=== PATIENT | male | born 1955 | race Caucasian/White ===

== ENCOUNTER 2017-04-25 17:58 | Day surgery (SDC) | payer BC ==
[~2017-04-25] VITALS: Ht 177.8 cm; Wt 115.2 kg
[~2017-04-25 17:58] MED LIST: ALLP300T PO; AMLO10TA4 PO; AMLO10TA82 PO; ASP81TEC PO; CLON1TAB18 PO; D50KC PO; DOXA4TAB2 PO; EPIN0.3P2 IM; FEXO180T84 PO; FLUT9.9S NS; GLIM1TAB PO; HYDR-229 PO; LORA10CA PO; METH4TAB PO; METO-333 PO; MONT10TA21 PO; NF-URO10 PO; OLME40TA14 PO; OMEP40CA36 PO; OXYC-201 PO; PNT40TEC PO; POTA10TA10 PO; RANI75TA30 PO; SPIR25TA3 PO; TORS10TA5 PO; TRM50T PO
--- OUTSIDE RECORDS SUMMARY | 2017-04-25 18:08 | XMS REPORT ---
Author Author THERESE OLIVIA [facility] eClinicalWorks Address Unknown Phone Unavailable Care Team Providers Care Battery Charger Tester Name Role Phone THERESE OLIVIA Unavailable Allergies No Known Allergies Problems Problem Type Condition Code Onset Dates Condition Status Assessment Encounter for immunization Z23 Active Medications No Known Medications Procedures Procedure Coding System Code Date SINGLE IMMUNIZATION ADMIN CPT-4 83996 Jun 03, 2016 FLUARIX QUAD P-FREE 3 AND UP .50 2015 CPT-4 02124 Jun 03, 2016 Results No Known Results Immunizations Vaccine Administration Date FLUARIX QUAD P-FREE 3 AND UP .50 2015Jun 03, 2016 Summary Purpose eClinicalWorks Submission
--- OUTSIDE RECORDS SUMMARY | 2017-04-25 18:08 | XMS REPORT | Clinical Summary ---
Author Author User, BRITT Macias [facility] Address Unknown Phone Allergies, Adverse Reactions, Alerts Allergy Name Reaction Description Start Date Severity Status Provider VALTURNA Critical Active Yulia Cruz XYLOCAINE Critical Active Yulia Cruz PENICILLIN Critical Active Yulia Cruz Conditions or Problems Problem Name Problem Code Onset Date Status Entry Date Provider Comment Standard Description Annotate RENAL CALCULUS 592.0 Resolved Yulia Cruz Calculus of kidney ACQUIRED CYST OF KIDNEY 593.2 Resolved Yulia Cruz Cyst of kidney, acquired HYPERTENSION 401.1 Resolved Yulia Cruz Benign essential hypertension ALLERGIC RHINITIS, SEASONAL 477.0 Resolved Yulia Cruz Allergic rhinitis due to pollen ANGIOEDEMA 995.1 Resolved Yulia Cruz Angioneurotic edema, not elsewhere classified EDEMA LEG 782.3 Resolved Yulia Cruz Edema ANEMIA NOS 285.9 Resolved Yulia Cruz Anemia, unspecified HYPERCALCEMIA 275.42 Resolved Yulia Cruz Hypercalcemia HYPERGLYCEMIA, MILD 790.6 Correction Yulia Cruz Other abnormal blood chemistry DIABETES MELLITUS, NONINSULIN DEPENDENT (NIDDM) 250.02 Active Yulia Cruz Diabetes mellitus without mention of complication, type II or unspecified type, uncontrolled HYPERTENSION, SEVERE 401.0 Active Yulia Cruz Malignant essential hypertension DIZZINESS 780.4 Resolved Yulia Cruz Dizziness and giddiness HYPOKALEMIA 276.8 Resolved Yulia Cruz Hypopotassemia FLANK PAIN, RIGHT 789.09 Resolved Yulia Cruz Abdominal pain, other specified site; multiple sites ABDOMINAL PAIN, RIGHT UPPER QUADRANT 789.01 Resolved Yulia Cruz Abdominal pain, right upper quadrant OTITIS MEDIA 382.9 Resolved Yulia Cruz Unspecified otitis media URINARY FREQUENCY 788.41 Resolved Yulia Cruz Urinary frequency HEALTH SCREENING V70.0 Resolved Yulia Cruz Routine general medical examination at a health care facility CHEST PAIN, ATYPICAL 786.59 Resolved Yulia Cruz Other chest pain DYSPNEA 786.09 Resolved Yulia Cruz Other dyspnea and respiratory abnormality CONJUNCTIVITIS 372.30 Resolved Yulia Cruz Conjunctivitis, unspecified ELECTROCARDIOGRAM, ABNORMAL 794.31 Resolved Yulia Cruz Nonspecific abnormal electrocardiogram [ECG] [EKG] WEIGHT GAIN, ABNORMAL 783.1 Active Yulia Cruz Abnormal weight gain HEALTH SCREENING V70.0 Resolved Yulia Cruz Routine general medical examination at a health care facility BRADYCARDIA 427.89 Active Yulia Cruz Other specified cardiac dysrhythmias HEADACHE 784.0 Active Yulia Cruz Headache CELLULITIS 682.9 Resolved Yulia Cruz Cellulitis and abscess of unspecified sites HEALTH SCREENING V70.0 Active Yulia Cruz Routine general medical examination at a health care facility Medication List Medication Instructions Start Date Stop Date Generic Name NDC Status Provider Patient Instruction TIZANIDINE HCL 2 MG TABS 1-2 TABS PO QHS TIZANIDINE HCL 79206892038 Active Nohemi Swartz ZYRTEC 10 MG TAB 1 PO QD CETIRIZINE HCL Active Yulia Cruz KEFLEX 500 MG CAP 1 PO TID for 7 days CEPHALEXIN 91317967525 No Longer Active Yuliamilagros Cruz BYDUREON 2 MG SUSR 1 injection weekly EXENATIDE 67759400379 Active Nohemi Swartz TOPAMAX 25 MG TABS 1 PO BID TOPIRAMATE 30949023529 No Longer Active Yulia Cruz FIORINAL 325-50-40 MG CAP 1 PO TID prn ASPIRIN- CAFFEINE-BUTALBITAL 78075089960 No Longer Active Yulia Cruz FLUTICASONE PROPIONATE 50 MCG/ACT SUSP 2 Puffs Each Nostril Daily FLUTICASONE PROPIONATE 98348693577 Active Yulia Cruz METOPROLOL TARTRATE 25 MG TABS 1 PO BID METOPROLOL TARTRATE 73603619402 No Longer Active Yulia Cruz DINA ALLERGY 180 MG TABS 1 po daily FEXOFENADINE HCL 15222114677 No Longer Active Yulia Cruz DOXAZOSIN MESYLATE 4 MG TABS 1 PO QPM DOXAZOSIN MESYLATE 59765383965 Active Nohemi Swartz DEMADEX 20 MG TABS 1/2 PO daily TORSEMIDE 67369076022 No Longer Active Yulia Cruz TORSEMIDE 10 MG TABS 1 pO DAILY TORSEMIDE 10331515219 Active Nohemi Swratz [employer] TEST DISK Test BS BID DX: Diabetes GLUCOSE BLOOD 14190734595 Active Nohemi Swartz CATAPRES 0.1 MG TABS 1 PO BID CLONIDINE HCL 26737386181 No Longer Active Yulia Ny Cruz EPLERENONE 50 MG TABS 1 PO daily EPLERENONE 59866281099 No Longer Active Yulia Ny Cruz ALDACTONE 25 MG TABS 1 PO daily SPIRONOLACTONE 98466435555 Active Nohemi Swartz HYDROCHLOROTHIAZIDE 25 MG TAB 1 PO daily HYDROCHLOROTHIAZIDE 10380666047 No Longer Active Yulia Ny Cruz OMEPRAZOLE 20 MG CPDR 1 PO BID OMEPRAZOLE 16621305095 No Longer Active Yulia Ny Cruz CARAFATE 1 GM TABS 1 PO 30 minutes before meals and at bedtime SUCRALFATE 41805434336 No Longer Active Yulia Ny Cruz ALLOPURINOL 300 MG TABS 1 PO daily ALLOPURINOL 96637589445 No Longer Active Yulia Ny Cruz BENICAR 20 MG TABS 1 PO daily OLMESARTAN MEDOXOMIL 32275665621 No Longer Active Yulia Ny Cruz BENTYL 10 MG CAP 1 PO QID prn abdominal pain DICYCLOMINE HCL 28256516364 No Longer Active Yulia Ny Cruz VITAMIN D (ERGOCALCIFEROL) 10994 UNIT CAPS 1 PO every week ERGOCALCIFEROL 13133990927 Active Nohemi Swartz OCUFLOX 0.3 % SOLN 2 drops left ear BID for 5 days OFLOXACIN 57058089251 No Longer Active Yulia Ny Cruz KEFLEX 500 MG CAP 1 PO TID for 7 days CEPHALEXIN 97920342721 No Longer Active Yulia Ny Cruz OMEPRAZOLE 20 MG CPDR 1 PO BID OMEPRAZOLE 17302361423 No Longer Active Yulia Ny Cruz PREDNISONE 20 MG TAB 2 pills at once for 2 days then 1 pill daily for 2 days PREDNISONE 54195908990 No Longer Active Yulia Ny Cruz NORCO 10-325 MG TABS 1 PO TID prn HYDROCODONE-ACETAMINOPHEN 12256675301 Active Yulia Cruz ULTRAM 50 MG TABS 1 PO TID prn pain TRAMADOL HCL 98970199259 No Longer Active Yulia Alejandra Anthony K-DUR 10 MEQ TAB CR 1 PO BID prn POTASSIUM CHLORIDE No Longer Active Yulia Roachner LASIX 20 MG TAB 1 PO daily prn FUROSEMIDE 37450299504 No Longer Active Yulia Roachner EPIPEN 2-AYAH 0.3 MG/0.3ML AYDIN as directed EPINEPHRINE 14653462434 Active Yulia Roachner NORVASC 10 MG TABS 1 PO daily AMLODIPINE BESYLATE 87023226819 Active Nohemi Mcelroytis CLARITIN 10 MG TAB 1 PO daily LORATADINE 04357517587 No Longer Active Yulia Alejandra Anthony Immunizations Vaccine Administration Date Value Standard Description Influenza vaccine given done influenza virus vaccine, unspecified formulation Influenza vaccine given 08/02/11 influenza virus vaccine, unspecified formulation Vital Signs Date Name Value Unit Range Description blood pressure, diastolic - 8462-4 82 mm[Hg] BP erazo blood pressure, systolic - 8480-6 135 mm[Hg] BP sys pulse rate E&M - 8867-4 82 /min Heart rate respiratory rate E&M - 9279-1 14 /min Resp rate temperature E&M 98.6 [degF] Body temperature weight E&M - 3141-9 250 [lb_av] Weight Measured blood pressure, diastolic - 8462-4 80 mm[Hg] BP erazo blood pressure, systolic - 8480-6 134 mm[Hg] BP sys pulse rate E&M - 8867-4 74 /min Heart rate respiratory rate E&M - 9279-1 14 /min Resp rate temperature E&M 98.6 [degF] Body temperature weight E&M - 3141-9 255 [lb_av] Weight Measured blood pressure, diastolic - 8462-4 94 mm[Hg] BP erazo blood pressure, systolic - 8480-6 156 mm[Hg] BP sys pulse rate E&M - 8867-4 82 /min Heart rate respiratory rate E&M - 9279-1 14 /min Resp rate temperature E&M 98.1 [degF] Body temperature weight E&M - 3141-9 260 [lb_av] Weight Measured blood pressure, diastolic - 8462-4 82 mm[Hg] BP erazo blood pressure, systolic - 8480-6 140 mm[Hg] BP sys pulse rate E&M - 8867-4 90 /min Heart rate respiratory rate E&M - 9279-1 14 /min Resp rate temperature E&M 98.6 [degF] Body temperature weight E&M - 3141-9 255 [lb_av] Weight Measured blood pressure, diastolic - 8462-4 84 mm[Hg] BP erazo blood pressure, systolic - 8480-6 152 mm[Hg] BP sys pulse rate E&M - 8867-4 68 /min Heart rate respiratory rate E&M - 9279-1 14 /min Resp rate weight E&M - 3141-9 260 [lb_av] Weight Measured blood pressure, diastolic - 8462-4 90 mm[Hg] BP erazo blood pressure, systolic - 8480-6 150 mm[Hg] BP sys pulse rate E&M - 8867-4 76 /min Heart rate respiratory rate E&M - 9279-1 14 /min Resp rate temperature E&M 98.6 [degF] Body temperature weight E&M - 3141-9 260 [lb_av] Weight Measured blood pressure, diastolic - 8462-4 80 mm[Hg] BP erazo blood pressure, systolic - 8480-6 145 mm[Hg] BP sys pulse rate E&M - 8867-4 80 /min Heart rate respiratory rate E&M - 9279-1 14 /min Resp rate temperature E&M 98.6 [degF] Body temperature weight E&M - 3141-9 265 [lb_av] Weight Measured blood pressure, diastolic - 8462-4 100 mm[Hg] BP erazo blood pressure, systolic - 8480-6 150 mm[Hg] BP sys pulse rate E&M - 8867-4 88 /min Heart rate respiratory rate E&M - 9279-1 14 /min Resp rate temperature E&M 98.6 [degF] Body temperature weight E&M - 3141-9 270 [lb_av] Weight Measured Diagnostic Results Date Name Value Unit Range Description Clinical Lists Update: CBC,CMP,Chol,Trig,HgA1c,Microalbumin - Chemistry triglyceride, serum, fasting 88 mg/dL creatinine, serum 0.9 mg/dL alanine aminotransferase (SGPT), serum 41 U/L hemoglobin A1C, blood, as % of total hemoglobin 7.1 % carbon dioxide, venous blood 21 mmol/L aspartate aminotransferase (SGOT), serum 19 U/L cholesterol, serum 151 mg/dL bilirubin, serum, total 0.7 mg/dL albumin, serum 4.3 g/dL Estimated Glomerular Filtration Rate (calc) >60 mL/min/1.73m2 alkaline phosphatase, serum 55 U/L potassium, serum 4.1 mmol/L urea nitrogen, blood 16 mg/dL sodium, serum 139 mmol/L calcium, serum 9.2 mg/dL protein, total, serum 6.9 g/dL chloride, serum 107 mmol/L glucose, plasma fasting 164 mg/dL Clinical Lists Update: CBC,CMP,Chol,Trig,HgA1c,Microalbumin - Hematology hematocrit, blood 44.0 % red blood cell distribution width 13.8 % mean corpuscular volume, RBC 89 fL leukocyte count, blood 6.3 10*3/mm3 erythrocyte (RBC) count 4.92 10*6/mm3 platelet count 216 10*3/mm3 hemoglobin, blood 14.6 g/dL Clinical Lists Update: CMP,FLP,HGA1C - Chemistry albumin, serum 4.3 g/dL alkaline phosphatase, serum 51 U/L urea nitrogen, blood 19 mg/dL calcium, serum 9.3 mg/dL chloride, serum 108 mmol/L cholesterol, serum 145 mg/dL carbon dioxide, venous blood 22 mmol/L creatinine, serum 0.8 mg/dL HDL cholesterol, serum 37 mg/dL hemoglobin A1C, blood, as % of total hemoglobin 7.3 % LDL cholesterol, serum 88 mg/dL potassium, serum 4.1 mmol/L protein, total, serum 6.7 g/dL aspartate aminotransferase (SGOT), serum 14 U/L alanine aminotransferase (SGPT), serum 28 U/L bilirubin, serum, total 0.6 mg/dL triglyceride, serum, fasting 101 mg/dL sodium, serum 141 mmol/L cholesterol/HDL ratio, serum, percent 3.9 glucose, plasma fasting 142 mg/dL Estimated Glomerular Filtration Rate (calc) >60 mL/min/1.73m2 Clinical Lists Update: CMP,FLP,TSH,HgA1c - Chemistry Estimated Glomerular Filtration Rate (calc) >50 mL/min/1.73m2 glucose, plasma fasting 155 mg/dL cholesterol/HDL ratio, serum, percent 3.8 sodium, serum 141 mmol/L triglyceride, serum, fasting 66 mg/dL bilirubin, serum, total 0.4 mg/dL alanine aminotransferase (SGPT), serum 38 U/L aspartate aminotransferase (SGOT), serum 16 U/L protein, total, serum 6.6 g/dL potassium, serum 3.6 mmol/L LDL cholesterol, serum 99 mg/dL thyroid stimulating hormone, serum 2.21 u[iU]/mL hemoglobin A1C, blood, as % of total hemoglobin 7.7 % HDL cholesterol, serum 40 mg/dL creatinine, serum 0.8 mg/dL carbon dioxide, venous blood 22 mmol/L cholesterol, serum 152 mg/dL chloride, serum 108 mmol/L calcium, serum 8.8 mg/dL urea nitrogen, blood 11 mg/dL alkaline phosphatase, serum 55 U/L albumin, serum 4.2 g/dL Clinical Lists Update: ER LABS - Chemistry bilirubin, serum, total 0.7 mg/dL albumin, serum 4.6 g/dL glucose, plasma fasting 169 mg/dL Estimated Glomerular Filtration Rate (calc) >60 mL/min/1.73m2 alanine aminotransferase (SGPT), serum 34 U/L aspartate aminotransferase (SGOT), serum 20 U/L protein, total, serum 7.5 g/dL potassium, serum 3.9 mmol/L creatinine, serum 0.87 mg/dL carbon dioxide, venous blood 23 mmol/L chloride, serum 105 mmol/L calcium, serum 9.2 mg/dL urea nitrogen, blood 16 mg/dL alkaline phosphatase, serum 53 U/L sodium, serum 140 mmol/L Clinical Lists Update: ER LABS - Hematology erythrocyte (RBC) count 5.16 10*6/mm3 leukocyte count, blood 7.0 10*3/mm3 mean corpuscular volume, RBC 86 fL red blood cell distribution width 13.7 % platelet count 256 10*3/mm3 hematocrit, blood 44 % hemoglobin, blood 15.4 g/dL Clinical Lists Update: ER LABS - Urinalysis blood in urine (hemoglobin) by dipstick neg protein, urine, semiquantitative (dipstick) neg mucus on urinalysis neg epithelial cells, urine rare /[LPF] hyaline casts, urine none /[LPF] bacteria, urine microscopy none RBC urine by microscopy none WBC urine on microscopy none {Cells}/[HPF] appearance, urine Clear Yellow urobilinogen, urine, semiquantitative (dipstick) normal specific gravity, urine 1.015 pH, urine, semiquantitative 5 nitrite, urine, semiquantitative neg ketones, urine, by test strip neg glucose, urine, semiquantitative neg bilirubin, urine neg Clinical Lists Update: Microalbumin - Urinalysis microalbumin, urine, semiquantitative 0.6 mg/dL Encounters Code Encounter Date Provider Facility CPT-61116 Ofc Vst, Est Level IV 19:28:17 SCREENER OPERATOR Yulia Cruz DO, FACP CPT-68116 Ofc Vst, Est Level III 13:16:58 CDT Yulia Bender S Anthony, DO, FACP CPT-04112 Ofc Vst, Est Level IV 17:21:21 CDT Yulia Ny Del Rio Anthony, DO, FACP CPT-73026 Ofc Vst, Est Level III 15:17:17 CDT Yulia Ny Del Rio Anthony, DO, FACP CPT-23178 Ofc Vst, Est Level III 15:56:42 CDT Yulia Ny Del Rio Anthony, DO, FACP CPT-43131 Ofc Vst, Est Level IV 20:17:52 CDT Yulia Ny Del Rio Anthony, DO, FACP CPT-52005 Ofc Vst, Est Level IV 16:24:31 CDT Yuliamilagros Cruz [facility] CPT-84894 Ofc Vst, Est Level IV 19:42:41 SCREENER OPERATOR Yuliamilagros Del Rio Anthony, DO, FACP CPT-43853 Ofc Vst, Est Level III 12:16:29 CDT Yuliamilagros Del Rio Anthony, DO, FACP CPT-31612 Ofc Vst, Est Level III 14:15:44 SCREENER OPERATOR Yulia Del Rio Anthony, DO, FACP CPT-60193 Ofc Vst, Est Level II 13:59:22 SCREENER OPERATOR Yuliamilagros Del Rio Anthony, DO, FACP CPT-31192 Ofc Vst, Est Level III 16:44:22 CDT Yuliamilagros Del Rio Anthony, DO, FACP CPT-92683 Ofc Vst, Est Level IV 15:56:20 CDT Yuliamilagros Cruz [facility] CPT-44150 Ofc Vst, Est Level IV 15:37:15 CDT Yulia Ny Cruz [facility] CPT-43751 Ofc Vst, Est Level III 16:02:15 SCREENER OPERATOR Yulia Ny Treadwellmilagros Cruz DO, FACP CPT-95779 Ofc Vst, Est Level IV 16:07:44 SCREENER OPERATOR [facility] Ny [facility] OFF[facility] CPT-08951 Ofc Vst, Est Level III 15:08:39 SCREENER OPERATOR [facility] OFFICE CPT-52933 Ofc Vst, Est Level V 15:13:27 CDT [facility] Ny Cruz Yulia Cruz DO, FACP CPT-03808 Ofc Vst, New Level IV 17:01:35 CDT [facility] Ny [facility] Procedures Code Procedure Name Date Entry Date Standard Description CPT-15964 Preventive, Est, (40-64) 19:33:45 CDT CPT-03870 EKG w/ Interpretation 16:24:31 CDT CPT-28753 Preventive, Est, (40-64) 12:55:40 SCREENER OPERATOR CPT-70258 EKG w/ Interpretation 19:42:41 SCREENER OPERATOR CPT-77068 Preventive, Est, (40-64) 20:10:48 CDT
--- OUTSIDE RECORDS SUMMARY | 2017-04-25 18:08 | XMS REPORT | Clinical Summary ---
Author Author User, BRITT Organization [facility] Address Unknown Phone Allergies, Adverse Reactions, [...] TABS 1-2 TABS PO QHS TIZANIDINE HCL 36722496067 Active Nohemi Swartz ZYRTEC 10 MG TAB 1 PO QD CETIRIZINE HCL Active Yuliamilagros Cruz KEFLEX 500 MG CAP 1 PO TID for 7 days CEPHALEXIN 89226484879 No Longer Active Yulia Ny Cruz BYDUREON 2 MG SUSR 1 injection weekly EXENATIDE 14675614922 Active Nohemi Swartz TOPAMAX 25 MG TABS 1 PO BID TOPIRAMATE 92633242703 No Longer Active Yuliamilagros Cruz FIORINAL 325-50-40 MG CAP 1 PO TID prn ASPIRIN- CAFFEINE-BUTALBITAL 54392619302 No Longer Active Yuliamilagros Cruz FLUTICASONE PROPIONATE 50 MCG/ACT SUSP 2 Puffs Each Nostril Daily FLUTICASONE PROPIONATE 65429833829 Active Yuliamilagros Cruz METOPROLOL TARTRATE 25 MG TABS 1 PO BID METOPROLOL TARTRATE 69133641984 No Longer Active Yulia Cruz DINA ALLERGY 180 MG TABS 1 po daily FEXOFENADINE HCL 85048701813 No Longer Active Yuliamilagros Cruz DOXAZOSIN MESYLATE 4 MG TABS 1 PO QPM DOXAZOSIN MESYLATE 33998169758 Active Nohemi Swartz DEMADEX 20 MG TABS 1/2 PO daily TORSEMIDE 18310315073 No Longer Active Yuliamilagros Cruz TORSEMIDE 10 MG TABS 1 pO DAILY TORSEMIDE 43608479438 Active Nohemi Swartz [employer] TEST DISK Test BS BID DX: Diabetes GLUCOSE BLOOD 42294647638 Active Nohemi Swartz CATAPRES 0.1 MG TABS 1 PO BID CLONIDINE HCL 31465092442 No Longer Active Yulia Ny Cruz EPLERENONE 50 MG TABS 1 PO daily EPLERENONE 86170074641 No Longer Active Yulia Ny Cruz ALDACTONE 25 MG TABS 1 PO daily SPIRONOLACTONE 42617279641 Active Nohemi Swartz HYDROCHLOROTHIAZIDE 25 MG TAB 1 PO daily HYDROCHLOROTHIAZIDE 56363271520 No Longer Active Yulia Ny Cruz OMEPRAZOLE 20 MG CPDR 1 PO BID OMEPRAZOLE 10405674055 No Longer Active Yulia Ny Cruz CARAFATE 1 GM TABS 1 PO 30 minutes before meals and at bedtime SUCRALFATE 73916373147 No Longer Active Yulia Ny Cruz ALLOPURINOL 300 MG TABS 1 PO daily ALLOPURINOL 62730798633 No Longer Active Yulia Ny Cruz BENICAR 20 MG TABS 1 PO daily OLMESARTAN MEDOXOMIL 11708295791 No Longer Active Yulia Ny Cruz BENTYL 10 MG CAP 1 PO QID prn abdominal pain DICYCLOMINE HCL 49803224532 No Longer Active Yulia Ny Cruz VITAMIN D (ERGOCALCIFEROL) 18512 UNIT CAPS 1 PO every week ERGOCALCIFEROL 52251929982 Active Nohemijanet Swartz OCUFLOX 0.3 % SOLN 2 drops left ear BID for 5 days OFLOXACIN 64616825554 No Longer Active Yulia Ny Cruz KEFLEX 500 MG CAP 1 PO TID for 7 days CEPHALEXIN 23680739235 No Longer Active Yulia Ny Cruz OMEPRAZOLE 20 MG CPDR 1 PO BID OMEPRAZOLE 80797348884 No Longer Active Yulia Ny Cruz PREDNISONE 20 MG TAB 2 pills at once for 2 days then 1 pill daily for 2 days PREDNISONE 10133819511 No Longer Active Yulia Ny Cruz NORCO 10-325 MG TABS 1 PO TID prn HYDROCODONE-ACETAMINOPHEN 89712989646 Active Yulia Alejandra Anthony ULTRAM 50 MG TABS 1 PO TID prn pain TRAMADOL HCL 05283565112 No Longer Active Yulia Cruz K-DUR 10 MEQ TAB CR 1 PO BID prn POTASSIUM CHLORIDE No Longer Active Yuliamilagros Cruz LASIX 20 MG TAB 1 PO daily prn FUROSEMIDE 43972429431 No Longer Active Yuliamilagros Cruz EPIPEN 2-AYAH 0.3 MG/0.3ML AYDIN as directed EPINEPHRINE 35083885161 Active Yulia Ny Anthony NORVASC 10 MG TABS 1 PO daily AMLODIPINE BESYLATE 05211612808 Active Nohemi Swartz CLARITIN 10 MG TAB 1 PO daily LORATADINE 24103109137 No Longer Active Yulia Cruz Immunizations Vaccine Administration Date Value Standard Description [...] mg/dL Encounters Code Encounter Date Provider Facility CPT-35702 Ofc Vst, Est Level IV 19:28:17 ROOM ATTENDANTS Yulia Cruz DO, FACP CPT-95135 Ofc Vst, Est Level III 13:16:58 CDT Yulia Ny Cruz Yulia S Cruz, DO, FACP CPT-46291 Ofc Vst, Est Level IV 17:21:21 CDT Yulia Ny Del Rio Anthony, DO, FACP CPT-25404 Ofc Vst, Est Level III 15:17:17 CDT Yulia Ny Del Rio Anthony, DO, FACP CPT-63687 Ofc Vst, Est Level III 15:56:42 CDT Yulia Ny Del Rio Anthony, DO, FACP CPT-44532 Ofc Vst, Est Level IV 20:17:52 CDT Yulia Ny Del Rio Anthony, DO, FACP CPT-05187 Ofc Vst, Est Level IV 16:24:31 CDT Yuliamilagros Cruz [facility] CPT-80256 Ofc Vst, Est Level IV 19:42:41 ROOM ATTENDANTS Yuliamilagros Del Rio Anthony, DO, FACP CPT-63503 Ofc Vst, Est Level III 12:16:29 CDT Yulia Ny Del Rio Anthony, DO, FACP CPT-51491 Ofc Vst, Est Level III 14:15:44 ROOM ATTENDANTS Yulia Del Rio Anthony, DO, FACP CPT-38841 Ofc Vst, Est Level II 13:59:22 ROOM ATTENDANTS Yuliamilagros Del Rio Anthony, DO, FACP CPT-47465 Ofc Vst, Est Level III 16:44:22 CDT Yuliamilagros Del Rio Anthony, DO, FACP CPT-75219 Ofc Vst, Est Level IV 15:56:20 CDT Yuliamilagros Cruz [facility] CPT-88614 Ofc Vst, Est Level IV 15:37:15 CDT Yuliamilagros Alejandra Cruz [facility] CPT-81294 Ofc Vst, Est Level III 16:02:15 ROOM ATTENDANTS Yulia Ny Cruz Yulia Cruz DO, FACP CPT-71265 Ofc Vst, Est Level IV 16:07:44 ROOM ATTENDANTS [facility] OFF[facility] CPT-24107 Ofc Vst, Est Level III 15:08:39 ROOM ATTENDANTS [facility] OFFICE CPT-73785 Ofc Vst, Est Level V 15:13:27 CDT [facility] Cruz Yulia Cruz DO, FACP CPT-33615 Ofc Vst, New Level IV 17:01:35 CDT [facility] Procedures Code Procedure Name Date Entry Date Standard Description CPT-18245 Preventive, Est, (40-64) 19:33:45 CDT CPT-96289 EKG w/ Interpretation 16:24:31 CDT CPT-31426 Preventive, Est, (40-64) 12:55:40 ROOM ATTENDANTS CPT-93939 EKG w/ Interpretation 19:42:41 ROOM ATTENDANTS CPT-63682 Preventive, Est, (40-64) 20:10:48 CDT
--- OUTSIDE RECORDS SUMMARY | 2017-04-25 18:09 | XMS REPORT | Clinical Summary ---
Author Author User, BRITT Macias [place] [facility] Address Unknown Phone Allergies, Adverse Reactions, [...] TABS 1-2 TABS PO QHS TIZANIDINE HCL 42561031018 Active Nohemi Swartz ZYRTEC 10 MG TAB 1 PO QD CETIRIZINE HCL Active Yulia Cruz KEFLEX 500 MG CAP 1 PO TID for 7 days CEPHALEXIN 23833070402 No Longer Active Yuliamilagros Cruz BYDUREON 2 MG SUSR 1 injection weekly EXENATIDE 40283400046 Active Nohemi Swartz TOPAMAX 25 MG TABS 1 PO BID TOPIRAMATE 96280317897 No Longer Active Yulia Cruz FIORINAL 325-50-40 MG CAP 1 PO TID prn ASPIRIN- CAFFEINE-BUTALBITAL 67131912962 No Longer Active Yulia Cruz FLUTICASONE PROPIONATE 50 MCG/ACT SUSP 2 Puffs Each Nostril Daily FLUTICASONE PROPIONATE 50802558574 Active Yulia Cruz METOPROLOL TARTRATE 25 MG TABS 1 PO BID METOPROLOL TARTRATE 44255731520 No Longer Active Yulia Cruz DINA ALLERGY 180 MG TABS 1 po daily FEXOFENADINE HCL 12161645407 No Longer Active Yulia Cruz DOXAZOSIN MESYLATE 4 MG TABS 1 PO QPM DOXAZOSIN MESYLATE 66627518496 Active Nohemi Swartz DEMADEX 20 MG TABS 1/2 PO daily TORSEMIDE 49363685199 No Longer Active Yulia Cruz TORSEMIDE 10 MG TABS 1 pO DAILY TORSEMIDE 79233667087 Active Nohemi Swartz [employer] TEST DISK Test BS BID DX: Diabetes GLUCOSE BLOOD 13045207300 Active Nohemi Swartz CATAPRES 0.1 MG TABS 1 PO BID CLONIDINE HCL 61266824699 No Longer Active Yulia Ny Cruz EPLERENONE 50 MG TABS 1 PO daily EPLERENONE 02479763404 No Longer Active Yulia Ny Cruz ALDACTONE 25 MG TABS 1 PO daily SPIRONOLACTONE 21645969497 Active Nohemi Swartz HYDROCHLOROTHIAZIDE 25 MG TAB 1 PO daily HYDROCHLOROTHIAZIDE 39489552703 No Longer Active Yulia Ny Cruz OMEPRAZOLE 20 MG CPDR 1 PO BID OMEPRAZOLE 69227176036 No Longer Active Yulia Ny Cruz CARAFATE 1 GM TABS 1 PO 30 minutes before meals and at bedtime SUCRALFATE 15952992273 No Longer Active Yulia Ny Cruz ALLOPURINOL 300 MG TABS 1 PO daily ALLOPURINOL 35943104456 No Longer Active Yulia Ny Cruz BENICAR 20 MG TABS 1 PO daily OLMESARTAN MEDOXOMIL 42112815640 No Longer Active Yulia Ny Cruz BENTYL 10 MG CAP 1 PO QID prn abdominal pain DICYCLOMINE HCL 15139164276 No Longer Active Yulia Ny Cruz VITAMIN D (ERGOCALCIFEROL) 19695 UNIT CAPS 1 PO every week ERGOCALCIFEROL 84162360407 Active Nohemi Swartz OCUFLOX 0.3 % SOLN 2 drops left ear BID for 5 days OFLOXACIN 13874104493 No Longer Active Yulia Ny Cruz KEFLEX 500 MG CAP 1 PO TID for 7 days CEPHALEXIN 95302885966 No Longer Active Yulia Ny Cruz OMEPRAZOLE 20 MG CPDR 1 PO BID OMEPRAZOLE 29278066626 No Longer Active Yulia Ny Cruz PREDNISONE 20 MG TAB 2 pills at once for 2 days then 1 pill daily for 2 days PREDNISONE 52277752160 No Longer Active Yulia Ny Cruz NORCO 10-325 MG TABS 1 PO TID prn HYDROCODONE-ACETAMINOPHEN 37314846331 Active Yulia Cruz ULTRAM 50 MG TABS 1 PO TID prn pain TRAMADOL HCL 74327668791 No Longer Active Yulia Alejandra Anthony K-DUR 10 MEQ TAB CR 1 PO BID prn POTASSIUM CHLORIDE No Longer Active Yulia Roachner LASIX 20 MG TAB 1 PO daily prn FUROSEMIDE 35505974809 No Longer Active Yulia Roachner EPIPEN 2-AYAH 0.3 MG/0.3ML AYDIN as directed EPINEPHRINE 39752465675 Active Yulia Roachner NORVASC 10 MG TABS 1 PO daily AMLODIPINE BESYLATE 67508830810 Active Nohemi Mcelroytis CLARITIN 10 MG TAB 1 PO daily LORATADINE 86119951492 No Longer Active Yulia Alejandra Anthony Immunizations [...] mg/dL Encounters Code Encounter Date Provider Facility CPT-40976 Ofc Vst, Est Level IV 19:28:17 DOCK OPERATIONS SUPERVISOR Yulia Cruz DO, FACP CPT-53215 Ofc Vst, Est Level III 13:16:58 CDT Yulia Bender S Anthony, DO, FACP CPT-69893 Ofc Vst, Est Level IV 17:21:21 CDT Yulia Ny Del Rio Anthony, DO, FACP CPT-17855 Ofc Vst, Est Level III 15:17:17 CDT Yulia Ny Del Rio Anthony, DO, FACP CPT-77373 Ofc Vst, Est Level III 15:56:42 CDT Yulia Ny Del Rio Anthony, DO, FACP CPT-82492 Ofc Vst, Est Level IV 20:17:52 CDT Yulia Ny Del Rio Anthony, DO, FACP CPT-85876 Ofc Vst, Est Level IV 16:24:31 CDT Yuliamilagros Cruz [facility] CPT-88949 Ofc Vst, Est Level IV 19:42:41 DOCK OPERATIONS SUPERVISOR Yuliamilagros Del Rio Anthony, DO, FACP CPT-01270 Ofc Vst, Est Level III 12:16:29 CDT Yuliamilagros Del Rio Anthony, DO, FACP CPT-35874 Ofc Vst, Est Level III 14:15:44 DOCK OPERATIONS SUPERVISOR Yulia Del Rio Anthony, DO, FACP CPT-16587 Ofc Vst, Est Level II 13:59:22 DOCK OPERATIONS SUPERVISOR Yuliamilagros Del Rio Anthony, DO, FACP CPT-79657 Ofc Vst, Est Level III 16:44:22 CDT Yuliamilagros Del Rio Anthony, DO, FACP CPT-82894 Ofc Vst, Est Level IV 15:56:20 CDT Yuliamilagros Cruz [facility] CPT-22096 Ofc Vst, Est Level IV 15:37:15 CDT Yulia Ny Cruz [facility] CPT-40763 Ofc Vst, Est Level III 16:02:15 DOCK OPERATIONS SUPERVISOR Yulia Ny Treadwellmilagros Cruz DO, FACP CPT-48904 Ofc Vst, Est Level IV 16:07:44 DOCK OPERATIONS SUPERVISOR [facility] Ny [facility] OFFICE CPT-35979 Ofc Vst, Est Level III 15:08:39 DOCK OPERATIONS SUPERVISOR [facility] OFFICE CPT-34105 Ofc Vst, Est Level V 15:13:27 CDT [facility] Ny Cruz Yulia Cruz DO, FACP CPT-31470 Ofc Vst, New Level IV 17:01:35 CDT [facility] Ny [facility] Procedures Code Procedure Name Date Entry Date Standard Description CPT-92825 Preventive, Est, (40-64) 19:33:45 CDT CPT-03500 EKG w/ Interpretation 16:24:31 CDT CPT-49202 Preventive, Est, (40-64) 12:55:40 DOCK OPERATIONS SUPERVISOR CPT-40288 EKG w/ Interpretation 19:42:41 DOCK OPERATIONS SUPERVISOR CPT-26745 Preventive, Est, (40-64) 20:10:48 CDT
--- OUTSIDE RECORDS SUMMARY | 2017-04-25 18:10 | XMS REPORT | Clinical Summary ---
Author Author User, BRITT Organization [place] [facility] Address Unknown Phone Allergies, Adverse Reactions, [...] essential hypertension ALLERGIC RHINITIS, SEASONAL 477.0 Resolved Yuila Cruz Allergic rhinitis due to pollen ANGIOEDEMA [...] TABS 1-2 TABS PO QHS TIZANIDINE HCL 71465325722 Active Nohemi Swartz ZYRTEC 10 MG TAB 1 PO QD CETIRIZINE HCL Active Yuliamilagros Cruz KEFLEX 500 MG CAP 1 PO TID for 7 days CEPHALEXIN 42428932472 No Longer Active Yulia Ny Cruz BYDUREON 2 MG SUSR 1 injection weekly EXENATIDE 19345583421 Active Nohemi Swartz TOPAMAX 25 MG TABS 1 PO BID TOPIRAMATE 87627543040 No Longer Active Yuliamilagros Cruz FIORINAL 325-50-40 MG CAP 1 PO TID prn ASPIRIN- CAFFEINE-BUTALBITAL 51857690267 No Longer Active Yuliamilagros Cruz FLUTICASONE PROPIONATE 50 MCG/ACT SUSP 2 Puffs Each Nostril Daily FLUTICASONE PROPIONATE 26029094796 Active Yuliamilagros Cruz METOPROLOL TARTRATE 25 MG TABS 1 PO BID METOPROLOL TARTRATE 92804471391 No Longer Active Yulia Cruz DINA ALLERGY 180 MG TABS 1 po daily FEXOFENADINE HCL 44285921080 No Longer Active Yuliamilagros Cruz DOXAZOSIN MESYLATE 4 MG TABS 1 PO QPM DOXAZOSIN MESYLATE 88179782644 Active Nohemi Swartz DEMADEX 20 MG TABS 1/2 PO daily TORSEMIDE 03555473749 No Longer Active Yuliamilagros Cruz TORSEMIDE 10 MG TABS 1 pO DAILY TORSEMIDE 62171870792 Active Nohemi Swartz [employer] TEST DISK Test BS BID DX: Diabetes GLUCOSE BLOOD 96755982987 Active Nohemi Swartz CATAPRES 0.1 MG TABS 1 PO BID CLONIDINE HCL 61246416294 No Longer Active Yulia Ny Cruz EPLERENONE 50 MG TABS 1 PO daily EPLERENONE 47048506255 No Longer Active Yulia Ny Cruz ALDACTONE 25 MG TABS 1 PO daily SPIRONOLACTONE 74334625112 Active Nohemi Swartz HYDROCHLOROTHIAZIDE 25 MG TAB 1 PO daily HYDROCHLOROTHIAZIDE 73270548563 No Longer Active Yulia Ny Cruz OMEPRAZOLE 20 MG CPDR 1 PO BID OMEPRAZOLE 84679448680 No Longer Active Yulia Ny Cruz CARAFATE 1 GM TABS 1 PO 30 minutes before meals and at bedtime SUCRALFATE 22879585419 No Longer Active Yulia Ny Cruz ALLOPURINOL 300 MG TABS 1 PO daily ALLOPURINOL 66666293994 No Longer Active Yulia Ny Cruz BENICAR 20 MG TABS 1 PO daily OLMESARTAN MEDOXOMIL 55906624092 No Longer Active Yulia Ny Cruz BENTYL 10 MG CAP 1 PO QID prn abdominal pain DICYCLOMINE HCL 44804519673 No Longer Active Yulia Ny Cruz VITAMIN D (ERGOCALCIFEROL) 20604 UNIT CAPS 1 PO every week ERGOCALCIFEROL 20701541662 Active Nohemijanet Swartz OCUFLOX 0.3 % SOLN 2 drops left ear BID for 5 days OFLOXACIN 74681803154 No Longer Active Yulia Ny Cruz KEFLEX 500 MG CAP 1 PO TID for 7 days CEPHALEXIN 88485019073 No Longer Active Yulia Ny Cruz OMEPRAZOLE 20 MG CPDR 1 PO BID OMEPRAZOLE 20812212481 No Longer Active Yulia Ny Cruz PREDNISONE 20 MG TAB 2 pills at once for 2 days then 1 pill daily for 2 days PREDNISONE 61944284352 No Longer Active Yulia Ny Cruz NORCO 10-325 MG TABS 1 PO TID prn HYDROCODONE-ACETAMINOPHEN 85426873966 Active Yulia Alejandra Anthony ULTRAM 50 MG TABS 1 PO TID prn pain TRAMADOL HCL 92606868915 No Longer Active Yulia Cruz K-DUR 10 MEQ TAB CR 1 PO BID prn POTASSIUM CHLORIDE No Longer Active Yuliamilagros Cruz LASIX 20 MG TAB 1 PO daily prn FUROSEMIDE 47689407853 No Longer Active Yuliamilagros Cruz EPIPEN 2-AYAH 0.3 MG/0.3ML AYDIN as directed EPINEPHRINE 08645939949 Active Yulia Ny Anthony NORVASC 10 MG TABS 1 PO daily AMLODIPINE BESYLATE 56806413361 Active Nohemi Swartz CLARITIN 10 MG TAB 1 PO daily LORATADINE 88238196447 No Longer Active Yulia Cruz Immunizations Vaccine [...] mg/dL Encounters Code Encounter Date Provider Facility CPT-95977 Ofc Vst, Est Level IV 19:28:17 HYDROGENATION STILL OPERATOR Yulia Cruz DO, FACP CPT-30155 Ofc Vst, Est Level III 13:16:58 CDT Yulia Ny Cruz Yulia S Cruz, DO, FACP CPT-79704 Ofc Vst, Est Level IV 17:21:21 CDT Yulia Ny Del Rio Anthony, DO, FACP CPT-89390 Ofc Vst, Est Level III 15:17:17 CDT Yulia Ny Del Rio Anthony, DO, FACP CPT-68585 Ofc Vst, Est Level III 15:56:42 CDT Yulia Ny Del Rio Anthony, DO, FACP CPT-56691 Ofc Vst, Est Level IV 20:17:52 CDT Yulia Ny Del Rio Anthony, DO, FACP CPT-73473 Ofc Vst, Est Level IV 16:24:31 CDT Yuliamilagros Cruz [facility] CPT-99681 Ofc Vst, Est Level IV 19:42:41 HYDROGENATION STILL OPERATOR Yuliamilagros Del Rio Anthony, DO, FACP CPT-70804 Ofc Vst, Est Level III 12:16:29 CDT Yulia Ny Del Rio Anthony, DO, FACP CPT-94042 Ofc Vst, Est Level III 14:15:44 HYDROGENATION STILL OPERATOR Yulia Del Rio Anthony, DO, FACP CPT-07981 Ofc Vst, Est Level II 13:59:22 HYDROGENATION STILL OPERATOR Yuliamilagros Del Rio Anthony, DO, FACP CPT-94308 Ofc Vst, Est Level III 16:44:22 CDT Yuliamilagros Del Rio Anthony, DO, FACP CPT-98604 Ofc Vst, Est Level IV 15:56:20 CDT Yuliamilagros Cruz [facility] CPT-66282 Ofc Vst, Est Level IV 15:37:15 CDT Yuliamilagros Alejandra Cruz [facility] CPT-81158 Ofc Vst, Est Level III 16:02:15 HYDROGENATION STILL OPERATOR Yulia Ny Cruz Yulia Cruz DO, FACP CPT-52415 Ofc Vst, Est Level IV 16:07:44 HYDROGENATION STILL OPERATOR [facility] CPT-72084 Ofc Vst, Est Level III 15:08:39 HYDROGENATION STILL OPERATOR [facility] OFF[facility] CPT-01573 Ofc Vst, Est Level V 15:13:27 CDT [facility] Ny Cruz Yulia Cruz DO, FACP CPT-08982 Ofc Vst, New Level IV 17:01:35 CDT [facility] Ny [facility] Procedures Code Procedure Name Date Entry Date Standard Description CPT-69207 Preventive, Est, (40-64) 19:33:45 CDT CPT-68289 EKG w/ Interpretation 16:24:31 CDT CPT-81218 Preventive, Est, (40-64) 12:55:40 HYDROGENATION STILL OPERATOR CPT-43368 EKG w/ Interpretation 19:42:41 HYDROGENATION STILL OPERATOR CPT-47527 Preventive, Est, (40-64) 20:10:48 CDT
--- OUTSIDE RECORDS SUMMARY | 2017-04-25 18:10 | XMS REPORT | Clinical Summary ---
Author Author User, BRITT Organization [place] [facility] Address Unknown Phone Allergies, Adverse Reactions, [...] abscess of unspecified sites HEALTH SCREENING V70.0 Resolved Yulia Cruz Routine general medical examination at a health care facility Medication List Medication Instructions Start Date Stop Date Generic Name NDC Status Provider Patient Instruction PRESTIGE SMART LANCETS TEST BS BID DX: 250.02 PRESTIGE SMART LANCETS Active Yuliamilagros Cruz TIZANIDINE HCL 2 MG TABS 1-2 TABS PO QHS TIZANIDINE HCL 32120646018 Active Nohemi Swartz ZYRTEC 10 MG TAB 1 PO QD CETIRIZINE HCL Active Yulia Ny Cruz KEFLEX 500 MG CAP 1 PO TID for 7 days CEPHALEXIN 39791576986 No Longer Active Yuliamilagros Cruz BYDUREON 2 MG SUSR 1 injection weekly EXENATIDE 75546062775 Active Nohemi Swartz TOPAMAX 25 MG TABS 1 PO BID TOPIRAMATE 41663445036 No Longer Active Yuliamilagros Cruz FIORINAL 325-50-40 MG CAP 1 PO TID prn ASPIRIN- CAFFEINE-BUTALBITAL 14113473011 No Longer Active Yuliamilagros Cruz FLUTICASONE PROPIONATE 50 MCG/ACT SUSP 2 Puffs Each Nostril Daily FLUTICASONE PROPIONATE 89304074912 Active Yulia Cruz METOPROLOL TARTRATE 25 MG TABS 1 PO BID METOPROLOL TARTRATE 01489569163 No Longer Active Yuliamilagros Cruz DINA ALLERGY 180 MG TABS 1 po daily FEXOFENADINE HCL 66741842383 No Longer Active Yuliamilagros Cruz DOXAZOSIN MESYLATE 4 MG TABS 1 PO QPM DOXAZOSIN MESYLATE 63699884330 Active Nohemi Swartz DEMADEX 20 MG TABS 1/2 PO daily TORSEMIDE 88931929376 No Longer Active Uyliamilagros Cruz TORSEMIDE 10 MG TABS 1 pO DAILY TORSEMIDE 45267922631 Active Nohemi Swartz [employer] TEST DISK Test BS BID DX: Diabetes GLUCOSE BLOOD 33876110099 Active Nohemi Maxime CATAPRES 0.1 MG TABS 1 PO BID CLONIDINE HCL 59388066018 No Longer Active Yulia Ny Cruz EPLERENONE 50 MG TABS 1 PO daily EPLERENONE 32366489163 No Longer Active Yulia Ny Cruz ALDACTONE 25 MG TABS 1 PO daily SPIRONOLACTONE 04116439159 Active Nohemijanet Swartz HYDROCHLOROTHIAZIDE 25 MG TAB 1 PO daily HYDROCHLOROTHIAZIDE 42374778782 No Longer Active Yulia Ny Cruz OMEPRAZOLE 20 MG CPDR 1 PO BID OMEPRAZOLE 78236015704 No Longer Active Yulia Ny Cruz CARAFATE 1 GM TABS 1 PO 30 minutes before meals and at bedtime SUCRALFATE 61705527457 No Longer Active Yulia Ny Cruz ALLOPURINOL 300 MG TABS 1 PO daily ALLOPURINOL 36128480940 No Longer Active Yulia Ny Cruz BENICAR 20 MG TABS 1 PO daily OLMESARTAN MEDOXOMIL 46417953274 No Longer Active Yulia Ny Cruz BENTYL 10 MG CAP 1 PO QID prn abdominal pain DICYCLOMINE HCL 59473612889 No Longer Active Yulia Ny Cruz VITAMIN D (ERGOCALCIFEROL) 00843 UNIT CAPS 1 PO every week ERGOCALCIFEROL 22703616791 Active Nohemijanet Swartz OCUFLOX 0.3 % SOLN 2 drops left ear BID for 5 days OFLOXACIN 95328770370 No Longer Active Yulia Ny Cruz KEFLEX 500 MG CAP 1 PO TID for 7 days CEPHALEXIN 11279818260 No Longer Active Yulia Ny Cruz OMEPRAZOLE 20 MG CPDR 1 PO BID OMEPRAZOLE 41537013183 No Longer Active Yulia Ny Cruz PREDNISONE 20 MG TAB 2 pills at once for 2 days then 1 pill daily for 2 days PREDNISONE 84428764012 No Longer Active Yulia Cruz NORCO 10-325 MG TABS 1 PO TID prn HYDROCODONE-ACETAMINOPHEN 69526031803 Active Yulia Cruz ULTRAM 50 MG TABS 1 PO TID prn pain TRAMADOL HCL 70707988419 No Longer Active Yulia Cruz K-DUR 10 MEQ TAB CR 1 PO BID prn POTASSIUM CHLORIDE No Longer Active Yulia Cruz LASIX 20 MG TAB 1 PO daily prn FUROSEMIDE 49692841052 No Longer Active Yulia Cruz EPIPEN 2-AAYH 0.3 MG/0.3ML AYDIN as directed EPINEPHRINE 51220391229 Active Yulia Cruz NORVASC 10 MG TABS 1 PO daily AMLODIPINE BESYLATE 20562551493 Active Nohemi Swartz CLARITIN 10 MG TAB 1 PO daily LORATADINE 87299031921 No Longer Active Yulia Cruz Immunizations Vaccine Administration Date Value Standard Description Influenza vaccine given done influenza virus vaccine, unspecified formulation Influenza vaccine given 08/02/11 influenza virus vaccine, unspecified formulation Vital Signs Date Name Value Unit Range Description blood pressure, diastolic - 8462-4 80 mm[Hg] BP erazo blood pressure, systolic - 8480-6 130 mm[Hg] BP sys pulse rate E&M - 8867-4 60 /min Heart rate respiratory rate E&M - 9279-1 14 /min Resp rate temperature E&M 98.2 [degF] Body temperature weight E&M - 3141-9 [...] E&M - 3141-9 255 [lb_av] Weight Measured Diagnostic Results Date Name Value Unit Range Description Clinical Lists Update: CBC,CMP,Chol,Trig,HgA1c,Microalbumin - Chemistry Estimated Glomerular Filtration Rate (calc) >60 mL/min/1.73m2 glucose, plasma fasting 164 mg/dL albumin, serum 4.3 g/dL alkaline phosphatase, serum 55 U/L urea nitrogen, blood 16 mg/dL calcium, serum 9.2 mg/dL chloride, serum 107 mmol/L cholesterol, serum 151 mg/dL sodium, serum 139 mmol/L triglyceride, serum, fasting 88 mg/dL bilirubin, serum, total 0.7 mg/dL alanine aminotransferase (SGPT), serum 41 U/L aspartate aminotransferase (SGOT), serum 19 U/L protein, total, serum 6.9 g/dL potassium, serum 4.1 mmol/L hemoglobin A1C, blood, as % of total hemoglobin 7.1 % creatinine, serum 0.9 mg/dL carbon dioxide, venous blood 21 mmol/L Clinical Lists Update: CBC,CMP,Chol,Trig,HgA1c,Microalbumin - Hematology mean corpuscular volume, RBC 89 fL red blood cell distribution width 13.8 % hemoglobin, blood 14.6 g/dL platelet count 216 10*3/mm3 erythrocyte (RBC) count 4.92 10*6/mm3 leukocyte count, blood 6.3 10*3/mm3 hematocrit, blood 44.0 % Clinical Lists Update: CMP,CHOL,TRIG,HgA1c - Chemistry Estimated Glomerular Filtration Rate (calc) >60 mL/min/1.73m2 glucose, plasma fasting 174 mg/dL sodium, serum 141 mmol/L triglyceride, serum, fasting 54 mg/dL bilirubin, serum, total 0.6 mg/dL alanine aminotransferase (SGPT), serum 37 U/L aspartate aminotransferase (SGOT), serum 19 U/L protein, total, serum 6.6 g/dL potassium, serum 4.0 mmol/L hemoglobin A1C, blood, as % of total hemoglobin 7.0 % creatinine, serum 0.8 mg/dL carbon dioxide, venous blood 23 mmol/L cholesterol, serum 155 mg/dL chloride, serum 107 mmol/L calcium, serum 9.1 mg/dL urea nitrogen, blood 12 mg/dL alkaline phosphatase, serum 49 U/L albumin, serum 4.3 g/dL Clinical Lists Update: CMP,FLP,HGA1C - Chemistry albumin, serum 4.3 g/dL Estimated Glomerular Filtration Rate (calc) >60 mL/min/1.73m2 urea nitrogen, blood 19 mg/dL calcium, serum [...] percent 3.9 glucose, plasma fasting 142 mg/dL alkaline phosphatase, serum 51 U/L Clinical Lists Update: CMP,FLP,TSH,HgA1c - Chemistry alkaline phosphatase, serum 55 U/L urea nitrogen, blood 11 mg/dL calcium, serum 8.8 mg/dL chloride, serum 108 mmol/L cholesterol, serum 152 mg/dL carbon dioxide, venous blood 22 mmol/L creatinine, serum 0.8 mg/dL HDL cholesterol, serum 40 mg/dL hemoglobin A1C, blood, as % of total hemoglobin 7.7 % thyroid stimulating hormone, serum 2.21 u[iU]/mL LDL cholesterol, serum 99 mg/dL potassium, serum 3.6 mmol/L protein, total, serum 6.6 g/dL aspartate aminotransferase (SGOT), serum 16 U/L alanine aminotransferase (SGPT), serum 38 U/L bilirubin, serum, total 0.4 mg/dL triglyceride, serum, fasting 66 mg/dL sodium, serum 141 mmol/L cholesterol/HDL ratio, serum, percent 3.8 glucose, plasma fasting 155 mg/dL albumin, serum 4.2 g/dL Estimated Glomerular Filtration Rate (calc) >50 mL/min/1.73m2 Clinical Lists Update: ER LABS - Chemistry sodium, serum 140 mmol/L albumin, serum 4.6 g/dL Estimated Glomerular Filtration Rate (calc) >60 mL/min/1.73m2 bilirubin, serum, total 0.7 mg/dL alanine aminotransferase (SGPT), serum 34 U/L aspartate aminotransferase (SGOT), serum 20 U/L protein, total, serum 7.5 g/dL potassium, serum 3.9 mmol/L creatinine, serum 0.87 mg/dL carbon dioxide, venous blood 23 mmol/L chloride, serum 105 mmol/L calcium, serum 9.2 mg/dL urea nitrogen, blood 16 mg/dL alkaline phosphatase, serum 53 U/L glucose, plasma fasting 169 mg/dL Clinical Lists Update: ER LABS - Hematology leukocyte count, blood 7.0 10*3/mm3 mean corpuscular volume, RBC 86 fL red blood cell distribution width 13.7 % erythrocyte (RBC) count 5.16 10*6/mm3 hematocrit, blood 44 % hemoglobin, blood 15.4 g/dL platelet count 256 10*3/mm3 Clinical Lists Update: ER LABS - Urinalysis blood in urine (hemoglobin) by dipstick neg protein, urine, semiquantitative (dipstick) neg epithelial cells, urine rare /[LPF] hyaline casts, urine none /[LPF] bacteria, urine microscopy none RBC urine by microscopy none WBC urine on microscopy none {Cells}/[HPF] appearance, urine Clear Yellow urobilinogen, urine, semiquantitative (dipstick) normal specific gravity, urine 1.015 pH, urine, semiquantitative 5 nitrite, urine, semiquantitative neg glucose, urine, semiquantitative neg bilirubin, urine neg ketones, urine, by test strip neg mucus on urinalysis neg Clinical Lists Update: Microalbumin - Urinalysis microalbumin, urine, semiquantitative 0.6 mg/dL Encounters Code Encounter Date Provider Facility CPT-16195 Ofc Vst, Est Level IV 15:58:20 CDT Yulia Cruz DO, FACP CPT-18163 Ofc Vst, Est Level IV 19:28:17 WATER CHEMIST Yulia Cruz DO, FACP CPT-28382 Ofc Vst, Est Level III 13:16:58 CDT Yulia Ny Cruz Yulia S Cruz, DO, FACP CPT-71523 Ofc Vst, Est Level IV 17:21:21 CDT Yulia Ny Del Rio Anthony, DO, FACP CPT-77467 Ofc Vst, Est Level III 15:17:17 CDT Yulia Ny Del Rio Anthony, DO, FACP CPT-20962 Ofc Vst, Est Level III 15:56:42 CDT Yulia Ny Del Rio Anthony, DO, FACP CPT-09013 Ofc Vst, Est Level IV 20:17:52 CDT Yulia Ny Del Rio Anthony, DO, FACP CPT-61933 Ofc Vst, Est Level IV 16:24:31 CDT Yuliamilagros Cruz [facility] CPT-52840 Ofc Vst, Est Level IV 19:42:41 WATER CHEMIST Yulia Ny Del Rio Anthony, DO, FACP CPT-64211 Ofc Vst, Est Level III 12:16:29 CDT Yulia Ny Del Rio Anthony, DO, FACP CPT-57921 Ofc Vst, Est Level III 14:15:44 WATER CHEMIST Yulia Del Rio Anthony, DO, FACP CPT-39984 Ofc Vst, Est Level II 13:59:22 WATER CHEMIST Yulia Ny Del Rio Anthony, DO, FACP CPT-50163 Ofc Vst, Est Level III 16:44:22 CDT Yuliamilagros Del Rio Anthony, DO, FACP CPT-27952 Ofc Vst, Est Level IV 15:56:20 CDT Yuliamilagros Alejandra Cruz [facility] CPT-66659 Ofc Vst, Est Level IV 15:37:15 CDT Yulia Ny Anthony [facility] CPT-09045 Ofc Vst, Est Level III 16:02:15 WATER CHEMIST Yuliamilagros Cruz Yulia S DO Anthony, FACP CPT-65172 Ofc Vst, Est Level IV 16:07:44 WATER CHEMIST [facility] OFFICE CPT-19646 Ofc Vst, Est Level III 15:08:39 WATER CHEMIST [facility] OFFICE CPT-12261 Ofc Vst, Est Level V 15:13:27 [facility]T [facility] DO, FACP CPT-01509 Ofc Vst, New Level IV 17:01:35 CDT [facility] Procedures Code Procedure Name Date Entry Date Standard Description CPT-13404 Preventive, Est, (40-64) 19:33:45 CDT CPT-78690 EKG w/ Interpretation 16:24:31 CDT CPT-16060 Preventive, Est, (40-64) 12:55:40 WATER CHEMIST CPT-61402 EKG w/ Interpretation 19:42:41 WATER CHEMIST CPT-65816 Preventive, Est, (40-64) 20:10:48 CDT
--- OUTSIDE RECORDS SUMMARY | 2017-04-25 18:11 | XMS REPORT | Clinical Summary ---
Author Author User, BRITT Macias [place] [facility] Address Unknown Phone Allergies, Adverse Reactions, [...] TABS 1-2 TABS PO QHS TIZANIDINE HCL 54224937260 Active Nohemi Swartz ZYRTEC 10 MG TAB 1 PO QD CETIRIZINE HCL Active Yulia Cruz KEFLEX 500 MG CAP 1 PO TID for 7 days CEPHALEXIN 11821418908 No Longer Active Yuliamilagros Cruz BYDUREON 2 MG SUSR 1 injection weekly EXENATIDE 20073840077 Active Nohemi Swartz TOPAMAX 25 MG TABS 1 PO BID TOPIRAMATE 89068837839 No Longer Active Yuila Cruz FIORINAL 325-50-40 MG CAP 1 PO TID prn ASPIRIN- CAFFEINE-BUTALBITAL 47045564005 No Longer Active Yulia Cruz FLUTICASONE PROPIONATE 50 MCG/ACT SUSP 2 Puffs Each Nostril Daily FLUTICASONE PROPIONATE 80622996222 Active Yulia Cruz METOPROLOL TARTRATE 25 MG TABS 1 PO BID METOPROLOL TARTRATE 77038544973 No Longer Active Yulia Cruz DINA ALLERGY 180 MG TABS 1 po daily FEXOFENADINE HCL 71489155669 No Longer Active Yulia Cruz DOXAZOSIN MESYLATE 4 MG TABS 1 PO QPM DOXAZOSIN MESYLATE 90115210213 Active Nohemi Swartz DEMADEX 20 MG TABS 1/2 PO daily TORSEMIDE 31573636901 No Longer Active Yulia Cruz TORSEMIDE 10 MG TABS 1 pO DAILY TORSEMIDE 12208104850 Active Nohemi Swartz [employer] TEST DISK Test BS BID DX: Diabetes GLUCOSE BLOOD 95746609157 Active Nohemi Swartz CATAPRES 0.1 MG TABS 1 PO BID CLONIDINE HCL 80968327182 No Longer Active Yulia Ny Cruz EPLERENONE 50 MG TABS 1 PO daily EPLERENONE 74659489868 No Longer Active Yulia Ny Cruz ALDACTONE 25 MG TABS 1 PO daily SPIRONOLACTONE 09071956437 Active Nohemi Swartz HYDROCHLOROTHIAZIDE 25 MG TAB 1 PO daily HYDROCHLOROTHIAZIDE 89086667970 No Longer Active Yulia Ny Cruz OMEPRAZOLE 20 MG CPDR 1 PO BID OMEPRAZOLE 56230473680 No Longer Active Yulia Ny Cruz CARAFATE 1 GM TABS 1 PO 30 minutes before meals and at bedtime SUCRALFATE 02430601573 No Longer Active Yulia Ny Cruz ALLOPURINOL 300 MG TABS 1 PO daily ALLOPURINOL 49114889035 No Longer Active Yulia Ny Cruz BENICAR 20 MG TABS 1 PO daily OLMESARTAN MEDOXOMIL 56067821281 No Longer Active Yulia Ny Cruz BENTYL 10 MG CAP 1 PO QID prn abdominal pain DICYCLOMINE HCL 92166540666 No Longer Active Yulia Ny Cruz VITAMIN D (ERGOCALCIFEROL) 16218 UNIT CAPS 1 PO every week ERGOCALCIFEROL 03799453504 Active Nohemi Swartz OCUFLOX 0.3 % SOLN 2 drops left ear BID for 5 days OFLOXACIN 82419638192 No Longer Active Yulia Ny Cruz KEFLEX 500 MG CAP 1 PO TID for 7 days CEPHALEXIN 30207602869 No Longer Active Yulia Ny Cruz OMEPRAZOLE 20 MG CPDR 1 PO BID OMEPRAZOLE 47205817164 No Longer Active Yulia Ny Cruz PREDNISONE 20 MG TAB 2 pills at once for 2 days then 1 pill daily for 2 days PREDNISONE 65648010664 No Longer Active Yulia Ny Cruz NORCO 10-325 MG TABS 1 PO TID prn HYDROCODONE-ACETAMINOPHEN 70471404651 Active Yulia Cruz ULTRAM 50 MG TABS 1 PO TID prn pain TRAMADOL HCL 50553025964 No Longer Active Yulia Alejandra Anthony K-DUR 10 MEQ TAB CR 1 PO BID prn POTASSIUM CHLORIDE No Longer Active Yulia Roachner LASIX 20 MG TAB 1 PO daily prn FUROSEMIDE 33465038370 No Longer Active Yulia Roachner EPIPEN 2-AYAH 0.3 MG/0.3ML AYIDN as directed EPINEPHRINE 48853607585 Active Yulia Roachner NORVASC 10 MG TABS 1 PO daily AMLODIPINE BESYLATE 10066192274 Active Nohemi Mcelroytis CLARITIN 10 MG TAB 1 PO daily LORATADINE 67754315973 No Longer Active Yulia Alejandra Anthony Immunizations [...] Description Clinical Lists Update: CBC,CMP,Chol,Trig,HgA1c,Microalbumin - Chemistry sodium, serum 139 mmol/L chloride, serum 107 mmol/L cholesterol, serum 151 mg/dL carbon dioxide, venous blood 21 mmol/L creatinine, serum 0.9 mg/dL Estimated Glomerular Filtration Rate (calc) >60 mL/min/1.73m2 glucose, plasma fasting 164 mg/dL hemoglobin A1C, blood, as % of total hemoglobin 7.1 % albumin, serum 4.3 g/dL alkaline phosphatase, serum 55 U/L bilirubin, serum, total 0.7 mg/dL urea nitrogen, blood 16 mg/dL calcium, serum 9.2 mg/dL triglyceride, serum, fasting 88 mg/dL potassium, serum 4.1 mmol/L protein, total, serum 6.9 g/dL aspartate aminotransferase (SGOT), serum 19 U/L alanine aminotransferase (SGPT), serum 41 U/L Clinical Lists Update: CBC,CMP,Chol,Trig,HgA1c,Microalbumin - Hematology leukocyte count, blood 6.3 10*3/mm3 hematocrit, blood 44.0 % erythrocyte (RBC) count 4.92 10*6/mm3 hemoglobin, blood 14.6 g/dL platelet count 216 10*3/mm3 mean corpuscular volume, RBC 89 fL red blood cell distribution width 13.8 % Clinical Lists Update: CMP,FLP,HGA1C - Chemistry Estimated Glomerular Filtration Rate (calc) >60 mL/min/1.73m2 creatinine, serum 0.8 mg/dL carbon dioxide, venous blood 22 mmol/L cholesterol, serum 145 mg/dL cholesterol/HDL ratio, serum, percent 3.9 chloride, serum 108 mmol/L sodium, serum 141 mmol/L alanine aminotransferase (SGPT), serum 28 U/L LDL cholesterol, serum 88 mg/dL aspartate aminotransferase (SGOT), serum 14 U/L protein, total, serum 6.7 g/dL potassium, serum 4.1 mmol/L triglyceride, serum, fasting 101 mg/dL calcium, serum 9.3 mg/dL urea nitrogen, blood 19 mg/dL bilirubin, serum, total 0.6 mg/dL alkaline phosphatase, serum 51 U/L albumin, serum 4.3 g/dL hemoglobin A1C, blood, as % of total hemoglobin 7.3 % HDL cholesterol, serum 37 mg/dL glucose, plasma fasting 142 mg/dL Clinical Lists Update: CMP,FLP,TSH,HgA1c - Chemistry potassium, serum 3.6 mmol/L glucose, plasma fasting 155 mg/dL sodium, serum 141 mmol/L urea nitrogen, blood 11 mg/dL protein, total, serum 6.6 g/dL calcium, serum 8.8 mg/dL aspartate aminotransferase (SGOT), serum 16 U/L carbon dioxide, venous blood 22 mmol/L cholesterol, serum 152 mg/dL alkaline phosphatase, serum 55 U/L cholesterol/HDL ratio, serum, percent 3.8 albumin, serum 4.2 g/dL alanine aminotransferase (SGPT), serum 38 U/L LDL cholesterol, serum 99 mg/dL thyroid stimulating hormone, serum 2.21 u[iU]/mL hemoglobin A1C, blood, as % of total hemoglobin 7.7 % creatinine, serum 0.8 mg/dL chloride, serum 108 mmol/L HDL cholesterol, serum 40 mg/dL Estimated Glomerular Filtration Rate (calc) >50 mL/min/1.73m2 triglyceride, serum, fasting 66 mg/dL bilirubin, serum, total 0.4 mg/dL Clinical Lists Update: ER LABS - Chemistry chloride, serum 105 mmol/L carbon dioxide, venous blood 23 mmol/L creatinine, serum 0.87 mg/dL Estimated Glomerular Filtration Rate (calc) >60 mL/min/1.73m2 glucose, plasma fasting 169 mg/dL albumin, serum 4.6 g/dL alkaline phosphatase, serum 53 U/L bilirubin, serum, total 0.7 mg/dL urea nitrogen, blood 16 mg/dL calcium, serum 9.2 mg/dL potassium, serum 3.9 mmol/L protein, total, serum 7.5 g/dL aspartate aminotransferase (SGOT), serum 20 U/L alanine aminotransferase (SGPT), serum 34 U/L sodium, serum 140 mmol/L Clinical Lists Update: ER LABS - Hematology hemoglobin, blood 15.4 g/dL erythrocyte (RBC) count 5.16 10*6/mm3 leukocyte count, blood 7.0 10*3/mm3 platelet count 256 10*3/mm3 hematocrit, blood 44 % red blood cell distribution width 13.7 % mean corpuscular volume, RBC 86 fL Clinical Lists Update: ER LABS - Urinalysis blood in urine (hemoglobin) by dipstick neg mucus on urinalysis neg WBC urine on microscopy none {Cells}/[HPF] urobilinogen, urine, semiquantitative (dipstick) normal nitrite, urine, semiquantitative neg pH, urine, semiquantitative 5 protein, urine, semiquantitative (dipstick) neg RBC urine by microscopy none bilirubin, urine neg bacteria, urine microscopy none appearance, urine Clear Yellow ketones, urine, by test strip neg hyaline casts, urine none /[LPF] specific gravity, urine 1.015 epithelial cells, urine rare /[LPF] glucose, urine, semiquantitative neg Clinical Lists Update: Microalbumin - Urinalysis microalbumin, urine, semiquantitative 0.6 mg/dL Encounters Code Encounter Date Provider Facility CPT-65181 Ofc Vst, Est Level IV 19:28:17 WOOD PATTERNMAKER APPRENTICE Yulia Cruz DO, FACP CPT-17077 Ofc Vst, Est Level III 13:16:58 CDT Yulia Bender S Anthony, DO, FACP CPT-85670 Ofc Vst, Est Level IV 17:21:21 CDT Yulia Ny Del Rio Anthony, DO, FACP CPT-59230 Ofc Vst, Est Level III 15:17:17 CDT Yulia Ny Del Rio Anthony, DO, FACP CPT-94436 Ofc Vst, Est Level III 15:56:42 CDT Yulia Ny Del Rio Anthony, DO, FACP CPT-47949 Ofc Vst, Est Level IV 20:17:52 CDT Yulia Ny Del Rio Anthony, DO, FACP CPT-18702 Ofc Vst, Est Level IV 16:24:31 CDT Yuliamilagros Cruz [facility] CPT-11761 Ofc Vst, Est Level IV 19:42:41 WOOD PATTERNMAKER APPRENTICE Yuliamilagros Del Rio Anthony, DO, FACP CPT-42730 Ofc Vst, Est Level III 12:16:29 CDT Yuliamilagros Del Rio Anthony, DO, FACP CPT-32312 Ofc Vst, Est Level III 14:15:44 WOOD PATTERNMAKER APPRENTICE Yulia Del Rio Anthony, DO, FACP CPT-51426 Ofc Vst, Est Level II 13:59:22 WOOD PATTERNMAKER APPRENTICE Yuliamilagros Del Rio Anthony, DO, FACP CPT-23290 Ofc Vst, Est Level III 16:44:22 CDT Yuliamilagros Del Rio Anthony, DO, FACP CPT-33945 Ofc Vst, Est Level IV 15:56:20 CDT Yuliamilagros Cruz [facility] CPT-00261 Ofc Vst, Est Level IV 15:37:15 CDT Yulia Ny Cruz [facility] CPT-31850 Ofc Vst, Est Level III 16:02:15 WOOD PATTERNMAKER APPRENTICE Yulia Ny Treadwellmilagros Cruz DO, FACP CPT-72514 Ofc Vst, Est Level IV 16:07:44 WOOD PATTERNMAKER APPRENTICE [facility] CPT-67533 Ofc Vst, Est Level III 15:08:39 WOOD PATTERNMAKER APPRENTICE [facility] CPT-33794 Ofc Vst, Est Level V 15:13:27 CDT [facility] Ny Cruz Yulia Cruz DO, FACP CPT-81549 Ofc Vst, New Level IV 17:01:35 CDT [facility] Procedures Code Procedure Name Date Entry Date Standard Description CPT-00813 Preventive, Est, (40-64) 19:33:45 CDT CPT-03156 EKG w/ Interpretation 16:24:31 CDT CPT-92484 Preventive, Est, (40-64) 12:55:40 WOOD PATTERNMAKER APPRENTICE CPT-08724 EKG w/ Interpretation 19:42:41 WOOD PATTERNMAKER APPRENTICE CPT-35960 Preventive, Est, (40-64) 20:10:48 CDT
--- OUTSIDE RECORDS SUMMARY | 2017-04-25 18:11 | XMS REPORT | Clinical Summary ---
Author Author User, BRITT Macias [place] [facility] Address Unknown Phone Allergies, Adverse Reactions, [...] dyspnea and respiratory abnormality CONJUNCTIVITIS 372.30 Resolved uYlia Cruz Conjunctivitis, unspecified ELECTROCARDIOGRAM, ABNORMAL 794.31 Resolved Yulia Cruz Nonspecific abnormal electrocardiogram [ECG] [EKG] WEIGHT GAIN, ABNORMAL 783.1 Active Yulia Cruz Abnormal weight gain HEALTH SCREENING V70.0 Resolved Yulia Cruz Routine general medical examination at a health care facility BRADYCARDIA 427.89 Active Yulia Cruz Other specified cardiac dysrhythmias HEADACHE 784.0 Active Yulai Cruz Headache CELLULITIS 682.9 Resolved Yulia Cruz Cellulitis and abscess of unspecified sites HEALTH SCREENING V70.0 Active Yulia Cruz Routine general medical examination at a health care facility Medication List Medication Instructions Start Date Stop Date Generic Name NDC Status Provider Patient Instruction TIZANIDINE HCL 2 MG TABS 1-2 TABS PO QHS TIZANIDINE HCL 34997562401 Active Nohemi Swartz ZYRTEC 10 MG TAB 1 PO QD CETIRIZINE HCL Active Yulia Cruz KEFLEX 500 MG CAP 1 PO TID for 7 days CEPHALEXIN 58043554619 No Longer Active Yuliamilagros Cruz BYDUREON 2 MG SUSR 1 injection weekly EXENATIDE 23810386480 Active Nohemi Swartz TOPAMAX 25 MG TABS 1 PO BID TOPIRAMATE 18819580313 No Longer Active Yulia Cruz FIORINAL 325-50-40 MG CAP 1 PO TID prn ASPIRIN- CAFFEINE-BUTALBITAL 44348363818 No Longer Active Yulia Cruz FLUTICASONE PROPIONATE 50 MCG/ACT SUSP 2 Puffs Each Nostril Daily FLUTICASONE PROPIONATE 73523180155 Active Yulia Cruz METOPROLOL TARTRATE 25 MG TABS 1 PO BID METOPROLOL TARTRATE 77580793817 No Longer Active Yulia Cruz DINA ALLERGY 180 MG TABS 1 po daily FEXOFENADINE HCL 67309600451 No Longer Active Yulia Cruz DOXAZOSIN MESYLATE 4 MG TABS 1 PO QPM DOXAZOSIN MESYLATE 53717116529 Active Nohemi Swartz DEMADEX 20 MG TABS 1/2 PO daily TORSEMIDE 92881944278 No Longer Active Yulia Cruz TORSEMIDE 10 MG TABS 1 pO DAILY TORSEMIDE 06385675102 Active Nohemi Swartz [employer] TEST DISK Test BS BID DX: Diabetes GLUCOSE BLOOD 82936263505 Active Nohemi Swartz CATAPRES 0.1 MG TABS 1 PO BID CLONIDINE HCL 89222551464 No Longer Active Yulia Ny Cruz EPLERENONE 50 MG TABS 1 PO daily EPLERENONE 21758447061 No Longer Active Yulia Ny Cruz ALDACTONE 25 MG TABS 1 PO daily SPIRONOLACTONE 09269851474 Active Nohemi Swartz HYDROCHLOROTHIAZIDE 25 MG TAB 1 PO daily HYDROCHLOROTHIAZIDE 99303256810 No Longer Active Yulia Ny Cruz OMEPRAZOLE 20 MG CPDR 1 PO BID OMEPRAZOLE 56627380238 No Longer Active Yulia Ny Cruz CARAFATE 1 GM TABS 1 PO 30 minutes before meals and at bedtime SUCRALFATE 91666882293 No Longer Active Yulia Ny Cruz ALLOPURINOL 300 MG TABS 1 PO daily ALLOPURINOL 80985782563 No Longer Active Yulia Ny Cruz BENICAR 20 MG TABS 1 PO daily OLMESARTAN MEDOXOMIL 30038215335 No Longer Active Yulia Ny Cruz BENTYL 10 MG CAP 1 PO QID prn abdominal pain DICYCLOMINE HCL 84256226166 No Longer Active Yulia Ny Cruz VITAMIN D (ERGOCALCIFEROL) 08896 UNIT CAPS 1 PO every week ERGOCALCIFEROL 83385641771 Active Nohemi Swartz OCUFLOX 0.3 % SOLN 2 drops left ear BID for 5 days OFLOXACIN 69368268280 No Longer Active Yuila Ny Cruz KEFLEX 500 MG CAP 1 PO TID for 7 days CEPHALEXIN 15593844697 No Longer Active Yulia Ny Cruz OMEPRAZOLE 20 MG CPDR 1 PO BID OMEPRAZOLE 99955254895 No Longer Active Yulia Ny Cruz PREDNISONE 20 MG TAB 2 pills at once for 2 days then 1 pill daily for 2 days PREDNISONE 39165978682 No Longer Active Yulia Ny Cruz NORCO 10-325 MG TABS 1 PO TID prn HYDROCODONE-ACETAMINOPHEN 76808677774 Active Yulia Cruz ULTRAM 50 MG TABS 1 PO TID prn pain TRAMADOL HCL 78375846298 No Longer Active Yulia Alejandra Anthony K-DUR 10 MEQ TAB CR 1 PO BID prn POTASSIUM CHLORIDE No Longer Active Yulia Roachner LASIX 20 MG TAB 1 PO daily prn FUROSEMIDE 79928416902 No Longer Active Yulia Roachner EPIPEN 2-AYAH 0.3 MG/0.3ML AYDIN as directed EPINEPHRINE 54994016276 Active Yulia Roachner NORVASC 10 MG TABS 1 PO daily AMLODIPINE BESYLATE 04059674254 Active Nohemi Mcelroytis CLARITIN 10 MG TAB 1 PO daily LORATADINE 33383233852 No Longer Active Yulia Alejandra Anthony Immunizations [...] mg/dL Encounters Code Encounter Date Provider Facility CPT-53455 Ofc Vst, Est Level IV 19:28:17 FINANCIAL SYSTEMS ANALYST Yulia Cruz DO, FACP CPT-07810 Ofc Vst, Est Level III 13:16:58 CDT Yulia Bender S Anthony, DO, FACP CPT-25467 Ofc Vst, Est Level IV 17:21:21 CDT Yulia Ny Del Rio Anthony, DO, FACP CPT-34902 Ofc Vst, Est Level III 15:17:17 CDT Yulia Ny Del Rio Anthony, DO, FACP CPT-12872 Ofc Vst, Est Level III 15:56:42 CDT Yulia Ny Del Rio Anthony, DO, FACP CPT-95716 Ofc Vst, Est Level IV 20:17:52 CDT Yulia Ny Del Rio Anthony, DO, FACP CPT-71772 Ofc Vst, Est Level IV 16:24:31 CDT Yuliamilagros Cruz [facility] CPT-28613 Ofc Vst, Est Level IV 19:42:41 FINANCIAL SYSTEMS ANALYST Yuliamilagros Del Rio Anthony, DO, FACP CPT-12482 Ofc Vst, Est Level III 12:16:29 CDT Yuliamilagros Del Rio Anthony, DO, FACP CPT-96272 Ofc Vst, Est Level III 14:15:44 FINANCIAL SYSTEMS ANALYST Yulia Del Rio Anthony, DO, FACP CPT-57822 Ofc Vst, Est Level II 13:59:22 FINANCIAL SYSTEMS ANALYST Yuliamilagros Del Rio Anthony, DO, FACP CPT-30879 Ofc Vst, Est Level III 16:44:22 CDT Yuliamilagros Del Rio Anthony, DO, FACP CPT-44017 Ofc Vst, Est Level IV 15:56:20 CDT Yuliamilagros Cruz [facility] CPT-73374 Ofc Vst, Est Level IV 15:37:15 CDT Yulia Ny Cruz [facility] CPT-17178 Ofc Vst, Est Level III 16:02:15 FINANCIAL SYSTEMS ANALYST Yulia Ny Treadwellmilagros Cruz DO, FACP CPT-39082 Ofc Vst, Est Level IV 16:07:44 FINANCIAL SYSTEMS ANALYST [facility]ICE CPT-53978 Ofc Vst, Est Level III 15:08:39 FINANCIAL SYSTEMS ANALYST [facility] OFFICE CPT-27887 Ofc Vst, Est Level V 15:13:27 CDT [facility] Ny Cruz Yulia Cruz DO, FACP CPT-15548 Ofc Vst, New Level IV 17:01:35 CDT [facility] Ny [facility] Procedures Code Procedure Name Date Entry Date Standard Description CPT-09068 Preventive, Est, (40-64) 19:33:45 CDT CPT-48775 EKG w/ Interpretation 16:24:31 CDT CPT-26005 Preventive, Est, (40-64) 12:55:40 FINANCIAL SYSTEMS ANALYST CPT-23852 EKG w/ Interpretation 19:42:41 FINANCIAL SYSTEMS ANALYST CPT-23171 Preventive, Est, (40-64) 20:10:48 CDT
--- OUTSIDE RECORDS SUMMARY | 2017-04-25 18:12 | XMS REPORT | CCD ---
Author Author NANDA SEQUEIRA NISHIBurak Organization Unknown Address [address] [place], [place] [address] Care Team Providers Care Skates Operator Name Role Phone LAGUNA, LUNA DO Attphys LAGUNA, LUNA DO Prisurg Vital Signs Unknown or Not Available. Allergies Allergy Code Allergy Type Reaction Status XYLOCAINE EP YOSSI 1% 0 Drug allergy Active PENICILLIN 27692 Drug allergy Active LIDOCAINE 6387 Drug allergy Active Procedures Procedure Code Procedure Type Date HOLTER MONITOR UP TO [address] 2015 CX CHEST [address] 11/02/2015 INFLUENZA A & B 401081544 SNOMED CT 11/02/2015 TROPONIN-I ADV 577533524 SNOMED CT 11/02/2015 COMPREHENSIVE METABOLIC PANEL 124225913 SNOMED CT 2015 CBC W/ AUTO DIFF (RFLX MAN DIFF IF IND) 2336818 SNOMED CT 11/02/2015 ^CBC W/AUTO DIFF 5340678 SNOMED CT 11/02/2015 History of Immunizations Unknown or Not Available. Problems Unknown or Not Available. Results COMPREHENSIVE METABOLIC PANEL - Collect Date/Time: 11/02/2015 09:05 Test Name Code Test Result Test Units Test Ref Range GLUCOSE 2345-7 213 MG/DL L=70 H=100 SODIUM 2951-2 138 MEQ/L L=135 H=148 POTASSIUM 2823-3 3.9 MEQ/L L=3.5 H=5.3 CHLORIDE 2075-0 105 MEQ/L L=96 H=110 CO2 2028-9 21 MEQ/L L=22 H=29 BUN 3094-0 16 MG/DL L=8 H=22 CREATININE 2160-0 1.0 MG/DL L=0.6 H=1.6 SGOT/AST 1920-8 25 IU/L L=10 H=40 SGPT/ALT 1742-6 54 IU/L L=8 H=54 ALK PHOS 6768-6 55 IU/L L=35 H=115 TOTAL PROTEIN 2885-2 6.7 G/DL L=5.5 H=8.5 ALBUMIN 1751-7 4.5 G/DL L=3.1 H=5.4 TOTAL BILI 1975-2 0.7 MG/DL L=0.0 H=1.5 CALCIUM 21661-2 9.1 MG/DL L=8.2 H=10.6 AGE 60 yrs GFR NonAA 76 GFR AA 92 eGFR >60 N/A eGFR AA* >60 N/A CBC W/ AUTO DIFF (RFLX MAN DIFF IF IND) - Collect Date/Time: 11/02/2015 09:05 Test Name Code Test Result Test Units Test Ref Range WBC 36124-5 6.1 TH/CMM L=4.5 H=10.8 RBC 789-8 4.86 ML/CMM L=4.70 H=6.10 HGB 718-7 14.7 G/DL L=14.0 H=18.0 HCT 4544-3 42.8 % L=42.0 H=52.0 MCV 88 FL L=81 H=99 MCH 30.2 PG L=27.0 H=33.0 MCHC 34.3 G/DL L=31.0 H=36.0 RDW SD 43 FL L=36 H=50 RDW CV 13.4 % L=0.0 H=14.8 MPV 9.3 FL L=9.3 H=12.5 PLT 777-3 216 TH/CMM L=130 H=440 NRBC# 0.00 TH/CMM L=0.00 H=0.00 NRBC% 0.0 /100WBC L=0.0 H=2.0 %NEUT 68.5 % %LYMP 23.1 % %MONO 5.7 % %EOS 2.4 % %BASO 0.3 % #NEUT 4.20 TH/CMM L=2.10 H=8.20 #LYMP 1.42 TH/CMM L=0.90 H=5.20 #MONO 0.35 TH/CMM L=0.16 H=1.00 #EOS 0.15 TH/CMM L=0.00 H=0.80 #BASO 0.02 TH/CMM L=0.00 H=0.20 MANUAL DIFF NOT IND N/A INFLUENZA A & B - Collect Date/Time: 11/02/2015 09:05 Test Name Code Test Result Test Units Test Ref Range INFLUENZA A & B 6437-8 NO INFLUENZA A OR B DETECTED N/A TROPONIN-I ADV - Collect Date/Time: 11/02/2015 09:05 Test Name Code Test Result Test Units [place] [address]-2 <0.04 ng/mL L=0.04 H= 0.40 Active Medications Unknown or Not Available. Medications Administered During Visit Unknown or Not Available. Encounters Encounter Diagnosis Diagnosis Code Start Date Palpitations 23256821 11/02/2015 Social History Smoking Status Code Start Date End Date Never smoker [id number] Patient Decision Aids Unknown or Not Available. Discharge Instructions You were admitted to [facility] on 11/02/2015 08:42 with a principal diagnosis of Palpitations You had the following tests done: CBC W/ AUTO DIFF (RFLX MAN DIFF IF IND) COMPREHENSIVE METABOLIC PANEL INFLUENZA A & B TROPONIN-I ADV You were discharged from [facility] on 11/02/2015 11:11 Should you have any questions prior to discharge, please contact a member of your healthcare team. If you have left the hospital and have any questions, please contact your primary care physician. Chief Complaint and Reason For Visit Chief Complaint Date of Onset PALPITATIONS WEAKNESS Function Status Unknown or Not Available. Plan of Care Unknown or Not Available. Referral/Transition of Care Unknown or Not Available.
--- OUTSIDE RECORDS SUMMARY | 2017-04-25 18:12 | XMS REPORT | Clinical Summary ---
Author Author User, BRITT Organization [place] [facility] Address Unknown Phone Allergies, Adverse Reactions, [...] TABS 1-2 TABS PO QHS TIZANIDINE HCL 75873941354 Active Nohemi Swartz ZYRTEC 10 MG TAB 1 PO QD CETIRIZINE HCL Active Yuliamilagros Cruz KEFLEX 500 MG CAP 1 PO TID for 7 days CEPHALEXIN 50747016008 No Longer Active Yulia Ny Cruz BYDUREON 2 MG SUSR 1 injection weekly EXENATIDE 64933074232 Active Nohemi Swartz TOPAMAX 25 MG TABS 1 PO BID TOPIRAMATE 06404193368 No Longer Active Yuliamilagros Cruz FIORINAL 325-50-40 MG CAP 1 PO TID prn ASPIRIN- CAFFEINE-BUTALBITAL 97793729864 No Longer Active Yuliamilagros Cruz FLUTICASONE PROPIONATE 50 MCG/ACT SUSP 2 Puffs Each Nostril Daily FLUTICASONE PROPIONATE 18968864582 Active Yuliamilagros Cruz METOPROLOL TARTRATE 25 MG TABS 1 PO BID METOPROLOL TARTRATE 47689964594 No Longer Active Yulia Cruz DINA ALLERGY 180 MG TABS 1 po daily FEXOFENADINE HCL 90628687215 No Longer Active Yuliamilagros Cruz DOXAZOSIN MESYLATE 4 MG TABS 1 PO QPM DOXAZOSIN MESYLATE 59303579045 Active Nohemi Swartz DEMADEX 20 MG TABS 1/2 PO daily TORSEMIDE 12978953350 No Longer Active Yuliamilagros Cruz TORSEMIDE 10 MG TABS 1 pO DAILY TORSEMIDE 32633826482 Active Nohemi Swartz [employer] TEST [employer]K Test BS BID DX: Diabetes GLUCOSE BLOOD 81622144130 Active Nohemi Swartz CATAPRES 0.1 MG TABS 1 PO BID CLONIDINE HCL 69783223768 No Longer Active Yulia Ny Cruz EPLERENONE 50 MG TABS 1 PO daily EPLERENONE 12759776972 No Longer Active Yulia Ny Cruz ALDACTONE 25 MG TABS 1 PO daily SPIRONOLACTONE 27547100807 Active Nohemi Swartz HYDROCHLOROTHIAZIDE 25 MG TAB 1 PO daily HYDROCHLOROTHIAZIDE 30864328914 No Longer Active Yulia Ny Cruz OMEPRAZOLE 20 MG CPDR 1 PO BID OMEPRAZOLE 14373246810 No Longer Active Yulia Ny Cruz CARAFATE 1 GM TABS 1 PO 30 minutes before meals and at bedtime SUCRALFATE 47282782747 No Longer Active Yulia Ny Cruz ALLOPURINOL 300 MG TABS 1 PO daily ALLOPURINOL 70456066228 No Longer Active Yulia Ny Cruz BENICAR 20 MG TABS 1 PO daily OLMESARTAN MEDOXOMIL 04935887513 No Longer Active Yulia Ny Cruz BENTYL 10 MG CAP 1 PO QID prn abdominal pain DICYCLOMINE HCL 35165196590 No Longer Active Yulia Ny Cruz VITAMIN D (ERGOCALCIFEROL) 42154 UNIT CAPS 1 PO every week ERGOCALCIFEROL 19036151827 Active Nohemijanet Swartz OCUFLOX 0.3 % SOLN 2 drops left ear BID for 5 days OFLOXACIN 35384740952 No Longer Active Yulia Ny Cruz KEFLEX 500 MG CAP 1 PO TID for 7 days CEPHALEXIN 46111480598 No Longer Active Yulia Ny Cruz OMEPRAZOLE 20 MG CPDR 1 PO BID OMEPRAZOLE 77199969865 No Longer Active Yulia Ny Cruz PREDNISONE 20 MG TAB 2 pills at once for 2 days then 1 pill daily for 2 days PREDNISONE 14524927663 No Longer Active Yulia Ny Cruz NORCO 10-325 MG TABS 1 PO TID prn HYDROCODONE-ACETAMINOPHEN 81928380364 Active Yulia Alejandra Anthony ULTRAM 50 MG TABS 1 PO TID prn pain TRAMADOL HCL 50909742726 No Longer Active Yulia Cruz K-DUR 10 MEQ TAB CR 1 PO BID prn POTASSIUM CHLORIDE No Longer Active Yuliamilagros Cruz LASIX 20 MG TAB 1 PO daily prn FUROSEMIDE 60319592648 No Longer Active Yuliamilagros Cruz EPIPEN 2-AYAH 0.3 MG/0.3ML AYDIN as directed EPINEPHRINE 70439132931 Active Yulia Ny Anthony NORVASC 10 MG TABS 1 PO daily AMLODIPINE BESYLATE 45951216078 Active Nohemi Swartz CLARITIN 10 MG TAB 1 PO daily LORATADINE 22135362674 No Longer Active Yulia Cruz Immunizations Vaccine [...] mg/dL Encounters Code Encounter Date Provider Facility CPT-96536 Ofc Vst, Est Level IV 19:28:17 [employer]SEMBLER INSUL[employer] Yulia Cruz DO, FACP CPT-28264 Ofc Vst, Est Level III 13:16:58 CDT Yulia Ny Cruz Yulia S Cruz, DO, FACP CPT-28933 Ofc Vst, Est Level IV 17:21:21 CDT Yulia Ny Del [place] Anthony, DO, FACP CPT-77521 Ofc Vst, Est Level III 15:17:17 CDT Yulia Ny [place] Anthony, DO, FACP CPT-39046 Ofc Vst, Est Level III 15:56:42 CDT Yulia Ny [place] Anthony, DO, FACP CPT-80609 Ofc Vst, Est Level IV 20:17:52 CDT Yulia Ny [place] Anthony, DO, FACP CPT-52685 Ofc Vst, Est Level IV 16:24:31 CDT Yuliamilagros Cruz [facility] CPT-42452 Ofc Vst, Est Level IV 19:42:41 [employer] INS[employer] Yuliamilagros Del Rio Anthony, DO, FACP CPT-54326 Ofc Vst, Est Level III 12:16:29 CDT Yulia Ny Del Rio Anthony, DO, FACP CPT-75893 Ofc Vst, Est Level III 14:15:44 [employer]SEM[employer] INS[employer] Yulia Del Rio Anthony, DO, FACP CPT-01169 Ofc Vst, Est Level II 13:59:22 [employer]SEM[employer]ER INSUL[employer] Yuliamilagros Del Rio Anthony, DO, FACP CPT-41511 Ofc Vst, Est Level III 16:44:22 CDT Yuliamilagros Del Rio Anthony, DO, FACP CPT-09383 Ofc Vst, Est Level IV 15:56:20 CDT Yuliamilagros Cruz [facility] CPT-41767 Ofc Vst, Est Level IV 15:37:15 CDT Yuliamilagros Alejandra Cruz [facility] CPT-59789 Ofc Vst, Est Level III 16:02:15 [employer]SEMBLER INSUL[employer] Yulia Ny Cruz Yulia Cruz DO, FACP CPT-83446 Ofc Vst, Est Level IV 16:07:44 ASSEMBLER INSULATOR [facility] CPT-19716 Ofc Vst, Est Level III 15:08:39 ASSEMBLER INSULATOR [facility] CPT-52522 Ofc Vst, Est Level V 15:13:27 CDT [facility] Cruz Yulia Cruz DO, FACP CPT-23633 Ofc Vst, New Level IV 17:01:35 CDT [facility] Procedures Code Procedure Name Date Entry Date Standard Description CPT-74381 Preventive, Est, (40-64) 19:33:45 CDT CPT-07169 EKG w/ Interpretation 16:24:31 CDT CPT-32054 Preventive, Est, (40-64) 12:55:40 ASSEMBLER INSUL[employer] CPT-30360 EKG w/ Interpretation 19:42:41 ASSEMBLER INSULATOR CPT-60253 Preventive, Est, (40-64) 20:10:48 CDT
--- OUTSIDE RECORDS SUMMARY | 2017-04-25 18:13 | XMS REPORT | Clinical Summary ---
Author Author User, BRITT Macias [place] [facility] Address Unknown Phone Allergies, Adverse Reactions, [...] TABS 1-2 TABS PO QHS TIZANIDINE HCL 62396358191 Active Nohemi Swartz ZYRTEC 10 MG TAB 1 PO QD CETIRIZINE HCL Active Yuliamilagros Cruz KEFLEX 500 MG CAP 1 PO TID for 7 days CEPHALEXIN 33603542641 No Longer Active Yulia Ny Cruz BYDUREON 2 MG SUSR 1 injection weekly EXENATIDE 17182198546 Active Nohemi Swartz TOPAMAX 25 MG TABS 1 PO BID TOPIRAMATE 01836248819 No Longer Active Yuliamilagros Cruz FIORINAL 325-50-40 MG CAP 1 PO TID prn ASPIRIN- CAFFEINE-BUTALBITAL 88556325639 No Longer Active Yuliamilagros Cruz FLUTICASONE PROPIONATE 50 MCG/ACT SUSP 2 Puffs Each Nostril Daily FLUTICASONE PROPIONATE 09262585980 Active Yulia Cruz METOPROLOL TARTRATE 25 MG TABS 1 PO BID METOPROLOL TARTRATE 36231355712 No Longer Active Yulia Cruz DINA ALLERGY 180 MG TABS 1 po daily FEXOFENADINE HCL 12920004504 No Longer Active Yulia Cruz DOXAZOSIN MESYLATE 4 MG TABS 1 PO QPM DOXAZOSIN MESYLATE 48804410465 Active Nohemi Swartz DEMADEX 20 MG TABS 1/2 PO daily TORSEMIDE 30831230233 No Longer Active Yuliamilagros Cruz TORSEMIDE 10 MG TABS 1 pO DAILY TORSEMIDE 74830444031 Active Nohemi Swartz [employer] TEST DISK Test BS BID DX: Diabetes GLUCOSE BLOOD 89175771295 Active Nohemi Swartz CATAPRES 0.1 MG TABS 1 PO BID CLONIDINE HCL 47601871939 No Longer Active Yulia Ny Cruz EPLERENONE 50 MG TABS 1 PO daily EPLERENONE 26911101318 No Longer Active Yulia Ny Cruz ALDACTONE 25 MG TABS 1 PO daily SPIRONOLACTONE 04673959595 Active Nohemi Swartz HYDROCHLOROTHIAZIDE 25 MG TAB 1 PO daily HYDROCHLOROTHIAZIDE 80451738293 No Longer Active Yulia Ny Cruz OMEPRAZOLE 20 MG CPDR 1 PO BID OMEPRAZOLE 37098938885 No Longer Active Yulia Ny Cruz CARAFATE 1 GM TABS 1 PO 30 minutes before meals and at bedtime SUCRALFATE 20135496277 No Longer Active Yulia Ny Cruz ALLOPURINOL 300 MG TABS 1 PO daily ALLOPURINOL 27544510541 No Longer Active Yulia Ny Cruz BENICAR 20 MG TABS 1 PO daily OLMESARTAN MEDOXOMIL 00519868388 No Longer Active Yulia Ny Cruz BENTYL 10 MG CAP 1 PO QID prn abdominal pain DICYCLOMINE HCL 51574321276 No Longer Active Yulia Ny Cruz VITAMIN D (ERGOCALCIFEROL) 32230 UNIT CAPS 1 PO every week ERGOCALCIFEROL 27701657684 Active Nohemi Swartz OCUFLOX 0.3 % SOLN 2 drops left ear BID for 5 days OFLOXACIN 70695017008 No Longer Active Yulia Ny Cruz KEFLEX 500 MG CAP 1 PO TID for 7 days CEPHALEXIN 71578943519 No Longer Active Yulia Ny Cruz OMEPRAZOLE 20 MG CPDR 1 PO BID OMEPRAZOLE 13257541625 No Longer Active Yulia Ny Cruz PREDNISONE 20 MG TAB 2 pills at once for 2 days then 1 pill daily for 2 days PREDNISONE 65304621308 No Longer Active Yulia Ny Roachner NORCO 10-325 MG TABS 1 PO TID prn HYDROCODONE-ACETAMINOPHEN 98441914884 Active Yulia Alejandra Cruz ULTRAM 50 MG TABS 1 PO TID prn pain TRAMADOL HCL 98636862555 No Longer Active Yulia Jaqueze Anthony K-DUR 10 MEQ TAB CR 1 PO BID prn POTASSIUM CHLORIDE No Longer Active Yuliamilagros Jaqueze Anthony LASIX 20 MG TAB 1 PO daily prn FUROSEMIDE 53735229897 No Longer Active Yuliamilagros Jaqueze Anthony EPIPEN 2-AYAH 0.3 MG/0.3ML AYDIN as directed EPINEPHRINE 54249504221 Active Yulia Alejandra Anthony NORVASC 10 MG TABS 1 PO daily AMLODIPINE BESYLATE 29056018421 Active Nohemi Swartz CLARITIN 10 MG TAB 1 PO daily LORATADINE 81837413082 No Longer Active Yulia Jaqueze Anthony Immunizations Vaccine Administration Date Value Standard [...] Description Clinical Lists Update: CBC,CMP,Chol,Trig,HgA1c,Microalbumin - Chemistry creatinine, serum 0.9 mg/dL sodium, serum 139 mmol/L carbon dioxide, venous blood 21 mmol/L urea nitrogen, blood 16 mg/dL protein, total, serum 6.9 g/dL alkaline phosphatase, serum 55 U/L aspartate aminotransferase (SGOT), serum 19 U/L albumin, serum 4.3 g/dL alanine aminotransferase (SGPT), serum 41 U/L cholesterol, serum 151 mg/dL hemoglobin A1C, blood, as % of total hemoglobin 7.1 % chloride, serum 107 mmol/L calcium, serum 9.2 mg/dL potassium, serum 4.1 mmol/L Estimated Glomerular Filtration Rate (calc) >60 mL/min/1.73m2 triglyceride, serum, fasting 88 mg/dL glucose, plasma fasting 164 mg/dL bilirubin, serum, total 0.7 mg/dL Clinical Lists Update: CBC,CMP,Chol,Trig,HgA1c,Microalbumin - Hematology erythrocyte (RBC) count 4.92 10*6/mm3 hemoglobin, blood 14.6 g/dL leukocyte count, blood 6.3 10*3/mm3 mean corpuscular volume, RBC 89 fL platelet count 216 10*3/mm3 red blood cell distribution width 13.8 % hematocrit, blood 44.0 % Clinical Lists Update: CMP,CHOL,TRIG,HgA1c - Chemistry potassium, serum 4.0 mmol/L protein, total, serum 6.6 g/dL aspartate aminotransferase (SGOT), serum 19 U/L alanine aminotransferase (SGPT), serum 37 U/L bilirubin, serum, total 0.6 mg/dL triglyceride, serum, fasting 54 mg/dL sodium, serum 141 mmol/L glucose, plasma fasting 174 mg/dL Estimated Glomerular Filtration Rate (calc) >60 mL/min/1.73m2 hemoglobin A1C, blood, as % of total hemoglobin 7.0 % albumin, serum 4.3 g/dL alkaline phosphatase, serum 49 U/L urea nitrogen, blood 12 mg/dL calcium, serum 9.1 mg/dL chloride, serum 107 mmol/L cholesterol, serum 155 mg/dL carbon dioxide, venous blood 23 mmol/L creatinine, serum 0.8 mg/dL Clinical Lists Update: CMP,FLP,HGA1C - Chemistry chloride, serum 108 mmol/L creatinine, serum 0.8 mg/dL potassium, serum 4.1 mmol/L calcium, serum 9.3 mg/dL sodium, serum 141 mmol/L protein, total, serum 6.7 g/dL urea nitrogen, blood 19 mg/dL cholesterol/HDL ratio, serum, percent 3.9 aspartate aminotransferase (SGOT), serum 14 U/L alkaline phosphatase, serum 51 U/L glucose, plasma fasting 142 mg/dL alanine aminotransferase (SGPT), serum 28 U/L LDL cholesterol, serum 88 mg/dL bilirubin, serum, total 0.6 mg/dL cholesterol, serum 145 mg/dL hemoglobin A1C, blood, as % of total hemoglobin 7.3 % Estimated Glomerular Filtration Rate (calc) >60 mL/min/1.73m2 carbon dioxide, venous blood 22 mmol/L HDL cholesterol, serum 37 mg/dL albumin, serum 4.3 g/dL triglyceride, serum, fasting 101 mg/dL Clinical Lists Update: CMP,FLP,TSH,HgA1c - Chemistry Estimated [...] mg/dL Encounters Code Encounter Date Provider Facility CPT-97856 Ofc Vst, Est Level IV 15:58:20 CDT Yulia Cruz DO, FACP CPT-75715 Ofc Vst, Est Level IV 19:28:17 [employer] [employer]OOK Yulia Cruz DO, FACP CPT-70491 Ofc Vst, Est Level III 13:16:58 CDT Yulia Cruz DO, FACP CPT-49671 Ofc Vst, Est Level IV 17:21:21 CDT Yuliamilagros Del Rio Cruz, DO, FACP CPT-25013 Ofc Vst, Est Level III 15:17:17 CDT Yulia Ny Del Rio Cruz, DO, FACP CPT-81574 Ofc Vst, Est Level III 15:56:42 CDT Yulia Ny Del [place] Cruz, DO, FACP CPT-18108 Ofc Vst, Est Level IV 20:17:52 CDT Yulia Ny [place] Cruz, DO, FACP CPT-65317 Ofc Vst, Est Level IV 16:24:31 CDT Yulia Ny Cruz [facility] CPT-83953 Ofc Vst, Est Level IV 19:42:41 [facility] Yuliamilagros Del Rio Cruz, DO, FACP CPT-88034 Ofc Vst, Est Level III 12:16:29 CDT Yuliamilagros Del Rio Cruz, DO, FACP CPT-21791 Ofc Vst, Est Level III 14:15:44 [facility] Yulia Del Rio Anthony, DO, FACP CPT-51604 Ofc Vst, Est Level II 13:59:22 [facility] Yulia Del Rio Cruz, DO, FACP CPT-50036 Ofc Vst, Est Level III 16:44:22 CDT Yulia Ny Del Rio Cruz, DO, FACP CPT-33555 Ofc Vst, Est Level IV 15:56:20 CDT Yuliamilagros Cruz [facility] CPT-43631 Ofc Vst, Est Level IV 15:37:15 CDT Yulia Ny Cruz [facility] CPT-87525 Ofc Vst, Est Level III 16:02:15 [facility] Yuliamilagros Del Rio Anthony, DO, FACP CPT-94295 Ofc Vst, Est Level IV 16:07:44 [facility] COOK [facility] OFF[facility] CPT-49350 Ofc Vst, Est Level III 15:08:39 [facility] COOK [facility] CPT-85100 Ofc Vst, Est Level V 15:13:27 CDT [facility] DO Anthony, FACP CPT-91306 Ofc Vst, New Level IV 17:01:35 CDT [facility] Procedures Code Procedure Name Date Entry Date Standard Description CPT-70688 Preventive, Est, (40-64) 19:33:45 CDT CPT-14340 EKG w/ Interpretation 16:24:31 CDT CPT-02400 Preventive, Est, (40-64) 12:55:40 [facility] COOK CPT-79030 EKG w/ Interpretation 19:42:41 [facility] COOK CPT-35017 Preventive, Est, (40-64) 20:10:48 CDT
--- OUTSIDE RECORDS SUMMARY | 2017-04-25 18:13 | XMS REPORT | Clinical Summary ---
Author Author User, BRITT Macias [place] [facility] Address Unknown Phone Allergies, Adverse Reactions, [...] TABS 1-2 TABS PO QHS TIZANIDINE HCL 29335257590 Active Nohemi Swartz ZYRTEC 10 MG TAB 1 PO QD CETIRIZINE HCL Active Yulia Cruz KEFLEX 500 MG CAP 1 PO TID for 7 days CEPHALEXIN 99403968133 No Longer Active Yuliamilagros Cruz BYDUREON 2 MG SUSR 1 injection weekly EXENATIDE 12764552583 Active Nohemi Swartz TOPAMAX 25 MG TABS 1 PO BID TOPIRAMATE 37399874784 No Longer Active Yulia Cruz FIORINAL 325-50-40 MG CAP 1 PO TID prn ASPIRIN- CAFFEINE-BUTALBITAL 16294696336 No Longer Active Yulia Cruz FLUTICASONE PROPIONATE 50 MCG/ACT SUSP 2 Puffs Each Nostril Daily FLUTICASONE PROPIONATE 51201777712 Active Yulia Cruz METOPROLOL TARTRATE 25 MG TABS 1 PO BID METOPROLOL TARTRATE 31506319757 No Longer Active Yulia Cruz DINA ALLERGY 180 MG TABS 1 po daily FEXOFENADINE HCL 98751802356 No Longer Active Yulia Cruz DOXAZOSIN MESYLATE 4 MG TABS 1 PO QPM DOXAZOSIN MESYLATE 74317230902 Active Nohemi Swartz DEMADEX 20 MG TABS 1/2 PO daily TORSEMIDE 34180821327 No Longer Active Yulia Cruz TORSEMIDE 10 MG TABS 1 pO DAILY TORSEMIDE 56307492634 Active Nohemi Swartz [employer] TEST DISK Test BS BID DX: Diabetes GLUCOSE BLOOD 64628627114 Active Nohemi Swartz CATAPRES 0.1 MG TABS 1 PO BID CLONIDINE HCL 27744817999 No Longer Active Yulia Ny Cruz EPLERENONE 50 MG TABS 1 PO daily EPLERENONE 91157634831 No Longer Active Yulia Ny Cruz ALDACTONE 25 MG TABS 1 PO daily SPIRONOLACTONE 16571485294 Active Nohemi Swartz HYDROCHLOROTHIAZIDE 25 MG TAB 1 PO daily HYDROCHLOROTHIAZIDE 62344936940 No Longer Active Yulia Ny Cruz OMEPRAZOLE 20 MG CPDR 1 PO BID OMEPRAZOLE 83377558512 No Longer Active Yulia Ny Cruz CARAFATE 1 GM TABS 1 PO 30 minutes before meals and at bedtime SUCRALFATE 23360774799 No Longer Active Yulia Ny Cruz ALLOPURINOL 300 MG TABS 1 PO daily ALLOPURINOL 28893103286 No Longer Active Yulia Ny Cruz BENICAR 20 MG TABS 1 PO daily OLMESARTAN MEDOXOMIL 95250617707 No Longer Active Yulia Ny Cruz BENTYL 10 MG CAP 1 PO QID prn abdominal pain DICYCLOMINE HCL 00535321130 No Longer Active Yulia Ny Cruz VITAMIN D (ERGOCALCIFEROL) 33032 UNIT CAPS 1 PO every week ERGOCALCIFEROL 36316579135 Active Nohemi Swartz OCUFLOX 0.3 % SOLN 2 drops left ear BID for 5 days OFLOXACIN 84693979819 No Longer Active Yulia Ny Cruz KEFLEX 500 MG CAP 1 PO TID for 7 days CEPHALEXIN 23304031594 No Longer Active Yulia Ny Cruz OMEPRAZOLE 20 MG CPDR 1 PO BID OMEPRAZOLE 58943426806 No Longer Active Yulia Ny Cruz PREDNISONE 20 MG TAB 2 pills at once for 2 days then 1 pill daily for 2 days PREDNISONE 92118303019 No Longer Active Yulia Ny Cruz NORCO 10-325 MG TABS 1 PO TID prn HYDROCODONE-ACETAMINOPHEN 53041469837 Active Yulia Cruz ULTRAM 50 MG TABS 1 PO TID prn pain TRAMADOL HCL 64810312257 No Longer Active Yulia Alejandra Anthony K-DUR 10 MEQ TAB CR 1 PO BID prn POTASSIUM CHLORIDE No Longer Active Yulia Roachner LASIX 20 MG TAB 1 PO daily prn FUROSEMIDE 07965894245 No Longer Active Yulia Roachner EPIPEN 2-AYAH 0.3 MG/0.3ML AYDIN as directed EPINEPHRINE 21253261730 Active Yulia Roachner NORVASC 10 MG TABS 1 PO daily AMLODIPINE BESYLATE 97084668629 Active Nohemi Mcelroytis CLARITIN 10 MG TAB 1 PO daily LORATADINE 86486811842 No Longer Active Yulia Alejandra Anthony Immunizations [...] mg/dL Encounters Code Encounter Date Provider Facility CPT-80989 Ofc Vst, Est Level IV 19:28:17 SENIOR SAFETY MANAGEMENT CONSULTANT Yulia Cruz DO, FACP CPT-18503 Ofc Vst, Est Level III 13:16:58 CDT Yulia Bender S Anthony, DO, FACP CPT-59756 Ofc Vst, Est Level IV 17:21:21 CDT Yulia Ny Del [place] Anthony, DO, FACP CPT-71820 Ofc Vst, Est Level III 15:17:17 CDT Yulia Ny [place] Anthony, DO, FACP CPT-28101 Ofc Vst, Est Level III 15:56:42 CDT Yulia Ny [place] Anthony, DO, FACP CPT-00169 Ofc Vst, Est Level IV 20:17:52 CDT Yulia Ny [place] Anthony, DO, FACP CPT-98251 Ofc Vst, Est Level IV 16:24:31 CDT Yuliamilagros Cruz [facility] CPT-15390 Ofc Vst, Est Level IV 19:42:41 SENIOR SAFETY MANAGEMENT CONSULTANT Yuliamilagros Del [place] Anthony, DO, FACP CPT-87855 Ofc Vst, Est Level III 12:16:29 CDT Yuliamilagros Del [place] Anthony, DO, FACP CPT-57068 Ofc Vst, Est Level III 14:15:44 SENIOR SAFETY MANAGEMENT CONSULTANT Yulia Del Rio Anthony, DO, FACP CPT-93134 Ofc Vst, Est Level II 13:59:22 SENIOR SAFETY MANAGEMENT CONSULTANT Yuliamilagros Del Rio Anthony, DO, FACP CPT-39722 Ofc Vst, Est Level III 16:44:22 CDT Yuliamilagros Del Rio Anthony, DO, FACP CPT-68668 Ofc Vst, Est Level IV 15:56:20 CDT Yuliamilagros Cruz [facility] CPT-46241 Ofc Vst, Est Level IV 15:37:15 CDT Yulia Ny Cruz [facility] CPT-45929 Ofc Vst, Est Level III 16:02:15 SENIOR SAFETY MANAGEMENT CONSULTANT Yulia Ny Treadwellmilagros Cruz DO, FACP CPT-16194 Ofc Vst, Est Level IV 16:07:44 SENIOR SAFETY MANAGEMENT CONSULTANT [facility] OFFICE CPT-89830 Ofc Vst, Est Level III 15:08:39 SENIOR SAFETY MANAGEMENT CONSULTANT [facility] OFFICE CPT-97255 Ofc Vst, Est Level V 15:13:27 CDT [facility] Cruz Yulia Cruz DO, FACP CPT-21187 Ofc Vst, New Level IV 17:01:35 CDT [facility] Procedures Code Procedure Name Date Entry Date Standard Description CPT-87639 Preventive, Est, (40-64) 19:33:45 CDT CPT-63330 EKG w/ Interpretation 16:24:31 CDT CPT-59992 Preventive, Est, (40-64) 12:55:40 SENIOR SAFETY MANAGEMENT CONSULTANT CPT-45946 EKG w/ Interpretation 19:42:41 SENIOR SAFETY MANAGEMENT CONSULTANT CPT-31816 Preventive, Est, (40-64) 20:10:48 CDT
--- OUTSIDE RECORDS SUMMARY | 2017-04-25 18:14 | XMS REPORT ---
Author SARITHA Lofton [facility] [place] eClinicalWorks Address Unknown Phone Unavailable Care Team Providers Care Hr Generalist Name Role Phone SARITHA BAKER CP Unavailable Allergies, Adverse Reactions, Alerts Substance Reaction Event Type Penicillin G Sodium hives Drug Allergy Problems Problem Type Condition Code Onset Dates Condition Status Assessment Seasonal allergic rhinitis due to pollen J30.1 Active Medications Medication Code System Code Instructions Start Date End Date Status Dosage Tizanidine HCl [facility] [address]-25 4 MG Orally every 8 hrs 1 tablet as needed Spironolactone [facility] [address]-72 25 MG Orally Once a day 1 tablet Doxazosin Mesylate [facility] [address]-26 4 MG Orally Once a day 1 tablet Sucralfate [facility] [address]-82 1 GM Orally Twice a day 1 tablet on an empty stomach Singulair [facility] [address]-27 10 mg Orally Once a day Apr 08, 2016 1 tablet in the evening Omeprazole [facility] [address]-76 40 MG Orally Once a day 1 capsule Potassium Chloride [facility] [address]-03 10 MEQ Orally Once a day 1 tablet with food Fluticasone Propionate [facility] [address]-60 50 MCG/ACT Nasally Once a day 1 spray in each nostril Vitamin D [facility] [address]-06 86075 UNIT Orally once weekly 1 capsule Benadryl [facility] [address]-67 12.5 Orally every 6 hrs 1 capsule as needed Glimepiride [facility] [address]-93 1 MG Orally Once a day 1 tablet with breakfast or the first main meal of the day Torsemide [facility] [address]-85 10 MG Orally Once a day 1 tablet Zoey NDC 0 180mg Once a day not defined Procedures Procedure Coding System Code Date Office Visit, New Pt., Level 2 CPT-4 14064 Apr 08, 2016 Vital Signs Date/Time: Apr 08, 2016 Cardiac Monitoring Heart Rate 82 bpm Weight 256.7 lbs Height 69.0 in BMI 37.90 Index Blood Pressure Diastolic 80 mmHg Blood Pressure Systolic 140 mmHg Results No Known Results Summary Purpose eClinicalWorks Submission
--- OUTSIDE RECORDS SUMMARY | 2017-04-25 18:14 | XMS REPORT | Clinical Summary ---
Author Author User, BRITT Macias [place] [facility] Address Unknown Phone Allergies, Adverse Reactions, [...] TABS 1-2 TABS PO QHS TIZANIDINE HCL 89713416987 Active Nohemi Swartz ZYRTEC 10 MG TAB 1 PO QD CETIRIZINE HCL Active Yuliamilagros Cruz KEFLEX 500 MG CAP 1 PO TID for 7 days CEPHALEXIN 11502674825 No Longer Active Yulia Ny Cruz BYDUREON 2 MG SUSR 1 injection weekly EXENATIDE 40411592286 Active Nohemi Swartz TOPAMAX 25 MG TABS 1 PO BID TOPIRAMATE 57920029311 No Longer Active Yuliamilagros Cruz FIORINAL 325-50-40 MG CAP 1 PO TID prn ASPIRIN- CAFFEINE-BUTALBITAL 34789786096 No Longer Active Yuliamilagros Cruz FLUTICASONE PROPIONATE 50 MCG/ACT SUSP 2 Puffs Each Nostril Daily FLUTICASONE PROPIONATE 45392282358 Active Yulia Cruz METOPROLOL TARTRATE 25 MG TABS 1 PO BID METOPROLOL TARTRATE 88014818023 No Longer Active Yulia Cruz DINA ALLERGY 180 MG TABS 1 po daily FEXOFENADINE HCL 07634934770 No Longer Active Yulia Cruz DOXAZOSIN MESYLATE 4 MG TABS 1 PO QPM DOXAZOSIN MESYLATE 25037443905 Active Nohemi wSartz DEMADEX 20 MG TABS 1/2 PO daily TORSEMIDE 64066530163 No Longer Active Yuliamilagros Cruz TORSEMIDE 10 MG TABS 1 pO DAILY TORSEMIDE 75646844640 Active Nohemi Swartz [employer] TEST DISK Test BS BID DX: Diabetes GLUCOSE BLOOD 72099284019 Active Nohemi Swartz CATAPRES 0.1 MG TABS 1 PO BID CLONIDINE HCL 31101001133 No Longer Active Yulia Ny Cruz EPLERENONE 50 MG TABS 1 PO daily EPLERENONE 24997495818 No Longer Active Yulia Ny Cruz ALDACTONE 25 MG TABS 1 PO daily SPIRONOLACTONE 63496284937 Active Nohemi Swartz HYDROCHLOROTHIAZIDE 25 MG TAB 1 PO daily HYDROCHLOROTHIAZIDE 85818483975 No Longer Active Yulia Ny Cruz OMEPRAZOLE 20 MG CPDR 1 PO BID OMEPRAZOLE 63360066387 No Longer Active Yulia Ny Cruz CARAFATE 1 GM TABS 1 PO 30 minutes before meals and at bedtime SUCRALFATE 52552800802 No Longer Active Yulia Ny Cruz ALLOPURINOL 300 MG TABS 1 PO daily ALLOPURINOL 72801186602 No Longer Active Yulia Ny Cruz BENICAR 20 MG TABS 1 PO daily OLMESARTAN MEDOXOMIL 63883519437 No Longer Active Yulia Ny Cruz BENTYL 10 MG CAP 1 PO QID prn abdominal pain DICYCLOMINE HCL 68719521881 No Longer Active Yulia Ny Cruz VITAMIN D (ERGOCALCIFEROL) 90434 UNIT CAPS 1 PO every week ERGOCALCIFEROL 19551832770 Active Nohemi Swartz OCUFLOX 0.3 % SOLN 2 drops left ear BID for 5 days OFLOXACIN 10063887014 No Longer Active Yulia Ny Cruz KEFLEX 500 MG CAP 1 PO TID for 7 days CEPHALEXIN 10241873530 No Longer Active Yulia Ny Cruz OMEPRAZOLE 20 MG CPDR 1 PO BID OMEPRAZOLE 69549451837 No Longer Active Yulia Ny Cruz PREDNISONE 20 MG TAB 2 pills at once for 2 days then 1 pill daily for 2 days PREDNISONE 67007028665 No Longer Active Yulia Ny Roachner NORCO 10-325 MG TABS 1 PO TID prn HYDROCODONE-ACETAMINOPHEN 45367323349 Active Yulia Alejandra Cruz ULTRAM 50 MG TABS 1 PO TID prn pain TRAMADOL HCL 96045435423 No Longer Active Yuliamilagros Jaqueze Anthony K-DUR 10 MEQ TAB CR 1 PO BID prn POTASSIUM CHLORIDE No Longer Active Yuliamilagros Jaqueze Anthony LASIX 20 MG TAB 1 PO daily prn FUROSEMIDE 87357788802 No Longer Active Yulia Ny Anthony EPIPEN 2-AYAH 0.3 MG/0.3ML AYDIN as directed EPINEPHRINE 29460192524 Active Yulia Alejandra Anthony NORVASC 10 MG TABS 1 PO daily AMLODIPINE BESYLATE 65617915199 Active Nohemi Swartz CLARITIN 10 MG TAB 1 PO daily LORATADINE 92792404236 No Longer Active Yulia Jaqueze Anthony Immunizations [...] mg/dL Encounters Code Encounter Date Provider Facility CPT-24184 Ofc Vst, Est Level IV 19:28:17 CRM ADMINISTRATOR Yulia Cruz DO, FACP CPT-11687 Ofc Vst, Est Level III 13:16:58 CDT Yulia Cruz, DO, FACP CPT-59136 Ofc Vst, Est Level IV 17:21:21 CDT Yulia Ny Del Rio Anthony, DO, FACP CPT-24503 Ofc Vst, Est Level III 15:17:17 CDT Yulia Ny Del Rio Anthony, DO, FACP CPT-59866 Ofc Vst, Est Level III 15:56:42 CDT Yulia Ny Del Rio Anthony, DO, FACP CPT-59847 Ofc Vst, Est Level IV 20:17:52 CDT Yulia Ny Del Rio Anthony, DO, FACP CPT-95808 Ofc Vst, Est Level IV 16:24:31 CDT Yuliamilagros Cruz [facility] CPT-19050 Ofc Vst, Est Level IV 19:42:41 CRM ADMINISTRATOR Yuliamilagros Del Rio Anthony, DO, FACP CPT-29982 Ofc Vst, Est Level III 12:16:29 CDT Yulia Ny Del Rio Anthony, DO, FACP CPT-74994 Ofc Vst, Est Level III 14:15:44 CRM ADMINISTRATOR Yulia Del Rio Anthony, DO, FACP CPT-61196 Ofc Vst, Est Level II 13:59:22 CRM ADMINISTRATOR Yuliamilagros Del Rio Anthony, DO, FACP CPT-68713 Ofc Vst, Est Level III 16:44:22 CDT Yuliamilagros Del Rio Anthony, DO, FACP CPT-60920 Ofc Vst, Est Level IV 15:56:20 CDT Yulia Ny Cruz [facility] CPT-82584 Ofc Vst, Est Level IV 15:37:15 CDT Yulia Ny Cruz [facility] CPT-59492 Ofc Vst, Est Level III 16:02:15 CRM ADMINISTRATOR Yulia Ny Cruz Yulia Cruz DO, FACP CPT-37143 Ofc Vst, Est Level IV 16:07:44 CRM ADMINISTRATOR [facility] OFFICE CPT-43680 Ofc Vst, Est Level III 15:08:39 CRM ADMINISTRATOR [facility] OFFICE CPT-51725 Ofc Vst, Est Level V 15:13:27 CDT [facility] Ny Cruz Yulia Cruz DO, FACP CPT-43841 Ofc Vst, New Level IV 17:01:35 CDT [facility] Ny [facility] Procedures Code Procedure Name Date Entry Date Standard Description CPT-31271 Preventive, Est, (40-64) 19:33:45 CDT CPT-20493 EKG w/ Interpretation 16:24:31 CDT CPT-06697 Preventive, Est, (40-64) 12:55:40 CRM ADMINISTRATOR CPT-54382 EKG w/ Interpretation 19:42:41 CRM ADMINISTRATOR CPT-19414 Preventive, Est, (40-64) 20:10:48 CDT
[2017-04-25] MEDS ORDERED: ASPIRIN 81 MG CHEW (CHILDREN'S ASA) PO ONE (18:15)
--- OUTSIDE RECORDS SUMMARY | 2017-04-25 18:15 | XMS REPORT ---
Author Tej Brandon Organization [facility] Address [address] [place], [place] [id number] Care Team Providers Care Adjuster Electrical Contacts Name Role Phone Tej Hughes PCP Unavailable Allergies and Adverse Reactions Name Reaction Notes PENICILLINS Xylocaine (Cardiac) Plan of Treatment Not available. Medications Active Name Start Date Estimated Completion Date SIG Comments clonidine HCl 0.1 mg oral tablet 03/29/2011 take 1 tablet (0.1 mg) by oral route 2 times per day cyclobenzaprine 10 mg oral tablet 07/30/2013 take 1 tablet by mouth daily at HS naproxen 500 mg oral tablet,delayed release (DR/EC) 07/30/2013 take 1 tablet by oral route 2 times a day Bactrim DS 800-160 mg oral tablet 04/20/2016 04/27/2016 take 1 tablet by oral route 2 times per day for 7 days Name Start Date Expiration Date SIG Comments Levaquin 500 mg oral tablet 08/30/2009 09/06/2009 take 1 tablet (500 mg) by oral route once daily for 7 days Zithromax Z-Wilner 250 mg oral tablet 05/23/2010 06/02/2010 take 2 tablets (500 mg) by oral route once daily for 1 day then 1 tablet (250 mg) by oral route once daily for 4 days amlodipine 10 mg oral tablet 08/27/2010 09/26/2010 TAKE 1 TABLET BY MOUTH EVERY DAY Medrol (Wilner) 4 mg oral tablets,dose pack 11/01/2010 11/11/2010 take as directed for 5 days Zithromax Z-Wilner 250 mg oral tablet 11/01/2010 11/11/2010 take 2 tablets (500 mg) by oral route once daily for 1 day then 1 tablet (250 mg) by oral route once daily for 4 days Bactrim DS 800-160 mg oral tablet 04/23/2011 05/03/2011 take 1 tablet by oral route 3 times a day for 10 days metoprolol tartrate 25 mg oral tablet 04/17/2012 04/12/2013 take 1 tablet by oral route 2 times a day Zoey 180 mg oral tablet 04/17/2012 05/17/2012 take 1 tablet (180 mg) by oral route once daily doxazosin 4 mg oral tablet 04/17/2012 05/17/2012 take 1 tablet (4 mg) by oral route once daily spironolactone 25 mg oral tablet 04/17/2012 05/17/2012 take 1 tablet (25 mg) by oral route once daily torsemide 10 mg oral tablet 04/17/2012 05/17/2012 take 1 tablet (10 mg) by oral route once daily metaxalone 800 mg oral tablet 04/23/2012 05/23/2012 take 1 tablet (800 mg) by oral route 3 times per day as needed Zithromax Z-Wilner 250 mg oral tablet 10/20/2013 10/25/2013 take 2 tablets (500 mg ) by oral route once daily for 1 day then 1 tablet (250 mg) by oral route once daily for 4 days Discontinued Name Start Date Discontinued Date SIG Comments Medrol (Wilner) 4 mg oral tablets,dose pack 08/30/2009 07/03/2010 take as directed hydrochlorothiazide 50 mg oral tablet 07/03/2010 take 1 tablet (50 mg) by oral route once daily potassium 99 mg oral tablet 07/03/2010 aspirin 81 mg oral tablet 04/17/2012 take 1 tablet (81 mg) by oral route once daily benazepril 40 mg oral tablet 09/17/2010 01/29/2011 TAKE 1 TABLET BY MOUTH TWICE DAILY Nasonex 50 mcg/actuation nasal spray,non-aerosol 04/17/2012 spray 2 sprays in each nostril by intranasal route once daily Tekturna 150 mg oral tablet 12/03/2010 03/29/2011 take 1 tablet (150 mg) by oral route once daily Benicar 40 mg oral tablet 04/17/2012 take 1/2 tablet by oral route QD for 1 week, then 1 tab daily hydrochlorothiazide 12.5 mg oral capsule 03/29/2011 take 1 capsule (12.5 mg ) by oral route once daily potassium chloride 20 mEq oral tablet,ER particles/crystals 05/14/2011 take 1 tablet (20 meq) by oral route once daily with food Nitrostat 0.4 mg sublingual tablet, sublingual 04/17/2012 place 1 tablet ( 0.4 mg) by buccal route at the first sign of an attack; no more than 3 tablets are recommended within a 15 minute period. Zithromax Z-Wilner 250 mg oral tablet 05/14/2011 take 2 tablets (500 mg) by oral route once daily for 1 day then 1 tablet (250 mg) by oral route once daily for 4 days Problem List Description Status Onset Hypertension Active Vital Signs Date Time BP-Sys(mm[Hg] BP-Sri(mm[Hg]) HR(bpm) RR(rpm) Temp WT HT HC BMI BSA BMI Percentile O2 Sat(%) 04/20/2016 10:35:00 AM 156 mmHg 98 mmHg 88 bpm 98.3 F 254 lbs 70 in 36.44 kg/m2 2.39 m2 96 % 12/06/2013 4:06:00 PM 136 mmHg 78 mmHg 69 bpm 18 rpm 98.8 F 266.5 lbs 70 in 38.2384 kg/m 2.4434 m 98 % 10/20/2013 3:02:00 PM 136 mmHg 66 mmHg 65 bpm 18 rpm 96.9 F 269.125 lbs 70 in 38.62 kg/m2 2.46 m2 97 % 09/23/2013 8:19:00 AM 136 mmHg 74 mmHg 63 bpm 18 rpm 97.5 F 263.5 lbs 70 in 37.8079 kg/m 2.4296 m 98 % 09/16/2013 8:56:00 AM 140 mmHg 76 mmHg 68 bpm 18 rpm 97.4 F 266.25 lbs 70 in 38.20 kg/m2 2.44 m2 98 % 09/02/2013 9:05:00 AM 132 mmHg 68 mmHg 70 bpm 18 rpm 97.3 F 261.187 lbs 70 in 37.4761 kg/m 2.4189 m 97 % 08/06/2013 8:25:00 AM 132 mmHg 64 mmHg 62 bpm 18 rpm 97.1 F 259.25 lbs 70 in 37.20 kg/m2 2.41 m2 97 % 07/30/2013 8:20:00 AM 130 mmHg 76 mmHg 73 bpm 18 rpm 97.6 F 255.375 lbs 70 in 36.6421 kg/m 2.3919 m 97 % 04/23/2012 2:46:00 PM 130 mmHg 80 mmHg 68 bpm 16 rpm 98.2 F 95 % 04/17/2012 11:10:00 AM 114 mmHg 80 mmHg 64 bpm 16 rpm 97 F 97 % 05/14/2011 3:15:00 PM 138 mmHg 64 mmHg 72 bpm 18 rpm 97.3 F 245.5 lbs 70 in 35.23 kg/m2 2.35 m2 04/23/2011 8:30:00 AM 162 mmHg 98 mmHg 74 bpm 97.6 F 238 lbs 03/29/2011 9:47:00 AM 146 mmHg 84 mmHg 03/29/2011 9:19:00 AM 164 mmHg 74 mmHg 68 bpm 20 rpm 97.6 F 237 lbs 70 in 34.0056 kg/m 2.30 m2 01/29/2011 2:50:00 PM 140 mmHg 92 mmHg 60 bpm 20 rpm 99 F 242 lbs 12/03/2010 2:53:00 PM 156 mmHg 98 mmHg 64 bpm 20 rpm 99.1 F 250 lbs 10/29/2010 3:34:00 PM 140 mmHg 94 mmHg 60 bpm 20 rpm 97.8 F 252 lbs 07/17/2010 3:43:00 PM 154 mmHg 96 mmHg 72 bpm 20 rpm 98.7 F 248 lbs 07/03/2010 1:40:00 PM 130 mmHg 80 mmHg 68 bpm 20 rpm 98.6 F 242 lbs 05/23/2010 1:20:00 PM 136 mmHg 84 mmHg 64 bpm 18 rpm 97.8 F 243 lbs 01/25/2010 8:50:00 AM 140 mmHg 80 mmHg 70 bpm 16 rpm 98.5 F 246.25 lbs 08/22/2009 8:18:00 AM 122 mmHg 72 mmHg 58 bpm 97.8 F 252 lbs Social History Name Description Comments Alcohol Use Lives with spouse [employer] Tobacco Never smoker History of Procedures Date Ordered Description Order Status 05/14/2011 12:00 AM METABOLIC PANEL TOTAL CA Reviewed 05/14/2011 12:00 AM Decadron 1 mg NDC#[id number] (Tito) Reviewed 05/14/2011 12:00 AM Depo-Medrol 80 mg NDC#[id number] Reviewed 04/20/2016 10:46 AM URINALYSIS AUTO W/O SCOPE Reviewed 09/16/2013 12:00 AM MRI JOINT UPR EXTR W/O&W/DYE Returned 10/20/2013 12:00 AM THER/PROPH/DIAG INJ SC/IM Reviewed 10/20/2013 12:00 AM Decadron, Per 1 Mg [facility]# [address]-96 Reviewed 10/20/2013 12:00 AM Depo-Medrol, Per 80 Mg [facility]#8996-7616-01 Reviewed 05/23/2010 12:00 AM COMPREHEN METABOLIC PANEL Reviewed 05/23/2010 12:00 AM LIPID PANEL Reviewed 05/23/2010 12:00 AM Prostate Cancer Screening PSA Reviewed 08/22/2009 12:00 AM CARDIOVASCULAR STRESS TEST Reviewed 07/03/2010 12:00 AM METABOLIC PANEL TOTAL CA Reviewed 05/28/2010 12:00 AM THER/PROPH/DIAG INJ SC/IM Reviewed 05/28/2010 12:00 AM Decadron Inj. per 1mg-[facility] [id number] Reviewed 05/28/2010 12:00 AM Depo-Medrol 80 Mg [facility] [id number]-Kzkyipsxr Reviewed Results Summary Data and Description Results 07/03/2010 2:27 PM GLUCOSE 138.0 mg/dLSODIUM 140.0 mmol/LPOTASSIUM 3.30 mmol/ LCHLORIDE 99.0 mmol/LCO2 30.0 mmol/LBUN 15.0 mg/dLCREATININE 1.0 mg/dLCALCIUM 9.50 mg/dLeGFR >60 mL/min/1.73 m2 05/14/2011 3:58 PM GLUCOSE 99.0 mg/dLSODIUM 142.0 mmol/LPOTASSIUM 3.70 mmol/ LCHLORIDE 105.0 mmol/LCO2 25.0 mmol/LBUN 14.0 mg/dLCREATININE 0.80 mg/dLCALCIUM 8.90 mg/dLeGFR >60 mL/min/1.73 m2 04/20/2016 10:46 AM Clarity Ur clear Color Ur yellow Glucose Ur-sCnc negative Bilirub Ur Ql Strip negative Ketones Ur Ql Strip negative Sp Gr Ur Qn 1.015 Hgb Ur Ql Strip trace pH Ur-LsCnc 5.0 Prot Ur Ql Strip negative Urobilinogen Ur- mCnc 0.2 Nitrite Ur Ql Strip negative WBC Est Ur Ql Strip negative History Of Immunizations Not available. History of Past Illness Name Date of Onset Comments Hypertension Aug 22 2009 8:22AM Chest Pain Aug 22 2009 8:22AM Hypertension Headache Impaired Fasting Glucose Upper Respiratory Infection Juan M 2010 8:59AM Sinusitis, Acute May 23 2010 1:22PM Hypertension May 23 2010 1:22PM Prostate screening May 23 2010 1:22PM Hypertension Jul 03 2010 1:47PM Essential Hypertension Jul 17 2010 3:45PM Sinusitis, Acute Aug 01 2010 1:51PM Sinusitis, Acute Oct 29 2010 3:38PM Hypertension Dec 03 2010 2:56PM Hyperglycemia Dec 03 2010 2:56PM Hypertension Jan 29 2011 2:52PM Hypertension Mar 29 2011 9:26AM Low Back Pain Mar 29 2011 9:26AM Kidney Cyst Mar 29 2011 9:26AM Cellulitis/Abscess, unspecified Apr 23 2011 8:34AM Hypertension May 14 2011 3:14PM Sinusitis, Acute May 14 2011 3:14PM Sprain And Strain Apr 17 2012 11:18AM Sprain And Strain Apr 23 2012 2:49PM Sprain And Strain May 14 2012 2:50PM Left Pain in joint; shoulder region Jul 30 2013 8:22AM Pain in joint; shoulder region, Left Aug 06 2013 8:28AM Pain in joint; shoulder region, Left Sep 02 2013 9:08AM Pain in joint; shoulder region, Left Sep 16 2013 8:59AM Pain in joint; shoulder region, Left Sep 23 2013 8:22AM Upper Respiratory Infections Oct 20 2013 3:04PM Upper Respiratory Infections Dec 06 2013 4:07PM Acute cystitis without hematuria Apr 20 2016 10:39AM Payers Insurance Name Company Name Plan Name Plan Number Policy Number Policy Group Number Start Date [facility] [id number] N/A [facility] Self Insurance Fund *INVALID State Self Insurance [id number] N/A [facility] [id number] June History of Encounters Visit Date Visit Type Provider 04/20/2016 Office visit Tej Hughes NP 11/02/2015 Hospital Nancy Carrero MD 03/14/2014 Hospital Nancy Carrero MD 12/06/2013 Office visit Chante Thompson COMPUTER NUMERICAL CONTROL OPERATOR 10/20/2013 Office visit Chante Thompson COMPUTER NUMERICAL CONTROL OPERATOR 09/23/2013 Office visit Chante Thompson COMPUTER NUMERICAL CONTROL OPERATOR 09/16/2013 Office visit Chante Thompson COMPUTER NUMERICAL CONTROL OPERATOR 09/02/2013 Office visit Chante Thompson COMPUTER NUMERICAL CONTROL OPERATOR 08/06/2013 Office visit Chante Thompson COMPUTER NUMERICAL CONTROL OPERATOR 07/30/2013 Office visit Chante Thompson COMPUTER NUMERICAL CONTROL OPERATOR 06/29/2013 Hospital Nancy Carrero MD 06/09/2012 Hospital Nancy Carrero MD 05/14/2012 Office visit Yamile Rowland MD 04/23/2012 Office visit Yamile Rowland MD 04/17/2012 Office visit Yamile Rowland MD 05/14/2011 Office visit Chante Thompson COMPUTER NUMERICAL CONTROL OPERATOR 04/23/2011 Office visit Holden Atwood MD 03/29/2011 Office visit Holden Atwood MD 03/11/2011 Hospital Nancy Carrero MD 03/11/2011 Hospital Nancy Carrero MD 03/11/2011 Hospital Nancy Carrero MD 03/10/2011 Hospital Nancy Carrero MD 03/10/2011 Hospital Nancy Carrero MD 02/27/2011 Hospital Nancy Carrero MD 01/29/2011 Office visit Holden Atwood MD 01/21/2011 Hospital Nancy Carrero MD 01/21/2011 [facility] Nancy Carrero MD 12/03/2010 Office visit Holden Atwood MD 10/29/2010 Office visit Holden Atwood MD 07/17/2010 Office visit Holden Atwood MD 07/03/2010 Office visit Holden Atwood MD 06/27/2010 Hospital Nancy Carrero MD 05/28/2010 Nurse visit Holden Atwood MD 05/23/2010 Office visit Chante Thompson COMPUTER NUMERICAL CONTROL OPERATOR 01/25/2010 Office visit Holden Atwood MD 08/22/2009 Office visit Holden Atwood MD 08/14/2009 Laboratory Ricci Marte MD 06/14/2009 Office visit Mynor Gabriel DO
--- OUTSIDE RECORDS SUMMARY | 2017-04-25 18:15 | XMS REPORT | Clinical Summary ---
Author Author User, BRITT Macias [place] [facility] Address Unknown Phone Allergies, Adverse Reactions, [...] TABS 1-2 TABS PO QHS TIZANIDINE HCL 63417201930 Active Nohemi Swartz ZYRTEC 10 MG TAB 1 PO QD CETIRIZINE HCL Active Yuliamilagros Cruz KEFLEX 500 MG CAP 1 PO TID for 7 days CEPHALEXIN 57010626498 No Longer Active Yulia Ny Cruz BYDUREON 2 MG SUSR 1 injection weekly EXENATIDE 01723327013 Active Nohemi Swartz TOPAMAX 25 MG TABS 1 PO BID TOPIRAMATE 56793653503 No Longer Active Yuliamilagros Cruz FIORINAL 325-50-40 MG CAP 1 PO TID prn ASPIRIN- CAFFEINE-BUTALBITAL 19992007877 No Longer Active Yuliamilagros Cruz FLUTICASONE PROPIONATE 50 MCG/ACT SUSP 2 Puffs Each Nostril Daily FLUTICASONE PROPIONATE 75803083691 Active Yulia Cruz METOPROLOL TARTRATE 25 MG TABS 1 PO BID METOPROLOL TARTRATE 90450825070 No Longer Active Yulia Cruz DINA ALLERGY 180 MG TABS 1 po daily FEXOFENADINE HCL 01408670271 No Longer Active Yulia Cruz DOXAZOSIN MESYLATE 4 MG TABS 1 PO QPM DOXAZOSIN MESYLATE 60080497343 Active Nohemi Swartz DEMADEX 20 MG TABS 1/2 PO daily TORSEMIDE 55173335975 No Longer Active Yuliamilagros Cruz TORSEMIDE 10 MG TABS 1 pO DAILY TORSEMIDE 93858652877 Active Nohemi Swartz [employer] TEST DISK Test BS BID DX: Diabetes GLUCOSE BLOOD 37760379025 Active Nohemi Swartz CATAPRES 0.1 MG TABS 1 PO BID CLONIDINE HCL 00626006905 No Longer Active Yulia Ny Cruz EPLERENONE 50 MG TABS 1 PO daily EPLERENONE 01231378088 No Longer Active Yulia Ny Cruz ALDACTONE 25 MG TABS 1 PO daily SPIRONOLACTONE 50521849964 Active Nohemi Swartz HYDROCHLOROTHIAZIDE 25 MG TAB 1 PO daily HYDROCHLOROTHIAZIDE 97049236271 No Longer Active Yulia Ny Cruz OMEPRAZOLE 20 MG CPDR 1 PO BID OMEPRAZOLE 93346563913 No Longer Active Yulia Ny Cruz CARAFATE 1 GM TABS 1 PO 30 minutes before meals and at bedtime SUCRALFATE 05209616451 No Longer Active Yulia Ny Cruz ALLOPURINOL 300 MG TABS 1 PO daily ALLOPURINOL 42830523147 No Longer Active Yulia Ny Cruz BENICAR 20 MG TABS 1 PO daily OLMESARTAN MEDOXOMIL 83777019728 No Longer Active Yulia Ny Cruz BENTYL 10 MG CAP 1 PO QID prn abdominal pain DICYCLOMINE HCL 92860072292 No Longer Active Yulia Ny Cruz VITAMIN D (ERGOCALCIFEROL) 17452 UNIT CAPS 1 PO every week ERGOCALCIFEROL 57420876357 Active Nohemi Swartz OCUFLOX 0.3 % SOLN 2 drops left ear BID for 5 days OFLOXACIN 38438010835 No Longer Active Yulia Ny Cruz KEFLEX 500 MG CAP 1 PO TID for 7 days CEPHALEXIN 14214311036 No Longer Active Yulia Ny Cruz OMEPRAZOLE 20 MG CPDR 1 PO BID OMEPRAZOLE 93183221082 No Longer Active Yulia Ny Cruz PREDNISONE 20 MG TAB 2 pills at once for 2 days then 1 pill daily for 2 days PREDNISONE 27853859039 No Longer Active Yulia Ny Roachner NORCO 10-325 MG TABS 1 PO TID prn HYDROCODONE-ACETAMINOPHEN 73035991044 Active Yulia Alejandra Cruz ULTRAM 50 MG TABS 1 PO TID prn pain TRAMADOL HCL 04990365548 No Longer Active Yuliamilagros Jaqueze Anthony K-DUR 10 MEQ TAB CR 1 PO BID prn POTASSIUM CHLORIDE No Longer Active Yuliamilagros Jaqueze Anthony LASIX 20 MG TAB 1 PO daily prn FUROSEMIDE 45662715599 No Longer Active Yulia Ny Anthony EPIPEN 2-AYAH 0.3 MG/0.3ML AYDIN as directed EPINEPHRINE 62089684597 Active Yulia Alejandra Anthony NORVASC 10 MG TABS 1 PO daily AMLODIPINE BESYLATE 58598054889 Active Nohemi Swartz CLARITIN 10 MG TAB 1 PO daily LORATADINE 87958929689 No Longer Active Yulia Jaqueze Anthony Immunizations [...] mg/dL Encounters Code Encounter Date Provider Facility CPT-42501 Ofc Vst, Est Level IV 19:28:17 MANAGER EMPLOYMENT Yulia Cruz, DO, FACP CPT-10576 Ofc Vst, Est Level III 13:16:58 CDT Yulia Cruz, DO, FACP CPT-00950 Ofc Vst, Est Level IV 17:21:21 CDT Yulia Cruz, DO, FACP CPT-66791 Ofc Vst, Est Level III 15:17:17 CDT Yulia Cruz, DO, FACP CPT-44236 Ofc Vst, Est Level III 15:56:42 CDT Yulia Cruz, DO, FACP CPT-63195 Ofc Vst, Est Level IV 20:17:52 CDT Yulia Cruz, DO, FACP CPT-96707 Ofc Vst, Est Level IV 16:24:31 CDT Yulia Ny Cruz [place] [facility] CPT-84108 Ofc Vst, Est Level IV 19:42:41 MANAGER EMPLOYMENT Yulia Ny Del Rio Anthony, DO, FACP CPT-14664 Ofc Vst, Est Level III 12:16:29 CDT Yulia Ny Del Rio Anthony, DO, FACP CPT-40429 Ofc Vst, Est Level III 14:15:44 MANAGER EMPLOYMENT Yulia Ny Del Rio Anthony, DO, FACP CPT-98525 Ofc Vst, Est Level II 13:59:22 MANAGER EMPLOYMENT Yulia Ny Del Rio Anthony, DO, FACP CPT-18861 Ofc Vst, Est Level III 16:44:22 CDT Yulia Ny Del Rio Anthony, DO, FACP CPT-44379 Ofc Vst, Est Level IV 15:56:20 CDT [facility] Ny Cruz [place] [facility] CPT-14191 Ofc Vst, Est Level IV 15:37:15 CDT [facility] OFFICE CPT-80859 Ofc Vst, Est Level III 16:02:15 MANAGER EMPLOYMENT Yulia Del Rio Anthony, DO, FACP CPT-24842 Ofc Vst, Est Level IV 16:07:44 MANAGER EMPLOYMENT [facility] Ny [facility] [place] [facility] CPT-54480 Ofc Vst, Est Level III 15:08:39 MANAGER EMPLOYMENT [facility] Ny [facility] [place] [facility] CPT-56792 Ofc Vst, Est Level V 15:13:27 CDT Yulia Ny Del Rio Anthony, DO, FACP CPT-46874 Ofc Vst, New Level IV 17:01:35 CDT [facility] Procedures Code Procedure Name Date Entry Date Standard Description CPT-70467 Preventive, Est, (40-64) 19:33:45 CDT CPT-58223 EKG w/ Interpretation 16:24:31 CDT CPT-22447 Preventive, Est, (40-64) 12:55:40 MANAGER EMPLOYMENT CPT-29146 EKG w/ Interpretation 19:42:41 MANAGER EMPLOYMENT CPT-74637 Preventive, Est, (40-64) 20:10:48 CDT
--- OUTSIDE RECORDS SUMMARY | 2017-04-25 18:16 | XMS REPORT | Clinical Summary ---
Author Author User, BRITT Macias [place] [facility] Address Unknown Phone Allergies, Adverse Reactions, [...] health care facility BRADYCARDIA 427.89 Active Yulia Crzu Other specified cardiac dysrhythmias HEADACHE 784.0 Active Yulia Cruz Headache CELLULITIS 682.9 Resolved Yulia Cruz Cellulitis and abscess of unspecified sites HEALTH SCREENING V70.0 Active Yulia Cruz Routine general medical examination at a health care facility Medication List Medication Instructions Start Date Stop Date Generic Name NDC Status Provider Patient Instruction TIZANIDINE HCL 2 MG TABS 1-2 TABS PO QHS TIZANIDINE HCL 30920686478 Active Nohemi Swartz ZYRTEC 10 MG TAB 1 PO QD CETIRIZINE HCL Active Yulia Cruz KEFLEX 500 MG CAP 1 PO TID for 7 days CEPHALEXIN 33011554913 No Longer Active Yuliamilagros Cruz BYDUREON 2 MG SUSR 1 injection weekly EXENATIDE 59652956123 Active Nohemi Swartz TOPAMAX 25 MG TABS 1 PO BID TOPIRAMATE 26222065139 No Longer Active Yulia Cruz FIORINAL 325-50-40 MG CAP 1 PO TID prn ASPIRIN- CAFFEINE-BUTALBITAL 65188120232 No Longer Active Yulia Cruz FLUTICASONE PROPIONATE 50 MCG/ACT SUSP 2 Puffs Each Nostril Daily FLUTICASONE PROPIONATE 02073303945 Active Yulia Cruz METOPROLOL TARTRATE 25 MG TABS 1 PO BID METOPROLOL TARTRATE 60441756697 No Longer Active Yulia Cruz DINA ALLERGY 180 MG TABS 1 po daily FEXOFENADINE HCL 16041683827 No Longer Active Yulia Cruz DOXAZOSIN MESYLATE 4 MG TABS 1 PO QPM DOXAZOSIN MESYLATE 50627827875 Active Nohemi Swartz DEMADEX 20 MG TABS 1/2 PO daily TORSEMIDE 05701579606 No Longer Active Yulia Cruz TORSEMIDE 10 MG TABS 1 pO DAILY TORSEMIDE 63959395545 Active Nohemi Swartz [employer] TEST DISK Test BS BID DX: Diabetes GLUCOSE BLOOD 54014821919 Active Nohemi Swartz CATAPRES 0.1 MG TABS 1 PO BID CLONIDINE HCL 32574768937 No Longer Active Yulia Ny Cruz EPLERENONE 50 MG TABS 1 PO daily EPLERENONE 42800698251 No Longer Active Yulia Ny Cruz ALDACTONE 25 MG TABS 1 PO daily SPIRONOLACTONE 06056642465 Active Nohemi Swartz HYDROCHLOROTHIAZIDE 25 MG TAB 1 PO daily HYDROCHLOROTHIAZIDE 70342651957 No Longer Active Yulia Ny Cruz OMEPRAZOLE 20 MG CPDR 1 PO BID OMEPRAZOLE 81902007622 No Longer Active Yulia Ny Cruz CARAFATE 1 GM TABS 1 PO 30 minutes before meals and at bedtime SUCRALFATE 81961298079 No Longer Active Yulia Ny Cruz ALLOPURINOL 300 MG TABS 1 PO daily ALLOPURINOL 02809794439 No Longer Active Yulia Ny Cruz BENICAR 20 MG TABS 1 PO daily OLMESARTAN MEDOXOMIL 92959794473 No Longer Active Yulia Ny Cruz BENTYL 10 MG CAP 1 PO QID prn abdominal pain DICYCLOMINE HCL 09882734340 No Longer Active Yulia Ny Cruz VITAMIN D (ERGOCALCIFEROL) 74954 UNIT CAPS 1 PO every week ERGOCALCIFEROL 48171860242 Active Nohemi Swartz OCUFLOX 0.3 % SOLN 2 drops left ear BID for 5 days OFLOXACIN 48445338772 No Longer Active Yulia Ny Cruz KEFLEX 500 MG CAP 1 PO TID for 7 days CEPHALEXIN 94476276013 No Longer Active Yulia Ny Cruz OMEPRAZOLE 20 MG CPDR 1 PO BID OMEPRAZOLE 31998235923 No Longer Active Yulia Ny Cruz PREDNISONE 20 MG TAB 2 pills at once for 2 days then 1 pill daily for 2 days PREDNISONE 74510348285 No Longer Active Yulia Ny Cruz NORCO 10-325 MG TABS 1 PO TID prn HYDROCODONE-ACETAMINOPHEN 59449739848 Active Yulia Cruz ULTRAM 50 MG TABS 1 PO TID prn pain TRAMADOL HCL 44346245129 No Longer Active Yulia Alejandra Anthony K-DUR 10 MEQ TAB CR 1 PO BID prn POTASSIUM CHLORIDE No Longer Active Yulia Roachner LASIX 20 MG TAB 1 PO daily prn FUROSEMIDE 63620410915 No Longer Active Yulia Roachner EPIPEN 2-AYAH 0.3 MG/0.3ML AYDIN as directed EPINEPHRINE 00157558112 Active Yulia Roachner NORVASC 10 MG TABS 1 PO daily AMLODIPINE BESYLATE 33739504367 Active Nohemi Mcelroytis CLARITIN 10 MG TAB 1 PO daily LORATADINE 54157868102 No Longer Active Yulia Alejandra Anthony Immunizations [...] mg/dL Encounters Code Encounter Date Provider Facility CPT-47468 Ofc Vst, Est Level IV 19:28:17 [employer] Yulia Cruz DO, FACP CPT-67730 Ofc Vst, Est Level III 13:16:58 CDT Yulia Bender S Anthony, DO, FACP CPT-05242 Ofc Vst, Est Level IV 17:21:21 CDT Yulia Ny Del Rio Anthony, DO, FACP CPT-09856 Ofc Vst, Est Level III 15:17:17 CDT Yulia Ny Del Rio Anthony, DO, FACP CPT-40158 Ofc Vst, Est Level III 15:56:42 CDT Yulia Ny Del Rio Anthony, DO, FACP CPT-90791 Ofc Vst, Est Level IV 20:17:52 CDT Yulia Ny Del Rio Anthony, DO, FACP CPT-08487 Ofc Vst, Est Level IV 16:24:31 CDT Yuliamilagros Cruz [facility] CPT-22309 Ofc Vst, Est Level IV 19:42:41 [employer] Yuliamilagros Del Rio Anthony, DO, FACP CPT-79060 Ofc Vst, Est Level III 12:16:29 CDT Yuliamilagros Del Rio Anthony, DO, FACP CPT-72656 Ofc Vst, Est Level III 14:15:44 [employer] Yulia Del Rio Anthony, DO, FACP CPT-04665 Ofc Vst, Est Level II 13:59:22 [employer] Yuliamilagros Del Rio Anthony, DO, FACP CPT-12167 Ofc Vst, Est Level III 16:44:22 CDT Yuliamilagros Del Rio Anthony, DO, FACP CPT-84021 Ofc Vst, Est Level IV 15:56:20 CDT Yuliamilagros Cruz [facility] CPT-41874 Ofc Vst, Est Level IV 15:37:15 CDT Yulia Ny Cruz [facility] CPT-32081 Ofc Vst, Est Level III 16:02:15 [employer] Yulia Ny Treadwellmilagros Cruz DO, FACP CPT-51665 Ofc Vst, Est Level IV 16:07:44 [employer] [facility] Ny [facility] OFFICE CPT-92761 Ofc Vst, Est Level III 15:08:39 [employer] [facility]ICE CPT-92237 Ofc Vst, Est Level V 15:13:27 CDT [facility] Ny Cruz Yulia Cruz DO, FACP CPT-93489 Ofc Vst, New Level IV 17:01:35 CDT [facility] Ny [facility] Procedures Code Procedure Name Date Entry Date Standard Description CPT-29025 Preventive, Est, (40-64) 19:33:45 CDT CPT-60797 EKG w/ Interpretation 16:24:31 CDT CPT-99341 Preventive, Est, (40-64) 12:55:40 [employer] CPT-98631 EKG w/ Interpretation 19:42:41 [employer] CPT-97388 Preventive, Est, (40-64) 20:10:48 CDT
--- OUTSIDE RECORDS SUMMARY | 2017-04-25 18:16 | XMS REPORT | Clinical Summary ---
Author Author User, BRITT Organization [place] [facility] Address Unknown Phone Allergies, Adverse Reactions, [...] TABS 1-2 TABS PO QHS TIZANIDINE HCL 91066107851 Active Nohemi Swartz ZYRTEC 10 MG TAB 1 PO QD CETIRIZINE HCL Active Yuliamilagros Cruz KEFLEX 500 MG CAP 1 PO TID for 7 days CEPHALEXIN 45187106335 No Longer Active Yulia Ny Cruz BYDUREON 2 MG SUSR 1 injection weekly EXENATIDE 66885044002 Active Nohemi Swartz TOPAMAX 25 MG TABS 1 PO BID TOPIRAMATE 82919439428 No Longer Active Yuliamilagros Cruz FIORINAL 325-50-40 MG CAP 1 PO TID prn ASPIRIN- CAFFEINE-BUTALBITAL 97806199533 No Longer Active Yuliamilagros Cruz FLUTICASONE PROPIONATE 50 MCG/ACT SUSP 2 Puffs Each Nostril Daily FLUTICASONE PROPIONATE 90348928245 Active Yuliamilagros Cruz METOPROLOL TARTRATE 25 MG TABS 1 PO BID METOPROLOL TARTRATE 81637765181 No Longer Active Yulia Cruz DINA ALLERGY 180 MG TABS 1 po daily FEXOFENADINE HCL 46070419695 No Longer Active Yuliamilagros Cruz DOXAZOSIN MESYLATE 4 MG TABS 1 PO QPM DOXAZOSIN MESYLATE 55997167500 Active Nohemi Swartz DEMADEX 20 MG TABS 1/2 PO daily TORSEMIDE 20571475551 No Longer Active Yuliamilagros Cruz TORSEMIDE 10 MG TABS 1 pO DAILY TORSEMIDE 20571998631 Active Nohemi Swartz [employer] TEST DISK Test BS BID DX: Diabetes GLUCOSE BLOOD 64469086099 Active Nohemi Swartz CATAPRES 0.1 MG TABS 1 PO BID CLONIDINE HCL 38903998501 No Longer Active Yulia Ny Cruz EPLERENONE 50 MG TABS 1 PO daily EPLERENONE 66292849027 No Longer Active Yulia Ny Cruz ALDACTONE 25 MG TABS 1 PO daily SPIRONOLACTONE 86293162626 Active Nohemi Swartz HYDROCHLOROTHIAZIDE 25 MG TAB 1 PO daily HYDROCHLOROTHIAZIDE 03489631998 No Longer Active Yulia Ny Cruz OMEPRAZOLE 20 MG CPDR 1 PO BID OMEPRAZOLE 46891003697 No Longer Active Yulia Ny Cruz CARAFATE 1 GM TABS 1 PO 30 minutes before meals and at bedtime SUCRALFATE 09419567678 No Longer Active Yulia Ny Cruz ALLOPURINOL 300 MG TABS 1 PO daily ALLOPURINOL 78780927725 No Longer Active Yulia Ny Cruz BENICAR 20 MG TABS 1 PO daily OLMESARTAN MEDOXOMIL 73350272168 No Longer Active Yulia Ny Cruz BENTYL 10 MG CAP 1 PO QID prn abdominal pain DICYCLOMINE HCL 61648256979 No Longer Active Yulia Ny Cruz VITAMIN D (ERGOCALCIFEROL) 45739 UNIT CAPS 1 PO every week ERGOCALCIFEROL 09227562654 Active Nohemijanet Swartz OCUFLOX 0.3 % SOLN 2 drops left ear BID for 5 days OFLOXACIN 82641097216 No Longer Active Yulia Ny Cruz KEFLEX 500 MG CAP 1 PO TID for 7 days CEPHALEXIN 58254703797 No Longer Active Yulia Ny Cruz OMEPRAZOLE 20 MG CPDR 1 PO BID OMEPRAZOLE 05283488681 No Longer Active Yulia Ny Cruz PREDNISONE 20 MG TAB 2 pills at once for 2 days then 1 pill daily for 2 days PREDNISONE 34865458132 No Longer Active Yulia Ny Cruz NORCO 10-325 MG TABS 1 PO TID prn HYDROCODONE-ACETAMINOPHEN 71651169634 Active Yulia Alejandra Anthony ULTRAM 50 MG TABS 1 PO TID prn pain TRAMADOL HCL 83197907217 No Longer Active Yulia Cruz K-DUR 10 MEQ TAB CR 1 PO BID prn POTASSIUM CHLORIDE No Longer Active Yuliamilagros Cruz LASIX 20 MG TAB 1 PO daily prn FUROSEMIDE 28284610153 No Longer Active Yuliamilagros Cruz EPIPEN 2-AYAH 0.3 MG/0.3ML AYDIN as directed EPINEPHRINE 53132019296 Active Yulia Ny Anthony NORVASC 10 MG TABS 1 PO daily AMLODIPINE BESYLATE 53528352552 Active Nohemi Swartz CLARITIN 10 MG TAB 1 PO daily LORATADINE 59834040607 No Longer Active Yulia Cruz Immunizations Vaccine [...] mg/dL Encounters Code Encounter Date Provider Facility CPT-80463 Ofc Vst, Est Level IV 19:28:17 FLOAT PHLEBOTOMIST Yulia Cruz DO, FACP CPT-82572 Ofc Vst, Est Level III 13:16:58 CDT Yulia Ny Cruz Yulia S Cruz, DO, FACP CPT-53666 Ofc Vst, Est Level IV 17:21:21 CDT Yulia Ny Del Rio Anthony, DO, FACP CPT-87744 Ofc Vst, Est Level III 15:17:17 CDT Yulia Ny Del Rio Anthony, DO, FACP CPT-49714 Ofc Vst, Est Level III 15:56:42 CDT Yulia Ny Del Rio Anthony, DO, FACP CPT-39572 Ofc Vst, Est Level IV 20:17:52 CDT Yulia Ny Del Rio Anthony, DO, FACP CPT-74568 Ofc Vst, Est Level IV 16:24:31 CDT Yuliamilagros Cruz [facility] CPT-97345 Ofc Vst, Est Level IV 19:42:41 FLOAT PHLEBOTOMIST Yuliamilagros Del Rio Anthony, DO, FACP CPT-79132 Ofc Vst, Est Level III 12:16:29 CDT Yulia Ny Del Rio Anthony, DO, FACP CPT-15302 Ofc Vst, Est Level III 14:15:44 FLOAT PHLEBOTOMIST Yulia Del Rio Anthony, DO, FACP CPT-78679 Ofc Vst, Est Level II 13:59:22 FLOAT PHLEBOTOMIST Yuliamilagros Del Rio Anthony, DO, FACP CPT-82516 Ofc Vst, Est Level III 16:44:22 CDT Yuliamilagros Del Rio Anthony, DO, FACP CPT-63759 Ofc Vst, Est Level IV 15:56:20 CDT Yuliamilagros Cruz [facility] CPT-28002 Ofc Vst, Est Level IV 15:37:15 CDT Yuliamilagros Alejandra Cruz [facility] CPT-68937 Ofc Vst, Est Level III 16:02:15 FLOAT PHLEBOTOMIST Yulia Ny Cruz Yulia Cruz DO, FACP CPT-43220 Ofc Vst, Est Level IV 16:07:44 [facility] PH[facility]OTOM[facility] CPT-16999 Ofc Vst, Est Level III 15:08:39 FLOAT PHLEBOTOMIST [facility] CPT-07133 Ofc Vst, Est Level V 15:13:27 CDT [facility] Ny Cruz Yulia Cruz DO, FACP CPT-52794 Ofc Vst, New Level IV 17:01:35 CDT [facility] Ny [facility] Procedures Code Procedure Name Date Entry Date Standard Description CPT-29907 Preventive, Est, (40-64) 19:33:45 CDT CPT-87047 EKG w/ Interpretation 16:24:31 CDT CPT-03510 Preventive, Est, (40-64) 12:55:40 FLOAT PHLEBOTOMIST CPT-22198 EKG w/ Interpretation 19:42:41 FLOAT PHLEBOTOMIST CPT-49797 Preventive, Est, (40-64) 20:10:48 CDT
--- OUTSIDE RECORDS SUMMARY | 2017-04-25 18:17 | XMS REPORT | Clinical Summary ---
Author Author User, BRITT Macias [place] [facility] Address Unknown Phone Allergies, Adverse Reactions, [...] TABS 1-2 TABS PO QHS TIZANIDINE HCL 84944399506 Active Nohemi Swartz ZYRTEC 10 MG TAB 1 PO QD CETIRIZINE HCL Active Yuliamilagros Cruz KEFLEX 500 MG CAP 1 PO TID for 7 days CEPHALEXIN 32071127214 No Longer Active Yulia Ny Cruz BYDUREON 2 MG SUSR 1 injection weekly EXENATIDE 54798391078 Active Nohemi Swartz TOPAMAX 25 MG TABS 1 PO BID TOPIRAMATE 61946080557 No Longer Active Yuliamilagros Cruz FIORINAL 325-50-40 MG CAP 1 PO TID prn ASPIRIN- CAFFEINE-BUTALBITAL 32329269310 No Longer Active Yuliamilagros Cruz FLUTICASONE PROPIONATE 50 MCG/ACT SUSP 2 Puffs Each Nostril Daily FLUTICASONE PROPIONATE 02675767496 Active Yulia Cruz METOPROLOL TARTRATE 25 MG TABS 1 PO BID METOPROLOL TARTRATE 85020810079 No Longer Active Yulia Cruz DINA ALLERGY 180 MG TABS 1 po daily FEXOFENADINE HCL 71970231613 No Longer Active Yulia Cruz DOXAZOSIN MESYLATE 4 MG TABS 1 PO QPM DOXAZOSIN MESYLATE 78586188153 Active Nohemi Swartz DEMADEX 20 MG TABS 1/2 PO daily TORSEMIDE 28305670218 No Longer Active Yuliamilagros Cruz TORSEMIDE 10 MG TABS 1 pO DAILY TORSEMIDE 35243021314 Active Nohemi Swartz [employer] TEST DISK Test BS BID DX: Diabetes GLUCOSE BLOOD 46399481312 Active Nohemi Swartz CATAPRES 0.1 MG TABS 1 PO BID CLONIDINE HCL 86750362051 No Longer Active Yulia Ny Cruz EPLERENONE 50 MG TABS 1 PO daily EPLERENONE 35014770318 No Longer Active Yulia Ny Cruz ALDACTONE 25 MG TABS 1 PO daily SPIRONOLACTONE 76702568839 Active Nohemi Swartz HYDROCHLOROTHIAZIDE 25 MG TAB 1 PO daily HYDROCHLOROTHIAZIDE 44225257704 No Longer Active Yulia Ny Cruz OMEPRAZOLE 20 MG CPDR 1 PO BID OMEPRAZOLE 52296812323 No Longer Active Yulia Ny Cruz CARAFATE 1 GM TABS 1 PO 30 minutes before meals and at bedtime SUCRALFATE 41259912835 No Longer Active Yulia Ny Cruz ALLOPURINOL 300 MG TABS 1 PO daily ALLOPURINOL 66381662697 No Longer Active Yulia Ny Cruz BENICAR 20 MG TABS 1 PO daily OLMESARTAN MEDOXOMIL 43735421598 No Longer Active Yulia Ny Cruz BENTYL 10 MG CAP 1 PO QID prn abdominal pain DICYCLOMINE HCL 64658544341 No Longer Active Yulia Ny Cruz VITAMIN D (ERGOCALCIFEROL) 39162 UNIT CAPS 1 PO every week ERGOCALCIFEROL 92921769249 Active Nohemi Swartz OCUFLOX 0.3 % SOLN 2 drops left ear BID for 5 days OFLOXACIN 44557247393 No Longer Active Yulia Ny Cruz KEFLEX 500 MG CAP 1 PO TID for 7 days CEPHALEXIN 34690348626 No Longer Active Yulia Ny Cruz OMEPRAZOLE 20 MG CPDR 1 PO BID OMEPRAZOLE 56820817361 No Longer Active Yulia Ny Cruz PREDNISONE 20 MG TAB 2 pills at once for 2 days then 1 pill daily for 2 days PREDNISONE 15155556580 No Longer Active Yulia Ny Roachner NORCO 10-325 MG TABS 1 PO TID prn HYDROCODONE-ACETAMINOPHEN 62185200965 Active Yulia Alejandra Cruz ULTRAM 50 MG TABS 1 PO TID prn pain TRAMADOL HCL 09049912317 No Longer Active Yuliamilagros Jauqeze Anthony K-DUR 10 MEQ TAB CR 1 PO BID prn POTASSIUM CHLORIDE No Longer Active Yuliamilagros Jaqueze Anthony LASIX 20 MG TAB 1 PO daily prn FUROSEMIDE 10877029055 No Longer Active Yulia Ny Anthony EPIPEN 2-AYAH 0.3 MG/0.3ML AYDIN as directed EPINEPHRINE 93231897908 Active Yulia Alejandra Anthony NORVASC 10 MG TABS 1 PO daily AMLODIPINE BESYLATE 35303640910 Active Nohemi Swartz CLARITIN 10 MG TAB 1 PO daily LORATADINE 59180197204 No Longer Active Yulia Jaqueze Anthony Immunizations [...] Estimated Glomerular Filtration Rate (calc) >60 mL/min/1.73m2 albumin, serum 4.3 g/dL sodium, serum 139 mmol/L triglyceride, serum, fasting 88 mg/dL bilirubin, serum, total 0.7 mg/dL alanine aminotransferase (SGPT), serum 41 U/L aspartate aminotransferase (SGOT), serum 19 U/L protein, total, serum 6.9 g/dL potassium, serum 4.1 mmol/L hemoglobin A1C, blood, as % of total hemoglobin 7.1 % creatinine, serum 0.9 mg/dL carbon dioxide, venous blood 21 mmol/L cholesterol, serum 151 mg/dL chloride, serum 107 mmol/L calcium, serum 9.2 mg/dL urea nitrogen, blood 16 mg/dL alkaline phosphatase, serum 55 U/L glucose, plasma fasting 164 mg/dL Clinical Lists Update: CBC,CMP,Chol,Trig,HgA1c,Microalbumin - Hematology erythrocyte (RBC) count 4.92 10*6/mm3 platelet count 216 10*3/mm3 hemoglobin, blood 14.6 g/dL hematocrit, blood 44.0 % red blood cell distribution width 13.8 % mean corpuscular volume, RBC 89 fL leukocyte count, blood 6.3 10*3/mm3 Clinical Lists Update: CMP,FLP,HGA1C - Chemistry albumin, [...] Clinical Lists Update: ER LABS - Chemistry Estimated Glomerular Filtration Rate (calc) >60 mL/min/1.73m2 glucose, plasma fasting 169 mg/dL sodium, serum 140 mmol/L bilirubin, serum, total 0.7 mg/dL alanine aminotransferase (SGPT), serum 34 U/L aspartate aminotransferase (SGOT), serum 20 U/L protein, total, serum 7.5 g/dL potassium, serum 3.9 mmol/L creatinine, serum 0.87 mg/dL carbon dioxide, venous blood 23 mmol/L chloride, serum 105 mmol/L calcium, serum 9.2 mg/dL urea nitrogen, blood 16 mg/dL alkaline phosphatase, serum 53 U/L albumin, serum 4.6 g/dL Clinical Lists Update: ER LABS - Hematology erythrocyte (RBC) count 5.16 10*6/mm3 leukocyte count, blood 7.0 10*3/mm3 mean corpuscular volume, RBC 86 fL red blood cell distribution width 13.7 % platelet count 256 10*3/mm3 hemoglobin, blood 15.4 g/dL hematocrit, blood 44 % Clinical Lists Update: ER LABS - Urinalysis hyaline casts, urine none /[LPF] epithelial cells, urine rare /[LPF] mucus on urinalysis neg blood in urine (hemoglobin) by dipstick neg bacteria, urine microscopy none RBC urine by microscopy none WBC urine on microscopy none {Cells}/[HPF] appearance, urine Clear Yellow urobilinogen, urine, semiquantitative (dipstick) normal specific gravity, urine 1.015 pH, urine, semiquantitative 5 nitrite, urine, semiquantitative neg ketones, urine, by test strip neg bilirubin, urine neg glucose, urine, semiquantitative neg protein, urine, semiquantitative (dipstick) neg Clinical Lists Update: Microalbumin - Urinalysis microalbumin, urine, semiquantitative 0.6 mg/dL Encounters Code Encounter Date Provider Facility CPT-26160 Ofc Vst, Est Level IV 19:28:17 CERTIFIED EMERGENCY VEHICLE TECHNICIAN Yulia Cruz DO, FACP CPT-89972 Ofc Vst, Est Level III 13:16:58 CDT Yulia Ny Del Rio Cruz, DO, FACP CPT-67873 Ofc Vst, Est Level IV 17:21:21 CDT Yulia Ny Del Rio Cruz, DO, FACP CPT-78169 Ofc Vst, Est Level III 15:17:17 CDT Yulia Ny Del Rio Cruz, DO, FACP CPT-89104 Ofc Vst, Est Level III 15:56:42 CDT Yulia Ny Del Rio Cruz, DO, FACP CPT-64319 Ofc Vst, Est Level IV 20:17:52 CDT Yulia Ny Del Rio Anthony, DO, FACP CPT-81174 Ofc Vst, Est Level IV 16:24:31 CDT Yulia Ny Cruz [facility] CPT-66028 Ofc Vst, Est Level IV 19:42:41 CERTIFIED EMERGENCY VEHICLE TECHNICIAN Yulia Ny Del Rio Cruz, DO, FACP CPT-56680 Ofc Vst, Est Level III 12:16:29 CDT Yulia Ny Del Rio Cruz, DO, FACP CPT-39179 Ofc Vst, Est Level III 14:15:44 CERTIFIED EMERGENCY VEHICLE TECHNICIAN Yuliamilagros Del Rio Anthony, DO, FACP CPT-90193 Ofc Vst, Est Level II 13:59:22 CERTIFIED EMERGENCY VEHICLE TECHNICIAN Yulia Ny Del Rio Cruz, DO, FACP CPT-49972 Ofc Vst, Est Level III 16:44:22 CDT Yulia Ny Bender S Cruz, DO, FACP CPT-22460 Ofc Vst, Est Level IV 15:56:20 CDT Yulia Ny Anthony [facility] CPT-13231 Ofc Vst, Est Level IV 15:37:15 CDT Yulia Ny Cruz [facility] CPT-70703 Ofc Vst, Est Level III 16:02:15 CERTIFIED EMERGENCY VEHICLE TECHNICIAN [facility] Ny Cruz Yulia Cruz DO, FACP CPT-51876 Ofc Vst, Est Level IV 16:07:44 CERTIFIED EMERGENCY VEHICLE TECHNICIAN [facility] CPT-54810 Ofc Vst, Est Level III 15:08:39 CERTIFIED EMERGENCY VEHICLE TECHNICIAN [facility] CPT-20862 Ofc Vst, Est Level V 15:13:27 CDT [facility], F[facility] CPT-92867 Ofc Vst, New Level IV 17:01:35 CDT [facility] Procedures Code Procedure Name Date Entry Date Standard Description CPT-99938 Preventive, Est, (40-64) 19:33:45 CDT CPT-47271 EKG w/ Interpretation 16:24:31 CDT CPT-32506 Preventive, Est, (40-64) 12:55:40 CERTIFIED EMERGENCY VEHICLE TECHNICIAN CPT-73831 EKG w/ Interpretation 19:42:41 CERTIFIED EMERGENCY VEHICLE TECHNICIAN CPT-06889 Preventive, Est, (40-64) 20:10:48 CDT
--- NOTE | 2017-04-25 18:20 | ED Chest Pain ---
General Stated Complaint: CP/"HEART POUNDING" Source: patient Exam Limitations: no limitations History of Present Illness Time seen by provider: 18:17 Initial Comments To ER with reports of chest pain, lightheadedness and lethargy. The chest pain has been constant in nature since its onset at 2 p.m. today while at rest. It does not radiate. No associated nausea or shortness of breath. He has been evaluated at [facility] for this several weeks ago and has since followed up with Dr. Coker. Dr. Coker prescribed nitroglycerin and scheduled him for a stress test which has not yet been done. Patient took one nitroglycerin at about 530 this evening for pain in his chest rated at 9 out of 10. This reduced his pain to 6 out of 10. He reports that his heart rate just prior to this read 41 on his wrist blood pressure cuff. He is a lifetime nonsmoker but he is a type II diabetic controlled with oral medications, stage II chronic kidney disease, and hypertension. He does report to me that he had a clean catheter at [facility] in [place] in 2010. Timing/Duration: constant Severity/Quality: moderate Radiation: no radiation Prior CP/Workup: cardiac cath ASA po SUBMARINE WORKER: No NTG SL SUBMARINE WORKER: No Allergies and Home Medications Allergies Coded Allergies: Penicillins (Verified Allergy, Severe, Rash, 06/01/11) diclofenac sodium (Unverified Allergy, Unknown, 12/13/14) lidocaine HCl (Unverified Allergy, Unknown, LOW PULSE, 12/13/14) Home Medications Amlodipine Besylate 10 Mg Tablet, 5 MG PO DAILY, (Reported) Doxazosin Mesylate 4 Mg Tablet, 4 MG PO HS, (Reported) Epinephrine 0.3 Mg/0.3/Syringe Pen.injctr, 0.3 MG IM PRN, (Reported) Ergocalciferol 50,000 Unit Capsule, 50,000 UNIT PO WEEKLY, (Reported) Fexofenadine HCl 180 Mg Tablet, 180 MG PO DAILY, (Reported) Fluticasone Propionate 9.9 Ml [place].susp, 9.9 ML NS DAILY, (Reported) Glimepiride 1 Mg Tablet, 1 MG PO DAILY, (Reported) Hydrocodone Bit/Acetaminophen 1 Each Tablet, 1 EACH PO Q 4 - 6 HRS PRN, ( Reported) Methylprednisolone 4 Mg Tab.ds.pk, 4 MG PO UD, #1 Prescribed by: JORDAN GRANADOS on 05/17/16 1130 Montelukast Sodium 10 Mg Tablet, 10 MG PO DAILY, (Reported) Omeprazole 40 Mg Capsule.dr, 40 MG PO DAILY, (Reported) Oxycodone HCl/Acetaminophen 1 Each Tablet, 1 EACH PO Q6H PRN for PAIN, #14 Prescribed by: JORDAN GRANADOS on 05/17/16 1130 Potassium Chloride 10 Meq Tablet.er, 10 MEQ PO DAILY, (Reported) Spironolactone 25 Mg Tablet, 25 MG PO DAILY, (Reported) Torsemide 10 Mg Tablet, 10 MG PO DAILY, (Reported) Review of Systems Constitutional: see HPI, No diaphoresis EENTM: No Symptoms Reported Respiratory: No Symptoms Reported, Denies Shortness of Air, Denies SOA With Exertion, Denies SOA at Rest Cardiovascular: See HPI, Chest Pain, Lightheadedness, Palpitations Gastrointestinal: No Symptoms Reported Genitourinary: No Symptoms Reported Musculoskeletal: no symptoms reported Skin: no symptoms reported Psychiatric/Neurological: No Symptoms Reported Endocrine: No Symptoms Reported Hematologic/Lymphatic: No Symptoms Reported Past [id number]-[id number] Hx Patient Social History Recent Hopitalizations: Yes (FOR NECK SURGERY IN NOVEMBER) Immunizations Up To Date Date of Pneumonia Vaccine: Jan 16, 2011 Date of Influenza Vaccine: Jan 16, 2011 Seasonal Allergies Seasonal Allergies: Yes Surgeries Surgeries: Gallbladder, Orthopedic Cardiovascular Cardiac Disorders: Hypertension Musculoskeletal Musculoskeletal Disorders: Arthritis Endocrine Endocrine Disorders: Diabetes, Non-Insulin dep Blood Transfusions Adverse Reaction to a Blood Tr: No Family Medical History Significant Family History: No Pertinent Family Hx Physical Exam Vital Signs Vital Sign - Last 12Hours 04/25/17 17:59 Temp 98.1 Pulse 60 Resp 16 B/P (MAP) 136/83 Pulse Ox 98 O2 Delivery Room Air Capillary Refill : General Appearance: No Apparent Distress, Obese HEENT: PERRL/EOMI, TMs Normal Neck: Full Range of Motion, Normal Inspection Respiratory: Lungs Clear, Normal Breath Sounds, No Accessory Muscle Use, No Respiratory Distress Cardiovascular: Regular Rate, Rhythm, Normal Peripheral Pulses, Bradycardia ( 50 sinus with PAC) Gastrointestinal: Normal Bowel Sounds, Non Tender, Soft Extremity: Normal Capillary Refill, Normal Inspection Neurologic/Psychiatric: Alert, Oriented x3, No Motor/Sensory Deficits Skin: Normal Color, Warm/Dry Progress/Results/Core Measures Results/Orders Lab Results Laboratory Tests Test 04/25/17 18:15 Range/Units White Blood Count 7.1 4.3-11.0 10^3/uL Red Blood Count 4.73 4.35-5.85 10^6/uL Hemoglobin 14.1 13.3-17.7 G/DL Hematocrit 41 40-54 % Mean Corpuscular Volume 88 80-99 FL Mean Corpuscular Hemoglobin 30 25-34 PG Mean Corpuscular Hemoglobin Concent 34 32-36 G/DL Red Cell Distribution Width 13.4 10.0-14.5 % Platelet Count 242 130-400 10^3/uL Mean Platelet Volume 9.5 7.4-10.4 FL Neutrophils (%) (Auto) 68 42-75 % Lymphocytes (%) (Auto) 25 12-44 % Monocytes (%) (Auto) 6 0-12 % Eosinophils (%) (Auto) 2 0-10 % Basophils (%) (Auto) 0 0-10 % Neutrophils # (Auto) 4.8 1.8-7.8 X 10^3 Lymphocytes # (Auto) 1.8 1.0-4.0 X 10^3 Monocytes # (Auto) 0.5 0.0-1.0 X 10^3 Eosinophils # (Auto) 0.1 0.0-0.3 10^3/uL Basophils # (Auto) 0.0 0.0-0.1 10^3/uL Prothrombin Time 13.1 12.2-14.7 SEC INR Comment 1.0 0.8-1.4 Activated Partial Thromboplast Time 27 24-35 SEC Sodium Level 141 135-145 MMOL/L Potassium Level 3.6 3.6-5.0 MMOL/L Chloride Level 106 98-107 MMOL/L Carbon Dioxide Level 24 21-32 MMOL/L Anion Gap 11 5-14 MMOL/L Blood Urea Nitrogen 13 7-18 MG/DL Creatinine 0.90 0.60-1.30 MG/DL Estimat Glomerular Filtration Rate > 60 BUN/Creatinine Ratio 14 Glucose Level 113 H 70-105 MG/DL Calcium Level 9.0 8.5-10.1 MG/DL Magnesium Level 1.9 1.8-2.4 MG/DL Total Bilirubin 0.6 0.1-1.0 MG/DL Aspartate Amino Transf (AST/SGOT) 17 5-34 U/L Alanine Aminotransferase (ALT/SGPT) 36 0-55 U/L Alkaline Phosphatase 56 40-136 U/L Myoglobin 67.3 10.0-92.0 NG/ML Troponin I < 0.30 <0.30 NG/ML Total Protein 6.6 6.4-8.2 GM/DL Albumin 4.3 3.2-4.5 GM/DL My Orders Orders - JORDAN GRANADOS [employer] Cbc With Automated Diff (04/25/17 18:01) Magnesium (04/25/17 18:01) Chest 1 View, Ap/Pa Only (04/25/17 18:01) Ekg Tracing (04/25/17 18:01) Cardiac Profile 1 (04/25/17 18:) Comprehensive Metabolic Panel (04/25/17 18:) Myoglobin Serum (04/25/17 18:01) Protime With Inr (04/25/17 18:) Partial Thromboplastin Time (04/25/17 18:01) O2 (04/25/17 18:01) Monitor-Rhythm Ecg Trace Only (04/25/17 18:01) Lipid Panel (04/26/17 06:00) Aspirin Chewable Tablet (Baby Aspirin Ch (04/25/17 18:15) Rx-Nitroglycerin Sl Tabs (Rx-Nitrostat S (04/25/17 18:15) Saline Lock/Iv-Start (04/25/17 18:01) Morphine Injection (Morphine Injection (04/25/17 18:45) Medications Given in ED Current Medications Medications Dose Ordered Sig/Amie Route Start Time Stop Time Status Last Admin Dose Admin Aspirin 324 mg ONCE ONCE PO 04/25/17 18:15 04/25/17 18:16 DC 04/25/17 18:23 324 MG Morphine Sulfate 4 mg ONCE ONCE IVP 04/25/17 18:45 04/25/17 18:46 DC 04/25/17 18:50 4 MG Nitroglycerin 0.4 mg PRN PRN SL 04/25/17 18:15 04/25/17 18:23 0.4 MG Vital Signs/I&O Vital Sign - Last 12Hours 04/25/17 04/25/17 17:59 18:50 Temp 98.1 98.1 Pulse 60 Resp 16 B/P (MAP) 136/83 Pulse Ox 98 O2 Delivery Room Air Diagnostic Imaging Diagonstic Imaging: Xray Plain Films/CT/US/NM/MRI: chest Comments NAME: [facility] REC#: [id number] PT STATUS: REG ER : 1955 PHYSICIAN: JORDAN GRANADOS APRN ADMIT DATE: 04/25/17/ER Draft Date of Exam:04/25/17 CHEST 1 VIEW, AP/PA ONLY Clinical indication: Patient complains of chest pain since this afternoon. Exam: Portable chest x-ray upright view. Comparisons: Chest x-ray dated 06/01/2011. Findings: Lungs/pleura: Lungs are clear. There is no pneumothorax. There is no pleural effusion. Mediastinum: Calcified right mediastinal and right hilar lymph nodes are again seen. Pulmonary vasculature: Unremarkable. Heart: Unremarkable. Bones/extrathoracic soft tissue: Interval placement of a lower cervical spine anterior disc fusion. Impression: Interval lower cervical spine postop changes. Otherwise, stable chest x-ray exam with no radiographic evidence of acute cardiopulmonary process. Dictated on workstation # [id number] Dict: 04/25/17 1834 Trans: 04/25/17 1844 [facility] [id number] Interpreted by: RAQUEL ARCHIBALD MD Electronically signed by: Departure Communication (Admissions) Time/Spoke to Consulting Phy: 19:01 Communication/Consulting Discussed the case with Dr. Yoon, agrees to consult. We will admit observation status. Progress Notes 1902- Patient does report improvement in pain from 7 out of 10 down to 5 out of 10 after 1 sublingual nitroglycerin glycerin here. However this dropped his blood pressure from 140 systolic to 110 systolic so we elected not to get a second nitroglycerin. We did give 4 mg IV morphine. Impression Impression: Primary Impression: Chest pain Disposition: ADMITTED INPATIENT Condition: Stable Admissions Decision to Admit Reason: Admit from ER (General) Decision to Admit/Date: Apr 25, 2017 Time/Decision to Admit Time: 19:01 Departure-Patient Inst. Referrals: JANEEN CHAMPION DO (PCP/Family) Primary Care Physician JORDAN GRANADOS APRN Apr 25, 2017 18:20
[2017-04-25] MEDS: RX-NITROGLYCERIN 0.4 MG TAB BTL 25'S SL PRN (18:23)
[2017-04-25 18:27] LABS: BASOPHILS % (AUTO) 0 % (0-10); EOSINOPHILS # (AUTO) 0.1 10^3/uL (0.0-0.3); EOSINOPHILS % (AUTO) 2 % (0-10); LYMPHOCYTES # (AUTO) 1.8 X 10^3 (1.0-4.0); LYMPHOCYTES % (AUTO) 25 % (12-44); MEAN CORPUSCULAR HEMOGLOBIN 30 PG (25-34); MEAN CORPUSCULAR HGB CONC 34 G/DL (32-36); MEAN CORPUSCULAR VOLUME 88 FL (80-99); MEAN PLATELET VOLUME 9.5 FL (7.4-10.4); MONOCYTES # (AUTO) 0.5 X 10^3 (0.0-1.0); MONOCYTES % (AUTO) 6 % (0-12); NEUTROPHILS # (AUTO) 4.8 X 10^3 (1.8-7.8); NEUTROPHILS % (AUTO) 68 % (42-75); PLATELET COUNT 242 10^3/uL (130-400); RED BLOOD COUNT 4.73 10^6/uL (4.35-5.85); RED CELL DISTRIBUTION WIDTH 13.4 % (10.0-14.5); WHITE BLOOD COUNT 7.1 10^3/uL (4.3-11.0)
[2017-04-25 18:39] LABS: PROTHROMBIN TIME PATIENT 13.1 SEC (12.2-14.7)
[2017-04-25 18:44] LABS: ALANINE AMINOTRANSFERASE 36 U/L (0-55); ALBUMIN 4.3 GM/DL (3.2-4.5); ANION GAP 11 MMOL/L (5-14); ASPARTATE AMINO TRANSFERASE 17 U/L (5-34); BILIRUBIN,TOTAL 0.6 MG/DL (0.1-1.0); BLOOD UREA NITROGEN 13 MG/DL (7-18); BUN/CREATININE RATIO 14; CARBON DIOXIDE 24 MMOL/L (21-32); CHLORIDE 106 MMOL/L (98-107); GFR ESTIMATED > 60; GLUCOSE 113 MG/DL (70-105); MAGNESIUM 1.9 MG/DL (1.8-2.4); POTASSIUM 3.6 MMOL/L (3.6-5.0); SODIUM 141 MMOL/L (135-145); TOTAL PROTEIN 6.6 GM/DL (6.4-8.2)
[2017-04-25] MEDS ORDERED: morphine INJ 10 MG/ML 1ML (SYR OR VIAL) IVP ONE (18:45)
--- NOTE | 2017-04-25 18:45 | Diagnostic Imaging Report ---
Clinical indication: Patient complains of chest pain since this afternoon. Exam: Portable chest x-ray upright view. Comparisons: Chest x-ray dated 06/01/2011. Findings: Lungs/pleura: Lungs are clear. There is no pneumothorax. There is no pleural effusion. Mediastinum: Calcified right mediastinal and right hilar lymph nodes are again seen. Pulmonary vasculature: Unremarkable. Heart: Unremarkable. Bones/extrathoracic soft tissue: Interval placement of a lower cervical spine anterior disc fusion. Impression: Interval lower cervical spine postop changes. Otherwise, stable chest x-ray exam with no radiographic evidence of acute cardiopulmonary process. Dictated by: Dictated on workstation # [id number]
[2017-04-25 18:51] LABS: MYOGLOBIN SERUM 67.3 NG/ML (10.0-92.0)
[2017-04-25 20:55] VITALS: BP 129/81
[2017-04-25 21:39] VITALS: BP 114/69
[2017-04-26] VITALS (14 sets, daily range): BP systolic 114–178; BP diastolic 60–98
[2017-04-26] MEDS ORDERED: TIZA2CAP9 PO (00:45)
[2017-04-26] MEDS ORDERED: LORA5SOL51 PO (00:45)
[2017-04-26] MEDS ORDERED: TIZA4TAB3 PO ×2 (00:45)
[2017-04-26] MEDS ORDERED: HYDR-753 PO (00:45)
[2017-04-26 06:34] LABS: CHOLESTEROL 131 MG/DL (< 200); DIRECT LDL 90 MG/DL (1-129); TRIGLYCERIDES 116 MG/DL (<150); VLDL CHOLESTEROL 23 MG/DL (5-40)
[2017-04-26] MEDS ORDERED: NS IV 1000 ML 1,000 ML IV SCH (09:00)
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
--- NOTE | 2017-04-26 09:00 | Cardiac Procedure Note-CS/ASA ---
Pre-Procedure Note Pre-Op Procedure Note H&P Reviewed The H&P was reviewed, patient examined and no changes noted. Date H&P Reviewed: Apr 26, 2017 Time H&P Reviewed: 09:00 Conscious Sedation Pre-Proced Time Reviewed: 09:00 ASA Class: 3 Airway Mallampati Classification: (mentasta appropriate class) I. II. III, IV Lungs Heart ASA score ASA 1: a normal healthy patient ASA 2: a patient with a mild systemic disease (mid diabetes, controlled hypertension, obesity x ASA 3: a patient with a severe systemic disease that limits activity (angina , COPD, prior Myocardial infarction) ASA 4: a patient with an incapacitating disease that is a constant threat to life (CHF, renal failure) ASA 5: a moribund patient not expected to survive 24 hrs. (ruptured aneurysm) ASA 6: a declared brain patient whose organs are being harvested. For emergent operations, add the letter E after the classification Grade 3 Sedation Plan: Analgesia, Amnesia, Plan communicated to team members, Discussed options with patient/fam, Discussed risks with patient/fam Note The patient is an appropriate candidate to undergo the planned procedure, sedation, and anesthesia. The patient immediately re-assessed prior to indication. ELLY AVILA MD Apr 26, 2017 09:00
[2017-04-26] MEDS: RX-NITROGLYCERIN 0.4 MG TAB BTL 25'S SL PRN (09:19)
[2017-04-26] MEDS ORDERED: HYDROcodone/APAP 10 MG/325 MG (LORTAB) TAB PO PRN (11:15)
[2017-04-26] MEDS ORDERED: PATIENT MAY USE OWN MEDS, ALL MC SCH (11:15)
[2017-04-26] MEDS ORDERED: VITAMIN D2 50,000 UNITS (1.25 MG) CAP PO SCH (11:15)
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
[2017-04-26] MEDS ORDERED: fentaNYL INJECTION 100 MCG/2 ML AMP ONE (11:27)
[2017-04-26] MEDS ORDERED: HEParin (CATH LAB) 2,000 ML IV ONE (11:27)
[2017-04-26] MEDS ORDERED: MIDAZOLAM 5 MG/5 ML (VERSED) VIAL ONE (11:27)
[2017-04-26] MEDS ORDERED: NS IV 1000 ML 1,000 ML ONE (11:27)
[2017-04-26] MEDS: KCL 10 MEQ TAB (MICRO K) PO SCH (11:28)
[2017-04-26] MEDS: amLODIPine 5 MG (NORVASC) TAB PO SCH (11:28)
[2017-04-26] MEDS ORDERED: HEParin 1000 UNIT/ML (10ML VIAL) FOR BOLUS ONE (12:05)
[2017-04-26] MEDS ORDERED: NITROGLYCERIN DRIP 25 MG/D5W 250 ML IV ONE (12:05)
[2017-04-26] MEDS ORDERED: CLOPIDOGREL 300 MG (PLAVIX) TABLET PO ONE (12:21)
[2017-04-26] MEDS ORDERED: ASPIRIN 81 MG CHEW (CHILDREN'S ASA) ONE (12:22)
[2017-04-26] MEDS ORDERED: PATIENT MAY USE OWN MEDS, ALL PO SCH (12:30)
--- NOTE | 2017-04-26 12:35 | Cardiac Cath Report ---
Cardiac Cath Report Physician (s)/Environmental Engineering Professor (s) Physician ELLY AVILA MD Pre-Procedure Diagnosis Pre-Procedure Diagnosis: chest pain Post-Procedure Note Procedure Start Date: Apr 26, 2017 Procedure Start Time: 12:00 Name of Procedure: left heart catheterization, left ventriculogram PTCA and stent to the right coronary artery Findings/Procedure Note PROCEDURE NOTE: After explaining the procedure to the patient, all pros and cons were explained, all questions were answered. The patient signed the consent and then she was placed on the cardiac catheterization laboratory. The patient was placed on the cardiac catheterization laboratory. Groin was prepped SL fashion local anesthesia was used. Sheath placed in the artery. Mitzy right and left catheter were used to access the coronary system. Pigtail was used to access the left ventricular cavity. Left ventriculogram was done Patient was noted to have 70 percent stenosis in the midright coronary artery, percutaneous intervention was done, patient was given 7000 units of heparin, FR guide was advanced the right coronary system, BMW wire was advanced to the distal portion, predilatation with 3.015 mm balloon and then I proceeded with deployment of Xience Alpine 4.015 mm expanded to 4.25 mm with excellent results , no residual stenosis. At the end of the procedure the sheath was removed. Closure device was used FINDINGS: Hemodynamics LV 131/16 end-diastolic pressure of 60 Aorta 140/73 mean of 87 ANATOMY: Left Main is free of obstructive disease Left Anterior Descending has mild disease nonobstructive disease Left Circumflex has mild disease nonobstructive disease Right Coronory Artery has 70 percent stenosis at the midportion, balloon angioplasty then stent deployment using Xience Alpine 4.015 mm expanded to 4.25 mm with excellent results LV Gram was done in the right anterior blood position, normal left ventricle size and systolic function estimated ejection fraction 60 percent CONCLUSION: 1. 70 percent stenosis in the midright coronary artery successful balloon angioplasty then stent deployment using Xience Alpine 4.015 mm expanded to 4.25 mm with exertional no residual stenosis with improvement of the flow. 2. Mild disease in the LAD and Left circumflex artery 3. Normal left ventricle size and systolic function as ejection fraction 60 percent DISCUSSION AND RECOMMENDATION: patient was started on aspirin and Plavix. Continue to monitor. Anesthesia Type: Conscious Sedation Estimated blood loss (mL): 10 ml Contrast Amount: 90 ml Total Radiation Dose: 967 mGy Post-Procedure Diagnosis Post-operative diagnosis: Unstable angina Coronary artery disease Hypertension Hyperlipidemia ELLY AVILA MD Apr 26, 2017 12:35
[2017-04-26] MEDS: LORATADINE (CLARITIN) 10 MG TAB PO SCH (15:35)
[2017-04-26] MEDS: NS IV 1000 ML 1,000 ML IV SCH ×2 (15:40→23:44)
[2017-04-26] MEDS: TORSEMIDE 20 MG (DEMADEX) TAB PO SCH (18:11)
[2017-04-26] MEDS: FLUTICASONE NASAL SPRAY (FLONASE) 16 GM BTL NS SCH (18:13)
[2017-04-26] MEDS ORDERED: MONTELUKAST 10 MG (SINGULAIR) TAB PO SCH (21:00)
[2017-04-26] MEDS ORDERED: doxAzosin 4 MG (CARDURA) TAB PO SCH (21:00)
[2017-04-26] MEDS: GLIMEPIRIDE 1 MG (AMARYL) TAB PO SCH (22:24)
[2017-04-27] VITALS: BP 103/64
[2017-04-27 05:11] VITALS: BP 122/68
[2017-04-27 07:18] LABS: MEAN PLATELET VOLUME 9.5 FL (7.4-10.4); RED BLOOD COUNT 4.6 10^6/uL (4.35-5.85); RED CELL DISTRIBUTION WIDTH 13.6 % (10.0-14.5); WHITE BLOOD COUNT 6.5 10^3/uL (4.3-11.0)
[2017-04-27 07:36] LABS: ANION GAP 10 MMOL/L (5-14); BLOOD UREA NITROGEN 10 MG/DL (7-18); BUN/CREATININE RATIO 13; CALCIUM 8.8 MG/DL (8.5-10.1); CARBON DIOXIDE 19 MMOL/L (21-32); CHLORIDE 110 MMOL/L (98-107); CREATININE SERUM 0.77 MG/DL (0.60-1.30); GFR ESTIMATED > 60; GLUCOSE 145 MG/DL (70-105); POTASSIUM 3.9 MMOL/L (3.6-5.0); SODIUM 139 MMOL/L (135-145)
[2017-04-27 08:59] VITALS: BP 151/80
[2017-04-27] MEDS ORDERED: PANTOPRAZOLE 40 MG (PROTONIX) TAB PO SCH (09:00)
[2017-04-27] MEDS ORDERED: ASPIRIN E.C. 81 MG (ECOTRIN) TAB PO SCH (09:00)
[2017-04-27] MEDS ORDERED: CLOPIDOGREL 75 MG (PLAVIX) TABLET PO SCH (09:00)
[2017-04-27] MEDS: NS IV 1000 ML 1,000 ML IV SCH (09:07)
[2017-04-27] MEDS: FLUTICASONE NASAL SPRAY (FLONASE) 16 GM BTL NS SCH (09:09)
[2017-04-27] MEDS: GLIMEPIRIDE 1 MG (AMARYL) TAB PO SCH (09:12)
[2017-04-27] MEDS: LORATADINE (CLARITIN) 10 MG TAB PO SCH (09:12)
[2017-04-27] MEDS: TORSEMIDE 20 MG (DEMADEX) TAB PO SCH (09:12)
[2017-04-27] MEDS: KCL 10 MEQ TAB (MICRO K) PO SCH (09:13)
[2017-04-27] MEDS: amLODIPine 5 MG (NORVASC) TAB PO SCH (09:13)
--- NOTE | 2017-04-27 09:20 | Cardiology Progress Note ---
Subjective Date Seen by Provider: Apr 27, 2017 Time Seen by Provider: 09:17 Subjective/Events-last exam Patient is feeling better, no further episodes of chest pain or shortness of breath. No palpitation. EKG did not show any abnormality. Mildly bradycardic Review of Systems General: No Chills, No Night Sweats, No Fatigue, No Malaise, No Appetite, No Other HEENT: No Head Aches, No Visual Changes, No Eye Pain, No Ear Pain, No Dysphasia , No Sinus Congestion, No Post Nasal Drip, No Sore Throat, No Other Pulmonary: No Dyspnea, No Cough, No Pleuritic Chest Pain, No Other Cardiovascular: No: Chest Pain, Palpitations, Orthopnea, Paroxysmal Noc. Dyspnea, Edema, Lt Headedness, Other Objective-Cardiology Exam Last Set of Vital Signs Vital Signs 04/27/17 08:59 Temp 97.7 Pulse 46 Resp 18 B/P (MAP) 151/80 Pulse Ox 98 O2 Delivery Room Air Capillary Refill : Less Than 3 Seconds I&O Intake and Output 04/28/17 00:00 Intake Total 1240 ml Output Total 1300 ml Balance -60 ml Intake Oral 240 ml IV Total 1000 ml Output Urine Total 1300 ml General: Alert, Oriented X3, Cooperative HEENT: Atraumatic, PERRLA Neck: Supple, No JVD, No Thyromegaly Lungs: Clear to Auscultation, Normal Air Movement Heart: Regular Rate, Normal S1, Normal S2, No Murmurs Abdomen: Normal Bowel Sounds, Soft, No Tenderness, No Hepatosplenomegaly, No Masses Extremities: No Clubbing, No Cyanosis, No Edema, Normal Pulses, No Tenderness/ Swelling Skin: No Rashes, No Breakdown, No Significant Lesion Neuro: Normal Gait, Normal Speech, Strength at 5/5 X4 Ext, Normal Tone, Sensation Intact Psych/Mental Status: Mental Status NL, Mood NL Results Lab Laboratory Tests 04/27/17 07:07 A/P-Cardiology Admission Diagnosis Chest pain Bradycardia Hypertension Hyperlipidemia Assessment/Plan Chest pain, nonspecific etiology, cardiac catheterization was done with a stent to the right coronary artery with excellent results. Coronary artery disease status post cardiac catheterization showed: 1. 70 percent stenosis in the midright coronary artery successful balloon angioplasty then stent deployment using Xience Alpine 4.015 mm expanded to 4.25 mm with no residual stenosis with improvement of the flow. 2. Mild disease in the LAD and Left circumflex artery 3. Normal left ventricle size and systolic function as ejection fraction 60 percent Bradycardia, most probably ineffective PVCs, currently in sinus bradycardia. Continue to monitor Hypertension, restart home medication monitor blood pressure Hyperlipidemia, continue to monitor lipids as an outpatient Family history of heart disease. COPD/obstructive sleep apnea using C Pap machine BMI 36, we discussed weight loss and exercise History of cholecystectomy. Clinical Quality Measures AMI/AHF: ASA po Prior to arrival: Yes (81 mg) DVT/VTE Risk/Contraindication: Risk Factor Score Per Nursin RFS Level Per Nursing on Admit: 3=High ELLY AVILA MD Apr 27, 2017 09:20
[2017-04-27] MEDS ORDERED: ASPI-983 PO ×2 (09:22)
[2017-04-27] MEDS ORDERED: CLOP75TA28 PO ×2 (09:22)
--- NOTE | 2017-04-27 09:23 | Discharge Inst-Post CATH ---
Discharge Inst-CATH Post Cardiac Cath D/C Inst Follow Up/Plan Appointment with Dr. Coker's office in one to 2 weeks CARDIAC CATH DISCHARGE INSTRUCTIONS *Hold Metformin for 48 hours post heart cath. ACTIVITY * Go Home directly and rest. * Limit activity of the leg (or wrist if it was used) for 7 days including aerobics, swimming, jogging, bicycling, etc. * Restrict stair-climbing for 7 days if possible, if not, climb up with your non -cath leg, then bring together on the same step. * Avoid lifting, pushing, pulling or excessive movement of the affected extremity for 7 days. * Customary sexual activity may be resumed after 2 days-use caution not to use a position that strains or causes pain to the affected extremity. * No driving for 24 hours. * NO SMOKING. * Avoid straining for bowel movements for 7 days. * Gentle walking on level ground is allowed. * Returning to work will depend on the type of procedure and the results. Your doctor will discuss this with you. CALL YOUR DOCTOR FOR ANY OF THE FOLLOWING: *If bleeding from the puncture site occurs- Apply gentle pressure to site with clean cloth and call your doctor or EMS. * If a knot or lump forms under the skin, increases in size, or causes pain. * If bruising appears to be worsening or moving further down your leg instead of disappearing. * Temperature above 101 F. CARE OF YOUR GROIN INCISION; * Bruising or purple discoloration of the skin near the puncture site is common. * You may shower only, no bathtub bathing for 5 days. Be careful to avoid slipping as your leg may feel stiff. * If a closure device was used on your femoral artery, please see the attached guide regarding care of the device and your leg. * REMOVE the dressing from your groin the next day after your procedure in the shower. CARE OF YOUR WRIST INCISION; * Bruising or purple discoloration of the skin near the puncture site is common. * You may shower. * DO NOT submerge wrist. * Remove dressing in 24 hours. ELLY AVILA MD Apr 27, 2017 09:23
--- NOTE | 2017-04-27 10:58 | Discharge Summary-Hospitalist ---
Diagnosis/Chief Complaint Date of Admission Apr 25, 2017 at 19:16 Date of Discharge Discharge Date: Apr 27, 2017 Admission Diagnosis Assessment: Chest pain with multiple risk factors for heart disease in need of cardiac catheterization per Dr. Yoon Bradycardia requiring referral to cardiology that was performed this past Friday scheduled stress test and echo and started on baby aspirin and statin therapy Obstructive sleep apnea maintained on CPAP therapy Hypertension labile and malignant in the past Diabetes mellitus recently increased oral hypoglycemic agent and will bridge to insulin in the very near future Chronic renal sufficiency Chronic ear dysfunction requiring TM tubes per Dr. Jacques Discharge Diagnosis Assessment: Chest pain with multiple risk factors for heart diseases/p cardiac catheterization per Dr. Yoon with stent placement in RCA now on Plavix and ASA Bradycardia requiring referral to cardiology that was performed this past Friday scheduled stress test and echo and started on baby aspirin and statin therapy now it appears to be ineffective PVC's per Dr Yoon Obstructive sleep apnea maintained on CPAP therapy Hypertension labile and malignant in the past Diabetes mellitus recently increased oral hypoglycemic agent and will bridge to insulin in the very near future Chronic renal sufficiency Chronic ear dysfunction requiring TM tubes per Dr. Jacques Discharge Summary Discharge Physical Examination Allergies: Coded Allergies: Penicillins (Verified Allergy, Severe, Rash, 06/01/11) diclofenac sodium (Unverified Allergy, Unknown, 12/13/14) lidocaine HCl (Unverified Allergy, Unknown, LOW PULSE, 12/13/14) Vitals & I&Os Vital Signs Date Time Temp Pulse Resp B/P (MAP) Pulse Ox O2 Delivery O2 Flow Rate FiO2 04/27/17 08:59 97.7 46 18 151/80 98 Room Air Hospital Course Hospital course: Patient had an uneventful hospital course he was placed on telemetry noting bradycardia and monitoring chest pain until brought to cardiac catheterization that revealed stenosis of 70 percent in the right coronary artery and Dr. Yoon performed uncomplicated stent placement intervention and now patient is placed on Plavix and aspirin and is to continue low-dose statin therapy along with aspirin therapy as previously prescribed this past week by Dr. Coker. Labs (last 24 hrs) Laboratory Tests 04/27/17 07:07: White Blood Count 6.5, Red Blood Count 4.60, Hemoglobin 13.7, Hematocrit 40, Mean Corpuscular Volume 87, Mean Corpuscular Hemoglobin 30, Mean Corpuscular Hemoglobin Concent 34, Red Cell Distribution Width 13.6, Platelet Count 209, Mean Platelet Volume 9.5, Sodium Level 139, Potassium Level 3.9, Chloride Level 110H, Carbon Dioxide Level 19L, Anion Gap 10, Blood Urea Nitrogen 10, Creatinine 0.77, Estimat Glomerular Filtration Rate > 60, BUN/Creatinine Ratio 13, Glucose Level 145H, Calcium Level 8.8 Pending Labs Laboratory Tests 04/27/17 07:07: White Blood Count 6.5, Red Blood Count 4.60, Hemoglobin 13.7, Hematocrit 40, Mean Corpuscular Volume 87, Mean Corpuscular Hemoglobin 30, Mean Corpuscular Hemoglobin Concent 34, Red Cell Distribution Width 13.6, Platelet Count 209, Mean Platelet Volume 9.5, Sodium Level 139, Potassium Level 3.9, Chloride Level 110, Carbon Dioxide Level 19, Anion Gap 10, Blood Urea Nitrogen 10, Creatinine 0.77, Estimat Glomerular Filtration Rate > 60, BUN/Creatinine Ratio 13, Glucose Level 145, Calcium Level 8.8 Discharge Home Medications: Active Scripts Active Reported Tizanidine HCl 4 Mg Tablet 16 Mg PO HS Tizanidine HCl 2 Mg Capsule 2 Mg PO Q6H while awake [place] 10-325 Tablet (Hydrocodone/Acetaminophen) 1 Each Tablet 10-325 Mg PO Q8H PRN Loratadine Allergy (Loratadine) 5 Mg/5 Ml Solution 5 Mg PO DAILY Torsemide 10 Mg Tablet 10 Mg PO DAILY Singulair (Montelukast Sodium) 10 Mg Tablet 10 Mg PO HS Omeprazole 40 Mg Capsule.dr 40 Mg PO DAILY Glimepiride 1 Mg Tablet 3 Mg PO BID Flonase Allergy Relief (Fluticasone Propionate) 9.9 Ml [place].susp 2 Sprays(Dnu) NS DAILY Potassium Chloride 10 Meq Tablet.er 10 Meq PO DAILY Epipen (Epinephrine) 0.3 Mg/0.3/Syringe Pen.injctr 0.3 Mg IM PRN Vitamin D (Ergocalciferol) 50,000 Unit Capsule 100,000 Unit PO FRIDAY AND FRIDAY Doxazosin Mesylate 4 Mg Tablet 4 Mg PO HS Norvasc (Amlodipine Besylate) 10 Mg Tablet 5 Mg PO DAILY Instructions to patient/family Please see electronic discharge instructions given to patient. Clinical Quality Measures AMI/AHF: ASA po Prior to arrival: Yes (81 mg) DVT/VTE Risk/Contraindication: Risk Factor Score Per Nursin RFS Level Per Nursing on Admit: 3=High JANEEN CHAMPION DO Apr 27, 2017 10:58
== END 2017-04-27 13:26 | disposition home or self-care (01) ==
LOC: EDUNIT# 17:58 → ER 18:00 → 4TH 19:16 → UNDOADMOB 19:16 → 4TH 20:20 → CATH 20:20 → UNDODISOB 04-27 13:26
PROVIDERS: ATTEND Internal Medicine
DX: I25.110 Atherosclerotic heart disease of native coronary artery with unstable angina pectoris (principal); J44.9 Chronic obstructive pulmonary disease, unspecified; G47.33 Obstructive sleep apnea (adult) (pediatric); N18.9 Chronic kidney disease, unspecified; I12.9 Hypertensive chronic kidney disease with stage 1 through stage 4 chronic kidney disease, or unspecified chronic kidney disease; E11.22 Type 2 diabetes mellitus with diabetic chronic kidney disease; E78.5 Hyperlipidemia, unspecified; Z79.899 Other long term (current) drug therapy; Z82.49 Family history of ischemic heart disease and other diseases of the circulatory system
CPT/HCPCS: 36415; 71010; 80048; 80053; 80061; 83735; 83874; 84484; 85025; 85027; 85347; 85610; 85730; 93005; 93041; 93458; 96374; G0378

== ENCOUNTER 2017-05-01 14:55 | Observation (INO) | payer BC ==
[~2017-05-01] VITALS: Ht 177.8 cm; Wt 117.1 kg
[~2017-05-01 14:55] MED LIST changes: +ASPI-983 PO; +CLOP75TA28 PO; +HYDR-753 PO; +LORA5SOL51 PO; +TIZA2CAP9 PO; +TIZA4TAB3 PO
[2017-05-01] MEDS ORDERED: ASPIRIN 81 MG CHEW (CHILDREN'S ASA) PO ONE (15:00)
[2017-05-01] MEDS ORDERED: NITROGLYCERIN 0.4 MG SL TABS BTL 25'S SL ONE (15:03)
[2017-05-01 15:12] LABS: BASOPHILS % (AUTO) 0 % (0-10); EOSINOPHILS # (AUTO) 0.1 10^3/uL (0.0-0.3); EOSINOPHILS % (AUTO) 1 % (0-10); LYMPHOCYTES # (AUTO) 1.5 X 10^3 (1.0-4.0); LYMPHOCYTES % (AUTO) 17 % (12-44); MEAN CORPUSCULAR HEMOGLOBIN 30 PG (25-34); MEAN CORPUSCULAR HGB CONC 35 G/DL (32-36); MEAN CORPUSCULAR VOLUME 87 FL (80-99); MEAN PLATELET VOLUME 9.5 FL (7.4-10.4); MONOCYTES # (AUTO) 0.6 X 10^3 (0.0-1.0); MONOCYTES % (AUTO) 6 % (0-12); NEUTROPHILS # (AUTO) 6.6 X 10^3 (1.8-7.8); NEUTROPHILS % (AUTO) 75 % (42-75); PLATELET COUNT 245 10^3/uL (130-400); RED BLOOD COUNT 4.81 10^6/uL (4.35-5.85); RED CELL DISTRIBUTION WIDTH 13.4 % (10.0-14.5); WHITE BLOOD COUNT 8.7 10^3/uL (4.3-11.0)
[2017-05-01 15:24] LABS: INR 0.9 (0.8-1.4); PROTHROMBIN TIME PATIENT 12.6 SEC (12.2-14.7)
--- NOTE | 2017-05-01 15:29 | ED Chest Pain ---
General Chief Complaint: Chest Pain Stated Complaint: CP Nursing Triage Note: PT CO OF CHEST PAIN, AMBULATED TO ROOM5 PT STATES CHEST PAIN STARTED APPROX 1HR AGO STATES HAD JUST FINISHED EATING. PT HAD HEART CATH AND STENT ON FRIDAY OF THIS WEEK Nursing Sepsis Screen: No Definite Risk Source: patient, family Exam Limitations: no limitations History of Present Illness Time seen by provider: 15:25 Initial Comments To ER with recurrent right-sided chest pain. This pain radiates through posteriorly to his back. He had some associated nausea initially but none currently. No shortness of breath. Patient was here for the same symptoms on Friday, admitted, had cardiac catheterization with stenting to the RCA secondary to 70 percent stenosis. He'd been feeling well and was discharged Friday of this week. Today he ate lunch at [employer] in [place]. Shortly thereafter these symptoms began. He is on Plavix now and has not missed any doses. 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 NTG SL COATER CARBON PAPER: No Associated Symptoms: back pain Allergies and Home Medications Allergies Coded Allergies: Penicillins (Verified Allergy, Severe, Rash, 06/01/11) diclofenac sodium (Unverified Allergy, Unknown, 12/13/14) lidocaine HCl (Unverified Allergy, Unknown, LOW PULSE, 12/13/14) Home Medications Amlodipine Besylate 10 Mg Tablet, 5 MG PO DAILY, (Reported) Aspirin 81 Mg Tablet.dr, 81 MG PO DAILY, #100 Ref 4 Prescribed by: ELLY YOON on 04/27/171711 Clopidogrel Bisulfate 75 Mg Tablet, 75 MG PO DAILY, #30 Ref 6 Prescribed by: ELLY YOON on 04/27/171711 Doxazosin Mesylate 4 Mg Tablet, 4 MG PO HS, (Reported) Epinephrine 0.3 Mg/0.3/Syringe Pen.injctr, 0.3 MG IM PRN, (Reported) Ergocalciferol 50,000 Unit Capsule, 100,000 UNIT PO Friday and , ( Reported) Fluticasone Propionate 9.9 Ml [place].susp, 2 SPRAYS(DNU) NS DAILY, (Reported) Glimepiride 1 Mg Tablet, 3 MG PO BID, (Reported) Hydrocodone/Acetaminophen 1 Each Tablet, 10-325 MG PO Q8H PRN for pain, ( Reported) Loratadine 5 Mg/5 Ml Solution, 5 MG PO DAILY, (Reported) Montelukast Sodium 10 Mg Tablet, 10 MG PO HS, (Reported) Omeprazole 40 Mg Capsule.dr, 40 MG PO DAILY, (Reported) Potassium Chloride 10 Meq Tablet.er, 10 MEQ PO DAILY, (Reported) Tizanidine HCl 2 Mg Capsule, 2 MG PO Q6H, (Reported) while awake Tizanidine HCl 4 Mg Tablet, 16 MG PO HS, (Reported) Torsemide 10 Mg Tablet, 10 MG PO DAILY, (Reported) Review of Systems Constitutional: see HPI EENTM: No Symptoms Reported Respiratory: No Symptoms Reported Cardiovascular: See HPI, Chest Pain Gastrointestinal: See HPI Genitourinary: No Symptoms Reported Musculoskeletal: no symptoms reported Skin: no symptoms reported Psychiatric/Neurological: No Symptoms Reported Endocrine: No Symptoms Reported Hematologic/Lymphatic: No Symptoms Reported Past Kzbscqf-Kokrfn-Cpwlgb Hx Patient Social History Alcohol Use: Denies Use Number of Drinks Today: AA Alcohol Beverage of Choice: Beer Recreational Drug Use: No Smoking Status: Never a Smoker Recent Foreign Travel: No Contact w/Someone Who Travel: No Recent Infectious Disease Expo: No Recent Hopitalizations: Yes (HEART CATH AND STENT ON FRIDAY) Physical Abuse: No Sexual Abuse: No Immunizations Up To Date Tetanus Booster (TDap): Unknown Date of Pneumonia Vaccine: May 18, 2015 Date of Influenza Vaccine: Jan 16, 2011 Seasonal Allergies Seasonal Allergies: Yes Surgeries History of Surgeries: Yes (GB; Ortho; cysts removed hydrocele; T & A; vastectomy) Surgeries: Gallbladder, Orthopedic Respiratory History of Respiratory Disorde: Yes (PNEUMONIA A CHILD) Currently Using CPAP: Yes (at home) Cardiovascular History of Cardiac Disorders: Yes (HEART CATH AND STENT) Cardiac Disorders: Hypertension Neurological History of Neurological Disord: Yes Neurological Disorders: Neuropathy Genitourinary History of Genitourinary Disor: Yes (stg II renal failure) Genitourinary Disorders: Renal Failure Gastrointestinal History of Gastrointestinal Di: Yes (ULCER) Gastrointestinal Disorders: Gastroesophageal Reflux, Ulcer Musculoskeletal History of Musculoskeletal Dis: Yes (LEFT SHOULDER SURGERIES X 2; neck surg fusion) Musculoskeletal Disorders: Arthritis Endocrine History of Endocrine Disorders: Yes Endocrine Disorders: Diabetes, Non-Insulin dep HEENT History of HEENT Disorders: Yes (cataract surg ) HEENT Disorders: Cataract Cancer History of Cancer: No Psychosocial History of Psychiatric Problem: No Suicide Risk Score: 0 Integumentary History of Skin or Integumenta: No Blood Transfusions History of Blood Disorders: No Adverse Reaction to a Blood Tr: No Family Medical History Significant Family History: No Pertinent Family Hx Family Medial History: Asthma 19 FATHER, Onset:Unknown Colon cancer maternal grandmother, Onset:Unknown Dementia 19 FATHER, Onset:60 years & older FH: congestive heart failure maternal grandfather, Onset:Unknown FHx: colon cancer Myocardial infarction 19 MOTHER, Onset:60 years & older Physical Exam Vital Signs Vital Sign - Last 12Hours Capillary Refill : Less Than 3 Seconds General Appearance: No Apparent Distress, WD/WN HEENT: PERRL/EOMI Neck: Full Range of Motion, Normal Inspection Respiratory: Normal Breath Sounds, No Accessory Muscle Use, No Respiratory Distress Cardiovascular: Regular Rate, Rhythm, Normal Peripheral Pulses Extremity: Normal Capillary Refill Neurologic/Psychiatric: Alert, Oriented x3, No Motor/Sensory Deficits Skin: Normal Color, Warm/Dry Progress/Results/Core Measures Results/Orders Lab Results Laboratory Tests Test 05/01/17 15:05 Range/Units White Blood Count 8.7 4.3-11.0 10^3/uL Red Blood Count 4.81 4.35-5.85 10^6/uL Hemoglobin 14.4 13.3-17.7 G/DL Hematocrit 42 40-54 % Mean Corpuscular Volume 87 80-99 FL Mean Corpuscular Hemoglobin 30 25-34 PG Mean Corpuscular Hemoglobin Concent 35 32-36 G/DL Red Cell Distribution Width 13.4 10.0-14.5 % Platelet Count 245 130-400 10^3/uL Mean Platelet Volume 9.5 7.4-10.4 FL Neutrophils (%) (Auto) 75 42-75 % Lymphocytes (%) (Auto) 17 12-44 % Monocytes (%) (Auto) 6 0-12 % Eosinophils (%) (Auto) 1 0-10 % Basophils (%) (Auto) 0 0-10 % Neutrophils # (Auto) 6.6 1.8-7.8 X 10^3 Lymphocytes # (Auto) 1.5 1.0-4.0 X 10^3 Monocytes # (Auto) 0.6 0.0-1.0 X 10^3 Eosinophils # (Auto) 0.1 0.0-0.3 10^3/uL Basophils # (Auto) 0.0 0.0-0.1 10^3/uL Prothrombin Time 12.6 12.2-14.7 SEC INR Comment 0.9 0.8-1.4 Activated Partial Thromboplast Time 28 24-35 SEC Sodium Level 140 135-145 MMOL/L Potassium Level 3.6 3.6-5.0 MMOL/L Chloride Level 105 98-107 MMOL/L Carbon Dioxide Level 25 21-32 MMOL/L Anion Gap 10 5-14 MMOL/L Blood Urea Nitrogen 16 7-18 MG/DL Creatinine 1.01 0.60-1.30 MG/DL Estimat Glomerular Filtration Rate > 60 BUN/Creatinine Ratio 16 Glucose Level 244 H 70-105 MG/DL Calcium Level 9.7 8.5-10.1 MG/DL Magnesium Level 1.9 1.8-2.4 MG/DL Total Bilirubin 0.6 0.1-1.0 MG/DL Aspartate Amino Transf (AST/SGOT) 16 5-34 U/L Alanine Aminotransferase (ALT/SGPT) 39 0-55 U/L Alkaline Phosphatase 59 40-136 U/L Myoglobin 34.3 10.0-92.0 NG/ML Troponin I < 0.30 <0.30 NG/ML Total Protein 7.2 6.4-8.2 GM/DL Albumin 4.6 H 3.2-4.5 GM/DL My Orders Orders - JORDAN GRANADOS APRN Morphine Injection (Morphine Injection (05/01/17 16:00) Medications Given in ED Current Medications Medications Dose Ordered Sig/Amie Route Start Time Stop Time Status Last Admin Dose Admin Aspirin 324 mg ONCE ONCE PO 05/01/17 15:00 05/01/17 15:01 DC 05/01/17 15:10 324 MG Nitroglycerin 0.4 mg STK-MED ONCE SL 05/01/17 15:03 05/01/17 15:11 DC 05/01/17 15:12 0.4 MG Vital Signs/I&O Vital Sign - Last 12Hours 05/01/17 05/01/17 05/01/17 15:00 15:00 15:00 Temp 97.1 Pulse 76 Resp 18 B/P (MAP) 170/91 Pulse Ox 99 99 O2 Delivery Nasal Cannula Nasal Cannula O2 Flow Rate 2.00 2.0 Blood Pressure Mean: 117 Progress Note : Progress Note 1528-on arrival to ER he rated his pain at 8 out of 10. Blood pressure was 170/ 90. Heart rate 76. There were no EKG changes to suggest ischemia. He was given one sublingual nitroglycerin which reduced his blood pressure 120/80 and reduced pain to "6.5 out of 10". Departure Communication (Admissions) Time/Spoke to Admitting Phy: 15:[address] Garrison who is on-call for Dr. Yoon. Recommend 6 hour troponin for rule out and since the patient's pain was started at 1 p.m. this B7 p.m. we will need to admit the patient for this. He recommends admitting to the hospitalist and he will consult. Patient does report that he is having some sensation of palpitations though none of this is visualized on the roll tester. He does state that he feels a bit anxious and that may be a large part of the patient's problem. Time/Spoke to Consulting Phy: 16:00 Communication/Consulting Discussed the case with Dr. Champion. agrees to admit consult cardiology. Impression Impression: Primary Impression: Chest pain Disposition: ADMITTED INPATIENT Condition: Stable Admissions Decision to Admit Reason: Admit from ER (General) Decision to Admit/Date: May 01, 2017 Time/Decision to Admit Time: 16:00 Departure-Patient Inst. Referrals: JANEEN CHAMPION DO (PCP/Family) Primary Care Physician JORDAN GRANADOS APRN May 01, 2017 15:29
[2017-05-01 15:31] LABS: CARBON DIOXIDE 25 MMOL/L (21-32); CHLORIDE 105 MMOL/L (98-107); POTASSIUM 3.6 MMOL/L (3.6-5.0); SODIUM 140 MMOL/L (135-145)
[2017-05-01 15:32] LABS: ALANINE AMINOTRANSFERASE 39 U/L (0-55); ALBUMIN 4.6 GM/DL (3.2-4.5); ANION GAP 10 MMOL/L (5-14); ASPARTATE AMINO TRANSFERASE 16 U/L (5-34); BILIRUBIN,TOTAL 0.6 MG/DL (0.1-1.0); BLOOD UREA NITROGEN 16 MG/DL (7-18); BUN/CREATININE RATIO 16; CALCIUM 9.7 MG/DL (8.5-10.1); CREATININE SERUM 1.01 MG/DL (0.60-1.30); GFR ESTIMATED > 60; GLUCOSE 244 MG/DL (70-105); MAGNESIUM 1.9 MG/DL (1.8-2.4); TOTAL PROTEIN 7.2 GM/DL (6.4-8.2)
--- NOTE | 2017-05-01 15:37 | Diagnostic Imaging Report ---
Portable upright radiograph of the chest. INDICATION: Chest pain. FINDINGS: The lungs are clear. The heart size is normal. There is no effusion or pneumothorax. The mediastinum and mylene appear unremarkable. Cervical spine fusion hardware is seen. IMPRESSION: Unremarkable exam. Dictated by: Dictated on workstation # [id number]
[2017-05-01 15:38] LABS: MYOGLOBIN SERUM 34.3 NG/ML (10.0-92.0)
[2017-05-01] MEDS ORDERED: morphine INJ 10 MG/ML 1ML (SYR OR VIAL) IVP ONE (16:00)
[2017-05-01] MEDS ORDERED: CATHETER FLUSH 10 ML SYR IV PRN (17:00)
[2017-05-01] MEDS ORDERED: LORazepam 0.5 MG (ATIVAN) TABLET PO PRN (17:00)
--- NOTE | 2017-05-01 17:45 | Consultation-Cardiology ---
HPI-Cardiology Cardiology Consultation: Date of Consultation 05/01/17 Time Seen by Provider: 17:30 Date of Admission Attending Physician Yulia Cruz DO Admitting Physician Yulia Cruz DO Consulting Physician ROXANNE AL MD, MA, FACP, FACC, FSCAI, CCDS HPI: Chief Complaint: Chest discomfort HPI: 61 yo man with a h/o CAD and recent RCA stenting by Dr Yoon presents with chest discomfort: R parasternal, radiating to R paraspinal area, continuous but waxing and waning for several hours, partial improvement with NTG but not complete relief, not associated with other symptoms, somewhat similar to previous cp episodes. Has chronic palp consisting of pounding, hard heart beats that come intermittently. No leg swelling or fever or chills Review of Systems-Cardiology Review of Systems Constitutional: No malaise, No tiredness, No weight loss, No weight gain Eyes: No vision change Ears/Nose/Throat: No ear discharge, No nasal drainage, No recent hearing loss Respiratory: As described under HPI Cardiovascular: As described under HPI Gastrointestinal: No constipation, No diarrhea, nausea (mild, intermittent) Genitourinary: No dysuria, No hematuria Musculoskeletal: back pain (chronic), joint pain (chronic) Skin: No rash, No ulcerations Psychiatric/Neurological: No seizure, No focal weakness, No syncope Hematologic: No bleeding abnormalities IHV-Jxzasi-Iufhwc Hx Patient Social History Alcohol Use: Denies Use Recreational Drug Use: No Smoking Status: Never a Smoker Recent Foreign Travel: No Recent Infectious Disease Expo: No Hospitalization with Isolation: Denies Immunizations Up To Date Tetanus Booster (TDap): Unknown Date of Pneumonia Vaccine: May 18, 2015 Date of Influenza Vaccine: Jan 16, 2011 Past Medical History PMH As described under Assessment. Family Medical History Family History: Asthma 19 FATHER, Onset:Unknown Colon cancer maternal grandmother, Onset:Unknown Dementia 19 FATHER, Onset:60 years & older FH: congestive heart failure maternal grandfather, Onset:Unknown FHx: colon cancer Myocardial infarction 19 MOTHER, Onset:60 years & older Allergies and Home Medications Allergies Coded Allergies: Penicillins (Verified Allergy, Severe, Rash, 06/01/11) diclofenac sodium (Unverified Allergy, Unknown, 12/13/14) lidocaine HCl (Unverified Allergy, Unknown, LOW PULSE, 12/13/14) Home Medications Amlodipine Besylate 10 Mg Tablet, 5 MG PO DAILY, (Reported) Aspirin 81 Mg Tablet.dr, 81 MG PO DAILY, #100 Ref 4 Prescribed by: LELY YOON on 04/27/171711 Clopidogrel Bisulfate 75 Mg Tablet, 75 MG PO DAILY, #30 Ref 6 Prescribed by: ELLY YOON on 04/27/171711 Doxazosin Mesylate 4 Mg Tablet, 4 MG PO HS, (Reported) Epinephrine 0.3 Mg/0.3/Syringe Pen.injctr, 0.3 MG IM PRN, (Reported) Ergocalciferol 50,000 Unit Capsule, 100,000 UNIT PO Friday and , ( Reported) Fluticasone Propionate 9.9 Ml [place].susp, 2 SPRAYS(DNU) NS DAILY, (Reported) Glimepiride 1 Mg Tablet, 3 MG PO BID, (Reported) Hydrocodone/Acetaminophen 1 Each Tablet, 10-325 MG PO Q8H PRN for pain, ( Reported) Loratadine 5 Mg/5 Ml Solution, 5 MG PO DAILY, (Reported) Montelukast Sodium 10 Mg Tablet, 10 MG PO HS, (Reported) Omeprazole 40 Mg Capsule.dr, 40 MG PO DAILY, (Reported) Potassium Chloride 10 Meq Tablet.er, 10 MEQ PO DAILY, (Reported) Tizanidine HCl 2 Mg Capsule, 2 MG PO Q6H, (Reported) while awake Tizanidine HCl 4 Mg Tablet, 16 MG PO HS, (Reported) Torsemide 10 Mg Tablet, 10 MG PO DAILY, (Reported) Physical Exam-Cardiology Physical Exam Vital Signs/I&O Vital Sign - Last 12Hours 05/01/17 05/01/17 05/01/17 05/01/17 15:00 15:00 15:00 16:06 Temp 97.1 Pulse 76 69 Resp 18 16 B/P (MAP) 170/91 Pulse Ox 99 99 97 O2 Delivery Nasal Cannula Nasal Cannula O2 Flow Rate 2.00 2.0 Capillary Refill : Less Than 3 Seconds Constitutional: AAO x 3, well-developed, well-nourished HEENT: PERRL, EOMI, hearing is well preserved, No xanthelasmas are seen Neck: carotid pulses are 2 + bilaterally, with good upstrokes Respiratory: No accessory muscle use, lungs clear to percussion, lungs clear to auscultation Cardiovascular: regular rate-rhythm, S1 and S2, systolic murmur (faint ZONIA at cardiac base) Gastrointestinal: No tender, soft, No guarding, No rebound, audible bowel sounds Extremities: No clubbing, No cyanosis, No significant edema Neurologic/Psychiatric: oriented x 3, grossly intact, power is 5/5 both on sides Skin: No rash on exposed areas, No ulcerations on exposed areas Data Review Labs Laboratory Tests 05/01/17 15:05: White Blood Count 8.7, Red Blood Count 4.81, Hemoglobin 14.4, Hematocrit 42, Mean Corpuscular Volume 87, Mean Corpuscular Hemoglobin 30, Mean Corpuscular Hemoglobin Concent 35, Red Cell Distribution Width 13.4, Platelet Count 245, Mean Platelet Volume 9.5, Neutrophils (%) (Auto) 75, Lymphocytes (%) (Auto) 17, Monocytes (%) (Auto) 6, Eosinophils (%) (Auto) 1, Basophils (%) (Auto) 0, Neutrophils # (Auto) 6.6, Lymphocytes # (Auto) 1.5, Monocytes # (Auto) 0.6, Eosinophils # (Auto) 0.1, Basophils # (Auto) 0.0, Prothrombin Time 12.6, INR Comment 0.9, Activated Partial Thromboplast Time 28, Sodium Level 140, Potassium Level 3.6, Chloride Level 105, Carbon Dioxide Level 25, Anion Gap 10, Blood Urea Nitrogen 16, Creatinine 1.01, Estimat Glomerular Filtration Rate > 60 , BUN/Creatinine Ratio 16, Glucose Level 244H, Calcium Level 9.7, Magnesium Level 1.9, Total Bilirubin 0.6, Aspartate Amino Transf (AST/SGOT) 16, Alanine Aminotransferase (ALT/SGPT) 39, Alkaline Phosphatase 59, Myoglobin 34.3, Troponin I < 0.30, Total Protein 7.2, Albumin 4.6H A/P-Cardiology Assessment/Admission Diagnosis Chest pain, nonspecific, w/o any evidence of ACS so far Coronary artery disease. Cardiac cath of 04/26/[address] Yoon showed 70 percent stenosis in the mid RCA that was stented with Xience Alpine 4.015 mm expanded to 4.25 mm; mild disease in the LAD and Left circumflex artery; normal left ventricle size and systolic function and ejection fraction 60 percent H/o sinus alicia and PVCs Hypertension Hyperlipidemia COPD/obstructive sleep apnea using C Pap machine Obesity with BMI 36 History of cholecystectomy Discussion and Recomendations * There is no evidence of ACS, but he reports some features of his chest discomfort are similar to the discomfort he had prior to cor stenting. We will carry our serial card enzymes. If enz positive, then repeat cath. If enz negative, then MPI. Due to chronic joint and back pain, he won't be able to walk a treadmill. We will carry out pharm MPI * Risk factor modification reviewed Clinical Quality Measures AMI/AHF: ASA po Prior to arrival: Yes ROXANNE AL MD FACP FAC CCDS May 01, 2017 17:44
[2017-05-01] MEDS ORDERED: ACETAMINOPHEN 325 MG TABLET/CAPLET (TYLENOL) PO PRN (18:15)
[2017-05-01] MEDS ORDERED: FAMOTIDINE 20 MG (PEPCID) TABLET PO PRN (18:15)
[2017-05-01 19:00] VITALS: BP 137/81
[2017-05-01 20:00] VITALS: BP 120/62
[2017-05-01 21:00] VITALS: BP 105/68
[2017-05-01] MEDS ORDERED: ATORVASTATIN 40 MG (LIPITOR) TABLET PO SCH (21:00)
[2017-05-01] MEDS: CATHETER FLUSH 10 ML SYR IV SCH (21:10)
[2017-05-01 22:00] VITALS: BP 130/82
[2017-05-01 23:00] VITALS: BP 125/70
[2017-05-02] VITALS (14 sets, daily range): BP systolic 98–165; BP diastolic 63–95
[2017-05-02 04:09] LABS: BASOPHILS % (AUTO) 0 % (0-10); EOSINOPHILS # (AUTO) 0.1 10^3/uL (0.0-0.3); EOSINOPHILS % (AUTO) 2 % (0-10); LYMPHOCYTES # (AUTO) 1.8 X 10^3 (1.0-4.0); LYMPHOCYTES % (AUTO) 27 % (12-44); MEAN CORPUSCULAR HEMOGLOBIN 30 PG (25-34); MEAN CORPUSCULAR HGB CONC 34 G/DL (32-36); MEAN CORPUSCULAR VOLUME 88 FL (80-99); MEAN PLATELET VOLUME 9.8 FL (7.4-10.4); MONOCYTES # (AUTO) 0.6 X 10^3 (0.0-1.0); MONOCYTES % (AUTO) 9 % (0-12); NEUTROPHILS # (AUTO) 4.3 X 10^3 (1.8-7.8); NEUTROPHILS % (AUTO) 62 % (42-75); PLATELET COUNT 225 10^3/uL (130-400); RED BLOOD COUNT 4.31 10^6/uL (4.35-5.85); RED CELL DISTRIBUTION WIDTH 13.6 % (10.0-14.5); WHITE BLOOD COUNT 6.9 10^3/uL (4.3-11.0)
[2017-05-02 04:19] LABS: ANION GAP 11 MMOL/L (5-14); BLOOD UREA NITROGEN 13 MG/DL (7-18); BUN/CREATININE RATIO 16; CALCIUM 8.6 MG/DL (8.5-10.1); CARBON DIOXIDE 20 MMOL/L (21-32); CHLORIDE 109 MMOL/L (98-107); CREATININE SERUM 0.82 MG/DL (0.60-1.30); GFR ESTIMATED > 60; GLUCOSE 177 MG/DL (70-105); MAGNESIUM 1.9 MG/DL (1.8-2.4); POTASSIUM 4.2 MMOL/L (3.6-5.0); SODIUM 140 MMOL/L (135-145)
[2017-05-02 04:22] LABS: CHOLESTEROL 89 MG/DL (< 200); DIRECT LDL 39 MG/DL (1-129); TRIGLYCERIDES 68 MG/DL (<150); VLDL CHOLESTEROL 14 MG/DL (5-40)
[2017-05-02] MEDS: CATHETER FLUSH 10 ML SYR IV SCH ×2 (05:46→14:22)
[2017-05-02] MEDS ORDERED: REGADENOSON 0.4 MG/5 ML SYR (LEXISCAN) IV ONE ×2 (08:14→08:30)
--- NOTE | 2017-05-02 08:56 | Progress Note-Cardiology ---
Cardiology SOAP Progress Note Subjective: MPI today. No further c/o CP. C/O mid-back pain. No c/o dyspnea, palpitations , syncope or near syncope. Objective: I&O/Vital Signs Vital Sign - Last 12Hours 05/02/17 05/02/17 05/02/17 05/02/17 06:00 07:00 07:00 08:00 Pulse 52 63 55 Resp 7 14 B/P (MAP) 118/72 121/72 Pulse Ox 98 98 O2 Delivery Room Air Room Air Room Air 05/02/17 05/02/17 05/02/17 05/02/17 08:00 08:00 08:23 08:26 Temp 96.9 Pulse 65 72 B/P (MAP) 147/82 143/63 Pulse Ox 97 98 99 O2 Delivery Room Air 05/02/17 05/02/17 05/02/17 05/02/17 08:28 11:43 12:00 13:00 Temp 98.9 Pulse 74 60 70 Resp 16 B/P (MAP) 135/80 151/92 Pulse Ox 98 100 O2 Delivery Room Air Room Air 05/02/17 05/02/17 16:00 16:00 Temp 98.6 Pulse 66 Resp 18 B/P (MAP) 165/95 Pulse Ox 99 O2 Delivery Room Air Room Air Intake and Output 05/03/17 00:00 Intake Total 600 ml Balance 600 ml Weight (Pounds): 258 Weight (Ounces): 3.0 Weight (Calculated Kilograms): [id number] Constitutional: AAO x 3, well-developed, well-nourished Respiratory: No accessory muscle use, lungs clear to percussion, lungs clear to auscultation Cardiovascular: regular rate-rhythm, S1 and S2, systolic murmur (faint ZONIA at cardiac base) Gastrointestional: No tender, soft, No guarding, No rebound, audible bowel sounds Extremities: No clubbing, No cyanosis, No significant edema Neurologic/Psychiatric: oriented x 3, grossly intact, power is 5/5 both on sides Skin: No rash on exposed areas, No ulcerations on exposed areas Results/Procedures: Labs Laboratory Tests 05/01/17 21:15: Troponin I < 0.30 05/02/17 03:26: Troponin I < 0.30, White Blood Count 6.9, Red Blood Count 4.31L, Hemoglobin 12.8L, Hematocrit 38L, Mean Corpuscular Volume 88, Mean Corpuscular Hemoglobin 30, Mean Corpuscular Hemoglobin Concent 34, Red Cell Distribution Width 13.6, Platelet Count 225, Mean Platelet Volume 9.8, Neutrophils (%) (Auto) 62, Lymphocytes (%) (Auto) 27, Monocytes (%) (Auto) 9, Eosinophils (%) (Auto) 2, Basophils (%) (Auto) 0, Neutrophils # (Auto) 4.3, Lymphocytes # (Auto) 1.8, Monocytes # (Auto) 0.6, Eosinophils # (Auto) 0.1, Basophils # (Auto) 0.0, Sodium Level 140, Potassium Level 4.2, Chloride Level 109H, Carbon Dioxide Level 20L, Anion Gap 11, Blood Urea Nitrogen 13, Creatinine 0.82, Estimat Glomerular Filtration Rate > 60, BUN/Creatinine Ratio 16, Glucose Level 177H, Calcium Level 8.6, Magnesium Level 1.9, Triglycerides Level 68, Cholesterol Level 89, LDL Cholesterol Direct 39, VLDL Cholesterol 14, HDL Cholesterol 41 A/P: Assessment: Chest pain, nonspecific, w/o any evidence of ACS so far Coronary artery disease. Cardiac cath of 04/26/[address] Yoon showed 70 percent stenosis in the mid RCA that was stented with Xience Alpine 4.015 mm expanded to 4.25 mm; mild disease in the LAD and Left circumflex artery; normal left ventricle size and systolic function and ejection fraction 60 percent H/o sinus alicia and PVCs Hypertension Hyperlipidemia COPD/obstructive sleep apnea using C Pap machine Obesity with BMI 36 History of cholecystectomy Plan: * There is no evidence of ACS, but he reports some features of his chest discomfort are similar to the discomfort he had prior to cor stenting. We will carry our serial card enzymes. If enz positive, then repeat cath. If enz negative, then MPI. Due to chronic joint and back pain, he won't be able to walk a treadmill. * MPI pending * Continue current medication regimen * Risk factor modification reviewed Physician Assessment Physician Assessment Please see my separate note of the same date Clinical Quality Measures AMI/AHF: ASA po Prior to arrival: Yes AROLDO GODFREY DIRECTOR OF PLAYER PERSONNEL May 02, 2017 08:55 ROXANNE AL MD FACP FAC CCDS May 02, 2017 17:48
[2017-05-02] MEDS ORDERED: CLOPIDOGREL 75 MG (PLAVIX) TABLET PO SCH ×2 (09:00→11:38)
[2017-05-02] MEDS ORDERED: ASPIRIN 81 MG CHEW (CHILDREN'S ASA) PO SCH ×2 (09:00→21:00)
[2017-05-02] MEDS ORDERED: PATIENT MAY USE OWN MEDS, ALL MC SCH (10:30)
--- NOTE | 2017-05-02 12:02 | Short Stay Summary-Hospitalist ---
HPI History of Present Illness: HPI/Chief Complaint CC: Chest pain HPI: This is a 61 [facility] clinic pt [facility] who recently had an RCA stent placed by Dr. Yoon who presented to ER with right flank pain. Normal work up ensued due to recent stent. Patient Interview: Pt confirms just having a stress test this am results are pending. If the issues are not heart, it may be progression of spine issue. This possibility was discussed. Pt confirms experiencing back pain, but denies experiencing the abdominal pain he had yesterday Physical exam stable. Scribed by Shira Noel under the direct supervision of Dr. Champion. Source: patient Exam Limitations: no limitations Date Seen 05/02/17 Time Seen by Provider: 10:30 Attending Physician Yulia Champion DO PCP Yulia Champion DO Referring Physician Date of Admission May 01, 2017 at 15:59 Home Medications & Allergies Home Medications Reviewed patient Home Medication Reconciliation Form Allergies Allergies Coded Allergies Penicillins (Verified Allergy, Severe, Rash, 06/01/11) diclofenac sodium (Unverified Allergy, Unknown, 12/13/14) lidocaine HCl (Unverified Allergy, Unknown, LOW PULSE, 12/13/14) Past Xobrtgi-Dxeyvg-Rgpqna Hx Patient Social History Marrital Status: Employed/Student: retired Alcohol Use: Occasionally Uses Number of Drinks Today: AA Alcohol Beverage of Choice: Wine Recreational Drug Use: No Smoking Status: Never a Smoker Physical Abuse Screen: No Sexual Abuse: No Recent Foreign Travel: No Contact w/other who traveled: No Recent Hopitalizations: Yes Recent Infectious Disease Expo: No Immunizations Up To Date Tetanus Booster (TDap): Unknown Date of Pneumonia Vaccine: May 18, 2015 Date of Influenza Vaccine: Jan 16, 2011 Seasonal Allergies Seasonal Allergies: No Surgeries Yes Gallbladder, Orthopedic Respiratory No Sleep Apnea Currently Using CPAP: Yes (at home) Cardiovascular Yes Coronary Artery Disease (s/p stent), Hypertension Neurological No Neuropathy Genitourinary No Renal Failure Gastrointestinal No Gastroesophageal Reflux, Ulcer Musculoskeletal Yes Degenerate Disk Disease, Arthritis Endocrine History of Endocrine Disorders: Yes Endocrine Disorders: Diabetes, Non-Insulin dep Are Your Blood Sugars Over 250: No HEENT History of HEENT Disorders: No HEENT Disorders: Cataract Cancer No Psychosocial History of Psychiatric Problem: No Integumentary History of Skin or Integumenta: No Blood Transfusions History of Blood Disorders: No Adverse Reaction to a Blood Tr: No Family Medical History Significant Family History: No Pertinent Family Hx Family Hx: Asthma 19 FATHER, Onset:Unknown Colon cancer maternal grandmother, Onset:Unknown Dementia 19 FATHER, Onset:60 years & older FH: congestive heart failure maternal grandfather, Onset:Unknown FHx: colon cancer Myocardial infarction 19 MOTHER, Onset:60 years & older Review of Systems Constitutional: see HPI EENTM: no symptoms reported Respiratory: no symptoms reported Cardiovascular: chest pain Gastrointestinal: no symptoms reported Genitourinary: no symptoms reported Musculoskeletal: no symptoms reported Skin: no symptoms reported Psychiatric/Neurological: No Symptoms Reported Physical Exam Physical Exam Vital Signs Vital Sign - Last 12Hours Capillary Refill : Less Than 3 Seconds General Appearance: No Apparent Distress, WD/WN, Chronically ill, Obese Eyes: Bilateral Eye Normal Inspection, Bilateral Eye PERRL HEENT: PERRL/EOMI, Normal ENT Inspection, Pharynx Normal Neck: Full Range of Motion, Normal Inspection, Non Tender, Supple, Carotid Bruit Respiratory: Chest Non Tender, Lungs Clear, Normal Breath Sounds, No Accessory Muscle Use, No Respiratory Distress Cardiovascular: Regular Rate, Rhythm, No Edema, No Gallop, No JVD, No Murmur, Normal Peripheral Pulses Gastrointestinal: Normal Bowel Sounds, No Organomegaly, No Pulsatile Mass, Non Tender, Soft Back: Normal Inspection, No CVA Tenderness, No Vertebral Tenderness Extremity: Normal Capillary Refill, Normal Inspection, Normal Range of Motion, Non Tender, No Calf Tenderness, No Pedal Edema Neurologic/Psychiatric: Alert, Oriented x3, No Motor/Sensory Deficits, Normal Mood/Affect Skin: Normal Color, Warm/Dry Lymphatic: No Adenopathy Results Results/Procedures Lab Laboratory Tests 05/01/17 15:05 05/02/17 03:26 Short Stay Diagnosis Discharge Diagnosis-Short Stay Admission Diagnosis Assessment: Chest pain s/p cardiac catheterization byr Dr. Yoon with stent placement in RCA maintained on Plavix and ASA s/p EST and results are pending Long-standing spinal disease Bradycardia consulted Dr Coker 2 weeks ago Obstructive sleep apnea maintained on CPAP therapy Hypertension labile and malignant in the past Diabetes mellitus recently increased oral hypoglycemic agent and will bridge to insulin in the very near future Chronic renal sufficiency Chronic ear dysfunction requiring TM tubes per Dr. Jacques Final Discharge Diagnosis Assessment: Chest pain s/p cardiac catheterization by Dr. Yoon last week with stent placement in RCA maintained on Plavix and ASA s/p EST and results are pending Long-standing spinal disease Bradycardia consulted Dr Coker 2 weeks ago Obstructive sleep apnea maintained on CPAP therapy Hypertension labile and malignant in the past Diabetes mellitus recently increased oral hypoglycemic agent and will bridge to insulin in the very near future Chronic renal sufficiency Chronic ear dysfunction requiring TM tubes per Dr. Jacques Conclusion Plan Plan: Review stress test results Monitor pt DC per Cardiology Clinical Quality Measures AMI/AHF: ASA po Prior to arrival: Yes DVT/VTE Risk/Contraindication: Risk Factor Score Per Nursin RFS Level Per Nursing on Admit: 3=High YULIA CHAMPION DO May 02, 2017 12:01
[2017-05-02] MEDS ORDERED: CLOP75TA69 PO ×2 (14:02)
[2017-05-02] MEDS ORDERED: ASPI-983 PO ×2 (14:02)
[2017-05-02] MEDS ORDERED: NITR0.4T39 SL ×2 (14:02)
[2017-05-02] MEDS ORDERED: AMLO10TA2 PO ×2 (14:15)
[2017-05-02] MEDS ORDERED: SPIR50TA2 PO ×2 (14:15)
[2017-05-02] MEDS ORDERED: MONT10TA24 PO ×2 (14:15)
[2017-05-02] MEDS ORDERED: ALLO100T PO ×2 (14:15)
[2017-05-02] MEDS ORDERED: HYDR-3820 PO ×2 (14:15)
[2017-05-02] MEDS ORDERED: ERGO50006 PO ×2 (14:15)
[2017-05-02] MEDS ORDERED: LORA10TA7 PO ×2 (14:15)
[2017-05-02] MEDS ORDERED: DOXA4TAB2 PO ×2 (14:15)
[2017-05-02] MEDS ORDERED: GLIM2TAB PO ×2 (14:15)
[2017-05-02] MEDS ORDERED: FAMO20TA5 PO ×2 (14:15)
[2017-05-02] MEDS ORDERED: FLUT16SP22 NS ×2 (14:15)
[2017-05-02] MEDS ORDERED: ATOR40TA70 PO ×2 (14:15)
[2017-05-02] MEDS ORDERED: TIZA4TAB3 PO ×2 (14:15)
[2017-05-02] MEDS ORDERED: EPIN0.3P2 IJ ×2 (14:16)
--- NOTE | 2017-05-02 15:59 | Progress Note-Cardiology ---
Cardiology SOAP Progress Note Subjective: Has generally felt well today. No cp. No shortness of breath. Wishes to go home Objective: I&O/Vital Signs Vital Sign - Last 12Hours 05/02/17 05/02/17 05/02/17 05/02/17 04:00 04:00 05:00 06:00 Pulse 58 57 52 Resp 15 14 7 B/P (MAP) 112/74 110/72 118/72 Pulse Ox 98 98 98 O2 Delivery Room Air Room Air Room Air Room Air 05/02/17 05/02/17 05/02/17 05/02/17 07:00 07:00 08:00 08:00 Pulse 63 55 Resp 14 B/P (MAP) 121/72 Pulse Ox 98 97 O2 Delivery Room Air Room Air Room Air 05/02/17 05/02/17 05/02/17 05/02/17 08:00 08:23 08:26 08:28 Temp 96.9 Pulse 65 72 74 B/P (MAP) 147/82 143/63 135/80 Pulse Ox 98 99 98 05/02/17 05/02/17 11:43 12:00 Temp 98.9 Pulse 60 Resp 16 B/P (MAP) 151/92 Pulse Ox 100 O2 Delivery Room Air Room Air Intake and Output 05/03/17 00:00 Intake Total 600 ml Balance 600 ml Weight (Pounds): 258 Weight (Ounces): 3.0 Weight (Calculated Kilograms): 117.882686 Constitutional: AAO x 3, well-developed, well-nourished Respiratory: No accessory muscle use, lungs clear to percussion, lungs clear to auscultation Cardiovascular: regular rate-rhythm, S1 and S2, systolic murmur (faint ZONIA at cardiac base) Gastrointestional: No tender, soft, No guarding, No rebound, audible bowel sounds Extremities: No clubbing, No cyanosis, No significant edema Neurologic/Psychiatric: oriented x 3, grossly intact, power is 5/5 both on sides Skin: No rash on exposed areas, No ulcerations on exposed areas Results/Procedures: Labs Laboratory Tests 05/01/17 21:15: Troponin I < 0.30 05/02/17 03:26: Troponin I < 0.30, White Blood Count 6.9, Red Blood Count 4.31L, Hemoglobin 12.8L, Hematocrit 38L, Mean Corpuscular Volume 88, Mean Corpuscular Hemoglobin 30, Mean Corpuscular Hemoglobin Concent 34, Red Cell Distribution Width 13.6, Platelet Count 225, Mean Platelet Volume 9.8, Neutrophils (%) (Auto) 62, Lymphocytes (%) (Auto) 27, Monocytes (%) (Auto) 9, Eosinophils (%) (Auto) 2, Basophils (%) (Auto) 0, Neutrophils # (Auto) 4.3, Lymphocytes # (Auto) 1.8, Monocytes # (Auto) 0.6, Eosinophils # (Auto) 0.1, Basophils # (Auto) 0.0, Sodium Level 140, Potassium Level 4.2, Chloride Level 109H, Carbon Dioxide Level 20L, Anion Gap 11, Blood Urea Nitrogen 13, Creatinine 0.82, Estimat Glomerular Filtration Rate > 60, BUN/Creatinine Ratio 16, Glucose Level 177H, Calcium Level 8.6, Magnesium Level 1.9, Triglycerides Level 68, Cholesterol Level 89, LDL Cholesterol Direct 39, VLDL Cholesterol 14, HDL Cholesterol 41 Laboratory Tests 05/01/17 15:05 05/02/17 03:26 A/P: Assessment: Chest pain, likely non-cardiac Coronary artery disease. Cardiac cath of 04/26/[address] Yoon showed 70 percent stenosis in the mid RCA that was stented with Xience Alpine 4.015 mm expanded to 4.25 mm; mild disease in the LAD and Left circumflex artery; normal left ventricle size and systolic function and ejection fraction 60 percent MPI of 05/02/17 does not show any LA or cor ischemia and LVEF is normal; isolated PVCs and PACs are seen during the study H/o sinus alicia and PVCs Hypertension Hyperlipidemia Obstructive sleep apnea, treated with CPAP Obesity with BMI 37 History of cholecystectomy Plan: * No evidence of ACS * MPI does not show ischemia or infarction * He feels better and wishes to go home * I had a detailed discussion with him regarding his cardiac w/u during this hosp, importance of compliance with med and with outpatient f/u, and cor risk factor modification. I have advised him to f/u with Dr Yoon and to return to the hosp in case of recurrent or new symptoms * He understands all of the above and states compliance Clinical Quality Measures AMI/AHF: ASA po Prior to arrival: Yes ROXANNE AL MD FACP FACC CCDS May 02, 2017 15:59
--- NOTE | 2017-05-02 16:01 | Discharge Inst-Cardiology ---
Discharge Inst-Cardiac Discharge Medications Continued Medications: Allopurinol (Allopurinol) 100 Mg Tablet 100 MG PO HS, TAB Amlodipine Besylate (Amlodipine Besylate) 10 Mg Tablet 10 MG PO HS, TAB Aspirin (Aspirin EC) 81 Mg Tablet.dr 81 MG PO HS, TAB Atorvastatin Calcium (Atorvastatin Calcium) 40 Mg Tablet 40 MG PO HS, TAB Clopidogrel Bisulfate (Plavix) 75 Mg Tablet 75 MG PO DAILY, TAB Doxazosin Mesylate (Doxazosin Mesylate) 4 Mg Tablet 4 MG PO HS, TAB Epinephrine (Epipen) 0.3 Mg/0.3 Ml Auto.injct 0.3 MG IJ UD PRN for ALLERGIC REACTION, ML Ergocalciferol (Vitamin D2) (Vitamin D2) 50,000 Unit Capsule 20253 UNIT PO MoTh, CAP Famotidine (Famotidine) 20 Mg Tablet 20 MG PO BID, TAB Fluticasone Propionate (Fluticasone Propionate) 16 Gm [place].susp 2 SPRAYS NS DAILY, EA Glimepiride (Glimepiride) 2 Mg Tablet 3 MG PO BID, TAB TAKES 1 & 1/2 (2MG) TABLET Hydrocodone/Acetaminophen (Hydrocodon-Acetaminophn 10-325) 1 Each Tablet 1 TAB PO TID PRN for PAIN-MODERATE, TAB Loratadine (Loratadine) 10 Mg Tablet 10 MG PO DAILY, TAB Montelukast Sodium (Montelukast Sodium) 10 Mg Tablet 10 MG PO HS, TAB Nitroglycerin (Nitroglycerin) 0.4 Mg Tab.subl 0.4 MG SL UD PRN for CHEST PAIN, TAB Potassium Chloride (Potassium Chloride) 10 Meq Tablet.er 10 MEQ PO DAILY, TAB Spironolactone (Spironolactone) 50 Mg Tablet 50 MG PO DAILY, TAB Tizanidine HCl (Tizanidine HCl) 4 Mg Tablet 8 MG PO HS, TAB TAKES 2 (4MG) TABLETS Tizanidine HCl (Tizanidine HCl) 4 Mg Tablet 2 MG PO QID PRN for HEADACHE, TAB TAKES 1/2 (4MG) TABLET Torsemide (Torsemide) 10 Mg Tablet 10 MG PO DAILY, TAB Patient Instructions Patient Instructions: F/u with Dr Yoon next week Orders-Post D/C & Referrals Pneu Vac Indicated: Yes ROXANNE AL MD FACP FAC CCDS May 02, 2017 16:01
--- NOTE | 2017-05-02 22:15 | STRESS TEST ---
DATE OF SERVICE: 05/02/2017 RESTING AND POST REGADENOSON TECHNETIUM 99M TETROFOSMIN WITH SPECT CT IMAGING PRIMARY PHYSICIAN: Dr. Cruz. ORDERING PHYSICIAN: Dr. Al. OTHER PHYSICIAN: Dr. Yoon. CLINICAL DIAGNOSIS: Chest discomfort, coronary artery disease. Baseline images were carried out after injection of 10.98 mCi Technetium 99m Tetrofosmin. This was followed by 0.4 mg of Regadenoson and 30.7 mCi Technetium 99m Tetrofosmin for stress imaging. The electrocardiogram showed sinus rhythm with isolated premature atrial and ventricular contractions throughout the study. He had slight chest pressure following Regadenoson infusion, which resolved in a few minutes. Overall, he tolerated the procedure well. Review of images at rest and following stress does not indicate any significant perfusion defects consistent with myocardial ischemia or infarction. Gated images show normal global left ventricular systolic function with normal regional wall motion. Left ventricular ejection fraction is calculated to be 71%. Left ventricular end diastolic volume is 99 mL. There is no transient ischemic dilatation (1.08). CONCLUSIONS: 1. No evidence of any significant myocardial ischemia or infarction on this study. 2. Normal regional wall motion. 3. Normal global left ventricular systolic function with a calculated ejection fraction of 71%. Job ID: [id number] DocumentID: [id number] Dictated Date: 05/02/2017 14:52:26 Ear Nose And Throat Specialist Date: 05/02/2017 19:49:21 Dictated By: ROXANNE AL MD, MA, FACP, FACC,
== END 2017-05-02 16:00 | disposition home or self-care (01) ==
LOC: EDUNIT# 14:55 → ER 14:57 → ICU 15:59 → UNDOADMOB 15:59 → ICU 16:45
PROVIDERS: ADMIT Internal Medicine; ATTEND Internal Medicine
DX: R07.9 Chest pain, unspecified (principal); I25.10 Atherosclerotic heart disease of native coronary artery without angina pectoris; I12.9 Hypertensive chronic kidney disease with stage 1 through stage 4 chronic kidney disease, or unspecified chronic kidney disease; N18.2 Chronic kidney disease, stage 2 (mild); E11.40 Type 2 diabetes mellitus with diabetic neuropathy, unspecified; G47.33 Obstructive sleep apnea (adult) (pediatric); Z79.02 Long term (current) use of antithrombotics/antiplatelets; Z79.84 Long term (current) use of oral hypoglycemic drugs; Z79.899 Other long term (current) drug therapy; Z95.5 Presence of coronary angioplasty implant and graft
CPT/HCPCS: 36415; 71010; 78452; 80048; 80053; 80061; 83735; 83874; 84484; 85025; 85610; 85730; 93005; 93017; 93041

== ENCOUNTER → 2017-05-12 | Outpatient (CLI) | payer BC ==
[~2017-05-12] MED LIST changes: +ALLO100T PO; +AMLO10TA2 PO; +ATOR40TA70 PO; +CLOP75TA69 PO; +EPIN0.3P2 IJ; +ERGO50006 PO; +FAMO20TA5 PO; +FLUT16SP22 NS; +GLIM2TAB PO; +HYDR-3820 PO; +LORA10TA7 PO; +MONT10TA24 PO; +NITR0.4T39 SL; +SPIR50TA2 PO
== END ==
LOC: CARD 10:40
PROVIDERS: ATTEND Internal Medicine Interventional Cardiology
DX: R07.89 Other chest pain (principal); I10 Essential (primary) hypertension; E11.9 Type 2 diabetes mellitus without complications; R00.1 Bradycardia, unspecified
CPT/HCPCS: 93225; 93226

== ENCOUNTER → 2017-05-12 | Outpatient (CLI) | payer BC | LOC: CARD 10:38 | PROVIDERS: ATTEND Internal Medicine Interventional Cardiology | DX: R07.89 Other chest pain (principal); I10 Essential (primary) hypertension; E11.9 Type 2 diabetes mellitus without complications; R00.1 Bradycardia, unspecified | CPT/HCPCS: 93306 ==

== ENCOUNTER 2017-05-13 17:49 | Emergency (ER) | payer BC | END 2017-05-13 18:09 | disposition left against medical advice (07) | LOC: EDUNIT# 17:49 → ER 17:51 | DX: M54.6 Pain in thoracic spine (principal) ==

== ENCOUNTER 2017-05-15 14:53 | Outpatient (RCR) | payer BC | END 2017-05-17 | disposition home or self-care (01) | LOC: CARD 14:53 | PROVIDERS: ATTEND Internal Medicine Interventional Cardiology | DX: R00.1 Bradycardia, unspecified (principal); R07.89 Other chest pain | CPT/HCPCS: 93270 ==

== ENCOUNTER 2017-06-12 08:01 | Outpatient (RCR) | payer BC | END 2017-08-20 | LOC: CARD 08:01 | PROVIDERS: ATTEND Internal Medicine Interventional Cardiology | DX: R00.1 Bradycardia, unspecified (principal); R07.89 Other chest pain ==

== ENCOUNTER → 2017-09-15 | Outpatient (CLI) | payer BC | LOC: CARD 12:33 | PROVIDERS: ATTEND Internal Medicine Interventional Cardiology | DX: I77.810 Thoracic aortic ectasia (principal); I25.10 Atherosclerotic heart disease of native coronary artery without angina pectoris | CPT/HCPCS: 93306 ==

== ENCOUNTER → 2017-11-18 | Outpatient (CLI) | payer BC | LOC: CARD 08:39 | PROVIDERS: ATTEND Internal Medicine Interventional Cardiology | DX: I77.810 Thoracic aortic ectasia (principal); I25.10 Atherosclerotic heart disease of native coronary artery without angina pectoris | CPT/HCPCS: 93306 ==

== ENCOUNTER 2017-12-10 14:34 | Day surgery (SDC) | payer BC ==
[~2017-12-10] VITALS: Ht 177.8 cm; Wt 116.1 kg
[2017-12-10] MEDS ORDERED: ASPIRIN 81 MG CHEW (CHILDREN'S ASA) PO ONE (14:45)
--- OUTSIDE RECORDS SUMMARY | 2017-12-10 14:50 | XMS REPORT | Continuity of Care Document ---
Author Author [facility] Organization [facility] Address Unknown Phone Unavailable Allergies Active Description Code Type Severity Reaction Onset Reported/Identified Relationship to Patient Clinical Status Yes Penicillins [id number] Drug Allergy Severe Rash 06/01/2011 Yes diclofenac sodium [id number] Drug Allergy Unknown N/A 12/13/2014 Yes lidocaine HCl [id number] Drug Allergy Unknown LOW PULSE 12/13/2014 Medications There is no data. Problems Date Dx Coded Attending Type Code Diagnosis Diagnosed By 06/01/2011 Ot 276.8 HYPOPOTASSEMIA 06/01/2011 Ot 401.9 HYPERTENSION NOS 06/01/2011 Ot 780.4 DIZZINESS AND GIDDINESS 06/01/2011 Ot 784.0 HEADACHE 08/10/2011 Ot 327.23 OBSTRUCTIVE SLEEP APNEA (ADULT) (PEDIATR 09/25/2011 Ot 593.2 CYST OF KIDNEY, ACQUIRED 09/25/2011 Ot 789.01 ABDOMINAL PAIN, RIGHT UPPER QUADRANT 10/17/2011 Ot 787.99 OTHER GI SYSTEM SYMPTOMS 10/17/2011 Ot 789.01 ABDOMINAL PAIN, RIGHT UPPER QUADRANT 10/17/2011 Ot V16.0 FAMILY HX-GI MALIGNANCY 10/21/2011 Ot 401.9 HYPERTENSION NOS 10/21/2011 Ot 535.40 OTH SPECIFIED GASTRITIS,W/O MENTION OF H 10/21/2011 Ot 535.50 UNSP GASTRITIS GASTRODUODENITIS W/O ME 11/13/2011 Ot 789.01 ABDOMINAL PAIN, RIGHT UPPER QUADRANT 04/20/2014 JANEEN CHAMPION DO Ot 427.89 CARDIAC DYSRHYTHMIAS NEC 07/19/2014 Ot V72.84 07/19/2014 Ot 789.01 07/19/2014 ANTONIO PEDRAZA, JUNE Valdivia Ot 478.19 07/19/2014 ANTONIO PEDRAZA, JUNE Valdivia Ot 780.4 07/19/2014 Ot 427.89 12/13/2014 Ot 427.89 12/13/2014 DONITA PEDRAZA, BRI [place] Ot 789.03 ABDOMINAL PAIN, RIGHT LOWER QUADRANT 04/27/2015 SATHISH SALOMON MD Ot 722.51 04/27/2015 SATHISH SALOMON MD Ot 723.0 08/17/2015 Ot V72.84 08/17/2015 Ot 789.01 08/17/2015 JUNE ALVAREZ MD Ot 478.19 08/17/2015 JUNE ALVAREZ MD Ot 780.4 08/17/2015 Ot 427.89 08/17/2015 SATHISH SALOMON MD Ot 722.51 08/17/2015 SATHISH SALOMON MD Ot 723.0 05/17/2016 Ot V72.84 EXAM PRE- OPERATIVE NOS 05/17/2016 Ot 789.01 ABDOMINAL PAIN, RIGHT UPPER QUADRANT 05/17/2016 JUNE ALVAREZ MD Ot 478.19 OTHER DISEASE OF NASAL CAVITY AND SINUSE 05/17/2016 JUNE ALVAREZ MD Ot 780.4 DIZZINESS AND GIDDINESS 05/17/2016 Ot 427.89 CARDIAC DYSRHYTHMIAS NEC 05/17/2016 SATHISH SALOMON MD Ot 722.51 THORACIC DISC DEGEN 05/17/2016 SATHISH SALOMON MD Ot 723.0 CERVICAL SPINAL STENOSIS 05/17/2016 Ot V72.84 EXAM PRE- OPERATIVE NOS 05/17/2016 Ot 789.01 ABDOMINAL PAIN, RIGHT UPPER QUADRANT 05/17/2016 JUNE ALVAREZ MD Ot 478.19 OTHER DISEASE OF NASAL CAVITY AND SINUSE 05/17/2016 JUNE ALVAREZ MD Ot 780.4 DIZZINESS AND GIDDINESS 05/17/2016 Ot 427.89 CARDIAC DYSRHYTHMIAS NEC 05/17/2016 SATHISH SALOMON MD Ot 722.51 THORACIC DISC DEGEN 05/17/2016 SATHISH SALOMON MD Ot 723.0 CERVICAL SPINAL STENOSIS 05/17/2016 JORDAN GRANADOS APRN Ot M47.892 OTHER SPONDYLOSIS, CERVICAL REGION 05/17/2016 JORDAN GRANADOS APRN Ot M48.02 SPINAL STENOSIS, CERVICAL REGION 05/17/2016 JORDAN GRANADOS APRN Ot M54.2 CERVICALGIA 05/17/2016 JORDAN GRANADOS APRN Ot Z98.1 ARTHRODESIS STATUS 05/17/2016 Ot V72.84 EXAM PRE- OPERATIVE NOS 05/17/2016 Ot 789.01 ABDOMINAL PAIN, RIGHT UPPER QUADRANT 05/17/2016 JUNE ALVAREZ MD Ot 478.19 OTHER DISEASE OF NASAL CAVITY AND SINUSE 05/17/2016 JUNE ALVAREZ MD Ot 780.4 DIZZINESS AND GIDDINESS 05/17/2016 Ot 427.89 CARDIAC DYSRHYTHMIAS NEC 05/17/2016 SATHISH SALOMON MD Ot 722.51 THORACIC DISC DEGEN 05/17/2016 SATHISH SALOMON MD Ot 723.0 CERVICAL SPINAL STENOSIS 05/24/2016 Ot V72.84 EXAM PRE- OPERATIVE NOS 05/24/2016 Ot 789.01 ABDOMINAL PAIN, RIGHT UPPER QUADRANT 05/24/2016 JUNE ALVAREZ MD Ot 478.19 OTHER DISEASE OF NASAL CAVITY AND SINUSE 05/24/2016 JUNE ALVAREZ MD Ot 780.4 DIZZINESS AND GIDDINESS 05/24/2016 Ot 427.89 CARDIAC DYSRHYTHMIAS NEC 05/24/2016 SATHISH SALOMON MD Ot 722.51 THORACIC DISC DEGEN 05/24/2016 SATHISH SALOMON MD Ot 723.0 CERVICAL SPINAL STENOSIS 04/27/2017 JAYCEE MILNER JANEEN Ot 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 04/27/2017 JAYCEE MILNER JANEEN Ot E78.5 HYPERLIPIDEMIA, UNSPECIFIED 04/27/2017 JAYCEE MILNER JANEEN Ot G47.33 OBSTRUCTIVE SLEEP APNEA (ADULT) (PEDIATR 04/27/2017 CHAMPION DO JANEEN Ot I12.9 HYPERTENSIVE CHRONIC KIDNEY DISEASE W ST 04/27/2017 JAYCEE MILNER JANEEN Ot I25.110 ATHSCL HEART DISEASE OF [place] COR ART W 04/27/2017 JAYCEE MILNER JANEEN Ot J44.9 CHRONIC OBSTRUCTIVE PULMONARY DISEASE, U 04/27/2017 JAYCEE MILNER JANEEN Ot N18.9 CHRONIC KIDNEY DISEASE, UNSPECIFIED 04/27/2017 JAYCEE MILNER JANEEN Ot Z79.899 OTHER DIRECTOR OF DONOR RELATIONS (CURRENT) DRUG THERAPY 04/27/2017 JAYCEE MILNER JANEEN Ot Z82.49 FAMILY HX OF ISCHEM HEART DIS AND OTH DI 05/02/2017 JAYCEE MILNER JANEEN Ot E11.40 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 WITH DIABETIC N 05/02/2017 JAYCEE DO JANEEN Ot G47.33 OBSTRUCTIVE SLEEP APNEA (ADULT) (PEDIATR 05/02/2017 JAYCEE DO JANEEN Ot I12.9 HYPERTENSIVE CHRONIC KIDNEY DISEASE W ST 05/02/2017 CHAMPION DO, JANEEN Ot I25.10 ATHSCL HEART DISEASE OF [place] CORONARY 05/02/2017 CHAMPION DO, JANEEN Ot N18.2 CHRONIC KIDNEY DISEASE, STAGE 2 (MILD) 05/02/2017 CHAMPION DO, JANEEN Ot R07.9 CHEST PAIN, UNSPECIFIED 05/02/2017 CHAMPION DO JANEEN Ot Z79.02 DIRECTOR OF DONOR RELATIONS (CURRENT) USE OF ANTITHROMBOTI 05/02/2017 JAYCEE DO, JANEEN Ot Z79.84 DIRECTOR OF DONOR RELATIONS (CURRENT) USE OF ORAL HYPOGLYC 05/02/2017 CHAMPION DO, JANEEN Ot Z79.899 OTHER DIRECTOR OF DONOR RELATIONS (CURRENT) DRUG THERAPY 05/02/2017 CHAMPION DO, JANEEN Ot Z95.5 PRESENCE OF CORONARY ANGIOPLASTY IMPLANT 05/02/2017 JAYCEE DO JANEEN Ot E11.40 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 WITH DIABETIC N 05/02/2017 JAYCEE DO, JANEEN Ot G47.33 OBSTRUCTIVE SLEEP APNEA (ADULT) (PEDIATR 05/02/2017 JAYCEE DO, JANEEN Ot I12.9 HYPERTENSIVE CHRONIC KIDNEY DISEASE W ST 05/02/2017 JAYCEE DO, JANEEN Ot I25.10 ATHSCL HEART DISEASE OF [place] CORONARY 05/02/2017 JAYCEE DO, JANEEN Ot N18.2 CHRONIC KIDNEY DISEASE, STAGE 2 (MILD) 05/02/2017 JAYCEE DO JANEEN Ot R07.9 CHEST PAIN, UNSPECIFIED 05/02/2017 JAYCEE DO JANEEN Ot Z79.02 ASSISTED (CURRENT) USE OF ANTITHROMBOTI 05/02/2017 JAYCEE DO JANEEN Ot Z79.84 DIRECTOR OF DONOR RELATIONS (CURRENT) USE OF ORAL HYPOGLYC 05/02/2017 JAYCEE DO JANEEN Ot Z79.899 OTHER DIRECTOR OF DONOR RELATIONS (CURRENT) DRUG THERAPY 05/02/2017 JAYCEE DO JANEEN Ot Z95.5 PRESENCE OF CORONARY ANGIOPLASTY IMPLANT 05/05/2017 JAYCEE DO JANEEN Ot 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 05/05/2017 JAYCEE DO JANEEN Ot E78.5 HYPERLIPIDEMIA, UNSPECIFIED 05/05/2017 JAYCEE DO, JANEEN Ot G47.33 OBSTRUCTIVE SLEEP APNEA (ADULT) (PEDIATR 05/05/2017 JAYCEE DO, JANEEN Ot I12.9 HYPERTENSIVE CHRONIC KIDNEY DISEASE W ST 05/05/2017 CHAMPION DO, JANEEN Ot I25.110 ATHSCL HEART DISEASE OF [place] ART W 05/05/2017 CHAMPION DO, JANEEN Ot J44.9 CHRONIC OBSTRUCTIVE PULMONARY DISEASE, U 05/05/2017 CHAMPION DO, JANEEN Ot N18.9 CHRONIC KIDNEY DISEASE, UNSPECIFIED 05/05/2017 CHAMPION DO, JANEEN Ot Z79.899 OTHER DIRECTOR OF DONOR RELATIONS (CURRENT) DRUG THERAPY 05/05/2017 CHAMPION DO, JANEEN Ot Z82.49 FAMILY HX OF ISCHEM HEART DIS AND OTH DI 05/06/2017 CHAMPION DO, JANEEN Ot 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 05/06/2017 CHAMPION DO, JANEEN Ot E78.5 HYPERLIPIDEMIA, UNSPECIFIED 05/06/2017 HCAMPION DO, JANEEN Ot G47.33 OBSTRUCTIVE SLEEP APNEA (ADULT) (PEDIATR 05/06/2017 CHAMPION DO, JANEEN Ot I12.9 HYPERTENSIVE CHRONIC KIDNEY DISEASE W ST 05/06/2017 CHAMPION DO, JANEEN Ot I25.110 ATHSCL HEART DISEASE OF [place] COR ART W 05/06/2017 CHAMPION DO, JANEEN Ot J44.9 CHRONIC OBSTRUCTIVE PULMONARY DISEASE, U 05/06/2017 CHAMPION DO, JANEEN Ot N18.9 CHRONIC KIDNEY DISEASE, UNSPECIFIED 05/06/2017 CHAMPION DO, JANEEN Ot Z79.899 OTHER DIRECTOR OF DONOR RELATIONS (CURRENT) DRUG THERAPY 05/06/2017 CHAMPION DO, JANEEN Ot Z82.49 FAMILY HX OF ISCHEM HEART DIS AND OTH DI 05/13/2017 DONITA PEDRAZA, BRI [place] Ot M54.6 PAIN IN THORACIC SPINE 05/14/2017 EDU PEDRAZA, Almaz ACOSTA Ot E11.9 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 WITHOUT COMPLIC 05/14/2017 EDU PEDRAZA, Almaz ACOSTA Ot I10 ESSENTIAL (PRIMARY) HYPERTENSION 05/14/2017 EDU PEDRAZA, Almaz ACOSTA Ot R00.1 BRADYCARDIA, UNSPECIFIED 05/14/2017 EDU PEDRAZA, Almaz ACOSTA Ot R07.89 OTHER CHEST PAIN 05/14/2017 EDU PEDRAZA, Almaz ACOSTA Ot E11.9 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 WITHOUT COMPLIC 05/14/2017 EDU PEDRAZA, Almaz ACOSTA Ot I10 ESSENTIAL (PRIMARY) HYPERTENSION 05/14/2017 EDU PEDRAZA, M DAVE Ot R00.1 BRADYCARDIA, UNSPECIFIED 05/14/2017 EDU PEDRAZA, M DAVE Ot R07.89 OTHER CHEST PAIN 05/16/2017 EDU PEDRAZA, M DAVE Ot R00.1 BRADYCARDIA, UNSPECIFIED 05/16/2017 EDU PEDRAZA, M DAVE Ot R07.89 OTHER CHEST PAIN 05/17/2017 EDU PEDRAZA, M DAVE Ot R00.1 BRADYCARDIA, UNSPECIFIED 05/17/2017 EDU PEDRAZA, M DAVE Ot R07.89 OTHER CHEST PAIN 05/21/2017 EDU PEDRAZA, M DAVE Ot E11.9 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 WITHOUT COMPLIC 05/21/2017 EDU PEDRAZA, M DAVE Ot I10 ESSENTIAL (PRIMARY) HYPERTENSION 05/21/2017 EDU PEDRAZA, M DAVE Ot R00.1 BRADYCARDIA, UNSPECIFIED 05/21/2017 EDU PEDRAZA, M DAVE Ot R07.89 OTHER CHEST PAIN 05/21/2017 EDU PEDRAZA, M DAVE Ot E11.9 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 WITHOUT COMPLIC 05/21/2017 EDU PEDRAZA, M DAVE Ot I10 ESSENTIAL (PRIMARY) HYPERTENSION 05/21/2017 EDU PEDRAZA, M DAVE Ot R00.1 BRADYCARDIA, UNSPECIFIED 05/21/2017 EDU PEDRAZA M DAVE Ot R07.89 OTHER CHEST PAIN 05/23/2017 EDU PEDRAZA M DAEV Ot R00.1 BRADYCARDIA, UNSPECIFIED 05/23/2017 EDU PEDRAZA M DAVE Ot R07.89 OTHER CHEST PAIN 05/23/2017 EDU PEDRAZA, M DAVE Ot R00.1 BRADYCARDIA, UNSPECIFIED 05/23/2017 EDU PEDRAZA, M DAVE Ot R07.89 OTHER CHEST PAIN 05/23/2017 EDU PEDRAZA, M DAVE Ot R00.1 BRADYCARDIA, UNSPECIFIED 05/23/2017 EDU PEDRAZA, M DAVE Ot R07.89 OTHER CHEST PAIN 05/23/2017 EDU PEDRAZA, M DAVE Ot R00.1 BRADYCARDIA, UNSPECIFIED 05/23/2017 Almaz SORENSEN MD Ot R07.89 OTHER CHEST PAIN 08/20/2017 Almaz SORENSEN MD Ot R00.1 BRADYCARDIA, UNSPECIFIED 08/20/2017 Almaz SORENSEN MD Ot R07.89 OTHER CHEST PAIN 08/21/2017 Almaz SORENSEN MD Ot R00.1 BRADYCARDIA, UNSPECIFIED 08/21/2017 Almaz SORENSEN MD Ot R07.89 OTHER CHEST PAIN 09/08/2017 ANTONIO PEDRAZA, JUNE Vladivia Ot 478.19 OTHER DISEASE OF NASAL CAVITY AND SINUSE 09/08/2017 JUNE ALVAREZ MD Ot 780.4 DIZZINESS AND GIDDINESS 09/08/2017 Ot 427.89 CARDIAC DYSRHYTHMIAS NEC 09/08/2017 AIME PEDRAZA, SATHISH Schaffer Ot 722.51 THORACIC DISC DEGEN 09/08/2017 AIME PEDRAZA, SATHISH cShaffer Ot 723.0 CERVICAL SPINAL STENOSIS 09/08/2017 Almaz SORENSEN MD Ot E11.9 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 WITHOUT COMPLIC 09/08/2017 Almaz SORENSEN MD Ot I10 ESSENTIAL (PRIMARY) HYPERTENSION 09/08/2017 Almaz SORENSEN MD Ot R00.1 BRADYCARDIA, UNSPECIFIED 09/08/2017 Almaz SORENSEN MD Ot R07.89 OTHER CHEST PAIN 09/08/2017 Almaz SORENSEN MD Ot E11.9 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 WITHOUT COMPLIC 09/08/2017 Almaz SORENSEN MD Ot I10 ESSENTIAL (PRIMARY) HYPERTENSION 09/08/2017 Almaz SORENSEN MD Ot R00.1 BRADYCARDIA, UNSPECIFIED 09/08/2017 Almaz SORENSEN MD Ot R07.89 OTHER CHEST PAIN 09/08/2017 Almaz SORENSEN MD Ot R00.1 BRADYCARDIA, UNSPECIFIED 09/08/2017 Almaz SORENSEN MD Ot R07.89 OTHER CHEST PAIN 09/16/2017 Almaz SORENSEN MD Ot I25.10 ATHSCL HEART DISEASE OF [place] CORONARY 09/16/2017 Almaz SORENSEN MD Ot 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 10/27/2017 Almaz SORENSEN MD Ot I25.10 ATHSCL HEART DISEASE OF [place] CORONARY 10/27/2017 EDU PEDRAZA, Almaz ACOSTA Ot 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 11/19/2017 Almaz SORENSEN MD Ot I25.10 ATHSCL HEART DISEASE OF [place] CORONARY 11/19/2017 EDU PEDRAZA, Almaz ACOSTA Ot 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 12/10/2017 Almaz SORENSEN MD Ot I25.10 ATHSCL HEART DISEASE OF [place] CORONARY 12/10/2017 EDU PEDRAZA, Almaz ACOSTA Ot 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 12/10/2017 ANTONIO PEDRAZA, JUNE Valdivia Ot 478.19 OTHER DISEASE OF NASAL CAVITY AND SINUSE 12/10/2017 ANTONIO PEDRAZA, JUNE Valdivia Ot 780.4 DIZZINESS AND GIDDINESS 12/10/2017 Ot 427.89 CARDIAC DYSRHYTHMIAS NEC 12/10/2017 AIME PEDRAZA, SATHISH Schaffer Ot 722.51 THORACIC DISC DEGEN 12/10/2017 AIME PEDRAZA, SATHISH Schaffer Ot 723.0 CERVICAL SPINAL STENOSIS 12/10/2017 Almaz SORENSEN MD Ot E11.9 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 WITHOUT COMPLIC 12/10/2017 Almaz SORENSEN MD Ot I10 ESSENTIAL (PRIMARY) HYPERTENSION 12/10/2017 Almaz SORENSEN MD Ot R00.1 BRADYCARDIA, UNSPECIFIED 12/10/2017 Almaz SORENSEN MD Ot R07.89 OTHER CHEST PAIN 12/10/2017 Almaz SORENSEN MD Ot E11.9 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 WITHOUT COMPLIC 12/10/2017 Almaz SORENSEN MD Ot I10 ESSENTIAL (PRIMARY) HYPERTENSION 12/10/2017 Almaz SORENSEN MD Ot R00.1 BRADYCARDIA, UNSPECIFIED 12/10/2017 Almaz SORENSEN MD Ot R07.89 OTHER CHEST PAIN 12/10/2017 Almaz SORENSEN MD Ot R00.1 BRADYCARDIA, UNSPECIFIED 12/10/2017 Almaz SORENSEN MD Ot R07.89 OTHER CHEST PAIN 12/10/2017 Almaz SORENSEN MD Ot I25.10 ATHSCL HEART DISEASE OF [place] CORONARY 12/10/2017 Almaz SORENSEN MD Ot 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 12/10/2017 Almaz SORENSEN MD, Ot I25.10 ATHSCL HEART DISEASE OF [place] CORONARY 12/10/2017 Almaz SORENSEN MD, Ot 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 Procedures There is no data. Results Test Result Range Complete blood count (CBC) with automated white blood cell (WBC) differential - 04/25/17 18:15 Blood leukocytes automated count (number/volume) 7.1 10*3/uL 4.3-11.0 Blood erythrocytes automated count (number/volume) 4.73 10*6/uL 4.35-5.85 Venous blood hemoglobin measurement (mass/volume) 14.1 g/dL 13.3-17.7 Blood hematocrit (volume fraction) 41 % 40-54 Automated erythrocyte mean corpuscular volume 88 [foz_us] 80-99 Automated erythrocyte mean corpuscular hemoglobin (mass per erythrocyte) 30 pg 25-34 Automated erythrocyte mean corpuscular hemoglobin concentration measurement ( mass/volume) 34 g/dL 32-36 Automated erythrocyte distribution width ratio 13.4 % 10.0-14.5 Automated blood platelet count (count/volume) 242 10*3/uL 130-400 Automated blood platelet mean volume measurement 9.5 [foz_us] 7.4-10.4 Automated blood neutrophils/100 leukocytes 68 % 42-75 Automated blood lymphocytes/100 leukocytes 25 % 12-44 Blood monocytes/100 leukocytes 6 % 0-12 Automated blood eosinophils/100 leukocytes 2 % 0-10 Automated blood basophils/100 leukocytes 0 % 0-10 Blood neutrophils automated count (number/volume) 4.8 10*3 1.8-7.8 Blood lymphocytes automated count (number/volume) 1.8 10*3 1.0-4.0 Blood monocytes automated count (number/volume) 0.5 10*3 0.0-1.0 Automated eosinophil count 0.1 10*3/uL 0.0-0.3 Automated blood basophil count (count/volume) 0.0 10*3/uL 0.0-0.1 PT panel in platelet poor plasma by coagulation assay - 04/25/17 18:15 Prothrombin time (PT) in platelet poor plasma by coagulation assay 13.1 s 12.2-14.7 INR in platelet poor plasma or blood by coagulation assay 1.0 0.8-1.4 Activated partial thromboplastin time (aPTT) in platelet poor plasma bycoagulation assay - 04/25/17 18:15 Activated partial thromboplastin time (aPTT) in platelet poor plasma bycoagulation assay 27 s 24-35 Comprehensive metabolic panel - 04/25/17 18:15 Serum or plasma sodium measurement (moles/volume) 141 mmol/L 135-145 Serum or plasma potassium measurement (moles/volume) 3.6 mmol/L 3.6-5.0 Serum or plasma chloride measurement (moles/volume) 106 mmol/L 98-107 Carbon dioxide 24 mmol/L 21-32 Serum or plasma anion gap determination (moles/volume) 11 mmol/L 5-14 Serum or plasma urea nitrogen measurement (mass/volume) 13 mg/dL 7-18 Serum or plasma creatinine measurement (mass/volume) 0.90 mg/dL 0.60-1.30 Serum or plasma urea nitrogen/creatinine mass ratio 14 NRG Serum or plasma creatinine measurement with calculation of estimated glomerular filtration rate > NRG Serum or plasma glucose measurement (mass/volume) 113 mg/dL 70-105 Serum or plasma calcium measurement (mass/volume) 9.0 mg/dL 8.5-10.1 Serum or plasma total bilirubin measurement (mass/volume) 0.6 mg/dL 0.1-1.0 Serum or plasma alkaline phosphatase measurement (enzymatic activity/volume) 56 U/L 40-136 Serum or plasma aspartate aminotransferase measurement (enzymatic activity/ volume) 17 U/L 5-34 Serum or plasma alanine aminotransferase measurement (enzymatic activity/volume ) 36 U/L 0-55 Serum or plasma protein measurement (mass/volume) 6.6 g/dL 6.4-8.2 Serum or plasma albumin measurement (mass/volume) 4.3 g/dL 3.2-4.5 Magnesium - 04/25/17 18:15 Magnesium 1.9 mg/dL 1.8-2.4 Serum or plasma troponin i.cardiac measurement (mass/volume) - 04/25/17 18:15 Serum or plasma troponin i.cardiac measurement (mass/volume) < ng/ mL <0.30 Myoglobin, serum - 04/25/17 18:15 Myoglobin, serum 67.3 ng/mL 10.0-92.0 Serum or plasma troponin i.cardiac measurement (mass/volume) - 04/26/17 00:32 Serum or plasma troponin i.cardiac measurement (mass/volume) < ng/ mL <0.30 Lipid 1996 panel - 04/26/17 06:06 Serum or plasma triglyceride measurement (mass/volume) 116 mg/dL <150 Serum or plasma cholesterol measurement (mass/volume) 131 mg/dL < 200 Serum or plasma cholesterol in HDL measurement (mass/volume) 39 mg/ dL 40-60 Cholesterol in LDL [mass/volume] in serum or plasma by direct assay 90 mg/dL 1-129 Serum or plasma cholesterol in VLDL measurement (mass/volume) 23 mg/ dL 5-40 Automated blood complete blood count (hemogram) panel - 04/27/17 07:07 Blood leukocytes automated count (number/volume) 6.5 10*3/uL 4.3-11.0 Blood erythrocytes automated count (number/volume) 4.60 10*6/uL 4.35-5.85 Venous blood hemoglobin measurement (mass/volume) 13.7 g/dL 13.3-17.7 Blood hematocrit (volume fraction) 40 % 40-54 Automated erythrocyte mean corpuscular volume 87 [foz_us] 80-99 Automated erythrocyte mean corpuscular hemoglobin (mass per erythrocyte) 30 pg 25-34 Automated erythrocyte mean corpuscular hemoglobin concentration measurement ( mass/volume) 34 g/dL 32-36 Automated erythrocyte distribution width ratio 13.6 % 10.0-14.5 Automated blood platelet count (count/volume) 209 10*3/uL 130-400 Automated blood platelet mean volume measurement 9.5 [foz_us] 7.4-10.4 Whole blood basic metabolic panel - 04/27/17 07:07 Serum or plasma sodium measurement (moles/volume) 139 mmol/L 135-145 Serum or plasma potassium measurement (moles/volume) 3.9 mmol/L 3.6-5.0 Serum or plasma chloride measurement (moles/volume) 110 mmol/L 98-107 Carbon dioxide 19 mmol/L 21-32 Serum or plasma anion gap determination (moles/volume) 10 mmol/L 5-14 Serum or plasma urea nitrogen measurement (mass/volume) 10 mg/dL 7-18 Serum or plasma creatinine measurement (mass/volume) 0.77 mg/dL 0.60-1.30 Serum or plasma urea nitrogen/creatinine mass ratio 13 NRG Serum or plasma creatinine measurement with calculation of estimated glomerular filtration rate > NRG Serum or plasma glucose measurement (mass/volume) 145 mg/dL 70-105 Serum or plasma calcium measurement (mass/volume) 8.8 mg/dL 8.5-10.1 Complete blood count (CBC) with automated white blood cell (WBC) differential - 05/01/17 15:05 Blood leukocytes automated count (number/volume) 8.7 10*3/uL 4.3-11.0 Blood erythrocytes automated count (number/volume) 4.81 10*6/uL 4.35-5.85 Venous blood hemoglobin measurement (mass/volume) 14.4 g/dL 13.3-17.7 Blood hematocrit (volume fraction) 42 % 40-54 Automated erythrocyte mean corpuscular volume 87 [foz_us] 80-99 Automated erythrocyte mean corpuscular hemoglobin (mass per erythrocyte) 30 pg 25-34 Automated erythrocyte mean corpuscular hemoglobin concentration measurement ( mass/volume) 35 g/dL 32-36 Automated erythrocyte distribution width ratio 13.4 % 10.0-14.5 Automated blood platelet count (count/volume) 245 10*3/uL 130-400 Automated blood platelet mean volume measurement 9.5 [foz_us] 7.4-10.4 Automated blood neutrophils/100 leukocytes 75 % 42-75 Automated blood lymphocytes/100 leukocytes 17 % 12-44 Blood monocytes/100 leukocytes 6 % 0-12 Automated blood eosinophils/100 leukocytes 1 % 0-10 Automated blood basophils/100 leukocytes 0 % 0-10 Blood neutrophils automated count (number/volume) 6.6 10*3 1.8-7.8 Blood lymphocytes automated count (number/volume) 1.5 10*3 1.0-4.0 Blood monocytes automated count (number/volume) 0.6 10*3 0.0-1.0 Automated eosinophil count 0.1 10*3/uL 0.0-0.3 Automated blood basophil count (count/volume) 0.0 10*3/uL 0.0-0.1 PT panel in platelet poor plasma by coagulation assay - 05/01/17 15:05 Prothrombin time (PT) in platelet poor plasma by coagulation assay 12.6 s 12.2-14.7 INR in platelet poor plasma or blood by coagulation assay 0.9 0.8-1.4 Activated partial thromboplastin time (aPTT) in platelet poor plasma bycoagulation assay - 05/01/17 15:05 Activated partial thromboplastin time (aPTT) in platelet poor plasma bycoagulation assay 28 s 24-35 Comprehensive metabolic panel - 05/01/17 15:05 Serum or plasma sodium measurement (moles/volume) 140 mmol/L 135-145 Serum or plasma potassium measurement (moles/volume) 3.6 mmol/L 3.6-5.0 Serum or plasma chloride measurement (moles/volume) 105 mmol/L 98-107 Carbon dioxide 25 mmol/L 21-32 Serum or plasma anion gap determination (moles/volume) 10 mmol/L 5-14 Serum or plasma urea nitrogen measurement (mass/volume) 16 mg/dL 7-18 Serum or plasma creatinine measurement (mass/volume) 1.01 mg/dL 0.60-1.30 Serum or plasma urea nitrogen/creatinine mass ratio 16 NRG Serum or plasma creatinine measurement with calculation of estimated glomerular filtration rate > NRG Serum or plasma glucose measurement (mass/volume) 244 mg/dL 70-105 Serum or plasma calcium measurement (mass/volume) 9.7 mg/dL 8.5-10.1 Serum or plasma total bilirubin measurement (mass/volume) 0.6 mg/dL 0.1-1.0 Serum or plasma alkaline phosphatase measurement (enzymatic activity/volume) 59 U/L 40-136 Serum or plasma aspartate aminotransferase measurement (enzymatic activity/ volume) 16 U/L 5-34 Serum or plasma alanine aminotransferase measurement (enzymatic activity/volume ) 39 U/L 0-55 Serum or plasma protein measurement (mass/volume) 7.2 g/dL 6.4-8.2 Serum or plasma albumin measurement (mass/volume) 4.6 g/dL 3.2-4.5 Magnesium - 05/01/17 15:05 Magnesium 1.9 mg/dL 1.8-2.4 Serum or plasma troponin i.cardiac measurement (mass/volume) - 05/01/17 15:05 Serum or plasma troponin i.cardiac measurement (mass/volume) < ng/ mL <0.30 Myoglobin, serum - 05/01/17 15:05 Myoglobin, serum 34.3 ng/mL 10.0-92.0 Serum or plasma troponin i.cardiac measurement (mass/volume) - 05/01/17 21:15 Serum or plasma troponin i.cardiac measurement (mass/volume) < ng/ mL <0.30 Whole blood basic metabolic panel - 05/02/17 03:26 Serum or plasma sodium measurement (moles/volume) 140 mmol/L 135-145 Serum or plasma potassium measurement (moles/volume) 4.2 mmol/L 3.6-5.0 Serum or plasma chloride measurement (moles/volume) 109 mmol/L 98-107 Carbon dioxide 20 mmol/L 21-32 Serum or plasma anion gap determination (moles/volume) 11 mmol/L 5-14 Serum or plasma urea nitrogen measurement (mass/volume) 13 mg/dL 7-18 Serum or plasma creatinine measurement (mass/volume) 0.82 mg/dL 0.60-1.30 Serum or plasma urea nitrogen/creatinine mass ratio 16 NRG Serum or plasma creatinine measurement with calculation of estimated glomerular filtration rate > NRG Serum or plasma glucose measurement (mass/volume) 177 mg/dL 70-105 Serum or plasma calcium measurement (mass/volume) 8.6 mg/dL 8.5-10.1 Magnesium - 05/02/17 03:26 Magnesium 1.9 mg/dL 1.8-2.4 Complete blood count (CBC) with automated white blood cell (WBC) differential - 05/02/17 03:26 Blood leukocytes automated count (number/volume) 6.9 10*3/uL 4.3-11.0 Blood erythrocytes automated count (number/volume) 4.31 10*6/uL 4.35-5.85 Venous blood hemoglobin measurement (mass/volume) 12.8 g/dL 13.3-17.7 Blood hematocrit (volume fraction) 38 % 40-54 Automated erythrocyte mean corpuscular volume 88 [foz_us] 80-99 Automated erythrocyte mean corpuscular hemoglobin (mass per erythrocyte) 30 pg 25-34 Automated erythrocyte mean corpuscular hemoglobin concentration measurement ( mass/volume) 34 g/dL 32-36 Automated erythrocyte distribution width ratio 13.6 % 10.0-14.5 Automated blood platelet count (count/volume) 225 10*3/uL 130-400 Automated blood platelet mean volume measurement 9.8 [foz_us] 7.4-10.4 Automated blood neutrophils/100 leukocytes 62 % 42-75 Automated blood lymphocytes/100 leukocytes 27 % 12-44 Blood monocytes/100 leukocytes 9 % 0-12 Automated blood eosinophils/100 leukocytes 2 % 0-10 Automated blood basophils/100 leukocytes 0 % 0-10 Blood neutrophils automated count (number/volume) 4.3 10*3 1.8-7.8 Blood lymphocytes automated count (number/volume) 1.8 10*3 1.0-4.0 Blood monocytes automated count (number/volume) 0.6 10*3 0.0-1.0 Automated eosinophil count 0.1 10*3/uL 0.0-0.3 Automated blood basophil count (count/volume) 0.0 10*3/uL 0.0-0.1 Lipid 1996 panel - 05/02/17 03:26 Serum or plasma triglyceride measurement (mass/volume) 68 mg/dL <150 Serum or plasma cholesterol measurement (mass/volume) 89 mg/dL < 200 Serum or plasma cholesterol in HDL measurement (mass/volume) 41 mg/ dL 40-60 Cholesterol in LDL [mass/volume] in serum or plasma by direct assay 39 mg/dL 1-129 Serum or plasma cholesterol in VLDL measurement (mass/volume) 14 mg/ dL 5-40 Serum or plasma troponin i.cardiac measurement (mass/volume) - 05/02/17 03:26 Serum or plasma troponin i.cardiac measurement (mass/volume) < ng/ mL <0.30 Encounters ACCT No. Visit Date/Time Discharge Status Pt. Type Provider Facility Loc./Unit Complaint [id number] 11/18/2017 08:39:00 11/18/2017 23:59:59 CLS Outpatient Almaz SORENSEN MD [facility] CARD I25.10 CAD [id number] 09/15/2017 12:33:00 09/15/2017 23:59:59 CLS Outpatient Almaz SORENSEN MD [facility] CARD 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 [id number] 08/21/2017 12:30:00 08/21/2017 23:59:59 CLS Preadmit Almaz SORENSEN MD [facility] CARD CHEST TIGHTNESS R07.89 [id number] 06/12/2017 08:01:00 08/20/2017 00:01:00 DIS Outpatient Almaz SORENSEN MD [facility] CARD CHEST TIGHTNESS R07.89 [id number] 06/18/2017 15:30:00 06/18/2017 23:59:59 CLS Preadmit Almaz SORENSEN MD [facility] CARD BRADYCARDIA [id number] 05/15/2017 14:53:00 05/17/2017 00:01:00 DIS Outpatient Almaz SORENSEN MD [facility] CARD CHEST TIGHTNESS R07.89 [id number] 05/13/2017 17:51:00 05/13/2017 18:09:00 DIS Emergency BRI DUCKWORTH MD [facility] ER MID BACK PAIN [id number] 05/12/2017 10:40:00 05/12/2017 23:59:59 CLS Outpatient Almaz SORENSEN MD [facility] CARD BRADYCARDIA [id number] 05/12/2017 10:38:00 05/12/2017 23:59:59 CLS Outpatient Almaz SORENSEN MD [facility] CARD CHEST TIGHTNESS R07.89 [id number] 05/01/2017 16:45:00 05/02/2017 16:45:00 DIS Inpatient JANEEN CHAMPION DO [facility] ICU CHEST PAIN POST RCA STENT [id number] 04/25/2017 20:20:00 04/27/2017 13:26:00 DIS Outpatient JANEEN CHAMPION DO [facility] CATH CHEST PAIN [id number] 04/23/2017 15:32:00 04/23/2017 23:59:59 CLS Preadmit Almaz SORENSEN MD [facility] CARD CHEST TIGHTNESS [id number] 05/17/2016 09:01:00 05/17/2016 11:35:00 DIS Emergency JORDAN GRANADOS APRN [facility] ER POST NECK SURGERY [id number] 04/13/2015 09:03:00 04/13/2015 23:59:59 CLS Outpatient SATHISH SALOMON MD [facility] RAD RADICULOPATHY [id number] 12/13/2014 06:44:00 12/13/2014 08:44:00 DIS Emergency BRI DUCKWORTH MD [facility] ER RT SIDE ABD PAIN [id number] 01/20/2014 15:48:00 04/20/2014 00:01:00 DIS Outpatient JANEEN CHAMPION DO [facility] CARD PALP [id number] 03/17/2014 15:36:00 03/17/2014 23:59:59 CLS Outpatient ANTONIO PEDRAZA, JUNE Valdivia [facility] RAD HEADACHE SINUS PRESSURE [id number] 12/10/2017 14:36:00 ACT Emergency PEYTON MENDEZ MD [facility] ER CP [id number] 04/21/2014 15:30:00 Document Registration [id number] 12/12/2011 07:45:00 Document Registration [id number] 11/13/2011 15:27:00 Document Registration [id number] 10/21/2011 11:58:00 Document Registration [id number] 10/17/2011 10:40:00 Document Registration [id number] 10/16/2011 10:24:00 Document Registration [id number] 09/25/2011 12:21:00 Document Registration [id number] 08/09/2011 20:48:00 Document Registration [id number] 06/01/2011 18:16:00 Document Registration [id number] 08/06/2017 16:44:48 08/06/2017 23:59:59 CLS Outpatient Nancy Carrero [id number] 06/24/2017 16:03:20 06/24/2017 23:59:59 CLS Outpatient Nancy Carrero [id number] 04/20/2016 11:10:47 04/20/2016 23:59:59 CLS Outpatient Tej Hughes [id number] 03/21/2014 20:33:18 03/21/2014 23:59:59 CLS Outpatient Nancy Carrero [id number] 12/06/2013 16:40:35 12/06/2013 23:59:59 CLS Outpatient Walker, Chante [id number] 10/20/2013 15:46:00 10/20/2013 23:59:59 CLS Outpatient Walker, Chante [id number] 09/23/2013 09:06:24 09/23/2013 23:59:59 CLS Outpatient Walker, Chante [id number] 09/16/2013 09:45:27 09/16/2013 23:59:59 CLS Outpatient Walker, Chante [id number] 09/02/2013 09:50:02 09/02/2013 23:59:59 CLS Outpatient Walker, Chante [id number] 08/06/2013 09:20:07 08/06/2013 23:59:59 CLS Outpatient Walker, Chante
[2017-12-10 14:59] LABS: BASOPHILS % (AUTO) 0 % (0-10); EOSINOPHILS # (AUTO) 0.1 10^3/uL (0.0-0.3); EOSINOPHILS % (AUTO) 1 % (0-10); HEMATOCRIT 42 % (40-54); HEMOGLOBIN 14.6 G/DL (13.3-17.7); LYMPHOCYTES # (AUTO) 1.6 X 10^3 (1.0-4.0); LYMPHOCYTES % (AUTO) 18 % (12-44); MEAN CORPUSCULAR HEMOGLOBIN 31 PG (25-34); MEAN CORPUSCULAR HGB CONC 35 G/DL (32-36); MEAN CORPUSCULAR VOLUME 87 FL (80-99); MEAN PLATELET VOLUME 9.3 FL (7.4-10.4); MONOCYTES # (AUTO) 0.7 X 10^3 (0.0-1.0); MONOCYTES % (AUTO) 8 % (0-12); NEUTROPHILS # (AUTO) 6.2 X 10^3 (1.8-7.8); NEUTROPHILS % (AUTO) 73 % (42-75); PLATELET COUNT 259 10^3/uL (130-400); RED BLOOD COUNT 4.78 10^6/uL (4.35-5.85); RED CELL DISTRIBUTION WIDTH 13.3 % (10.0-14.5); WHITE BLOOD COUNT 8.5 10^3/uL (4.3-11.0)
[2017-12-10] MEDS ORDERED: INSU100V5 SQ (15:15)
[2017-12-10] MEDS ORDERED: INSU100I14 SQ (15:15)
[2017-12-10 15:16] LABS: ALANINE AMINOTRANSFERASE 28 U/L (0-55); ALBUMIN 4.9 GM/DL (3.2-4.5); ALKALINE PHOSPHATASE 70 U/L (40-136); BILIRUBIN,TOTAL 0.6 MG/DL (0.1-1.0); BUN/CREATININE RATIO 17; CALCIUM 9.9 MG/DL (8.5-10.1); CARBON DIOXIDE 23 MMOL/L (21-32); CHLORIDE 102 MMOL/L (98-107); GFR ESTIMATED > 60; GLUCOSE 296 MG/DL (70-105); POTASSIUM 4.1 MMOL/L (3.6-5.0); SODIUM 137 MMOL/L (135-145); TOTAL PROTEIN 7.7 GM/DL (6.4-8.2)
--- NOTE | 2017-12-10 15:18 | Diagnostic Imaging Report ---
PATIENT HISTORY: Chest pain. TECHNIQUE: Single frontal view of the chest. COMPARISON: 05/01/2017 FINDINGS: The lung volumes are mildly low. The left hemidiaphragm is poorly defined, may be due to retrocardiac airspace consolidation. No large pleural effusion or pneumothorax is seen. The cardiomediastinal silhouette is normal in size and contour. No acute osseous abnormality is seen. IMPRESSION: Low lung volumes with retrocardiac airspace opacity, may represent atelectasis or infiltrate. Dictated by: Dictated on workstation # [id number]
[2017-12-10 15:25] LABS: MYOGLOBIN SERUM 52.6 NG/ML (10.0-92.0)
--- NOTE | 2017-12-10 15:39 | ED Chest Pain ---
General Chief Complaint: Chest Pain Stated Complaint: CP Nursing Triage Note: pt presents to ed with intermittent cp since Friday. Pt reports he had palpitations on Friday, started having CP on Friday. Pt called Dr. Garcia office fridayband was told to go to [place] ED. Pt reports they did not find anything there and he was discharged home. Pt reports Pain started again today. Pt states he has an appointment Friday with Dr Coker. Pt had stent placed April of 2017. Nursing Sepsis Screen: No Definite Risk Source: patient Exam Limitations: no limitations History of Present Illness Date Seen by Provider: Dec 10, 2017 Time Seen by Provider: 14:40 Initial Comments To ER per private vehicle with reports of chest pain. He currently has no chest pain states that he's been having some sharp chest pains on the right side of the sternum very brief lasting only 2 or 3 seconds at a time but they do radiate through to his back. This was first noticed yesterday afternoon after taking his dogs for a walk. He did not have any pain during this exercise but after returning home he was very fatigued, unusually so, and had a brief episode of sharp right-sided chest pain. Today he and his went to [employer] and while walking around [place] he again became excessively fatigued which is unusual for him. He had a brief 2-3 second episode of sharp right-sided chest pain. He denies any shortness of breath with exertion. He does have a stent to the right coronary artery placed last year. Follows up with Dr. Coker. He does have an appointment scheduled for follow-up this Friday the . Timing/Duration: changing over time, intermittent Severity/Quality: sharp Location: central Radiation: no radiation ASA po POST ANESTHESIA CARE UNIT NURSE: No NTG SL POST ANESTHESIA CARE UNIT NURSE: No Allergies and Home Medications Allergies Coded Allergies: Penicillins (Verified Allergy, Severe, Rash, 12/10/17) diclofenac sodium (Verified Allergy, Unknown, 12/10/17) lidocaine HCl (Verified Allergy, Unknown, LOW PULSE, 12/10/17) Home Medications Amlodipine Besylate 10 Mg Tablet, 10 MG PO DAILY, (Reported) Aspirin 81 Mg Tablet., 81 MG PO DAILY, (Reported) Atorvastatin Calcium 40 Mg Tablet, 40 MG PO HS, (Reported) Cetirizine HCl 10 Mg Tablet, 10 MG PO DAILY, (Reported) Clopidogrel Bisulfate 75 Mg Tablet, 75 MG PO HS, (Reported) Doxazosin Mesylate 4 Mg Tablet, 4 MG PO HS, (Reported) Epinephrine 0.3 Mg/0.3 Ml Auto.injct, 0.3 MG IJ UD PRN for ALLERGIC REACTION, ( Reported) Ergocalciferol (Vitamin D2) 50,000 Unit Capsule, 50,000 UNIT PO MoTh, (Reported) Famotidine 20 Mg Tablet, 20 MG PO DAILY, (Reported) Fluticasone Propionate 16 Gm [place].susp, 2 SPRAYS NS DAILY, (Reported) Hydrocodone/Acetaminophen 1 Each Tablet, 1 TAB PO TID PRN for PAIN-MODERATE, ( Reported) Insulin Aspart 300 Units/3 Ml Solution, 10 UNITS SQ TIDWM, (Reported) Insulin Detemir 100 Unit/1 Ml Insuln.pen, 45 UNITS SC HS, (Reported) Lisinopril 10 Mg Tablet, 10 MG PO HS, (Reported) Montelukast Sodium 10 Mg Tablet, 10 MG PO HS, (Reported) Nitroglycerin 0.4 Mg Tab.subl, 0.4 MG SL UD PRN for CHEST PAIN, (Reported) Tizanidine HCl 4 Mg Tablet, 8 MG PO HS, (Reported) TAKES 2 (4MG) TABLETS Tizanidine HCl 4 Mg Tablet, 2 MG PO QID PRN for HEADACHE, (Reported) TAKES 1/2 (4MG) TABLET Patient Home Medication List Home Medication List Reviewed: Yes Review of Systems Constitutional: see HPI EENTM: No Symptoms Reported Respiratory: No Symptoms Reported Cardiovascular: See HPI, Chest Pain Gastrointestinal: No Symptoms Reported Genitourinary: No Symptoms Reported Musculoskeletal: no symptoms reported Skin: no symptoms reported Psychiatric/Neurological: No Symptoms Reported Endocrine: No Symptoms Reported Past Mhtzgse-Gxdhzw-Fiyvdf Hx Patient Social History Alcohol Use: Occasionally Uses Number of Drinks Today: Alcohol Beverage of Choice: Beer, Wine Recreational Drug Use: No Smoking Status: Never a Smoker Recent Foreign Travel: No Contact w/Someone Who Travel: No Recent Infectious Disease Expo: No Recent Hopitalizations: Yes Physical Abuse: No Sexual Abuse: No Mistreated: No Fear: No Immunizations Up To Date Tetanus Booster (TDap): Unknown Date of Pneumonia Vaccine: May 18, 2015 Date of Influenza Vaccine: Jan 16, 2011 Seasonal Allergies Seasonal Allergies: No Past Medical History Surgeries: Yes (l shoulder, l testicle) Coronary Stent, Gallbladder, Orthopedic, Tonsillectomy, Vasectomy Respiratory: No Sleep Apnea Currently Using CPAP: Yes (at home) Cardiac: Yes Coronary Artery Disease, High Cholesterol, Hypertension Neurological: No Neuropathy Genitourinary: No Renal Failure Gastrointestinal: No Gastroesophageal Reflux, Ulcer Musculoskeletal: Yes Degenerate Disk Disease, Arthritis Endocrine: Yes Diabetes, Insulin dep HEENT: No Cataract Cancer: No Psychosocial: No Nursing Suicide Risk Score: 0 Integumentary: No Blood Disorders: No Adverse Reaction/Blood Tranf: No Family Medical History Asthma 19 FATHER, Onset:Unknown Colon cancer maternal grandmother, Onset:Unknown Dementia 19 FATHER, Onset:60 years & older FH: congestive heart failure maternal grandfather, Onset:Unknown FHx: colon cancer Myocardial infarction 19 MOTHER, Onset:60 years & older No Pertinent Family Hx Physical Exam Vital Signs Vital Signs - First Documented 12/10/17 15:01 Temp 97.9 Pulse 80 Resp 12 B/P (MAP) 151/86 (107) Pulse Ox 98 O2 Delivery Room Air Capillary Refill : Less Than 3 Seconds General Appearance: No Apparent Distress, WD/WN, Obese HEENT: PERRL/EOMI, TMs Normal Neck: Full Range of Motion, Normal Inspection Respiratory: No Accessory Muscle Use, No Respiratory Distress Cardiovascular: Regular Rate, Rhythm, Normal Peripheral Pulses Gastrointestinal: Normal Bowel Sounds, Non Tender, Soft Extremity: Normal Capillary Refill, No Calf Tenderness Neurologic/Psychiatric: Alert, Oriented x3 Skin: Normal Color, Warm/Dry Progress/Results/Core Measures Lab Results Laboratory Tests Test 12/10/17 14:44 Range/Units White Blood Count 8.5 4.3-11.0 10^3/uL Red Blood Count 4.78 4.35-5.85 10^6/uL Hemoglobin 14.6 13.3-17.7 G/DL Hematocrit 42 40-54 % Mean Corpuscular Volume 87 80-99 FL Mean Corpuscular Hemoglobin 31 25-34 PG Mean Corpuscular Hemoglobin Concent 35 32-36 G/DL Red Cell Distribution Width 13.3 10.0-14.5 % Platelet Count 259 130-400 10^3/uL Mean Platelet Volume 9.3 7.4-10.4 FL Neutrophils (%) (Auto) 73 42-75 % Lymphocytes (%) (Auto) 18 12-44 % Monocytes (%) (Auto) 8 0-12 % Eosinophils (%) (Auto) 1 0-10 % Basophils (%) (Auto) 0 0-10 % Neutrophils # (Auto) 6.2 1.8-7.8 X 10^3 Lymphocytes # (Auto) 1.6 1.0-4.0 X 10^3 Monocytes # (Auto) 0.7 0.0-1.0 X 10^3 Eosinophils # (Auto) 0.1 0.0-0.3 10^3/uL Basophils # (Auto) 0.0 0.0-0.1 10^3/uL Prothrombin Time 13.0 12.2-14.7 SEC INR Comment 1.0 0.8-1.4 Activated Partial Thromboplast Time 29 24-35 SEC D-Dimer 0.39 0.00-0.49 UG/ML Sodium Level 137 135-145 MMOL/L Potassium Level 4.1 3.6-5.0 MMOL/L Chloride Level 102 98-107 MMOL/L Carbon Dioxide Level 23 21-32 MMOL/L Anion Gap 12 5-14 MMOL/L Blood Urea Nitrogen 17 7-18 MG/DL Creatinine 1.00 0.60-1.30 MG/DL Estimat Glomerular Filtration Rate > 60 BUN/Creatinine Ratio 17 Glucose Level 296 H 70-105 MG/DL Calcium Level 9.9 8.5-10.1 MG/DL Magnesium Level 2.0 1.8-2.4 MG/DL Total Bilirubin 0.6 0.1-1.0 MG/DL Aspartate Amino Transf (AST/SGOT) 14 5-34 U/L Alanine Aminotransferase (ALT/SGPT) 28 0-55 U/L Alkaline Phosphatase 70 40-136 U/L Myoglobin 52.6 10.0-92.0 NG/ML Troponin I < 0.30 <0.30 NG/ML Total Protein 7.7 6.4-8.2 GM/DL Albumin 4.9 H 3.2-4.5 GM/DL My Orders Orders - JORDAN GRANADOS APRN Cbc With Automated Diff (12/10/17 14:43) Magnesium (12/10/17 14:43) Chest 1 View, Ap/Pa Only (12/10/17 14:43) Ekg Tracing (12/10/17 14:43) Cardiac Profile 1 (12/10/17 14:43) Comprehensive Metabolic Panel (12/10/17 14:43) Myoglobin Serum (12/10/17 14:43) Protime With Inr (12/10/17 14:43) Partial Thromboplastin Time (12/10/17 14:43) O2 (12/10/17 14:43) Monitor-Rhythm Ecg Trace Only (12/10/17 14:43) Aspirin Chewable Tablet (Baby Aspirin Ch (12/10/17 14:45) Saline Lock/Iv-Start (12/10/17 14:43) Fibrin Degradation Products (12/10/17 15:13) Chest Pa/Lat (2 View) (12/10/17 16:41) Medications Given in ED Vital Signs/I&O 12/10/17 12/10/17 15:01 15:01 Temp 97.9 Pulse 80 Resp 12 B/P (MAP) 151/86 (107) Pulse Ox 98 O2 Delivery Room Air Blood Pressure Mean: 107 Departure Communication (Admissions) 1630-chest pain is nonspecific, the brief shooting chest pain lasting only a few seconds does not sound cardiac. His troponin is negative and he's been pain- free since he's been here. EKG shows no changes from prior. Questionable retrocardiac airspace opacity on chest x-ray of this was only on a single view chest x-ray. I'll obtain a lateral chest x-ray to confirm this. Discussed with Dr. Coker who will see the patient in the clinic this Friday Impression Primary Impression: Chest pain Disposition: HOME, SELF-CARE Condition: Stable Departure-Patient Inst. Decision time for Depature: 16:40 Referrals: JANEEN CHAMPION DO (PCP/Family) Primary Care Physician Patient Instructions: Chest Pain (DC) Add. Discharge Instructions: 1. Keep your appointment with Dr. Coker 2. Return to ER for any concerns All discharge instructions reviewed with patient and/or family. Voiced understanding. JORDAN GRANADOS APRN Dec 10, 2017 15:39
--- NOTE | 2017-12-10 17:10 | Diagnostic Imaging Report ---
EXAMINATION: CHEST (PA AND LATERAL). CLINICAL INDICATION: 62-year-old male, chest pain. COMPARISON: December 10, 2017, at 1503 hours. FINDINGS: There is cervical spinal fusion hardware partially visualized. Stable overall appearance of the cardiomediastinal silhouette. There are right paratracheal calcifications which may relate to calcified lymph nodes. These would be most likely of prior granulomatous etiology. There is no identified pneumothorax. There is no large pleural effusion. There is no identified focal airspace consolidation. IMPRESSION: 1. No identified acute cardiopulmonary abnormality. Dictated by: Dictated on workstation # [id number]
--- OUTSIDE RECORDS SUMMARY | 2017-12-10 17:37 | XMS REPORT | Continuity of Care Document ---
Author Author [facility] Organization [facility] Address Unknown Phone Unavailable Allergies Active Description Code Type Severity Reaction Onset Reported/Identified Relationship to Patient Clinical Status Yes Penicillins [id number] Drug Allergy Severe Rash 06/01/2011 Yes diclofenac sodium [id number] Drug Allergy Unknown N/A 12/13/2014 Yes lidocaine HCl [id number] Drug Allergy Unknown LOW PULSE 12/13/2014 Medications [...] E11.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 W DIABETIC SALESPERSON PARTS 04/27/2017 JAYCEE MILNER JANEEN Ot E78.5 HYPERLIPIDEMIA, UNSPECIFIED 04/27/2017 JAYCEE MILNER JANEEN Ot G47.33 OBSTRUCTIVE SLEEP APNEA (ADULT) (PEDIATR 04/27/2017 CHAMPION DO JANEEN Ot I12.9 HYPERTENSIVE CHRONIC KIDNEY DISEASE W ST 04/27/2017 JAYCEE MILNER JANEEN Ot I25.110 ATHSCL HEART DISEASE OF [place] COR ART W 04/27/2017 JAYCEE MILNER JANEEN Ot J44.9 CHRONIC OBSTRUCTIVE PULMONARY DISEASE, U 04/27/2017 JAYCEE MILNER JANEEN Ot N18.9 CHRONIC KIDNEY DISEASE, UNSPECIFIED 04/27/2017 JAYCEE MILNER JANEEN Ot Z79.899 OTHER SNF (CURRENT) DRUG THERAPY 04/27/2017 JAYCEE MILNER JANEEN [...] JANEEN Ot I25.10 ATHSCL HEART DISEASE OF [place] CORONARY 05/02/2017 CHAMPION DO, AJNEEN Ot N18.2 CHRONIC KIDNEY DISEASE, STAGE 2 (MILD) 05/02/2017 CHAMPION DO, JANEEN Ot R07.9 CHEST PAIN, UNSPECIFIED 05/02/2017 CHAMPION DO JANEEN Ot Z79.02 SNF (CURRENT) USE OF ANTITHROMBOTI 05/02/2017 JAYCEE DO, JANEEN Ot Z79.84 ANALYTICS LEADER (CURRENT) USE OF ORAL HYPOGLYC 05/02/2017 CHAMPION DO, JANEEN Ot Z79.899 OTHER ANALYTICS LEADER (CURRENT) DRUG THERAPY 05/02/2017 CHAMPION DO, JANEEN Ot Z95.5 PRESENCE OF CORONARY ANGIOPLASTY IMPLANT 05/02/2017 JAYCEE DO JANEEN Ot E11.40 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 WITH DIABETIC N 05/02/2017 JAYCEE DO, JANEEN Ot G47.33 OBSTRUCTIVE SLEEP APNEA (ADULT) (PEDIATR 05/02/2017 JAYCEE DO, JANEEN Ot I12.9 HYPERTENSIVE CHRONIC KIDNEY DISEASE W ST 05/02/2017 JAYCEE DO, JANEEN Ot I25.10 ATHSCL HEART DISEASE OF [place] CORONARY 05/02/2017 JAYCEE DO, JANEEN Ot N18.2 CHRONIC KIDNEY DISEASE, STAGE 2 (MILD) 05/02/2017 JAYCEE DO JANEEN Ot R07.9 CHEST PAIN, UNSPECIFIED 05/02/2017 JAYCEE DO JANEEN Ot Z79.02 ANALYTICS LEADER (CURRENT) USE OF ANTITHROMBOTI 05/02/2017 JAYCEE DO JANEEN Ot Z79.84 SNF (CURRENT) USE OF ORAL HYPOGLYC 05/02/2017 JAYCEE DO JANEEN Ot Z79.899 OTHER ANALYTICS LEADER (CURRENT) DRUG THERAPY 05/02/2017 JAYCEE DO JANEEN Ot Z95.5 PRESENCE OF CORONARY ANGIOPLASTY IMPLANT 05/05/2017 JAYCEE DO JANEEN Ot E11.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 W DIABETIC SALESPERSON PARTS 05/05/2017 JAYCEE DO JANEEN Ot E78.5 HYPERLIPIDEMIA, UNSPECIFIED 05/05/2017 JAYCEE DO, JANEEN Ot G47.33 OBSTRUCTIVE SLEEP APNEA (ADULT) (PEDIATR 05/05/2017 JAYCEE DO, JANEEN Ot I12.9 HYPERTENSIVE CHRONIC KIDNEY DISEASE W ST 05/05/2017 CHAMPION DO, JANEEN Ot I25.110 ATHSCL HEART DISEASE OF [place] COR ART W 05/05/2017 CHAMPION DO, JANEEN Ot J44.9 CHRONIC OBSTRUCTIVE PULMONARY DISEASE, U 05/05/2017 CHAMPION DO, JANEEN Ot N18.9 CHRONIC KIDNEY DISEASE, UNSPECIFIED 05/05/2017 CHAMPION DO, JANEEN Ot Z79.899 OTHER SNF (CURRENT) DRUG THERAPY 05/05/2017 CHAMPION DO, JANEEN Ot Z82.49 FAMILY HX OF [place] HEART DIS AND OTH DI 05/06/2017 CHAMPION DO, JANEEN Ot E11.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 W DIABETIC SALESPERSON PARTS 05/06/2017 CHAMPION DO, JANEEN Ot E78.5 HYPERLIPIDEMIA, UNSPECIFIED 05/06/2017 CHAMPION DO, JANEEN Ot G47.33 OBSTRUCTIVE SLEEP APNEA (ADULT) (PEDIATR 05/06/2017 CHAMPION DO, JANEEN Ot I12.9 HYPERTENSIVE CHRONIC KIDNEY DISEASE W ST 05/06/2017 CHAMPION DO, JANEEN Ot I25.110 ATHSCL HEART DISEASE OF [place] COR ART W 05/06/2017 CHAMPION DO, JANEEN Ot J44.9 CHRONIC OBSTRUCTIVE PULMONARY DISEASE, U 05/06/2017 CHAMPION DO, JANEEN Ot N18.9 CHRONIC KIDNEY DISEASE, UNSPECIFIED 05/06/2017 CHAMPION DO, JANEEN Ot Z79.899 OTHER ANALYTICS LEADER (CURRENT) DRUG THERAPY 05/06/2017 CHAMPION DO, JANEEN [...] OTHER CHEST PAIN 05/23/2017 EDU PEDRAZA M DAVE Ot R00.1 BRADYCARDIA, UNSPECIFIED 05/23/2017 EDU PEDRAZA [...] OTHER CHEST PAIN 09/08/2017 ANTONIO PEDRAZA, JUNE Valdivia Ot 478.19 OTHER DISEASE OF NASAL CAVITY AND SINUSE 09/08/2017 JUNE ALVAREZ MD Ot 780.4 DIZZINESS AND GIDDINESS 09/08/2017 Ot 427.89 CARDIAC DYSRHYTHMIAS NEC 09/08/2017 AIME PEDRAZA, SATHISH Schaffer Ot 722.51 THORACIC DISC DEGEN 09/08/2017 AIME PEDRAZA, SATHISH Schaffer Ot 723.0 CERVICAL SPINAL STENOSIS 09/08/2017 Almaz [...] MD Ot I25.10 ATHSCL HEART DISEASE OF [place] CORONARY 09/16/2017 Almaz SORENSEN MD Ot 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 10/27/2017 Almaz SORENSEN MD Ot I25.10 ATHSCL HEART DISEASE OF [place] CORONARY 10/27/2017 EDU PEDRAZA, Almaz ACOSTA Ot 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 11/19/2017 Almaz SORENSEN MD Ot I25.10 ATHSCL HEART DISEASE OF [place] CORONARY 11/19/2017 EDU PEDRAZA, Almaz ACOSTA Ot 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 12/10/2017 Almaz SORENSEN MD Ot I25.10 ATHSCL HEART DISEASE OF [place] CORONARY 12/10/2017 EDU PEDRAZA, Almaz ACOSTA Ot [...] MD Ot I25.10 ATHSCL HEART DISEASE OF [place] CORONARY 12/10/2017 Almaz SORENSEN MD Ot 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 12/10/2017 Almaz SORENSEN MD, Ot I25.10 ATHSCL HEART DISEASE OF [place] CORONARY 12/10/2017 Almaz SORENSEN MD, Ot I77.810 [...] i.cardiac measurement (mass/volume) < ng/ mL <0.30 Complete blood count (CBC) with automated white blood cell (WBC) differential - 12/10/17 14:44 Blood leukocytes automated count (number/volume) 8.5 10*3/uL 4.3-11.0 Blood erythrocytes automated count (number/volume) 4.78 10*6/uL 4.35-5.85 Venous blood hemoglobin measurement (mass/volume) 14.6 g/dL 13.3-17.7 Blood hematocrit (volume fraction) 42 % 40-54 Automated erythrocyte mean corpuscular volume 87 [foz_us] 80-99 Automated erythrocyte mean corpuscular hemoglobin (mass per erythrocyte) 31 pg 25-34 Automated erythrocyte mean corpuscular hemoglobin concentration measurement ( mass/volume) 35 g/dL 32-36 Automated erythrocyte distribution width ratio 13.3 % 10.0-14.5 Automated blood platelet count (count/volume) 259 10*3/uL 130-400 Automated blood platelet mean volume measurement 9.3 [foz_us] 7.4-10.4 Automated blood neutrophils/100 leukocytes 73 % 42-75 Automated blood lymphocytes/100 leukocytes 18 % 12-44 Blood monocytes/100 leukocytes 8 % 0-12 Automated blood eosinophils/100 leukocytes 1 % 0-10 Automated blood basophils/100 leukocytes 0 % 0-10 Blood neutrophils automated count (number/volume) 6.2 10*3 1.8-7.8 Blood lymphocytes automated count (number/volume) 1.6 10*3 1.0-4.0 Blood monocytes automated count (number/volume) 0.7 10*3 0.0-1.0 Automated eosinophil count 0.1 10*3/uL 0.0-0.3 Automated blood basophil count (count/volume) 0.0 10*3/uL 0.0-0.1 PT panel in platelet poor plasma by coagulation assay - 12/10/17 14:44 Prothrombin time (PT) in platelet poor plasma by coagulation assay 13.0 s 12.2-14.7 INR in platelet poor plasma or blood by coagulation assay 1.0 0.8-1.4 Activated partial thromboplastin time (aPTT) in platelet poor plasma bycoagulation assay - 12/10/17 14:44 Activated partial thromboplastin time (aPTT) in platelet poor plasma bycoagulation assay 29 s 24-35 Comprehensive metabolic panel - 12/10/17 14:44 Serum or plasma sodium measurement (moles/volume) 137 mmol/L 135-145 Serum or plasma potassium measurement (moles/volume) 4.1 mmol/L 3.6-5.0 Serum or plasma chloride measurement (moles/volume) 102 mmol/L 98-107 Carbon dioxide 23 mmol/L 21-32 Serum or plasma anion gap determination (moles/volume) 12 mmol/L 5-14 Serum or plasma urea nitrogen measurement (mass/volume) 17 mg/dL 7-18 Serum or plasma creatinine measurement (mass/volume) 1.00 mg/dL 0.60-1.30 Serum or plasma urea nitrogen/creatinine mass ratio 17 NRG Serum or plasma creatinine measurement with calculation of estimated glomerular filtration rate > NRG Serum or plasma glucose measurement (mass/volume) 296 mg/dL 70-105 Serum or plasma calcium measurement (mass/volume) 9.9 mg/dL 8.5-10.1 Serum or plasma total bilirubin measurement (mass/volume) 0.6 mg/dL 0.1-1.0 Serum or plasma alkaline phosphatase measurement (enzymatic activity/volume) 70 U/L 40-136 Serum or plasma aspartate aminotransferase measurement (enzymatic activity/ volume) 14 U/L 5-34 Serum or plasma alanine aminotransferase measurement (enzymatic activity/volume ) 28 U/L 0-55 Serum or plasma protein measurement (mass/volume) 7.7 g/dL 6.4-8.2 Serum or plasma albumin measurement (mass/volume) 4.9 g/dL 3.2-4.5 Magnesium - 12/10/17 14:44 Magnesium 2.0 mg/dL 1.8-2.4 Serum or plasma troponin i.cardiac measurement (mass/volume) - 12/10/17 14:44 Serum or plasma troponin i.cardiac measurement (mass/volume) < ng/ mL <0.30 Fibrin D-dimer FEU measurement in platelet poor plasma (mass/volume) - 14:44 Fibrin D-dimer FEU measurement in platelet poor plasma (mass/volume) 0.39 ug/mL 0.00-0.49 Myoglobin, serum - 12/10/17 14:44 Myoglobin, serum 52.6 ng/mL 10.0-92.0 Encounters ACCT No. Visit Date/Time Discharge Status Pt. 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 [id number] 08/21/2017 12:30:00 08/21/2017 23:59:59 CLS Preadmit Almaz SORENSEN MD [facility] CARD CHEST TIGHTNESS R07.89 [id number] 06/12/2017 08:01:00 08/20/2017 00:01:00 DIS Outpatient Almaz SORENSEN MD [facility] CARD CHEST TIGHTNESS R07.89 [id number] 06/18/2017 15:30:00 06/18/2017 23:59:59 CLS Preadmit Almaz SORENSEN MD [facility] CARD BRADYCARDIA [id number] 05/15/2017 14:53:00 05/17/2017 00:01:00 DIS Outpatient Almaz SORENSEN MD [facility] CARD CHEST TIGHTNESS R07.89 [id number] 05/13/2017 17:51:00 05/13/2017 18:09:00 DIS Emergency BRI DUCKWORTH MD [facility] ER MID BACK PAIN [id number] 05/12/2017 10:40:00 05/12/2017 23:59:59 CLS Outpatient Almaz SORENSEN MD [facility] CARD BRADYCARDIA [id number] 05/12/2017 10:38:00 05/12/2017 23:59:59 CLS Outpatient Almaz SORENSEN MD [facility] CARD CHEST TIGHTNESS R07.89 [id number] 05/01/2017 16:45:00 05/02/2017 16:45:00 DIS Inpatient JANEEN CHAMPION DO [facility] ICU CHEST PAIN POST RCA STENT [id number] 04/25/2017 20:20:00 04/27/2017 13:26:00 DIS Outpatient JANEEN CHAMPION DO [facility] CATH CHEST PAIN [id number] 04/23/2017 15:32:00 04/23/2017 23:59:59 CLS Preadmit Almaz SORENSEN MD [facility] CARD CHEST TIGHTNESS [id number] 05/17/2016 09:01:00 05/17/2016 11:35:00 DIS Emergency JORDAN GRANADOS APRN [facility] ER POST NECK SURGERY [id number] 04/13/2015 09:03:00 04/13/2015 23:59:59 CLS Outpatient AIME PEDRAZA, SATHISH Schaffer [facility] RAD RADICULOPATHY [id number] 12/13/2014 06:44:00 12/13/2014 08:44:00 DIS Emergency DONITA PEDRAZA, BRI [place] [facility] ER RT SIDE ABD PAIN [id number] 01/20/2014 15:48:00 04/20/2014 00:01:00 DIS Outpatient JANEEN CHAMPION DO [facility] CARD PALP [id number] 03/17/2014 15:36:00 03/17/2014 23:59:59 CLS Outpatient ANTONIO PEDRAZA, JUNE Valdivia [facility] RAD HEADACHE SINUS PRESSURE [id number] 12/10/2017 16:56:00 ACT Inpatient JANEEN CHAMPION DO [facility] 4TH CHEST PAIN, CAD [id number] 04/21/2014 15:30:00 Document Registration [id number] 12/12/2011 07:45:00 Document Registration [id number] 11/13/2011 15:27:00 Document Registration [id number] 10/21/2011 11:58:00 Document Registration [id number] 10/17/2011 10:40:00 Document Registration [id number] 10/16/2011 10:24:00 Document Registration [id number] 09/25/2011 12:21:00 Document Registration [id number] 08/09/2011 20:48:00 Document Registration [id number] 06/01/2011 18:16:00 Document Registration [id number] 08/06/2017 16:44:48 08/06/2017 23:59:59 CLS Outpatient Nancy Carrero [id number] 06/24/2017 16:03:20 06/24/2017 23:59:59 CLS Outpatient Nancy Carrero [id number] 04/20/2016 11:10:47 04/20/2016 23:59:59 CLS Outpatient HarismikkiTej [id number] 03/21/2014 20:33:18 03/21/2014 23:59:59 CLS Outpatient Nancy Carrero [id number] 12/06/2013 16:40:35 12/06/2013 23:59:59 CLS Outpatient Walker, Chante [id number] 10/20/2013 15:46:00 10/20/2013 23:59:59 CLS Outpatient Walker, Chante [id number] 09/23/2013 09:06:24 09/23/2013 23:59:59 CLS Outpatient Walker, Chante [id number] 09/16/2013 09:45:27 09/16/2013 23:59:59 CLS Outpatient Walker, Chante [id number] 09/02/2013 09:50:02 09/02/2013 23:59:59 CLS Outpatient Walker, Chante [id number] 08/06/2013 09:20:07 08/06/2013 23:59:59 CLS Outpatient Walker, Chante
[2017-12-10 17:40] VITALS: BP 130/79
[2017-12-10 19:25] VITALS: BP 134/80
[2017-12-10] MEDS: inSUlin ASPART (NovoLOG) 1 UNIT/0.01 ML (CHARGE PER UNIT) SC SCH (21:45)
[2017-12-11] VITALS (12 sets, daily range): BP systolic 101–166; BP diastolic 61–84
[2017-12-11 05:42] LABS: CHOLESTEROL 94 MG/DL (< 200); HDL CHOLESTEROL 40 MG/DL (40-60); TRIGLYCERIDES 70 MG/DL (<150); VLDL CHOLESTEROL 14 MG/DL (5-40)
[2017-12-11] MEDS: inSUlin ASPART (NovoLOG) 1 UNIT/0.01 ML (CHARGE PER UNIT) SC SCH ×3 (05:55→16:43)
[2017-12-11] MEDS: CATHETER FLUSH 10 ML SYR IV PRN ×2 (07:54→09:30)
[2017-12-11] MEDS ORDERED: REGADENOSON 0.4 MG/5 ML SYR (LEXISCAN) IV ONE ×2 (08:42→09:45)
[2017-12-11] MEDS ORDERED: LISI10TA2 PO (10:12)
[2017-12-11] MEDS ORDERED: CLOP75TA28 PO (10:12)
[2017-12-11] MEDS ORDERED: INSU100I29 SC (10:12)
--- NOTE | 2017-12-11 10:49 | Consultation-Cardiology ---
HPI-Cardiology Cardiology Consultation: Date of Consultation 12/11/17 Date of Admission Attending Physician Yulia Cruz DO Admitting Physician Yulia Cruz DO Consulting Physician Almaz COKER MD HPI: Time Seen by Provider: 09:00 Chief Complaint: Chest pain This is a 62-year-old gentleman who has previous history of CAD and PCI to the RCA in April 2017. He had a normal nuclear stress test in May 2017. He presented with substernal chest pain brief episodes. They radiated to the back. He has been having it for a couple of days especially with excursion. He also complains of being significantly fatigued with the chest pain. He denies any significant shortness of breath, syncope, near-syncope, palpitations. Review of Systems-Cardiology Review of Systems Constitutional: As described under HPI; No As described under HPI, No no symptoms reported, No chills, No fever, No lightheadedness Eyes: No As described under HPI, No no symptoms reported, No blindness, No blurred vision, No contact lenses, No drainage, No decreased acuity, No foreign body sensation, No pain, No vision change Ears/Nose/Throat: No As described under HPI, No no symptoms reported, No chronic hearing loss, No ear discharge, No ear pain, No nasal drainage, No ulcerations Respiratory: No no symptoms reported; As described under HPI; No As described under HPI, No cough, No orthopnea, No shortness of breath, No SOB with excertion Cardiovascular: No no symptoms reported; As described under HPI; No As described under HPI; chest pain; No edema, No irregular heart rate, No lightheadedness, No palpitations Gastrointestinal: No no symptoms reported, No As described under HPI, No abdomen distended, No abdominal pain, No blood streaked bowels, No constipation , No diarrhea, No nausea, No vomiting, No stool coloration changes Genitourinary: No As described under HPI, No burning, No dysuria, No discharge , No frequency, No flank pain, No hematuria, No urgency Musculoskeletal: No no symptoms reported, No As describe under HPI, No back pain, No gout, No joint pain, No joint swelling, No muscle pain, No muscle stiffness, No neck pain, No other Skin: No no symptoms reported, No As described under HPI, No change in color, No change in hair/nails, No dryness, No lesions, No lumps, No rash, No other, No skin related problems, No ulcerations, No rash on exposed areas, No ulcerations on exposed areas Psychiatric/Neurological: No anxiety, No depression, No seizure, No focal weakness, No syncope Hematologic: No bleeding abnormalities KHI-Liajsv-Djkmqi Hx Patient Social History Alcohol Use: Occasionally Uses Recreational Drug Use: No Smoking Status: Never a Smoker Type Used: Cigarettes Recent Foreign Travel: No Recent Infectious Disease Expo: No Hospitalization with Isolation: Denies Physical Abuse Screen: No Sexual Abuse: No Immunizations Up To Date Tetanus Booster (TDap): Unknown Date of Pneumonia Vaccine: May 18, 2015 Date of Influenza Vaccine: Jan 16, 2011 Past Medical History PMH As described under Assessment. Family Medical History Family History: Asthma 19 FATHER, Onset:Unknown Colon cancer maternal grandmother, Onset:Unknown Dementia 19 FATHER, Onset:60 years & older FH: congestive heart failure maternal grandfather, Onset:Unknown FHx: colon cancer Myocardial infarction 19 MOTHER, Onset:60 years & older Allergies and Home Medications Allergies Coded Allergies: Penicillins (Verified Allergy, Severe, Rash, 12/10/17) diclofenac sodium (Verified Allergy, Unknown, 12/10/17) lidocaine HCl (Verified Allergy, Unknown, LOW PULSE, 12/10/17) Home Medications Allopurinol 100 Mg Tablet, 100 MG PO HS, (Reported) Amlodipine Besylate 10 Mg Tablet, 10 MG PO HS, (Reported) Aspirin 81 Mg Tablet.dr, 81 MG PO HS, (Reported) Atorvastatin Calcium 40 Mg Tablet, 40 MG PO HS, (Reported) Clopidogrel Bisulfate 75 Mg Tablet, 75 MG PO DAILY, (Reported) Doxazosin Mesylate 4 Mg Tablet, 4 MG PO HS, (Reported) Epinephrine 0.3 Mg/0.3 Ml Auto.injct, 0.3 MG IJ UD PRN for ALLERGIC REACTION, ( Reported) Ergocalciferol (Vitamin D2) 50,000 Unit Capsule, 50,000 UNIT PO MoTh, (Reported) Famotidine 20 Mg Tablet, 20 MG PO BID, (Reported) Fluticasone Propionate 16 Gm [place].susp, 2 SPRAYS NS DAILY, (Reported) Glimepiride 2 Mg Tablet, 3 MG PO BID, (Reported) TAKES 1 & 1/2 (2MG) TABLET Hydrocodone/Acetaminophen 1 Each Tablet, 1 TAB PO TID PRN for PAIN-MODERATE, ( Reported) Insulin Aspart 300 Units/3 Ml Solution, 10 UNITS SQ TIDWM, (Reported) Insulin Detemir 100 Unit/1 Ml Insuln.pen, 45 UNITS SC HS, (Reported) Lisinopril 10 Mg Tablet, 10 MG PO DAILY, (Reported) Loratadine 10 Mg Tablet, 10 MG PO DAILY, (Reported) Montelukast Sodium 10 Mg Tablet, 10 MG PO HS, (Reported) Nitroglycerin 0.4 Mg Tab.subl, 0.4 MG SL UD PRN for CHEST PAIN, (Reported) Potassium Chloride 10 Meq Tablet.er, 10 MEQ PO DAILY, (Reported) Spironolactone 50 Mg Tablet, 50 MG PO DAILY, (Reported) Tizanidine HCl 4 Mg Tablet, 8 MG PO HS, (Reported) TAKES 2 (4MG) TABLETS Tizanidine HCl 4 Mg Tablet, 2 MG PO QID PRN for HEADACHE, (Reported) TAKES 1/2 (4MG) TABLET Torsemide 10 Mg Tablet, 10 MG PO DAILY, (Reported) Patient Home Medication List Home Medication List Reviewed: Yes Physical Exam-Cardiology Physical Exam Vital Signs/I&O 12/11/17 12/11/17 12/11/17 12/11/17 00:00 01:00 04:00 04:00 Temp 97.2 98.0 97.8 Pulse 51 59 62 62 Resp 18 18 18 B/P (MAP) 101/61 (74) 117/73 (88) 117/73 (88) Pulse Ox 98 98 98 O2 Delivery NIV CPAP Room Air NIV CPAP 12/11/17 12/11/17 12/11/17 07:00 09:25 10:30 Temp 97.7 Pulse 65 81 71 Resp 16 22 B/P (MAP) 129/76 (93) 149/84 (105) Pulse Ox 98 95 O2 Delivery Room Air Room Air 12/11/17 00:00 Intake Total 720 ml Output Total 550 ml Balance 170 ml Capillary Refill : Less Than 3 Seconds Constitutional: appears stated age, AAO x 3; No apparent distress; well- developed, well-nourished HEENT: PERRL; No normal ENT inspection, No TMs normal, No pharynx normal, No scleral icterus (R), No scleral icterus (L), No pale conjunctivae (R), No pale conjunctivae (L), No photophobia, No TM abnormal (R), No TM abnormal (L), No pharyngeal erythema, No tonsillar exudate, No other, No discharge, No EOMI; hearing is well preserved; No hard of hearing; oral hygience is good; No ulceration, No xanthelasmas are seen Neck: No non-tender, No full range of motion, No supple, No normal inspection, No carotid bruit, No limited range of motion, No lymphadenopathy (R), No lymphadenopathy (L), No tender lateral, No tender midline, No thyromegaly, No other; carotid pulses are 2 + bilaterally; No with good upstrokes Respiratory: No accessory muscle use, No respiratory distress, No chest tender , No chest expansion is symmetric; chest is bilaterally symmetric; No lungs clear to percussion; lungs clear to auscultation; No crackles, No rhonchi, No rales, No stridor, No wheezing, No pleural rub, No other Cardiovascular: regular rate-rhythm; No irregularly irregular, No extra beats, No parasternal heave is noted, No JVD, No edema, No bradycardia, No tachycardia , No point of maximal impulse, No cardiac thrills are palpable; S1 and S2; No gallop/S3, No gallop/S4, No diastolic murmur, No systolic murmur, No friction rub, No click, No other Gastrointestinal: No tender, No soft, No round, No distended, No pulsatile mass , No organomegaly, No guarding, No rebound, No tenderness, No hernia, No mass, No audible bowel sounds, No abnormal bowel sounds, No abdominal bruits, No spleenomegaly, No other Rectal: deferred Extremities: No normal range of motion, No non-tender, No normal inspection, No pedal edema, No calf tenderness, No normal capillary refill, No pelvis stable , No calf tenderness, No inflammation, No pedal edema, No slow capillary refill , No swelling, No other, No abrasion, No clubbing, No cyanosis, No ecchymosis, No laceration, No no lower extremity edema bilateral, No significant edema, No tenderness, No wound Neurologic/Psychiatric: no motor/sensory deficits, alert, normal mood/affect, oriented x 3, power is 5/5 both on sides Skin: No normal color, No warm/dry, No cyanosis, No cool, No diaphoresis, No damp, No ecchymosis, No jaundice, No mottled, No pallor, No rash, No tattoos/ piercings, No ulcerations, No rash on exposed areas, No ulcerations on exposed areas, No other Data Review Labs Laboratory Tests 12/10/17 14:44: White Blood Count 8.5, Red Blood Count 4.78, Hemoglobin 14.6, Hematocrit 42, Mean Corpuscular Volume 87, Mean Corpuscular Hemoglobin 31, Mean Corpuscular Hemoglobin Concent 35, Red Cell Distribution Width 13.3, Platelet Count 259, Mean Platelet Volume 9.3, Neutrophils (%) (Auto) 73, Lymphocytes (%) (Auto) 18, Monocytes (%) (Auto) 8, Eosinophils (%) (Auto) 1, Basophils (%) (Auto) 0, Neutrophils # (Auto) 6.2, Lymphocytes # (Auto) 1.6, Monocytes # (Auto) 0.7, Eosinophils # (Auto) 0.1, Basophils # (Auto) 0.0, Prothrombin Time 13.0, INR Comment 1.0, Activated Partial Thromboplast Time 29, D-Dimer 0.39, Sodium Level 137, Potassium Level 4.1, Chloride Level 102, Carbon Dioxide Level 23, Anion Gap 12, Blood Urea Nitrogen 17, Creatinine 1.00, Estimat Glomerular Filtration Rate > 60, BUN/Creatinine Ratio 17, Glucose Level 296H, Calcium Level 9.9, Magnesium Level 2.0, Total Bilirubin 0.6, Aspartate Amino Transf (AST/SGOT) 14, Alanine Aminotransferase (ALT/SGPT) 28, Alkaline Phosphatase 70, Myoglobin 52.6 , Troponin I < 0.30, Total Protein 7.7, Albumin 4.9H 12/10/17 21:32: Glucometer 160H 12/10/17 22:50: Troponin I < 0.30 12/11/17 05:10: Troponin I < 0.30, Triglycerides Level 70, Cholesterol Level 94, LDL Cholesterol Direct 41, VLDL Cholesterol 14, HDL Cholesterol 40 12/11/17 05:25: Glucometer 230H 12/11/17 11:20: Glucometer 258H ECG Impression ECG Initial ECG Rhythm: Normal Sinus Initial ECG Impression: Normal A/P-Cardiology Assessment/Admission Diagnosis Recurrent chest pain, CAD, status post PCI, Hyperlipidemia, Hypertension Plan Acute coronary syndrome ruled out with negative serial troponins. EKG negative. We will perform pharmacological nuclear stress test. If abnormal will proceed to coronary angiography. CAD/previous PCI: Continue dual antiplatelet therapy. Hyperlipidemia: Continue statin therapy. Hypertension: Continue outpatient medications. Thank you for your consultation. Please call me if you have any questions. Miriam Coker MD, FACP, FACC, FSCAI, FHRS, CCDS Interventional Cardiology Cardiac Electrophysiology Vascular Medicine and Endovascular Interventions Clinical Quality Measures AMI/AHF: ASA po Prior to arrival: No DVT/VTE Risk/Contraindication: Risk Factor Score Per Nursin RFS Level Per Nursing on Admit: 4+=Very High Almaz COKER MD Dec 11, 2017 10:49 am
[2017-12-11] MEDS ORDERED: CETI10TA20 PO (11:43)
--- NOTE | 2017-12-11 12:03 | History & Physical-Hospitalist ---
History of Present Illness HPI/Chief Complaint CC: Chest pain with new onset fatigue HPI: This is a 62-year-old white male clinic patient of mine who presented to the ER with complaints of vague chest pain with new onset fatigue when walking around shopping. He reported to [facility] ER since he lives in [place] they evaluated all the lab work and EKG showing no evidence of any abnormality status discharge and that he presented to via [facility] ER yesterday and was subsequently admitted for observation on my service with consulting cardiology and he underwent a Lexiscan this morning that was abnormal so he will be proceeding on with cardiac catheterization. Source: patient Exam Limitations: no limitations Date Seen 12/11/17 Time Seen by Provider: 11:30 Attending Physician Yulia Cruz DO PCP Yulia Cruz DO Referring Physician Date of Admission Dec 10, 2017 at 16:56 Home Medications & Allergies Home Medications Reviewed patient Home Medication Reconciliation performed by pharmacy medication reconciliations aviation technician and/or nursing. Patients Allergies have been reviewed. Allergies Allergies Coded Allergies Penicillins (Verified Allergy, Severe, Rash, 12/10/17) diclofenac sodium (Verified Allergy, Unknown, 12/10/17) lidocaine HCl (Verified Allergy, Unknown, LOW PULSE, 12/10/17) Past [id number]-Lruucr Hx Past Med/Social Hx: Reviewed Nursing Past Med/Soc Hx, Reviewed and Corrections made Patient Social History Marrital Status: Employed/Student: retired Alcohol Use: Occasionally Uses Number of Drinks Today: AA Alcohol Beverage of Choice: Beer, Wine Recreational Drug Use: No Smoking Status: Never a Smoker Type Used: Cigarettes Physical Abuse Screen: No Sexual Abuse: No Recent Foreign Travel: No Contact w/other who traveled: No Recent Hopitalizations: Yes Recent Infectious Disease Expo: No Immunizations Up To Date Tetanus Booster (TDap): Unknown Pediatric: No Date of Pneumonia Vaccine: May 18, 2015 Date of Influenza Vaccine: Jan 16, 2011 Seasonal Allergies Seasonal Allergies: No Past Medical History Surgeries: Coronary Stent, Gallbladder, Orthopedic, Tonsillectomy, Vasectomy Respiratory: Sleep Apnea Currently Using CPAP: Yes (at home) Currently Using BIPAP: No Cardiac: Coronary Artery Disease, High Cholesterol, Hypertension Neurological: Neuropathy Genitourinary: Renal Failure Gastrointestinal: Gastroesophageal Reflux, Ulcer Musculoskeletal: Degenerate Disk Disease, Arthritis Endocrine: Diabetes, Insulin dep HEENT: Cataract History of Blood Disorders: No Adverse Reaction to Blood [place]: No Family History Asthma 19 FATHER, Onset:Unknown Colon cancer maternal grandmother, Onset:Unknown Dementia 19 FATHER, Onset:60 years & older FH: congestive heart failure maternal grandfather, Onset:Unknown FHx: colon cancer Myocardial infarction 19 MOTHER, Onset:60 years & older Diabetes Review of Systems Constitutional: see HPI, dizziness, weakness EENTM: no symptoms reported Respiratory: dyspnea on exertion, short of breath Cardiovascular: chest pain Gastrointestinal: no symptoms reported Genitourinary: no symptoms reported Musculoskeletal: no symptoms reported Skin: no symptoms reported Psychiatric/Neurological: No Symptoms Reported All Other Systems Reviewed Negative Unless Noted: Yes Physical Exam Physical Exam Vital Signs Vital Signs - First Documented 12/10/17 15:01 Temp 97.9 Pulse 80 Resp 12 B/P (MAP) 151/86 (107) Pulse Ox 98 O2 Delivery Room Air Capillary Refill : Less Than 3 Seconds General Appearance: No Apparent Distress, WD/WN, Obese Eyes: Bilateral Eye Normal Inspection, Bilateral Eye PERRL HEENT: PERRL/EOMI, Normal ENT Inspection, Pharynx Normal Neck: Full Range of Motion, Normal Inspection, Non Tender, Supple, Carotid Bruit Respiratory: Chest Non Tender, Lungs Clear, Normal Breath Sounds, No Accessory Muscle Use, No Respiratory Distress Cardiovascular: Regular Rate, Rhythm, No Edema, No Gallop, No JVD, No Murmur, Normal Peripheral Pulses Gastrointestinal: Normal Bowel Sounds, No Organomegaly, No Pulsatile Mass, Non Tender, Soft Back: Normal Inspection, No CVA Tenderness, No Vertebral Tenderness Extremity: Normal Capillary Refill, Normal Inspection, Normal Range of Motion, Non Tender, No Calf Tenderness, No Pedal Edema Neurologic/Psychiatric: Alert, Oriented x3, No Motor/Sensory Deficits, Normal Mood/Affect Skin: Normal Color, Warm/Dry Lymphatic: No Adenopathy Results Results/Procedures Labs Laboratory Tests 12/10/17 14:44 Patient resulted labs reviewed. Assessment/Plan Admission Diagnosis Assessment: Chest pain with abnormal Lexiscan proceeding on with cardiac catheterization Known history of CAD previous stents placed in the past Diabetes mellitus insulin-dependent Hypertension Hyperlipidemia Chronic renal insufficiency Obstructive sleep apnea Plan: Proceed on with cardiac catheterization to evaluate the source of the abnormal Lexiscan Monitor closely Restart all home meds once reconciled and stable from cardiac catheterization Admission Status: Observation Diagnosis/Problems Diagnosis/Problems (1) Chest pain Status: Acute Qualifiers: Chest pain type: chest pain due to myocardial ischemia Ischemic chest pain type: unstable angina pectoris Qualified Codes: I20.0 - Unstable angina (2) CAD (coronary artery disease) Status: Chronic Qualifiers: Coronary Disease-Associated Artery/Lesion type: [place] artery [place] vs. transplanted heart: [place] heart Associated angina: without angina Qualified Codes: I25.10 - Atherosclerotic heart disease of [place] coronary artery without angina pectoris (3) Hypertension Status: Chronic Qualifiers: Hypertension type: essential hypertension Qualified Codes: I10 - Essential (primary) hypertension (4) [place] (obstructive sleep apnea) Status: Chronic (5) Obesity Status: Chronic Qualifiers: Obesity type: due to excess calories Obesity classification: adult class 2 (BMI 35 - 39.9) Body mass index: BMI 36.0-36.9 (6) Hyperlipidemia Status: Chronic Qualifiers: Hyperlipidemia type: mixed hyperlipidemia Qualified Codes: E78.2 - Mixed hyperlipidemia (7) Diabetes mellitus Status: Chronic Qualifiers: Diabetes mellitus type: type 2 Diabetes mellitus senior living insulin use: with senior living use Diabetes mellitus complication status: with circulatory complication Diabetes mellitus complication detail: with other circulatory complications Qualified Codes: E11.59 - Type 2 diabetes mellitus with other circulatory complications; 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
--- NOTE | 2017-12-11 12:31 | Cardiology Stress Test Report ---
Stress Test Report Type of NM Stress Test: Test Type: LEXISCAN 0.4MG/5ML Date of Procedure/Referring: Date of Procedure: Dec 11, 2017 PCP Yulia Cruz DO Admitting Physician Yulia Cruz DO Indications: Recurrent chest pain, history of PCI Baseline Heart Rate: 81 Baseline Blood Pressure: Blood Pressure Systolic: 129 Blood Pressure Diastolic: 76 Baseline EKG: Baseline EKG: sinus rhythm Summary: The patient was brought to the stress lab of informed consent was taken. Lexiscan stress test was performed according to the protocol. 0.4 mg of IV Lexiscan was given. Low-grade exercise was performed. Baseline EKG showed sinus rhythm 81 bpm and blood pressure 129/76 mmHg. Maximum heart rate of 104 bpm and blood pressure 158/79 mmHg. Patient did not have any chest pain, EKG changes or arrhythmias during the stress test. However he complained of significant fatigue at the end of the stress test. 10.76 mCi of Myoview were given for rest imaging and 29.8 mCi of Myoview was given for stress imaging. Transient ischemic dilatation score of 0.93. Ejection fraction of 80 percent with no wall motion abnormalities. There is an intermediate intensity, moderate sized reversible inferior defect. SSS 9, SRS 5 , SDS 4. Conclusion: Pharmacological stress test negative for ischemia. Normal LV function with no wall motion abnormalities. Evidence of inferior ischemia. Coronary angiography is recommended. Almaz SORENSEN MD Dec 11, 2017 12:31 pm
--- NOTE | 2017-12-11 13:12 | Cardiac Procedure Note-CS/ASA ---
Pre-Procedure Note Pre-Op Procedure Note H&P Reviewed The H&P was reviewed, patient examined and no changes noted. Date H&P Reviewed: Dec 11, 2017 Time H&P Reviewed: 13:11 Conscious Sedation Pre-Proced Time Reviewed: 13:11 ASA Class: 3 Airway Mallampati Classification: ([place] appropriate class) I. II. III, IV Lungs Heart ASA score ASA 1: a normal healthy patient ASA 2: a patient with a mild systemic disease (mid diabetes, controlled hypertension, obesity ASA 3: a patient with a severe systemic disease that limits activity (angina , COPD, prior Myocardial infarction) ASA 4: a patient with an incapacitating disease that is a constant threat to life (CHF, renal failure) ASA 5: a moribund patient not expected to survive 24 hrs. (ruptured aneurysm) ASA 6: a declared brain patient whose organs are being harvested. For emergent operations, add the letter E after the classification Grade 1 Sedation Plan: Analgesia, Amnesia, Plan communicated to team members, Discussed options with patient/fam, Discussed risks with patient/fam Note The patient is an appropriate candidate to undergo the planned procedure, sedation, and anesthesia. The patient immediately re-assessed prior to indication. Almaz SORENSEN MD Dec 11, 2017 1:12 pm
[2017-12-11] MEDS ORDERED: HEParin 1000 UNIT/ML (10ML VIAL) FOR BOLUS ONE ×2 (13:21→14:11)
[2017-12-11] MEDS ORDERED: NS IV 1000 ML 2,000 ML ONE (13:24)
[2017-12-11] MEDS ORDERED: LIDOCAINE 1% INJ 20 ML 20 ML VIAL ONE (14:10)
[2017-12-11] MEDS ORDERED: MIDAZOLAM 5 MG/5 ML (VERSED) VIAL ONE (14:10)
[2017-12-11] MEDS ORDERED: fentaNYL INJECTION 100 MCG/2 ML AMP ONE (14:11)
[2017-12-11] MEDS ORDERED: NITRO DRIP 25000 MCG/D5W 250 ML IV ONE (14:11)
[2017-12-11] MEDS ORDERED: VERAPAMIL 5 MG/2 ML (CALAN) VIAL IV ONE (14:12)
[2017-12-11] MEDS ORDERED: NS IV 1000 ML 1,000 ML ONE (14:28)
[2017-12-11] MEDS ORDERED: diphenhydrAMINE 50 MG/ML INJ (BENADRYL) ONE (14:39)
[2017-12-11] MEDS ORDERED: NS IV 1000 ML 1,000 ML IV SCH (15:20)
--- NOTE | 2017-12-11 15:20 | Coronary Angiography Report ---
Coronary Angiography Report DATE OF PROCEDURE: 12/11/17 INDICATION: Chest pain, abnormal nuclear stress test, previous history of PCI in April 2017. PREOPERATIVE DIAGNOSIS: Chest pain, abnormal nuclear stress test, previous history of PCI in April 2017. POSTOPERATIVE DIAGNOSIS: Patent RCA stent. No significant CAD. HISTORY: This is a 62-year-old gentleman who has previous history of CAD with PCI to the RCA with drug-eluting stent in April 2017. He presented with atypical chest pain and fatigue. Pharmacological nuclear stress test was done this morning which showed evidence of inferior ischemia. Therefore, the patient was scheduled for coronary angiography. PROCEDURES PERFORMED: 1.Coronary angiography. 2.Left heart catheterization. 3. Aortic arch angiography COMPLICATIONS: None. SPECIMENS: None. ESTIMATED BLOOD LOSS: 10 mL ANESTHESIA: Conscious sedation ANTICOAGULATION: IV heparin CONTRAST: 68 mL FLUOROSCOPY: FLOUROSCOPY DOSE: 482 mgy PROCEDURE DETAILS: The patient is a 62 male and was brought to the rn cardiac cath after informed consent was taken. All the risks and complications were explained in detail; this included the risk of bleeding, vascular damage, stroke , NH and even . The patient was draped and prepped in the usual sterile fashion. Access was gained in the right radial artery with a 6 [place] sheath. Coronary angiography and left heart catheterization was performed with the [place] catheter. FINDINGS: 1.Left main: Patent. 2.LAD: Patent. Transapical vessel. 3.Left circumflex artery: Patent. 4.RCA: Patent RCA stent. No other disease noted. 5.Left heart catheterization: Aortic pressure 108/78 mmHg. LV pressure 116/6 mmHg. LVEDP 16 mmHg. Normal LV function with no wall motion abnormalities. No gradient across the aortic valve. 6. Aortic arch angiography: No evidence of dissection or aneurysm. Normal proximal segments of the great arteries including the brachiocephalic artery, left common carotid artery and left subclavian artery. CONCLUSIONS: Patent RCA stent. No significant CAD. Atypical chest discomfort is non- cardiac in origin. Continue secondary prevention measures for CAD. Miriam Coker MD, FACP, FACC, [facility] Interventional Cardiology Almaz COKER MD Dec 11, 2017 3:20 pm
--- NOTE | 2017-12-11 15:27 | Discharge Inst-Post CATH ---
Discharge Inst-CATH Post Cardiac Cath D/C Inst Follow Up/Plan Follow-up with Dr. Coker in a month CARDIAC CATH DISCHARGE INSTRUCTIONS *Hold Metformin for 48 hours post heart cath. ACTIVITY * Go Home directly and rest. * Limit activity of the leg (or wrist if it was used) for 7 days including aerobics, swimming, jogging, bicycling, etc. * Restrict stair-climbing for 7 days if possible, if not, climb up with your non -cath leg, then bring together on the same step. * Avoid lifting, pushing, pulling or excessive movement of the affected extremity for 7 days. * Customary sexual activity may be resumed after 2 days-use caution not to use a position that strains or causes pain to the affected extremity. * No driving for 24 hours. * NO SMOKING. * Avoid straining for bowel movements for 7 days. * Gentle walking on level ground is allowed. * Returning to work will depend on the type of procedure and the results. Your doctor will discuss this with you. CALL YOUR DOCTOR FOR ANY OF THE FOLLOWING: *If bleeding from the puncture site occurs- Apply gentle pressure to site with clean cloth and call your doctor or EMS. * If a knot or lump forms under the skin, increases in size, or causes pain. * If bruising appears to be worsening or moving further down your leg instead of disappearing. * Temperature above 101 F. CARE OF YOUR GROIN INCISION; * Bruising or purple discoloration of the skin near the puncture site is common. * You may shower only, no bathtub bathing for 5 days. Be careful to avoid slipping as your leg may feel stiff. * If a closure device was used on your femoral artery, please see the attached guide regarding care of the device and your leg. * REMOVE the dressing from your groin the next day after your procedure in the shower. CARE OF YOUR WRIST INCISION; * Bruising or purple discoloration of the skin near the puncture site is common. * You may shower. * DO NOT submerge wrist. * Remove dressing in 24 hours. Almaz COKER MD Dec 11, 2017 3:27 pm
[2017-12-11] MEDS ORDERED: PATIENT MAY USE OWN MEDS, ALL PO SCH (15:30)
[2017-12-11] MEDS ORDERED: EPINEPHRINE 0.3 MG IJ PRN (17:30)
[2017-12-11] MEDS ORDERED: HYDROcodone/APAP 10 MG/325 MG (LORTAB) TAB PO PRN (17:30)
[2017-12-11] MEDS ORDERED: NITROGLYCERIN 0.4 MG SL PRN (17:30)
[2017-12-11] MEDS ORDERED: VITAMIN D2 50,000 UNITS (1.25 MG) CAP PO SCH (17:30)
[2017-12-11] MEDS ORDERED: NITROGLYCERIN 0.4 MG SL TABS BTL 25'S SL PRN (18:00)
[2017-12-11] MEDS ORDERED: EPINEPHrine INJECTION 1 MG/ML AMP IM PRN (18:00)
[2017-12-11] MEDS ORDERED: lisINopril 10 MG (PRINIVIL) TABLET PO SCH (21:00)
[2017-12-11] MEDS ORDERED: NON-FORMULARY MEDICATION 1 EA EA (Montelukast Sodium 10 MG) PO SCH (21:00)
[2017-12-11] MEDS ORDERED: MONTELUKAST 10 MG (SINGULAIR) TAB PO SCH (21:00)
[2017-12-11] MEDS ORDERED: NON-FORMULARY MEDICATION 1 EA EA (Lisinopril 10 MG) PO SCH (21:00)
[2017-12-11] MEDS ORDERED: ATORVASTATIN 40 MG (LIPITOR) TABLET PO SCH (21:00)
[2017-12-11] MEDS ORDERED: NON-FORMULARY MEDICATION 1 EA EA (Insulin Detemir (Levemir Flextouch) 45 UNITS) SC SCH (21:00)
[2017-12-11] MEDS ORDERED: CLOPIDOGREL 75 MG (PLAVIX) TABLET PO SCH (21:00)
[2017-12-11] MEDS ORDERED: inSUlin DETERMIR 1 UNIT/0.01 ML (LEVEMIR) CHARGE PER UNIT SQ SCH (21:00)
[2017-12-11] MEDS ORDERED: doxAzosin 4 MG (CARDURA) TAB PO SCH (21:00)
[2017-12-12] MEDS ORDERED: NON-FORMULARY MEDICATION 1 EA EA (Insulin Aspart (Novolog Flexpen) 10 UNITS) SQ SCH (07:00)
[2017-12-12] MEDS ORDERED: inSUlin ASPART (NovoLOG) 1 UNIT/0.01 ML (CHARGE PER UNIT) SC SCH (07:00)
[2017-12-12] MEDS ORDERED: KCL 10 MEQ TAB (MICRO K) PO SCH (07:00)
[2017-12-12] MEDS ORDERED: NON-FORMULARY MEDICATION 1 EA EA (Famotidine 20 MG) PO SCH (09:00)
[2017-12-12] MEDS ORDERED: NON-FORMULARY MEDICATION 1 EA EA (Torsemide 10 MG) PO SCH (09:00)
[2017-12-12] MEDS ORDERED: amLODIPine 10 MG (NORVASC) TAB PO SCH (09:00)
[2017-12-12] MEDS ORDERED: ASPIRIN E.C. 81 MG (ECOTRIN) TAB PO SCH (09:00)
[2017-12-12] MEDS ORDERED: LORATADINE (CLARITIN) 10 MG TAB PO SCH (09:00)
[2017-12-12] MEDS ORDERED: SPIRONOLACTONE 25 MG (ALDACTONE) TAB PO SCH (09:00)
[2017-12-12] MEDS ORDERED: FLUTICASONE NASAL SPRAY (FLONASE) 16 GM BTL NS SCH (09:00)
[2017-12-12] MEDS ORDERED: NON-FORMULARY MEDICATION 1 EA EA (Spironolactone 50 MG) PO SCH (09:00)
[2017-12-12] MEDS ORDERED: TORSEMIDE 20 MG (DEMADEX) TAB PO SCH (09:00)
[2017-12-12] MEDS ORDERED: NON-FORMULARY MEDICATION 1 EA EA (Amlodipine Besylate 10 MG) PO SCH (09:00)
[2017-12-12] MEDS ORDERED: NON-FORMULARY MEDICATION 1 EA EA (Cetirizine HCl (Zyrtec) 10 MG) PO SCH (09:00)
[2017-12-12] MEDS ORDERED: FAMOTIDINE 20 MG (PEPCID) TABLET PO SCH (09:00)
[2017-12-15] MEDS ORDERED: VITAMIN D2 50,000 UNITS (1.25 MG) CAP PO SCH (09:00)
--- OUTSIDE RECORDS SUMMARY | 2017-12-16 13:20 | XMS REPORT | Continuity of Care Document ---
Author Author [facility] Organization [facility] Address Unknown Phone Unavailable Allergies Active Description Code Type Severity Reaction Onset Reported/Identified Relationship to Patient Clinical Status Yes Penicillins [id number] Drug Allergy Severe Rash 12/10/2017 Yes diclofenac sodium [id number] Drug Allergy Unknown N/A 12/10/2017 Yes lidocaine HCl [id number] Drug Allergy Unknown LOW PULSE 12/10/2017 Medications There is no data. 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 04/27/2017 JAYCEE MILNER JANEEN Ot J44.9 CHRONIC OBSTRUCTIVE PULMONARY DISEASE, U 04/27/2017 JAYCEE MILNER JANEEN Ot N18.9 CHRONIC KIDNEY DISEASE, UNSPECIFIED 04/27/2017 JAYCEE MILNER JANEEN Ot Z79.899 OTHER PRISON (CURRENT) DRUG THERAPY 04/27/2017 JAYCEE MILNER JANEEN [...] JANEEN Ot I25.10 ATHSCL HEART DISEASE OF [place] CORONARY 05/02/2017 CHAMPION DO, JANEEN Ot N18.2 CHRONIC KIDNEY DISEASE, STAGE 2 (MILD) 05/02/2017 CHAMPION DO, JANEEN Ot R07.9 CHEST PAIN, UNSPECIFIED 05/02/2017 CHAMPION DO JANEEN Ot Z79.02 PRISON (CURRENT) USE OF ANTITHROMBOTI 05/02/2017 JAYCEE DO, JANEEN Ot Z79.84 MACHINE INKER (CURRENT) USE OF ORAL HYPOGLYC 05/02/2017 CHAMPION DO, JANEEN Ot Z79.899 OTHER MACHINE INKER (CURRENT) DRUG THERAPY 05/02/2017 CHAMPION DO, JANEEN Ot Z95.5 PRESENCE OF CORONARY ANGIOPLASTY IMPLANT 05/02/2017 JAYCEE DO JANEEN Ot E11.40 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 WITH DIABETIC N 05/02/2017 JAYCEE DO, JANEEN Ot G47.33 OBSTRUCTIVE SLEEP APNEA (ADULT) (PEDIATR 05/02/2017 JAYCEE DO, JANEEN Ot I12.9 HYPERTENSIVE CHRONIC KIDNEY DISEASE W ST 05/02/2017 JAYCEE DO, JANEEN Ot I25.10 ATHSCL HEART DISEASE OF [place] CORONARY 05/02/2017 JAYCEE DO, JANEEN Ot N18.2 CHRONIC KIDNEY DISEASE, STAGE 2 (MILD) 05/02/2017 JAYCEE DO JANEEN Ot R07.9 CHEST PAIN, UNSPECIFIED 05/02/2017 JAYCEE DO JANEEN Ot Z79.02 MACHINE INKER (CURRENT) USE OF ANTITHROMBOTI 05/02/2017 JAYCEE DO JANEEN Ot Z79.84 PRISON (CURRENT) USE OF ORAL HYPOGLYC 05/02/2017 JAYCEE DO JANEEN Ot Z79.899 OTHER MACHINE INKER (CURRENT) DRUG THERAPY 05/02/2017 JAYCEE DO JANEEN Ot Z95.5 PRESENCE OF CORONARY ANGIOPLASTY IMPLANT 05/05/2017 JAYCEE DO JANEEN Ot E11.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 W DIABETIC MILIEU MANAGER 05/05/2017 JAYCEE DO JANEEN Ot E78.5 HYPERLIPIDEMIA, UNSPECIFIED 05/05/2017 JAYCEE DO, JANEEN Ot G47.33 OBSTRUCTIVE SLEEP APNEA (ADULT) (PEDIATR 05/05/2017 JAYCEE DO, JANEEN Ot I12.9 HYPERTENSIVE CHRONIC KIDNEY DISEASE W ST 05/05/2017 CHAMPION DO, JANEEN Ot I25.110 ATHSCL HEART DISEASE OF [place] COR ART W 05/05/2017 CHAMPION DO, JANEEN Ot J44.9 CHRONIC OBSTRUCTIVE PULMONARY DISEASE, U 05/05/2017 CHAMPION DO, JANEEN Ot N18.9 CHRONIC KIDNEY DISEASE, UNSPECIFIED 05/05/2017 CHAMPION DO, JANEEN Ot Z79.899 OTHER PRISON (CURRENT) DRUG THERAPY 05/05/2017 CHAMPION DO, JANEEN Ot Z82.49 FAMILY HX OF ISCHEM HEART DIS AND OTH DI 05/06/2017 CHAMPION DO, JANEEN Ot E11.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 W DIABETIC MILIEU MANAGER 05/06/2017 CHAMPION DO, JANEEN Ot E78.5 HYPERLIPIDEMIA, UNSPECIFIED 05/06/2017 CHAMPION DO, JANEEN Ot G47.33 OBSTRUCTIVE SLEEP APNEA (ADULT) (PEDIATR 05/06/2017 CHAMPION DO, JANEEN Ot I12.9 HYPERTENSIVE CHRONIC KIDNEY DISEASE W ST 05/06/2017 CHAMPION DO, JANEEN Ot I25.110 ATHSCL HEART DISEASE OF [place] COR ART W 05/06/2017 CHAPMION DO, JANEEN Ot J44.9 CHRONIC OBSTRUCTIVE PULMONARY DISEASE, U 05/06/2017 CHAMPION DO, JANEEN Ot N18.9 CHRONIC KIDNEY DISEASE, UNSPECIFIED 05/06/2017 CHAMPION DO, JANEEN Ot Z79.899 OTHER MACHINE INKER (CURRENT) DRUG THERAPY 05/06/2017 CHAMPION DO, JANEEN [...] MD Ot I25.10 ATHSCL HEART DISEASE OF [place] CORONARY 09/16/2017 Almaz SORENSEN MD Ot 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 10/27/2017 Almaz SORENSEN MD Ot I25.10 ATHSCL HEART DISEASE OF [place] CORONARY 10/27/2017 EDU PEDRAZA, Almaz ACOSTA Ot 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 11/19/2017 Almaz SORENSEN MD Ot I25.10 ATHSCL HEART DISEASE OF [place] CORONARY 11/19/2017 EDU PEDRAZA, Almaz ACOSTA Ot 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 12/10/2017 Almaz SORENSEN MD Ot I25.10 ATHSCL HEART DISEASE OF [place] CORONARY 12/10/2017 EDU PEDRAZA, Almaz ACOSTA Ot [...] MD Ot R07.89 OTHER CHEST PAIN 12/10/2017 EDU PEDRAZA, Almaz ACOSTA Ot I25.10 ATHSCL HEART DISEASE OF [place] CORONARY 12/10/2017 EDU PEDRAZA, Almaz ACOSTA Ot 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 12/10/2017 EDU PEDRAZA, Almaz ACOSTA Ot I25.10 ATHSCL HEART DISEASE OF [place] CORONARY 12/10/2017 EDU PEDRAZA, Almaz ACOSTA Ot 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1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[place] COR ART W 12/11/2017 JAYCEE MILNER JANEEN Ot N18.9 CHRONIC KIDNEY DISEASE, UNSPECIFIED 12/11/2017 JAYCEE MILNER JANEEN Ot R07.89 OTHER CHEST PAIN 12/11/2017 JAYCEE MILNER JANEEN Ot Z68.36 BODY MASS INDEX (BMI) 36.0-36.9, ADULT 12/11/2017 JAYCEE MILNER JANEEN Ot Z79.4 PRISON (CURRENT) USE OF INSULIN 12/11/2017 NIKO CHAMPION DOI Ot Z88.0 ALLERGY STATUS TO PENICILLIN 12/11/2017 NIKO CHAMPION DOI Ot Z95.5 PRESENCE OF CORONARY ANGIOPLASTY IMPLANT Procedures There is no data. Results Test [...] 12/10/17 14:44 Myoglobin, serum 52.6 ng/mL 10.0-92.0 Capillary blood glucose measurement by glucometer (mass/volume) - 12/10/17 21: 32 Capillary blood glucose measurement by glucometer (mass/volume) 160 mg/dL 70-110 Serum or plasma troponin i.cardiac measurement (mass/volume) - 12/10/17 22:50 Serum or plasma troponin i.cardiac measurement (mass/volume) < ng/ mL <0.30 Serum or plasma troponin i.cardiac measurement (mass/volume) - 12/11/17 05:10 Serum or plasma troponin i.cardiac measurement (mass/volume) < ng/ mL <0.30 Lipid 1996 panel - 12/11/17 05:10 Serum or plasma triglyceride measurement (mass/volume) 70 mg/dL <150 Serum or plasma cholesterol measurement (mass/volume) 94 mg/dL < 200 Serum or plasma cholesterol in HDL measurement (mass/volume) 40 mg/ dL 40-60 Cholesterol in LDL [mass/volume] in serum or plasma by direct assay 41 mg/dL 1-129 Serum or plasma cholesterol in VLDL measurement (mass/volume) 14 mg/ dL 5-40 Capillary blood glucose measurement by glucometer (mass/volume) - 12/11/17 05: 25 Capillary blood glucose measurement by glucometer (mass/volume) 230 mg/dL 70-110 Capillary blood glucose measurement by glucometer (mass/volume) - 12/11/17 11: 20 Capillary blood glucose measurement by glucometer (mass/volume) 258 mg/dL 70-110 Capillary blood glucose measurement by glucometer (mass/volume) - 12/11/17 16: 43 Capillary blood glucose measurement by glucometer (mass/volume) 170 mg/dL 70-110 Encounters ACCT No. Visit Date/Time Discharge Status Pt. 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 [id number] 08/21/2017 12:30:00 08/21/2017 23:59:59 CLS Preadmit Almaz SORENSEN MD [facility] CARD CHEST TIGHTNESS R07.89 [id number] 06/12/2017 08:01:00 08/20/2017 00:01:00 DIS Outpatient Almaz SORENSEN MD [facility] CARD CHEST TIGHTNESS R07.89 [id number] 06/18/2017 15:30:00 06/18/2017 23:59:59 CLS Preadmit Almaz SORENSEN MD [facility] CARD BRADYCARDIA [id number] 05/15/2017 14:53:00 05/17/2017 00:01:00 DIS Outpatient Almaz SORENSEN MD [facility] CARD CHEST TIGHTNESS R07.89 [id number] 05/13/2017 17:51:00 05/13/2017 18:09:00 DIS BRI Russell MD [facility] ER MID BACK PAIN [id number] 05/12/2017 10:40:00 05/12/2017 23:59:59 CLS Outpatient Almaz SORENSEN MD [facility] CARD BRADYCARDIA [id number] 05/12/2017 10:38:00 05/12/2017 23:59:59 CLS Outpatient Almaz SORENSEN MD [facility] CARD CHEST TIGHTNESS R07.89 [id number] 05/01/2017 16:45:00 05/02/2017 16:45:00 DIS Inpatient JANEEN CHAMPION DO [facility] ICU CHEST PAIN POST RCA STENT [id number] 04/25/2017 20:20:00 04/27/2017 13:26:00 DIS Outpatient JANEEN CHAMPION DO [facility] CATH CHEST PAIN [id number] 04/23/2017 15:32:00 04/23/2017 23:59:59 CLS Preadmit Almaz SORENSEN MD [facility] CARD CHEST TIGHTNESS [id number] 05/17/2016 09:01:00 05/17/2016 11:35:00 DIS Emergency JORDAN GRANADOS APRN [facility] ER POST NECK SURGERY [id number] 04/13/2015 09:03:00 04/13/2015 23:59:59 CLS Outpatient SATHISH SALOMON MD [facility] RAD RADICULOPATHY [id number] 12/13/2014 06:44:00 12/13/2014 08:44:00 DIS Emergency BRI DUCKWORTH MD [facility] ER RT SIDE ABD PAIN [id number] 01/20/2014 15:48:00 04/20/2014 00:01:00 DIS Outpatient JANEEN CHAMPION DO [facility] CARD PALP [id number] 03/17/2014 15:36:00 03/17/2014 23:59:59 CLS Outpatient ANTONIO PEDRAZA, JUNE Valdivia [facility] RAD HEADACHE SINUS PRESSURE [id number] 04/21/2014 15:30:00 Document Registration [id number] 12/12/2011 07:45:00 Document Registration [id number] 11/13/2011 15:27:00 Document Registration [id number] 10/21/2011 11:58:00 Document Registration [id number] 10/17/2011 10:40:00 Document Registration [id number] 10/16/2011 10:24:00 Document Registration [id number] 09/25/2011 12:21:00 Document Registration [id number] 08/09/2011 20:48:00 Document Registration [id number] 06/01/2011 18:16:00 Document Registration [id number] 08/06/2017 16:44:48 08/06/2017 23:59:59 CLS Outpatient Nancy Carrero [id number] 06/24/2017 16:03:20 06/24/2017 23:59:59 CLS Outpatient Nancy Carrero [id number] 04/20/2016 11:10:47 04/20/2016 23:59:59 CLS Outpatient Tej Hughes [id number] 03/21/2014 20:33:18 03/21/2014 23:59:59 CLS Outpatient Magan, W Holden [id number] 12/06/2013 16:40:35 12/06/2013 23:59:59 CLS Outpatient Chante Thompson [id number] 10/20/2013 15:46:00 10/20/2013 23:59:59 CLS Outpatient WalkerChante [id number] 09/23/2013 09:06:24 09/23/2013 23:59:59 CLS Outpatient WalkerChante [id number] 09/16/2013 09:45:27 09/16/2013 23:59:59 CLS Outpatient WalkerChante [id number] 09/02/2013 09:50:02 09/02/2013 23:59:59 CLS Outpatient WalkerChante [id number] 08/06/2013 09:20:07 08/06/2013 23:59:59 CLS Outpatient WalkerChante
== END 2017-12-11 18:00 | disposition home or self-care (01) ==
LOC: EDUNIT# 14:34 → ER 14:36 → UNDOADMOB 16:56 → 4TH 16:56 → CATH 18:20 → 4TH 18:20 → CATH 12-11 18:00 → UNDODISOB 12-11 18:00
PROVIDERS: ATTEND Internal Medicine
DX: R07.89 Other chest pain (principal); I25.119 Atherosclerotic heart disease of native coronary artery with unspecified angina pectoris; I12.9 Hypertensive chronic kidney disease with stage 1 through stage 4 chronic kidney disease, or unspecified chronic kidney disease; G47.33 Obstructive sleep apnea (adult) (pediatric); E66.9 Obesity, unspecified; E78.5 Hyperlipidemia, unspecified; E11.42 Type 2 diabetes mellitus with diabetic polyneuropathy; N18.9 Chronic kidney disease, unspecified; Z79.4 Long term (current) use of insulin; Z95.5 Presence of coronary angioplasty implant and graft; Z88.0 Allergy status to penicillin; Z68.36 Body mass index [BMI] 36.0-36.9, adult
CPT/HCPCS: 36221; 36415; 71045; 71046; 78452; 80053; 80061; 82962; 83735; 83874; 84484; 85025; 85379; 85610; 85730; 93005; 93017; 93041; 93458; G0378

== ENCOUNTER → 2018-01-08 | Outpatient (CLI) | payer BC ==
[~2018-01-08] MED LIST changes: +CETI10TA20 PO; +INSU100I14 SQ; +INSU100I29 SC; +INSU100V5 SQ; +LISI10TA2 PO
--- NOTE | 2018-01-08 16:01 | Diagnostic Imaging Report ---
PROCEDURE: US Renal Bilateral. TECHNIQUE: Multiple real-time grayscale images were obtained over the kidneys in various projections bilaterally. INDICATION: Hypertension and chronic kidney disease. FINDINGS: The right kidney measures 12.1 x 6.6 x 7.8 cm and the left kidney measures 18.8 x 7.8 x 7.0 cm. Left kidney contains numerous large cysts. Inferiorly a cyst measures approximately 8.8 cm in diameter. A second cyst is approximately 8.2 x 6.5 cm. No solid lesions are seen. No calculi or hydronephrosis is identified. Bilateral ureteral jets are visualized. IMPRESSION: Numerous large left renal cysts. No other significant abnormality is seen. Dictated by: Dictated on workstation # [id number]
== END ==
LOC: RAD 13:15
PROVIDERS: ATTEND Internal Medicine Nephrology
DX: I12.9 Hypertensive chronic kidney disease with stage 1 through stage 4 chronic kidney disease, or unspecified chronic kidney disease (principal); N18.2 Chronic kidney disease, stage 2 (mild); E11.65 Type 2 diabetes mellitus with hyperglycemia; N28.1 Cyst of kidney, acquired
CPT/HCPCS: 76770

== ENCOUNTER → 2018-04-03 | Outpatient (CLI) | payer BC ==
[~2018-04-03] MED LIST changes: -SPIR25TA3 PO; +SPIR25TA5 PO; -SPIR50TA2 PO; +SPIR50TA4 PO
[2018-04-03 06:30] LABS: BASOPHILS % (AUTO) 0 % (0-10); EOSINOPHILS # (AUTO) 0.1 10^3/uL (0.0-0.3); EOSINOPHILS % (AUTO) 1 % (0-10); HEMATOCRIT 40 % (40-54); HEMOGLOBIN 13.7 G/DL (13.3-17.7); LYMPHOCYTES # (AUTO) 1.4 X 10^3 (1.0-4.0); LYMPHOCYTES % (AUTO) 21 % (12-44); MEAN CORPUSCULAR HEMOGLOBIN 30 PG (25-34); MEAN CORPUSCULAR HGB CONC 35 G/DL (32-36); MEAN CORPUSCULAR VOLUME 88 FL (80-99); MEAN PLATELET VOLUME 9.2 FL (7.4-10.4); MONOCYTES # (AUTO) 0.5 X 10^3 (0.0-1.0); MONOCYTES % (AUTO) 7 % (0-12); NEUTROPHILS # (AUTO) 4.6 X 10^3 (1.8-7.8); NEUTROPHILS % (AUTO) 70 % (42-75); PLATELET COUNT 243 10^3/uL (130-400); RED BLOOD COUNT 4.51 10^6/uL (4.35-5.85); RED CELL DISTRIBUTION WIDTH 14.5 % (10.0-14.5); WHITE BLOOD COUNT 6.5 10^3/uL (4.3-11.0)
[2018-04-03 06:57] LABS: ALANINE AMINOTRANSFERASE 31 U/L (0-55); ALBUMIN 4.5 GM/DL (3.2-4.5); ALKALINE PHOSPHATASE 54 U/L (40-136); BILIRUBIN,TOTAL 0.5 MG/DL (0.1-1.0); BUN/CREATININE RATIO 22; CALCIUM 8.8 MG/DL (8.5-10.1); CARBON DIOXIDE 20 MMOL/L (21-32); CHLORIDE 107 MMOL/L (98-107); CHOLESTEROL 111 MG/DL (< 200); GFR ESTIMATED > 60; GLUCOSE 268 MG/DL (70-105); POTASSIUM 4.4 MMOL/L (3.6-5.0); SODIUM 136 MMOL/L (135-145); TOTAL PROTEIN 6.7 GM/DL (6.4-8.2); TRIGLYCERIDES 85 MG/DL (<150)
== END ==
LOC: LAB 06:01
PROVIDERS: ATTEND Internal Medicine
DX: Z00.00 Encounter for general adult medical examination without abnormal findings (principal); E11.65 Type 2 diabetes mellitus with hyperglycemia; E78.1 Pure hyperglyceridemia; E78.00 Pure hypercholesterolemia, unspecified
CPT/HCPCS: 36415; 80053; 82043; 82465; 83036; 84443; 84478; 85025

== ENCOUNTER → 2018-05-18 | Outpatient (CLI) | payer BC ==
[~2018-05-18] MED LIST changes: -AMLO10TA2 PO; +AMLO10TA6 PO; +HYDR-4196 PO; -HYDR-753 PO; -OXYC-201 PO; +OXYC1TAB16 PO
== END ==
LOC: CARD 08:31
PROVIDERS: ATTEND Internal Medicine Interventional Cardiology
DX: R00.1 Bradycardia, unspecified (principal); I25.10 Atherosclerotic heart disease of native coronary artery without angina pectoris; I10 Essential (primary) hypertension; E66.9 Obesity, unspecified; I47.1 Supraventricular tachycardia; I77.810 Thoracic aortic ectasia
CPT/HCPCS: 93306

== ENCOUNTER → 2018-06-17 | Outpatient (CLI) | payer BC ==
[2018-06-17 09:52] LABS: BASOPHILS % (AUTO) 0 % (0-10); EOSINOPHILS # (AUTO) 0.1 10^3/uL (0.0-0.3); EOSINOPHILS % (AUTO) 1 % (0-10); HEMATOCRIT 42 % (40-54); LYMPHOCYTES # (AUTO) 1.2 X 10^3 (1.0-4.0); LYMPHOCYTES % (AUTO) 20 % (12-44); MEAN CORPUSCULAR HEMOGLOBIN 30 PG (25-34); MEAN CORPUSCULAR HGB CONC 34 G/DL (32-36); MEAN CORPUSCULAR VOLUME 89 FL (80-99); MEAN PLATELET VOLUME 9.3 FL (7.4-10.4); MONOCYTES # (AUTO) 0.5 X 10^3 (0.0-1.0); MONOCYTES % (AUTO) 8 % (0-12); NEUTROPHILS # (AUTO) 4.5 X 10^3 (1.8-7.8); NEUTROPHILS % (AUTO) 71 % (42-75); PLATELET COUNT 222 10^3/uL (130-400); RED BLOOD COUNT 4.66 10^6/uL (4.35-5.85); RED CELL DISTRIBUTION WIDTH 13.4 % (10.0-14.5); WHITE BLOOD COUNT 6.3 10^3/uL (4.3-11.0)
[2018-06-17 09:58] LABS: BILIRUBIN,URINE NEGATIVE (NEGATIVE); CLARITY,URINE CLEAR; COLOR,URINE YELLOW; GLUCOSE, URINE (UA) NEGATIVE (NEGATIVE); KETONES,URINE NEGATIVE (NEGATIVE); LEUKOCYTE ESTERASE ,URINE NEGATIVE (NEGATIVE); NITRITE,URINE NEGATIVE (NEGATIVE); PH,URINE 5 (5-9); PROTEIN,URINE NEGATIVE (NEGATIVE); UROBILINOGEN,URINE NORMAL (NORMAL)
[2018-06-17 10:12] LABS: ALBUMIN 4.6 GM/DL (3.2-4.5); BUN/CREATININE RATIO 14; CALCIUM 9.6 MG/DL (8.5-10.1); CARBON DIOXIDE 23 MMOL/L (21-32); CHLORIDE 104 MMOL/L (98-107); CREATININE SERUM 0.84 MG/DL (0.60-1.30); GFR ESTIMATED > 60; GLUCOSE 175 MG/DL (70-105); MAGNESIUM 1.9 MG/DL (1.8-2.4); PHOSPHORUS 3.4 MG/DL (2.3-4.7); SODIUM 139 MMOL/L (135-145); URIC ACID 5.6 MG/DL (2.6-7.2)
[2018-06-17 10:15] LABS: URINE CREATININE FOR RATIO 55 MG/DL (30-125); URINE PROTEIN FOR RATIO ONLY < 6 MG/DL (6-12)
[2018-06-17 10:38] LABS: BACTERIA,URINE NEGATIVE /HPF; HYALINE CASTS, URINE RARE /LPF; SQUAMOUS EPITHELIAL CELL,UR RARE /HPF
== END ==
LOC: LAB 09:31
PROVIDERS: ATTEND Internal Medicine Nephrology
DX: I12.9 Hypertensive chronic kidney disease with stage 1 through stage 4 chronic kidney disease, or unspecified chronic kidney disease (principal); N18.2 Chronic kidney disease, stage 2 (mild); E11.65 Type 2 diabetes mellitus with hyperglycemia
CPT/HCPCS: 36415; 80069; 81000; 82306; 82570; 83735; 83970; 84156; 84550; 85025

== ENCOUNTER → 2018-08-06 | Outpatient (CLI) | payer BC ==
[2018-08-06 09:08] LABS: ALANINE AMINOTRANSFERASE 38 U/L (0-55); ALBUMIN 4.6 GM/DL (3.2-4.5); ALKALINE PHOSPHATASE 80 U/L (40-136); BILIRUBIN,TOTAL 0.6 MG/DL (0.1-1.0); BUN/CREATININE RATIO 18; CARBON DIOXIDE 23 MMOL/L (21-32); CHLORIDE 106 MMOL/L (98-107); CHOLESTEROL 97 MG/DL (< 200); CREATININE SERUM 0.92 MG/DL (0.60-1.30); GFR ESTIMATED > 60; GLUCOSE 202 MG/DL (70-105); HDL CHOLESTEROL 42 MG/DL (40-60); POTASSIUM 4.4 MMOL/L (3.6-5.0); SODIUM 139 MMOL/L (135-145); TRIGLYCERIDES 39 MG/DL (<150); VLDL CHOLESTEROL 8 MG/DL (5-40)
== END ==
LOC: LAB 08:35
PROVIDERS: ATTEND Internal Medicine
DX: Z00.00 Encounter for general adult medical examination without abnormal findings (principal); E11.65 Type 2 diabetes mellitus with hyperglycemia; E78.00 Pure hypercholesterolemia, unspecified; E78.1 Pure hyperglyceridemia
CPT/HCPCS: 36415; 80053; 80061; 83036

== ENCOUNTER 2018-09-03 14:43 | Observation (INO) | payer BC ==
[~2018-09-03] VITALS: Ht 177.8 cm; Wt 115.6 kg
[2018-09-03] MEDS ORDERED: ASPIRIN 81 MG CHEW (CHILDREN'S ASA) PO ONE (14:45)
--- OUTSIDE RECORDS SUMMARY | 2018-09-03 14:48 | XMS REPORT | CCD ---
Author Author HERMINIO OLGUIN Organization Unknown Address [address] [place] [address] Care Team Providers Care Lithographic Retoucher Apprentice Name Role Phone MONICA PHYS, ROSY ER Attphys MONICA PHYS, ROSY ER Prisurg Allergies Allergy Code Allergy Type Reaction Status XYLOCAINE EP YOSSI 1% {Deactivated Allergy} 0 Drug allergy Active PENICILLINS (CLASS) 46415 Drug allergy Active LIDOCAINE 6875 Drug allergy Active Active Medications Unknown or Not Available. Problems Unknown or Not Available. Procedures Procedure Code Procedure Type Date ^CBC W/AUTO DIFF 0746403 SNOMED CT 06/26/2017 C REACTIVE PROTEIN 49773463 SNOMED CT 06/26/2017 COMPREHENSIVE METABOLIC PANEL 667226650 SNOMED CT 2016 CBC W/ AUTO DIFF (RFLX MAN DIFF IF IND) 7553084 SNOMED CT 06/26/2017 Results COMPREHENSIVE METABOLIC PANEL - Collect Date/Time: 06/26/2017 13:30 Test Name Code Test Result Test Units Test Ref Range GLUCOSE 2345-7 176 MG/DL L=70 H=100 SODIUM 2951-2 139 MEQ/L L=135 H=148 POTASSIUM 2823-3 3.9 MEQ/L L=3.5 H=5.3 CHLORIDE 2075-0 105 MEQ/L L=96 H=110 CO2 2028-9 23 MEQ/L L=22 H=29 BUN 3094-0 13 MG/DL L=8 H=22 CREATININE 2160-0 0.9 MG/DL L=0.6 H=1.6 SGOT/AST 1920-8 19 IU/L L=10 H=40 SGPT/ALT 1742-6 48 IU/L L=8 H=54 ALK PHOS 6768-6 71 IU/L L=35 H=115 TOTAL PROTEIN 2885-2 7.1 G/DL L=5.5 H=8.5 ALBUMIN 1751-7 4.4 G/DL L=3.1 H=5.4 TOTAL BILI 1975-2 0.6 MG/DL L=0.0 H=1.5 CALCIUM 97726-7 9.4 MG/DL L=8.2 H=10.6 AGE 61 yrs GFR NonAA 86 GFR AA 104 eGFR >60 N/A eGFR AA* >60 N/A CBC W/ AUTO DIFF (RFLX MAN DIFF IF IND) - Collect Date/Time: 06/26/2017 13:30 Test Name Code Test Result Test Units Test Ref Range WBC 44101-6 8.1 TH/CMM L=4.5 H=10.8 RBC 789-8 4.74 ML/CMM L=4.70 H=6.10 HGB 718-7 14.2 G/DL L=14.0 H=18.0 HCT 4544-3 40.9 % L=42.0 H=52.0 MCV 86 FL L=81 H=99 MCH 30.0 PG L=27.0 H=33.0 MCHC 34.7 G/DL L=31.0 H=36.0 RDW SD 40 FL L=36 H=50 RDW CV 12.7 % L=0.0 H=14.8 MPV 9.0 FL L=9.3 H=12.5 PLT 777-3 229 TH/CMM L=130 H=440 NRBC# 0.00 TH/CMM L=0.00 H=0.00 NRBC% 0.0 /100WBC L=0.0 H=2.0 %NEUT 76.5 % %LYMP 15.8 % %MONO 6.3 % %EOS 0.6 % %BASO 0.4 % #NEUT 6.22 TH/CMM L=2.10 H=8.20 #LYMP 1.28 TH/CMM L=0.90 H=5.20 #MONO 0.51 TH/CMM L=0.16 H=1.00 #EOS 0.05 TH/CMM L=0.00 H=0.80 #BASO 0.03 TH/CMM L=0.00 H=0.20 MANUAL DIFF NOT IND N/A C REACTIVE PROTEIN - Collect Date/Time: 06/26/2017 13:30 Test Name Code Test Result Test Units Test Ref Range C REACTIVE PROTEIN 1988 <0.5 MG/DL L=0.0 H= 1.0 Function Status Unknown or Not Available. History of Immunizations Unknown or Not Available. Plan of Treatment Unknown or Not Available. Social History Smoking Status Code Start Date End Date Never smoker [id number] Vital Signs Unknown or Not Available. Function Status Unknown or Not Available. Goals Unknown or Not Available. ASSESSMENTS Unknown or Not Available. Health Concerns Section Unknown or Not Available.
--- OUTSIDE RECORDS SUMMARY | 2018-09-03 14:48 | XMS REPORT | CCD ---
Author Author HERMINIO OLGUIN Unknown Address [address] [place] [address] Care Team Providers Care Hardscape Foreman Name Role Phone MEKA UMANZOR DO Attphys Allergies Allergy Code Allergy Type Reaction Status XYLOCAINE EP YOSSI 1% {Deactivated Allergy} 0 Drug allergy Active PENICILLINS (CLASS) 71481 Drug allergy Active LIDOCAINE 6321 Drug allergy Active Active Medications Unknown or Not Available. Problems Unknown or Not Available. Procedures Procedure Code Procedure Type Date CX CHEST [address] 04/05/2017 TROPONIN-I ADV 864850518 SNOMED CT 04/05/2017 UA ROUTINE C&S IF IND 521997941 SNOMED CT 04/05/[address] 04/05/2017 COMPREHENSIVE METABOLIC PANEL 900877307 SNOMED CT 2016 TROPONIN-I ADV 455649019 SNOMED CT 04/05/[address] 04/05/2017 CBC W/ AUTO DIFF (RFLX MAN DIFF IF IND) 7810684 SNOMED CT 04/05/2017 ^UA AUTO DIPSTICK ONLY 768240828 SNOMED CT 04/05/2017 ^CBC W/AUTO DIFF 3967739 SNOMED CT 04/05/2017 Results COMPREHENSIVE METABOLIC PANEL - Collect Date/Time: 04/05/2017 11:50 Test Name Code Test Result Test Units Test Ref Range GLUCOSE 2345-7 185 MG/DL L=70 H=100 SODIUM 2951-2 137 MEQ/L L=135 H=148 POTASSIUM 2823-3 3.9 MEQ/L L=3.5 H=5.3 CHLORIDE 2075-0 103 MEQ/L L=96 H=110 CO2 2028-9 23 MEQ/L L=22 H=29 BUN 3094-0 17 MG/DL L=8 H=22 CREATININE 2160-0 1.0 MG/DL L=0.6 H=1.6 SGOT/AST 1920-8 18 IU/L L=10 H=40 SGPT/ALT 1742-6 38 IU/L L=8 H=54 ALK PHOS 6768-6 57 IU/L L=35 H=115 TOTAL PROTEIN 2885-2 6.9 G/DL L=5.5 H=8.5 ALBUMIN 1751-7 4.2 G/DL L=3.1 H=5.4 TOTAL BILI 1975-2 0.6 MG/DL L=0.0 H=1.5 CALCIUM 48923-6 9.8 MG/DL L=8.2 H=10.6 AGE 61 yrs GFR NonAA 76 GFR AA 92 eGFR >60 N/A eGFR AA* >60 N/A LIPASE - Collect Date/Time: 04/05/2017 11:50 Test Name Code Test Result Test Units Test Ref Range LIPASE 3040-3 25 U/L L=8 H=78 CBC W/ AUTO DIFF (RFLX MAN DIFF IF IND) - Collect Date/Time: 04/05/2017 11:50 Test Name Code Test Result Test Units Test Ref Range WBC 62902-9 6.6 TH/CMM L=4.5 H=10.8 RBC 789-8 4.68 ML/CMM L=4.70 H=6.10 HGB 718-7 14.0 G/DL L=14.0 H=18.0 HCT 4544-3 41.1 % L=42.0 H=52.0 MCV 88 FL L=81 H=99 MCH 29.9 PG L=27.0 H=33.0 MCHC 34.1 G/DL L=31.0 H=36.0 RDW SD 41 FL L=36 H=50 RDW CV 12.8 % L=0.0 H=14.8 MPV 9.0 FL L=9.3 H=12.5 PLT 777-3 232 TH/CMM L=130 H=440 NRBC# 0.00 TH/CMM L=0.00 H=0.00 NRBC% 0.0 /100WBC L=0.0 H=2.0 %NEUT 68.3 % %LYMP 21.9 % %MONO 7.6 % %EOS 1.1 % %BASO 0.5 % #NEUT 4.49 TH/CMM L=2.10 H=8.20 #LYMP 1.44 TH/CMM L=0.90 H=5.20 #MONO 0.50 TH/CMM L=0.16 H=1.00 #EOS 0.07 TH/CMM L=0.00 H=0.80 #BASO 0.03 TH/CMM L=0.00 H=0.20 MANUAL DIFF NOT IND N/A UA ROUTINE C&S IF IND - Collect Date/Time: 04/05/2017 14:23 Test Name Code Test Result Test Units Test Ref Range COLOR YELLOW N/A NL: YELLOW APPEARANCE CLEAR N/A NL: CLEAR SPEC GRAV 1.015 N/A NL: 1.002 - 1.022 pH 6.0 N/A NL: 5 - 9 PROTEIN NEGATIVE N/A NL: NEGATIVE mg/dl GLUCOSE NEGATIVE N/A NL: NEGATIVE mg/dl KETONE NEGATIVE N/A NL: NEGATIVE mg/dl BILIRUBIN NEGATIVE N/A NL: NEGATIVE BLOOD NEGATIVE N/A NL: NEGATIVE NITRITE NEGATIVE N/A NL: NEGATIVE LEUK SCREEN NEGATIVE N/A NL: NEGATIVE MICRO INDICATED? NOT INDICATED N/A BNP - Collect Date/Time: 04/05/2017 11:50 Test Name Code Test Result Test Units Test Ref Range BNP 48304-8 37 PG/ML L=0 H=100 TROPONIN-I ADV - Collect Date/Time: 04/05/2017 14:23 Test Name Code Test Result Test Units [place] [address]-2 <0.04 ng/mL L=0.04 H= 0.40 TROPONIN-I ADV - Collect Date/Time: 04/05/2017 11:50 Test Name Code Test Result Test Units [place] [address]-2 <0.04 ng/mL L=0.04 H= 0.40 Function Status Unknown or Not Available. History of Immunizations Unknown or Not Available. Plan of Treatment Unknown or Not Available. Social History Smoking Status Code Start Date End Date Never smoker [id number] Vital Signs Unknown or Not Available. Function Status Unknown or Not Available. Goals Unknown or Not Available. ASSESSMENTS Unknown or Not Available. Health Concerns Section Unknown or Not Available.
[2018-09-03 15:00] LABS: BASOPHILS % (AUTO) 0 % (0-10); EOSINOPHILS # (AUTO) 0.1 10^3/uL (0.0-0.3); EOSINOPHILS % (AUTO) 1 % (0-10); HEMATOCRIT 42 % (40-54); LYMPHOCYTES # (AUTO) 1.5 X 10^3 (1.0-4.0); LYMPHOCYTES % (AUTO) 16 % (12-44); MEAN CORPUSCULAR HEMOGLOBIN 30 PG (25-34); MEAN CORPUSCULAR HGB CONC 34 G/DL (32-36); MEAN CORPUSCULAR VOLUME 88 FL (80-99); MEAN PLATELET VOLUME 9.3 FL (7.4-10.4); MONOCYTES # (AUTO) 0.6 X 10^3 (0.0-1.0); MONOCYTES % (AUTO) 7 % (0-12); NEUTROPHILS # (AUTO) 6.9 X 10^3 (1.8-7.8); NEUTROPHILS % (AUTO) 76 % (42-75); PLATELET COUNT 237 10^3/uL (130-400); RED BLOOD COUNT 4.72 10^6/uL (4.35-5.85); RED CELL DISTRIBUTION WIDTH 14.3 % (10.0-14.5)
--- OUTSIDE RECORDS SUMMARY | 2018-09-03 15:04 | XMS REPORT | Continuity of Care Document ---
Author Author [facility] Organization [facility] Address Unknown Phone Unavailable Allergies Active Description Code Type Severity Reaction Onset Reported/Identified Relationship to Patient Clinical Status Yes LIDOCAINE [id number] DRUG N/A N/A Yes PENICILLIN [id number] CLASS N/A N/A Yes PENICILLINS (CLASS) [id number] CLASS N/A N/A Yes XYLOCAINE EP YOSSI 1##37; [id number] BRANDNAME N/A N/A Yes Penicillins [id number] Drug Allergy Severe Rash 12/10/2017 Yes diclofenac sodium [id number] Drug Allergy Unknown N/A 12/10/2017 Yes lidocaine HCl [id number] Drug Allergy Unknown LOW PULSE 12/10/2017 Medications [...] ANTONIO PEDRAZA, JUNE Valdivia Ot 478.19 07/19/2014 JUNE ALVAREZ MD Ot 780.4 07/19/2014 Ot 427.89 12/13/2014 Ot [...] MD Ot 723.0 CERVICAL SPINAL STENOSIS 05/17/2016 JODRAN GRANADOS APRN Ot M47.892 OTHER SPONDYLOSIS, CERVICAL [...] MD Ot 723.0 CERVICAL SPINAL STENOSIS 04/27/2017 JANEEN CHAMPION DO Ot 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 04/27/2017 NIKO CHAMPION DOI Ot E78.5 HYPERLIPIDEMIA, UNSPECIFIED 04/27/2017 NIKO CHAMPION DOI Ot G47.33 OBSTRUCTIVE SLEEP APNEA (ADULT) (PEDIATR 04/27/2017 NIKO CHAMPION DOI Ot I12.9 HYPERTENSIVE CHRONIC KIDNEY DISEASE W ST 04/27/2017 JAYCEE MILNER JANEEN Ot I25.110 ATHSCL 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 04/27/2017 NIKO CHAMPION DOI Ot J44.9 CHRONIC OBSTRUCTIVE PULMONARY DISEASE, U 04/27/2017 NIKO CHAMPION DOI Ot N18.9 CHRONIC KIDNEY DISEASE, UNSPECIFIED 04/27/2017 NIKO CHAMPION DOI Ot Z79.899 OTHER WOOD POLISHER (CURRENT) DRUG THERAPY 04/27/2017 JANEEN CHAMPION DO Ot Z82.49 FAMILY HX OF [place] HEART DIS AND OTH DI 05/02/2017 CHAMPION DO, JANEEN Ot E11.40 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 WITH DIABETIC N 05/02/2017 CHAMPION DO, JANEEN Ot G47.33 OBSTRUCTIVE SLEEP APNEA (ADULT) (PEDIATR 05/02/2017 CHAMPION DO, JANEEN Ot I12.9 HYPERTENSIVE CHRONIC KIDNEY DISEASE W ST 05/02/2017 CHAMPION DO, JANEEN Ot I25.10 ATHSCL HEART DISEASE OF [place] CORONARY 05/02/2017 CHAMPION DO, JANEEN Ot N18.2 CHRONIC KIDNEY DISEASE, STAGE 2 (MILD) 05/02/2017 CHAMPION DO, JANEEN Ot R07.9 CHEST PAIN, UNSPECIFIED 05/02/2017 CHAMPION DO, JANEEN Ot Z79.02 [facility]CI (CURRENT) USE OF ANTITHROMBOTI 05/02/2017 CHAMPION DO, JANEEN Ot Z79.84 [facility]CI (CURRENT) USE OF ORAL HYPOGLYC 05/02/2017 CHAMPION DO, JANEEN Ot Z79.899 OTHER WOOD POLISHER (CURRENT) DRUG THERAPY 05/02/2017 CHAMPION DO, JANEEN Ot Z95.5 PRESENCE OF CORONARY ANGIOPLASTY IMPLANT 05/02/2017 JAYCEE DO JANEEN Ot E11.40 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 WITH DIABETIC N 05/02/2017 CHAMPION DO, JANEEN Ot G47.33 OBSTRUCTIVE SLEEP APNEA (ADULT) (PEDIATR 05/02/2017 CHAMPION DO, JANEEN Ot I12.9 HYPERTENSIVE CHRONIC KIDNEY DISEASE W ST 05/02/2017 CHAMPION DO, JANEEN Ot I25.10 ATHSCL HEART DISEASE OF [place] CORONARY 05/02/2017 CHAMPION DO, JANEEN Ot N18.2 CHRONIC KIDNEY DISEASE, STAGE 2 (MILD) 05/02/2017 JAYCEE DO JANEEN Ot R07.9 CHEST PAIN, UNSPECIFIED 05/02/2017 CHAMPION DO JANEEN Ot Z79.02 [facility]CI (CURRENT) USE OF ANTITHROMBOTI 05/02/2017 CHAMPION DO, JANEEN Ot Z79.84 WOOD POLISHER (CURRENT) USE OF ORAL HYPOGLYC 05/02/2017 CHAMPION DO, JANEEN Ot Z79.899 OTHER [facility] (CURRENT) DRUG THERAPY 05/02/2017 CHAMPION DO, JANEEN Ot Z95.5 PRESENCE OF CORONARY ANGIOPLASTY IMPLANT 05/05/2017 CHAMPION DO JANEEN Ot 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 05/05/2017 JAYCEE DO, JANEEN Ot E78.5 HYPERLIPIDEMIA, UNSPECIFIED 05/05/2017 CHAMPION DO, JANEEN Ot G47.33 OBSTRUCTIVE SLEEP APNEA (ADULT) (PEDIATR 05/05/2017 CHAMPION DO, JANEEN Ot I12.9 HYPERTENSIVE CHRONIC KIDNEY DISEASE W ST 05/05/2017 CHAMPION DO, JANEEN Ot I25.110 ATHSCL 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 05/05/2017 CHAMPION DO, JANEEN Ot J44.9 CHRONIC OBSTRUCTIVE PULMONARY DISEASE, U 05/05/2017 CHAMPION DO, JANEEN Ot N18.9 CHRONIC KIDNEY DISEASE, UNSPECIFIED 05/05/2017 CHAMPION DO, JANEEN Ot Z79.899 OTHER [facility]CI (CURRENT) DRUG THERAPY 05/05/2017 CHAMPION DO, JANEEN Ot Z82.49 FAMILY HX OF [place] HEART DIS AND OTH DI 05/06/2017 CHAMPION DO, JANEEN Ot 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 05/06/2017 CHAMPION DO, JANEEN Ot E78.5 HYPERLIPIDEMIA, UNSPECIFIED 05/06/2017 CHAMPION DO, JANEEN Ot G47.33 OBSTRUCTIVE SLEEP APNEA (ADULT) (PEDIATR 05/06/2017 CHAMPION DO, JANEEN Ot I12.9 HYPERTENSIVE CHRONIC KIDNEY DISEASE W ST 05/06/2017 CHAMPION DO, JANEEN Ot I25.110 ATHSCL 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 05/06/2017 CHAMPION DO, JANEEN Ot J44.9 CHRONIC OBSTRUCTIVE PULMONARY DISEASE, U 05/06/2017 CHAMPION DO, JANEEN Ot N18.9 CHRONIC KIDNEY DISEASE, UNSPECIFIED 05/06/2017 CHAMPION DO, JANEEN Ot Z79.899 OTHER [facility] (CURRENT) DRUG THERAPY 05/06/2017 CHAMPION DO, JANEEN Ot Z82.49 FAMILY HX OF [place]HE[place] HEART DIS AND OTH DI 05/13/2017 DONITA PEDRAZA, BRI [place] Ot M54.6 PAIN IN THORACIC SPINE 05/14/2017 EDU PEDRAZA, Almaz ACOSTA Ot E11.9 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 WITHOUT COMPLIC 05/14/2017 EDU PEDRAZA, Almaz ACOSTA Ot I10 ESSENTIAL (PRIMARY) HYPERTENSION 05/14/2017 EDU PEDRAZA, Almaz ACOSTA Ot R00.1 BRADYCARDIA, UNSPECIFIED 05/14/2017 KHALID MD, M DAVE Ot R07.89 OTHER CHEST PAIN 05/14/2017 EDU PEDRAZA, M DAVE Ot E11.9 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 WITHOUT COMPLIC 05/14/2017 EDU PEDRAZA, M DAVE Ot I10 ESSENTIAL (PRIMARY) HYPERTENSION 05/14/2017 EDU [...] 2 DIABETES MELLITUS WITHOUT COMPLIC 05/21/2017 EDU PEDRAZA M DAVE Ot I10 ESSENTIAL (PRIMARY) HYPERTENSION 05/21/2017 EDU PEDRAZA M DAVE Ot R00.1 BRADYCARDIA, UNSPECIFIED 05/21/2017 EDU PEDRAZA M DAVE Ot R07.89 OTHER CHEST PAIN 05/21/2017 EDU PEDRAZA, M DAVE Ot E11.9 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 WITHOUT COMPLIC 05/21/2017 DEU PEDRAZA, M DAVE Ot I10 ESSENTIAL (PRIMARY) HYPERTENSION 05/21/2017 EDU PEDRAZA M DAVE Ot R00.1 BRADYCARDIA, UNSPECIFIED 05/21/2017 [...] Ot R00.1 BRADYCARDIA, UNSPECIFIED 05/23/2017 EDU PEDRAZA, Almaz ACOSTA Ot R07.89 OTHER CHEST PAIN 05/23/2017 EDU PEDRAZA, Almaz ACOSTA Ot R00.1 BRADYCARDIA, UNSPECIFIED 05/23/2017 Almaz SORENSEN MD Ot R07.89 OTHER CHEST PAIN 08/20/2017 Almaz SORENSEN MD Ot R00.1 BRADYCARDIA, UNSPECIFIED 08/20/2017 Almaz SORENSEN MD Ot R07.89 OTHER CHEST PAIN 08/21/2017 EDU PEDRAZA, Almaz ACOSTA Ot R00.1 BRADYCARDIA, UNSPECIFIED 08/21/2017 Almaz SORENSEN MD Ot R07.89 OTHER CHEST PAIN 09/08/2017 ANTONIO PEDRAZA, JUNE Valdivia Ot 478.19 OTHER DISEASE OF NASAL CAVITY AND SINUSE 09/08/2017 ANTONIO PEDRAZA, JUNE Valdivia Ot 780.4 DIZZINESS AND GIDDINESS 09/08/2017 Ot [...] MD Ot R07.89 OTHER CHEST PAIN 09/16/2017 EDU PEDRAZA, Almaz ACOSTA Ot I25.10 ATHSCL HEART DISEASE OF [place] CORONARY 09/16/2017 EDU PEDRAZA, Almaz ACOSTA Ot 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 10/27/2017 Almaz SORENSEN MD Ot I25.10 ATHSCL HEART DISEASE OF [place] CORONARY 10/27/2017 EDU PEDRAZA, Almaz ACOSTA Ot 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 11/19/2017 EDU PEDRAZA, Almaz ACOSTA Ot I25.10 ATHSCL HEART DISEASE OF [place] CORONARY 11/19/2017 EDU PEDRAZA, Almaz ACOSTA Ot 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 12/10/2017 Almaz SORENSEN MD Ot I25.10 ATHSCL HEART DISEASE OF [place] CORONARY 12/10/2017 EDU PEDRAZA, Almaz ACOSTA Ot [...] R07.89 OTHER CHEST PAIN 12/10/2017 EDU PEDRAZA, M DAVE Ot R00.1 BRADYCARDIA, UNSPECIFIED 12/10/2017 EDU PEDRAZA, M DAVE Ot R07.89 OTHER CHEST PAIN 12/10/2017 EDU PEDRAZA, M DAVE Ot I25.10 ATHSCL HEART DISEASE OF [place] CORONARY 12/10/2017 EDU PEDRAZA, M DAVE Ot 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 12/10/2017 EDU PEDRAZA, M DAVE Ot I25.10 ATHSCL HEART DISEASE OF [place] CORONARY 12/10/2017 EDU PEDRAZA, M DAVE Ot 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 12/10/2017 Ot 427.89 CARDIAC DYSRHYTHMIAS NEC 12/10/2017 EDU PEDRAZA, Almaz ACOSTA Ot R00.1 BRADYCARDIA, UNSPECIFIED 12/10/2017 EDU PEDRAZA, M DAVE Ot R07.89 OTHER CHEST PAIN 12/11/2017 JAYCEE [...] JANEEN Ot I25.1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 12/11/2017 JAYCEE MILNER JANEEN Ot N18.9 CHRONIC KIDNEY DISEASE, UNSPECIFIED 12/11/2017 JAYCEE MILNER JANEEN Ot R07.89 OTHER CHEST PAIN 12/11/2017 JAYCEE MILNER JANEEN Ot Z68.36 BODY MASS INDEX (BMI) 36.0-36.9, ADULT 12/11/2017 JAYCEE MILNER JANEEN Ot Z79.4 WOOD POLISHER (CURRENT) USE OF INSULIN 12/11/2017 JAYCEE MILNER JANEEN Ot Z88.0 ALLERGY STATUS TO PENICILLIN 12/11/2017 JAYCEE MILNER JANEEN Ot Z95.5 PRESENCE OF CORONARY ANGIOPLASTY IMPLANT 12/16/2017 CHAMPION DO, JANEEN Ot E11.42 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 WITH DIABETIC P 12/16/2017 CHAMPION DO, JANEEN Ot E66.9 OBESITY, UNSPECIFIED 12/16/2017 CHAMPION DO, JANEEN Ot E78.5 HYPERLIPIDEMIA, UNSPECIFIED 12/16/2017 CHAMPION DO, JANEEN Ot G47.33 OBSTRUCTIVE SLEEP APNEA (ADULT) (PEDIATR 12/16/2017 CHAMPION DO, JANEEN Ot I12.9 HYPERTENSIVE CHRONIC KIDNEY DISEASE W ST 12/16/2017 CHAMPION DO JANEEN Ot I25.1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 12/16/2017 CHAMPION DO, JANEEN Ot N18.9 CHRONIC KIDNEY DISEASE, UNSPECIFIED 12/16/2017 CHAMPION DO, JANEEN Ot R07.89 OTHER CHEST PAIN 12/16/2017 CHAMPION DO JANEEN Ot Z68.36 BODY MASS INDEX (BMI) 36.0-36.9, ADULT 12/16/2017 JAYCEE MILNER JANEEN Ot Z79.4 [facility]CI (CURRENT) USE OF INSULIN 12/16/2017 JAYCEE MILNER JANEEN Ot Z88.0 ALLERGY STATUS TO PENICILLIN 12/16/2017 JAYCEE MILNER JANEEN Ot Z95.5 PRESENCE OF CORONARY ANGIOPLASTY IMPLANT 01/09/2018 FADY SORENSEN MD Ot E11.65 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 WITH HYPERGLYCE 01/09/2018 FADY SORENSEN MD Ot I12.9 HYPERTENSIVE CHRONIC KIDNEY DISEASE W ST 01/09/2018 FADY SORENSEN MD Ot N18.2 CHRONIC KIDNEY DISEASE, STAGE 2 (MILD) 01/09/2018 FADY SORENSEN MD, Ot N28.1 CYST OF KIDNEY, ACQUIRED 01/19/2018 FADY SORENSEN MD, Ot E11.65 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 WITH HYPERGLYCE 01/19/2018 FADY SORENSEN MD Ot I12.9 HYPERTENSIVE CHRONIC KIDNEY DISEASE W ST 01/19/2018 FADY SORENSEN MD, Ot N18.2 CHRONIC KIDNEY DISEASE, STAGE 2 (MILD) 01/19/2018 FADY SORENSEN MD, Ot N28.1 CYST OF KIDNEY, ACQUIRED 04/07/2018 Ot E11.65 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 WITH HYPERGLYCE 04/07/2018 Ot E78.00 PURE HYPERCHOLESTEROLEMIA, UNSPECIFIED 04/07/2018 Ot E78.1 PURE HYPERGLYCERIDEMIA 04/07/2018 Ot Z00.00 ENCNTR FOR GENERAL ADULT MEDICAL EXAM W04/17/2018 Ot E11.65 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 WITH HYPERGLYCE 04/17/2018 Ot E78.00 PURE HYPERCHOLESTEROLEMIA, UNSPECIFIED 04/17/2018 Ot E78.1 PURE HYPERGLYCERIDEMIA 04/17/2018 Ot Z00.00 ENCNTR FOR GENERAL ADULT MEDICAL EXAM W06/04/2018 EDU PEDRAZA, Almaz ACOSTA Ot E66.9 OBESITY, UNSPECIFIED 06/04/2018 EDU PEDRAZA, lAmaz ACOSTA Ot I10 ESSENTIAL (PRIMARY) HYPERTENSION 06/04/2018 EDU PEDRAZA, Almaz ACOSTA Ot I25.10 ATHSCL HEART DISEASE OF [place] CORONARY 06/04/2018 EDU PEDRAZA, Almaz ACOSTA Ot I47.1 SUPRAVENTRICULAR TACHYCARDIA 06/04/2018 EDU PEDRAZA, Almaz ACOSTA Ot 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 06/04/2018 EDU PEDRAZA, Almaz ACOSTA Ot R00.1 BRADYCARDIA, UNSPECIFIED 06/18/2018 FADY SORENSEN MD Ot E11.65 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 WITH HYPERGLYCE 06/18/2018 FADY SORENSEN MD Ot I12.9 HYPERTENSIVE CHRONIC KIDNEY DISEASE W ST 06/18/2018 FADY SORENSEN MD Ot N18.2 CHRONIC KIDNEY DISEASE, STAGE 2 (MILD) 08/12/2018 CHAMPION DO, JANEEN Ot E11.65 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 WITH HYPERGLYCE 08/12/2018 CHAMPION DO, JANEEN Ot E78.00 PURE HYPERCHOLESTEROLEMIA, UNSPECIFIED 08/12/2018 CHAMPION DO, JANEEN Ot E78.1 PURE HYPERGLYCERIDEMIA 08/12/2018 CHAMPION DO, JANEEN Ot Z00.00 ENCNTR FOR GENERAL ADULT MEDICAL EXAM W08/14/2018 CHAMPION DO, JANEEN Ot E11.65 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 WITH HYPERGLYCE 08/14/2018 CHAMPION DO, JANEEN Ot E78.00 PURE HYPERCHOLESTEROLEMIA, UNSPECIFIED 08/14/2018 CHAMPION DO, JANEEN Ot E78.1 PURE HYPERGLYCERIDEMIA 08/14/2018 CHAMPION DO, JANEEN Ot Z00.00 ENCNTR FOR GENERAL ADULT MEDICAL EXAM 08/21/2018 CHAMPION DO, JANEEN Ot E11.65 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 WITH HYPERGLYCE 08/21/2018 JANEEN CHAMPION DO Ot E78.00 PURE HYPERCHOLESTEROLEMIA, UNSPECIFIED 08/21/2018 JANEEN CHAMPION DO Ot E78.1 PURE HYPERGLYCERIDEMIA 08/21/2018 JANEEN CHAMPION DO Ot Z00.00 ENCNTR FOR GENERAL ADULT MEDICAL EXAM W/ Procedures There is no data. Results Test Result Range PTH, Intact - 02/17/17 07:10 PTH, Intact 45 pg/mL 15-65 Complete blood count (CBC) with automated white [...] measurement by glucometer (mass/volume) 170 mg/dL 70-110 Urinalysis - 02/10/18 16:13 Icotest N/A Negative Urine Volume Urine Volume Sufficient (10mL) Urine Yeast No Yeast present Urine-Appearance Clear Clear Urine-Bacteria Negative Urine-Bilirubin Negative Negative Urine-Blood Trace-intact Negative Urine-Color Yellow Colorless-Lt. Yellow Urine-Epithelial Cells 0-5/HPF Urine-Glucose 3+ Negative Urine-Ketones Negative Negative Urine-Leukocytes Negative Negative Urine-Mucus 1+ Urine-Nitrite Negative Negative Urine-Other Culture to follow Urine-pH 5.0 5-8.5 Urine-Protein Negative Negative Urine-RBC Rare/HPF Urine-Specific [place] >=1.030 1.000-1.030 Urine-WBC Nothing Seen on Microscopic Urobilinogen 0.2 E.U./dL 0.2-1.0 Urine Culture - 02/10/18 16:13 PRELIM CULTURE RESULTS No Growth 24 hours FINAL CULTURE RESULTS No Growth 48 hours MEDIA PLATED Setup at 16:40 on 02/10/2018 CULTURE SOURCE urine Comprehensive metabolic panel - 08/06/18 08:45 Serum or plasma sodium measurement (moles/volume) 139 mmol/L 135-145 Serum or plasma potassium measurement (moles/volume) 4.4 mmol/L 3.6-5.0 Serum or plasma chloride measurement (moles/volume) 106 mmol/L 98-107 Carbon dioxide 23 mmol/L 21-32 Serum or plasma anion gap determination (moles/volume) 10 mmol/L 5-14 Serum or plasma urea nitrogen measurement (mass/volume) 17 mg/dL 7-18 Serum or plasma creatinine measurement (mass/volume) 0.92 mg/dL 0.60-1.30 Serum or plasma urea nitrogen/creatinine mass ratio 18 NRG Serum or plasma creatinine measurement with calculation of estimated glomerular filtration rate > NRG Serum or plasma glucose measurement (mass/volume) 202 mg/dL 70-105 Serum or plasma calcium measurement (mass/volume) 9.0 mg/dL 8.5-10.1 Serum or plasma total bilirubin measurement (mass/volume) 0.6 mg/dL 0.1-1.0 Serum or plasma alkaline phosphatase measurement (enzymatic activity/volume) 80 U/L 40-136 Serum or plasma aspartate aminotransferase measurement (enzymatic activity/ volume) 14 U/L 5-34 Serum or plasma alanine aminotransferase measurement (enzymatic activity/volume ) 38 U/L 0-55 Serum or plasma protein measurement (mass/volume) 7.0 g/dL 6.4-8.2 Serum or plasma albumin measurement (mass/volume) 4.6 g/dL 3.2-4.5 Lipid 1996 panel - 08/06/18 08:45 Serum or plasma triglyceride measurement (mass/volume) 39 mg/dL <150 Serum or plasma cholesterol measurement (mass/volume) 97 mg/dL < 200 Serum or plasma cholesterol in HDL measurement (mass/volume) 42 mg/ dL 40-60 Cholesterol in LDL [mass/volume] in serum or plasma by direct assay 44 mg/dL 1-129 Serum or plasma cholesterol in VLDL measurement (mass/volume) 8 mg/ dL 5-40 Hemoglobin A1c - 08/06/18 08:45 Blood hemoglobin A1C measurement (mass/volume) 7.7 % 4.0- 5.6 MEAN BLOOD GLUCOSE 174 % <=126 Encounters ACCT No. Visit Date/Time Discharge Status Pt. Type Provider Facility Loc./Unit Complaint [id number] 12/26/2017 17:12:32 12/26/2017 23:59:59 CLS Outpatient Nancy Carrero [id number] 08/06/2017 16:44:48 08/06/2017 23:59:59 CLS Outpatient Nancy Carrero [id number] 06/24/2017 16:03:20 06/24/2017 23:59:59 CLS Outpatient Nancy Carrero [id number] 04/20/2016 11:10:47 04/20/2016 23:59:59 CLS Outpatient Tej Hughes [id number] 03/21/2014 20:33:18 03/21/2014 23:59:59 CLS Outpatient Nancy Carrero [id number] 12/06/2013 16:40:35 12/06/2013 23:59:59 CLS Outpatient Walker, Chante [id number] 10/20/2013 15:46:00 10/20/2013 23:59:59 CLS Outpatient Walker, Chante [id number] 09/23/2013 09:06:24 09/23/2013 23:59:59 CLS Outpatient Walker, Chante [id number] 09/16/2013 09:45:27 09/16/2013 23:59:59 CLS Outpatient Walker, Chante [id number] 09/02/2013 09:50:02 09/02/2013 23:59:59 CLS Outpatient Walker, Chante [id number] 08/06/2013 09:20:07 08/06/2013 23:59:59 CLS Outpatient Walker, Chante [id number] 02/18/2017 11:05:00 Document Registration [id number] 02/10/2018 16:10:00 02/10/2018 23:59:00 DIS Outpatient Janeen Champion [id number] 08/06/2018 08:35:00 08/06/2018 23:59:59 CLS Outpatient JANEEN CHAMPION DO [facility] LAB E11.65 [id number] 06/17/2018 09:31:00 06/17/2018 23:59:59 CLS Outpatient FADY SORENSEN MD [facility] LAB HYPERTENSION,CKD [id number] 05/18/2018 08:31:00 05/18/2018 23:59:59 CLS Outpatient Almaz SORENSEN MD [facility] CARD BRADYCARDIA,CAD,HTN, OBESITY [id number] 01/08/2018 13:15:00 01/08/2018 23:59:59 CLS Outpatient FADY SORENSEN MD [facility] RAD HYPERTENSION-BENIGN, CHRONIC KIDNEY DISEASE, DM2 [id number] 12/10/2017 18:20:00 12/11/2017 18:00:00 DIS Outpatient JANEEN CHAMPION DO [facility] CATH CHEST PAIN, CAD [id number] 11/18/2017 08:39:00 11/18/2017 23:59:59 CLS Outpatient Almaz SORENSEN MD [facility] CARD I25.10 CAD [id number] 09/15/2017 12:33:00 09/15/2017 23:59:59 CLS Outpatient Almaz SORENSEN MD [facility] CARD 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 [id number] 08/21/2017 12:30:00 08/21/2017 23:59:59 CLS Preadmit Almaz SORENSEN MD [facility] CARD CHEST TIGHTNESS R07.89 [id number] 06/12/2017 08:01:00 08/20/2017 00:01:00 DIS Outpatient Almaz SORENSEN MD [facility] CARD CHEST TIGHTNESS R07.89 [id number] 06/18/2017 15:30:00 06/18/2017 23:59:59 CLS Preadmit Almaz SORENSEN MD [facility] CARD BRADYCARDIA [id number] 05/15/2017 14:53:00 05/17/2017 00:01:00 DIS Outpatient Almaz SORENSEN MD [facility] CARD CHEST TIGHTNESS R07.89 [id number] 05/13/2017 17:51:00 05/13/2017 18:09:00 DIS Emergency BRI DUCKWORTH MD [facility] ER MID BACK PAIN [id number] 05/12/2017 10:40:00 05/12/2017 23:59:59 CLS Outpatient Almaz SORENSEN MD [facility] CARD BRADYCARDIA [id number] 05/12/2017 10:38:00 05/12/2017 23:59:59 CLS Outpatient Almaz SORENSEN MD [facility] CARD CHEST TIGHTNESS R07.89 [id number] 05/01/2017 16:45:00 05/02/2017 16:45:00 DIS Inpatient JANEEN CHAMPION DO [facility] ICU CHEST PAIN POST RCA STENT [id number] 04/25/2017 20:20:00 04/27/2017 13:26:00 DIS Outpatient JANEEN CHAMPION DO [facility] CATH CHEST PAIN [id number] 04/23/2017 15:32:00 04/23/2017 23:59:59 CLS Preadmit EDU PEDRAZA, Almaz ACOSTA [facility] CARD CHEST TIGHTNESS [id number] 05/17/2016 09:01:00 05/17/2016 11:35:00 DIS Emergency JORDAN GRANADOS APRN [facility] ER POST NECK SURGERY [id number] 04/13/2015 09:03:00 04/13/2015 23:59:59 CLS Outpatient SATHISH SALOMON MD [facility] RAD RADICULOPATHY [id number] 12/13/2014 06:44:00 12/13/2014 08:44:00 DIS Emergency BRI DUCKWORTH MD [facility] ER RT SIDE ABD PAIN [id number] 01/20/2014 15:48:00 04/20/2014 00:01:00 DIS Outpatient JANEEN CHAMPION DO [facility] CARD PALP [id number] 03/17/2014 15:36:00 03/17/2014 23:59:59 CLS Outpatient JUNE ALVAREZ MD [facility] RAD HEADACHE SINUS PRESSURE [id number] 2018 14:44:00 ACT Emergency BRI DUCKWORTH MD [facility] ER CHEST PAIN [id number] 04/03/2018 06:01:00 Document Registration [id number] 04/21/2014 15:30:00 Document Registration [id number] 12/12/2011 07:45:00 Document Registration [id number] 11/13/2011 15:27:00 Document Registration [id number] 10/21/2011 11:58:00 Document Registration [id number] 10/17/2011 10:40:00 Document Registration [id number] 10/16/2011 10:24:00 Document Registration [id number] 09/25/2011 12:21:00 Document Registration [id number] 08/09/2011 20:48:00 Document Registration [id number] 06/01/2011 18:16:00 Document Registration [id number] 12/09/2017 09:28:04 Document Registration [id number] 12/09/2017 09:24:47 Document Registration [id number] 12/04/2017 07:11:29 Document Registration [id number] 08/27/2017 07:54:03 Document Registration [id number] 06/26/2017 15:10:40 Document Registration [id number] 06/26/2017 12:29:00 Document Registration [id number] 06/26/2017 12:25:15 Document Registration [id number] 05/21/2017 07:15:33 Document Registration [id number] 04/05/2017 11:36:38 Document Registration [id number] 04/05/2017 11:24:29 Document Registration
--- NOTE | 2018-09-03 15:09 | Diagnostic Imaging Report ---
INDICATION: Chest pain. Frontal chest obtained at 03:01 hours p.m. Heart and mediastinal silhouette are normal in appearance. The lungs are clear. There is no pneumothorax or pleural fluid. There are calcified granuloma in the right hilum and paratracheal region. IMPRESSION: Old granulomatous changes. No acute process in the chest. Dictated by: Dictated on workstation # [id number]
[2018-09-03 15:16] LABS: PROTHROMBIN TIME PATIENT 13.4 SEC (12.2-14.7)
[2018-09-03 15:26] LABS: ALANINE AMINOTRANSFERASE 32 U/L (0-55); ALBUMIN 4.6 GM/DL (3.2-4.5); ALKALINE PHOSPHATASE 62 U/L (40-136); BILIRUBIN,TOTAL 0.7 MG/DL (0.1-1.0); BUN/CREATININE RATIO 14; CALCIUM 9.2 MG/DL (8.5-10.1); CARBON DIOXIDE 20 MMOL/L (21-32); CHLORIDE 104 MMOL/L (98-107); CREATININE SERUM 0.98 MG/DL (0.60-1.30); GFR ESTIMATED > 60; GLUCOSE 144 MG/DL (70-105); MAGNESIUM 2.7 MG/DL (1.8-2.4); POTASSIUM 5.8 MMOL/L (3.6-5.0); SODIUM 137 MMOL/L (135-145); TOTAL PROTEIN 7.8 GM/DL (6.4-8.2)
[2018-09-03 15:27] LABS: MYOGLOBIN SERUM 140.8 NG/ML (10.0-92.0)
--- NOTE | 2018-09-03 15:36 | Consultation-Cardiology ---
HPI-Cardiology Cardiology Consultation: Date of Consultation 09/03/18 Date of Admission Attending Physician Admitting Physician Yulia Cruz DO Consulting Physician Almaz COKER MD HPI: Time Seen by a Provider: 15:15 Chief Complaint: Chest pain This is a 61-year-old gentleman who sees Dr. Cruz. The patient has history of diabetes, hypertension, he denies hypercholesterolemia and smoking. He has family history of premature coronary artery disease. His mother had an [place] at an early age. He was out duck hunting and complained of chest pain in the substernal area. No radiation. Similar to his previous discomfort. No exacerbating or relieving factors. Previous history includes bradycardia and chest tightness usually at the same time. we had requested echocardiogram and nuclear stress testing. However before he could get a nuclear stress test he came with a prolonged episode of chest pain to the hospital. Coronary angiography was performed by Dr. Yoon. A 70 percent stenosis was seen in the mid RCA which was treated with a drug- eluting stent. This was done on 04/26/2017. He presented again with mild discomfort and had a nuclear stress test on 05/02/2017 which did not show any perfusion abnormalities. He had coronary angiography again in 11/2017 which showed patent RCA stent with no significant other CAD. A Holter monitor was done on 05/12/2017 which shows sinus rhythm with variable ventricular rate. Minimum heart rate of 41 bpm and maximum heart rate of 109 BPM. Lowest heart rate of 41 bpm was early in the morning when the patient was sleeping. There were 11,377 PACs and 606 PVCs. No other arrhythmias were noted. Symptoms of chest discomfort was correlated with sinus rhythm and PACs. Review of Systems-Cardiology Review of Systems Constitutional: As described under HPI; No As described under HPI, No no symptoms reported, No chills, No fever, No lightheadedness Eyes: No As described under HPI, No no symptoms reported, No blindness, No blurred vision, No contact lenses, No drainage, No decreased acuity, No foreign body sensation, No pain, No vision change Ears/Nose/Throat: No As described under HPI, No no symptoms reported, No chronic hearing loss, No ear discharge, No ear pain, No nasal drainage, No ulcerations Respiratory: No no symptoms reported; As described under HPI; No As described under HPI, No cough, No orthopnea, No shortness of breath, No SOB with excertion Cardiovascular: No no symptoms reported; As described under HPI; No As described under HPI; chest pain; No edema, No irregular heart rate, No lightheadedness, No palpitations Gastrointestinal: No no symptoms reported, No As described under HPI, No abdomen distended, No abdominal pain, No blood streaked bowels, No constipation , No diarrhea, No nausea, No vomiting, No stool coloration changes Genitourinary: No As described under HPI, No burning, No dysuria, No discharge , No frequency, No flank pain, No hematuria, No urgency Skin: No rash, No skin related problems, No ulcerations Psychiatric/Neurological: No anxiety, No depression, No seizure, No focal weakness, No syncope Hematologic: No bleeding abnormalities ZAB-Zlbukv-Vhhemq Hx Patient Social History Alcohol Use: Occasionally Uses Recreational Drug Use: No Smoking Status: Former Smoker Type Used: Cigarettes 2nd Hand Smoke Exposure: No Recent Foreign Travel: No Recent Infectious Disease Expo: No Hospitalization with Isolation: Denies Immunizations Up To Date Tetanus Booster (TDap): Unknown Date of Pneumonia Vaccine: May 18, 2015 Date of Influenza Vaccine: Jan 16, 2011 Past Medical History PMH As described under Assessment. Family Medical History Family History: Asthma 19 FATHER, Onset:Unknown Colon cancer maternal grandmother, Onset:Unknown Dementia 19 FATHER, Onset:60 years & older FH: congestive heart failure maternal grandfather, Onset:Unknown FHx: colon cancer Myocardial infarction 19 MOTHER, Onset:60 years & older Allergies and Home Medications Allergies Coded Allergies: Penicillins (Verified Allergy, Severe, Rash, 12/10/17) diclofenac sodium (Verified Allergy, Unknown, 12/10/17) lidocaine HCl (Verified Allergy, Unknown, LOW PULSE, 12/10/17) Home Medications Amlodipine Besylate 10 Mg Tablet, 10 MG PO DAILY, (Reported) Aspirin 81 Mg Tablet.dr, 81 MG PO DAILY, (Reported) Atorvastatin Calcium 40 Mg Tablet, 40 MG PO HS, (Reported) Cetirizine HCl 10 Mg Tablet, 10 MG PO DAILY, (Reported) Clopidogrel Bisulfate 75 Mg Tablet, 75 MG PO HS, (Reported) Doxazosin Mesylate 4 Mg Tablet, 4 MG PO HS, (Reported) Epinephrine 0.3 Mg/0.3 Ml Auto.injct, 0.3 MG IJ UD PRN for ALLERGIC REACTION, ( Reported) Ergocalciferol (Vitamin D2) 50,000 Unit Capsule, 50,000 UNIT PO MoTh, (Reported) Famotidine 20 Mg Tablet, 20 MG PO DAILY, (Reported) Fluticasone Propionate 16 Gm [place].susp, 2 SPRAYS NS DAILY, (Reported) Hydrocodone/Acetaminophen 1 Each Tablet, 1 TAB PO TID PRN for PAIN-MODERATE, ( Reported) Insulin Aspart 300 Units/3 Ml Solution, 10 UNITS SQ TIDWM, (Reported) Insulin Detemir 100 Unit/1 Ml Insuln.pen, 45 UNITS SC HS, (Reported) Lisinopril 10 Mg Tablet, 10 MG PO HS, (Reported) Montelukast Sodium 10 Mg Tablet, 10 MG PO HS, (Reported) Nitroglycerin 0.4 Mg Tab.subl, 0.4 MG SL UD PRN for CHEST PAIN, (Reported) Tizanidine HCl 4 Mg Tablet, 8 MG PO HS, (Reported) TAKES 2 (4MG) TABLETS Tizanidine HCl 4 Mg Tablet, 2 MG PO QID PRN for HEADACHE, (Reported) TAKES 1/2 (4MG) TABLET Patient Home Medication List Home Medication List Reviewed: Yes Physical Exam-Cardiology Physical Exam Vital Signs/I&O 09/03/18 09/03/18 14:45 14:45 Temp 98.5 Pulse 80 Resp 18 B/P (MAP) 132/85 (101) Pulse Ox 97 O2 Delivery Room Air Room Air Capillary Refill : Less Than 3 Seconds Constitutional: appears stated age, AAO x 3; No apparent distress; well- developed, well-nourished HEENT: PERRL; No normal ENT inspection, No TMs normal, No pharynx normal, No scleral icterus (R), No scleral icterus (L), No pale conjunctivae (R), No pale conjunctivae (L), No photophobia, No TM abnormal (R), No TM abnormal (L), No pharyngeal erythema, No tonsillar exudate, No other, No discharge, No EOMI; hearing is well preserved; No hard of hearing; oral hygience is good; No ulceration, No xanthelasmas are seen Neck: No non-tender, No full range of motion, No supple, No normal inspection, No carotid bruit, No limited range of motion, No lymphadenopathy (R), No lymphadenopathy (L), No tender lateral, No tender midline, No thyromegaly, No other; carotid pulses are 2 + bilaterally; No with good upstrokes Respiratory: No accessory muscle use, No respiratory distress, No chest tender , No chest expansion is symmetric; chest is bilaterally symmetric; No lungs clear to percussion; lungs clear to auscultation; No crackles, No rhonchi, No rales, No stridor, No wheezing, No pleural rub, No other Cardiovascular: regular rate-rhythm; No irregularly irregular, No extra beats, No parasternal heave is noted, No JVD, No edema, No bradycardia, No tachycardia , No point of maximal impulse, No cardiac thrills are palpable; S1 and S2; No gallop/S3, No gallop/S4, No diastolic murmur, No systolic murmur, No friction rub, No click, No other Gastrointestinal: No tender, No soft, No round, No distended, No pulsatile mass , No organomegaly, No guarding, No rebound, No tenderness, No hernia, No mass, No audible bowel sounds, No abnormal bowel sounds, No abdominal bruits, No spleenomegaly, No other Rectal: deferred Extremities: No normal range of motion, No non-tender, No normal inspection, No pedal edema, No calf tenderness, No normal capillary refill, No pelvis stable , No calf tenderness, No inflammation, No pedal edema, No slow capillary refill , No swelling, No other, No abrasion, No clubbing, No cyanosis, No ecchymosis, No laceration, No no lower extremity edema bilateral, No significant edema, No tenderness, No wound Neurologic/Psychiatric: no motor/sensory deficits, alert, normal mood/affect, oriented x 3, power is 5/5 both on sides Skin: No normal color, No warm/dry, No cyanosis, No cool, No diaphoresis, No damp, No ecchymosis, No jaundice, No mottled, No pallor, No rash, No tattoos/ piercings, No ulcerations, No rash on exposed areas, No ulcerations on exposed areas, No other Data Review Labs Laboratory Tests 09/03/18 14:50: White Blood Count 9.0, Red Blood Count 4.72, Hemoglobin 14.0, Hematocrit 42, Mean Corpuscular Volume 88, Mean Corpuscular Hemoglobin 30, Mean Corpuscular Hemoglobin Concent 34, Red Cell Distribution Width 14.3, Platelet Count 237, Mean Platelet Volume 9.3, Neutrophils (%) (Auto) 76H, Lymphocytes (%) (Auto) 16 , Monocytes (%) (Auto) 7, Eosinophils (%) (Auto) 1, Basophils (%) (Auto) 0, Neutrophils # (Auto) 6.9, Lymphocytes # (Auto) 1.5, Monocytes # (Auto) 0.6, Eosinophils # (Auto) 0.1, Basophils # (Auto) 0.0, Sodium Level 137, Potassium Level 5.8H, Chloride Level 104, Carbon Dioxide Level 20L, Anion Gap 13, Blood Urea Nitrogen 14, Creatinine 0.98, Estimat Glomerular Filtration Rate > 60, BUN/ Creatinine Ratio 14, Glucose Level 144H, Calcium Level 9.2, Corrected Calcium , Magnesium Level 2.7H, Total Bilirubin 0.7, Aspartate Amino Transf (AST/SGOT) 38H , Alanine Aminotransferase (ALT/SGPT) 32, Alkaline Phosphatase 62, Myoglobin 140.8H, Troponin I < 0.028, Total Protein 7.8, Albumin 4.6H ECG Impression ECG Initial ECG Rhythm: Normal Sinus Initial ECG Impression: Nonspecific Changes A/P-Cardiology Assessment/Admission Diagnosis Prolonged episode of chest pain, Hypertension, CAD, Hyperlipidemia, Plan Chest pain: Elevated myoglobin however the first troponin is negative. We will admit to rule out with serial troponin. We'll request an echocardiogram. If the patient has positive serial troponin, coronary angiography will be recommended. Otherwise he may consider nuclear stress testing. He complained previously of bradycardia and chest tightness usually at the same time. we had requested echocardiogram and nuclear stress testing. However before he could get a nuclear stress test he came with a prolonged episode of chest pain to the hospital. Coronary angiography was performed by Dr. Yoon. A 70 percent stenosis was seen in the mid RCA which was treated with a drug-eluting stent Xience Alpine 4.0x15mm. This was done on 04/26/2017. echocardiogram done on 05/12/2017 showed normal LV function. No significant valvular heart disease. Aorta is mildly dilated. Follow-up imaging will be recommended in 6 months. He presented again with mild discomfort and had a nuclear stress test on 05/02/2017 which did not show any perfusion abnormalities. A Holter monitor was done on 05/12/2017 which shows sinus rhythm with variable ventricular rate. Minimum heart rate of 41 bpm and maximum heart rate of 109 BPM. Lowest heart rate of 41 bpm was early in the morning when the patient was sleeping. There were 11,377 PACs and 606 PVCs. No other arrhythmias were noted. Symptoms of chest discomfort was correlated with sinus rhythm and PACs. CAD: Stable. Continue aspirin and Plavix. Importance of Plavix was emphasized. Patient will also continue statin. Coronary angiography on 2017 shows normal stent in the RCA. Patent left main, LAD and left circumflex artery. LVEDP 16 mmHg. Bradycardia: Improved heart rate. Previously Lowest heart rate of 41 BPM was noted during sleep during Holter monitor. Due to bradycardia he is not on a beta joaquim. Frequent PACs and PVCs. However heart rate has improved significantly and we will start low-dose of beta joaquim. We'll start Toprol- XL 12.5 mg daily. Hypertension: Salt restriction was recommended. Continue lisinopril. Continue torsemide, Aldactone and potassium supplementation, we had discontinued all 3 medications after his last coronary angiography on 12/11/2017. Hyperlipidemia: On 02/25/2017 the patient's total cholesterol was 149, triglyceride was 85, HDL 35, LDL 97. Based on the current ACC/AHA guidelines his risk of stroke and CAD is 25 percent at 10 years. Therefore it is recommended that he starts aspirin, and high intensity statin. Previously I started him on Lipitor 40 mg daily. He will require lipid profile in the near future. History of Dilated aorta: Previously Aortic root diameter 4.1 cm. repeat echocardiogram in November 2017 shows an aortic root of 3.8 cm which is within normal limits. Repeat in May 2018. Patient has diabetes. History of Paroxysmal atrial tachycardia. Event monitor done in April 2017 showed a brief episode of PAT at 155 BPM. Patient will continue current medical therapy. However if he continues to have recurrent palpitations I will recommend implantable loop recorder for atrial fibrillation surveillance. Left leg discomfort: This could be claudication equivalent or secondary to his vertebral disc problem. However the patient does have diabetes and CAD therefore is at risk for PAD. AGGIE were negative. Unlikely severe PAD. Thank you for your consultation. Please call me if you have any questions. Miriam Coker MD, FACP, FACC, FSCAI, FHRS, CCDS Interventional Cardiology Cardiac Electrophysiology Vascular Medicine and Endovascular Interventions Clinical Quality Measures AMI/AHF: ASA po Prior to arrival: Yes Almaz COKER MD Sep 03, 2018 15:36
[2018-09-03] MEDS ORDERED: METO-387 PO (15:49)
[2018-09-03] MEDS ORDERED: LISI-552 PO (15:49)
[2018-09-03] MEDS ORDERED: TORS10TA5 PO (15:49)
[2018-09-03] MEDS ORDERED: SPIR50TA4 PO (15:49)
[2018-09-03] MEDS ORDERED: GABA-486 PO (15:49)
[2018-09-03] MEDS ORDERED: POTA10TA10 PO (15:49)
[2018-09-03] MEDS ORDERED: RANI-514 PO (15:49)
[2018-09-03] MEDS ORDERED: FEXO-14 PO (15:49)
--- NOTE | 2018-09-03 15:50 | NUR ---
PATIENT HAD A LIST OF HIS MEDICATIONS WITH HIM. WE WENT OVER THAT WELL THE EXT MED HX. THE EXT MED HX SHOWS HIS POTASSIUM FILLED #120 FOR 30 DAYS HOWEVER HE STATES HE ONLY TAKES 1 DAILY. IN ADDITION TO WHAT IS SHOWN ON THE EXT MED HX ROSEANNE VICENTE HAS FILLED: 08-13-18 LEVEMIR 08-05-18 NORVASC 10MG DAILY #30 07-24-18 NOVOLOG HIS TIZANIDINE WAS LAST FILLED #120 01-14-18 1 AM, 1 NOON, 2 HS HOWEVER HE STATES HE TAKES 1 AT HS AND 1/2 BID PRN HEADACHES. HE TAKES IT LESS NOW THAT HE WAS PRESCRIBED GABAPENTIN. HE TAKES THE FOLLOWING OTC: ZANTAC 75MG DAILY DINA DAILY ASPIRIN 81MG DAILY HE STATES HE HAS NITRO AND AN EPIPEN ON HAND IF NEEDED.
--- NOTE | 2018-09-03 16:06 | NUR ---
[employer] P[employer]ER CONTACTED FOR A BED.
--- NOTE | 2018-09-03 16:25 | ED Chest Pain ---
General Chief Complaint: Chest Pain Stated Complaint: CHEST PAIN Nursing Triage Note: PT AMB TO [facility] W/O DIFFICULTY. A&OX4. C/O MEDIAL CHEST DISCOMFORT RADIATING TO RT SIDE OF BACK. PT REPORTS APPROX 1330 HE WAS DUCK HUNTING WHEN PAIN SUDDENLY CAME ON. PT REPORTS PAIN DECREASES WHEN HE LAYS DOWN. PAIN ACCOMPANIED BY NAUSEA. UPON ARRIVAL PT REPORTS HE IS NOT CURRENTLY HAVING CHEST DISCOMFORT. PT REPORTS HE HAS FELT SIIMILAR CHEST PAIN LAST YEAR AND HAD CARDIAC STENT PLACEMENT. DENIES RECENT SWELLING. Nursing Sepsis Screen: No Definite Risk Source: patient Exam Limitations: no limitations History of Present Illness Date Seen by Provider: Sep 03, 2018 Time Seen by Provider: 14:50 Initial Comments Here with report of central chest pain that radiates to the back. Onset while duck hunting after he shot a duck and was in the active retrieving it. He notes the pain was persistent since onset and continued until arrival here which has been more than 30 minutes. Does have history of cardiac disease and diabetes as well as hypertension. Does have previous stent. Does follow with Dr. Vásquez and Dr. 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 NTG SL SPLITTING MACHINE TENDER: No Associated Symptoms: No abdominal pain; back pain; No dizziness; nausea/ vomiting (nausea); No shortness of breath, No weakness Allergies and Home Medications Allergies Coded Allergies: Penicillins (Verified Allergy, Severe, Rash, 12/10/17) diclofenac sodium (Verified Allergy, Unknown, 12/10/17) lidocaine HCl (Verified Allergy, Unknown, LOW PULSE, 12/10/17) Home Medications Amlodipine Besylate 10 Mg Tablet, 10 MG PO DAILY, (Reported) Aspirin 81 Mg Tablet.dr, 81 MG PO DAILY, (Reported) Atorvastatin Calcium 40 Mg Tablet, 40 MG PO HS, (Reported) Doxazosin Mesylate 4 Mg Tablet, 4 MG PO HS, (Reported) Epinephrine 0.3 Mg/0.3 Ml Auto.injct, 0.3 MG IJ UD PRN for ALLERGIC REACTION, ( Reported) Ergocalciferol (Vitamin D2) 50,000 Unit Capsule, 50,000 UNIT PO MoTh@2100, ( Reported) Fexofenadine HCl 60 Mg Tablet, 60 MG PO DAILY, (Reported) Fluticasone Propionate 16 Gm [place].susp, 2 SPRAYS NS DAILY, (Reported) Gabapentin 100 Mg Capsule, 100 MG PO BID, (Reported) Hydrocodone/Acetaminophen 1 Each Tablet, 1 TAB PO TID PRN for PAIN-MODERATE, ( Reported) Insulin Aspart 300 Units/3 Ml Solution, 10 UNITS SQ TIDAC, (Reported) Insulin Detemir 100 Unit/1 Ml Insuln.pen, 45 UNITS SC HS, (Reported) Lisinopril 20 Mg Tablet, 20 MG PO HS, (Reported) Metoprolol Succinate 25 Mg Tab.er.24h, 12.5 MG PO HS, (Reported) TAKES 1/2 (25MG) TABLET Nitroglycerin 0.4 Mg Tab.subl, 0.4 MG SL UD PRN for CHEST PAIN, (Reported) Potassium Chloride 10 Meq Tablet.er, 10 MEQ PO DAILY, (Reported) Ranitidine HCl 75 Mg Tablet, 75 MG PO DAILY, (Reported) Spironolactone 50 Mg Tablet, 50 MG PO DAILY, (Reported) Tizanidine HCl 4 Mg Tablet, 4 MG PO HS, (Reported) Tizanidine HCl 4 Mg Tablet, 2 MG PO BID PRN for HEADACHE, (Reported) TAKES 1/2 (4MG) TABLET Torsemide 10 Mg Tablet, 10 MG PO DAILY, (Reported) Patient Home Medication List Home Medication List Reviewed: Yes Review of Systems Review of Systems Constitutional: see HPI; No chills, No fever EENTM: No Symptoms Reported Respiratory: No Symptoms Reported Cardiovascular: See HPI, Chest Pain; Denies Edema Gastrointestinal: Denies Diarrhea; Nausea; Denies Vomiting Genitourinary: No Symptoms Reported Musculoskeletal: no symptoms reported All Other Systems Reviewed Negative Unless Noted: Yes Past Mzqgqvo-Vncexx-Zioygd Hx Past Med/Social Hx: Reviewed Nursing Past Med/Soc Hx Patient Social History Alcohol Use: Occasionally Uses Number of Drinks Today: HH Alcohol Beverage of Choice: Beer, Wine Recreational Drug Use: No Smoking Status: Former Smoker Type Used: Cigarettes 2nd Hand Smoke Exposure: No Recent Foreign Travel: No Contact w/Someone Who Travel: No Recent Infectious Disease Expo: No Recent Hopitalizations: Yes Physical Abuse: No Sexual Abuse: No Immunizations Up To Date Tetanus Booster (TDap): Unknown PED Vaccines UTD: No Date of Pneumonia Vaccine: May 18, 2015 Date of Influenza Vaccine: Jan 16, 2011 Seasonal Allergies Seasonal Allergies: No Past Medical History Surgeries: Yes (l shoulder, l testicle) Coronary Stent, Gallbladder, Orthopedic, Tonsillectomy, Vasectomy Respiratory: No Sleep Apnea Currently Using CPAP: Yes (at home) Currently Using BIPAP: No Cardiac: Yes Coronary Artery Disease, High Cholesterol, Hypertension Neurological: No Neuropathy Genitourinary: No Renal Failure Gastrointestinal: No Gastroesophageal Reflux, Ulcer Musculoskeletal: Yes Degenerate Disk Disease, Arthritis Endocrine: Yes Diabetes, Insulin dep HEENT: No Cataract Cancer: No Psychosocial: No Integumentary: No Blood Disorders: No Adverse Reaction/Blood Tranf: No Family Medical History Reviewed Nursing Family Hx Asthma 19 FATHER, Onset:Unknown Colon cancer maternal grandmother, Onset:Unknown Dementia 19 FATHER, Onset:60 years & older FH: congestive heart failure maternal grandfather, Onset:Unknown FHx: colon cancer Myocardial infarction 19 MOTHER, Onset:60 years & older Diabetes Physical Exam Vital Signs Vital Signs - First Documented 09/03/18 14:45 Temp 98.5 Pulse 80 Resp 18 B/P (MAP) 132/85 (101) Pulse Ox 97 O2 Delivery Room Air Capillary Refill : Less Than 3 Seconds Height, Weight, BMI Height: 5'10.00" Weight: 260lbs. 1.0oz. 117.635230nn; 36.7 BMI Method:Stated General Appearance: No Apparent Distress, WD/WN HEENT: PERRL/EOMI, Pharynx Normal Neck: Full Range of Motion, Non Tender Respiratory: Lungs Clear, Normal Breath Sounds Cardiovascular: Regular Rate, Rhythm, No Murmur Gastrointestinal: Non Tender, Soft Extremity: Normal Range of Motion, Non Tender Neurologic/Psychiatric: Alert, Oriented x3 Skin: Normal Color, Warm/Dry Progress/Results/Core Measures Results/Orders Lab Results Laboratory Tests Test 09/03/18 14:50 Range/Units White Blood Count 9.0 4.3-11.0 10^3/uL Red Blood Count 4.72 4.35-5.85 10^6/uL Hemoglobin 14.0 13.3-17.7 G/DL Hematocrit 42 40-54 % Mean Corpuscular Volume 88 80-99 FL Mean Corpuscular Hemoglobin 30 25-34 PG Mean Corpuscular Hemoglobin Concent 34 32-36 G/DL Red Cell Distribution Width 14.3 10.0-14.5 % Platelet Count 237 130-400 10^3/uL Mean Platelet Volume 9.3 7.4-10.4 FL Neutrophils (%) (Auto) 76 H 42-75 % Lymphocytes (%) (Auto) 16 12-44 % Monocytes (%) (Auto) 7 0-12 % Eosinophils (%) (Auto) 1 0-10 % Basophils (%) (Auto) 0 0-10 % Neutrophils # (Auto) 6.9 1.8-7.8 X 10^3 Lymphocytes # (Auto) 1.5 1.0-4.0 X 10^3 Monocytes # (Auto) 0.6 0.0-1.0 X 10^3 Eosinophils # (Auto) 0.1 0.0-0.3 10^3/uL Basophils # (Auto) 0.0 0.0-0.1 10^3/uL Prothrombin Time 13.4 12.2-14.7 SEC INR Comment 1.0 0.8-1.4 Activated Partial Thromboplast Time 29 24-35 SEC Sodium Level 137 135-145 MMOL/L Potassium Level 5.8 H 3.6-5.0 MMOL/L Chloride Level 104 98-107 MMOL/L Carbon Dioxide Level 20 L 21-32 MMOL/L Anion Gap 13 5-14 MMOL/L Blood Urea Nitrogen 14 7-18 MG/DL Creatinine 0.98 0.60-1.30 MG/DL Estimat Glomerular Filtration Rate > 60 BUN/Creatinine Ratio 14 Glucose Level 144 H 70-105 MG/DL Calcium Level 9.2 8.5-10.1 MG/DL Corrected Calcium 8.5-10.1 MG/DL Magnesium Level 2.7 H 1.8-2.4 MG/DL Total Bilirubin 0.7 0.1-1.0 MG/DL Aspartate Amino Transf (AST/SGOT) 38 H 5-34 U/L Alanine Aminotransferase (ALT/SGPT) 32 0-55 U/L Alkaline Phosphatase 62 40-136 U/L Myoglobin 140.8 H 10.0-92.0 NG/ML Troponin I < 0.028 <0.028 NG/ML Total Protein 7.8 6.4-8.2 GM/DL Albumin 4.6 H 3.2-4.5 GM/DL My Orders Orders - BRI DUCKWORTH MD Cbc With Automated Diff (09/03/18 14:45) Magnesium (09/03/18 14:45) Chest 1 View, Ap/Pa Only (09/03/18 14:45) Ekg Tracing (09/03/18 14:45) Cardiac Profile 1 (09/03/18 14:45) Comprehensive Metabolic Panel (09/03/18 14:45) Myoglobin Serum (09/03/18 14:45) Protime With Inr (09/03/18 14:45) Partial Thromboplastin Time (09/03/18 14:45) O2 (09/03/18 14:45) Monitor-Rhythm Ecg Trace Only (09/03/18 14:45) Lipid Panel (09/04/18 06:00) Aspirin Chewable Tablet (Baby Aspirin Ch (09/03/18 14:45) Saline Lock/Iv-Start (09/03/18 14:45) Clopidogrel Tablet (Plavix Tablet) (09/03/18 16:30) Medications Given in ED Current Medications Medications Dose Ordered Sig/Amie Route Start Time Stop Time Status Last Admin Dose Admin Aspirin 324 mg ONCE ONCE PO 09/03/18 14:45 09/03/18 14:48 DC 09/03/18 14:54 324 MG Vital Signs/I&O 09/03/18 09/03/18 14:45 14:45 Temp 98.5 Pulse 80 Resp 18 B/P (MAP) 132/85 (101) Pulse Ox 97 O2 Delivery Room Air Room Air Blood Pressure Mean: 101 Progress Progress Note : Progress Note Seen and evaluated. IV, labs, EKG and chest x-ray ordered. ASA 324 mg by mouth ordered. No nitro as pain was resolved. Monitor patient. 1515: Dr Coker has seen the patient in the emergency department and is recommending admission. He will see patient in consult. 1610: I did discuss the case with Dr. Champion and she accepts patient for admission, observation status. I rediscussed the case with Dr. Coker. We will give Plavix 300 milligrams by mouth now and he will write for further medication dosing for anticoagulant as needed. Findings concerns discussed with patient who agrees with admission. Admit observation status. Initial ECG Impression Date: Sep 03, 2018 Initial ECG Impression Time: 14:50 Initial ECG Rate: 77 Initial ECG Rhythm: Normal Sinus Initial ECG Impression: Normal Comment Sinus rhythm with left axis deviation. No evidence of ST elevation [place]. Similar to previous of 12/10/17. Interpreted by me. Departure Communication (Admissions) Time/Spoke to Admitting Phy: 16:10 Time/Spoke to Consulting Phy: 15:15 Impression Primary Impression: Chest pain Qualified Codes: R07.9 - Chest pain, unspecified Disposition: ADMITTED INPATIENT Condition: Stable Admissions Decision to Admit Reason: Admit from ER (General) Decision to Admit/Date: Sep 03, 2018 Time/Decision to Admit Time: 15:15 Departure-Patient Inst. Referrals: JANEEN CHAMPION DO (PCP/Family) Primary Care Physician BRI DUCKWORTH MD Sep 03, 2018 16:25
[2018-09-03] MEDS ORDERED: CLOPIDOGREL 300 MG (PLAVIX) TABLET PO ONE (16:30)
--- OUTSIDE RECORDS SUMMARY | 2018-09-03 17:54 | XMS REPORT | Continuity of Care Document ---
Author Author [facility] Organization [facility] Address Unknown Phone Unavailable Allergies Active Description Code Type Severity Reaction Onset Reported/Identified Relationship to Patient Clinical Status Yes LIDOCAINE 99124982 DRUG N/A N/A Yes PENICILLIN 06320227 CLASS N/A N/A Yes PENICILLINS (CLASS) 37984810 CLASS N/A N/A Yes XYLOCAINE EP YOSSI 1##37; [id number] BRANDNAME N/A N/A Yes Penicillins [id number] Drug Allergy Severe Rash 12/10/2017 Yes diclofenac sodium [id number] Drug Allergy Unknown N/A 12/10/2017 Yes lidocaine HCl [id number] Drug Allergy Unknown LOW PULSE 12/10/2017 Medications [...] 789.03 ABDOMINAL PAIN, RIGHT LOWER QUADRANT 04/27/2015 SAHTISH SALOMON MD Ot 722.51 04/27/2015 SATHISH SALOMNO MD Ot 723.0 08/17/2015 Ot V72.84 08/17/2015 [...] 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 04/27/2017 NIKO CHAMPION DOI Ot E78.5 HYPERLIPIDEMIA, UNSPECIFIED 04/27/2017 NIKO CHAMPION DOI Ot G47.33 OBSTRUCTIVE SLEEP APNEA (ADULT) (PEDIATR 04/27/2017 NIKO CHAMPION DOI Ot I12.9 HYPERTENSIVE CHRONIC KIDNEY DISEASE W ST 04/27/2017 JAYCEE MILNER JANEEN Ot I25.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 04/27/2017 NIKO CHAMPION DOI Ot J44.9 CHRONIC OBSTRUCTIVE PULMONARY DISEASE, U 04/27/2017 NIKO CHAMPION DOI Ot N18.9 CHRONIC KIDNEY DISEASE, UNSPECIFIED 04/27/2017 NIKO CHAMPION DOI Ot Z79.899 OTHER TELEVISION NEWS VIDEO EDITOR (CURRENT) DRUG THERAPY 04/27/2017 JANEEN CHAMPION DO [...] JANEEN Ot I25.10 ATHSCL HEART DISEASE OF [place] CORONARY 05/02/2017 CHAMPION DO, JANEEN Ot N18.2 CHRONIC KIDNEY DISEASE, STAGE 2 (MILD) 05/02/2017 CHAMPION DO, JANEEN Ot R07.9 CHEST PAIN, UNSPECIFIED 05/02/2017 CHAMPION DO, JANEEN Ot Z79.02 [facility] (CURRENT) USE OF ANTITHROMBOTI 05/02/2017 CHAMPION DO, JANEEN Ot Z79.84 [facility] (CURRENT) USE OF ORAL HYPOGLYC 05/02/2017 CHAMPION DO, JANEEN Ot Z79.899 OTHER TELEVISION NEWS VIDEO EDITOR (CURRENT) DRUG THERAPY 05/02/2017 CHAMPION DO, JANEEN Ot Z95.5 PRESENCE OF CORONARY ANGIOPLASTY IMPLANT 05/02/2017 JAYCEE DO JANEEN Ot E11.40 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 WITH DIABETIC N 05/02/2017 CHAMPION DO, JANEEN Ot G47.33 OBSTRUCTIVE SLEEP APNEA (ADULT) (PEDIATR 05/02/2017 CHAMPION DO, JANEEN Ot I12.9 HYPERTENSIVE CHRONIC KIDNEY DISEASE W ST 05/02/2017 CHAMPION DO, JANEEN Ot I25.10 ATHSCL HEART DISEASE OF [place] CORONARY 05/02/2017 CHAMPION DO, JANEEN Ot N18.2 CHRONIC KIDNEY DISEASE, STAGE 2 (MILD) 05/02/2017 JAYCEE DO JANEEN Ot R07.9 CHEST PAIN, UNSPECIFIED 05/02/2017 CHAMPION DO JANEEN Ot Z79.02 [facility] (CURRENT) USE OF ANTITHROMBOTI 05/02/2017 CHAMPION DO, JANEEN Ot Z79.84 TELEVISION NEWS VIDEO EDITOR (CURRENT) USE OF ORAL HYPOGLYC 05/02/2017 CHAMPION DO, JANEEN Ot Z79.899 OTHER [facility] (CURRENT) DRUG THERAPY 05/02/2017 CHAMPION DO, JANEEN Ot Z95.5 PRESENCE OF CORONARY ANGIOPLASTY IMPLANT 05/05/2017 CHAMPION DO JANEEN Ot 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 05/05/2017 JAYCEE DO, JANEEN Ot E78.5 HYPERLIPIDEMIA, UNSPECIFIED 05/05/2017 CHAMPION DO, JANEEN Ot G47.33 OBSTRUCTIVE SLEEP APNEA (ADULT) (PEDIATR 05/05/2017 CHAMPION DO, JANEEN Ot I12.9 HYPERTENSIVE CHRONIC KIDNEY DISEASE W ST 05/05/2017 CHAMPION DO, JANEEN Ot I25.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 05/05/2017 CHAMPION DO, JANEEN Ot J44.9 CHRONIC OBSTRUCTIVE PULMONARY DISEASE, U 05/05/2017 CHAMPION DO, JANEEN Ot N18.9 CHRONIC KIDNEY DISEASE, UNSPECIFIED 05/05/2017 CHAMPION DO, JANEEN Ot Z79.899 OTHER [facility] (CURRENT) DRUG THERAPY 05/05/2017 CHAMPION DO, JANEEN Ot Z82.49 FAMILY HX OF I[place]HE[place] HEART DIS AND OTH DI 05/06/2017 CHAMPION DO, JANEEN Ot 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 05/06/2017 CHAMPION DO, JANEEN Ot E78.5 HYPERLIPIDEMIA, UNSPECIFIED 05/06/2017 CHAMPION DO, JANEEN Ot G47.33 OBSTRUCTIVE SLEEP APNEA (ADULT) (PEDIATR 05/06/2017 CHAMPION DO, JANEEN Ot I12.9 HYPERTENSIVE CHRONIC KIDNEY DISEASE W ST 05/06/2017 CHAMPION DO, JANEEN Ot I25.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 05/06/2017 CHAMPION DO, JANEEN Ot J44.9 CHRONIC OBSTRUCTIVE PULMONARY DISEASE, U 05/06/2017 CHAMPION DO, JANEEN Ot N18.9 CHRONIC KIDNEY DISEASE, UNSPECIFIED 05/06/2017 CHAMPION DO, JANEEN Ot Z79.899 OTHER [facility] (CURRENT) DRUG THERAPY 05/06/2017 CHAMPION DO, JANEEN [...] Ot R07.89 OTHER CHEST PAIN 05/21/2017 EDU PERDAZA, M DAVE Ot E11.9 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 [...] ACOSTA Ot I25.10 ATHSCL HEART DISEASE OF [place] CORONARY 09/16/2017 EDU PEDRAZA, Almaz ACOSTA Ot 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 10/27/2017 Almaz SORENSEN MD Ot I25.10 ATHSCL HEART DISEASE OF [place] CORONARY 10/27/2017 EDU PEDRAZA, Almaz ACOSTA Ot 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 11/19/2017 EDU PEDRAZA, Almaz ACOSTA Ot I25.10 ATHSCL HEART DISEASE OF [place] CORONARY 11/19/2017 EDU PEDRAZA, Almaz ACOSTA Ot 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 12/10/2017 Almaz SORENSEN MD Ot I25.10 ATHSCL HEART DISEASE OF [place] CORONARY 12/10/2017 EDU PEDRAZA, Almaz ACOSTA Ot [...] DAVE Ot I25.10 ATHSCL HEART DISEASE OF [place] CORONARY 12/10/2017 EDU PEDRAZA, M DAVE Ot 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 12/10/2017 EDU PEDRAZA, M DAVE Ot I25.10 ATHSCL HEART DISEASE OF [place] CORONARY 12/10/2017 EDU PEDRAZA, M DAVE Ot [...] JANEEN Ot I25.1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[place] COR ART W 12/11/2017 JAYCEE MILNER JANEEN Ot N18.9 CHRONIC KIDNEY DISEASE, UNSPECIFIED 12/11/2017 JAYCEE MILNER JANEEN Ot R07.89 OTHER CHEST PAIN 12/11/2017 JAYCEE MILNER JANEEN Ot Z68.36 BODY MASS INDEX (BMI) 36.0-36.9, ADULT 12/11/2017 JAYCEE MILNER JANEEN Ot Z79.4 TELEVISION NEWS VIDEO EDITOR (CURRENT) USE OF INSULIN 12/11/2017 JAYCEE MILNER [...] JANEEN Ot I25.1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[place] ART W 12/16/2017 CHAMPION DO, JANEEN Ot N18.9 CHRONIC KIDNEY DISEASE, UNSPECIFIED 12/16/2017 CHAMPION DO, JANEEN Ot R07.89 OTHER CHEST PAIN 12/16/2017 CHAMPION DO JANEEN Ot Z68.36 BODY MASS INDEX (BMI) 36.0-36.9, ADULT 12/16/2017 JAYCEE MILNER JANEEN Ot Z79.4 [facility] (CURRENT) USE OF INSULIN 12/16/2017 JAYCEE MILNER [...] Ot E66.9 OBESITY, UNSPECIFIED 06/04/2018 EDU PEDRAZA, Almaz ACOSTA Ot I10 ESSENTIAL (PRIMARY) HYPERTENSION 06/04/2018 EDU PEDRAZA, Almaz ACOSTA Ot I25.10 ATHSCL HEART DISEASE OF [place] CORONARY 06/04/2018 EDU PEDRAZA, Almaz ACOSTA Ot [...] 5-8.5 Urine-Protein Negative Negative Urine-RBC Rare/HPF Urine-Specific [place] >=1.030 1.000-1.030 Urine-WBC Nothing Seen on Microscopic [...] Status Pt. Type Provider Facility Loc./Unit Complaint [id number] 12/26/2017 17:12:32 12/26/2017 23:59:59 CLS Outpatient Nancy Carrero [id number] 08/06/2017 16:44:48 08/06/2017 23:59:59 CLS Outpatient Nancy Carrero [id number] 06/24/2017 16:03:20 06/24/2017 23:59:59 CLS Outpatient Nancy Carrero [id number] 04/20/2016 11:10:47 04/20/2016 23:59:59 CLS Outpatient Tej Hughes [id number] 03/21/2014 20:33:18 03/21/2014 23:59:59 CLS Outpatient Nancy Carrero [id number] 12/06/2013 16:40:35 12/06/2013 23:59:59 CLS Outpatient Walker, Chante [id number] 10/20/2013 15:46:00 10/20/2013 23:59:59 CLS Outpatient Walker, Chante [id number] 09/23/2013 09:06:24 09/23/2013 23:59:59 CLS Outpatient Walker, Chante [id number] 09/16/2013 09:45:27 09/16/2013 23:59:59 CLS Outpatient Walker, Chante [id number] 09/02/2013 09:50:02 09/02/2013 23:59:59 CLS Outpatient Walker, Chante [id number] 08/06/2013 09:20:07 08/06/2013 23:59:59 CLS Outpatient Walker, Chante [id number] 02/18/2017 11:05:00 Document Registration [id number] 02/10/2018 16:10:00 02/10/2018 23:59:00 DIS Outpatient Janeen Champion [id number] 08/06/2018 08:35:00 08/06/2018 23:59:59 CLS Outpatient JANEEN CHAMPION DO [facility] LAB E11.65 [id number] 06/17/2018 09:31:00 06/17/2018 23:59:59 CLS Outpatient FADY SORENSEN MD [facility] LAB HYPERTENSION,CKD [id number] 05/18/2018 08:31:00 05/18/2018 23:59:59 CLS Outpatient Almaz SORENSEN MD [facility] CARD BRADYCARDIA,CAD,HTN, OBESITY [id number] 01/08/2018 13:15:00 01/08/2018 23:59:59 CLS Outpatient FADY SORENSEN MD [facility] RAD HYPERTENSION-BENIGN, CHRONIC KIDNEY DISEASE, DM2 [id number] 12/10/2017 18:20:00 12/11/2017 18:00:00 DIS Outpatient JANEEN CHAMPION DO [facility] CATH CHEST PAIN, CAD [id number] 11/18/2017 08:39:00 11/18/2017 23:59:59 CLS Outpatient Almaz SORENSEN MD [facility] CARD I25.10 CAD [id number] 09/15/2017 12:33:00 09/15/2017 23:59:59 CLS Outpatient Almaz SORENSEN MD [facility] CARD 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 [id number] 08/21/2017 12:30:00 08/21/2017 23:59:59 CLS Preadmit Almaz SORENSEN MD [facility] CARD CHEST TIGHTNESS R07.89 [id number] 06/12/2017 08:01:00 08/20/2017 00:01:00 DIS Outpatient Almaz SORENSEN MD [facility] CARD CHEST TIGHTNESS R07.89 [id number] 06/18/2017 15:30:00 06/18/2017 23:59:59 CLS Preadmit Almaz SORENSEN MD [facility] CARD BRADYCARDIA [id number] 05/15/2017 14:53:00 05/17/2017 00:01:00 DIS Outpatient Almaz SORENSEN MD [facility] CARD CHEST TIGHTNESS R07.89 [id number] 05/13/2017 17:51:00 05/13/2017 18:09:00 DIS Emergency BRI DUCKWORTH MD [facility] ER MID BACK PAIN [id number] 05/12/2017 10:40:00 05/12/2017 23:59:59 CLS Outpatient Almaz SORENSEN MD [facility] CARD BRADYCARDIA [id number] 05/12/2017 10:38:00 05/12/2017 23:59:59 CLS Outpatient Almaz SORENSEN MD [facility] CARD CHEST TIGHTNESS R07.89 [id number] 05/01/2017 16:45:00 05/02/2017 16:45:00 DIS Inpatient JANEEN CHAMPION DO [facility] ICU CHEST PAIN POST RCA STENT [id number] 04/25/2017 20:20:00 04/27/2017 13:26:00 DIS Outpatient CHAMPIONDIANA MILNER JANEEN [facility] CATH CHEST PAIN [id number] 04/23/2017 15:32:00 04/23/2017 23:59:59 CLS Preadmit EDU PEDRAZA, Almaz ACOSTA [facility] CARD CHEST TIGHTNESS [id number] 05/17/2016 09:01:00 05/17/2016 11:35:00 DIS Emergency JORDAN GRANADOS APRN [facility] ER POST NECK SURGERY [id number] 04/13/2015 09:03:00 04/13/2015 23:59:59 CLS Outpatient AIME PEDRAZA, SATHISH Schaffer [facility] RAD RADICULOPATHY [id number] 12/13/2014 06:44:00 12/13/2014 08:44:00 DIS Emergency BRI DUCKWORTH MD [facility] ER RT SIDE ABD PAIN [id number] 01/20/2014 15:48:00 04/20/2014 00:01:00 DIS Outpatient JAYCEE MILNER JANEEN [facility] CARD PALP [id number] 03/17/2014 15:36:00 03/17/2014 23:59:59 CLS Outpatient ANTONIO PEDRAZA, JUNE Valdivia [facility] RAD HEADACHE SINUS PRESSURE [id number] 2018 15:15:00 ACT Inpatient JAYCEE MILNER JANEEN [facility] 4TH CHEST PAIN [id number] 04/03/2018 06:01:00 Document Registration [id number] 04/21/2014 15:30:00 Document Registration [id number] 12/12/2011 07:45:00 Document Registration [id number] 11/13/2011 15:27:00 Document Registration [id number] 10/21/2011 11:58:00 Document Registration [id number] 10/17/2011 10:40:00 Document Registration [id number] 10/16/2011 10:24:00 Document Registration [id number] 09/25/2011 12:21:00 Document Registration [id number] 08/09/2011 20:48:00 Document Registration [id number] 06/01/2011 18:16:00 Document Registration [id number] 12/09/2017 09:28:04 Document Registration [id number] 12/09/2017 09:24:47 Document Registration [id number] 12/04/2017 07:11:29 Document Registration [id number] 08/27/2017 07:54:03 Document Registration [id number] 06/26/2017 15:10:40 Document Registration [id number] 06/26/2017 12:29:00 Document Registration [id number] 06/26/2017 12:25:15 Document Registration [id number] 05/21/2017 07:15:33 Document Registration [id number] 04/05/2017 11:36:38 Document Registration [id number] 04/05/2017 11:24:29 Document Registration
--- NOTE | 2018-09-03 17:55 | NUR ---
Arjun Lamultz admitted to room 425-1, with an admitting diagnosis of CHEST PAIN, on 09/03/18 from ER via W/C, accompanied by .ARJUN DIAZ introduced to surroundings, call light, bed controls, phone, TV, temperature control, lights, meal times, smoking policy, visitor policy, side rail policy, bathrooms and showers. Patient Rights given to patient in the handbook.ARJUN DIAZ verbalizes understanding that [facility] is not responsible for the loss or damage to any personal effects or valuables that are kept in the patients posession during their hospitalization. The following Patient Care Plans were discussed with the PT: Discharge Planning, PAIN CONTROL,IV THERAPY, and TESTS AND PROCEDURES. ARJUN DIAZ verbalizes understanding of Interdisciplinary Patient Education. Patient and/or family were informed about the Rapid Response Team and its purpose.
[2018-09-03] MEDS ORDERED: ONDANSETRON 4 MG/2 ML (SDV) Z0FRAN IV PRN (18:00)
[2018-09-03] MEDS ORDERED: morphine INJ 4 MG/ML 1 ML (VIAL/SYRINGE) IV PRN (18:00)
[2018-09-03] MEDS ORDERED: CATHETER FLUSH 10 ML SYR IV PRN (18:15)
[2018-09-03] MEDS ORDERED: NITROGLYCERIN 0.4 MG SL TABS BTL 25'S SL PRN (18:30)
[2018-09-03] MEDS: NS IV 1000 ML 1,000 ML IV SCH (18:33)
[2018-09-03] MEDS ORDERED: PATIENT MAY USE OWN MEDS, ALL MC SCH (19:00)
[2018-09-03] MEDS ORDERED: HYDROcodone/APAP 10 MG/325 MG (LORTAB) TAB PO PRN (19:00)
[2018-09-03] MEDS ORDERED: EPINEPHRINE 0.3 MG IJ PRN (19:00)
--- NOTE | 2018-09-03 19:20 | History & Physical-Hospitalist ---
History of Present Illness HPI/Chief Complaint CC: Chest pain HPI: This is a 63yoWM clinic patient of mine with h/o CAD previous stent and DM insulin dependent with malignant HTN who presented to the ER after experiencing severe chest pain when duck hunting. Pt was pain free on admit to ER but due to risk factors he was in need of observation and Cardiology evaluation. All home meds were restarted. Source: patient Exam Limitations: no limitations Date Seen 09/03/18 Time Seen by a Provider: 17:30 Attending Physician Yulia Cruz DO PCP Yulia Cruz DO Referring Physician Date of Admission Sep 03, 2018 at 15:15 Home Medications & Allergies Home Medications Reviewed patient Home Medication Reconciliation performed by pharmacy medication reconciliations hvac residential service technician and/or nursing. Patients Allergies have been reviewed. Allergies Allergies Coded Allergies Penicillins (Verified Allergy, Severe, Rash, 12/10/17) diclofenac sodium (Verified Allergy, Unknown, 12/10/17) lidocaine HCl (Verified Allergy, Unknown, LOW PULSE, 12/10/17) Past Obypgyl-Vapzxd-Vrrqbj Hx Past Med/Social Hx: Reviewed Nursing Past Med/Soc Hx, Reviewed and Corrections made Patient Social History Marrital Status: Employed/Student: retired Alcohol Use: Occasionally Uses Number of Drinks Today: AA Alcohol Beverage of Choice: Beer Recreational Drug Use: No Smoking Status: Former Smoker Type Used: Cigarettes 2nd Hand Smoke Exposure: No Physical Abuse Screen: No Sexual Abuse: No Recent Foreign Travel: No Contact w/other who traveled: No Recent Hopitalizations: Yes Recent Infectious Disease Expo: No Immunizations Up To Date Tetanus Booster (TDap): Unknown Pediatric: No Date of Pneumonia Vaccine: May 18, 2015 Date of Influenza Vaccine: Jun 18, 2018 Seasonal Allergies Seasonal Allergies: No Past Medical History Surgeries: Coronary Stent, Gallbladder, Orthopedic, Tonsillectomy, Vasectomy Respiratory: Sleep Apnea Currently Using CPAP: Yes (at home) Currently Using BIPAP: No Cardiac: Coronary Artery Disease, High Cholesterol, Hypertension Neurological: Neuropathy Genitourinary: Renal Failure Gastrointestinal: Gastroesophageal Reflux, Ulcer Musculoskeletal: Degenerate Disk Disease, Arthritis Endocrine: Diabetes, Insulin dep HEENT: Cataract History of Blood Disorders: No Adverse Reaction to Blood [place]: No Family History Reviewed Nursing Family Hx Asthma 19 FATHER, Onset:Unknown Colon cancer maternal grandmother, Onset:Unknown Dementia 19 FATHER, Onset:60 years & older FH: congestive heart failure maternal grandfather, Onset:Unknown FHx: colon cancer Myocardial infarction 19 MOTHER, Onset:60 years & older Diabetes Review of Systems Constitutional: see HPI EENTM: no symptoms reported Respiratory: no symptoms reported Cardiovascular: chest pain Gastrointestinal: no symptoms reported Genitourinary: no symptoms reported Musculoskeletal: no symptoms reported Skin: no symptoms reported All Other Systems Reviewed Negative Unless Noted: Yes Physical Exam Physical Exam Vital Signs Vital Signs - First Documented 09/03/18 09/03/18 14:45 21:38 Temp 98.5 Pulse 80 Resp 18 B/P (MAP) 132/85 (101) Pulse Ox 97 O2 Delivery Room Air FiO2 21 Capillary Refill : Less Than 3 Seconds Height, Weight, BMI Height: 5'10.00" Weight: 254lbs. 12.2oz. 115.772331fa; 36.4 BMI Method:Stated General Appearance: No Apparent Distress, WD/WN, Chronically ill, Obese Eyes: Bilateral Eye Normal Inspection, Bilateral Eye PERRL HEENT: PERRL/EOMI, TMs Normal, Normal ENT Inspection, Pharynx Normal Neck: Full Range of Motion, Normal Inspection, Non Tender, Supple, Carotid Bruit Respiratory: Chest Non Tender, Lungs Clear, Normal Breath Sounds, No Accessory Muscle Use, No Respiratory Distress Cardiovascular: Regular Rate, Rhythm, No Edema, No Gallop, No JVD, No Murmur, Normal Peripheral Pulses Gastrointestinal: Normal Bowel Sounds, No Organomegaly, No Pulsatile Mass, Non Tender, Soft Back: Normal Inspection, No CVA Tenderness, No Vertebral Tenderness Extremity: Normal Capillary Refill, Normal Inspection, Normal Range of Motion, Non Tender, No Calf Tenderness, No Pedal Edema Neurologic/Psychiatric: Alert, Oriented x3, No Motor/Sensory Deficits, Normal Mood/Affect Skin: Normal Color, Warm/Dry Lymphatic: No Adenopathy Results Results/Procedures Labs Laboratory Tests 09/03/18 14:50 Patient resulted labs reviewed. Assessment/Plan Admission Diagnosis Assessment: Chest pain Known CAD w/stent DM HTN CRI CHELSEA Plan: Rule out ACS Admission Status: Observation Diagnosis/Problems Diagnosis/Problems (1) Chest pain Status: Acute Qualifiers: Chest pain type: unspecified Qualified Codes: R07.9 - Chest pain, unspecified (2) CHEL[place] (obstructive sleep apnea) Status: Chronic (3) Obesity Status: Chronic (4) Hypertension Status: Chronic Qualifiers: Hypertension type: essential hypertension Qualified Codes: I10 - Essential (primary) hypertension (5) Hyperlipidemia Status: Chronic (6) CAD (coronary artery disease) Status: Chronic Qualifiers: Coronary Disease-Associated Artery/Lesion type: [place] artery [place] vs. transplanted heart: [place] heart Associated angina: with stable angina Qualified Codes: I25.118 - Atherosclerotic heart disease of [place] coronary artery with other forms of angina pectoris (7) Diabetes mellitus Status: Chronic Clinical Quality Measures AMI/AHF: ASA po Prior to arrival: Yes DVT/VTE Risk/Contraindication: Risk Factor Score Per Nursin RFS Level Per Nursing on Admit: 3=High YULIA CRUZ DO Sep 03, 2018 19:20
[2018-09-03 20:00] VITALS: BP 140/79
[2018-09-03] MEDS ORDERED: EPINEPHrine INJECTION 1 MG/ML AMP IM PRN (20:30)
[2018-09-03] MEDS: inSUlin ASPART (NovoLOG) 1 UNIT/0.01 ML (CHARGE PER UNIT) SC SCH (20:43)
[2018-09-03] MEDS: GABAPENTIN 100 MG (NEURONTIN) CAP PO SCH (20:43)
[2018-09-03] MEDS ORDERED: ATORVASTATIN 40 MG (LIPITOR) TABLET PO SCH (21:00)
[2018-09-03] MEDS ORDERED: VITAMIN D2 50,000 UNITS (1.25 MG) CAP PO SCH (21:00)
[2018-09-03] MEDS ORDERED: lisINopril 20 MG (PRINIVIL) TABLET PO SCH (21:00)
[2018-09-03] MEDS ORDERED: doxAzosin 4 MG (CARDURA) TAB PO SCH (21:00)
[2018-09-03 21:18] LABS: MYOGLOBIN SERUM 91.8 NG/ML (10.0-92.0)
[2018-09-03 21:38] VITALS: BP 140/79
[2018-09-03] MEDS ORDERED: RT-ALBUTEROL SULF 2.5 MG/3 ML PRE-MIX VIAL INH PRN (22:00)
[2018-09-04] VITALS: BP 113/66
[2018-09-04 04:10] VITALS: BP 108/68
[2018-09-04] MEDS: inSUlin ASPART (NovoLOG) 1 UNIT/0.01 ML (CHARGE PER UNIT) SC SCH ×2 (05:41→12:04)
[2018-09-04] MEDS: NS IV 1000 ML 1,000 ML IV SCH (05:42)
[2018-09-04 06:18] LABS: BASOPHILS % (AUTO) 0 % (0-10); EOSINOPHILS # (AUTO) 0.1 10^3/uL (0.0-0.3); EOSINOPHILS % (AUTO) 2 % (0-10); HEMATOCRIT 39 % (40-54); HEMOGLOBIN 13.1 G/DL (13.3-17.7); LYMPHOCYTES # (AUTO) 1.4 X 10^3 (1.0-4.0); LYMPHOCYTES % (AUTO) 21 % (12-44); MEAN CORPUSCULAR HEMOGLOBIN 30 PG (25-34); MEAN CORPUSCULAR HGB CONC 34 G/DL (32-36); MEAN CORPUSCULAR VOLUME 88 FL (80-99); MEAN PLATELET VOLUME 9.5 FL (7.4-10.4); MONOCYTES # (AUTO) 0.6 X 10^3 (0.0-1.0); MONOCYTES % (AUTO) 8 % (0-12); NEUTROPHILS # (AUTO) 4.7 X 10^3 (1.8-7.8); NEUTROPHILS % (AUTO) 69 % (42-75); PLATELET COUNT 222 10^3/uL (130-400); RED BLOOD COUNT 4.39 10^6/uL (4.35-5.85); RED CELL DISTRIBUTION WIDTH 14.4 % (10.0-14.5); WHITE BLOOD COUNT 6.8 10^3/uL (4.3-11.0)
[2018-09-04 06:36] LABS: ALANINE AMINOTRANSFERASE 26 U/L (0-55); ALKALINE PHOSPHATASE 58 U/L (40-136); BILIRUBIN,TOTAL 1.1 MG/DL (0.1-1.0); BUN/CREATININE RATIO 18; CALCIUM 8.7 MG/DL (8.5-10.1); CARBON DIOXIDE 21 MMOL/L (21-32); CHLORIDE 107 MMOL/L (98-107); CHOLESTEROL 90 MG/DL (< 200); CREATININE SERUM 0.83 MG/DL (0.60-1.30); GFR ESTIMATED > 60; GLUCOSE 187 MG/DL (70-105); HDL CHOLESTEROL 37 MG/DL (40-60); SODIUM 139 MMOL/L (135-145); TOTAL PROTEIN 6.1 GM/DL (6.4-8.2); TRIGLYCERIDES 68 MG/DL (<150); VLDL CHOLESTEROL 14 MG/DL (5-40)
[2018-09-04 08:00] VITALS: BP 125/70
[2018-09-04] MEDS ORDERED: KCL 10 MEQ TAB (MICRO K) PO SCH (08:00)
[2018-09-04] MEDS ORDERED: ASPIRIN E.C. 81 MG (ECOTRIN) TAB PO SCH ×2 (09:00)
[2018-09-04] MEDS ORDERED: FAMOTIDINE 20 MG (PEPCID) TABLET PO SCH (09:00)
[2018-09-04] MEDS ORDERED: RANITIDINE HCL 75 MG PO SCH (09:00)
[2018-09-04] MEDS ORDERED: LORATADINE (CLARITIN) 10 MG TAB PO SCH (09:00)
[2018-09-04] MEDS ORDERED: FLUTICASONE NASAL SPRAY (FLONASE) 16 GM BTL NS SCH (09:00)
[2018-09-04] MEDS ORDERED: NON-FORMULARY MEDICATION 1 EA EA (Spironolactone 50 MG) PO SCH (09:00)
[2018-09-04] MEDS ORDERED: NON-FORMULARY MEDICATION 1 EA EA (Amlodipine Besylate 10 MG) PO SCH (09:00)
[2018-09-04] MEDS ORDERED: amLODIPine 10 MG (NORVASC) TAB PO SCH (09:00)
[2018-09-04] MEDS ORDERED: [UNRECOGNIZED DRUG - REMARK] PO SCH (09:00)
[2018-09-04] MEDS ORDERED: FEXOFENADINE 180 MG (ALLEGRA) TAB (NON-FORMULARY) PO SCH (09:00)
[2018-09-04] MEDS ORDERED: TORSEMIDE 10 MG TAB PO SCH (09:00)
[2018-09-04] MEDS ORDERED: SPIRONOLACTONE 50 MG TABLET PO SCH (09:00)
[2018-09-04] MEDS ORDERED: NON-FORMULARY MEDICATION 1 EA EA (Torsemide 10 MG) PO SCH (09:00)
--- NOTE | 2018-09-04 10:05 | Discharge Summary-Hospitalist ---
Diagnosis/Chief Complaint Date of Admission Sep 03, 2018 at 15:15 Date of Discharge Admission Diagnosis Assessment: Chest pain Known CAD w/stent DM HTN CRI CHELSEA Plan: Rule out ACS Discharge Diagnosis (1) Normal stress echocardiogram Status: Acute (2) Chest pain Status: Resolved (3) CHELSEA (obstructive sleep apnea) Status: Chronic (4) Obesity Status: Chronic (5) Hypertension Status: Chronic (6) Hyperlipidemia Status: Chronic (7) CAD (coronary artery disease) Status: Chronic (8) Diabetes mellitus Status: Chronic Discharge Summary Discharge Physical Exam Allergies: Coded Allergies: Penicillins (Verified Allergy, Severe, Rash, 12/10/17) diclofenac sodium (Verified Allergy, Unknown, 12/10/17) lidocaine HCl (Verified Allergy, Unknown, LOW PULSE, 12/10/17) Vitals & I&Os Vital Signs Date Time Temp Pulse Resp B/P (MAP) Pulse Ox O2 Delivery O2 Flow Rate FiO2 09/04/18 16:30 78 20 147/79 95 Room Air 09/04/18 12:00 99.5 09/03/18 21:38 21 General Appearance: No Apparent Distress, WD/WN Cardiovascular: Regular Rate, Rhythm, No Edema, No Gallop, No JVD, No Murmur, Normal Peripheral Pulses Neurologic/Psychiatric: Alert, Oriented x3, No Motor/Sensory Deficits, Normal Mood/Affect Hospital Course Was the Problem List Reviewed?: Yes Hospital course: Patient had an uneventful hospital course he was admitted for observation and monitored with serial troponins. All troponins were negative. Cardiology evaluated him perform stress echocardiogram which revealed no reversible ischemia. Due to bradycardia metoprolol was discontinued at discharge. Labs (last 24 hrs) Laboratory Tests 09/04/18 05:09: Glucometer 204H 09/04/18 05:45: White Blood Count 6.8, Red Blood Count 4.39, Hemoglobin 13.1L, Hematocrit 39L, Mean Corpuscular Volume 88, Mean Corpuscular Hemoglobin 30, Mean Corpuscular Hemoglobin Concent 34, Red Cell Distribution Width 14.4, Platelet Count 222, Mean Platelet Volume 9.5, Neutrophils (%) (Auto) 69, Lymphocytes (%) (Auto) 21, Monocytes (%) (Auto) 8, Eosinophils (%) (Auto) 2, Basophils (%) (Auto) 0, Neutrophils # (Auto) 4.7, Lymphocytes # (Auto) 1.4, Monocytes # (Auto) 0.6, Eosinophils # (Auto) 0.1, Basophils # (Auto) 0.0, Sodium Level 139, Potassium Level 4.0, Chloride Level 107, Carbon Dioxide Level 21, Anion Gap 11, Blood Urea Nitrogen 15, Creatinine 0.83, Estimat Glomerular Filtration Rate > 60, BUN/ Creatinine Ratio 18, Glucose Level 187H, Calcium Level 8.7, Corrected Calcium 8.7, Total Bilirubin 1.1H, Aspartate Amino Transf (AST/SGOT) 17, Alanine Aminotransferase (ALT/SGPT) 26, Alkaline Phosphatase 58, Total Protein 6.1L, Albumin 4.0, Triglycerides Level 68, Cholesterol Level 90, LDL Cholesterol Direct 42, VLDL Cholesterol 14, HDL Cholesterol 37L 09/04/18 10:40: Glucometer 195H Patient resulted labs reviewed. Pending Labs Discussion & Recommendations Discharge Planning: <30 minutes discharge planning Discharge Home Medications: Active Scripts Active Reported Acid Hot Pipe Gauger (RANITIDINE) (Ranitidine HCl) 75 Mg Tablet 75 Mg PO DAILY Gabapentin 100 Mg Capsule 100 Mg PO BID Torsemide 10 Mg Tablet 10 Mg PO DAILY Lisinopril 20 Mg Tablet 20 Mg PO HS Spironolactone 50 Mg Tablet 50 Mg PO DAILY Potassium Chloride 10 Meq Tablet.er 10 Meq PO DAILY Zoey Allergy (Fexofenadine HCl) 60 Mg Tablet 60 Mg PO DAILY Levemir Flextouch (Insulin Detemir) 100 Unit/1 Ml Insuln.pen 45 Units SC HS Novolog Flexpen (Insulin Aspart) 300 Units/3 Ml Solution 10 Units SQ TIDAC Epipen (Epinephrine) 0.3 Mg/0.3 Ml Auto.injct 0.3 Mg IJ UD PRN Hydrocodon-Acetaminophn 10-325 (Hydrocodone/Acetaminophen) 1 Each Tablet 1 Tab PO TID PRN Fluticasone Propionate 16 Gm [place].susp 2 Sprays NS DAILY Amlodipine Besylate 10 Mg Tablet 10 Mg PO DAILY Vitamin D2 (Ergocalciferol (Vitamin D2)) 50,000 Unit Capsule 50,000 Unit PO MOTH @2100 Doxazosin Mesylate 4 Mg Tablet 4 Mg PO HS Atorvastatin Calcium 40 Mg Tablet 40 Mg PO HS Tizanidine HCl 4 Mg Tablet 2 Mg PO BID PRN TAKES 1/2 (4MG) TABLET Aspirin EC (Aspirin) 81 Mg Tablet.dr 81 Mg PO DAILY Nitroglycerin 0.4 Mg Tab.subl 0.4 Mg SL UD PRN Tizanidine HCl 4 Mg Tablet 4 Mg PO HS Instructions to patient/family Please see electronic discharge instructions given to patient. Clinical Quality Measures AMI/AHF: ASA po Prior to arrival: Yes DVT/VTE Risk/Contraindication: Risk Factor Score Per Nursin RFS Level Per Nursing on Admit: 3=High Problem Qualifiers (1) Chest pain: Chest pain type: unspecified Qualified Codes: R07.9 - Chest pain, unspecified (2) Hypertension: Hypertension type: essential hypertension Qualified Codes: I10 - Essential ( primary) hypertension (3) CAD (coronary artery disease): Coronary Disease-Associated Artery/Lesion type: [place] artery [place] vs. transplanted heart: [place] heart Associated angina: with stable angina Qualified Codes: I25.118 - Atherosclerotic heart disease of [place] coronary artery with other forms of angina pectoris JANEEN CHAMPION DO Sep 04, 2018 10:05
[2018-09-04] MEDS: GABAPENTIN 100 MG (NEURONTIN) CAP PO SCH (10:23)
--- NOTE | 2018-09-04 10:30 | NUR ---
TO STRESS TEST PER W/C.
[2018-09-04] MEDS ORDERED: NS (IVPB) 0 ML ONE (10:43)
[2018-09-04] MEDS ORDERED: DOBUTamine DRIP 250 ML IV SCH (11:00)
--- NOTE | 2018-09-04 11:38 | NUR ---
Dr Coker in room. time out performed, consent signed. Dobutamine started at 1120 @10mic/kg; 1125 increased to 20mic/kg; 1128 increased to 30mic/kg; 1132 increased to 40mc/kg. 1135 dobutamine ALEKSANDR'd.
[2018-09-04 12:00] VITALS: BP 147/79
--- NOTE | 2018-09-04 13:10 | NUR ---
RETURNED FROM STRESS TEST PER W/C
--- NOTE | 2018-09-04 13:18 | Cardiology Progress Note ---
Cardiology SOAP Progress Note Subjective: No further chest pain. Objective: I&O/Vital Signs Weight (Pounds): 254 Weight (Ounces): 12.2 Weight (Calculated Kilograms): 115.329009 Constitutional: appears stated age, AAO x 3; No apparent distress; well- developed, well-nourished Respiratory: No accessory muscle use, No respiratory distress, No chest tender , No chest expansion is symmetric; chest is bilaterally symmetric; No lungs clear to percussion; lungs clear to auscultation; No crackles, No rhonchi, No rales, No stridor, No wheezing, No pleural rub, No other Cardiovascular: regular rate-rhythm; No irregularly irregular, No extra beats, No parasternal heave is noted, No JVD, No edema, No bradycardia, No tachycardia , No point of maximal impulse, No cardiac thrills are palpable; S1 and S2; No gallop/S3, No gallop/S4, No diastolic murmur, No systolic murmur, No friction rub, No click, No other Gastrointestional: No tender, No soft, No round, No distended, No pulsatile mass, No organomegaly, No guarding, No rebound, No tenderness, No hernia, No mass, No audible bowel sounds, No abnormal bowel sounds, No abdominal bruits, No spleenomegaly, No other Extremities: No normal range of motion, No non-tender, No normal inspection, No pedal edema, No calf tenderness, No normal capillary refill, No pelvis stable , No calf tenderness, No inflammation, No pedal edema, No slow capillary refill , No swelling, No other, No abrasion, No clubbing, No cyanosis, No ecchymosis, No laceration, No no lower extremity edema bilateral, No significant edema, No tenderness, No wound Neurologic/Psychiatric: no motor/sensory deficits, alert, normal mood/affect, oriented x 3, power is 5/5 both on sides Skin: No normal color, No warm/dry, No cyanosis, No cool, No diaphoresis, No damp, No ecchymosis, No jaundice, No mottled, No pallor, No rash, No tattoos/ piercings, No ulcerations, No rash on exposed areas, No ulcerations on exposed areas, No other Results/Procedures: Labs A/P: Assessment/Dx: Prolonged episode of chest pain, Hypertension, CAD, Hyperlipidemia, Plan: Chest pain: Acute coronary syndrome ruled out with negative serial troponin. Dobutamine stress echocardiogram was negative for ischemia. Echocardiogram showed normal LV function. Patient can be discharged to follow-up as an outpatient. For now no Plavix, however I educated the patient that if he has recurrent chest pain we may consider dual anti- platelet therapy He complained previously of bradycardia and chest tightness usually at the same time. we had requested echocardiogram and nuclear stress testing. However before he could get a nuclear stress test he came with a prolonged episode of chest pain to the hospital. Coronary angiography was performed by Dr. Yoon. A 70 percent stenosis was seen in the mid RCA which was treated with a drug-eluting stent Xience Alpine 4.0x15mm. This was done on 04/26/2017. echocardiogram done on 05/12/2017 showed normal LV function. No significant valvular heart disease. Aorta is mildly dilated. Follow-up imaging will be recommended in 6 months. He presented again with mild discomfort and had a nuclear stress test on 05/02/2017 which did not show any perfusion abnormalities. A Holter monitor was done on 05/12/2017 which shows sinus rhythm with variable ventricular rate. Minimum heart rate of 41 bpm and maximum heart rate of 109 BPM. Lowest heart rate of 41 bpm was early in the morning when the patient was sleeping. There were 11,377 PACs and 606 PVCs. No other arrhythmias were noted. Symptoms of chest discomfort was correlated with sinus rhythm and PACs. CAD: Stable. Continue aspirin and Plavix. Importance of Plavix was emphasized. Patient will also continue statin. Coronary angiography on 2017 shows normal stent in the RCA. Patent left main, LAD and left circumflex artery. LVEDP 16 mmHg. Bradycardia: Improved heart rate. Previously Lowest heart rate of 41 BPM was noted during sleep during Holter monitor. Due to bradycardia he is not on a beta joaquim. Frequent PACs and PVCs. However heart rate has improved significantly and we will start low-dose of beta joaquim. We'll start Toprol- XL 12.5 mg daily. Hypertension: Salt restriction was recommended. Continue lisinopril. Continue torsemide, Aldactone and potassium supplementation, we had discontinued all 3 medications after his last coronary angiography on 12/11/2017. Hyperlipidemia: On 02/25/2017 the patient's total cholesterol was 149, triglyceride was 85, HDL 35, LDL 97. Based on the current ACC/AHA guidelines his risk of stroke and CAD is 25 percent at 10 years. Therefore it is recommended that he starts aspirin, and high intensity statin. Previously I started him on Lipitor 40 mg daily. He will require lipid profile in the near future. History of Dilated aorta: Previously Aortic root diameter 4.1 cm. repeat echocardiogram in November 2017 shows an aortic root of 3.8 cm which is within normal limits. Repeat in May 2018. Patient has diabetes. History of Paroxysmal atrial tachycardia. Event monitor done in April 2017 showed a brief episode of PAT at 155 BPM. Patient will continue current medical therapy. However if he continues to have recurrent palpitations I will recommend implantable loop recorder for atrial fibrillation surveillance. Left leg discomfort: This could be claudication equivalent or secondary to his vertebral disc problem. However the patient does have diabetes and CAD therefore is at risk for PAD. AGGIE were negative. Unlikely severe PAD. Thank you for your consultation. Please call me if you have any questions. Miriam Coker MD, FACP, FACC, FSCAI, FHRS, CCDS Interventional Cardiology Cardiac Electrophysiology Vascular Medicine and Endovascular Interventions Clinical Quality Measures AMI/AHF: ASA po Prior to arrival: Yes Almza COKER MD Sep 04, 2018 13:18
--- NOTE | 2018-09-04 14:00 | NUR ---
DENIES CHEST PAIN. C/O OF BACK PAIN FREQ. SKIN W/D. RESP. REGULAR.
[2018-09-04 15:35] VITALS: BP 147/79
[2018-09-04 16:30] VITALS: BP 147/79
--- NOTE | 2018-09-04 16:30 | NUR ---
DENTON DIAZ demonstrates understanding of discharge instructions and accurately returns instructions upon questioning. Copy of Post-Discharge Instructions given to PT. DENTON DIAZ is able to manage continuing needs after discharge. Patients belongings returned to PT. Patient discharged from [facility]- on 09/04/18 at 1630. DENTON DIAZ left floor via W/C, accompanied by STAFF AND SELF PER AUTO.
== END 2018-09-04 14:18 | disposition home or self-care (01) ==
LOC: EDUNIT# 14:43 → ER 14:44 → 4TH 15:15 → UNDOADMOB 15:15 → 4TH 17:45
PROVIDERS: ADMIT Internal Medicine; ATTEND Internal Medicine
DX: R07.9 Chest pain, unspecified (principal); G47.33 Obstructive sleep apnea (adult) (pediatric); E66.9 Obesity, unspecified; I12.9 Hypertensive chronic kidney disease with stage 1 through stage 4 chronic kidney disease, or unspecified chronic kidney disease; N18.9 Chronic kidney disease, unspecified; E78.5 Hyperlipidemia, unspecified; I25.118 Atherosclerotic heart disease of native coronary artery with other forms of angina pectoris; E11.9 Type 2 diabetes mellitus without complications; E78.00 Pure hypercholesterolemia, unspecified; R00.1 Bradycardia, unspecified; M79.662 Pain in left lower leg; Z88.0 Allergy status to penicillin; Z95.5 Presence of coronary angioplasty implant and graft; Z79.4 Long term (current) use of insulin; Z79.899 Other long term (current) drug therapy; Z79.82 Long term (current) use of aspirin; Z87.891 Personal history of nicotine dependence
CPT/HCPCS: 36415; 71045; 80053; 80061; 82962; 83735; 83874; 84484; 85025; 85610; 85730; 93005; 93041; 93306; 93351; 94760

== ENCOUNTER 2018-09-16 05:35 | Outpatient (CLI) | payer BC ==
[~2018-09-16] VITALS: Ht 177.8 cm; Wt 115.6 kg
[~2018-09-16 05:35] MED LIST changes: -AMLO10TA6 PO; +AMLO10TA7 PO; +FEXO-14 PO; +GABA-486 PO; +LISI-552 PO; +METO-387 PO; +RANI-514 PO
[2018-09-16] MEDS ORDERED: CHOL500049 PO (11:32)
== END 2018-09-16 11:48 | disposition home or self-care (01) ==
LOC: PREOP 05:35
PROVIDERS: ATTEND Orthopaedic Surgery Orthopaedic Surgery of the Spine
DX: Z01.818 Encounter for other preprocedural examination (principal)

== ENCOUNTER 2018-10-12 08:58 | Outpatient (CLI) | payer BC ==
[~2018-10-12] VITALS: Ht 177.8 cm; Wt 115.2 kg
[~2018-10-12 08:58] MED LIST changes: +CHOL500049 PO
== END 2018-10-12 10:44 ==
LOC: PREOP 08:58
PROVIDERS: ATTEND Orthopaedic Surgery Orthopaedic Surgery of the Spine
DX: Z01.818 Encounter for other preprocedural examination (principal)

== ENCOUNTER 2018-10-19 05:52 | Day surgery (SDC) | payer BC ==
--- NOTE | 2018-09-16 14:24 | NUR ---
MEDICATIONS WERE REVIEWED IN PREOP. I COMPARED WHAT WAS REVIEWED WITH THE EXT MED HX AND THE NOTES FROM HIS PREVIOUS ADMISSION WHEN I COMPLETED HIS MED REC EARLIER THIS MONTH. THE METOPROLOL WAS STOPPED ON DISCHARGE FROM THE LAST VISIT.
[2018-10-19] VITALS (7 sets, daily range): BP systolic 122–141; BP diastolic 72–89
[~2018-10-19] VITALS: Ht 177.8 cm; Wt 118.0 kg
[2018-10-19] MEDS ORDERED: FAMOTIDINE 20MG/2ML IV (PEPCID) IV ONE (06:15)
[2018-10-19] MEDS ORDERED: ONDANSETRON 4 MG/2 ML (SDV) Z0FRAN IV PRN (06:30)
[2018-10-19] MEDS ORDERED: METOCLOPRAMIDE INJ 10 MG/2 ML (REGLAN) IV PRN (06:30)
[2018-10-19] MEDS ORDERED: ACETAMINOPHEN 325 MG TABLET PO PRN (06:30)
[2018-10-19] MEDS ORDERED: BUP/EPI 0.5% 1:200,000 (SENSORCAINE) 30 ML VIAL ONE (06:36)
[2018-10-19] MEDS ORDERED: CLINDAMYCIN 600 MG/50 ML IVPB 50 ML IV ONE ×2 (06:36→06:45)
[2018-10-19] MEDS ORDERED: BACITRACIN OINTMENT 28 GM TUBE ONE (06:37)
[2018-10-19] MEDS ORDERED: VANCOMYCIN 1000 MG/VIAL ONE (06:37)
[2018-10-19] MEDS ORDERED: FAMOTIDINE 20MG/2ML IV (PEPCID) ONE (06:37)
[2018-10-19] MEDS ORDERED: GENTAMICIN 40 MG/ML 2 ML INJ SDV ONE (06:37)
[2018-10-19] MEDS ORDERED: MIDAZOLAM 2 MG/2 ML (VERSED) VIAL ONE (06:41)
[2018-10-19] MEDS ORDERED: fentaNYL INJECTION 100 MCG/2 ML AMP ONE (06:41)
[2018-10-19] MEDS: LACTATED RINGERS 1,000 ML IV PRN ×2 (07:04→10:00)
[2018-10-19] MEDS ORDERED: ONDANSETRON 4 MG/2 ML (SDV) Z0FRAN IVP PRN ×2 (07:30→09:00)
[2018-10-19] MEDS ORDERED: MEPERIDINE (DEMEROL) INJ 50 MG/ML IVP ONE (07:30)
[2018-10-19] MEDS ORDERED: morphine INJ 10 MG/ML 1ML (SYR OR VIAL) IVP ONE ×2 (07:30→09:00)
[2018-10-19] MEDS ORDERED: SEVOFLURANE (ULTANE) 15 ML INHAL SOLN ONE ×5 (07:47→08:49)
[2018-10-19] MEDS ORDERED: proPOfol 200 MG/20 ML (DIPRIVAN) VIAL IV ONE (07:47)
[2018-10-19] MEDS ORDERED: SUCCINYLCHOLINE INJ 100 MG/5 ML SYR ONE (07:47)
[2018-10-19] MEDS ORDERED: ONDANSETRON 4 MG/2 ML (SDV) Z0FRAN ONE (07:47)
[2018-10-19] MEDS ORDERED: ROCURONIUM 10 MG/ML 5 ML SYRINGE IV ONE (07:47)
[2018-10-19] MEDS ORDERED: LACTATED RINGERS 0 ML IV ONE (07:47)
--- NOTE | 2018-10-19 08:47 | Progress Note-Post Operative ---
Post-Operative Progess Note Surgeon (s)/Training Engineer (s) Surgeon SATHISH SALOMON MD Training Engineer: PADDY Kumar Pre-Operative Diagnosis RADICULOPATHY Post-Operative Diagnosis Same Procedure & Operative Findings Date of Procedure 10/19/18 Procedure Performed/Findings Placement of SCS paddle lead, via laminectomy with IPG placement Anesthesia Type GETA Estimated Blood Loss Estimated blood loss (mL): Minimal Specimens/Packing Specimens Removed None SATHISH SALOMON MD Oct 19, 2018 08:47
--- NOTE | 2018-10-19 09:33 | Anesthesia-General Post-Op ---
General Patient Condition Mental Status/LOC: Same as Preop Cardiovascular: Satisfactory Nausea/Vomiting: Absent Respiratory: Satisfactory Pain: Controlled Complications: Absent Post Op Complications Complications None Follow Up Care/Instructions Patient Instructions None needed. Anesthesia/Patient Condition Patient Condition Patient is doing well, no complaints, stable vital signs, no apparent adverse anesthesia problems. No complications reported per nursing. EMILEE RODAS CRNA Oct 19, 2018 09:33
--- NOTE | 2018-10-19 09:40 | NUR ---
DENTON SANDERSULTZ admitted to room 404-1, with an admitting diagnosis of PLACEMENT OF SPINAL CORD STIMULATOR, on 10/19/18 from [facility] via W/C, accompanied by STAFF.DENTON DIAZ introduced to surroundings, call light, bed controls, phone, TV, temperature control, lights, meal times, smoking policy, visitor policy, side rail policy, bathrooms and showers. Patient Rights given to patient in the handbook.DENTON DIAZ verbalizes understanding that [facility] is not responsible for the loss or damage to any personal effects or valuables that are kept in the patients posession during their hospitalization. The following Patient Care Plans were discussed with the PT: Discharge Planning, PAIN CONTROL,IV THERAPY, and TESTS AND PROCEDURES. DENTON DIAZ verbalizes understanding of Interdisciplinary Patient Education. Patient and/or family were informed about the Rapid Response Team and its purpose.
--- NOTE | 2018-10-19 09:40 | NUR ---
FROM [facility] PER BED TO ROOM 404. ALERT AND COOPERATIVE. SKIN W/D. RESP. REGULAR. DEEP BREATHING ENCOURAGED. DRESSING TO MIDDLE BACK AND LEFT SIDE BACK WITH GAUZE AND OP-SITE'S CLEAR. NO DRAINAGE NOTED ON DRESSINGS. C/O OF PAIN IN MIDDLE INC. AREA. ICE APPLIED TO AREA. MEDICATED FOR C/O OF PAIN. IV TO LEFT AC CLEAR WITH IV FLUIDS INFUSING WELL. NO C/O OF NUMBNESS OR WEAKNESS IN EXT.
[2018-10-19] MEDS: morphine INJ 10 MG/ML 1ML (SYR OR VIAL) IVP PRN ×2 (10:00→15:52)
--- NOTE | 2018-10-19 10:17 | Consultation ---
History of Present Illness History of Present Illness Patient Consulted On(samy/time) 10/19/18 10:17 Date Seen by Provider: Oct 19, 2018 Time Seen by Provider: 10:15 History of Present Illness CC: s/p uncomplicated pain stimulator with laminectomy POD # [address] Boucher HPI: This is a 63-year-old white male clinic patient of [facility] with a history of diabetes, obstructive sleep apnea, hypertension and spinal disease who presents after a pain stimulator placement by Dr. Boucher uncomplicated. Currently he is sore from surgery but not having any chest pain or shortness of breath. He recently had a stress test in August 2018 due to a chest pain episode during [employer] adventure. is at the bedside. Checked meds and labs. Allergies and Home Medications Allergies Coded Allergies: Penicillins (Verified Allergy, Severe, Rash, 09/16/18) diclofenac sodium (Verified Allergy, Mild, DIZZINESS, 09/16/18) methocarbamol (Verified Allergy, Mild, RASH, 09/16/18) Home Medications Amlodipine Besylate 10 Mg Tablet, 10 MG PO DAILY, (Reported) Aspirin 81 Mg Tablet.dr, 81 MG PO DAILY, (Reported) Atorvastatin Calcium 40 Mg Tablet, 40 MG PO HS, (Reported) Cholecalciferol (Vitamin D3) 50,000 Unit Capsule, 50,000 UNIT PO 2X WEEK, ( Reported) Doxazosin Mesylate 4 Mg Tablet, 4 MG PO HS, (Reported) Epinephrine 0.3 Mg/0.3 Ml Auto.injct, 0.3 MG IJ UD PRN for ALLERGIC REACTION, ( Reported) Fexofenadine HCl 60 Mg Tablet, 60 MG PO DAILY, (Reported) Fluticasone Propionate 16 Gm [place].susp, 2 SPRAYS NS DAILY, (Reported) Gabapentin 100 Mg Capsule, 100 MG PO BID, (Reported) Hydrocodone/Acetaminophen 1 Each Tablet, 1 TAB PO TID PRN for PAIN-MODERATE, ( Reported) Insulin Aspart 300 Units/3 Ml Solution, 10 UNITS SQ TIDAC, (Reported) Insulin Detemir 100 Unit/1 Ml Insuln.pen, 75 UNITS SC HS, (Reported) Lisinopril 20 Mg Tablet, 20 MG PO HS, (Reported) Nitroglycerin 0.4 Mg Tab.subl, 0.4 MG SL UD PRN for CHEST PAIN, (Reported) Potassium Chloride 10 Meq Tablet.er, 10 MEQ PO DAILY, (Reported) Ranitidine HCl 75 Mg Tablet, 75 MG PO DAILY, (Reported) Spironolactone 50 Mg Tablet, 50 MG PO DAILY, (Reported) Tizanidine HCl 4 Mg Tablet, 4 MG PO HS, (Reported) Tizanidine HCl 4 Mg Tablet, 2 MG PO BID PRN for HEADACHE, (Reported) TAKES 1/2 (4MG) TABLET Torsemide 10 Mg Tablet, 10 MG PO DAILY, (Reported) Patient Home Medication List Home Medication List Reviewed: Yes Past Idhycfz-Jxpzak-Vakzdr Hx Past Med/Social Hx: Reviewed Nursing Past Med/Soc Hx, Reviewed and Corrections made Patient Social History Alcohol Use: Occasionally Uses Number of Drinks Today: AA Alcohol Beverage of Choice: Beer Recreational Drug Use: No Smoking Status: Former Smoker Type Used: Cigarettes 2nd Hand Smoke Exposure: No Recent Foreign Travel: No Contact w/Someone Who Travel: No Recent Infectious Disease Expo: No Recent Hopitalizations: No Immunizations Up To Date Tetanus Booster (TDap): Unknown PED Vaccines UTD: No Date of Pneumonia Vaccine: May 26, 2017 Date of Influenza Vaccine: May 25, 2018 Seasonal Allergies Seasonal Allergies: Yes Past Medical History Surgeries: Yes (cervical disc fusion, left shoulder surgery X2, CATARACTS) Coronary Stent, Gallbladder, Orthopedic, Tonsillectomy, Vasectomy Respiratory: Yes Sleep Apnea Currently Using CPAP: Yes (at home) Currently Using BIPAP: No Cardiac: Yes (-2016) Coronary Artery Disease, High Cholesterol, Hypertension Neurological: No Neuropathy Sexually Transmitted Disease: No HIV/AIDS: No 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) Renal Failure, Polycystic Kidney Disease Gastrointestinal: Yes Gastroesophageal Reflux, Ulcer Musculoskeletal: Yes Degenerate Disk Disease, Arthritis, Chronic Back Pain Endocrine: Yes Diabetes, Insulin dep HEENT: Yes (GLASSES) Cataract Loss of Vision: Bilateral Hearing Impairment: Denies Cancer: No Psychosocial: No Integumentary: No Blood Disorders: No Adverse Reaction/Blood Tranf: No (N/A) Family Medical History Asthma 19 FATHER, Onset:Unknown Colon cancer maternal grandmother, Onset:Unknown Dementia 19 FATHER, Onset:60 years & older FH: congestive heart failure maternal grandfather, Onset:Unknown FHx: colon cancer Myocardial infarction 19 MOTHER, Onset:60 years & older Diabetes Review of Systems-General Constitutional: see HPI EENTM: no symptoms reported Respiratory: no symptoms reported Cardiovascular: no symptoms reported Gastrointestinal: no symptoms reported Genitourinary: no symptoms reported Musculoskeletal: back pain Skin: no symptoms reported Psychiatric/Neurological: No Symptoms Reported All Other Systems Reviewed Negative Unless Noted: Yes Physical Exam-General Problems Physical Exam Vital Signs Vital Signs - First Documented 10/19/18 06:30 Temp 97.9 Pulse 69 Resp 18 B/P (MAP) 141/89 (106) Pulse Ox 97 O2 Delivery Room Air Capillary Refill : General Appearance: WD/WN, no apparent distress HEENT: PERRL/EOMI, normal ENT inspection, TMs normal, pharynx normal Neck: non-tender, full range of motion, supple, normal inspection Respiratory: chest non-tender, lungs clear, normal breath sounds, no respiratory distress, no accessory muscle use Cardiovascular: normal peripheral pulses, regular rate, rhythm, no edema, no gallop, no JVD, no murmur Gastrointestinal: normal bowel sounds, non tender, soft, no organomegaly, no pulsatile mass Back: decreased range of motion Extremities: normal range of motion, non-tender, normal inspection, no pedal edema, no calf tenderness, normal capillary refill, pelvis stable Neurologic/Psychiatric: captain's assistant II-XII nml as tested, no motor/sensory deficits, alert, normal mood/affect, oriented x 3 Skin: normal color, warm/dry, cyanosis, cool, diaphoresis Lymphatic: no adenopathy Assessment/Plan Assessment/Plan Admission Diagnosis/Plan Assessment: s/p pain stimulator placement and laminectomy POD # 0 Normal stress echocardiogram 09/05 obtained due to chest pain during hunting activity CHELSEA (obstructive sleep apnea) Obesity Hypertension Hyperlipidemia CAD (coronary artery disease) Diabetes mellitus Plan: Monitor observation due to cardiac risk factors Monitor sugar Admission Status: Observation Problems/Diagonsis (1) Cervical stenosis of spinal canal Status: Resolved (2) Radiculopathy Status: Resolved Qualifiers: Qualified Codes: M54.12 - Radiculopathy, cervical region (3) Normal stress echocardiogram Status: Chronic (4) CHELSEA (obstructive sleep apnea) Status: Chronic (5) Hypertension Status: Chronic Qualifiers: Qualified Codes: I10 - Essential (primary) hypertension (6) Obesity Status: Chronic Qualifiers: (7) Hyperlipidemia Status: Chronic Qualifiers: Qualified Codes: E78.2 - Mixed hyperlipidemia (8) CAD (coronary artery disease) Status: Chronic Qualifiers: Qualified Codes: I25.118 - Atherosclerotic heart disease of [place] coronary artery with other forms of angina pectoris (9) Diabetes mellitus Status: Chronic Qualifiers: Qualified Codes: E11.59 - Type 2 diabetes mellitus with other circulatory complications; 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
[2018-10-19] MEDS ORDERED: HYDROcodone/APAP 5 MG/325 MG (LORTAB) TAB ONE (10:43)
[2018-10-19] MEDS: HYDROcodone/APAP 5 MG/325 MG (LORTAB) TAB PO PRN (10:46)
[2018-10-19] MEDS: MULTIVIT W/MINERALS TAB (THERAGRAN M) PO SCH (11:21)
[2018-10-19] MEDS: inSUlin ASPART (NovoLOG) 1 UNIT/0.01 ML (CHARGE PER UNIT) SC SCH ×3 (11:35→20:28)
--- NOTE | 2018-10-19 12:30 | NUR ---
UP IN ROOM. VOIDED 300 CC CLEAR YELLOW URINE WITHOUT DIFFICULTY.
--- NOTE | 2018-10-19 13:00 | NUR ---
LINH CHECKS CONT. ORDERED.
--- NOTE | 2018-10-19 13:06 | Diagnostic Imaging Report ---
INDICATION: Back pain. FINDINGS: A spinal stimulator overlies the lower thoracic spine. IMPRESSION: Intraoperative fluoroscopy as described. Dictated by: Dictated on workstation # [id number]
[2018-10-19] MEDS: NS IV 1000 ML 1,000 ML IV SCH ×2 (14:09→20:19)
[2018-10-19] MEDS: CLINDAMYCIN 900 MG/50 ML IVPB 50 ML IV SCH ×2 (14:09→22:28)
--- NOTE | 2018-10-19 15:05 | NUR ---
Pastoral care visit, provided support and prayer.
[2018-10-19] MEDS ORDERED: NITROGLYCERIN 0.4 MG SL TABS BTL 25'S SL PRN (15:30)
[2018-10-19] MEDS ORDERED: PATIENT MAY USE OWN MEDS, ALL MC SCH (15:45)
[2018-10-19] MEDS ORDERED: GABAPENTIN 100 MG (NEURONTIN) CAP PO SCH (21:00)
[2018-10-19] MEDS ORDERED: lisINopril 20 MG (PRINIVIL) TABLET PO SCH (21:00)
[2018-10-19] MEDS ORDERED: doxAzosin 4 MG (CARDURA) TAB PO SCH (21:00)
[2018-10-19] MEDS ORDERED: inSUlin DETERMIR 1 UNIT/0.01 ML (LEVEMIR) CHARGE PER UNIT SQ SCH (21:00)
[2018-10-19] MEDS ORDERED: ATORVASTATIN 40 MG (LIPITOR) TABLET PO SCH (21:00)
[2018-10-20] VITALS: BP 94/58
[2018-10-20 04:43] VITALS: BP 130/67
[2018-10-20] MEDS: MULTIVIT W/MINERALS TAB (THERAGRAN M) PO SCH (06:02)
[2018-10-20] MEDS: inSUlin ASPART (NovoLOG) 1 UNIT/0.01 ML (CHARGE PER UNIT) SC SCH (06:02)
[2018-10-20] MEDS: CLINDAMYCIN 900 MG/50 ML IVPB 50 ML IV SCH (06:02)
[2018-10-20] MEDS: HYDROcodone/APAP 5 MG/325 MG (LORTAB) TAB PO PRN (06:42)
--- NOTE | 2018-10-20 06:44 | Progress Note (SOAP) ---
Subjective Date Seen by a Provider: Oct 20, 2018 Time Seen by a Provider: 06:43 Subjective/Events-last exam Pain ok, feels good, no complaints. Objective Exam Vital Signs Date Time Temp Pulse Resp B/P (MAP) Pulse Ox O2 Delivery O2 Flow Rate FiO2 10/20/18 04:43 98.2 75 18 130/67 (88) 96 Room Air 10/20/18 00:00 97.5 59 18 94/58 (70) 97 NIV CPAP 10/19/18 21:00 Room Air 10/19/18 19:35 97.6 77 16 122/77 (92) 95 Room Air 10/19/18 16:17 98.1 89 18 138/82 (100) 95 Room Air 10/19/18 10:25 88 18 128/86 (100) 94 Room Air 10/19/18 10:10 98.8 78 18 136/89 (105) 94 Room Air 10/19/18 09:55 98.0 72 18 128/88 (101) 94 Room Air 10/19/18 09:40 97.8 71 16 123/72 (89) 92 Room Air I & O 10/20/18 07:00 Intake Total 4590 ml Output Total 700 ml Balance 3890 ml Capillary Refill : General Appearance: No Apparent Distress Respiratory: No Accessory Muscle Use, No Respiratory Distress Cardiovascular: Normal Peripheral Pulses Gastrointestinal: soft Extremity: Non Tender, No Calf Tenderness Neurologic/Psychiatric: Alert, Oriented x3, No Motor/Sensory Deficits Results Lab Laboratory Tests 10/19/18 11:28: Glucometer 228H 10/19/18 16:16: Glucometer 215H 10/19/18 20:22: Glucometer 192H 10/20/18 05:42: Glucometer 182H Assessment/Plan Assessment/Plan Assess & Plan/Chief Complaint Lumbar Stenosis, lumbar Radiculopathy Plan: S/P SCS, d/c home Clinical Quality Measures DVT/VTE Risk/Contraindication: Risk Factor Score Per Nursin RFS Level Per Nursing on Admit: 3=High SATHISH SALOMON MD Oct 20, 2018 06:44
[2018-10-20] MEDS ORDERED: ACHD5005 PO (06:45)
[2018-10-20] MEDS ORDERED: KCL 10 MEQ TAB (MICRO K) PO SCH (07:00)
[2018-10-20 07:43] VITALS: BP 136/76
[2018-10-20] MEDS ORDERED: TORSEMIDE 20 MG (DEMADEX) TAB PO SCH (09:00)
[2018-10-20] MEDS ORDERED: TORSEMIDE 10 MG TABLET PO SCH (09:00)
[2018-10-20] MEDS ORDERED: FLUTICASONE NASAL SPRAY (FLONASE) 16 GM BTL NS SCH (09:00)
[2018-10-20] MEDS ORDERED: amLODIPine 10 MG (NORVASC) TAB PO SCH (09:00)
[2018-10-20] MEDS ORDERED: SPIRONOLACTONE 25 MG (ALDACTONE) TAB PO SCH (09:00)
[2018-10-20] MEDS ORDERED: FAMOTIDINE 20 MG (PEPCID) TABLET PO SCH (09:00)
[2018-10-20] MEDS ORDERED: SPIRONOLACTONE 50 MG TABLET PO SCH (09:00)
[2018-10-20] MEDS ORDERED: LORATADINE (CLARITIN) 10 MG TAB PO SCH (09:00)
--- NOTE | 2018-10-20 09:23 | Discharge Summary ---
Diagnosis/Chief Complaint Date of Admission Oct 19, 2018 at 05:52 Date of Discharge Discharge Date: Oct 20, 2018 Discharge Diagnosis Assessment: s/p pain stimulator placement and lumbar laminectomy POD # 1 uncomplicated Normal stress echocardiogram 09/05 obtained due to chest pain during hunting activity CHELSEA (obstructive sleep apnea) Obesity Hypertension Hyperlipidemia CAD (coronary artery disease) Diabetes mellitus Reason Hospital Visit CC: s/p uncomplicated pain stimulator with laminectomy POD # [address] Boucher HPI: This is a 63-year-old white male clinic patient of [facility] with a history of diabetes, obstructive sleep apnea, hypertension and spinal disease who presents after a pain stimulator placement by Dr. Boucher uncomplicated. Currently he is sore from surgery but not having any chest pain or shortness of breath. He recently had a stress test in August 2018 due to a chest pain episode during hunting adventure. is at the bedside. Checked meds and labs. Discharge Summary Discharge Physical Examination Allergies: Coded Allergies: Penicillins (Verified Allergy, Severe, Rash, 09/16/18) diclofenac sodium (Verified Allergy, Mild, DIZZINESS, 09/16/18) methocarbamol (Verified Allergy, Mild, RASH, 09/16/18) Vitals & I&Os Vital Signs Date Time Temp Pulse Resp B/P (MAP) Pulse Ox O2 Delivery O2 Flow Rate FiO2 10/20/18 09:30 10/20/18 08:00 Room Air 10/20/18 07:43 98.3 78 18 95 Hospital Course Was the Problem List Reviewed?: Yes Hospital course: Pt had an uneventful hospital course, he was admitted following a lumbar laminectomy and pain stimulator placement in an uncomplicated manner by Dr. Boucher. Blood pressures remained stable, and did not have any anginal symptoms, and blood sugars remained stable. Home medications were all restarted and although he was bloated and had not had a bowel movement and slightly constipated he will begin taking Miralax at home. He was discharged in improved status. Labs (last 24 hrs) Laboratory Tests 10/19/18 06:20: Glucometer 173H 10/19/18 11:28: Glucometer 228H 10/19/18 16:16: Glucometer 215H 10/19/18 20:22: Glucometer 192H 10/20/18 05:42: Glucometer 182H Microbiology 10/19/18 MRSA Screen - Final, Complete MRSA not isolated Pending Labs Microbiology Date/Time Source Procedure Growth Status 10/19/18 06:30 Nasal MRSA Screen - Final MRSA not isolated Complete Laboratory Tests 10/19/18 06:20: Glucometer 173 10/19/18 11:28: Glucometer 228 10/19/18 16:16: Glucometer 215 10/19/18 20:22: Glucometer 192 10/20/18 05:42: Glucometer 182 Discharge Home Medications: Active Scripts Active Hydrocodone/Acetaminophen 5/325mg Tablet (Acetaminophen/Hydrocodone Bitart) 1 Tab Tab 1-2 Tab PO Q4H PRN 7 Days Reported Vitamin D (Cholecalciferol (Vitamin D3)) 50,000 Unit Capsule 50,000 Unit PO 2X WEEK Acid Go Cart Mechanic (RANITIDINE) (Ranitidine HCl) 75 Mg Tablet 75 Mg PO DAILY Gabapentin 100 Mg Capsule 100 Mg PO BID Torsemide 10 Mg Tablet 10 Mg PO DAILY Lisinopril 20 Mg Tablet 20 Mg PO HS Spironolactone 50 Mg Tablet 50 Mg PO DAILY Potassium Chloride 10 Meq Tablet.er 10 Meq PO DAILY Zoey Allergy (Fexofenadine HCl) 60 Mg Tablet 60 Mg PO DAILY Levemir Flextouch (Insulin Detemir) 100 Unit/1 Ml Insuln.pen 75 Units SC HS Novolog Flexpen (Insulin Aspart) 300 Units/3 Ml Solution 10 Units SQ TIDAC Epipen (Epinephrine) 0.3 Mg/0.3 Ml Auto.injct 0.3 Mg IJ UD PRN Fluticasone Propionate 16 Gm [place].susp 2 Sprays NS DAILY Amlodipine Besylate 10 Mg Tablet 10 Mg PO DAILY Doxazosin Mesylate 4 Mg Tablet 4 Mg PO HS Atorvastatin Calcium 40 Mg Tablet 40 Mg PO HS Tizanidine HCl 4 Mg Tablet 2 Mg PO BID PRN TAKES 1/2 (4MG) TABLET Aspirin EC (Aspirin) 81 Mg Tablet.dr 81 Mg PO DAILY Nitroglycerin 0.4 Mg Tab.subl 0.4 Mg SL UD PRN Tizanidine HCl 4 Mg Tablet 4 Mg PO HS Instructions to patient/family Please see electronic discharge instructions given to patient. Diagnosis/Problems Diagnosis/Problems (1) Cervical stenosis of spinal canal Status: Resolved Resolution Date/Time: 10/19/18 @ 10:29 (2) Radiculopathy Status: Resolved Qualifiers: Qualified Codes: M54.12 - Radiculopathy, cervical region Resolution Date/Time: 10/19/18 @ 10:29 (3) Normal stress echocardiogram Status: Chronic (4) CHELSEA (obstructive sleep apnea) Status: Chronic (5) Hypertension Status: Chronic Qualifiers: Qualified Codes: I10 - Essential (primary) hypertension (6) Obesity Status: Chronic Qualifiers: (7) Hyperlipidemia Status: Chronic Qualifiers: Qualified Codes: E78.2 - Mixed hyperlipidemia (8) CAD (coronary artery disease) Status: Chronic Qualifiers: Qualified Codes: I25.118 - Atherosclerotic heart disease of [place] coronary artery with other forms of angina pectoris (9) Diabetes mellitus Status: Chronic Qualifiers: Qualified Codes: E11.59 - Type 2 diabetes mellitus with other circulatory complications; Z79.4 - long-term (current) use of insulin Clinical Quality Measures DVT/VTE Risk/Contraindication: Risk Factor Score Per Nursin RFS Level Per Nursing on Admit: 3=High JANEEN CHAMPION DO Oct 20, 2018 09:23
--- NOTE | 2018-10-20 09:43 | Physical Therapy Evaluation ---
PT Evaluation-General Medical Diagnosis Admission Date Oct 19, 2018 at 05:52 Medical Diagnosis: Thoracic Laminectomy, Pain Stimulator Onset Date: Oct 19, 2018 Therapy Diagnosis Therapy Diagnosis: decreased mobility Height/Weight Height (Feet): 5 Height (Inches): 10.00 Weight (Pounds): 260 Weight (Ounces): 2.0 Precautions Precautions/Isolations: Standard Precautions Weight Bear Status Right Lower Extremity: Right Weight Bearing/Tolerated Left Lower Extremity: Left Weight Bearing/Tolerated Referral Physician: Jabari Sainz Reason for Referral: Evaluation/Treatment Medical History Pertinent Medical History: Arthritis, CAD, DM, GERD, HTN, Neuropathy Additional Medical History L shld surgery x2, Cervical disc fusion, DDD Current History Thoracic Laminectomy and pain stimulator Reviewed History: Yes Social History Home: Single Level Current Living Status: Spouse Entry Into Home: Level Entry PT Steps Inside Home: 2 Prior/Core FIM Prior Level of Function Therapy Code Descriptions/Definitions Functional Kane Measure: 0=Not Assessed/NA 4=Minimal Assistance 1=Total Assistance 5=Supervision or Setup 2=Maximal Assistance 6=Modified Kane 3=Moderate Assistance 7=Complete Kane Therapy Quality Codes: 6 Independent with activity with or without an assistive device 5 Patient requires set up or clean up by helper. Patient completes activity by themselves 4 Supervision or touching assist (CGA). [place] provide cues , steadying assist 3 The helper provides less than half the effort to complete the activity 2 The helper provides more than half the effort to complete the activity 1 Dependent. The helper does all the effort to complete an activity 7 Patient refused to complete or attempt activity 9 The patient did not perform the activity before the current illness or injury 88 Not attempted due to Medical conditions or safety concerns Functional Abilities and Goals: Independent: Patient completed the activities by him/herself, with or without an assistive device, with no assistance from a helper. Needed Some Help: Patient needed partial assistance from another person to complete activities. Dependent: A helper completed the activities for the patient. Unknown: Not Applicable: Bed Mobility: 7 Transfers (B,C,W/C) (FIM): 7 Gait: 7 Stairs: 7 Indoor Mobility (Ambulation): Independent Stairs: Independent Prior Devices Use: None PT Evaluation-Current Subjective Pt in recliner and agrees to PT. Pt reports that he did have a hydrocodone so that is helping with his pain, but the stimulator seems to already be working. Pt also reports that he will be dismissed this morning for home. Pain Numeric Pain Scale: 3 Location Body Site: Abdomen Comment: Pt reports some pain around his abdomen he reports cysts that could cause Pt/Family Goals Pt to return home. Objective Patient Orientation: Person, Place, Situation, Normal For Age ROM/Strength ROM Lower Extremities NT Strength Lower Extremities NT Neuromuscular (Tone, Coordination, Reflexes) NT Sensory Vision: Wears Glasses Hearing: Functional Transfers Therapy Code Descriptions/Definitions Functional [place] Measure: 0=Not Assessed/NA 4=Minimal Assistance 1=Total Assistance 5=Supervision or Setup 2=Maximal Assistance 6=Modified Kane 3=Moderate Assistance 7=Complete [place] Transfers (B, C, W/C) (FIM): 7 Scootin Sit to/from Stand: 7 Gait Mode of Locomotion: Walk Anticipated Mode of Locomotion: Walk Gait (FIM): 7 Distance (FIM): 3=150 ft Distance: 600' Gait Level of Assist: 7 Gait Persons Needed: 1 Gait Assistive Device: None Stairs Stairs (FIM): 2 #of Steps: 4 Level of Assist: 5 Reciprocal pattern, no rail use Balance Sitting Static: Good Sitting Dynamic: Good Standing Static: Good Standing Dynamic: Good Assessment/Needs Pt was able to perform transfers indep. Pt amb 600' with no AD, SPT there for observation. Pt performed steps ascending and descending 4 steps x1 with SBA. Pt felt comfortable with stairs after practicing. Pt returned to room and is in recliner with all needs met. Pt has no concerns or c/o with returning home today. Rehab Potential: Good Post Rehab Potential-Barriers: co-morbidities PT Plan Problem List Problem List: Activity Tolerance Treatment/Plan Treatment Plan: Discontinue PT Treatment Plan: Other Treatment Duration: Oct 20, 2018 Frequency: Estimated Hrs Per Day: Other Patient and/or Family Agrees t: Yes Safety Risks/Education Patient Education: Gait Training, Transfer Techniques, Steps, Correct Positioning, Safety Issues Teaching Recipient: Patient Teaching Methods: Demonstration, Discussion Discharge Recommendations Therapy D/C Recommendations: Home w/ Family Support Time/GCodes Time In: 834 Time Out: 842 Total Billed Treatment Time: 8 Total Billed Treatment 1 visit EVL 8 min ARNOLD MCGARRY PT Oct 20, 2018 09:43
--- NOTE | 2018-10-20 13:28 | OPERATIVE REPORT ---
DATE OF SERVICE: 10/19/2018 PREOPERATIVE DIAGNOSIS: Chronic lumbago, lumbar radiculopathy. POSTOPERATIVE DIAGNOSIS: Chronic lumbago, lumbar radiculopathy. PROCEDURES PERFORMED: T10-11 laminectomy for placement of paddle electrode and left-sided IPG battery placement for spinal cord stimulating with complex programming. DATE AND TIME OF SURGERY: Please see anesthesia record. IMPLANTS USED: Medtronic intellis battery, Medtronic 2 x 8 paddle electrode. SURGEON: Sathish Boucher MD SQL CONSULTANT: ANTHONY Kumar. ROLE OF INSPECTOR BOILER: Aid in retraction of the procedure, aid in implantation, instrumentation and closure. ANESTHESIA: General endotracheal. ESTIMATED BLOOD LOSS: Minimal. INTRAVENOUS FLUIDS: Please see anesthesia record. ANTIBIOTICS: Ancef. COMPLICATIONS: None. INDICATIONS FOR PROCEDURE: The patient is a 63-year-old male with progressive and intolerable back and lower extremity pain, positive stimulator trial, desires permanent placement. DESCRIPTION OF PROCEDURE: The patient was taken to the preoperative holding area and brought back to the operative suite. After adequate induction of general anesthesia and preoperative antibiotics, placement of spinal monitor for neuromonitoring, carried out. A standard neuromonitoring carried out by means of real time continuous high quality bidirectional mode, audio and visual communication to both the cath lab radiology technician and myself by Dr. Taylor. SSEP, EMG and TOF's were stable throughout the procedure. The patient was carefully rolled prone on to the OR table with chest rolls. Sterile prep and drape to posterior thoracic and lumbar spine. Localization of the T10-11 level was performed. Small laminotomy was created. Paddle lead was placed into a midline position, assured to be in the appropriate level according to the Medtronic solar manufacturer's representative anchored into place. Strain loops were created and was tunneled to the left-sided posterior hip region where he desired his battery to be placed. He was connected to the battery. System was functioning well and was interrogated and complex programing was carried out. Wounds were irrigated, closed in layers. The patient transferred to recovery room in stable condition, tolerated procedure well with stable spinal monitoring. Job ID: [id number] DocumentID: [id number] Dictated Date: 10/19/2018 08:49:49 Professor Of Vegetable Science Date: 10/19/2018 15:06:12 Dictated By: SATHISH BOUCHER MD [facility]
[2018-10-22] MEDS ORDERED: VITAMIN D2 50,000 UNITS (1.25 MG) CAP PO SCH (09:00)
== END 2018-10-20 09:30 | disposition home or self-care (01) ==
LOC: 4TH 05:52 → SDC 05:52 → UNDOADMIN 05:52 → 4TH 05:52 → SURG 05:53 → 4TH 09:30 → EDSTATUS 12:00 → 4TH 18:28 → SDC 10-20 09:30 → UNDODISIN 10-20 09:30
PROVIDERS: ATTEND Orthopaedic Surgery Orthopaedic Surgery of the Spine
DX: M48.061 Spinal stenosis, lumbar region without neurogenic claudication (principal); M54.16 Radiculopathy, lumbar region; M46.1 Sacroiliitis, not elsewhere classified; I12.9 Hypertensive chronic kidney disease with stage 1 through stage 4 chronic kidney disease, or unspecified chronic kidney disease; E11.22 Type 2 diabetes mellitus with diabetic chronic kidney disease; N18.2 Chronic kidney disease, stage 2 (mild); E11.40 Type 2 diabetes mellitus with diabetic neuropathy, unspecified; I25.119 Atherosclerotic heart disease of native coronary artery with unspecified angina pectoris; K21.9 Gastro-esophageal reflux disease without esophagitis; G47.33 Obstructive sleep apnea (adult) (pediatric); Q61.3 Polycystic kidney, unspecified; Z79.899 Other long term (current) drug therapy; Z88.0 Allergy status to penicillin; Z95.5 Presence of coronary angioplasty implant and graft; Z79.4 Long term (current) use of insulin; Z79.82 Long term (current) use of aspirin
CPT/HCPCS: 82962; 87081; 94664

== ENCOUNTER → 2018-11-30 | Outpatient (CLI) | payer BC ==
[~2018-11-30] MED LIST changes: +ACHD5005 PO
[2018-11-30 08:43] LABS: BASOPHILS % (AUTO) 0 % (0-10); EOSINOPHILS # (AUTO) 0.1 10^3/uL (0.0-0.3); EOSINOPHILS % (AUTO) 2 % (0-10); HEMATOCRIT 40 % (40-54); HEMOGLOBIN 13.7 G/DL (13.3-17.7); LYMPHOCYTES # (AUTO) 1.5 X 10^3 (1.0-4.0); LYMPHOCYTES % (AUTO) 23 % (12-44); MEAN CORPUSCULAR HEMOGLOBIN 30 PG (25-34); MEAN CORPUSCULAR HGB CONC 34 G/DL (32-36); MEAN CORPUSCULAR VOLUME 88 FL (80-99); MEAN PLATELET VOLUME 8.9 FL (7.4-10.4); MONOCYTES # (AUTO) 0.6 X 10^3 (0.0-1.0); MONOCYTES % (AUTO) 9 % (0-12); NEUTROPHILS # (AUTO) 4.4 X 10^3 (1.8-7.8); NEUTROPHILS % (AUTO) 67 % (42-75); PLATELET COUNT 237 10^3/uL (130-400); WHITE BLOOD COUNT 6.5 10^3/uL (4.3-11.0)
[2018-11-30 09:08] LABS: ALANINE AMINOTRANSFERASE 27 U/L (0-55); ALBUMIN 4.3 GM/DL (3.2-4.5); ALKALINE PHOSPHATASE 69 U/L (40-136); BILIRUBIN,TOTAL 0.5 MG/DL (0.1-1.0); BUN/CREATININE RATIO 17; CALCIUM 8.9 MG/DL (8.5-10.1); CARBON DIOXIDE 22 MMOL/L (21-32); CHLORIDE 110 MMOL/L (98-107); CHOLESTEROL 97 MG/DL (< 200); CREATININE SERUM 0.82 MG/DL (0.60-1.30); GFR ESTIMATED > 60; GLUCOSE 210 MG/DL (70-105); HDL CHOLESTEROL 41 MG/DL (40-60); SODIUM 141 MMOL/L (135-145); TOTAL PROTEIN 6.5 GM/DL (6.4-8.2); TRIGLYCERIDES 50 MG/DL (<150); VLDL CHOLESTEROL 10 MG/DL (5-40)
== END ==
LOC: LAB 08:29
PROVIDERS: ATTEND Internal Medicine
DX: Z00.00 Encounter for general adult medical examination without abnormal findings (principal); E11.65 Type 2 diabetes mellitus with hyperglycemia; E78.00 Pure hypercholesterolemia, unspecified; E78.1 Pure hyperglyceridemia
CPT/HCPCS: 36415; 80053; 80061; 83036; 84443; 85025

== ENCOUNTER → 2018-11-30 | Outpatient (CLI) | payer BC ==
--- NOTE | 2018-11-30 12:05 | Diagnostic Imaging Report ---
PROCEDURE: US Renal Bilateral. TECHNIQUE: Multiple real-time grayscale images were obtained over the kidneys in various projections bilaterally. INDICATION: Renal cysts. COMPARISON: Correlation is made with prior ultrasound from 01/08/2018. FINDINGS: Right kidney measures 12.8 x 6.3 x 7.4 cm and the left knee measures 16.0 x 8.4 x 7.8 cm. Right kidney demonstrates normal cortical thickness and echogenicity. No calculi or hydronephrosis is seen. Left kidney does contain numerous cysts. A cyst in the mid left kidney measures approximately 8.7 x 5.7 cm compared with 8.2 x 5.2 cm. Cyst in the lower pole measures approximately 10.1 x 8.2 cm compared with 8.6 x 7.5 cm. A third simple appearing cyst measures 8.0 x 4.4 x 5.2 cm. No solid renal mass is detected. Bilateral ureteral jets are visualized. IMPRESSION: Mild increase in size of simple-appearing left renal cysts when compared with prior study from 01/08/2018. No solid renal mass, calculi or hydronephrosis is detected. Dictated by: Dictated on workstation # [id number]
== END ==
LOC: RAD 08:27
PROVIDERS: ATTEND Internal Medicine Nephrology
DX: N28.1 Cyst of kidney, acquired (principal)
CPT/HCPCS: 76770

== ENCOUNTER 2018-12-09 13:15 | Day surgery (SDC) | payer BC ==
[2018-12-09] VITALS (15 sets, daily range): BP systolic 103–145; BP diastolic 61–89
[~2018-12-09] VITALS: Ht 177.8 cm; Wt 1.4 kg
--- NOTE | 2018-12-09 12:35 | NUR ---
Report taken from TWILA Mendieta from the ICU that took report from [facility] nurse who was shipping the patient to [facility]. This RN will assume care of this patient when he arrives to this floor via EMS.
--- NOTE | 2018-12-09 13:15 | NUR ---
DENTON DIAZ admitted to room , with an admitting diagnosis of UNSTABLE ANGINA, on 12/09/2018 from [facility] via [facility], accompanied by [facility] STAFF. DENTON DIAZ introduced to surroundings, call light, bed controls, phone, TV, temperature control, lights, meal times, smoking policy, visitor policy, side rail policy, bathrooms and showers. Patient Rights given to patient in the handbook. DENTON DIAZ verbalizes understanding that [facility] is not responsible for the loss or damage to any personal effects or valuables that are kept in the patients posession during their hospitalization. DENTON DIAZ verbalizes understanding of Interdisciplinary Patient Education. Patient and/or family were informed about the Rapid Response Team and its purpose.
--- NOTE | 2018-12-09 14:55 | History & Physicial-Cardiolgy ---
HPI-Cardiology Cardiology Consultation: Date of Consultation 12/09/18 Date of Admission Attending Physician Almaz Coker MD Admitting Physician Yulia Cruz DO Consulting Physician Almaz COKER MD HPI: Time Seen by a Provider: 17:00 Chief Complaint: Prolonged episode of chest pain This is a 61-year-old gentleman who has been transferred for prolonged episode of chest pain. The patient has history of diabetes, hypertension, he denies hypercholesterolemia and smoking. He has family history of premature coronary artery disease. His mother had an RI at an early age. He complains of bradycardia and chest tightness usually at the same time. we had requested echocardiogram and nuclear stress testing. However before he could get a nuclear stress test he came with a prolonged episode of chest pain to the hospital. Coronary angiography was performed by Dr. Yoon. A 70 percent stenosis was seen in the mid RCA which was treated with a drug-eluting stent. This was done on 04/26/2017. He presented again with mild discomfort and had a nuclear stress test on 05/02/2017 which did not show any perfusion abnormalities. A Holter monitor was done on 05/12/2017 which shows sinus rhythm with variable ventricular rate. Minimum heart rate of 41 bpm and maximum heart rate of 109 BPM. Lowest heart rate of 41 bpm was early in the morning when the patient was sleeping. There were 11,377 PACs and 606 PVCs. No other arrhythmias were noted. Symptoms of chest discomfort was correlated with sinus rhythm and PACs. Review of Systems-Cardiology Review of Systems Constitutional: As described under HPI; No As described under HPI, No no symptoms reported, No chills, No fever, No lightheadedness Eyes: No As described under HPI, No no symptoms reported, No blindness, No blurred vision, No contact lenses, No drainage, No decreased acuity, No foreign body sensation, No pain, No vision change Ears/Nose/Throat: No As described under HPI, No no symptoms reported, No chronic hearing loss, No ear discharge, No ear pain, No nasal drainage, No ulcerations Respiratory: No no symptoms reported; As described under HPI; No As described under HPI, No cough, No orthopnea, No shortness of breath, No SOB with excertion Cardiovascular: No no symptoms reported; As described under HPI; No As described under HPI; chest pain; No edema, No irregular heart rate, No lightheadedness, No palpitations Gastrointestinal: No no symptoms reported, No As described under HPI, No abdomen distended, No abdominal pain, No blood streaked bowels, No constipation , No diarrhea, No nausea, No vomiting, No stool coloration changes Genitourinary: No As described under HPI, No burning, No dysuria, No discharge , No frequency, No flank pain, No hematuria, No urgency Skin: No rash, No skin related problems, No ulcerations Psychiatric/Neurological: No anxiety, No depression, No seizure, No focal weakness, No syncope Hematologic: No bleeding abnormalities AXE-Vjyrgz-Kcxemi Hx Patient Social History Alcohol Use: Occasionally Uses Recreational Drug Use: No Type Used: Cigarettes 2nd Hand Smoke Exposure: No Recent Foreign Travel: No Recent Infectious Disease Expo: No Hospitalization with Isolation: Denies Physical Abuse Screen: No Sexual Abuse: No Immunizations Up To Date Tetanus Booster (TDap): Unknown Date of Pneumonia Vaccine: May 26, 2017 Date of Influenza Vaccine: May 25, 2018 Past Medical History PMH As described under Assessment. Family Medical History Family History: Asthma 19 FATHER, Onset:Unknown Colon cancer maternal grandmother, Onset:Unknown Dementia 19 FATHER, Onset:60 years & older FH: congestive heart failure maternal grandfather, Onset:Unknown FHx: colon cancer Myocardial infarction 19 MOTHER, Onset:60 years & older Allergies and Home Medications Allergies Coded Allergies: Penicillins (Verified Allergy, Severe, Rash, 12/09/18) diclofenac sodium (Verified Allergy, Mild, DIZZINESS, 12/09/18) methocarbamol (Verified Allergy, Mild, RASH, 12/09/18) Home Medications Amlodipine Besylate 10 Mg Tablet, 10 MG PO DAILY, (Reported) Aspirin 81 Mg Tablet.dr, 81 MG PO DAILY, (Reported) Atorvastatin Calcium 40 Mg Tablet, 40 MG PO HS, (Reported) Cholecalciferol (Vitamin D3) 50,000 Unit Capsule, 50,000 UNIT PO MoTh, (Reported ) Doxazosin Mesylate 4 Mg Tablet, 4 MG PO HS, (Reported) Epinephrine 0.3 Mg/0.3 Ml Auto.injct, 0.3 MG IJ UD PRN for ALLERGIC REACTION, ( Reported) Fexofenadine HCl 60 Mg Tablet, 60 MG PO DAILY, (Reported) Fluticasone Propionate 16 Gm [place].susp, 2 SPRAYS NS DAILY, (Reported) Insulin Aspart 300 Units/3 Ml Solution, 10 UNITS SQ TIDAC, (Reported) Insulin Detemir 100 Unit/1 Ml Insuln.pen, 75 UNITS SC HS, (Reported) Lisinopril 20 Mg Tablet, 20 MG PO HS, (Reported) Nitroglycerin 0.4 Mg Tab.subl, 0.4 MG SL UD PRN for CHEST PAIN, (Reported) Ondansetron 8 Mg Tab.rapdis, 8 MG PO Q12H PRN for NAUSEA/VOMITING-1ST LINE, ( Reported) Potassium Chloride 10 Meq Tablet.er, 10 MEQ PO DAILY, (Reported) Ranitidine HCl 75 Mg Tablet, 75 MG PO DAILY, (Reported) Spironolactone 50 Mg Tablet, 50 MG PO DAILY, (Reported) Tizanidine HCl 4 Mg Tablet, 4 MG PO HS, (Reported) Tizanidine HCl 4 Mg Tablet, 2 MG PO BID PRN for HEADACHE, (Reported) TAKES 1/2 (4MG) TABLET Torsemide 10 Mg Tablet, 10 MG PO DAILY, (Reported) Patient Home Medication List Home Medication List Reviewed: Yes Physical Exam-Cardiology Physical Exam Vital Signs/I&O 12/09/18 12/09/18 12/10/18 12/10/18 20:55 21:55 00:00 03:48 Temp 97.9 97.5 97.9 Pulse 72 76 72 68 Resp 20 20 20 B/P (MAP) 134/81 (98) 141/80 (100) 139/82 (101) 118/71 (87) Pulse Ox 96 97 97 97 O2 Delivery Room Air Room Air Room Air NIV CPAP 12/10/18 07:00 Pulse 64 12/10/18 00:00 Intake Total 740 ml Balance 740 ml Capillary Refill : Constitutional: appears stated age, AAO x 3; No apparent distress; well- developed, well-nourished HEENT: PERRL; No normal ENT inspection, No TMs normal, No pharynx normal, No scleral icterus (R), No scleral icterus (L), No pale conjunctivae (R), No pale conjunctivae (L), No photophobia, No TM abnormal (R), No TM abnormal (L), No pharyngeal erythema, No tonsillar exudate, No other, No discharge, No EOMI; hearing is well preserved; No hard of hearing; oral hygience is good; No ulceration, No xanthelasmas are seen Neck: No non-tender, No full range of motion, No supple, No normal inspection, No carotid bruit, No limited range of motion, No lymphadenopathy (R), No lymphadenopathy (L), No tender lateral, No tender midline, No thyromegaly, No other; carotid pulses are 2 + bilaterally; No with good upstrokes Respiratory: No accessory muscle use, No respiratory distress, No chest tender , No chest expansion is symmetric; chest is bilaterally symmetric; No lungs clear to percussion; lungs clear to auscultation; No crackles, No rhonchi, No rales, No stridor, No wheezing, No pleural rub, No other Cardiovascular: regular rate-rhythm; No irregularly irregular, No extra beats, No parasternal heave is noted, No JVD, No edema, No bradycardia, No tachycardia , No point of maximal impulse, No cardiac thrills are palpable; S1 and S2; No gallop/S3, No gallop/S4, No diastolic murmur, No systolic murmur, No friction rub, No click, No other Gastrointestinal: No tender, No soft, No round, No distended, No pulsatile mass , No organomegaly, No guarding, No rebound, No tenderness, No hernia, No mass, No audible bowel sounds, No abnormal bowel sounds, No abdominal bruits, No spleenomegaly, No other Rectal: deferred Extremities: No normal range of motion, No non-tender, No normal inspection, No pedal edema, No calf tenderness, No normal capillary refill, No pelvis stable , No calf tenderness, No inflammation, No pedal edema, No slow capillary refill , No swelling, No other, No abrasion, No clubbing, No cyanosis, No ecchymosis, No laceration, No no lower extremity edema bilateral, No significant edema, No tenderness, No wound Neurologic/Psychiatric: no motor/sensory deficits, alert, normal mood/affect, oriented x 3, power is 5/5 both on sides Skin: No normal color, No warm/dry, No cyanosis, No cool, No diaphoresis, No damp, No ecchymosis, No jaundice, No mottled, No pallor, No rash, No tattoos/ piercings, No ulcerations, No rash on exposed areas, No ulcerations on exposed areas, No other Data Review Labs Laboratory Tests 12/09/18 15:00: Troponin I < 0.028 12/09/18 16:00: Glucometer 167H 12/09/18 20:07: Glucometer 209H 12/09/18 20:55: Troponin I < 0.028 12/10/18 05:45: White Blood Count 7.5, Red Blood Count 4.54, Hemoglobin 13.3, Hematocrit 40, Mean Corpuscular Volume 87, Mean Corpuscular Hemoglobin 29, Mean Corpuscular Hemoglobin Concent 34, Red Cell Distribution Width 13.9, Platelet Count 254, Mean Platelet Volume 9.3, Neutrophils (%) (Auto) 72, Lymphocytes (%) (Auto) 19, Monocytes (%) (Auto) 8, Eosinophils (%) (Auto) 2, Basophils (%) (Auto) 0, Neutrophils # (Auto) 5.4, Lymphocytes # (Auto) 1.4, Monocytes # (Auto) 0.6, Eosinophils # (Auto) 0.1, Basophils # (Auto) 0.0, Prothrombin Time 13.9, INR Comment 1.0, Sodium Level 138, Potassium Level 4.2, Chloride Level 107, Carbon Dioxide Level 20L, Anion Gap 11, Blood Urea Nitrogen 17, Creatinine 0.84, Estimat Glomerular Filtration Rate > 60, BUN/Creatinine Ratio 20, Glucose Level 227H, Calcium Level 9.2, Corrected Calcium 9.0, Total Bilirubin 0.8, Aspartate Amino Transf (AST/SGOT) 14, Alanine Aminotransferase (ALT/SGPT) 30, Alkaline Phosphatase 63, Total Protein 6.4, Albumin 4.2 12/10/18 06:03: Glucometer 219H ECG Impression ECG Initial ECG Rhythm: Normal Sinus Initial ECG Impression: Normal A/P-Cardiology Assessment/Admission Diagnosis Unstable angina, Hyperlipidemia, Hypertension, Sinus bradycardia, History of paroxysmal atrial tachycardia. Admission Status: Observation Plan This is a 63-year-old gentleman who has been transferred for prolonged episode of chest pain. The patient has history of diabetes, hypertension, he denies hypercholesterolemia and smoking. He has family history of premature coronary artery disease. His mother had an RI at an early age. He complained previously of bradycardia and chest tightness usually at the same time. we had requested echocardiogram and nuclear stress testing. However before he could get a nuclear stress test he came with a prolonged episode of chest pain to the hospital. Coronary angiography was performed by Dr. Yoon. A 70 percent stenosis was seen in the mid RCA which was treated with a drug- eluting stent Xience Alpine 4.0x15mm. This was done on 04/26/2017. echocardiogram done on 05/12/2017 showed normal LV function. No significant valvular heart disease. Aorta is mildly dilated. Follow-up imaging will be recommended in 6 months. He presented again with mild discomfort and had a nuclear stress test on 05/02/2017 which did not show any perfusion abnormalities. A Holter monitor was done on 05/12/2017 which shows sinus rhythm with variable ventricular rate. Minimum heart rate of 41 bpm and maximum heart rate of 109 BPM. Lowest heart rate of 41 bpm was early in the morning when the patient was sleeping. There were 11,377 PACs and 606 PVCs. No other arrhythmias were noted. Symptoms of chest discomfort was correlated with sinus rhythm and PACs. CAD: Prolonged episode of chest pain. serial troponin and EKG. Coronary angiography tomorrow. Continue aspirin. I will restart Plavix. Patient will also continue statin. Coronary angiography on 12/11/2017 shows normal stent in the RCA. Patent left main, LAD and left circumflex artery. LVEDP 16 mmHg. Bradycardia: Improved heart rate. Previously Lowest heart rate of 41 BPM was noted during sleep during Holter monitor. Due to bradycardia he is not on a beta joaquim. Frequent PACs and PVCs. However heart rate has improved significantly and we will start low-dose of beta joaquim. We'll start Toprol- XL 12.5 mg daily. Hypertension: Mild elevated. If consistently blood pressure is over 145 mmHg we will consider increasing amlodipine. Salt restriction was recommended. Continue lisinopril. Continue torsemide, Aldactone and potassium supplementation, we had discontinued all 3 medications after his last coronary angiography on 12/11/2017. Hyperlipidemia: On 02/25/2017 the patient's total cholesterol was 149, triglyceride was 85, HDL 35, LDL 97. Based on the current ACC/AHA guidelines his risk of stroke and CAD is 25 percent at 10 years. Therefore it is recommended that he starts aspirin, and high intensity statin. Previously I started him on Lipitor 40 mg daily. He will require lipid profile in the near future. History of Dilated aorta: Previously Aortic root diameter 4.1 cm. repeat echocardiogram in November 2017 shows an aortic root of 3.8 cm which is within normal limits. Repeat in May 2018. Patient has diabetes. Diabetes education was done especially diet and exercise. Paroxysmal atrial tachycardia. Event monitor done in April 2017 showed a brief episode of PAT at 155 BPM. Patient will continue current medical therapy. However if he continues to have recurrent palpitations I will recommend implantable loop recorder for atrial fibrillation surveillance. Left leg discomfort: This could be claudication equivalent or secondary to his vertebral disc problem. However the patient does have diabetes and CAD therefore is at risk for PAD. AGGIE were negative. Unlikely severe PAD. Expanded volume plasma hypertension: Diagnosed at [facility]. He was started on torsemide, Aldactone and potassium supplementation. I had discontinued all 3 after his last coronary angiography on 12/11/2017. However all 3 were restarted previously. Clinical Quality Measures DVT/VTE Risk/Contraindication: Risk Factor Score Per Nursin RFS Level Per Nursing on Admit: 4+=Very High Almaz COKER MD Dec 09, 2018 2:55 pm
--- OUTSIDE RECORDS SUMMARY | 2018-12-09 14:59 | XMS REPORT ---
Author Author Mallory Olivia [facility] Address [address] [place], [place] [id number] Care Team Providers Care Refrigeration Tech Name Role Phone Mallory Olivia PCP Allergies and Adverse Reactions Name Reaction Notes PENICILLINS Xylocaine (Cardiac) Plan of Treatment Planned Activity Comments Planned Date Planned Time Plan/Goal GI PANEL 11/24/2018 12:00 AM Medications Active Name Start Date Estimated Completion Date SIG Comments lisinopril oral short and long insulin atorvastatin oral gabapentin 100 mg oral capsule take 1 capsule (100 mg) by oral route twice daily ondansetron 8 mg oral tablet,disintegrating 11/24/2018 Take one tablet every 12 hours as needed for nausea Name Start Date Expiration Date SIG Comments [...] 3 times a day for 10 days Zoey 180 mg oral tablet 04/17/2012 05/17/2012 [...] days Bactrim DS 800-160 mg oral tablet 04/20/2016 04/27/2016 take 1 tablet by oral route 2 times per day for 7 days Discontinued Name Start Date Discontinued Date [...] are recommended within a 15 minute period. clonidine HCl 0.1 mg oral tablet 03/29/2011 11/24/2018 take 1 tablet (0.1 mg) by oral route 2 times per day Zithromax Z-Wilner 250 mg oral tablet 05/14/2011 take 2 tablets (500 mg) by oral route once daily for 1 day then 1 tablet (250 mg) by oral route once daily for 4 days metoprolol tartrate 25 mg oral tablet 04/17/2012 11/24/2018 take 1 tablet by oral route 2 times a day cyclobenzaprine 10 mg oral tablet 07/30/2013 11/24/2018 take 1 tablet by mouth daily at HS naproxen 500 mg oral tablet,delayed release (/EC) 07/30/2013 11/24/2018 take 1 tablet by oral route 2 times a day Problem List Description Status Onset Hypertension Active Vital Signs Date Time BP-Sys(mm[Hg] BP-Sri(mm[Hg]) HR(bpm) RR(rpm) Temp WT HT HC BMI BSA BMI Percentile O2 Sat(%) 11/24/2018 5:06:00 PM 148 mmHg 82 mmHg 81 bpm 20 rpm 98.2 F 264 lbs 70 in 37.8797 kg/m 2.4319 m 95 % 04/20/2016 10:35:00 AM 156 mmHg 98 mmHg [...] rpm 97.3 F 245.5 lbs 70 in 35.2252 kg/m 2.3452 m 04/23/2011 8:30:00 AM 162 mmHg 98 mmHg [...] Description Comments Alcohol Use 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 Tobacco Never smoker History of Procedures Date Ordered Description Order Status 05/14/2011 12:00 AM METABOLIC PANEL TOTAL CA Reviewed 05/14/2011 12:00 AM Decadron 1 mg [facility]#[id number] (Tito) Reviewed 05/14/2011 12:00 AM Depo-Medrol 80 mg [facility]#[id number] Reviewed 04/20/2016 10:46 AM URINALYSIS AUTO W/O SCOPE Reviewed 11/24/2018 12:00 AM THER/PROPH/DIAG INJ SC/IM Reviewed 11/24/2018 12:00 AM Zofran 4mg Injection Reviewed 09/16/2013 12:00 AM MRI JOINT UPR EXTR W/O&W/DYE Reviewed 10/20/2013 12:00 AM THER/PROPH/DIAG INJ SC/IM Reviewed 10/20/2013 12:00 AM Decadron, Per 1 Mg [facility]# [address]-68 Reviewed 10/20/2013 12:00 AM Depo-Medrol, Per 80 Mg [facility]#5721-1111-67 Reviewed 05/23/2010 12:00 AM COMPREHEN METABOLIC PANEL Reviewed 05/23/2010 12:00 AM LIPID PANEL Reviewed 05/23/2010 12:00 AM Prostate Cancer Screening PSA Reviewed 08/22/2009 12:00 AM CARDIOVASCULAR STRESS TEST Reviewed 07/03/2010 12:00 AM METABOLIC PANEL TOTAL CA Reviewed 05/28/2010 12:00 AM THER/PROPH/DIAG INJ SC/IM Reviewed 05/28/2010 12:00 AM Decadron Inj. per 1mg-[facility] [id number] Reviewed 05/28/2010 12:00 AM Depo-Medrol 80 Mg [facility] [id number] Reviewed Results Summary Date and Description Results 07/03/2010 2:27 PM GLUCOSE 138.0 mg/dLSODIUM 140.0 mmol/LPOTASSIUM 3.30 mmol/ LCHLORIDE 99.0 mmol/LCO2 30.0 mmol/LBUN 15.0 mg/dLCREATININE 1.0 mg/dLCALCIUM 9.50 mg/dLAGE 54 GFR NonAA 78 GFR AA 95 eGFR >60 mL/min/1.73 m2eGFR AA* >60 05/14/2011 3:58 PM GLUCOSE 99.0 mg/dLSODIUM 142.0 mmol/LPOTASSIUM 3.70 mmol/ LCHLORIDE 105.0 mmol/LCO2 25.0 mmol/LBUN 14.0 mg/dLCREATININE 0.80 mg/dLCALCIUM 8.90 mg/dLAGE 55 GFR NonAA 101 GFR AA 122 eGFR >60 mL/min/1.73 m2eGFR AA* >60 04/20/2016 10:46 AM Clarity Ur clear Color [...] Headache Impaired Fasting Glucose Upper Respiratory Infection Jan 25 2010 8:59AM Sinusitis, Acute May 23 2010 [...] 3:14PM Sinusitis, Acute May 14 2011 3:14PM Diabetes Sprain And Strain Apr 17 2012 11:18AM [...] cystitis without hematuria Apr 20 2016 10:39AM Diarrhea Nov 24 2018 5:13PM Nausea Nov 24 2018 5:13PM Payers Insurance Name Company Name Plan Name Plan Number Policy Number Policy Group Number Start Date [employer] [place] [id number] N/A State Self Insurance Fund *INVALID State Self Insurance [id number] N /A [employer] [place] [id number] June [employer] [place] [id number] N/A History of Encounters Visit Date Visit Type Provider 11/24/2018 Office visit Mallory Olivia DIRECTOR OF KIDS 12/09/2017 [facility] Nancy Carrero MD 06/26/2017 [facility] Nancy Carrero MD 04/05/2017 [facility] Nancy Carrero MD 04/20/2016 Office visit Tej Hughes NP 11/02/2015 [facility] Nancy Carrero MD 03/14/2014 [facility] Nancy Carrero MD 12/06/2013 Office visit Chante Thompson DIRECTOR OF KIDS 10/20/2013 Office visit Chante Thompson DIRECTOR OF KIDS 09/23/2013 Office visit Chante Thompson DIRECTOR OF KIDS 09/16/2013 Office visit Chante Thompson DIRECTOR OF KIDS 09/02/2013 Office visit Chante Thompson DIRECTOR OF KIDS 08/06/2013 Office visit Chante Thompson DIRECTOR OF KIDS 07/30/2013 Office visit Chante Thompson DIRECTOR OF KIDS 06/29/2013 Hospital Nancy Carrero MD 06/09/2012 Hospital Nancy Carrero MD 05/14/2012 Office visit Yamile Rowland MD 04/23/2012 Office visit Yamile Rowland MD 04/17/2012 Office visit Yamile Rowland MD 05/14/2011 Office visit Chante Thompson DIRECTOR OF KIDS 04/23/2011 Office visit Holden Atwood MD 03/29/2011 Office visit Holden Atwood MD 03/11/2011 Hospital Nancy Carrero MD 03/11/2011 Hospital Nancy Carrero MD 03/11/2011 Hospital Nancy Carrero MD 03/10/2011 Hospital Nancy Carrero MD 03/10/2011 Hospital Nancy Carrero MD 02/27/2011 Hospital Nancy Carrero MD 01/29/2011 Office visit Holden Atwood MD 01/21/2011 Hospital Nancy Carrero MD 01/21/2011 [facility] Nancy Carrero MD 12/03/2010 Office visit Holden Atwood MD 10/29/2010 Office visit Holden Atwood MD 07/17/2010 Office visit Holden Atwood MD 07/03/2010 Office visit Holden Atwood MD 06/27/2010 [facility] Nancy Carrero MD 05/28/2010 Nurse visit Holden Atwood MD 05/23/2010 Office visit Chante Thompson APRN 01/25/2010 Office visit Holden Atwood MD 08/22/2009 Office visit Holden Awtood MD 08/14/2009 Laboratory Ricci Marte MD 06/14/2009 Office visit Mynor Gabriel DO
[2018-12-09] MEDS ORDERED: PATIENT MAY USE OWN MEDS, ALL PO SCH (15:00)
--- OUTSIDE RECORDS SUMMARY | 2018-12-09 15:14 | XMS REPORT | Continuity of Care Document ---
Author Organization Unknown Address Unknown Allergies Active Description Code Type Severity Reaction Onset Reported/Identified Relationship to Patient Clinical Status Yes diclofenac sodium [id number] Drug Allergy Unknown N/A 12/10/2017 Yes lidocaine HCl [id number] Drug Allergy Unknown LOW PULSE 12/10/2017 Yes Penicillins [id number] Drug Allergy Severe Rash 09/16/2018 Yes diclofenac sodium [id number] Drug Allergy Mild DIZZINESS 09/16/2018 Yes methocarbamol [id number] Drug Allergy Mild RASH 09/16/2018 Medications There is no data. Problems Date [...] JUNE ALVAREZ MD Ot 478.19 08/17/2015 JUNE ALAVREZ MD Ot 780.4 08/17/2015 Ot 427.89 08/17/2015 [...] MD Ot 723.0 CERVICAL SPINAL STENOSIS 04/27/2017 NIKO CHAMPION DOI Ot E11.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 W DIABETIC TANK TESTER 04/27/2017 NIKO CHAMPION DOI Ot E78.5 HYPERLIPIDEMIA, UNSPECIFIED 04/27/2017 JAYCEE MILNER JANEEN Ot G47.33 OBSTRUCTIVE SLEEP APNEA (ADULT) (PEDIATR 04/27/2017 JAYCEE MILNER JANEEN Ot I12.9 HYPERTENSIVE CHRONIC KIDNEY DISEASE W ST 04/27/2017 NIKO CHAMPION DOI Ot I25.110 ATHSCL 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 ART W 04/27/2017 JAYCEE MILNER JANEEN Ot J44.9 CHRONIC OBSTRUCTIVE PULMONARY DISEASE, U 04/27/2017 JAYCEE MILNER JANEEN Ot N18.9 CHRONIC KIDNEY DISEASE, UNSPECIFIED 04/27/2017 NIKO CHAMPION DOI Ot Z79.899 OTHER INTERMEDIATE (CURRENT) DRUG THERAPY 04/27/2017 NIKO CHAMPION DOI Ot Z82.49 FAMILY HX OF I[place]HE[place] HEART DIS AND OTH DI 05/02/2017 NIKO CHAMPION DOI Ot E11.40 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 WITH DIABETIC N 05/02/2017 JAYCEE MILNER JANEEN Ot G47.33 OBSTRUCTIVE SLEEP APNEA (ADULT) (PEDIATR 05/02/2017 CHAMPION DO, JANEEN Ot I12.9 HYPERTENSIVE CHRONIC KIDNEY DISEASE W ST 05/02/2017 CHAMPION DO, JANEEN Ot I25.10 ATHSCL 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ONARY 05/02/2017 CHAMPION DO, JANEEN Ot N18.2 CHRONIC KIDNEY DISEASE, STAGE 2 (MILD) 05/02/2017 CHAMPION DO, JANEEN Ot R07.9 CHEST PAIN, UNSPECIFIED 05/02/2017 CHAMPION DO, JANEEN Ot Z79.02 SUSTAINABILITY PROJECT COORDINATOR (CURRENT) USE OF ANTITHROMBOTI 05/02/2017 CHAMPION DO, JANEEN Ot Z79.84 INTERMEDIATE (CURRENT) USE OF ORAL HYPOGLYC 05/02/2017 CHAMPION DO, JANEEN Ot Z79.899 OTHER INTERMEDIATE (CURRENT) DRUG THERAPY 05/02/2017 CHAMPION DO, JANEEN Ot Z95.5 PRESENCE OF CORONARY ANGIOPLASTY IMPLANT 05/02/2017 CHAMPION DO, JANEEN Ot E11.40 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 WITH DIABETIC N 05/02/2017 JAYCEE DO, JANEEN Ot G47.33 OBSTRUCTIVE SLEEP APNEA (ADULT) (PEDIATR 05/02/2017 CHAMPION DO, JANEEN Ot I12.9 HYPERTENSIVE CHRONIC KIDNEY DISEASE W ST 05/02/2017 CHAMPION DO, JANEEN Ot I25.10 ATHSCL 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ONARY 05/02/2017 CHAMPION DO, JANEEN Ot N18.2 CHRONIC KIDNEY DISEASE, STAGE 2 (MILD) 05/02/2017 CHAMPION DO JANEEN Ot R07.9 CHEST PAIN, UNSPECIFIED 05/02/2017 JAYCEE DO JANEEN Ot Z79.02 SUSTAINABILITY PROJECT COORDINATOR (CURRENT) USE OF ANTITHROMBOTI 05/02/2017 CHAMPION DO, JANEEN Ot Z79.84 INTERMEDIATE (CURRENT) USE OF ORAL HYPOGLYC 05/02/2017 CHAMPION DO, JANEEN Ot Z79.899 OTHER SUSTAINABILITY PROJECT COORDINATOR (CURRENT) DRUG THERAPY 05/02/2017 JAYCEE DO, JANEEN Ot Z95.5 PRESENCE OF CORONARY ANGIOPLASTY IMPLANT 05/05/2017 JAYCEE DO, JANEEN Ot E11.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 W DIABETIC TANK TESTER 05/05/2017 JAYCEE DO, JANEEN Ot E78.5 HYPERLIPIDEMIA, UNSPECIFIED 05/05/2017 JAYCEE DO, JANEEN Ot G47.33 OBSTRUCTIVE SLEEP APNEA (ADULT) (PEDIATR 05/05/2017 CHAMPION DO, JANEEN Ot I12.9 HYPERTENSIVE CHRONIC KIDNEY DISEASE W ST 05/05/2017 CHAMPION DO, JANEEN Ot I25.110 ATHSCL 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 ART W 05/05/2017 CHAMPION DO, JANEEN Ot J44.9 CHRONIC OBSTRUCTIVE PULMONARY DISEASE, U 05/05/2017 CHAMPION DO, JANEEN Ot N18.9 CHRONIC KIDNEY DISEASE, UNSPECIFIED 05/05/2017 CHAMPION DO, JANEEN Ot Z79.899 OTHER SUSTAINABILITY PROJECT COORDINATOR (CURRENT) DRUG THERAPY 05/05/2017 CHAMPION DO, JANEEN Ot Z82.49 FAMILY HX OF [place] HEART DIS AND OTH DI 05/06/2017 CHAMPION DO, JANEEN Ot E11.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 W DIABETIC TANK TESTER 05/06/2017 CHAMPION DO, JANEEN Ot E78.5 HYPERLIPIDEMIA, UNSPECIFIED 05/06/2017 CHAMPION DO, JANEEN Ot G47.33 OBSTRUCTIVE SLEEP APNEA (ADULT) (PEDIATR 05/06/2017 CHAMPION DO, JANEEN Ot I12.9 HYPERTENSIVE CHRONIC KIDNEY DISEASE W ST 05/06/2017 CHAMPION DO, JANEEN Ot I25.110 ATHSCL 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 ART W 05/06/2017 CHAMPION DO, JANEEN Ot J44.9 CHRONIC OBSTRUCTIVE PULMONARY DISEASE, U 05/06/2017 CHAMPION DO, JANEEN Ot N18.9 CHRONIC KIDNEY DISEASE, UNSPECIFIED 05/06/2017 CHAMPION DO, JANEEN Ot Z79.899 OTHER SUSTAINABILITY PROJECT COORDINATOR (CURRENT) DRUG THERAPY 05/06/2017 CHAMPION DO, JANEEN [...] ACOSTA Ot R07.89 OTHER CHEST PAIN 05/14/2017 DEU PEDRAZA, Almaz ACOSTA Ot E11.9 TYPE 2 [...] DAVE Ot R00.1 BRADYCARDIA, UNSPECIFIED 05/21/2017 EDU PEDRAAZ M DAVE Ot R07.89 OTHER CHEST PAIN [...] DAVE Ot R07.89 OTHER CHEST PAIN 05/23/2017 Almaz SORENSEN MD Ot R00.1 BRADYCARDIA, UNSPECIFIED 05/23/2017 Almaz SORENSEN MD Ot R07.89 OTHER CHEST PAIN 08/20/2017 Almaz SORENSEN MD Ot R00.1 BRADYCARDIA, UNSPECIFIED 08/20/2017 Almaz SORENSEN MD Ot R07.89 OTHER CHEST PAIN 08/21/2017 Almaz SORENSEN MD Ot R00.1 BRADYCARDIA, UNSPECIFIED 08/21/2017 Almaz SORENSEN MD Ot R07.89 OTHER CHEST PAIN 09/08/2017 JUNE ALVAREZ MD Ot 478.19 OTHER DISEASE [...] MD Ot I25.10 ATHSCL 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ONARY 09/16/2017 EDU PEDRAZA, Almaz ACOSTA Ot 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 10/27/2017 Almaz SORENSEN MD Ot I25.10 ATHSCL 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ONARY 10/27/2017 EDU PEDRAZA, Almaz ACOSTA Ot 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 11/19/2017 Almaz SORENSEN MD Ot I25.10 ATHSCL 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ONARY 11/19/2017 EDU PEDRAZA, Almaz ACOSTA Ot 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 12/10/2017 EDU PEDRAZA, lAmaz ACOSTA Ot I25.10 ATHSCL 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ONARY 12/10/2017 EDU PEDRAZA, Almaz ACOSTA Ot [...] SORENSEN MD Ot R00.1 BRADYCARDIA, UNSPECIFIED 12/10/2017 EDU PEDRAZA, Almaz ACOSTA Ot R07.89 OTHER CHEST PAIN 12/10/2017 EDU PEDRAZA, Almaz ACOSTA Ot I25.10 ATHSCL 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ONARY 12/10/2017 EDU PEDRAZA, Almaz ACOSTA Ot 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 12/10/2017 EDU PEDRAZA, Almaz ACOSTA Ot I25.10 ATHSCL 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ONARY 12/10/2017 EDU PEDRAZA, Almaz ACOSTA Ot [...] JANEEN Ot I25.1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 ART W 12/11/2017 JAYCEE MILNER AJNEEN Ot N18.9 CHRONIC KIDNEY DISEASE, UNSPECIFIED 12/11/2017 JAYCEE MILNER JANEEN Ot R07.89 OTHER CHEST PAIN 12/11/2017 JAYCEE MILNER JANEEN Ot Z68.36 BODY MASS INDEX (BMI) 36.0-36.9, ADULT 12/11/2017 JAYCEE MILNER JANEEN Ot Z79.4 SUSTAINABILITY PROJECT COORDINATOR (CURRENT) USE OF INSULIN 12/11/2017 NIKO CHAMPION DOI Ot Z88.0 ALLERGY STATUS TO PENICILLIN 12/11/2017 JAYCEE MILNER JANEEN Ot Z95.5 PRESENCE OF CORONARY ANGIOPLASTY IMPLANT 12/16/2017 NIKO CHAMPION DOI Ot E11.42 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 WITH DIABETIC P 12/16/2017 JAYCEE MILNER JANEEN Ot E66.9 OBESITY, UNSPECIFIED 12/16/2017 CHAMPION DO, JANEEN Ot E78.5 HYPERLIPIDEMIA, UNSPECIFIED 12/16/2017 CHAMPION DO, JANEEN Ot G47.33 OBSTRUCTIVE SLEEP APNEA (ADULT) (PEDIATR 12/16/2017 CHAMPION DO, JANEEN Ot I12.9 HYPERTENSIVE CHRONIC KIDNEY DISEASE W ST 12/16/2017 CHAMPION DO, JANEEN Ot I25.1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 ART W 12/16/2017 CHAMPION DO JANEEN Ot N18.9 CHRONIC KIDNEY DISEASE, UNSPECIFIED 12/16/2017 CHAMPION DO, JANEEN Ot R07.89 OTHER CHEST PAIN 12/16/2017 CHAMPION DO JANEEN Ot Z68.36 BODY MASS INDEX (BMI) 36.0-36.9, ADULT 12/16/2017 CHAMPION DO JANEEN Ot Z79.4 SUSTAINABILITY PROJECT COORDINATOR (CURRENT) USE OF INSULIN 12/16/2017 CHAMPIONDIANA MILNER JANEEN Ot Z88.0 ALLERGY STATUS TO PENICILLIN 12/16/2017 JAYCEE MILNER JANEEN Ot Z95.5 PRESENCE OF CORONARY ANGIOPLASTY IMPLANT 01/09/2018 FADY SORENSEN MD Ot E11.65 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 WITH HYPERGLYCE 01/09/2018 FADY SORENSEN MD Ot I12.9 HYPERTENSIVE CHRONIC KIDNEY DISEASE W ST 01/09/2018 FADY SORENSEN MD Ot N18.2 CHRONIC KIDNEY DISEASE, STAGE 2 (MILD) 01/09/2018 FADY SORENSEN MD Ot N28.1 CYST OF KIDNEY, ACQUIRED 01/19/2018 FADY SORENSEN MD Ot E11.65 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 WITH HYPERGLYCE 01/19/2018 FADY SORENSEN MD Ot I12.9 HYPERTENSIVE CHRONIC KIDNEY DISEASE W ST 01/19/2018 FADY SORENSEN MD Ot N18.2 CHRONIC KIDNEY DISEASE, STAGE 2 (MILD) 01/19/2018 FADY SORENSEN MD, Ot N28.1 CYST OF KIDNEY, ACQUIRED 04/07/2018 Ot E11.65 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 WITH HYPERGLYCE 04/07/2018 Ot E78.00 PURE HYPERCHOLESTEROLEMIA, UNSPECIFIED 04/07/2018 Ot E78.1 PURE HYPERGLYCERIDEMIA 04/07/2018 Ot Z00.00 ENCNTR FOR GENERAL ADULT MEDICAL EXAM W/ 04/17/2018 Ot E11.65 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 WITH HYPERGLYCE 04/17/2018 Ot E78.00 PURE HYPERCHOLESTEROLEMIA, UNSPECIFIED 04/17/2018 Ot E78.1 PURE HYPERGLYCERIDEMIA 04/17/2018 Ot Z00.00 ENCNTR FOR GENERAL ADULT MEDICAL EXAM W06/04/2018 EDU PEDRAZA, Almaz ACOSTA Ot E66.9 OBESITY, UNSPECIFIED 06/04/2018 EDU PEDRAZA, Almaz ACOSTA Ot I10 ESSENTIAL (PRIMARY) HYPERTENSION 06/04/2018 EDU PEDRAZA, Almaz ACOSTA Ot I25.10 ATHSCL 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ONARY 06/04/2018 EDU PEDRAZA, Almaz ACOSTA Ot I47.1 SUPRAVENTRICULAR TACHYCARDIA 06/04/2018 EDU PEDRAZA, Almaz ACOSTA Ot 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 06/04/2018 EDU PEDRAZA, Almaz ACOSTA Ot R00.1 BRADYCARDIA, UNSPECIFIED 06/18/2018 EDU PEDRAZA, FADY Murguia Ot E11.65 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 WITH HYPERGLYCE 06/18/2018 EDU PEDRAZA, FADY R Ot I12.9 HYPERTENSIVE CHRONIC KIDNEY DISEASE W ST 06/18/2018 EDU PEDRAZA, FADY R Ot N18.2 CHRONIC KIDNEY DISEASE, STAGE 2 [...] 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 WITH HYPERGLYCE 08/21/2018 CHAMPION DO, JANEEN Ot E78.00 PURE HYPERCHOLESTEROLEMIA, UNSPECIFIED 08/21/2018 JAYCEE MILNER JANEEN Ot E78.1 PURE HYPERGLYCERIDEMIA 08/21/2018 NIKO CHAMPION DOI Ot Z00.00 ENCNTR FOR GENERAL ADULT MEDICAL EXAM W/ 09/04/2018 JANEEN CHAMPION DO Ot E11.9 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 WITHOUT COMPLIC 09/04/2018 JAYCEE MILNER JANEEN Ot E66.9 OBESITY, UNSPECIFIED 09/04/2018 JAYCEE MILNER JANEEN Ot E78.00 PURE HYPERCHOLESTEROLEMIA, UNSPECIFIED 09/04/2018 JAYCEE MILNER JANEEN Ot E78.5 HYPERLIPIDEMIA, UNSPECIFIED 09/04/2018 JAYCEE MILNER JANEEN Ot G47.33 OBSTRUCTIVE SLEEP APNEA (ADULT) (PEDIATR 09/04/2018 NIKO CHAMPION DOI Ot I12.9 HYPERTENSIVE CHRONIC KIDNEY DISEASE W ST 09/04/2018 NIKO CHAMPION DOI Ot I25.118 ATHSCL 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 ART W 09/04/2018 NIKO CHAMPION DOI Ot M79.662 PAIN IN LEFT LOWER LEG 09/04/2018 NIKO CHAMPION DOI Ot N18.9 CHRONIC KIDNEY DISEASE, UNSPECIFIED 09/04/2018 NIKO CHAMPION DOI Ot R00.1 BRADYCARDIA, UNSPECIFIED 09/04/2018 NIKO CHAMPION DOI Ot R07.9 CHEST PAIN, UNSPECIFIED 09/04/2018 NIKO CHAMPION DOI Ot Z79.4 INTERMEDIATE (CURRENT) USE OF INSULIN 09/04/2018 NIKO CHAMPION DOI Ot Z79.82 SUSTAINABILITY PROJECT COORDINATOR (CURRENT) USE OF ASPIRIN 09/04/2018 NIKO CHAMPION DOI Ot Z79.899 OTHER INTERMEDIATE (CURRENT) DRUG THERAPY 09/04/2018 NIKO CHAMPION DOI Ot Z87.891 PERSONAL HISTORY OF NICOTINE DEPENDENCE 09/04/2018 NIKO CHAMPION DOI Ot Z88.0 ALLERGY STATUS TO PENICILLIN 09/04/2018 NIKO CHAMPION DOI Ot Z95.5 PRESENCE OF CORONARY ANGIOPLASTY IMPLANT 09/04/2018 JANEEN CHAMPION DO Ot E11.9 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 WITHOUT COMPLIC 09/04/2018 JAYCEE MILNER JANEEN Ot E66.9 OBESITY, UNSPECIFIED 09/04/2018 JAYCEE MILNER JANEEN Ot E78.00 PURE HYPERCHOLESTEROLEMIA, UNSPECIFIED 09/04/2018 JAYCEE MILNER JANEEN Ot E78.5 HYPERLIPIDEMIA, UNSPECIFIED 09/04/2018 JANEEN CHAMPION DO Ot G47.33 OBSTRUCTIVE SLEEP APNEA (ADULT) (PEDIATR 09/04/2018 JANEEN CHAMPION DO Ot I12.9 HYPERTENSIVE CHRONIC KIDNEY DISEASE W ST 09/04/2018 JANEEN CHAMPION DO Ot I25.118 ATHSCL 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 ART W 09/04/2018 JANEEN CHAMPION DO Ot M79.662 PAIN IN LEFT LOWER LEG 09/04/2018 JANEEN CHAMPION DO Ot N18.9 CHRONIC KIDNEY DISEASE, UNSPECIFIED 09/04/2018 JANEEN CHAMPION DO Ot R00.1 BRADYCARDIA, UNSPECIFIED 09/04/2018 JANEEN CHAMPION DO Ot R07.9 CHEST PAIN, UNSPECIFIED 09/04/2018 JANEEN CHAMPION DO Ot Z79.4 INTERMEDIATE (CURRENT) USE OF INSULIN 09/04/2018 JANEEN CHAMPION DO Ot Z79.82 INTERMEDIATE (CURRENT) USE OF ASPIRIN 09/04/2018 JANEEN CHAMPION DO Ot Z79.899 OTHER INTERMEDIATE (CURRENT) DRUG THERAPY 09/04/2018 JANEEN CHAMPION DO Ot Z87.891 PERSONAL HISTORY OF NICOTINE DEPENDENCE 09/04/2018 JANEEN CHAMPION DO Ot Z88.0 ALLERGY STATUS TO PENICILLIN 09/04/2018 JANEEN CHAMPION DO Ot Z95.5 PRESENCE OF CORONARY ANGIOPLASTY IMPLANT 09/16/2018 Ot 427.89 CARDIAC DYSRHYTHMIAS NEC 09/16/2018 EDU PEDRAZA, Almaz ACOSTA Ot R00.1 BRADYCARDIA, UNSPECIFIED 09/16/2018 EDU PEDRAZA, Almaz ACOSTA Ot R07.89 OTHER CHEST PAIN 09/16/2018 SATHISH SALOMON MD Ot Z01.818 ENCOUNTER FOR OTHER PREPROCEDURAL EXAMIN 10/12/2018 SATHISH SALOMON MD Ot Z01.818 ENCOUNTER FOR OTHER PREPROCEDURAL EXAMIN 10/13/2018 SATHISH SALOMON MD Ot Z01.818 ENCOUNTER FOR OTHER PREPROCEDURAL EXAMIN 10/20/2018 SATHISH SALOMON MD Ot M46.1 SACROILIITIS, NOT ELSEWHERE CLASSIFIED 10/20/2018 SATHISH SALOMON MD Ot M48.061 SPINAL STENOSIS, LUMBAR REGION WITHOUT N 10/20/2018 IPSEN MD, SATHISH J Ot M54.16 RADICULOPATHY, LUMBAR REGION 10/27/2018 SATHISH SALOMON MD Ot M46.1 SACROILIITIS, NOT ELSEWHERE CLASSIFIED 10/27/2018 SATHISH SALOMON MD Ot M48.061 SPINAL STENOSIS, LUMBAR REGION WITHOUT N 10/27/2018 SATHISH SALOMON MD Ot M54.16 RADICULOPATHY, LUMBAR REGION 10/29/2018 SATHISH SALOMON MD Ot E11.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 W DIABETIC TANK TESTER 10/29/2018 SATHISH SALOMON MD Ot E11.40 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 WITH DIABETIC N 10/29/2018 SATHISH SALOMON MD Ot G47.33 OBSTRUCTIVE SLEEP APNEA (ADULT) (PEDIATR 10/29/2018 SATHISH SALOMON MD, Ot I12.9 HYPERTENSIVE CHRONIC KIDNEY DISEASE W ST 10/29/2018 SATHISH SALOMON MD Ot I25.1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 ART W 10/29/2018 SATHISH SALOMON MD Ot K21.9 GASTRO-ESOPHAGEAL REFLUX DISEASE WITHOUT 10/29/2018 SATHISH SALOMON MD Ot M46.1 SACROILIITIS, NOT ELSEWHERE CLASSIFIED 10/29/2018 SATHISH SALOMON MD Ot M48.061 SPINAL STENOSIS, LUMBAR REGION WITHOUT N 10/29/2018 SATHISH SALOMON MD Ot M54.16 RADICULOPATHY, LUMBAR REGION 10/29/2018 SATHISH SALOMON MD Ot N18.2 CHRONIC KIDNEY DISEASE, STAGE 2 (MILD) 10/29/2018 SATHISH SALOMON MD Ot Q61.3 POLYCYSTIC KIDNEY, UNSPECIFIED 10/29/2018 SATHISH SALOMON MD Ot Z79.4 SUSTAINABILITY PROJECT COORDINATOR (CURRENT) USE OF INSULIN 10/29/2018 SATHISH SALOMON MD Ot Z79.82 INTERMEDIATE (CURRENT) USE OF ASPIRIN 10/29/2018 SATHISH SALOMON MD Ot Z79.899 OTHER INTERMEDIATE (CURRENT) DRUG THERAPY 10/29/2018 SATHISH SALOMON MD Ot Z88.0 ALLERGY STATUS TO PENICILLIN 10/29/2018 SATHISH SALOMON MD Ot Z95.5 PRESENCE OF CORONARY ANGIOPLASTY IMPLANT 11/01/2018 SATHISH SALOMON MD Ot E11.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 W DIABETIC TANK TESTER 11/01/2018 SATHISH SALOMON MD Ot E11.40 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 WITH DIABETIC N 11/01/2018 SATHISH SALOMON MD Ot G47.33 OBSTRUCTIVE SLEEP APNEA (ADULT) (PEDIATR 11/01/2018 SATHISH SALOMON MD Ot I12.9 HYPERTENSIVE CHRONIC KIDNEY DISEASE W ST 11/01/2018 SATHISH SALOMON MD Ot I25.1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 ART W 11/01/2018 SATHISH SALOMON MD Ot K21.9 GASTRO-ESOPHAGEAL REFLUX DISEASE WITHOUT 11/01/2018 SATHISH SALOMON MD, Ot M46.1 SACROILIITIS, NOT ELSEWHERE CLASSIFIED 11/01/2018 SATHISH SALOMON MD Ot M48.061 SPINAL STENOSIS, LUMBAR REGION WITHOUT N 11/01/2018 SATHISH SALOMON MD Ot M54.16 RADICULOPATHY, LUMBAR REGION 11/01/2018 SATHISH SALOMON MD Ot N18.2 CHRONIC KIDNEY DISEASE, STAGE 2 (MILD) 11/01/2018 SATHISH SALOMON MD Ot Q61.3 POLYCYSTIC KIDNEY, UNSPECIFIED 11/01/2018 SATHISH SALOMON MD Ot Z79.4 INTERMEDIATE (CURRENT) USE OF INSULIN 11/01/2018 SATHISH SALOMON MD Ot Z79.82 INTERMEDIATE (CURRENT) USE OF ASPIRIN 11/01/2018 SATHISH SALOMON MD Ot Z79.899 OTHER SUSTAINABILITY PROJECT COORDINATOR (CURRENT) DRUG THERAPY 11/01/2018 SATHISH SALOMNO MD Ot Z88.0 ALLERGY STATUS TO PENICILLIN 11/01/2018 SATHISH SALOMON MD Ot Z95.5 PRESENCE OF CORONARY ANGIOPLASTY IMPLANT 11/12/2018 SATHISH SALOMON MD Ot E11.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 W DIABETIC TANK TESTER 11/12/2018 SATHISH SALOMON MD Ot E11.40 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 WITH DIABETIC N 11/12/2018 SATHISH SALOMON MD Ot E66.9 OBESITY, UNSPECIFIED 11/12/2018 SATHISH SALOMON MD Ot E78.2 MIXED HYPERLIPIDEMIA 11/12/2018 SATHISH SALOMON MD Ot G47.33 OBSTRUCTIVE SLEEP APNEA (ADULT) (PEDIATR 11/12/2018 SATHISH SALOMON MD Ot I12.9 HYPERTENSIVE CHRONIC KIDNEY DISEASE W ST 11/12/2018 SATHISH SALOMON MD, Ot I25.1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 ART W 11/12/2018 SATHISH SALOMON MD, Ot K21.9 GASTRO-ESOPHAGEAL REFLUX DISEASE WITHOUT 11/12/2018 SATHISH SALOMON MD, Ot M46.1 SACROILIITIS, NOT ELSEWHERE CLASSIFIED 11/12/2018 SATHISH SALOMON MD, Ot M48.061 SPINAL STENOSIS, LUMBAR REGION WITHOUT N 11/12/2018 SATHISH SALOMON MD, Ot M54.16 RADICULOPATHY, LUMBAR REGION 11/12/2018 SATHISH SALOMON MD, Ot N18.2 CHRONIC KIDNEY DISEASE, STAGE 2 (MILD) 11/12/2018 SATHISH SALOMON MD, Ot Q61.3 POLYCYSTIC KIDNEY, UNSPECIFIED 11/12/2018 SATHISH SALOMON MD, Ot Z68.36 BODY MASS INDEX (BMI) 36.0-36.9, ADULT 11/12/2018 SATHISH SALOMON MD, Ot Z79.4 INTERMEDIATE (CURRENT) USE OF INSULIN 11/12/2018 SATHISH SALOMON MD, Ot Z79.82 SUSTAINABILITY PROJECT COORDINATOR (CURRENT) USE OF ASPIRIN 11/12/2018 SATHISH SALOMON MD, Ot Z79.899 OTHER SUSTAINABILITY PROJECT COORDINATOR (CURRENT) DRUG THERAPY 11/12/2018 SATHISH SALOMON MD, Ot Z88.0 ALLERGY STATUS TO PENICILLIN 11/12/2018 SATHISH SALOMON MD, Ot Z95.5 PRESENCE OF CORONARY ANGIOPLASTY IMPLANT 12/01/2018 JANEEN CHAMPION DO Ot E11.65 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 WITH HYPERGLYCE 12/01/2018 JANEEN CHAMPION DO Ot E78.00 PURE HYPERCHOLESTEROLEMIA, UNSPECIFIED 12/01/2018 JANEEN CHAMPION DO Ot E78.1 PURE HYPERGLYCERIDEMIA 12/01/2018 JANEEN CHAMPION DO Ot Z00.00 ENCNTR FOR [...] measurement by glucometer (mass/volume) 170 mg/dL 70-110 Comprehensive metabolic panel - 08/06/18 08:45 Serum [...] 5.6 MEAN BLOOD GLUCOSE 174 % <=126 Complete blood count (CBC) with automated white blood cell (WBC) differential - 09/03/18 14:50 Blood leukocytes automated count (number/volume) 9.0 10*3/uL 4.3-11.0 Blood erythrocytes automated count (number/volume) 4.72 10*6/uL 4.35-5.85 Venous blood hemoglobin measurement (mass/volume) 14.0 g/dL 13.3-17.7 Blood hematocrit (volume fraction) 42 % 40-54 Automated erythrocyte mean corpuscular volume 88 [foz_us] 80-99 Automated erythrocyte mean corpuscular hemoglobin (mass per erythrocyte) 30 pg 25-34 Automated erythrocyte mean corpuscular hemoglobin concentration measurement ( mass/volume) 34 g/dL 32-36 Automated erythrocyte distribution width ratio 14.3 % 10.0-14.5 Automated blood platelet count (count/volume) 237 10*3/uL 130-400 Automated blood platelet mean volume measurement 9.3 [foz_us] 7.4-10.4 Automated blood neutrophils/100 leukocytes 76 % 42-75 Automated blood lymphocytes/100 leukocytes 16 % 12-44 Blood monocytes/100 leukocytes 7 % 0-12 Automated blood eosinophils/100 leukocytes 1 % 0-10 Automated blood basophils/100 leukocytes 0 % 0-10 Blood neutrophils automated count (number/volume) 6.9 10*3 1.8-7.8 Blood lymphocytes automated count (number/volume) 1.5 10*3 1.0-4.0 Blood monocytes automated count (number/volume) 0.6 10*3 0.0-1.0 Automated eosinophil count 0.1 10*3/uL 0.0-0.3 Automated blood basophil count (count/volume) 0.0 10*3/uL 0.0-0.1 Comprehensive metabolic panel - 09/03/18 14:50 Serum or plasma sodium measurement (moles/volume) 137 mmol/L 135-145 Serum or plasma potassium measurement (moles/volume) 5.8 mmol/L 3.6-5.0 Serum or plasma chloride measurement (moles/volume) 104 mmol/L 98-107 Carbon dioxide 20 mmol/L 21-32 Serum or plasma anion gap determination (moles/volume) 13 mmol/L 5-14 Serum or plasma urea nitrogen measurement (mass/volume) 14 mg/dL 7-18 Serum or plasma creatinine measurement (mass/volume) 0.98 mg/dL 0.60-1.30 Serum or plasma urea nitrogen/creatinine mass ratio 14 NRG Serum or plasma creatinine measurement with calculation of estimated glomerular filtration rate > NRG Serum or plasma glucose measurement (mass/volume) 144 mg/dL 70-105 Serum or plasma calcium measurement (mass/volume) 9.2 mg/dL 8.5-10.1 Serum or plasma total bilirubin measurement (mass/volume) 0.7 mg/dL 0.1-1.0 Serum or plasma alkaline phosphatase measurement (enzymatic activity/volume) 62 U/L 40-136 Serum or plasma aspartate aminotransferase measurement (enzymatic activity/ volume) 38 U/L 5-34 Serum or plasma alanine aminotransferase measurement (enzymatic activity/volume ) 32 U/L 0-55 Serum or plasma protein measurement (mass/volume) 7.8 g/dL 6.4-8.2 Serum or plasma albumin measurement (mass/volume) 4.6 g/dL 3.2-4.5 Magnesium - 09/03/18 14:50 Magnesium 2.7 mg/dL 1.8-2.4 Serum or plasma troponin i.cardiac measurement (mass/volume) - 09/03/18 14:50 Serum or plasma troponin i.cardiac measurement (mass/volume) < ng/ mL <0.028 Myoglobin, serum - 09/03/18 14:50 Myoglobin, serum 140.8 ng/mL 10.0-92.0 PT panel in platelet poor plasma by coagulation assay - 09/03/18 14:50 Prothrombin time (PT) in platelet poor plasma by coagulation assay 13.4 s 12.2-14.7 INR in platelet poor plasma or blood by coagulation assay 1.0 0.8-1.4 Activated partial thromboplastin time (aPTT) in platelet poor plasma bycoagulation assay - 09/03/18 14:50 Activated partial thromboplastin time (aPTT) in platelet poor plasma bycoagulation assay 29 s 24-35 Capillary blood glucose measurement by glucometer (mass/volume) - 09/03/18 20: 31 Capillary blood glucose measurement by glucometer (mass/volume) 184 mg/dL 70-110 Serum or plasma troponin i.cardiac measurement (mass/volume) - 09/03/18 20:50 Serum or plasma troponin i.cardiac measurement (mass/volume) < ng/ mL <0.028 Myoglobin, serum - 09/03/18 20:50 Myoglobin, serum 91.8 ng/mL 10.0-92.0 Capillary blood glucose measurement by glucometer (mass/volume) - 09/04/18 05: 09 Capillary blood glucose measurement by glucometer (mass/volume) 204 mg/dL 70-110 Complete blood count (CBC) with automated white blood cell (WBC) differential - 09/04/18 05:45 Blood leukocytes automated count (number/volume) 6.8 10*3/uL 4.3-11.0 Blood erythrocytes automated count (number/volume) 4.39 10*6/uL 4.35-5.85 Venous blood hemoglobin measurement (mass/volume) 13.1 g/dL 13.3-17.7 Blood hematocrit (volume fraction) 39 % 40-54 Automated erythrocyte mean corpuscular volume 88 [foz_us] 80-99 Automated erythrocyte mean corpuscular hemoglobin (mass per erythrocyte) 30 pg 25-34 Automated erythrocyte mean corpuscular hemoglobin concentration measurement ( mass/volume) 34 g/dL 32-36 Automated erythrocyte distribution width ratio 14.4 % 10.0-14.5 Automated blood platelet count (count/volume) 222 10*3/uL 130-400 Automated blood platelet mean volume measurement 9.5 [foz_us] 7.4-10.4 Automated blood neutrophils/100 leukocytes 69 % 42-75 Automated blood lymphocytes/100 leukocytes 21 % 12-44 Blood monocytes/100 leukocytes 8 % 0-12 Automated blood eosinophils/100 leukocytes 2 % 0-10 Automated blood basophils/100 leukocytes 0 % 0-10 Blood neutrophils automated count (number/volume) 4.7 10*3 1.8-7.8 Blood lymphocytes automated count (number/volume) 1.4 10*3 1.0-4.0 Blood monocytes automated count (number/volume) 0.6 10*3 0.0-1.0 Automated eosinophil count 0.1 10*3/uL 0.0-0.3 Automated blood basophil count (count/volume) 0.0 10*3/uL 0.0-0.1 Comprehensive metabolic panel - 09/04/18 05:45 Serum or plasma sodium measurement (moles/volume) 139 mmol/L 135-145 Serum or plasma potassium measurement (moles/volume) 4.0 mmol/L 3.6-5.0 Serum or plasma chloride measurement (moles/volume) 107 mmol/L 98-107 Carbon dioxide 21 mmol/L 21-32 Serum or plasma anion gap determination (moles/volume) 11 mmol/L 5-14 Serum or plasma urea nitrogen measurement (mass/volume) 15 mg/dL 7-18 Serum or plasma creatinine measurement (mass/volume) 0.83 mg/dL 0.60-1.30 Serum or plasma urea nitrogen/creatinine mass ratio 18 NRG Serum or plasma creatinine measurement with calculation of estimated glomerular filtration rate > NRG Serum or plasma glucose measurement (mass/volume) 187 mg/dL 70-105 Serum or plasma calcium measurement (mass/volume) 8.7 mg/dL 8.5-10.1 Serum or plasma total bilirubin measurement (mass/volume) 1.1 mg/dL 0.1-1.0 Serum or plasma alkaline phosphatase measurement (enzymatic activity/volume) 58 U/L 40-136 Serum or plasma aspartate aminotransferase measurement (enzymatic activity/ volume) 17 U/L 5-34 Serum or plasma alanine aminotransferase measurement (enzymatic activity/volume ) 26 U/L 0-55 Serum or plasma protein measurement (mass/volume) 6.1 g/dL 6.4-8.2 Serum or plasma albumin measurement (mass/volume) 4.0 g/dL 3.2-4.5 CALCIUM CORRECTED 8.7 mg/dL 8.5-10.1 Lipid 1996 panel - 09/04/18 05:45 Serum or plasma triglyceride measurement (mass/volume) 68 mg/dL <150 Serum or plasma cholesterol measurement (mass/volume) 90 mg/dL < 200 Serum or plasma cholesterol in HDL measurement (mass/volume) 37 mg/ dL 40-60 Cholesterol in LDL [mass/volume] in serum or plasma by direct assay 42 mg/dL 1-129 Serum or plasma cholesterol in VLDL measurement (mass/volume) 14 mg/ dL 5-40 Capillary blood glucose measurement by glucometer (mass/volume) - 09/04/18 10: 40 Capillary blood glucose measurement by glucometer (mass/volume) 195 mg/dL 70-110 Capillary blood glucose measurement by glucometer (mass/volume) - 10/19/18 06: 20 Capillary blood glucose measurement by glucometer (mass/volume) 173 mg/dL 70-110 Methicillin resistant Staphylococcus aureus (MRSA) screening culture - 06:30 Methicillin resistant Staphylococcus aureus (MRSA) screening culture NEG NRG Capillary blood glucose measurement by glucometer (mass/volume) - 10/19/18 11: 28 Capillary blood glucose measurement by glucometer (mass/volume) 228 mg/dL 70-110 Capillary blood glucose measurement by glucometer (mass/volume) - 10/19/18 16: 16 Capillary blood glucose measurement by glucometer (mass/volume) 215 mg/dL 70-110 Capillary blood glucose measurement by glucometer (mass/volume) - 10/19/18 20: 22 Capillary blood glucose measurement by glucometer (mass/volume) 192 mg/dL 70-110 Capillary blood glucose measurement by glucometer (mass/volume) - 10/20/18 05: 42 Capillary blood glucose measurement by glucometer (mass/volume) 182 mg/dL 70-110 Complete blood count (CBC) with automated white blood cell (WBC) differential - 11/30/18 08:35 Blood leukocytes automated count (number/volume) 6.5 10*3/uL 4.3-11.0 Blood erythrocytes automated count (number/volume) 4.56 10*6/uL 4.35-5.85 Venous blood hemoglobin measurement (mass/volume) 13.7 g/dL 13.3-17.7 Blood hematocrit (volume fraction) 40 % 40-54 Automated erythrocyte mean corpuscular volume 88 [foz_us] 80-99 Automated erythrocyte mean corpuscular hemoglobin (mass per erythrocyte) 30 pg 25-34 Automated erythrocyte mean corpuscular hemoglobin concentration measurement ( mass/volume) 34 g/dL 32-36 Automated erythrocyte distribution width ratio 14.0 % 10.0-14.5 Automated blood platelet count (count/volume) 237 10*3/uL 130-400 Automated blood platelet mean volume measurement 8.9 [foz_us] 7.4-10.4 Automated blood neutrophils/100 leukocytes 67 % 42-75 Automated blood lymphocytes/100 leukocytes 23 % 12-44 Blood monocytes/100 leukocytes 9 % 0-12 Automated blood eosinophils/100 leukocytes 2 % 0-10 Automated blood basophils/100 leukocytes 0 % 0-10 Blood neutrophils automated count (number/volume) 4.4 10*3 1.8-7.8 Blood lymphocytes automated count (number/volume) 1.5 10*3 1.0-4.0 Blood monocytes automated count (number/volume) 0.6 10*3 0.0-1.0 Automated eosinophil count 0.1 10*3/uL 0.0-0.3 Automated blood basophil count (count/volume) 0.0 10*3/uL 0.0-0.1 Comprehensive metabolic panel - 11/30/18 08:35 Serum or plasma sodium measurement (moles/volume) 141 mmol/L 135-145 Serum or plasma potassium measurement (moles/volume) 4.0 mmol/L 3.6-5.0 Serum or plasma chloride measurement (moles/volume) 110 mmol/L 98-107 Carbon dioxide 22 mmol/L 21-32 Serum or plasma anion gap determination (moles/volume) 9 mmol/L 5-14 Serum or plasma urea nitrogen measurement (mass/volume) 14 mg/dL 7-18 Serum or plasma creatinine measurement (mass/volume) 0.82 mg/dL 0.60-1.30 Serum or plasma urea nitrogen/creatinine mass ratio 17 NRG Serum or plasma creatinine measurement with calculation of estimated glomerular filtration rate > NRG Serum or plasma glucose measurement (mass/volume) 210 mg/dL 70-105 Serum or plasma calcium measurement (mass/volume) 8.9 mg/dL 8.5-10.1 Serum or plasma total bilirubin measurement (mass/volume) 0.5 mg/dL 0.1-1.0 Serum or plasma alkaline phosphatase measurement (enzymatic activity/volume) 69 U/L 40-136 Serum or plasma aspartate aminotransferase measurement (enzymatic activity/ volume) 12 U/L 5-34 Serum or plasma alanine aminotransferase measurement (enzymatic activity/volume ) 27 U/L 0-55 Serum or plasma protein measurement (mass/volume) 6.5 g/dL 6.4-8.2 Serum or plasma albumin measurement (mass/volume) 4.3 g/dL 3.2-4.5 CALCIUM CORRECTED 8.7 mg/dL 8.5-10.1 Lipid 1996 panel - 11/30/18 08:35 Serum or plasma triglyceride measurement (mass/volume) 50 mg/dL <150 Serum or plasma cholesterol measurement (mass/volume) 97 mg/dL < 200 Serum or plasma cholesterol in HDL measurement (mass/volume) 41 mg/ dL 40-60 Cholesterol in LDL [mass/volume] in serum or plasma by direct assay 44 mg/dL 1-129 Serum or plasma cholesterol in VLDL measurement (mass/volume) 10 mg/ dL 5-40 THYROID STIMULATING HORMONE - 11/30/18 08:35 THYROID STIMULATING HORMONE 0.62 u[iU]/mL 0.35-4.94 Hemoglobin A1c - 11/30/18 08:35 Blood hemoglobin A1C measurement (mass/volume) 8.6 % 4.0- 5.6 MEAN BLOOD GLUCOSE 200 % <=126 Encounters ACCT No. Visit Date/Time Discharge Status Pt. Type Provider Facility Loc./Unit Complaint [id number] 11/24/2018 18:04:16 11/24/2018 23:59:59 CLS Outpatient Licha Kingen [id number] 12/26/2017 17:12:32 12/26/2017 23:59:59 CLS Outpatient Nancy Carrero [id number] 08/06/2017 16:44:48 08/06/2017 23:59:59 CLS Outpatient Nancy Carrero [id number] 06/24/2017 16:03:20 06/24/2017 23:59:59 CLS Outpatient Nancy Carrero [id number] 04/20/2016 11:10:47 04/20/2016 23:59:59 CLS Outpatient SaulTej [id number] 03/21/2014 20:33:18 03/21/2014 23:59:59 CLS Outpatient Nancy Carrero [id number] 12/06/2013 16:40:35 12/06/2013 23:59:59 CLS Outpatient Chante Thompson [id number] 10/20/2013 15:46:00 10/20/2013 23:59:59 CLS Outpatient Walker, Chante [id number] 09/23/2013 09:06:24 09/23/2013 23:59:59 CLS Outpatient Walker, Chante [id number] 09/16/2013 09:45:27 09/16/2013 23:59:59 CLS Outpatient Walker, Chante [id number] 09/02/2013 09:50:02 09/02/2013 23:59:59 CLS Outpatient Walker, Chante [id number] 08/06/2013 09:20:07 08/06/2013 23:59:59 CLS Outpatient Walker, Chante [id number] 11/30/2018 08:29:00 11/30/2018 23:59:59 CLS Outpatient JANEEN CHAMPION DO [facility] LAB E11.65,Z00.00 [id number] 11/30/2018 08:27:00 11/30/2018 23:59:59 CLS Outpatient FADY SORENSEN MD [facility] RAD RENAL CYSTS,BILAT [id number] 10/19/2018 05:52:00 10/20/2018 09:30:00 DIS [facility] [id number] 10/12/2018 08:58:00 10/12/2018 10:44:00 DIS Outpatient SATHISH SALOMON MD [facility] PREOP PLACEMENT PERMANENT SPINAL CORD STIMULATOR [id number] 09/16/2018 05:35:00 09/16/2018 11:48:00 DIS Outpatient SATHISH SALOMON MD [facility] PREOP PLACEMENT PERMANENT SPINAL CORD STIMULATOR [id number] 2018 17:45:00 09/04/2018 16:30:00 DIS Inpatient CHAMPION DO, JANEEN [facility] 4TH CHEST PAIN [id number] 08/06/2018 08:35:00 08/06/2018 23:59:59 CLS Outpatient CHAMPION DO, JANEEN [facility] LAB E11.65 [id number] 06/17/2018 09:31:00 06/17/2018 23:59:59 CLS Outpatient FADY SORENSEN MD [facility] LAB HYPERTENSION,CKD [id number] 05/18/2018 08:31:00 05/18/2018 23:59:59 CLS Outpatient Almaz SORENSEN MD [facility] CARD BRADYCARDIA,CAD,HTN, OBESITY [id number] 01/08/2018 13:15:00 01/08/2018 23:59:59 CLS Outpatient FADY SORENSEN MD [facility] RAD HYPERTENSION-BENIGN, CHRONIC KIDNEY DISEASE, DM2 [id number] 12/10/2017 18:20:00 12/11/2017 18:00:00 DIS Outpatient CHAMPION DO, JANEEN [facility] CATH CHEST PAIN, CAD [id number] 11/18/2017 08:39:00 11/18/2017 23:59:59 CLS Outpatient Almaz SORENSEN MD [facility] CARD I25.10 CAD [id number] 09/15/2017 12:33:00 09/15/2017 23:59:59 CLS Outpatient Almaz SORENSEN MD [facility] CARD 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 [id number] 08/21/2017 12:30:00 08/21/2017 23:59:59 CLS Preadmit Almaz SORENSEN MD [facility] CARD CHEST TIGHTNESS R07.89 [id number] 06/12/2017 08:01:00 08/20/2017 00:01:00 DIS Outpatient Almaz SORENSEN MD [facility] CARD CHEST TIGHTNESS R07.89 [id number] 06/18/2017 15:30:00 06/18/2017 23:59:59 CLS Preadmit Almaz SORENSEN MD [facility] CARD BRADYCARDIA [id number] 05/15/2017 14:53:00 05/17/2017 00:01:00 DIS Outpatient Almaz SORENSEN MD [facility] CARD CHEST TIGHTNESS R07.89 [id number] 05/13/2017 17:51:00 05/13/2017 18:09:00 DIS BRI Russell MD [facility] ER MID BACK PAIN [id number] 05/12/2017 10:40:00 05/12/2017 23:59:59 CLS Outpatient Almaz SORENSEN MD [facility] CARD BRADYCARDIA [id number] 05/12/2017 10:38:00 05/12/2017 23:59:59 CLS Outpatient Almaz SORENSEN MD [facility] CARD CHEST TIGHTNESS R07.89 [id number] 05/01/2017 16:45:00 05/02/2017 16:45:00 DIS Inpatient JANEEN CHAMPION DO [facility] ICU CHEST PAIN POST RCA STENT [id number] 04/25/2017 20:20:00 04/27/2017 13:26:00 DIS Outpatient JANEEN CHAMPION DO [facility] CATH CHEST PAIN [id number] 04/23/2017 15:32:00 04/23/2017 23:59:59 CLS Preadmit EDU PEDRAZA, Almaz ACOSTA [facility] CARD CHEST TIGHTNESS [id number] 05/17/2016 09:01:00 05/17/2016 11:35:00 DIS Emergency JORDAN GRANADOS APRN [facility] ER POST NECK SURGERY [id number] 04/13/2015 09:03:00 04/13/2015 23:59:59 CLS Outpatient AIME PEDRAZA, SATHISH Schaffer [facility] RAD RADICULOPATHY [id number] 12/13/2014 06:44:00 12/13/2014 08:44:00 DIS Emergency DONITA PEDRAZA, BRI [place] [facility] ER RT SIDE ABD PAIN [id number] 01/20/2014 15:48:00 04/20/2014 00:01:00 DIS Outpatient JANEEN CHAMPION DO [facility] CARD PALP [id number] 03/17/2014 15:36:00 03/17/2014 23:59:59 CLS Outpatient ANTONIO PEDRAZA, JUNE Valdivia [facility] RAD HEADACHE SINUS PRESSURE [id number] 04/03/2018 06:01:00 Document Registration [id number] 04/21/2014 15:30:00 Document Registration [id number] 12/12/2011 07:45:00 Document Registration [id number] 11/13/2011 15:27:00 Document Registration [id number] 10/21/2011 11:58:00 Document Registration [id number] 10/17/2011 10:40:00 Document Registration [id number] 10/16/2011 10:24:00 Document Registration [id number] 09/25/2011 12:21:00 Document Registration [id number] 08/09/2011 20:48:00 Document Registration [id number] 06/01/2011 18:16:00 Document Registration
[2018-12-09] MEDS ORDERED: ONDA8TAB13 PO (15:26)
--- NOTE | 2018-12-09 15:30 | NUR ---
PATIENT HAD A LIST IN HIS PHONE AND VERIFIED HOW HE TAKES EACH MEDICATION. I COMPARED IT WITH THE EXT MED HX.
[2018-12-10] VITALS: BP 139/82
[2018-12-10 03:48] VITALS: BP 118/71
[2018-12-10] MEDS ORDERED: NS IV 1000 ML 0 ML ONE (06:07)
[2018-12-10] MEDS ORDERED: HEParin (CATH LAB) 2,000 ML IV ONE (06:07)
[2018-12-10] MEDS ORDERED: LIDOCAINE 1% INJ 20 ML 20 ML VIAL ONE (06:07)
[2018-12-10] MEDS ORDERED: MIDAZOLAM 5 MG/5 ML (VERSED) VIAL ONE (06:14)
[2018-12-10] MEDS ORDERED: fentaNYL INJECTION 100 MCG/2 ML AMP ONE ×2 (06:14→07:08)
[2018-12-10 06:18] LABS: BASOPHILS % (AUTO) 0 % (0-10); EOSINOPHILS # (AUTO) 0.1 10^3/uL (0.0-0.3); EOSINOPHILS % (AUTO) 2 % (0-10); HEMATOCRIT 40 % (40-54); HEMOGLOBIN 13.3 G/DL (13.3-17.7); LYMPHOCYTES # (AUTO) 1.4 X 10^3 (1.0-4.0); LYMPHOCYTES % (AUTO) 19 % (12-44); MEAN CORPUSCULAR HEMOGLOBIN 29 PG (25-34); MEAN CORPUSCULAR HGB CONC 34 G/DL (32-36); MEAN CORPUSCULAR VOLUME 87 FL (80-99); MEAN PLATELET VOLUME 9.3 FL (7.4-10.4); MONOCYTES # (AUTO) 0.6 X 10^3 (0.0-1.0); MONOCYTES % (AUTO) 8 % (0-12); NEUTROPHILS # (AUTO) 5.4 X 10^3 (1.8-7.8); NEUTROPHILS % (AUTO) 72 % (42-75); PLATELET COUNT 254 10^3/uL (130-400); RED CELL DISTRIBUTION WIDTH 13.9 % (10.0-14.5); WHITE BLOOD COUNT 7.5 10^3/uL (4.3-11.0)
[2018-12-10] MEDS ORDERED: NS IV 1000 ML 1,000 ML ONE (06:26)
[2018-12-10 06:37] LABS: PROTHROMBIN TIME PATIENT 13.9 SEC (12.2-14.7)
[2018-12-10] MEDS ORDERED: VERAPAMIL 5 MG/2 ML (CALAN) VIAL IV ONE (06:37)
[2018-12-10] MEDS ORDERED: NITRO DRIP 25000 MCG/D5W 250 ML IV ONE (06:37)
[2018-12-10] MEDS ORDERED: HEParin 1000 UNIT/ML (10ML VIAL) FOR BOLUS ONE (06:37)
[2018-12-10 06:39] LABS: ALANINE AMINOTRANSFERASE 30 U/L (0-55); ALBUMIN 4.2 GM/DL (3.2-4.5); ALKALINE PHOSPHATASE 63 U/L (40-136); BILIRUBIN,TOTAL 0.8 MG/DL (0.1-1.0); BUN/CREATININE RATIO 20; CALCIUM 9.2 MG/DL (8.5-10.1); CARBON DIOXIDE 20 MMOL/L (21-32); CHLORIDE 107 MMOL/L (98-107); CREATININE SERUM 0.84 MG/DL (0.60-1.30); GFR ESTIMATED > 60; GLUCOSE 227 MG/DL (70-105); POTASSIUM 4.2 MMOL/L (3.6-5.0); SODIUM 138 MMOL/L (135-145); TOTAL PROTEIN 6.4 GM/DL (6.4-8.2)
[2018-12-10 08:00] VITALS: BP 121/75
--- NOTE | 2018-12-10 08:34 | Cardiac Procedure Note-CS/ASA ---
Pre-Procedure Note Pre-Op Procedure Note H&P Reviewed The H&P was reviewed, patient examined and no changes noted. Date H&P Reviewed: Dec 10, 2018 Time H&P Reviewed: 07:00 Conscious Sedation Pre-Proced Time 07:00 ASA Score 3 For ASA 3 and 4: Consider anesthesia and medical clearance. Also, for patients with a history of failed moderate sedation consider anesthesia. Airway Lungs Heart ASA score ASA 1: a normal healthy patient ASA 2: a patient with a mild systemic disease (mid diabetes, controlled hypertension, obesity ASA 3: a patient with a severe systemic disease that limits activity (angina , COPD, prior Myocardial infarction) ASA 4: a patient with an incapacitating disease that is a constant threat to life (CHF, renal failure) ASA 5: a moribund patient not expected to survive 24 hrs. (ruptured aneurysm) ASA 6: a declared brain- patient whose organs are being harvested. For emergent operations, add the letter E after the classification Mallampati Classification Grade 1 Sedation Plan Analgesia, Amnesia, Plan communicated to team members, Discussed options with patient/fam, Discussed risks with patient/fam The patient is an appropriate candidate to undergo the planned procedure, sedation, and anesthesia. The patient immediately re-assessed prior to indication. Almaz SORENSEN MD Dec 10, 2018 8:34 am
--- NOTE | 2018-12-10 08:35 | Cardiology Progress Note ---
Cardiology SOAP Progress Note Subjective: No further chest pain. Objective: I&O/Vital Signs 12/09/18 12/09/18 12/10/18 12/10/18 20:55 21:55 00:00 03:48 Temp 97.9 97.5 97.9 Pulse 72 76 72 68 Resp 20 20 20 B/P (MAP) 134/81 (98) 141/80 (100) 139/82 (101) 118/71 (87) Pulse Ox 96 97 97 97 O2 Delivery Room Air Room Air Room Air NIV CPAP 12/10/18 07:00 Pulse 64 12/10/18 00:00 Intake Total 740 ml Balance 740 ml Weight (Pounds): 3 Weight (Ounces): 3.0 Weight (Calculated Kilograms): 1.500992 Constitutional: appears stated age, AAO x 3; No apparent distress; well- developed, well-nourished Respiratory: No accessory muscle use, No respiratory distress, No chest tender , No chest expansion is symmetric; chest is bilaterally symmetric; No lungs clear to percussion; lungs clear to auscultation; No crackles, No rhonchi, No rales, No stridor, No wheezing, No pleural rub, No other Cardiovascular: regular rate-rhythm; No irregularly irregular, No extra beats, No parasternal heave is noted, No JVD, No edema, No bradycardia, No tachycardia , No point of maximal impulse, No cardiac thrills are palpable; S1 and S2; No gallop/S3, No gallop/S4, No diastolic murmur, No systolic murmur, No friction rub, No click, No other Gastrointestional: No tender, No soft, No round, No distended, No pulsatile mass, No organomegaly, No guarding, No rebound, No tenderness, No hernia, No mass, No audible bowel sounds, No abnormal bowel sounds, No abdominal bruits, No spleenomegaly, No other Extremities: No normal range of motion, No non-tender, No normal inspection, No pedal edema, No calf tenderness, No normal capillary refill, No pelvis stable , No calf tenderness, No inflammation, No pedal edema, No slow capillary refill , No swelling, No other, No abrasion, No clubbing, No cyanosis, No ecchymosis, No laceration, No no lower extremity edema bilateral, No significant edema, No tenderness, No wound Neurologic/Psychiatric: no motor/sensory deficits, alert, normal mood/affect, oriented x 3, power is 5/5 both on sides Skin: No normal color, No warm/dry, No cyanosis, No cool, No diaphoresis, No damp, No ecchymosis, No jaundice, No mottled, No pallor, No rash, No tattoos/ piercings, No ulcerations, No rash on exposed areas, No ulcerations on exposed areas, No other Results/Procedures: Labs Laboratory Tests 12/09/18 15:00: Troponin I < 0.028 12/09/18 16:00: Glucometer 167H 12/09/18 20:07: Glucometer 209H 12/09/18 20:55: Troponin I < 0.028 12/10/18 05:45: White Blood Count 7.5, Red Blood Count 4.54, Hemoglobin 13.3, Hematocrit 40, Mean Corpuscular Volume 87, Mean Corpuscular Hemoglobin 29, Mean Corpuscular Hemoglobin Concent 34, Red Cell Distribution Width 13.9, Platelet Count 254, Mean Platelet Volume 9.3, Neutrophils (%) (Auto) 72, Lymphocytes (%) (Auto) 19, Monocytes (%) (Auto) 8, Eosinophils (%) (Auto) 2, Basophils (%) (Auto) 0, Neutrophils # (Auto) 5.4, Lymphocytes # (Auto) 1.4, Monocytes # (Auto) 0.6, Eosinophils # (Auto) 0.1, Basophils # (Auto) 0.0, Prothrombin Time 13.9, INR Comment 1.0, Sodium Level 138, Potassium Level 4.2, Chloride Level 107, Carbon Dioxide Level 20L, Anion Gap 11, Blood Urea Nitrogen 17, Creatinine 0.84, Estimat Glomerular Filtration Rate > 60, BUN/Creatinine Ratio 20, Glucose Level 227H, Calcium Level 9.2, Corrected Calcium 9.0, Total Bilirubin 0.8, Aspartate Amino Transf (AST/SGOT) 14, Alanine Aminotransferase (ALT/SGPT) 30, Alkaline Phosphatase 63, Total Protein 6.4, Albumin 4.2 12/10/18 06:03: Glucometer 219H A/P: Assessment/Dx: Unstable angina, Hyperlipidemia, Hypertension, Sinus bradycardia, History of paroxysmal atrial tachycardia. Plan: This is a 63-year-old gentleman who has been transferred for prolonged episode of chest pain. The patient has history of diabetes, hypertension, he denies hypercholesterolemia and smoking. He has family history of premature coronary artery disease. His mother had an MD at an early age. He complained previously of bradycardia and chest tightness usually at the same time. we had requested echocardiogram and nuclear stress testing. However before he could get a nuclear stress test he came with a prolonged episode of chest pain to the hospital. Coronary angiography was performed by Dr. Yoon. A 70 percent stenosis was seen in the mid RCA which was treated with a drug- eluting stent Xience Alpine 4.0x15mm. This was done on 04/26/2017. echocardiogram done on 05/12/2017 showed normal LV function. No significant valvular heart disease. Aorta is mildly dilated. Follow-up imaging will be recommended in 6 months. He presented again with mild discomfort and had a nuclear stress test on 05/02/2017 which did not show any perfusion abnormalities. A Holter monitor was done on 05/12/2017 which shows sinus rhythm with variable ventricular rate. Minimum heart rate of 41 bpm and maximum heart rate of 109 BPM. Lowest heart rate of 41 bpm was early in the morning when the patient was sleeping. There were 11,377 PACs and 606 PVCs. No other arrhythmias were noted. Symptoms of chest discomfort was correlated with sinus rhythm and PACs. CAD: Prolonged episode of chest pain. Negative serial troponin and EKG. Coronary angiography today. Request echocardiogram. Continue aspirin. I will restart Plavix. Patient will also continue statin. Coronary angiography on 12/11/2017 shows normal stent in the RCA. Patent left main, LAD and left circumflex artery. LVEDP 16 mmHg. Bradycardia: Improved heart rate. Previously Lowest heart rate of 41 BPM was noted during sleep during Holter monitor. Due to bradycardia he is not on a beta joaquim. Frequent PACs and PVCs. However heart rate has improved significantly and we will start low-dose of beta joaquim. We'll start Toprol- XL 12.5 mg daily. Hypertension: Mild elevated. If consistently blood pressure is over 145 mmHg we will consider increasing amlodipine. Salt restriction was recommended. Continue lisinopril. Continue torsemide, Aldactone and potassium supplementation, we had discontinued all 3 medications after his last coronary angiography on 12/11/2017. Hyperlipidemia: On 02/25/2017 the patient's total cholesterol was 149, triglyceride was 85, HDL 35, LDL 97. Based on the current ACC/AHA guidelines his risk of stroke and CAD is 25 percent at 10 years. Therefore it is recommended that he starts aspirin, and high intensity statin. Previously I started him on Lipitor 40 mg daily. He will require lipid profile in the near future. History of Dilated aorta: Previously Aortic root diameter 4.1 cm. repeat echocardiogram in November 2017 shows an aortic root of 3.8 cm which is within normal limits. Repeat in May 2018. Patient has diabetes. Diabetes education was done especially diet and exercise. Paroxysmal atrial tachycardia. Event monitor done in April 2017 showed a brief episode of PAT at 155 BPM. Patient will continue current medical therapy. However if he continues to have recurrent palpitations I will recommend implantable loop recorder for atrial fibrillation surveillance. Left leg discomfort: This could be claudication equivalent or secondary to his vertebral disc problem. However the patient does have diabetes and CAD therefore is at risk for PAD. AGGIE were negative. Unlikely severe PAD. Expanded volume plasma hypertension: Diagnosed at [facility]. He was started on torsemide, Aldactone and potassium supplementation. I had discontinued all 3 after his last coronary angiography on 12/11/2017. However all 3 were restarted previously. Thank you for your consultation. Please call me if you have any questions. Miriam Coker MD, FACP, FACC, FSCAI, FHRS, CCDS Interventional Cardiology Cardiac Electrophysiology Vascular Medicine and Endovascular Interventions Almaz COKER MD Dec 10, 2018 8:35 am
[2018-12-10] MEDS ORDERED: NS IV 1000 ML 1,000 ML IV SCH (08:36)
[2018-12-10] MEDS ORDERED: CLOP75TA69 PO (08:37)
--- NOTE | 2018-12-10 08:38 | Discharge Inst-Post CATH ---
Discharge Inst-CATH/EP Post Cardiac Cath/EP D/C Inst Follow Up/Plan Dr. Coker in 2 months. <b>CARDIAC CATH/EP PROCEDURE DISCHARGE INSTRUCTIONS</b> Cardiac Rehab Please be expecting a follow up call from Cardiac Rehab within in one week. ACTIVITY * Go Home directly and rest. * Limit activity of the leg (or wrist if it was used) for 7 days including aerobics, swimming, jogging, bicycling, etc. * Restrict stair-climbing for 7 days if possible, if not, climb up with your non -cath leg, then bring together on the same step. * Avoid lifting, pushing, pulling or excessive movement of the affected extremity for 7 days. * Customary sexual activity may be resumed after 2 days-use caution not to use a position that strains or causes pain to the affected extremity. * No driving for 24 hours. * NO SMOKING. * Avoid straining for bowel movements for 7 days. * Gentle walking on level ground is allowed. * Returning to work will depend on the type of procedure and the results. Your doctor will discuss this with you. CALL YOUR DOCTOR FOR ANY OF THE FOLLOWING: *If bleeding from the puncture site occurs- Apply gentle pressure to site with clean cloth and call your doctor or EMS. * If a knot or lump forms under the skin, increases in size, or causes pain. * If bruising appears to be worsening or moving further down your leg instead of disappearing. * Temperature above 101 F. CARE OF YOUR GROIN INCISION; * Bruising or purple discoloration of the skin near the puncture site is common. * You may shower only, no bathtub bathing for 5 days. Be careful to avoid slipping as your leg may feel stiff. * If a closure device was used on your femoral artery, please see the attached guide regarding care of the device and your leg. * Leave dressing on FOR 24 hours. CARE OF YOUR WRIST INCISION; * Bruising or purple discoloration of the skin near the puncture site is common. * You may shower. * DO NOT submerge wrist. * Leave dressing on FOR 24 hours. Almaz COKER MD Dec 10, 2018 8:38 am
--- NOTE | 2018-12-10 08:39 | Cardiology Discharge Summary ---
Diagnosis/Chief Complaint Date of Admission Dec 09, 2018 at 13:15 Date of Discharge 12/10/2018 Admission Diagnosis Unstable angina Final/Discharge Diagnosis patent stent. Chief Complaint/HPI Chief Complaint/HPI This is a 61-year-old gentleman who has been transferred for prolonged episode of chest pain. The patient has history of diabetes, hypertension, he denies hypercholesterolemia and smoking. He has family history of premature coronary artery disease. His mother had an OK at an early age. He complains of bradycardia and chest tightness usually at the same time. we had requested echocardiogram and nuclear stress testing. However before he could get a nuclear stress test he came with a prolonged episode of chest pain to the hospital. Coronary angiography was performed by Dr. Yoon. A 70 percent stenosis was seen in the mid RCA which was treated with a drug-eluting stent. This was done on 04/26/2017. He presented again with mild discomfort and had a nuclear stress test on 05/02/2017 which did not show any perfusion abnormalities. A Holter monitor was done on 05/12/2017 which shows sinus rhythm with variable ventricular rate. Minimum heart rate of 41 bpm and maximum heart rate of 109 BPM. Lowest heart rate of 41 bpm was early in the morning when the patient was sleeping. There were 11,377 PACs and 606 PVCs. No other arrhythmias were noted. Symptoms of chest discomfort was correlated with sinus rhythm and PACs. Discharge Summary Procedures Coronary angiography which revealed patent stent and no significant CAD. Discharge Physical Examination Unremarkable. Hospital Course Was the Problem List Reviewed?: Yes Unremarkable. Pending Labs Laboratory Tests 12/10/18 05:45: White Blood Count 7.5, Red Blood Count 4.54, Hemoglobin 13.3, Hematocrit 40, Mean Corpuscular Volume 87, Mean Corpuscular Hemoglobin 29, Mean Corpuscular Hemoglobin Concent 34, Red Cell Distribution Width 13.9, Platelet Count 254, Mean Platelet Volume 9.3, Neutrophils (%) (Auto) 72, Lymphocytes (%) (Auto) 19, Monocytes (%) (Auto) 8, Eosinophils (%) (Auto) 2, Basophils (%) (Auto) 0, Neutrophils # (Auto) 5.4, Lymphocytes # (Auto) 1.4, Monocytes # (Auto) 0.6, Eosinophils # (Auto) 0.1, Basophils # (Auto) 0.0, Prothrombin Time 13.9, INR Comment 1.0, Sodium Level 138, Potassium Level 4.2, Chloride Level 107, Carbon Dioxide Level 20, Anion Gap 11, Blood Urea Nitrogen 17, Creatinine 0.84, Estimat Glomerular Filtration Rate > 60, BUN/Creatinine Ratio 20, Glucose Level 227, Calcium Level 9.2, Corrected Calcium 9.0, Total Bilirubin 0.8, Aspartate Amino Transf (AST/SGOT) 14, Alanine Aminotransferase (ALT/SGPT) 30, Alkaline Phosphatase 63, Total Protein 6.4, Albumin 4.2 12/10/18 06:03: Glucometer 219 Discussion & Recommendations Discussion Discussed at length with the patient. Discharge took over 30 minutes to complete. We will discharge the patient on aspirin and Plavix. Noncardiac cause of chest pain. I will see the patient in the office in a couple of months. Healthy living was emphasized. Compliance with medication was emphasized. Discharge instructions were discussed. Follow up appt.: Dr. Coker in 2 months. Dicharge Diet: Cardiac Diet Activity as Tolerated: Yes Home Medications Reviewed patient Home Medication Reconciliation performed by pharmacy medication reconciliations autobody technician and/or nursing. Patients Allergies have been reviewed. Discharge Home Medications: Reviewed and agree with Discharge Medication list on patient's Discharge Instruction sheet Condition at discharge Stable Instructions to patient/family Dr. Coker in 2 months. Clinical Quality Measures DVT/VTE Risk/Contraindication: Risk Factor Score Per Nursin RFS Level Per Nursing on Admit: 4+=Very High Almaz COKER MD Dec 10, 2018 8:39 am
[2018-12-10] MEDS ORDERED: PATIENT MAY USE OWN MEDS, ALL PO SCH (08:45)
[2018-12-10] MEDS ORDERED: ASPIRIN E.C. 81 MG (ECOTRIN) TAB PO SCH (09:00)
[2018-12-10] MEDS ORDERED: CLOPIDOGREL 75 MG (PLAVIX) TABLET PO SCH (09:00)
--- NOTE | 2018-12-10 09:30 | Coronary Angiography Report ---
Coronary Angiography Report DATE OF PROCEDURE: 12/10/18 INDICATION: Unstable angina, previous PCI. PREOPERATIVE DIAGNOSIS: Unstable angina, previous PCI. POSTOPERATIVE DIAGNOSIS: Patent stent, no significant CAD. HISTORY: This is a 63-year-old gentleman with previous PCI to RCA in 2017. Plavix was stopped in 2018. He presented with a prolonged episode of chest pain with negative serial enzymes. His chest pain was severe and very similar to his previous chest pain. Therefore, the patient was scheduled for coronary angiography. PROCEDURES PERFORMED: 1.Coronary angiography. 2.Left heart catheterization. COMPLICATIONS: None. SPECIMENS: None. ESTIMATED BLOOD LOSS: 10 mL ANESTHESIA: Conscious sedation ANTICOAGULATION: IV heparin CONTRAST: 50 mL. FLUOROSCOPY: 2.8 minutes. FLOUROSCOPY DOSE: 674 mgy. PROCEDURE DETAILS: The patient is a 63 male and was brought to the cath lab manager after informed consent was taken. All the risks and complications were explained in detail; this included the risk of bleeding, vascular damage, stroke , [place] and even . The patient was draped and prepped in the usual sterile fashion. Access was gained in the right radial artery with a 6 [place] sheath. Coronary angiography and left heart catheterization was performed with the [place] catheter. FINDINGS: 1.Left main: Patent. 2.LAD: Patent. 3.Left circumflex artery: Patent. 4.RCA: Patent stent in the mid RCA. No other disease noted. 5.Left heart catheterization: LV pressure 109/5 mmHg. LVEDP 14 mmHg. Aortic pressure 112/74 mmHg. Normal LV function with no wall motion abnormalities. No gradient across the aortic valve. CONCLUSIONS: Patent stent with no significant CAD. Continue dual antiplatelet therapy. Miriam Coker MD, FACP, FACC, [facility] Interventional Cardiology Almaz COKER MD Dec 10, 2018 09:30
[2018-12-10 12:00] VITALS: BP 146/82
== END 2018-12-10 13:00 | disposition home or self-care (01) ==
LOC: 4TH 13:15 → UNDOADMOB 13:15 → 4TH 13:15 → CATH 13:15 → EDSTATUS 14:00 → UNDODISOB 12-10 13:00 → CATH 12-10 13:00
PROVIDERS: ATTEND Internal Medicine Interventional Cardiology
DX: I20.0 Unstable angina (principal); E78.5 Hyperlipidemia, unspecified; I10 Essential (primary) hypertension; R00.1 Bradycardia, unspecified; E11.9 Type 2 diabetes mellitus without complications; I47.1 Supraventricular tachycardia; M79.605 Pain in left leg; Z88.0 Allergy status to penicillin; Z82.49 Family history of ischemic heart disease and other diseases of the circulatory system
CPT/HCPCS: 36415; 80053; 82962; 84484; 85025; 85610; 93005; 93306; 93458

== ENCOUNTER → 2019-02-03 | Outpatient (CLI) | payer BC ==
[~2019-02-03] MED LIST changes: +ONDA8TAB13 PO
[2019-02-03 13:57] LABS: BASOPHILS % (AUTO) 0 % (0-10); EOSINOPHILS # (AUTO) 0.1 10^3/uL (0.0-0.3); EOSINOPHILS % (AUTO) 1 % (0-10); HEMATOCRIT 44 % (40-54); HEMOGLOBIN 14.8 G/DL (13.3-17.7); LYMPHOCYTES # (AUTO) 1.4 X 10^3 (1.0-4.0); LYMPHOCYTES % (AUTO) 18 % (12-44); MEAN CORPUSCULAR HEMOGLOBIN 30 PG (25-34); MEAN CORPUSCULAR HGB CONC 34 G/DL (32-36); MEAN CORPUSCULAR VOLUME 88 FL (80-99); MEAN PLATELET VOLUME 9.5 FL (7.4-10.4); MONOCYTES # (AUTO) 0.6 X 10^3 (0.0-1.0); MONOCYTES % (AUTO) 7 % (0-12); NEUTROPHILS # (AUTO) 5.6 X 10^3 (1.8-7.8); NEUTROPHILS % (AUTO) 73 % (42-75); PLATELET COUNT 249 10^3/uL (130-400); RED CELL DISTRIBUTION WIDTH 14.1 % (10.0-14.5); WHITE BLOOD COUNT 7.6 10^3/uL (4.3-11.0)
[2019-02-03 14:40] LABS: URINE CREATININE FOR RATIO 34 MG/DL (30-125); URINE PROTEIN FOR RATIO ONLY < 6 MG/DL (6-12)
[2019-02-03 15:24] LABS: ALBUMIN 4.6 GM/DL (3.2-4.5); BUN/CREATININE RATIO 13; CALCIUM 9.3 MG/DL (8.5-10.1); CARBON DIOXIDE 22 MMOL/L (21-32); CHLORIDE 105 MMOL/L (98-107); CREATININE SERUM 0.94 MG/DL (0.60-1.30); GFR ESTIMATED > 60; GLUCOSE 194 MG/DL (70-105); MAGNESIUM 2.1 MG/DL (1.8-2.4); PHOSPHORUS 3.5 MG/DL (2.3-4.7); POTASSIUM 3.8 MMOL/L (3.6-5.0); SODIUM 139 MMOL/L (135-145); URIC ACID 5.4 MG/DL (2.6-7.2)
== END ==
LOC: LAB 12:18
PROVIDERS: ATTEND Internal Medicine Nephrology
DX: I12.9 Hypertensive chronic kidney disease with stage 1 through stage 4 chronic kidney disease, or unspecified chronic kidney disease (principal); N18.2 Chronic kidney disease, stage 2 (mild); E21.3 Hyperparathyroidism, unspecified; N28.1 Cyst of kidney, acquired
CPT/HCPCS: 36415; 80069; 82306; 82570; 83735; 83970; 84156; 84550; 85025

== ENCOUNTER → 2019-02-23 | Outpatient (CLI) | payer BC ==
--- NOTE | 2019-02-23 12:42 | Diagnostic Imaging Report ---
PROCEDURE: MR imaging abdomen without contrast. TECHNIQUE: Multiplanar, multisequence MR imaging of the abdomen was performed without contrast. INDICATION: Renal cysts. Findings: Comparison is CT dated 12/13/2014. Again seen is a multi-septated cystic lesion involving the lower pole the left kidney. No large mural nodules are seen. However, the wall does enhance. For example, compare series 9 image 13 with series 10 image 45. No solid enhancing measurable mass is seen. These have increased from prior CT in 2015 with the largest cyst measuring 11 cm, previously 7 cm. The liver, spleen, pancreas and adrenal glands are normal. Right kidney is normal. Lung bases are clear. No abdominal lymphadenopathy is seen. Bowel is normal. No osseous lesions are seen. Impression: 1. Increase in size of complex multiseptated left renal cyst with enhancement of the wall. This lesion is indeterminate for malignancy, but is suspicious and would qualify as a Bosniak 3 cyst. Dictated by: Dictated on workstation # [id number]
== END ==
LOC: RAD 09:43
PROVIDERS: ATTEND Internal Medicine Nephrology
DX: N28.1 Cyst of kidney, acquired (principal)
CPT/HCPCS: 74181

== ENCOUNTER → 2019-03-03 | Outpatient (CLI) | payer BC ==
[2019-03-03 09:20] LABS: BUN/CREATININE RATIO 18; CALCIUM 9.5 MG/DL (8.5-10.1); CARBON DIOXIDE 21 MMOL/L (21-32); CHLORIDE 108 MMOL/L (98-107); CREATININE SERUM 0.95 MG/DL (0.60-1.30); GFR ESTIMATED > 60; GLUCOSE 114 MG/DL (70-105); SODIUM 140 MMOL/L (135-145)
== END ==
LOC: RAD 08:52
PROVIDERS: ATTEND Nurse Practitioner Family
DX: E11.9 Type 2 diabetes mellitus without complications (principal)
CPT/HCPCS: 36415; 80048

== ENCOUNTER → 2019-03-09 | Outpatient (CLI) | payer BC ==
--- NOTE | 2019-03-09 10:39 | Diagnostic Imaging Report ---
PROCEDURE: CT abdomen with and without contrast. TECHNIQUE: Multiple contiguous axial CT images of the abdomen were obtained prior to and after intravenous administration of iodinated contrast. Auto Exposure Controls were utilized during the CT exam to meet ALARA standards for radiation dose reduction. INDICATION: Left renal cyst, abdominal pain. FINDINGS: The CT abdomen/pelvis exam of 12/13/2014 noted multiple simple cysts associated with the left kidney. The largest of these cysts was along the inferomedial aspect of the left kidney and measured approximately 6.6 x 7.8 CM. There is another cyst along the inferolateral aspect of the left kidney. This measures 5.5 x 5.6 CM. The subsequent renal ultrasound exam of 01/08/2018 that cyst along the inferomedial aspect of the left kidney has increased in size and measured 8.8 CM in maximum dimension. The other cyst had also increased in size and measured 8.2 x 6.5 CM. The renal ultrasound exam of 11/30/2018 noted that the larger of 2 cysts had increased in size again and measured 10.1 x 8.2 CM while the other cyst measured 8.7 x 5.7 CM. The recent MRI exam of 02/23/2019 noted some enhancement of the wall of the septated cyst involving the left kidney and raise the question of malignancy. On this exam, there is no significant enhancement of the wall of any of the cysts associated with the left kidney. The cysts all have a similar appearance and the multiplicity of these findings would suggest that they are not related to an aggressive process. The overall size of cyst has not changed significantly since the recent MRI exam. There is no evidence for a solid renal mass and both kidneys do show excretion of the contrast. The liver, spleen, pancreas, adrenals, aorta and inferior vena cava show no sign of acute abnormality. The gallbladder is surgically absent. The stomach is not well distended and consequently difficult to assess. The lung bases are clear. The bone windows show no sign of a fracture or destructive lesion. IMPRESSION: 1. There is no enhancement of the cyst silva to suggest malignancy. The cysts involving the left kidney all seem similar and are most likely benign. However, it may prove worthwhile to repeat the MRI abdomen exam in 6 months for further evaluation. 2. There is no acute abnormality of the abdomen. 3. These results were discussed with . Dictated by: Dictated on workstation # [id number]
== END ==
LOC: RAD 08:49
PROVIDERS: ATTEND Urology
DX: N28.1 Cyst of kidney, acquired (principal); Z90.49 Acquired absence of other specified parts of digestive tract
CPT/HCPCS: 74170

== ENCOUNTER 2019-04-05 15:00 | Outpatient (CLI) | payer BC ==
[~2019-04-05] VITALS: Ht 177.8 cm; Wt 112.9 kg
[~2019-04-05 15:00] MED LIST changes: -TIZA4TAB3 PO; +TIZA4TAB4 PO
[2019-04-05] MEDS ORDERED: DICY10CA12 PO (15:14)
[2019-04-05] MEDS ORDERED: FEXO-46 PO (15:14)
[2019-04-05] MEDS ORDERED: EMPA25TA PO (15:14)
[2019-04-05] MEDS ORDERED: CLOP75TA69 PO (15:14)
== END 2019-04-05 15:16 | disposition home or self-care (01) ==
LOC: PREOP 15:00
PROVIDERS: ATTEND Surgery
DX: Z01.818 Encounter for other preprocedural examination (principal)

== ENCOUNTER → 2019-04-07 | Outpatient (CLI) | payer BC ==
[~2019-04-07] MED LIST changes: +DICY10CA12 PO; +EMPA25TA PO; +FEXO-46 PO
[2019-04-07 08:37] LABS: ALANINE AMINOTRANSFERASE 27 U/L (0-55); ALBUMIN 4.6 GM/DL (3.2-4.5); ALKALINE PHOSPHATASE 75 U/L (40-136); BILIRUBIN,TOTAL 0.6 MG/DL (0.1-1.0); BUN/CREATININE RATIO 14; CALCIUM 9.2 MG/DL (8.5-10.1); CARBON DIOXIDE 24 MMOL/L (21-32); CHLORIDE 107 MMOL/L (98-107); CHOLESTEROL 113 MG/DL (< 200); CREATININE SERUM 0.91 MG/DL (0.60-1.30); GFR ESTIMATED > 60; GLUCOSE 117 MG/DL (70-105); SODIUM 142 MMOL/L (135-145); TOTAL PROTEIN 7.5 GM/DL (6.4-8.2); TRIGLYCERIDES 54 MG/DL (<150)
== END ==
LOC: LAB 08:08
PROVIDERS: ATTEND Internal Medicine
DX: Z00.00 Encounter for general adult medical examination without abnormal findings (principal); E11.65 Type 2 diabetes mellitus with hyperglycemia; E78.2 Mixed hyperlipidemia
CPT/HCPCS: 36415; 80053; 82043; 82465; 83036; 84478

== ENCOUNTER 2019-04-12 08:57 | Day surgery (SDC) | payer BC ==
[~2019-04-12] VITALS: Ht 177.8 cm; Wt 112.9 kg
[2019-04-12] MEDS ORDERED: LACTATED RINGERS 1,000 ML IV STA (09:03)
[2019-04-12] MEDS ORDERED: LACTATED RINGERS 1,000 ML IV ONE (09:05)
[2019-04-12 09:20] VITALS: BP 140/85
[2019-04-12] MEDS ORDERED: PROPOFOL INJECTION 50 ML IV ONE (10:09)
[2019-04-12] MEDS ORDERED: proPOfol 200 MG/20 ML (DIPRIVAN) VIAL IV ONE (10:31)
[2019-04-12 10:55] VITALS: BP 119/71
[2019-04-12 11:00] VITALS: BP 122/76
--- NOTE | 2019-04-12 11:02 | Progress Note-Post Operative ---
Post-Operative Progess Note Surgeon (s)/Salvage Cutter (s) Surgeon DENTON WOLFF DO Salvage Cutter: none Pre-Operative Diagnosis Change in bowel habits, Screening Colon Post-Operative Diagnosis Colon polyp Diverticula Internal hemorrhoids Procedure & Operative Findings Date of Procedure 04/12/19 Procedure Performed/Findings Colon with snare Anesthesia Type IV sedation by DATABASE PROGRAMMER Estimated Blood Loss Estimated blood loss (mL): scant Specimens/Packing Specimens Removed transverse colon polyp DENTON WOLFF DO Apr 12, 2019 11:02
--- NOTE | 2019-04-12 11:04 | Endoscopy Discharge Instruct ---
Endo Procedure/Findings Findings 1.: Polyp 2.: Diverticulosis 3.: Internal Hemorrhoids Discharge Instructions - Activity: You might feel a little sleepy until tomorrow. This is due to the medicine you received to relax you. Until tomorrow, you should: NOT drive a car, operate machinery or power tools. NOT drink any alcoholic beverages. NOT make any important decisions or sign importortant papers. Do not return to work until tomorrow, unless otherwise instructed. Resume previous activities tomorrow. Diet: Start by taking liquids. If you tolerate liquids, advance to solid food. make an appointment for one week Notify Physician - If you experience excessive bleeding, unusual abdominal pain, fever, or chest pain, contact your doctor immediately. Follow-Up: - I have received and understand the above instructions and will call my doctor if I have any further questions. Patient Signature Date Nurse Signature Other (Relationship) DENTON WOLFF DO Apr 12, 2019 11:04
[2019-04-12 11:30] VITALS: BP 138/74
--- NOTE | 2019-04-12 12:45 | Anesthesia-General Post-Op ---
MAC Patient Condition Mental Status/LOC: Same as Preop Cardiovascular: Satisfactory Nausea/Vomiting: Absent Respiratory: Satisfactory Pain: Controlled Complications: Absent Post Op Complications Complications None Follow Up Care/Instructions Patient Instructions None needed. Anesthesiology Discharge Order Discharge Order Patient is doing well, no complaints, stable vital signs, no apparent adverse anesthesia problems. No complications reported per nursing. EMILEE RODAS CRNA Apr 12, 2019 12:45
--- NOTE | 2019-04-12 18:29 | OPERATIVE REPORT ---
DATE OF SERVICE: 04/12/2019 PREOPERATIVE DIAGNOSES: Change in bowel habits, screening colonoscopy. POSTOPERATIVE DIAGNOSES: 1. Colon polyp. 2. Diverticula. 3. Internal hemorrhoids. PROCEDURE PERFORMED: Colonoscopy with snare polypectomy. SURGEON: Arjun Ann DO. SPEECH WRITER: None. ANESTHESIA: IV sedation by SUPERVISOR DIAGNOSTIC. SPECIMEN: Colon polyp. BLOOD LOSS: Scant. FLUIDS: Per Anesthesia. POSTOPERATIVE CONDITION: Stable. INDICATION FOR PROCEDURE: The patient is a 63-year-old male who has had some change in bowel habits and he has not had a colonoscopy in a while, needs a screening. FINDINGS: The patient had a colon polyp. He also had some diverticula and some internal hemorrhoids. PROCEDURE NOTE: After informed consent was obtained, the patient was brought to the endoscopy suite and placed in the left lateral decubitus position. He was administered IV sedation by the SUPERVISOR DIAGNOSTIC who then monitored his vitals the entire time, heart rate, blood pressure and pulse ox and the scope was inserted. On the way in, noted some diverticula, took a picture of this and then saw a colon polyp, did snare polypectomy of this, able to remove this and sent to pathology, continued in, pushed to the cecum, took a picture of appendiceal orifice, noted the ileocecal valve and then slowly withdrew the scope insufflating to look circumferentially at the silva looking the cecum, up the ascending colon to the hepatic flexure, then down the transverse colon, the splenic flexure, into the descending colon down into the sigmoid and finally into the rectum, retroflexed the rectal vault, saw some internal hemorrhoids, took a picture of this and then removed the scope. The patient tolerated the procedure and recovered in the endoscopy suite. Job ID: [id number] DocumentID: [id number] Dictated Date: 04/12/2019 15:46:31 Credit Control Clerk Date: 04/12/2019 18:29:14 Dictated By: ARJUN ANN DO MTDD
== END 2019-04-12 11:45 | disposition home or self-care (01) ==
LOC: ENDO 08:57
PROVIDERS: ATTEND Surgery
DX: K63.5 Polyp of colon (principal); K64.8 Other hemorrhoids; K57.30 Diverticulosis of large intestine without perforation or abscess without bleeding; I10 Essential (primary) hypertension; G47.33 Obstructive sleep apnea (adult) (pediatric); E11.9 Type 2 diabetes mellitus without complications; I25.10 Atherosclerotic heart disease of native coronary artery without angina pectoris; I63.9 Cerebral infarction, unspecified; E66.9 Obesity, unspecified; Z95.5 Presence of coronary angioplasty implant and graft; Z79.4 Long term (current) use of insulin; Z99.89 Dependence on other enabling machines and devices; Z68.36 Body mass index [BMI] 36.0-36.9, adult; Z79.899 Other long term (current) drug therapy; Z79.82 Long term (current) use of aspirin; Z88.6 Allergy status to analgesic agent; Z88.0 Allergy status to penicillin; Z88.8 Allergy status to other drugs, medicaments and biological substances; Z83.3 Family history of diabetes mellitus; Z83.79 Family history of other diseases of the digestive system; Z82.49 Family history of ischemic heart disease and other diseases of the circulatory system; Z82.3 Family history of stroke
CPT/HCPCS: 88305

== ENCOUNTER → 2019-07-29 | Outpatient (CLI) | payer BC ==
[2019-07-29 09:56] LABS: ALANINE AMINOTRANSFERASE 26 U/L (0-55); ALBUMIN 4.6 GM/DL (3.2-4.5); ALKALINE PHOSPHATASE 61 U/L (40-136); BILIRUBIN,TOTAL 0.8 MG/DL (0.1-1.0); BUN/CREATININE RATIO 15; CALCIUM 9.2 MG/DL (8.5-10.1); CARBON DIOXIDE 21 MMOL/L (21-32); CHLORIDE 109 MMOL/L (98-107); CHOLESTEROL 110 MG/DL (< 200); CREATININE SERUM 0.92 MG/DL (0.60-1.30); GFR ESTIMATED > 60; GLUCOSE 121 MG/DL (70-105); POTASSIUM 3.7 MMOL/L (3.6-5.0); SODIUM 144 MMOL/L (135-145); TOTAL PROTEIN 6.9 GM/DL (6.4-8.2); TRIGLYCERIDES 63 MG/DL (<150)
== END ==
LOC: LAB 09:20
PROVIDERS: ATTEND Internal Medicine
DX: Z00.00 Encounter for general adult medical examination without abnormal findings (principal); E78.00 Pure hypercholesterolemia, unspecified; E78.1 Pure hyperglyceridemia; E11.65 Type 2 diabetes mellitus with hyperglycemia
CPT/HCPCS: 36415; 80053; 82465; 83036; 84478

== ENCOUNTER 2019-09-21 12:42 | Emergency (ER) | payer BC ==
[~2019-09-21] VITALS: Ht 177.8 cm; Wt 115.4 kg
[~2019-09-21 12:42] MED LIST changes: -GLIM1TAB PO; +GLIM1TAB2 PO; -GLIM2TAB PO; +GLIM2TAB2 PO; -LORA5SOL51 PO; +LORA5SOL52 PO; -METO-387 PO; +MTP25TSR PO; +OMEP40CA27 PO; -OMEP40CA36 PO; -RANI-514 PO; +RANI-607 PO
[2019-09-21] MEDS ORDERED: ASPIRIN 81 MG CHEW (CHILDREN'S ASA) PO ONE (12:45)
[2019-09-21 13:01] LABS: BASOPHILS % (AUTO) 0 % (0-10); EOSINOPHILS # (AUTO) 0.1 10^3/uL (0.0-0.3); EOSINOPHILS % (AUTO) 1 % (0-10); HEMATOCRIT 46 % (40-54); HEMOGLOBIN 15.4 G/DL (13.3-17.7); LYMPHOCYTES # (AUTO) 1.4 X 10^3 (1.0-4.0); LYMPHOCYTES % (AUTO) 17 % (12-44); MEAN CORPUSCULAR HEMOGLOBIN 30 PG (25-34); MEAN CORPUSCULAR HGB CONC 34 G/DL (32-36); MEAN CORPUSCULAR VOLUME 88 FL (80-99); MEAN PLATELET VOLUME 8.8 FL (7.4-10.4); MONOCYTES # (AUTO) 0.6 X 10^3 (0.0-1.0); MONOCYTES % (AUTO) 7 % (0-12); NEUTROPHILS # (AUTO) 6.2 X 10^3 (1.8-7.8); NEUTROPHILS % (AUTO) 75 % (42-75); PLATELET COUNT 254 10^3/uL (130-400); RED CELL DISTRIBUTION WIDTH 14.6 % (10.0-14.5); WHITE BLOOD COUNT 8.2 10^3/uL (4.3-11.0)
--- NOTE | 2019-09-21 13:04 | ED Chest Pain ---
General Chief Complaint: Chest Pain Stated Complaint: BACK/CHEST PAIN Nursing Triage Note: AMB TO ROOM REPORTS FRIDAY HAS SOME UPPER BACK PAIN ON R SIDE SKIN INSTALLER PAIN HAS RADATION AROUND TO FRONT. Nursing Sepsis Screen: No Definite Risk Source: patient Exam Limitations: no limitations History of Present Illness Date Seen by Provider: Sep 21, 2019 Time Seen by Provider: 12:47 Initial Comments Here with report of back pain that is centered in the back between the shoulder blades that radiates to the chest especially on the right side. Onset 2 days ago. Better with rest or lying down. Not specifically worse with activity but notes when he is not resting or lying down that he has the pain. Has had some nausea and diarrhea. Denies sweating or breathing problems. Does have a cardiac history and has had previous cardiac catheterization with stent placement. Follows with Dr. Coker Timing/Duration: 2-3 days Severity/Quality: moderate, aching Location: shoulder Radiation: other (anterior right-sided chest) Activities at Onset: none Prior CP/Workup: cardiac cath, echocardiography, stress test ASA po SKIN INSTALLER: No NTG SL SKIN INSTALLER: No Associated Symptoms: No abdominal pain; back pain (WHERE the morning when he); No diaphoresis; fatigue; No fever/chills, No nausea/vomiting, No shortness of breath; weakness Allergies and Home Medications Allergies Coded Allergies: Penicillins (Verified Allergy, Severe, Rash, 12/09/18) diclofenac sodium (Verified Allergy, Mild, DIZZINESS, 12/09/18) methocarbamol (Verified Allergy, Mild, RASH, 12/09/18) Home Medications Amlodipine Besylate 10 Mg Tablet, 10 MG PO DAILY, (Reported) Aspirin 81 Mg Tablet.dr, 81 MG PO DAILY, (Reported) Atorvastatin Calcium 40 Mg Tablet, 40 MG PO HS, (Reported) Cholecalciferol (Vitamin D3) 50,000 Unit Capsule, 50,000 UNIT PO MoTh, (Reported) Clopidogrel Bisulfate 75 Mg Tablet, 75 MG PO DAILY, (Reported) Dicyclomine HCl 10 Mg Capsule, 10 MG PO DAILY, (Reported) Doxazosin Mesylate 4 Mg Tablet, 4 MG PO HS, (Reported) Empagliflozin 25 Mg Tablet, 25 MG PO DAILY, (Reported) Epinephrine 0.3 Mg/0.3 Ml Auto.injct, 0.3 MG IJ UD PRN for ALLERGIC REACTION, (Reported) Fexofenadine HCl 180 Mg Tablet, 180 MG PO DAILY, (Reported) Fluticasone Propionate 16 Gm Rentz.susp, 2 SPRAYS NS DAILY, (Reported) Insulin Aspart 300 Units/3 Ml Solution, 1-10 UNITS SQ SLIDING/SCALE, (Reported) Insulin Detemir 100 Unit/1 Ml Insuln.pen, 80 UNITS SC HS, (Reported) Lisinopril 20 Mg Tablet, 20 MG PO HS, (Reported) Nitroglycerin 0.4 Mg Tab.subl, 0.4 MG SL UD PRN for CHEST PAIN, (Reported) Potassium Chloride 10 Meq Tablet.er, 10 MEQ PO DAILY, (Reported) Ranitidine HCl 75 Mg Tablet, 75 MG PO DAILY, (Reported) Spironolactone 50 Mg Tablet, 50 MG PO DAILY, (Reported) Torsemide 10 Mg Tablet, 10 MG PO DAILY, (Reported) Patient Home Medication List Home Medication List Reviewed: Yes (is) Review of Systems Review of Systems Constitutional: see HPI EENTM: No Symptoms Reported Respiratory: No Symptoms Reported Cardiovascular: See HPI, Chest Pain; Denies Edema Gastrointestinal: Diarrhea; Denies Vomiting Genitourinary: No Symptoms Reported Musculoskeletal: see HPI, back pain; No neck pain Skin: no symptoms reported All Other Systems Reviewed Negative Unless Noted: Yes Past Rnrkvxz-Ackspt-Xhfzyk Hx Past Med/Social Hx: Reviewed Nursing Past Med/Soc Hx Patient Social History Alcohol Use: Occasionally Uses Number of Drinks Today: AA Alcohol Beverage of Choice: Beer Recreational Drug Use: No Smoking Status: Current Everyday Smoker Type Used: Cigarettes 2nd Hand Smoke Exposure: No Recent Foreign Travel: No Contact w/Someone Who Travel: No Recent Infectious Disease Expo: No Recent Hopitalizations: No Immunizations Up To Date Tetanus Booster (TDap): Unknown PED Vaccines UTD: No Date of Pneumonia Vaccine: May 26, 2017 Date of Influenza Vaccine: May 25, 2018 Seasonal Allergies Seasonal Allergies: Yes Past Medical History Surgeries: Yes (cervical disc fusion, left shoulder surgery X2, CATARACTS) Coronary Stent, Gallbladder, Orthopedic, Tonsillectomy, Vasectomy Respiratory: Yes Sleep Apnea Currently Using CPAP: Yes (at home) Currently Using BIPAP: No Cardiac: Yes (-2017) Coronary Artery Disease, High Cholesterol, Hypertension Neurological: Yes Neuropathy Sexually Transmitted Disease: No HIV/AIDS: No 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) Renal Failure, Polycystic Kidney Disease Gastrointestinal: Yes Gastroesophageal Reflux, Chronic Diarrhea, Ulcer Musculoskeletal: Yes Degenerate Disk Disease, Arthritis, Chronic Back Pain Endocrine: Yes Diabetes, Non-Insulin dep HEENT: Yes (GLASSES) Cataract Loss of Vision: Bilateral Hearing Impairment: Denies Cancer: No Did You Recieve Any Treatments: No Psychosocial: No Integumentary: No Blood Disorders: No Adverse Reaction/Blood Tranf: No (N/A) Family Medical History Reviewed Nursing Family Hx Asthma 19 FATHER, Onset:Unknown Colon cancer maternal grandmother, Onset:Unknown Dementia 19 FATHER, Onset:60 years & older FH: congestive heart failure maternal grandfather, Onset:Unknown FHx: colon cancer Myocardial infarction 19 MOTHER, Onset:60 years & older Diabetes Physical Exam Vital Signs Vital Signs - First Documented 09/21/19 12:42 Temp 36.8 Pulse 94 Resp 18 B/P (MAP) 155/102 (119) Pulse Ox 6 O2 Delivery Room Air Capillary Refill : Less Than 3 Seconds Height, Weight, BMI Height: 5'10.00" Weight: 249lbs. 0.0oz. 112.961896gn; 36.00 BMI Method:Stated General Appearance: No Apparent Distress, WD/WN HEENT: PERRL/EOMI, Pharynx Normal Neck: Non Tender, Supple Respiratory: Lungs Clear, Normal Breath Sounds Cardiovascular: Regular Rate, Rhythm, No Murmur Gastrointestinal: Non Tender, Soft Extremity: Normal Range of Motion, Non Tender Neurologic/Psychiatric: Alert, Oriented x3 Skin: Normal Color, Warm/Dry Progress/Results/Core Measures Results/Orders Lab Results Laboratory Tests Test 09/21/19 12:49 09/21/19 14:54 Range/Units White Blood Count 8.2 4.3-11.0 10^3/uL Red Blood Count 5.21 4.35-5.85 10^6/uL Hemoglobin 15.4 13.3-17.7 G/DL Hematocrit 46 40-54 % Mean Corpuscular Volume 88 80-99 FL Mean Corpuscular Hemoglobin 30 25-34 PG Mean Corpuscular Hemoglobin Concent 34 32-36 G/DL Red Cell Distribution Width 14.6 H 10.0-14.5 % Platelet Count 254 130-400 10^3/uL Mean Platelet Volume 8.8 7.4-10.4 FL Neutrophils (%) (Auto) 75 42-75 % Lymphocytes (%) (Auto) 17 12-44 % Monocytes (%) (Auto) 7 0-12 % Eosinophils (%) (Auto) 1 0-10 % Basophils (%) (Auto) 0 0-10 % Neutrophils # (Auto) 6.2 1.8-7.8 X 10^3 Lymphocytes # (Auto) 1.4 1.0-4.0 X 10^3 Monocytes # (Auto) 0.6 0.0-1.0 X 10^3 Eosinophils # (Auto) 0.1 0.0-0.3 10^3/uL Basophils # (Auto) 0.0 0.0-0.1 10^3/uL Prothrombin Time 13.2 12.2-14.7 SEC INR Comment 1.0 0.8-1.4 Activated Partial Thromboplast Time 30 24-35 SEC D-Dimer <= 0.27 0.00-0.49 UG/ML Sodium Level 142 135-145 MMOL/L Potassium Level 3.8 3.6-5.0 MMOL/L Chloride Level 106 98-107 MMOL/L Carbon Dioxide Level 24 21-32 MMOL/L Anion Gap 12 5-14 MMOL/L Blood Urea Nitrogen 18 7-18 MG/DL Creatinine 1.01 0.60-1.30 MG/DL Estimat Glomerular Filtration Rate > 60 BUN/Creatinine Ratio 18 Glucose Level 170 H 70-105 MG/DL Calcium Level 9.8 8.5-10.1 MG/DL Corrected Calcium 8.5-10.1 MG/DL Magnesium Level 1.9 1.6-2.4 MG/DL Total Bilirubin 0.6 0.1-1.0 MG/DL Aspartate Amino Transf (AST/SGOT) 12 5-34 U/L Alanine Aminotransferase (ALT/SGPT) 24 0-55 U/L Alkaline Phosphatase 64 40-136 U/L Myoglobin 56.4 10.0-92.0 NG/ML Troponin I < 0.028 < 0.028 <0.028 NG/ML Total Protein 7.3 6.4-8.2 GM/DL Albumin 4.8 H 3.2-4.5 GM/DL Lipase 42 8-78 U/L My Orders Orders - BRI DUCKWORTH MD Cbc With Automated Diff (09/21/19 12:44) Magnesium (09/21/19 12:44) Chest 1 View, Ap/Pa Only (09/21/19 12:44) Ekg Tracing (09/21/19 12:44) Comprehensive Metabolic Panel (09/21/19 12:44) Myoglobin Serum (09/21/19 12:44) Protime With Inr (09/21/19 12:44) Partial Thromboplastin Time (09/21/19 12:44) O2 (09/21/19 12:44) Monitor-Rhythm Ecg Trace Only (09/21/19 12:44) Lipid Panel (09/22/19 06:00) Ed Iv/Invasive Line Start (09/21/19 12:44) Aspirin Chewable Tablet (Baby Aspirin Ch (09/21/19 12:45) Fibrin Degradation Products (09/21/19 12:44) Troponin I (09/21/19 12:49) Lipase (09/21/19 14:08) Ketorolac Injection (Toradol Injection) (09/21/19 14:13) Troponin I (09/21/19 14:50) Medications Given in ED Current Medications Medications Dose Ordered Sig/Amie Route Start Time Stop Time Status Last Admin Dose Admin Aspirin 324 mg ONCE ONCE PO 09/21/19 12:45 09/21/19 12:46 DC 09/21/19 12:51 324 MG Vital Signs/I&O 09/21/19 12:42 Temp 36.8 Pulse 94 Resp 18 B/P (MAP) 155/102 (119) Pulse Ox 6 O2 Delivery Room Air Blood Pressure Mean: 119 Progress Progress Note : Progress Note Seen and evaluated. IV, labs, EKG and chest x-ray ordered. ASA 1 mg by mouth ordered. Monitor patient. 1415: No acute findings currently. We will repeat troponin at 1450. Toradol 30 mg IV now for pain. He states that he has history of back pain and had fusion in the area and sometimes gets pain there and thinks it may be that. He states is mainly worried because of history although has been doing well with his heart-related stuff. Monitor patient. 1553: Repeat troponin is negative. Patient is overall feeling much better. Discharged home with return precautions. Patient verbalize understanding instructions and agreement with plan. Initial ECG Impression Date: Sep 21, 2019 Initial ECG Impression Time: 12:47 Initial ECG Rate: 96 Comment Sinus rhythm with right bundle block and right axis deviation. No evidence of ST elevation [place]. Right Bundle branch block appears to be progression from previous but new from 12/10/18. Interpreted by me. Diagnostic Imaging Diagonstic Imaging: Xray Plain Films/CT/US/NM/MRI: chest Comments [facility]. [place], [place] NAME: DENTON DIAZ MED REC#: [id number] PT STATUS: REG ER : 1955 PHYSICIAN: BRI DUCKWORTH MD ADMIT DATE: 09/21/19/ER Draft Date of Exam:09/21/19 CHEST 1 VIEW, AP/PA ONLY INDICATION: Right-sided back pain radiating to the anterior chest wall. TIME OF EXAM: 01:05 p.m. Correlation is made with prior study of 09/03/2018. FINDINGS: Spinal stimulator is noted in the mid thoracic spine. Lungs are clear. The pulmonary vascularity is normal. There is no effusion or pneumothorax. IMPRESSION: No acute cardiopulmonary process is detected. Dictated on workstation # [id number] Dict: 09/21/19 1356 Trans: 09/21/19 1358 [id number] Interpreted by: ADARSH RASMUSSEN MD Electronically signed by: Departure Impression Primary Impression: Chest pain Qualified Codes: R07.9 - Chest pain, unspecified Additional Impression: Thoracic back pain Qualified Codes: M54.6 - Pain in thoracic spine Disposition: 01 HOME, SELF-CARE Condition: Improved Departure-Patient Inst. Decision time for Depature: 15:55 Referrals: JANEEN CHAMPION DO (PCP/Family) Primary Care Physician Patient Instructions: Chest Pain (DC), Upper Back Pain Add. Discharge Instructions: All discharge instructions reviewed with patient and/or family. Voiced understanding. Follow-up with your primary care doctor as well as your appointment coordinator for recheck and further evaluation. Call their offices for appointment. You can consider following up with your orthopedist as well regarding your back pain. Return for worse pain, fever, vomiting, weakness, breathing problems or other concerns as needed. Continue home medications as previously prescribed. You may take Tylenol/acetaminophen 1000 mg every 8 hours as needed for pain. Copy Copies To 1: JANEEN CHAMPION DO Copies To 2: Almaz COKER MD, TIMOTHY D MD Sep 21, 2019 13:04
[2019-09-21 13:15] LABS: PROTHROMBIN TIME PATIENT 13.2 SEC (12.2-14.7)
[2019-09-21 13:16] LABS: PARTIAL THROMBOPLASTIN TIME 30 SEC (24-35)
[2019-09-21 13:21] LABS: FIBRIN DEGRADATION PRODUCTS <= 0.27 UG/ML (0.00-0.49)
[2019-09-21 13:26] LABS: ALANINE AMINOTRANSFERASE 24 U/L (0-55); ALBUMIN 4.8 GM/DL (3.2-4.5); ALKALINE PHOSPHATASE 64 U/L (40-136); BILIRUBIN,TOTAL 0.6 MG/DL (0.1-1.0); BUN/CREATININE RATIO 18; CALCIUM 9.8 MG/DL (8.5-10.1); CARBON DIOXIDE 24 MMOL/L (21-32); CHLORIDE 106 MMOL/L (98-107); CREATININE SERUM 1.01 MG/DL (0.60-1.30); GFR ESTIMATED > 60; GLUCOSE 170 MG/DL (70-105); MAGNESIUM 1.9 MG/DL (1.6-2.4); POTASSIUM 3.8 MMOL/L (3.6-5.0); SODIUM 142 MMOL/L (135-145); TOTAL PROTEIN 7.3 GM/DL (6.4-8.2)
--- NOTE | 2019-09-21 13:58 | Diagnostic Imaging Report ---
INDICATION: Right-sided back pain radiating to the anterior chest wall. TIME OF EXAM: 01:05 p.m. Correlation is made with prior study of 09/03/2018. FINDINGS: Spinal stimulator is noted in the mid thoracic spine. Lungs are clear. The pulmonary vascularity is normal. There is no effusion or pneumothorax. IMPRESSION: No acute cardiopulmonary process is detected. Dictated by: Dictated on workstation # [id number]
[2019-09-21] MEDS ORDERED: KETOROLAC 30 MG/ML VIAL IVP STA (14:13)
--- NOTE | 2019-09-21 14:57 | NUR ---
REPEAT TROPONIN SENT TO LAB
[2019-09-21 16:20] VITALS: BP 145/91
== END 2019-09-21 16:20 | disposition home or self-care (01) ==
LOC: EDUNIT# 12:42 → ER 12:43
DX: R07.89 Other chest pain (principal); M54.6 Pain in thoracic spine; E11.22 Type 2 diabetes mellitus with diabetic chronic kidney disease; I12.9 Hypertensive chronic kidney disease with stage 1 through stage 4 chronic kidney disease, or unspecified chronic kidney disease; N18.2 Chronic kidney disease, stage 2 (mild); E11.40 Type 2 diabetes mellitus with diabetic neuropathy, unspecified; I25.10 Atherosclerotic heart disease of native coronary artery without angina pectoris; E78.00 Pure hypercholesterolemia, unspecified; K21.9 Gastro-esophageal reflux disease without esophagitis; F17.210 Nicotine dependence, cigarettes, uncomplicated; Z95.5 Presence of coronary angioplasty implant and graft; Z88.0 Allergy status to penicillin; Z88.8 Allergy status to other drugs, medicaments and biological substances; Z79.82 Long term (current) use of aspirin; Z79.02 Long term (current) use of antithrombotics/antiplatelets; Z79.4 Long term (current) use of insulin; Z79.51 Long term (current) use of inhaled steroids; Z80.0 Family history of malignant neoplasm of digestive organs; Z82.49 Family history of ischemic heart disease and other diseases of the circulatory system
CPT/HCPCS: 36415; 71045; 80053; 83690; 83735; 83874; 84484; 85025; 85379; 85610; 85730; 93005; 93041

== ENCOUNTER → 2019-12-13 | Outpatient (CLI) | payer BC ==
[~2019-12-13] MED LIST changes: +ACHYD1T PO; -CETI10TA20 PO; +CETI10TA21 PO; -GLIM1TAB2 PO; +GLIM1TAB4 PO; -GLIM2TAB2 PO; +GLIM2TAB4 PO; -HYDR-3820 PO; -MONT10TA24 PO; +MONT10TA26 PO
== END ==
LOC: CARD 10:35
PROVIDERS: ATTEND Internal Medicine Interventional Cardiology
DX: Z53.9 Procedure and treatment not carried out, unspecified reason (principal)

== ENCOUNTER 2020-02-07 13:50 | Inpatient (IN) | payer BC ==
[~2020-02-07] VITALS: Ht 177.8 cm; Wt 113.6 kg
[2020-02-07] MEDS ORDERED: diphenhydrAMINE 25 MG TAB (BENADRYL) PO PRN (14:00)
[2020-02-07] MEDS ORDERED: DOCUSATE SODIUM 100 MG (COLACE) CAP PO PRN (14:00)
[2020-02-07] MEDS ORDERED: ALPRAZolam 0.25 MG (XANAX) TAB PO PRN (14:00)
[2020-02-07] MEDS ORDERED: CALCIUM CARBONATE 500 MG (TUMS) TAB.CHEW PO PRN (14:00)
[2020-02-07] MEDS ORDERED: ACETAMINOPHEN 500 MG TAB (TYLENOL) PO PRN (14:00)
[2020-02-07] MEDS ORDERED: ONDANSETRON 4 MG/2 ML (SDV) Z0FRAN IVP PRN (14:00)
[2020-02-07 14:30] VITALS: BP 132/81
--- NOTE | 2020-02-07 14:30 | NUR ---
DENTON DIAZ admitted to room 404-1, with an admitting diagnosis of RLQ ABD PAIN , on 02/07/20 from DIRECT ADMIT via AMBULATORY, accompanied by SELF. DENTON DIAZ introduced to surroundings, call light, bed controls, phone, TV, temperature control, lights, meal times, smoking policy, visitor policy, side rail policy, bathrooms and showers. Patient Rights given to patient in the handbook. DENTON DIAZ verbalizes understanding that [facility] is not responsible for the loss or damage to any personal effects or valuables that are kept in the patients posession during their hospitalization. The following Patient Care Plans were discussed with the PT: Discharge Planning, ABD PAIN. DENTON DIAZ verbalizes understanding of Interdisciplinary Patient Education. Patient and/or family were informed about the Rapid Response Team and its purpose.
[2020-02-07 14:57] LABS: BASOPHILS % (AUTO) 0 % (0-10); EOSINOPHILS % (AUTO) 0 % (0-10); HEMATOCRIT 43 % (40-54); HEMOGLOBIN 14.9 G/DL (13.3-17.7); LYMPHOCYTES # (AUTO) 1.5 X 10^3 (1.0-4.0); LYMPHOCYTES % (AUTO) 15 % (12-44); MEAN CORPUSCULAR HEMOGLOBIN 30 PG (25-34); MEAN CORPUSCULAR HGB CONC 35 G/DL (32-36); MEAN CORPUSCULAR VOLUME 87 FL (80-99); MEAN PLATELET VOLUME 9.2 FL (7.4-10.4); MONOCYTES # (AUTO) 0.6 X 10^3 (0.0-1.0); MONOCYTES % (AUTO) 6 % (0-12); NEUTROPHILS # (AUTO) 7.9 X 10^3 (1.8-7.8); NEUTROPHILS % (AUTO) 79 % (42-75); PLATELET COUNT 236 10^3/uL (130-400)
[2020-02-07] MEDS: NS IV 1000 ML 1,000 ML IV SCH (15:07)
[2020-02-07 15:12] LABS: BILIRUBIN,URINE NEGATIVE (NEGATIVE); CLARITY,URINE CLEAR; COLOR,URINE YELLOW; GLUCOSE, URINE (UA) 3+ (NEGATIVE); KETONES,URINE TRACE (NEGATIVE); LEUKOCYTE ESTERASE ,URINE NEGATIVE (NEGATIVE); NITRITE,URINE NEGATIVE (NEGATIVE); PH,URINE 5.5 (5-9); PROTEIN,URINE NEGATIVE (NEGATIVE)
[2020-02-07] MEDS: HYDROmorphone 2 MG/ML VIAL (DILAUDID) IVP PRN ×2 (15:13→21:24)
[2020-02-07] MEDS ORDERED: CATHETER FLUSH 10 ML SYR IV PRN (15:15)
[2020-02-07 15:18] LABS: BACTERIA,URINE NEGATIVE /HPF; RBC,URINE RARE /HPF; SQUAMOUS EPITHELIAL CELL,UR RARE /HPF
[2020-02-07 15:19] LABS: ERYTHROCYTE SEDIMENTATION RATE 3 MM/HR (0-30)
[2020-02-07 15:20] LABS: ALANINE AMINOTRANSFERASE 21 U/L (0-55); ALBUMIN 4.6 GM/DL (3.2-4.5); ALKALINE PHOSPHATASE 67 U/L (40-136); AMYLASE 112 U/L (25-125); BILIRUBIN,TOTAL 0.5 MG/DL (0.1-1.0); BUN/CREATININE RATIO 17; CALCIUM 9.4 MG/DL (8.5-10.1); CARBON DIOXIDE 31 MMOL/L (21-32); CHLORIDE 101 MMOL/L (98-107); CREATININE SERUM 1.21 MG/DL (0.60-1.30); GFR ESTIMATED > 60; GLUCOSE 128 MG/DL (70-105); LIPASE 235 U/L (8-78); POTASSIUM 2.9 MMOL/L (3.6-5.0); SODIUM 142 MMOL/L (135-145); TOTAL PROTEIN 7.3 GM/DL (6.4-8.2)
--- NOTE | 2020-02-07 15:53 | Diagnostic Imaging Report ---
INDICATION: Right lower quadrant pain. TIME OF EXAM: 03:29 p.m. FINDINGS: The heart size is normal. Lungs are clear. The pulmonary vascularity is normal. There is no effusion or pneumothorax. There are postoperative changes in the lower cervical spine with plate and numerous screws. There appears to be a slight spinal stimulator at the level of the mid thoracic spine. No free air is identified. There are surgical clips in right upper quadrant. Evaluation of the bowel gas pattern demonstrates gas within the colon which is not appreciably dilated. Small amount of small bowel gas is present. There is suggestion of some fluid filled and slightly dilated small bowel with scattered air-fluid levels. No pathologic calcifications are seen. IMPRESSION: Nonspecific bowel gas pattern. There appear to be some mildly distended fluid-filled small bowel loops, indeterminate. Consideration could be given to performance of a CT abdomen and pelvis. If this is not performed, progress abdominal radiographs could be obtained. Dictated by: Dictated on workstation # [id number]
[2020-02-07 16:00] VITALS: BP 108/59
[2020-02-07] MEDS: ENOXAPARIN 40 MG/0.4 ML (LOVENOX) SYR SC SCH (16:17)
[2020-02-07] MEDS: POTASSIUM CL 10MEQ/50ML IVPB 50 ML IV SCH ×4 (16:18→20:58)
--- OUTSIDE RECORDS SUMMARY | 2020-02-07 16:49 | XMS REPORT | Continuity of Care Document ---
Demographics Preferred Language Unknown Marital Status Unknown Scientologist Affiliation Unknown Race Unknown Ethnic Group Unknown Author Organization Unknown Address Unknown Phone Unavailable Allergies Active Description Code Type Severity Reaction Onset Reported/Identified Relationship to Patient Clinical Status Yes LIDOCAINE [id number] DRUG N/A N/A Yes PENICILLIN [id number] CLASS N/A N/A Yes PENICILLINS (CLASS) [id number] CLAS S N/A N/A Yes XYLOCAINE EP YOSSI 1##37; [id number] BRANDNAME N/A N/A Yes diclofenac sodium [id number] Drug Allergy Unknown N/A 12/10/2017 Yes lidocaine HCl [id number] Polo g Allergy Unknown LOW PULSE 12/10/2017 Yes Penicillins [id number] Drug Aller gy Severe Rash 02/07/2020 Yes diclofenac sodium [id number] Drug Allergy Mild DIZZINESS 02/07/2020 Yes methocarbamol [id number] Polo g Allergy Mild RASH 02/07/2020 Medications There is no data. Problems Date Dx Coded Attending Type Code Diagnosis Diagnosed By 06/01/2011 Ot 276.8 HYPO POTASSEMIA 06/01/2011 Ot 401.9 HYPE RTENSION NOS 06/01/2011 Ot 780.4 DIZZ INESS AND GIDDINESS 06/01/2011 Ot 784.0 HEAD ACHE 08/10/2011 Ot 327.23 OBS TRUCTIVE SLEEP APNEA (ADULT) (PEDIATR 09/25/2011 Ot 593.2 CYST OF KIDNEY, ACQUIRED 09/25/2011 Ot 789.01 ABD OMINAL PAIN, RIGHT UPPER QUADRANT 10/17/2011 Ot 787.99 OT ER GI SYSTEM SYMPTOMS 10/17/2011 Ot 789.01 ABD OMINAL PAIN, RIGHT UPPER QUADRANT 10/17/2011 Ot V16.0 FAMI LY HX-GI MALIGNANCY 10/21/2011 Ot 401.9 HYPE RTENSION NOS 10/21/2011 Ot 535.40 OTH SPECIFIED GASTRITIS,W/O MENTION OF H 10/21/2011 Ot 535.50 UNS P GASTRITIS GASTRODUODENITIS W/O ME 11/13/2011 Ot 789.01 ABD OMINAL PAIN, RIGHT UPPER QUADRANT 04/20/2014 JANEEN CRUZ DO Ot 427.89 CARDIAC DYSRHYTHMIAS NEC 07/19/2014 Ot V72.84 07/19/2014 Ot 789.01 07/19/2014 JUNE ALVAREZ MD Ot 478.19 07/19/2014 JUNE ALVAREZ MD Ot 780 .4 07/19/2014 Ot 427.89 12/13/2014 Ot 427.89 12/13/2014 DONITA PEDRAZA, BRI [place] Ot 789.03 ABDOMINAL PAIN, RIGHT LOWER QUADRANT 04/27/2015 SATHISH SALOMON MD Ot 722.5 1 04/27/2015 SATHISH SALOMON MD Ot 723.0 08/17/2015 Ot V72.84 08/17/2015 Ot 789.01 08/17/2015 JUNE ALVAREZ MD Ot 478.19 08/17/2015 JUNE ALVAREZ MD Ot 780 .4 08/17/2015 Ot 427.89 08/17/2015 SATHISH SALOMON MD Ot 722.5 1 08/17/2015 SATHISH SALOMON MD Ot 723.0 05/17/2016 Ot V72.84 EXA M PRE- OPERATIVE NOS 05/17/2016 Ot 789.01 ABD OMINAL PAIN, RIGHT UPPER QUADRANT 05/17/2016 JUNE ALVAREZ MD Ot 478.19 OTHER DISEASE OF NASAL CAVITY AND SINUSE 05/17/2016 JUNE ALVAREZ MD Ot 780 .4 DIZZINESS AND GIDDINESS 05/17/2016 Ot 427.89 CAR DIAC DYSRHYTHMIAS NEC 05/17/2016 SATHISH SALOMON MD Ot 722.5 1 THORACIC DISC DEGEN 05/17/2016 SATHISH SALOMON MD Ot 723.0 CERVICAL SPINAL STENOSIS 05/17/2016 Ot V72.84 EXA M PRE- OPERATIVE NOS 05/17/2016 Ot 789.01 ABD OMINAL PAIN, RIGHT UPPER QUADRANT 05/17/2016 JUNE ALVAREZ MD Ot 478.19 OTHER DISEASE OF NASAL CAVITY AND SINUSE 05/17/2016 JUNE ALVAREZ MD Ot 780 .4 DIZZINESS AND GIDDINESS 05/17/2016 Ot 427.89 CAR DIAC DYSRHYTHMIAS NEC 05/17/2016 SATHISH SALOMON MD Ot 722.5 1 THORACIC DISC DEGEN 05/17/2016 SATHISH SALOMON MD Ot 723.0 CERVICAL SPINAL STENOSIS 05/17/2016 JORDAN GRANADOS APRN Ot M47.892 OTHER SPONDYLOSIS, CERVICAL REGION 05/17/2016 JORDAN GRANADOS AGRICULTURAL SCIENCES PROFESSOR Ot M48.02 SPINAL STENOSIS, CERVICAL REGION 05/17/2016 JORDAN GRANADOS AGRICULTURAL SCIENCES PROFESSOR Ot M54 .2 CERVICALGIA 05/17/2016 JORDAN GRANADOS AGRICULTURAL SCIENCES PROFESSOR Ot Z98 .1 ARTHRODESIS STATUS 05/17/2016 Ot V72.84 EXA M PRE- OPERATIVE NOS 05/17/2016 Ot 789.01 ABD OMINAL PAIN, RIGHT UPPER QUADRANT 05/17/2016 JUNE ALVAREZ MD Ot 478.19 OTHER DISEASE OF NASAL CAVITY AND SINUSE 05/17/2016 JUNE ALVAREZ MD Ot 780 .4 DIZZINESS AND GIDDINESS 05/17/2016 Ot 427.89 CAR DIAC DYSRHYTHMIAS NEC 05/17/2016 SATHISH SALOMON MD Ot 722.5 1 THORACIC DISC DEGEN 05/17/2016 SATHISH SALOMON MD Ot 723.0 CERVICAL SPINAL STENOSIS 05/24/2016 Ot V72.84 EXA M PRE- OPERATIVE NOS 05/24/2016 Ot 789.01 ABD OMINAL PAIN, RIGHT UPPER QUADRANT 05/24/2016 JUNE ALVAREZ MD Ot 478.19 OTHER DISEASE OF NASAL CAVITY AND SINUSE 05/24/2016 JUNE ALVAREZ MD Ot 780 .4 DIZZINESS AND GIDDINESS 05/24/2016 Ot 427.89 CAR DIAC DYSRHYTHMIAS NEC 05/24/2016 SATHISH SALOMON MD Ot 722.5 1 THORACIC DISC DEGEN 05/24/2016 SATHISH SALOMON MD Ot 723.0 CERVICAL SPINAL STENOSIS 04/27/2017 AJNEEN CRUZ DO Ot E11.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 DRILL OPERATOR 04/27/2017 NIKO CRUZ DOI Ot E78.5 HYPERLIPIDEMIA, UNSPECIFIED 04/27/2017 NIKO CRUZ DOI Ot G47.33 OBSTRUCTIVE SLEEP APNEA (ADULT) (PEDIATR 04/27/2017 NIKO CRUZ DOI Ot I12.9 HYPERTENSIVE CHRONIC KIDNEY DISEASE W ST 04/27/2017 NIKO CRUZ DOI Ot I25.11 0 ATHSCL HEART DISEASE OF [place] COR ART W 04/27/2017 NIKO CRUZ DOI Ot J44.9 CHRONIC OBSTRUCTIVE PULMONARY DISEASE, U 04/27/2017 NIKO CRUZ DOI Ot N18.9 CHRONIC KIDNEY DISEASE, UNSPECIFIED 04/27/2017 CRUZ DO, JANEEN Ot Z79.89 9 OTHER NURSING HOME (CURRENT) DRUG THERAPY 04/27/2017 JAYCEE DO JANEEN Ot Z82.49 FAMILY HX OF [place] HEART DIS AND OTH DI 05/02/2017 CRUZ DO, JANEEN Ot E11.40 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 WITH DIABETIC N 05/02/2017 CRUZ DO JANEEN Ot G47.33 OBSTRUCTIVE SLEEP APNEA (ADULT) (PEDIATR 05/02/2017 CRUZ DO, JANEEN Ot I12.9 HYPERTENSIVE CHRONIC KIDNEY DISEASE W ST 05/02/2017 CRUZ DO, JANEEN Ot I25.10 ATHSCL HEART DISEASE OF [place] CORONARY 05/02/2017 CRUZ DO, JANEEN Ot N18.2 CHRONIC KIDNEY DISEASE, STAGE 2 (MILD) 05/02/2017 CRUZ DO, JANEEN Ot R07.9 CHEST PAIN, UNSPECIFIED 05/02/2017 CRUZ DO, JANEEN Ot Z79.02 NURSING HOME (CURRENT) USE OF ANTITHROMBOTI 05/02/2017 JAYCEE DO, JANEEN Ot Z79.84 AWS DEVELOPER (CURRENT) USE OF ORAL HYPOGLYC 05/02/2017 CRUZ DO, JANEEN Ot Z79.89 9 OTHER AWS DEVELOPER (CURRENT) DRUG THERAPY 05/02/2017 JAYCEE DO JANEEN Ot Z95.5 PRESENCE OF CORONARY ANGIOPLASTY IMPLANT 05/02/2017 JAYCEE DO JANEEN Ot E11.40 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 WITH DIABETIC N 05/02/2017 CRUZ DO, JANEEN Ot G47.33 OBSTRUCTIVE SLEEP APNEA (ADULT) (PEDIATR 05/02/2017 CRUZ DO, JANEEN Ot I12.9 HYPERTENSIVE CHRONIC KIDNEY DISEASE W ST 05/02/2017 CRUZ DO, JANEEN Ot I25.10 ATHSCL HEART DISEASE OF [place] CORONARY 05/02/2017 CRUZ DO, JANEEN Ot N18.2 CHRONIC KIDNEY DISEASE, STAGE 2 (MILD) 05/02/2017 CRUZ DO, JANEEN Ot R07.9 CHEST PAIN, UNSPECIFIED 05/02/2017 CRUZ DO, JANEEN Ot Z79.02 AWS DEVELOPER (CURRENT) USE OF ANTITHROMBOTI 05/02/2017 CRUZ DO, JANEEN Ot Z79.84 AWS DEVELOPER (CURRENT) USE OF ORAL HYPOGLYC 05/02/2017 CRUZ DO JANEEN Ot Z79.89 9 OTHER NURSING HOME (CURRENT) DRUG THERAPY 05/02/2017 CRUZ DO, JANEEN Ot Z95.5 PRESENCE OF CORONARY ANGIOPLASTY IMPLANT 05/05/2017 CRUZ DO, JANEEN Ot E11.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 DRILL OPERATOR 05/05/2017 CRUZ DO, JANEEN Ot E78.5 HYPERLIPIDEMIA, UNSPECIFIED 05/05/2017 CRUZ DO, JANEEN Ot G47.33 OBSTRUCTIVE SLEEP APNEA (ADULT) (PEDIATR 05/05/2017 CRUZ DO, JANEEN Ot I12.9 HYPERTENSIVE CHRONIC KIDNEY DISEASE W ST 05/05/2017 CRUZ DO, JANEEN Ot I25.11 0 ATHSCL HEART DISEASE OF [place] COR ART W 05/05/2017 CRUZ DO, JANEEN Ot J44.9 CHRONIC OBSTRUCTIVE PULMONARY DISEASE, U 05/05/2017 CRUZ DO, JANEEN Ot N18.9 CHRONIC KIDNEY DISEASE, UNSPECIFIED 05/05/2017 CRUZ DO, JANEEN Ot Z79.89 9 OTHER NURSING HOME (CURRENT) DRUG THERAPY 05/05/2017 CRUZ DO, JANEEN Ot Z82.49 FAMILY HX OF [place] HEART DIS AND OTH DI 05/06/2017 CRUZ DO, JANEEN Ot E11.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 DRILL OPERATOR 05/06/2017 CRUZ DO, JANEEN Ot E78.5 HYPERLIPIDEMIA, UNSPECIFIED 05/06/2017 CRUZ DO, JANEEN Ot G47.33 OBSTRUCTIVE SLEEP APNEA (ADULT) (PEDIATR 05/06/2017 CRUZ DO, JANEEN Ot I12.9 HYPERTENSIVE CHRONIC KIDNEY DISEASE W ST 05/06/2017 CRUZ DO, JANEEN Ot I25.11 0 ATHSCL HEART DISEASE OF [place] COR ART W 05/06/2017 CRUZ DO, JANEEN Ot J44.9 CHRONIC OBSTRUCTIVE PULMONARY DISEASE, U 05/06/2017 CRUZ DO, JANEEN Ot N18.9 CHRONIC KIDNEY DISEASE, UNSPECIFIED 05/06/2017 CRUZ DO, JANEEN Ot Z79.89 9 OTHER NURSING HOME (CURRENT) DRUG THERAPY 05/06/2017 CRUZ DO, JANEEN Ot Z82.49 FAMILY HX OF [place] HEART DIS AND OTH DI 05/13/2017 DONITA PEDRAZA, BRI [place] Ot M54.6 PAIN IN THORACIC SPINE 05/14/2017 Almaz SROENSEN MD Ot E11 .9 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 WITHOUT COMPLIC 05/14/2017 EDU PEDRAZA M DAVE Ot I10 ESSENTIAL (PRIMARY) HYPERTENSION 05/14/2017 EDU PEDRAZA M DAVE Ot R00 .1 BRADYCARDIA, UNSPECIFIED 05/14/2017 EDU PEDRAZA M DAVE Ot R07.89 OTHER CHEST PAIN 05/14/2017 EDU PEDRAZA, M DAVE Ot E11 .9 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 WITHOUT COMPLIC 05/14/2017 EDU PEDRAZA M DAVE Ot I10 ESSENTIAL (PRIMARY) HYPERTENSION 05/14/2017 EDU PEDRAZA M DAVE Ot R00 .1 BRADYCARDIA, UNSPECIFIED 05/14/2017 EDU PEDRAZA M DAVE Ot R07.89 OTHER CHEST PAIN 05/16/2017 EDU PEDRAZA M DAVE Ot R00 .1 BRADYCARDIA, UNSPECIFIED 05/16/2017 EDU PEDRAZA M DAVE Ot R07.89 OTHER CHEST PAIN 05/17/2017 EDU PEDRAZA M DAVE Ot R00 .1 BRADYCARDIA, UNSPECIFIED 05/17/2017 EDU PEDRAZA M DAVE Ot R07.89 OTHER CHEST PAIN 05/21/2017 EDU PEDRAZA M DAVE Ot E11 .9 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 WITHOUT COMPLIC 05/21/2017 EDU PEDRAZA M DAVE Ot I10 ESSENTIAL (PRIMARY) HYPERTENSION 05/21/2017 EDU PEDRAZA M DAVE Ot R00 .1 BRADYCARDIA, UNSPECIFIED 05/21/2017 EDU PEDRAZA M DAVE Ot R07.89 OTHER CHEST PAIN 05/21/2017 EDU PEDRAZA, M DAVE Ot E11 .9 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 WITHOUT COMPLIC 05/21/2017 EDU PEDRAZA M DAVE Ot I10 ESSENTIAL (PRIMARY) HYPERTENSION 05/21/2017 EDU PEDRAZA M DAVE Ot R00 .1 BRADYCARDIA, UNSPECIFIED 05/21/2017 EDU PEDRAZA M DAVE Ot R07.89 OTHER CHEST PAIN 05/23/2017 EDU PEDRAZA M DAVE Ot R00 .1 BRADYCARDIA, UNSPECIFIED 05/23/2017 EDU PEDRAZA M DAVE Ot R07.89 OTHER CHEST PAIN 05/23/2017 EDU PEDRAZA, Almaz ACOSTA Ot R00 .1 BRADYCARDIA, UNSPECIFIED 05/23/2017 EDU PEDRAZA, Almaz ACOSTA Ot R07.89 OTHER CHEST PAIN 05/23/2017 EDU PEDRAZA, Almaz ACOSTA Ot R00 .1 BRADYCARDIA, UNSPECIFIED 05/23/2017 EDU PEDRAZA, Almaz ACOSTA Ot R07.89 OTHER CHEST PAIN 05/23/2017 EDU PEDRAZA, Almaz ACOSTA Ot R00 .1 BRADYCARDIA, UNSPECIFIED 05/23/2017 EDU PEDRAZA, Almaz ACOSTA Ot R07.89 OTHER CHEST PAIN 08/20/2017 Almaz SORENSEN MD Ot R00 .1 BRADYCARDIA, UNSPECIFIED 08/20/2017 Almaz SORENSEN MD Ot R07.89 OTHER CHEST PAIN 08/21/2017 Almaz SORENSEN MD Ot R00 .1 BRADYCARDIA, UNSPECIFIED 08/21/2017 Almaz SORENSEN MD Ot R07.89 OTHER CHEST PAIN 09/08/2017 ANTONIO PEDRAZA, JUNE Valdivia Ot 478.19 OTHER DISEASE OF NASAL CAVITY AND SINUSE 09/08/2017 JUNE ALVAREZ MD Ot 780 .4 DIZZINESS AND GIDDINESS 09/08/2017 Ot 427.89 CAR DIAC DYSRHYTHMIAS NEC 09/08/2017 AIME PEDRAZA, SATHISH Schaffer Ot 722.5 1 THORACIC DISC DEGEN 09/08/2017 SATHISH SALMOON MD Ot 723.0 CERVICAL SPINAL STENOSIS 09/08/2017 Almaz SORENSEN MD Ot E11 .9 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 WITHOUT COMPLIC 09/08/2017 Almaz SORENSEN MD Ot I10 ESSENTIAL (PRIMARY) HYPERTENSION 09/08/2017 Almaz SORENSEN MD Ot R00 .1 BRADYCARDIA, UNSPECIFIED 09/08/2017 Almaz SORENSEN MD Ot R07.89 OTHER CHEST PAIN 09/08/2017 Almaz SORENSEN MD Ot E11 .9 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 WITHOUT COMPLIC 09/08/2017 Almaz SORENSEN MD Ot I10 ESSENTIAL (PRIMARY) HYPERTENSION 09/08/2017 Almaz SORENSEN MD Ot R00 .1 BRADYCARDIA, UNSPECIFIED 09/08/2017 Almaz SORENSEN MD Ot R07.89 OTHER CHEST PAIN 09/08/2017 Almaz SORENSEN MD Ot R00 .1 BRADYCARDIA, UNSPECIFIED 09/08/2017 Almaz SORENSEN MD Ot R07.89 OTHER CHEST PAIN 09/16/2017 EDU PEDRAZA, Almaz ACOSTA Ot I25.10 ATHSCL HEART DISEASE OF [place] CORONARY 09/16/2017 Almaz SORENSEN MD Ot 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 10/27/2017 Almaz SORENSEN MD Ot I25.10 ATHSCL HEART DISEASE OF [place] CORONARY 10/27/2017 Almaz SORENSEN MD Ot 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 11/19/2017 Almaz SORENSEN MD Ot I25.10 ATHSCL HEART DISEASE OF [place] CORONARY 11/19/2017 EDU PEDRAZA, Almaz ACOSTA Ot 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 12/10/2017 Almaz SORENSEN MD Ot I25.10 ATHSCL HEART DISEASE OF [place] CORONARY 12/10/2017 Almaz SORENSEN MD Ot 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 12/10/2017 ANTONIO PEDRAZA, JUNE Valdivia Ot 478.19 OTHER DISEASE OF NASAL CAVITY AND SINUSE 12/10/2017 ANTONIO PEDRAZA, JUNE Valdivia Ot 780 .4 DIZZINESS AND GIDDINESS 12/10/2017 Ot 427.89 CAR DIAC DYSRHYTHMIAS NEC 12/10/2017 SATHISH SALOMON MD Ot 722.5 1 THORACIC DISC DEGEN 12/10/2017 SATHISH SALOMON MD Ot 723.0 CERVICAL SPINAL STENOSIS 12/10/2017 Almaz SORENSEN MD Ot E11 .9 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 WITHOUT COMPLIC 12/10/2017 Almaz SORENSEN MD Ot I10 ESSENTIAL (PRIMARY) HYPERTENSION 12/10/2017 Almaz SORENSEN MD Ot R00 .1 BRADYCARDIA, UNSPECIFIED 12/10/2017 Almaz SORENSEN MD Ot R07.89 OTHER CHEST PAIN 12/10/2017 Almaz SORENSEN MD Ot E11 .9 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 WITHOUT COMPLIC 12/10/2017 EDU PEDRAZA, Almaz ACOSTA Ot I10 ESSENTIAL (PRIMARY) HYPERTENSION 12/10/2017 EDU PEDRAZA, M DAVE Ot R00 .1 BRADYCARDIA, UNSPECIFIED 12/10/2017 EDU PEDRAZA, Almaz ACOSTA Ot R07.89 OTHER CHEST PAIN 12/10/2017 EDU PEDRAZA, Almaz ACOSTA Ot R00 .1 BRADYCARDIA, UNSPECIFIED 12/10/2017 EDU PEDRAZA, Almaz ACOSTA Ot R07.89 OTHER CHEST PAIN 12/10/2017 EDU PEDRAZA, M DAVE Ot I25.10 ATHSCL HEART DISEASE OF [place] CORONARY 12/10/2017 EDU PEDRAZA, M DAVE Ot 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 12/10/2017 EDU PEDRAZA, Almaz ACOSTA Ot I25.10 ATHSCL HEART DISEASE OF [place] CORONARY 12/10/2017 EDU PEDRAZA, M DAVE Ot 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 12/10/2017 Ot 427.89 CAR DIAC DYSRHYTHMIAS NEC 12/10/2017 EDU PEDRAZA, Almaz ACOSTA Ot R00 .1 BRADYCARDIA, UNSPECIFIED 12/10/2017 EDU PEDRAZA, Almaz ACOSTA Ot R07.89 OTHER CHEST PAIN 12/11/2017 JAYCEE DO, JANEEN Ot E11.42 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 WITH DIABETIC P 12/11/2017 CRUZ DO, JANEEN Ot E66.9 OBESITY, UNSPECIFIED 12/11/2017 CRUZ DO, JANEEN Ot E78.5 HYPERLIPIDEMIA, UNSPECIFIED 12/11/2017 CRUZ DO, JANEEN Ot G47.33 OBSTRUCTIVE SLEEP APNEA (ADULT) (PEDIATR 12/11/2017 CRUZ DO, JANEEN Ot I12.9 HYPERTENSIVE CHRONIC KIDNEY DISEASE W ST 12/11/2017 CRUZ DO, JANEEN Ot I25.11 9 ATHSCL HEART DISEASE OF [place] COR ART W 12/11/2017 CRUZ DO, JANEEN Ot N18.9 CHRONIC KIDNEY DISEASE, UNSPECIFIED 12/11/2017 CRUZ DO, JANEEN Ot R07.89 OTHER CHEST PAIN 12/11/2017 CRUZ DO, JANEEN Ot Z68.36 BODY MASS INDEX (BMI) 36.0-36.9, ADULT 12/11/2017 CRUZ DO, JANEEN Ot Z79.4 NURSING HOME (CURRENT) USE OF INSULIN 12/11/2017 CRUZ DO, JANEEN Ot Z88.0 ALLERGY STATUS TO PENICILLIN 12/11/2017 CRUZ DO, JANEEN Ot Z95.5 PRESENCE OF CORONARY ANGIOPLASTY IMPLANT 12/16/2017 CRUZ DO JANEEN Ot E11.42 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 WITH DIABETIC P 12/16/2017 CRUZ DO, JANEEN Ot E66.9 OBESITY, UNSPECIFIED 12/16/2017 CRUZ DO, JANEEN Ot E78.5 HYPERLIPIDEMIA, UNSPECIFIED 12/16/2017 CRUZ DO, JANEEN Ot G47.33 OBSTRUCTIVE SLEEP APNEA (ADULT) (PEDIATR 12/16/2017 CRUZ DO, JANEEN Ot I12.9 HYPERTENSIVE CHRONIC KIDNEY DISEASE W ST 12/16/2017 CRUZ DO JANEEN Ot I25.11 9 ATHSCL HEART DISEASE OF [place] COR ART W 12/16/2017 JAYCEE MILNER JANEEN Ot N18.9 CHRONIC KIDNEY DISEASE, UNSPECIFIED 12/16/2017 JAYCEE MILNER JANEEN Ot R07.89 OTHER CHEST PAIN 12/16/2017 CRUZ DO JANEEN Ot Z68.36 BODY MASS INDEX (BMI) 36.0-36.9, ADULT 12/16/2017 JAYCEE MILNER JANEEN Ot Z79.4 AWS DEVELOPER (CURRENT) USE OF INSULIN 12/16/2017 JAYCEE MILNER JANEEN Ot Z88.0 ALLERGY STATUS TO PENICILLIN 12/16/2017 JAYCEE MILNER JANEEN Ot Z95.5 PRESENCE OF CORONARY ANGIOPLASTY IMPLANT 01/09/2018 FADY SORENSEN MD Ot E11.65 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 WITH HYPERGLYCE 01/09/2018 FADY SORENSEN MD Ot I12 .9 HYPERTENSIVE CHRONIC KIDNEY DISEASE W ST 01/09/2018 FADY SORENSEN MD Ot N18 .2 CHRONIC KIDNEY DISEASE, STAGE 2 (MILD) 01/09/2018 FADY SORENSEN MD Ot N28 .1 CYST OF KIDNEY, ACQUIRED 01/19/2018 FADY SORENSEN MD, Ot E11.65 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 WITH HYPERGLYCE 01/19/2018 FADY SORENSEN MD Ot I12 .9 HYPERTENSIVE CHRONIC KIDNEY DISEASE W ST 01/19/2018 FADY SORENSEN MD Ot N18 .2 CHRONIC KIDNEY DISEASE, STAGE 2 (MILD) 01/19/2018 FADY SORENSEN MD Ot N28 .1 CYST OF KIDNEY, ACQUIRED 04/07/2018 Ot E11.65 TYP E 2 DIABETES MELLITUS WITH HYPERGLYCE 04/07/2018 Ot E78.00 PUR E HYPERCHOLESTEROLEMIA, UNSPECIFIED 04/07/2018 Ot E78.1 PURE HYPERGLYCERIDEMIA 04/07/2018 Ot Z00.00 ENC NTR FOR GENERAL ADULT MEDICAL EXAM W04/17/2018 Ot E11.65 TYP E 2 DIABETES MELLITUS WITH HYPERGLYCE 04/17/2018 Ot E78.00 PUR E HYPERCHOLESTEROLEMIA, UNSPECIFIED 04/17/2018 Ot E78.1 PURE HYPERGLYCERIDEMIA 04/17/2018 Ot Z00.00 ENC NTR FOR GENERAL ADULT MEDICAL EXAM W06/04/2018 EDU PEDRAZA, Almaz ACOSTA Ot E66 .9 OBESITY, UNSPECIFIED 06/04/2018 Almaz SORENSEN MD Ot I10 ESSENTIAL (PRIMARY) HYPERTENSION 06/04/2018 EDU PEDRAZA, Almaz ACOSTA Ot I25.10 ATHSCL HEART DISEASE OF [place] CORONARY 06/04/2018 Almaz SORENSEN MD Ot I47 .1 SUPRAVENTRICULAR TACHYCARDIA 06/04/2018 Almaz SORENSEN MD Ot 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 06/04/2018 Almaz SORENSEN MD Ot R00 .1 BRADYCARDIA, UNSPECIFIED 06/18/2018 FADY SORENSEN MD Ot E11.65 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 WITH HYPERGLYCE 06/18/2018 FADY SORENSEN MD Ot I12 .9 HYPERTENSIVE CHRONIC KIDNEY DISEASE W ST 06/18/2018 FADY SORENSEN MD Ot N18 .2 CHRONIC KIDNEY DISEASE, STAGE 2 (MILD) 08/12/2018 CRUZ DO, JANEEN Ot E11.65 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 WITH HYPERGLYCE 08/12/2018 CRUZ DO, JANEEN Ot E78.00 PURE HYPERCHOLESTEROLEMIA, UNSPECIFIED 08/12/2018 CRUZ DO, JANEEN Ot E78.1 PURE HYPERGLYCERIDEMIA 08/12/2018 CRUZ DO, JANEEN Ot Z00.00 ENCNTR FOR GENERAL ADULT MEDICAL EXAM W08/14/2018 CRUZ DO, JANEEN Ot E11.65 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 WITH HYPERGLYCE 08/14/2018 CRUZ DO, JANEEN Ot E78.00 PURE HYPERCHOLESTEROLEMIA, UNSPECIFIED 08/14/2018 CRUZ DO, JANEEN Ot E78.1 PURE HYPERGLYCERIDEMIA 08/14/2018 CRUZ DO, JANEEN Ot Z00.00 ENCNTR FOR GENERAL ADULT MEDICAL EXAM W08/21/2018 CRUZ DO, JANEEN Ot E11.65 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 WITH HYPERGLYCE 08/21/2018 CRUZ DO, JANEEN Ot E78.00 PURE HYPERCHOLESTEROLEMIA, UNSPECIFIED 08/21/2018 CRUZ DO, JANEEN Ot E78.1 PURE HYPERGLYCERIDEMIA 08/21/2018 CRUZ DO, JANEEN Ot Z00.00 ENCNTR FOR GENERAL ADULT MEDICAL EXAM W09/04/2018 JAYCEE DO JANEEN Ot E11.9 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 WITHOUT COMPLIC 09/04/2018 CRUZ DO JANEEN Ot E66.9 OBESITY, UNSPECIFIED 09/04/2018 CRUZ DO, JANEEN Ot E78.00 PURE HYPERCHOLESTEROLEMIA, UNSPECIFIED 09/04/2018 JAYCEE DO JANEEN Ot E78.5 HYPERLIPIDEMIA, UNSPECIFIED 09/04/2018 JAYCEE DO JANEEN Ot G47.33 OBSTRUCTIVE SLEEP APNEA (ADULT) (PEDIATR 09/04/2018 JAYCEE MILNER JANEEN Ot I12.9 HYPERTENSIVE CHRONIC KIDNEY DISEASE W ST 09/04/2018 JAYCEE MILNER JANEEN Ot I25.11 8 ATHSCL HEART DISEASE OF [place] COR ART W 09/04/2018 JAYCEE MILNER JANEEN Ot M79.66 2 PAIN IN LEFT LOWER LEG 09/04/2018 JAYCEE MILNER JANEEN Ot N18.9 CHRONIC KIDNEY DISEASE, UNSPECIFIED 09/04/2018 JAYCEE MILNER JANEEN Ot R00.1 BRADYCARDIA, UNSPECIFIED 09/04/2018 JAYCEE MILNER JANEEN Ot R07.9 CHEST PAIN, UNSPECIFIED 09/04/2018 JAYCEE MILNER JANEEN Ot Z79.4 AWS DEVELOPER (CURRENT) USE OF INSULIN 09/04/2018 NIKO CRUZ DOI Ot Z79.82 AWS DEVELOPER (CURRENT) USE OF ASPIRIN 09/04/2018 NIKO CRUZ DOI Ot Z79.89 9 OTHER NURSING HOME (CURRENT) DRUG THERAPY 09/04/2018 JANEEN CRUZ DO Ot Z87.89 1 PERSONAL HISTORY OF NICOTINE DEPENDENCE 09/04/2018 CRUZ DO, JANEEN Ot Z88.0 ALLERGY STATUS TO PENICILLIN 09/04/2018 JAYCEE MILNER JANEEN Ot Z95.5 PRESENCE OF CORONARY ANGIOPLASTY IMPLANT 09/04/2018 JAYCEE MILNER JANEEN Ot E11.9 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 WITHOUT COMPLIC 09/04/2018 JAYCEE MILNER JANEEN Ot E66.9 OBESITY, UNSPECIFIED 09/04/2018 CRUZ DO, JANEEN Ot E78.00 PURE HYPERCHOLESTEROLEMIA, UNSPECIFIED 09/04/2018 CRUZ DO JANEEN Ot E78.5 HYPERLIPIDEMIA, UNSPECIFIED 09/04/2018 CRUZ DO JANEEN Ot G47.33 OBSTRUCTIVE SLEEP APNEA (ADULT) (PEDIATR 09/04/2018 JAYCEE MILNER JANEEN Ot I12.9 HYPERTENSIVE CHRONIC KIDNEY DISEASE W ST 09/04/2018 JAYCEE MILNER JANEEN Ot I25.11 8 ATHSCL HEART DISEASE OF [place] [facility] ART W 09/04/2018 JAYCEE MILNER JANEEN Ot M79.66 2 PAIN IN LEFT LOWER LEG 09/04/2018 JAYCEE MILNER JANEEN Ot N18.9 CHRONIC KIDNEY DISEASE, UNSPECIFIED 09/04/2018 JAYCEE MILNER JANEEN Ot R00.1 BRADYCARDIA, UNSPECIFIED 09/04/2018 JAYCEE MILNER JANEEN Ot R07.9 CHEST PAIN, UNSPECIFIED 09/04/2018 JAYCEE MILNER JANEEN Ot Z79.4 [employer] DEVELOPER (CURRENT) USE OF INSULIN 09/04/2018 JAYCEE MILNER JANEEN Ot Z79.82 NURSING HOME (CURRENT) USE OF ASPIRIN 09/04/2018 JAYCEE MILNER JANEEN Ot Z79.89 9 OTHER [employer] DEV[employer] (CURRENT) DRUG THERAPY 09/04/2018 JAYCEE MILNER JANEEN Ot Z87.89 1 PERSONAL HISTORY OF NICOTINE DEPENDENCE 09/04/2018 JAYCEE MILNER JANEEN Ot Z88.0 ALLERGY STATUS TO PENICILLIN 09/04/2018 JAYCEE MILNER JANEEN Ot Z95.5 PRESENCE OF CORONARY ANGIOPLASTY IMPLANT 09/16/2018 Ot 427.89 CAR DIAC DYSRHYTHMIAS NEC 09/16/2018 EDU PEDRAZA, Almaz ACOSTA Ot R00 .1 BRADYCARDIA, UNSPECIFIED 09/16/2018 EDU PEDRAZA, Almaz ACOSTA Ot R07.89 OTHER CHEST PAIN 09/16/2018 AIME PEDRAZA, SATHISH Schaffer Ot Z01.8 18 ENCOUNTER FOR OTHER PREPROCEDURAL EXAMIN 10/12/2018 SATHISH SALOMON MD Ot Z01.8 18 ENCOUNTER FOR OTHER PREPROCEDURAL EXAMIN 10/13/2018 SATHISH SALOMON MD, Ot Z01.8 18 ENCOUNTER FOR OTHER PREPROCEDURAL EXAMIN 10/20/2018 SATHISH SALOMON MD, Ot 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 10/20/2018 SATHISH SALOMON MD, Ot E11.4 0 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 WITH DIABETIC N 10/20/2018 SATHISH SALOMON MD Ot E66.9 OBESITY, UNSPECIFIED 10/20/2018 SATHISH SALOMON MD Ot E78.2 MIXED HYPERLIPIDEMIA 10/20/2018 SATHISH SALOMON MD, Ot G47.3 3 OBSTRUCTIVE SLEEP APNEA (ADULT) (PEDIATR 10/20/2018 SATHISH SALOMON MD, Ot I12.9 HYPERTENSIVE CHRONIC KIDNEY DISEASE W ST 10/20/2018 SATHISH SALOMON MD Ot I25.1 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[place] [facility] ART W 10/20/2018 SATHISH SALOMON MD Ot K21.9 GASTRO-ESOPHAGEAL REFLUX DISEASE WITHOUT 10/20/2018 SATHISH SALOMON MD Ot M46.1 SACROILIITIS, NOT ELSEWHERE CLASSIFIED 10/20/2018 SATHISH SALOMON MD Ot M48.0 61 SPINAL STENOSIS, LUMBAR REGION WITHOUT N 10/20/2018 SATHISH SALOMON MD Ot M54.1 6 RADICULOPATHY, LUMBAR REGION 10/20/2018 SATHISH SALOMON MD Ot N18.2 CHRONIC KIDNEY DISEASE, STAGE 2 (MILD) 10/20/2018 SATHISH SALOMON MD Ot Q61.3 POLYCYSTIC KIDNEY, UNSPECIFIED 10/20/2018 SATHISH SALOMON MD Ot Z68.3 6 BODY MASS INDEX (BMI) 36.0-36.9, ADULT 10/20/2018 SATHISH SALOMON MD Ot Z79.4 [employer] DEVELOPER (CURRENT) USE OF INSULIN 10/20/2018 SATHISH SALOMON MD Ot Z79.8 2 [employer] DEVELOPER (CURRENT) USE OF ASPIRIN 10/20/2018 SATHISH SALOMON MD, Ot Z79.8 99 OTHER [employer] DEV[employer] (CURRENT) DRUG THERAPY 10/20/2018 SATHISH SALOMON MD Ot Z88.0 ALLERGY STATUS TO PENICILLIN 10/20/2018 SATHISH SALOMON MD Ot Z95.5 PRESENCE OF CORONARY ANGIOPLASTY IMPLANT 10/27/2018 SATHISH SALOMON MD Ot M46.1 SACROILIITIS, NOT ELSEWHERE CLASSIFIED 10/27/2018 SATHISH SALOMON MD Ot M48.0 61 SPINAL STENOSIS, LUMBAR REGION WITHOUT N 10/27/2018 SATHISH SALOMON MD Ot M54.1 6 RADICULOPATHY, LUMBAR REGION 10/29/2018 SATHISH SALOMON MD Ot 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 10/29/2018 SATHISH SALOMON MD Ot E11.4 0 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 WITH DIABETIC N 10/29/2018 SATHISH SALOMON MD Ot G47.3 3 OBSTRUCTIVE SLEEP APNEA (ADULT) (PEDIATR 10/29/2018 SATHISH SALOMON MD Ot I12.9 HYPERTENSIVE CHRONIC KIDNEY DISEASE W ST 10/29/2018 SATHISH SALOMON MD Ot I25.1 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[place] [facility] ART W 10/29/2018 SATHISH SALOMON MD Ot K21.9 GASTRO-ESOPHAGEAL REFLUX DISEASE WITHOUT 10/29/2018 SATHISH SALOMON MD Ot M46.1 SACROILIITIS, NOT ELSEWHERE CLASSIFIED 10/29/2018 SATHISH SALOMON MD Ot M48.0 61 SPINAL STENOSIS, LUMBAR REGION WITHOUT N 10/29/2018 SATHISH SALOMON MD Ot M54.1 6 RADICULOPATHY, LUMBAR REGION 10/29/2018 SATHISH SALOMON MD Ot N18.2 CHRONIC KIDNEY DISEASE, STAGE 2 (MILD) 10/29/2018 SATHISH SALOMON MD Ot Q61.3 POLYCYSTIC KIDNEY, UNSPECIFIED 10/29/2018 SATHISH SALOMON MD Ot Z79.4 [employer] DEVELOPER (CURRENT) USE OF INSULIN 10/29/2018 SATHISH SALOMON MD Ot Z79.8 2 [employer] DEVELOPER (CURRENT) USE OF ASPIRIN 10/29/2018 SATHISH SALOMON MD Ot Z79.8 99 OTHER [employer] DEVELOPER (CURRENT) DRUG THERAPY 10/29/2018 SATHISH SALOMON MD Ot Z88.0 ALLERGY STATUS TO PENICILLIN 10/29/2018 SATHISH SALOOMN MD Ot Z95.5 PRESENCE OF CORONARY ANGIOPLASTY IMPLANT 11/01/2018 SATHISH SALOMON MD Ot 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 11/01/2018 SATHISH SALOMON MD, Ot E11.4 0 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 WITH DIABETIC N 11/01/2018 SATHISH SALOMON MD Ot G47.3 3 OBSTRUCTIVE SLEEP APNEA (ADULT) (PEDIATR 11/01/2018 SATHISH SALOMON MD Ot I12.9 HYPERTENSIVE CHRONIC KIDNEY DISEASE W ST 11/01/2018 SATHISH SALOMON MD Ot I25.1 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[place] [facility] ART W 11/01/2018 SATHISH SALOMON MD Ot K21.9 GASTRO-ESOPHAGEAL REFLUX DISEASE WITHOUT 11/01/2018 SATHISH SALOMON MD, Ot M46.1 SACROILIITIS, NOT ELSEWHERE CLASSIFIED 11/01/2018 SATHISH SALOMON MD Ot M48.0 61 SPINAL STENOSIS, LUMBAR REGION WITHOUT N 11/01/2018 SATHISH SALOMON MD Ot M54.1 6 RADICULOPATHY, LUMBAR REGION 11/01/2018 SATHISH SALOMON MD Ot N18.2 CHRONIC KIDNEY DISEASE, STAGE 2 (MILD) 11/01/2018 SATHISH SALOMON MD Ot Q61.3 POLYCYSTIC KIDNEY, UNSPECIFIED 11/01/2018 SATHISH SALOMON MD Ot Z79.4 NURSING HOME (CURRENT) USE OF INSULIN 11/01/2018 SATHISH SALOMON MD Ot Z79.8 2 AWS DEVELOPER (CURRENT) USE OF ASPIRIN 11/01/2018 SATHISH SALOMON MD Ot Z79.8 99 OTHER AWS DEVELOPER (CURRENT) DRUG THERAPY 11/01/2018 SATHISH SALOMON MD Ot Z88.0 ALLERGY STATUS TO PENICILLIN 11/01/2018 SATHISH SALOMON MD Ot Z95.5 PRESENCE OF CORONARY ANGIOPLASTY IMPLANT 11/12/2018 SATHISH SALOMON MD Ot 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 11/12/2018 SATHISH SALOMON MD Ot E11.4 0 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 WITH DIABETIC N 11/12/2018 SATHISH SALOMON MD Ot E66.9 OBESITY, UNSPECIFIED 11/12/2018 SATHISH SALOMON MD Ot E78.2 MIXED HYPERLIPIDEMIA 11/12/2018 SATHISH SALOMON MD Ot G47.3 3 OBSTRUCTIVE SLEEP APNEA (ADULT) (PEDIATR 11/12/2018 SATHISH SALOMON MD Ot I12.9 HYPERTENSIVE CHRONIC KIDNEY DISEASE W ST 11/12/2018 SATHISH SALOMON MD, Ot I25.1 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[place] [facility] ART W 11/12/2018 SATHISH SALOMON MD, Ot K21.9 GASTRO-ESOPHAGEAL REFLUX DISEASE WITHOUT 11/12/2018 SATHISH SALOMON MD, Ot M46.1 SACROILIITIS, NOT ELSEWHERE CLASSIFIED 11/12/2018 SATHISH SALOMON MD, Ot M48.0 61 SPINAL STENOSIS, LUMBAR REGION WITHOUT N 11/12/2018 SATHISH SALOMON MD, Ot M54.1 6 RADICULOPATHY, LUMBAR REGION 11/12/2018 SATHISH SALOMON MD, Ot N18.2 CHRONIC KIDNEY DISEASE, STAGE 2 (MILD) 11/12/2018 SATHISH SALOMON MD, Ot Q61.3 POLYCYSTIC KIDNEY, UNSPECIFIED 11/12/2018 SATHISH SALOMON MD, Ot Z68.3 6 BODY MASS INDEX (BMI) 36.0-36.9, ADULT 11/12/2018 SATHISH SALOMON MD, Ot Z79.4 AWS DEVELOPER (CURRENT) USE OF INSULIN 11/12/2018 SATHISH SALOMON MD, Ot Z79.8 2 NURSING HOME (CURRENT) USE OF ASPIRIN 11/12/2018 SATHISH SALOMON MD, Ot Z79.8 99 OTHER NURSING HOME (CURRENT) DRUG THERAPY 11/12/2018 SATHISH SALOMON MD, Ot Z88.0 ALLERGY STATUS TO PENICILLIN 11/12/2018 SATHISH SALOMON MD Ot Z95.5 PRESENCE OF CORONARY ANGIOPLASTY IMPLANT 12/01/2018 JANEEN CRUZ DO Ot E11.65 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 WITH HYPERGLYCE 12/01/2018 JANEEN CRUZ DO Ot E78.00 PURE HYPERCHOLESTEROLEMIA, UNSPECIFIED 12/01/2018 JANEEN CRUZ DO Ot E78.1 PURE HYPERGLYCERIDEMIA 12/01/2018 JANEEN CRUZ DO Ot Z00.00 ENCNTR FOR GENERAL ADULT MEDICAL EXAM W/ 12/09/2018 Ot 427.89 CAR DIAC DYSRHYTHMIAS NEC 12/09/2018 Almaz SORENSEN MD Ot R00 .1 BRADYCARDIA, UNSPECIFIED 12/09/2018 Almaz SORENSEN MD Ot R07.89 OTHER CHEST PAIN 12/10/2018 EDU PEDRAZA, M DAVE Ot E11 .9 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 WITHOUT COMPLIC 12/10/2018 EDU PEDRAZA M DAVE Ot E78 .5 HYPERLIPIDEMIA, UNSPECIFIED 12/10/2018 EDU PEDRAZA M DAVE Ot I10 ESSENTIAL (PRIMARY) HYPERTENSION 12/10/2018 EDU PEDRAZA, M DAVE Ot I20 .0 UNSTABLE ANGINA 12/10/2018 EDU PEDRAZA, M DAVE Ot I47 .1 SUPRAVENTRICULAR TACHYCARDIA 12/10/2018 EDU PEDRAZA, M DAVE Ot M79.605 PAIN IN LEFT LEG 12/10/2018 Almaz SORENSEN MD Ot R00 .1 BRADYCARDIA, UNSPECIFIED 12/10/2018 Almaz SORENSEN MD Ot Z82.49 FAMILY HX OF ISCHEM HEART DIS AND OTH DI 12/10/2018 Almaz SORENSEN MD Ot Z88 .0 ALLERGY STATUS TO PENICILLIN 12/11/2018 EDU PEDRAZA M DAVE Ot E11 .9 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 WITHOUT COMPLIC 12/11/2018 EDU PEDRAZA M DAVE Ot E78 .5 HYPERLIPIDEMIA, UNSPECIFIED 12/11/2018 EDU PEDRAZA M DAVE Ot I10 ESSENTIAL (PRIMARY) HYPERTENSION 12/11/2018 EDU PEDRAZA M DAVE Ot I20 .0 UNSTABLE ANGINA 12/11/2018 EDU PEDRAZA M DAVE Ot I47 .1 SUPRAVENTRICULAR TACHYCARDIA 12/11/2018 EDU PEDRAZA M DAVE Ot M79.605 PAIN IN LEFT LEG 12/11/2018 EDU PEDRAZA M DAVE Ot R00 .1 BRADYCARDIA, UNSPECIFIED 12/11/2018 EDU PEDRAZA M DAVE Ot Z82.49 FAMILY HX OF ISCHEM HEART DIS AND OTH DI 12/11/2018 Almaz SORENSEN MD Ot Z88 .0 ALLERGY STATUS TO PENICILLIN 12/12/2018 EDU PEDRAZA M DAVE Ot E11 .9 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 WITHOUT COMPLIC 12/12/2018 EDU PEDRAZA M DAVE Ot E78 .5 HYPERLIPIDEMIA, UNSPECIFIED 12/12/2018 EDU PEDRAZA, M DAVE Ot I10 ESSENTIAL (PRIMARY) HYPERTENSION 12/12/2018 EDU PEDRAZA, Almaz ACOSTA Ot I20 .0 UNSTABLE ANGINA 12/12/2018 EDU PEDRAZA, Almaz ACOSTA Ot I47 .1 SUPRAVENTRICULAR TACHYCARDIA 12/12/2018 EDU PEDRAZA, Almaz ACOSTA Ot M79.605 PAIN IN LEFT LEG 12/12/2018 EDU PEDRAZA, Almaz ACOSTA Ot R00 .1 BRADYCARDIA, UNSPECIFIED 12/12/2018 EDU PEDRAZA, Almaz ACOSTA Ot Z82.49 FAMILY HX OF ISCHEM HEART DIS AND OTH DI 12/12/2018 EDU PEDRAZA, Almaz ACOSTA Ot Z88 .0 ALLERGY STATUS TO PENICILLIN 12/17/2018 FADY SORENSEN MD Ot N28 .1 CYST OF KIDNEY, ACQUIRED 12/17/2018 CRUZ DO, JANEEN Ot E11.65 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 WITH HYPERGLYCE 12/17/2018 CRUZ DO, JANEEN Ot E78.00 PURE HYPERCHOLESTEROLEMIA, UNSPECIFIED 12/17/2018 CRUZ DO, JANEEN Ot E78.1 PURE HYPERGLYCERIDEMIA 12/17/2018 CRUZ DO, JANEEN Ot Z00.00 ENCNTR FOR GENERAL ADULT MEDICAL EXAM W/ 02/07/2019 EDU PEDRAZA, FADY Murguia Ot E21 .3 HYPERPARATHYROIDISM, UNSPECIFIED 02/07/2019 FADY SORENSEN MD Ot I12 .9 HYPERTENSIVE CHRONIC KIDNEY DISEASE W ST 02/07/2019 FADY SORENSEN MD Ot N18 .2 CHRONIC KIDNEY DISEASE, STAGE 2 (MILD) 02/07/2019 FADY SORENSEN MD Ot N28 .1 CYST OF KIDNEY, ACQUIRED 02/26/2019 FADY SORENSEN MD Ot N28 .1 CYST OF KIDNEY, ACQUIRED 02/26/2019 FADY SORENSEN MD, Ot N28 .1 CYST OF KIDNEY, ACQUIRED 02/26/2019 FADY SORENSEN MD Ot E21 .3 HYPERPARATHYROIDISM, UNSPECIFIED 02/26/2019 FADY OSRENSEN MD Ot I12 .9 HYPERTENSIVE CHRONIC KIDNEY DISEASE W ST 02/26/2019 FADY SORENSEN MD, Ot N18 .2 CHRONIC KIDNEY DISEASE, STAGE 2 (MILD) 02/26/2019 EDU PEDRAZA, FADY R Ot N28 .1 CYST OF KIDNEY, ACQUIRED 03/08/2019 MATEUS GHOTRA APRN Ot E11.9 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 WITHOUT COMPLIC 03/13/2019 NEDA PEDRAZA, IQRA Mcfadden Ot N28.1 CYST OF KIDNEY, ACQUIRED 03/13/2019 NEDA PEDRAZA, IQRA Mcfadden Ot Z90.4 9 ACQUIRED ABSENCE OF OTHER SPECIFIED PART 03/23/2019 DELPAOLO DO, DENTON B Ot Z01.8 18 ENCOUNTER FOR OTHER PREPROCEDURAL EXAMIN 04/05/2019 DELMAN DO, DENTON B Ot Z01.8 18 ENCOUNTER FOR OTHER PREPROCEDURAL EXAMIN 04/05/2019 DELMAN DO, DENTON B Ot Z01.8 18 ENCOUNTER FOR OTHER PREPROCEDURAL EXAMIN 04/06/2019 DELMAN DO, DENTON B Ot Z01.8 18 ENCOUNTER FOR OTHER PREPROCEDURAL EXAMIN 04/09/2019 CRUZ DO, JANEEN Ot E11.65 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 WITH HYPERGLYCE 04/09/2019 CRUZ DO, JANEEN Ot E78.2 MIXED HYPERLIPIDEMIA 04/09/2019 CRUZ DO, JANEEN Ot Z00.00 ENCNTR FOR GENERAL ADULT MEDICAL EXAM W04/13/2019 CRUZ DO, JANEEN Ot E11.65 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 WITH HYPERGLYCE 04/13/2019 CRUZ DO, JANEEN Ot E78.2 MIXED HYPERLIPIDEMIA 04/13/2019 CRUZ DO, JANEEN Ot Z00.00 ENCNTR FOR GENERAL ADULT MEDICAL EXAM W04/20/2019 MARIELLA MILNER, DENTON B Ot E11.9 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 WITHOUT COMPLIC 04/20/2019 MARIELLA MILNER DENTON B Ot E66.9 OBESITY, UNSPECIFIED 04/20/2019 MARIELLA DO, DENTON B Ot G47.3 3 OBSTRUCTIVE SLEEP APNEA (ADULT) (PEDIATR 04/20/2019 MARIELLA MILNER DENTON B Ot I10 ESSENTIAL (PRIMARY) HYPERTENSION 04/20/2019 GELY WOLFF DOIC B Ot I25.1 0 ATHSCL HEART DISEASE OF [place] CORONARY 04/20/2019 GELY WOLFF DOIC B Ot I63.9 CEREBRAL INFARCTION, UNSPECIFIED 04/20/2019 GELY WOLFF DOIC B Ot K57.3 0 DVRTCLOS OF LG INT W/O PERFORATION OR AB 04/20/2019 DENTON WOLFF DO Ot K63.5 POLYP OF COLON 04/20/2019 DENTON WOLFF DO Ot K64.8 OTHER HEMORRHOIDS 04/20/2019 DENTON WOLFF DO Ot Z68.3 6 BODY MASS INDEX (BMI) 36.0-36.9, ADULT 04/20/2019 DENTON WOLFF DO Ot Z79.4 AWS DEVELOPER (CURRENT) USE OF INSULIN 04/20/2019 DENTON WOLFF DO Ot Z79.8 2 NURSING HOME (CURRENT) USE OF ASPIRIN 04/20/2019 DENTON WOLFF DO Ot Z79.8 99 OTHER AWS DEVELOPER (CURRENT) DRUG THERAPY 04/20/2019 DNETON WOLFF DO Ot Z82.3 FAMILY HISTORY OF STROKE 04/20/2019 DENTON WOLFF DO Ot Z82.4 9 FAMILY HX OF ISCHEM HEART DIS AND OTH DI 04/20/2019 DENTON WOLFF DO, Ot Z83.3 FAMILY HISTORY OF DIABETES MELLITUS 04/20/2019 DENTON WOLFF DO Ot Z83.7 9 FAMILY HISTORY OF OTHER DISEASES OF THE 04/20/2019 DENTON WOLFF DO Ot Z88.0 ALLERGY STATUS TO PENICILLIN 04/20/2019 DENTON WOLFF DO Ot Z88.6 ALLERGY STATUS TO ANALGESIC AGENT STATUS 04/20/2019 DENTON WOLFF DO Ot Z88.8 ALLERGY STATUS TO OT DRUG/MEDS/BIOL SUB 04/20/2019 DENTON WOLFF DO Ot Z95.5 PRESENCE OF CORONARY ANGIOPLASTY IMPLANT 04/20/2019 DENTON WOLFF DO Ot 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 05/01/2019 Almaz SORENSEN MD Ot E11 .9 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 WITHOUT COMPLIC 05/01/2019 Almaz SORENSEN MD Ot E78 .5 HYPERLIPIDEMIA, UNSPECIFIED 05/01/2019 Almaz SORENSEN MD Ot I10 ESSENTIAL (PRIMARY) HYPERTENSION 05/01/2019 Almaz SORENSEN MD Ot I20 .0 UNSTABLE ANGINA 05/01/2019 Almaz SORENSEN MD Ot I47 .1 SUPRAVENTRICULAR TACHYCARDIA 05/01/2019 Almaz SORENSEN MD Ot M79.605 PAIN IN LEFT LEG 05/01/2019 EDU PEDRAZA M DAVE Ot R00 .1 BRADYCARDIA, UNSPECIFIED 05/01/2019 EDU PEDRAZA M DAVE Ot Z82.49 FAMILY HX OF ISCHEM HEART DIS AND OTH DI 05/01/2019 EDU PEDRAZA M DAVE Ot Z88 .0 ALLERGY STATUS TO PENICILLIN 06/30/2019 EDU PEDRAZA, M DAVE Ot E11 .9 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 WITHOUT COMPLIC 06/30/2019 EDU PEDRAZA M DAVE Ot E78 .5 HYPERLIPIDEMIA, UNSPECIFIED 06/30/2019 EDU PEDRAZA M DAVE Ot I10 ESSENTIAL (PRIMARY) HYPERTENSION 06/30/2019 EDU PEDRAZA M DAVE Ot I20 .0 UNSTABLE ANGINA 06/30/2019 EDU PEDRAZA M DAVE Ot I47 .1 SUPRAVENTRICULAR TACHYCARDIA 06/30/2019 EDU PEDRAZA M DAVE Ot M79.605 PAIN IN LEFT LEG 06/30/2019 EDU PEDRAZA M DAVE Ot R00 .1 BRADYCARDIA, UNSPECIFIED 06/30/2019 EDU PEDRAZA M DAVE Ot Z82.49 FAMILY HX OF ISCHEM HEART DIS AND OTH DI 06/30/2019 EDU PEDRAZA M DAVE Ot Z88 .0 ALLERGY STATUS TO PENICILLIN 07/01/2019 EDU PEDRAZA M DAVE Ot E11 .9 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 WITHOUT COMPLIC 07/01/2019 EDU PEDRAZA M DAVE Ot E78 .5 HYPERLIPIDEMIA, UNSPECIFIED 07/01/2019 EDU PEDRAZA M DAVE Ot I10 ESSENTIAL (PRIMARY) HYPERTENSION 07/01/2019 EDU PEDRAZA M DAVE Ot I20 .0 UNSTABLE ANGINA 07/01/2019 EDU PEDRAZA M DAVE Ot I47 .1 SUPRAVENTRICULAR TACHYCARDIA 07/01/2019 EDU PEDRAZA M DAVE Ot M79.605 PAIN IN LEFT LEG 07/01/2019 EDU PEDRAZA M DAVE Ot R00 .1 BRADYCARDIA, UNSPECIFIED 07/01/2019 EDU PEDRAZA M DAVE Ot Z82.49 FAMILY HX OF ISCHEM HEART DIS AND OTH DI 07/01/2019 EDU PEDRAZA, M DAVE Ot Z88 .0 ALLERGY STATUS TO PENICILLIN 08/03/2019 CRUZNIKO ORTIZ DOI Ot E11.65 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 WITH HYPERGLYCE 08/03/2019 CRUZ DO JANEEN Ot E78.00 PURE HYPERCHOLESTEROLEMIA, UNSPECIFIED 08/03/2019 CRUZ DO, JANEEN Ot E78.1 PURE HYPERGLYCERIDEMIA 08/03/2019 CRUZNIKO ORTIZ DOI Ot Z00.00 ENCNTR FOR GENERAL ADULT MEDICAL EXAM W/ 09/21/2019 BRI DUCKWORTH MD, Ot E11.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 DRILL OPERATOR 09/21/2019 BRI DUCKWORTH MD, Ot E11.40 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 WITH DIABETIC N 09/21/2019 BRI DUCKWORTH MD Ot E78.00 PURE HYPERCHOLESTEROLEMIA, UNSPECIFIED 09/21/2019 BRI DUCKWORTH MD Ot F17.210 NICOTINE DEPENDENCE, CIGARETTES, UNCOMPL 09/21/2019 BRI DUCKWORTH MD Ot I12.9 HYPERTENSIVE CHRONIC KIDNEY DISEASE W ST 09/21/2019 BRI DUCKWORTH MD Ot I25.10 ATHSCL HEART DISEASE OF [place] CORONARY 09/21/2019 BRI DUCKWORTH MD Ot K21.9 GASTRO-ESOPHAGEAL REFLUX DISEASE WITHOUT 09/21/2019 BRI DUCKWORTH MD Ot M54.6 PAIN IN THORACIC SPINE 09/21/2019 BRI DUCKWORTH MD Ot N18.2 CHRONIC KIDNEY DISEASE, STAGE 2 (MILD) 09/21/2019 BRI DUCKWORTH MD Ot R07.89 OTHER CHEST PAIN 09/21/2019 BRI DUCKWORTH MD Ot R07.9 CHEST PAIN, UNSPECIFIED 09/21/2019 BRI DUCKWORTH MD Ot Z79.02 NURSING HOME (CURRENT) USE OF ANTITHROMBOTI 09/21/2019 BRI DUCKWORTH MD Ot Z79.4 NURSING HOME (CURRENT) USE OF INSULIN 09/21/2019 BRI DUCKWORTH MD Ot Z79.51 AWS DEVELOPER (CURRENT) USE OF INHALED STERO 09/21/2019 BRI DUCKWORTH MD Ot Z79.82 NURSING HOME (CURRENT) USE OF ASPIRIN 09/21/2019 BRI DUCKWORTH MD, Ot Z80.0 FAMILY HISTORY OF MALIGNANT NEOPLASM OF 09/21/2019 RBI DUCKWORTH MD, Ot Z82.49 FAMILY HX OF ISCHEM HEART DIS AND OTH DI 09/21/2019 BRI DUCKWORTH MD, Ot Z88.0 ALLERGY STATUS TO PENICILLIN 09/21/2019 BRI DUCKWORTH MD, Ot Z88.8 ALLERGY STATUS TO OTH DRUG/MEDS/BIOL SUB 09/21/2019 BRI DUCKWORTH MD, Ot Z95.5 PRESENCE OF CORONARY ANGIOPLASTY IMPLANT 09/23/2019 BRI DUCKWORTH MD, Ot E11.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 DRILL OPERATOR 09/23/2019 BRI DUCKWORTH MD, Ot E11.40 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 WITH DIABETIC N 09/23/2019 BRI DUCKWORTH MD, Ot E78.00 PURE HYPERCHOLESTEROLEMIA, UNSPECIFIED 09/23/2019 BRI DUCKWORTH MD Ot F17.210 NICOTINE DEPENDENCE, CIGARETTES, UNCOMPL 09/23/2019 BRI DUCKWORTH MD, Ot I12.9 HYPERTENSIVE CHRONIC KIDNEY DISEASE W ST 09/23/2019 BRI DUCKWORTH MD, Ot I25.10 ATHSCL HEART DISEASE OF [place] CORONARY 09/23/2019 BRI DUCKWORTH MD, Ot K21.9 GASTRO-ESOPHAGEAL REFLUX DISEASE WITHOUT 09/23/2019 BRI DUCKWORTH MD, Ot M54.6 PAIN IN THORACIC SPINE 09/23/2019 BRI DUCKWORTH MD Ot N18.2 CHRONIC KIDNEY DISEASE, STAGE 2 (MILD) 09/23/2019 BRI DUCKWORTH MD Ot R07.89 OTHER CHEST PAIN 09/23/2019 BRI DUCKWORTH MD, Ot R07.9 CHEST PAIN, UNSPECIFIED 09/23/2019 BRI DUCKWORTH MD Ot Z79.02 NURSING HOME (CURRENT) USE OF ANTITHROMBOTI 09/23/2019 BRI DUCKWORTH MD Ot Z79.4 NURSING HOME (CURRENT) USE OF INSULIN 09/23/2019 BRI DUCKWORTH MD, Ot Z79.51 AWS DEVELOPER (CURRENT) USE OF INHALED STERO 09/23/2019 BRI DUCKWORTH MD, Ot Z79.82 AWS DEVELOPER (CURRENT) USE OF ASPIRIN 09/23/2019 BRI DUCKWORTH MD, Ot Z80.0 FAMILY HISTORY OF MALIGNANT NEOPLASM OF 09/23/2019 BRI DUCKWORTH MD, Ot Z82.49 FAMILY HX OF ISCHEM HEART DIS AND OTH DI 09/23/2019 BRI DUCKWORTH MD, Ot Z88.0 ALLERGY STATUS TO PENICILLIN 09/23/2019 BRI DUCKWORTH MD, Ot Z88.8 ALLERGY STATUS TO OTH DRUG/MEDS/BIOL SUB 09/23/2019 BRI DUCKWORTH MD, Ot Z95.5 PRESENCE OF CORONARY ANGIOPLASTY IMPLANT 12/21/2019 Almaz SORENSEN MD, Ot Z53 .9 PROCEDURE AND TREATMENT NOT CARRIED OUT, 12/31/2019 Almaz SORENSEN MD, Ot Z53 .9 PROCEDURE AND TREATMENT NOT CARRIED OUT, 01/17/2020 P M542 Cervi calgia 01/17/2020 S Z981 Arthr odesis status 02/07/2020 Almaz SORENSEN MD, Ot R00 .1 BRADYCARDIA, UNSPECIFIED 02/07/2020 Almaz SORENSEN MD, Ot R07.89 OTHER CHEST PAIN Procedures There is no data. Results Test Result Range PTH, Intact - 02/17/17 07:10 PTH, Intact 45 pg/mL 15-65 Complete blood count (CBC) with automate d white blood cell (WBC) differential - 04/25/17 18:15 Blood leukocytes automated count (number/volume) 7.1 10*3/uL 4.3-11.0 Blood erythrocytes automated count (number/volume) 4.73 10*6/uL 4.35-5.85 Venous blood hemoglobin measurement (mass/volume) 14.1 g/dL 13.3-17.7 Blood hematocrit (volume fraction) 41 % 40-54 Automated erythrocyte mean corpuscular volume 88 [ foz_us] 80-99 Automated erythrocyte mean corpuscular h emoglobin (mass per erythrocyte) 30 pg 25-34 Automated erythrocyte mean corpuscular h emoglobin concentration measurement (mass/volume) 34 g/dL 32-36 Automated erythrocyte distribution width ratio 13. 4 % 10.0- 14.5 Automated blood platelet count (count/volume) 242 10*3/uL [...] 10*3 1.0-4.0 Blood monocytes automated count (number/volume) 0. 5 10*3 0.0-1.0 Automated eosinophil count 0.1 10*3/uL 0 .0-0.3 Automated blood basophil count (count/volume) 0.0 10*3/uL 0.0-0.1 PT panel in platelet poor plasma by coag ulation assay - 04/25/17 18:15 Prothrombin time (PT) in platelet poor plasma by coagu lation assay 13.1 s 12.2-14.7 INR in platelet poor plasma or blood by coagulation as say 1.0 0.8-1.4 Activated partial thromboplastin time (a PTT) in platelet poor plasma bycoagulation assay - 04/25/17 18:15 Activated partial thromboplastin time (a PTT) in platelet poor plasma bycoagulation assay 27 s 24-35 Comprehensive metabolic panel - 04/25/17 18:15 Serum or plasma sodium measurement (moles/volume) 141 mmol/L 135-145 Serum or plasma potassium measurement (moles/volume) 3.6 mmol/L 3.6-5.0 Serum or plasma chloride measurement (moles/volume) 106 mmol/L 98-107 Carbon dioxide 24 mmol/L 21-32 Serum or plasma anion gap determination (moles/volume) 11 mmol/L 5-14 Serum or plasma urea nitrogen measurement (mass/volume ) 13 mg/dL 7-18 Serum or plasma creatinine measurement (mass/volume) 0.90 mg/dL 0.60-1.30 Serum or plasma urea nitrogen/creatinine mass ratio 14 NRG Serum or plasma creatinine measurement w ith calculation of estimated glomerular filtration rate > NRG Serum or plasma glucose measurement (mass/volume) 113 mg/dL 70-105 Serum or plasma calcium measurement (mass/volume) 9.0 mg/dL 8.5-10.1 Serum or plasma total bilirubin measurement (mass/volu me) 0.6 mg/dL 0.1-1.0 Serum or plasma alkaline phosphatase dariela surement (enzymatic activity/volume) 56 U/L 40-136 Serum or plasma aspartate aminotransfera se measurement (enzymatic activity/volume) 17 U/L 5-34 Serum or plasma alanine aminotransferase measurement (enzymatic activity/volume) 36 U/L 0-55 Serum or plasma protein measurement (mass/volume) 6.6 g/dL 6.4-8.2 Serum or plasma albumin measurement (mass/volume) 4.3 g/dL 3.2-4.5 Magnesium - 04/25/17 18:15 Magnesium 1.9 mg/dL 1.8-2.4 Serum or plasma troponin i.cardiac measu rement (mass/volume) - 04/25/17 18:15 Serum or plasma troponin i.cardiac measurement (mass/v olume) < ng/mL <0.30 Myoglobin, serum - 04/25/17 18:15 Myoglobin, serum 67.3 ng/mL 10.0-92.0 Serum or plasma troponin i.cardiac measu rement (mass/volume) - 04/26/17 00:32 Serum or plasma troponin i.cardiac measurement (mass/v olume) < ng/mL <0.30 Lipid 1996 panel - 04/26/17 06:06 Serum or plasma triglyceride measurement (mass/volume) 116 mg/dL <150 Serum or plasma cholesterol measurement (mass/volume) 131 mg/dL < 200 Serum or plasma cholesterol in HDL measurement (mass/v olume) 39 mg/dL 40-60 Cholesterol in LDL [mass/volume] in serum or plasma by direct assay 90 mg/dL 1-129 Serum or plasma cholesterol in VLDL measurement (mass/ volume) 23 mg/dL 5-40 Automated blood complete blood count (he mogram) panel - 04/27/17 07:07 Blood leukocytes automated count (number/volume) 6.5 10*3/uL 4.3-11.0 Blood erythrocytes automated count (number/volume) 4.60 10*6/uL 4.35-5.85 Venous blood hemoglobin measurement (mass/volume) 13.7 g/dL 13.3-17.7 Blood hematocrit (volume fraction) 40 % 40-54 Automated erythrocyte mean corpuscular volume 87 [ foz_us] 80-99 Automated erythrocyte mean corpuscular h emoglobin (mass per erythrocyte) 30 pg 25-34 Automated erythrocyte mean corpuscular h emoglobin concentration measurement (mass/volume) 34 g/dL 32-36 Automated erythrocyte distribution width ratio 13. 6 % 10.0- 14.5 Automated blood platelet count (count/volume) 209 10*3/uL 130-400 Automated blood platelet mean volume measurement 9.5 [foz_us] 7.4-10.4 Whole blood basic metabolic panel - 04/18 07:07 Serum or plasma sodium measurement (moles/volume) 139 mmol/L 135-145 Serum or plasma potassium measurement (moles/volume) 3.9 mmol/L 3.6-5.0 Serum or plasma chloride measurement (moles/volume) 110 mmol/L 98-107 Carbon dioxide 19 mmol/L 21-32 Serum or plasma anion gap determination (moles/volume) 10 mmol/L 5-14 Serum or plasma urea nitrogen measurement (mass/volume ) 10 mg/dL 7-18 Serum or plasma creatinine measurement (mass/volume) 0.77 mg/dL 0.60-1.30 Serum or plasma urea nitrogen/creatinine mass ratio 13 NRG Serum or plasma creatinine measurement w ith calculation of estimated glomerular filtration rate > NRG Serum or plasma glucose measurement (mass/volume) 145 mg/dL 70-105 Serum or plasma calcium measurement (mass/volume) 8.8 mg/dL 8.5-10.1 Complete blood count (CBC) with automate d white blood cell (WBC) differential - 05/01/17 15:05 Blood leukocytes automated count (number/volume) 8.7 10*3/uL 4.3-11.0 Blood erythrocytes automated count (number/volume) 4.81 10*6/uL 4.35-5.85 Venous blood hemoglobin measurement (mass/volume) 14.4 g/dL 13.3-17.7 Blood hematocrit (volume fraction) 42 % 40-54 Automated erythrocyte mean corpuscular volume 87 [ foz_us] 80-99 Automated erythrocyte mean corpuscular h emoglobin (mass per erythrocyte) 30 pg 25-34 Automated erythrocyte mean corpuscular h emoglobin concentration measurement (mass/volume) 35 g/dL 32-36 Automated erythrocyte distribution width ratio 13. 4 % 10.0- 14.5 Automated blood platelet count (count/volume) 245 10*3/uL [...] 10*3 1.0-4.0 Blood monocytes automated count (number/volume) 0. 6 10*3 0.0-1.0 Automated eosinophil count 0.1 10*3/uL 0 .0-0.3 Automated blood basophil count (count/volume) 0.0 10*3/uL 0.0-0.1 PT panel in platelet poor plasma by coag ulation assay - 05/01/17 15:05 Prothrombin time (PT) in platelet poor plasma by coagu lation assay 12.6 s 12.2-14.7 INR in platelet poor plasma or blood by coagulation as say 0.9 0.8-1.4 Activated partial thromboplastin time (a PTT) in platelet poor plasma bycoagulation assay - 05/01/17 15:05 Activated partial thromboplastin time (a PTT) in platelet poor plasma bycoagulation assay 28 s 24-35 Comprehensive metabolic panel - 05/01/17 15:05 Serum or plasma sodium measurement (moles/volume) 140 mmol/L 135-145 Serum or plasma potassium measurement (moles/volume) 3.6 mmol/L 3.6-5.0 Serum or plasma chloride measurement (moles/volume) 105 mmol/L 98-107 Carbon dioxide 25 mmol/L 21-32 Serum or plasma anion gap determination (moles/volume) 10 mmol/L 5-14 Serum or plasma urea nitrogen measurement (mass/volume ) 16 mg/dL 7-18 Serum or plasma creatinine measurement (mass/volume) 1.01 mg/dL 0.60-1.30 Serum or plasma urea nitrogen/creatinine mass ratio 16 NRG Serum or plasma creatinine measurement w ith calculation of estimated glomerular filtration rate > NRG Serum or plasma glucose measurement (mass/volume) 244 mg/dL 70-105 Serum or plasma calcium measurement (mass/volume) 9.7 mg/dL 8.5-10.1 Serum or plasma total bilirubin measurement (mass/volu me) 0.6 mg/dL 0.1-1.0 Serum or plasma alkaline phosphatase dariela surement (enzymatic activity/volume) 59 U/L 40-136 Serum or plasma aspartate aminotransfera se measurement (enzymatic activity/volume) 16 U/L 5-34 Serum or plasma alanine aminotransferase measurement (enzymatic activity/volume) 39 U/L 0-55 Serum or plasma protein measurement (mass/volume) 7.2 g/dL 6.4-8.2 Serum or plasma albumin measurement (mass/volume) 4.6 g/dL 3.2-4.5 Magnesium - 05/01/17 15:05 Magnesium 1.9 mg/dL 1.8-2.4 Serum or plasma troponin i.cardiac measu rement (mass/volume) - 05/01/17 15:05 Serum or plasma troponin i.cardiac measurement (mass/v olume) < ng/mL <0.30 Myoglobin, serum - 05/01/17 15:05 Myoglobin, serum 34.3 ng/mL 10.0-92.0 Serum or plasma troponin i.cardiac measu rement (mass/volume) - 05/01/17 21:15 Serum or plasma troponin i.cardiac measurement (mass/v olume) < ng/mL <0.30 Whole blood basic metabolic panel - 04/18 01/01 03:26 Serum or plasma sodium measurement (moles/volume) 140 mmol/L 135-145 Serum or plasma potassium measurement (moles/volume) 4.2 mmol/L 3.6-5.0 Serum or plasma chloride measurement (moles/volume) 109 mmol/L 98-107 Carbon dioxide 20 mmol/L 21-32 Serum or plasma anion gap determination (moles/volume) 11 mmol/L 5-14 Serum or plasma urea nitrogen measurement (mass/volume ) 13 mg/dL 7-18 Serum or plasma creatinine measurement (mass/volume) 0.82 mg/dL 0.60-1.30 Serum or plasma urea nitrogen/creatinine mass ratio 16 NRG Serum or plasma creatinine measurement w ith calculation of estimated glomerular filtration rate > NRG Serum or plasma glucose measurement (mass/volume) 177 mg/dL 70-105 Serum or plasma calcium measurement (mass/volume) 8.6 mg/dL 8.5-10.1 Magnesium - 05/02/17 03:26 Magnesium 1.9 mg/dL 1.8-2.4 Complete blood count (CBC) with automate d white blood cell (WBC) differential - 05/02/17 03:26 Blood leukocytes automated count (number/volume) 6.9 10*3/uL 4.3-11.0 Blood erythrocytes automated count (number/volume) 4.31 10*6/uL 4.35-5.85 Venous blood hemoglobin measurement (mass/volume) 12.8 g/dL 13.3-17.7 Blood hematocrit (volume fraction) 38 % 40-54 Automated erythrocyte mean corpuscular volume 88 [ foz_us] 80-99 Automated erythrocyte mean corpuscular h emoglobin (mass per erythrocyte) 30 pg 25-34 Automated erythrocyte mean corpuscular h emoglobin concentration measurement (mass/volume) 34 g/dL 32-36 Automated erythrocyte distribution width ratio 13. 6 % 10.0- 14.5 Automated blood platelet count (count/volume) 225 10*3/uL [...] 10*3 1.0-4.0 Blood monocytes automated count (number/volume) 0. 6 10*3 0.0-1.0 Automated eosinophil count 0.1 10*3/uL 0 .0-0.3 Automated blood basophil count (count/volume) 0.0 10*3/uL 0.0-0.1 Lipid 1996 panel - 05/02/17 03:26 Serum or plasma triglyceride measurement (mass/volume) 68 mg/dL <150 Serum or plasma cholesterol measurement (mass/volume) 89 mg/dL < 200 Serum or plasma cholesterol in HDL measurement (mass/v olume) 41 mg/dL 40-60 Cholesterol in LDL [mass/volume] in serum or plasma by direct assay 39 mg/dL 1-129 Serum or plasma cholesterol in VLDL measurement (mass/ volume) 14 mg/dL 5-40 Serum or plasma troponin i.cardiac measu rement (mass/volume) - 05/02/17 03:26 Serum or plasma troponin i.cardiac measurement (mass/v olume) < ng/mL <0.30 Complete blood count (CBC) with automate d white blood cell (WBC) differential - 12/10/17 14:44 Blood leukocytes automated count (number/volume) 8.5 10*3/uL 4.3-11.0 Blood erythrocytes automated count (number/volume) 4.78 10*6/uL 4.35-5.85 Venous blood hemoglobin measurement (mass/volume) 14.6 g/dL 13.3-17.7 Blood hematocrit (volume fraction) 42 % 40-54 Automated erythrocyte mean corpuscular volume 87 [ foz_us] 80-99 Automated erythrocyte mean corpuscular h emoglobin (mass per erythrocyte) 31 pg 25-34 Automated erythrocyte mean corpuscular h emoglobin concentration measurement (mass/volume) 35 g/dL 32-36 Automated erythrocyte distribution width ratio 13. 3 % 10.0- 14.5 Automated blood platelet count (count/volume) 259 10*3/uL [...] 10*3 1.0-4.0 Blood monocytes automated count (number/volume) 0. 7 10*3 0.0-1.0 Automated eosinophil count 0.1 10*3/uL 0 .0-0.3 Automated blood basophil count (count/volume) 0.0 10*3/uL 0.0-0.1 PT panel in platelet poor plasma by coag ulation assay - 12/10/17 14:44 Prothrombin time (PT) in platelet poor plasma by coagu lation assay 13.0 s 12.2-14.7 INR in platelet poor plasma or blood by coagulation as say 1.0 0.8-1.4 Activated partial thromboplastin time (a PTT) in platelet poor plasma bycoagulation assay - 12/10/17 14:44 Activated partial thromboplastin time (a PTT) in platelet poor plasma bycoagulation assay 29 s 24-35 Comprehensive metabolic panel - 12/10/17 14:44 Serum or plasma sodium measurement (moles/volume) 137 mmol/L 135-145 Serum or plasma potassium measurement (moles/volume) 4.1 mmol/L 3.6-5.0 Serum or plasma chloride measurement (moles/volume) 102 mmol/L 98-107 Carbon dioxide 23 mmol/L 21-32 Serum or plasma anion gap determination (moles/volume) 12 mmol/L 5-14 Serum or plasma urea nitrogen measurement (mass/volume ) 17 mg/dL 7-18 Serum or plasma creatinine measurement (mass/volume) 1.00 mg/dL 0.60-1.30 Serum or plasma urea nitrogen/creatinine mass ratio 17 NRG Serum or plasma creatinine measurement w ith calculation of estimated glomerular filtration rate > NRG Serum or plasma glucose measurement (mass/volume) 296 mg/dL 70-105 Serum or plasma calcium measurement (mass/volume) 9.9 mg/dL 8.5-10.1 Serum or plasma total bilirubin measurement (mass/volu me) 0.6 mg/dL 0.1-1.0 Serum or plasma alkaline phosphatase dariela surement (enzymatic activity/volume) 70 U/L 40-136 Serum or plasma aspartate aminotransfera se measurement (enzymatic activity/volume) 14 U/L 5-34 Serum or plasma alanine aminotransferase measurement (enzymatic activity/volume) 28 U/L 0-55 Serum or plasma protein measurement (mass/volume) 7.7 g/dL 6.4-8.2 Serum or plasma albumin measurement (mass/volume) 4.9 g/dL 3.2-4.5 Magnesium - 12/10/17 14:44 Magnesium 2.0 mg/dL 1.8-2.4 Serum or plasma troponin i.cardiac measu rement (mass/volume) - 12/10/17 14:44 Serum or plasma troponin i.cardiac measurement (mass/v olume) < ng/mL <0.30 Fibrin D-dimer FEU measurement in platel et poor plasma (mass/volume) - 12/10/17 14:44 Fibrin D-dimer FEU measurement in platelet poor plasma (mass/volume) 0.39 ug/mL 0.00-0.49 Myoglobin, serum - 12/10/17 14:44 Myoglobin, serum 52.6 ng/mL 10.0-92.0 Capillary blood glucose measurement by g lucometer (mass/volume) - 12/10/17 21:32 Capillary blood glucose measurement by glucometer (mas s/volume) 160 mg/dL 70-110 Serum or plasma troponin i.cardiac measu rement (mass/volume) - 12/10/17 22:50 Serum or plasma troponin i.cardiac measurement (mass/v olume) < ng/mL <0.30 Serum or plasma troponin i.cardiac measu rement (mass/volume) - 12/11/17 05:10 Serum or plasma troponin i.cardiac measurement (mass/v olume) < ng/mL <0.30 Lipid 1996 panel - 12/11/17 05:10 Serum or plasma triglyceride measurement (mass/volume) 70 mg/dL <150 Serum or plasma cholesterol measurement (mass/volume) 94 mg/dL < 200 Serum or plasma cholesterol in HDL measurement (mass/v olume) 40 mg/dL 40-60 Cholesterol in LDL [mass/volume] in serum or plasma by direct assay 41 mg/dL 1-129 Serum or plasma cholesterol in VLDL measurement (mass/ volume) 14 mg/dL 5-40 Capillary blood glucose measurement by g lucometer (mass/volume) - 12/11/17 05:25 Capillary blood glucose measurement by glucometer (mas s/volume) 230 mg/dL 70-110 Capillary blood glucose measurement by g lucometer (mass/volume) - 12/11/17 11:20 Capillary blood glucose measurement by glucometer (mas s/volume) 258 mg/dL 70-110 Capillary blood glucose measurement by g lucometer (mass/volume) - 12/11/17 16:43 Capillary blood glucose measurement by glucometer (mas s/volume) 170 mg/dL 70-110 Urinalysis - 02/10/18 16:13 Icotest N/A Negative Urine Volume Urine Volume Sufficient (10mL) Urine Yeast No Yeast present Urine-Appearance Clear Clear Urine-Bacteria Negative Urine-Bilirubin Negative Negative Urine-Blood Trace-intact Negative Urine-Color Yellow Colorless-[place] Urine-Epithelial Cells 0-5/HPF Urine-Glucose 3+ Negative Urine-Ketones Negative Negative Urine-Leukocytes Negative Negative Urine-Mucus 1+ Urine-Nitrite Negative Negative Urine-Other Culture to follow Urine-pH 5.0 5-8.5 Urine-Protein Negative Negative Urine-RBC Rare/HPF Urine-Specific [place] >=1.030 1.000-1 .030 Urine-WBC Nothing Seen on Microscopic Urobilinogen 0.2 [...] 5-14 Serum or plasma urea nitrogen measurement (mass/volume ) 17 mg/dL 7-18 Serum or plasma creatinine measurement (mass/volume) 0.92 mg/dL 0.60-1.30 Serum or plasma urea nitrogen/creatinine mass ratio 18 NRG Serum or plasma creatinine measurement w ith calculation of estimated glomerular filtration rate > NRG Serum or plasma glucose measurement (mass/volume) 202 mg/dL 70-105 Serum or plasma calcium measurement (mass/volume) 9.0 mg/dL 8.5-10.1 Serum or plasma total bilirubin measurement (mass/volu me) 0.6 mg/dL 0.1-1.0 Serum or plasma alkaline phosphatase dariela surement (enzymatic activity/volume) 80 U/L 40-136 Serum or plasma aspartate aminotransfera se measurement (enzymatic activity/volume) 14 U/L 5-34 Serum or plasma alanine aminotransferase measurement (enzymatic activity/volume) 38 U/L 0-55 Serum or plasma protein measurement (mass/volume) 7.0 g/dL 6.4-8.2 Serum or plasma albumin measurement (mass/volume) 4.6 g/dL 3.2-4.5 Lipid 1996 panel - 08/06/18 08:45 Serum or plasma triglyceride measurement (mass/volume) 39 mg/dL <150 Serum or plasma cholesterol measurement (mass/volume) 97 mg/dL < 200 Serum or plasma cholesterol in HDL measurement (mass/v olume) 42 mg/dL 40-60 Cholesterol in LDL [mass/volume] in serum or plasma by direct assay 44 mg/dL 1-129 Serum or plasma cholesterol in VLDL measurement (mass/ volume) 8 mg/dL 5-40 Hemoglobin A1c - 08/06/18 08:45 Blood hemoglobin A1C measurement (mass/volume) 7.7 % 4.0-5.6 MEAN BLOOD GLUCOSE 174 % <=126 Complete blood count (CBC) with automate d white blood cell (WBC) differential - 09/03/18 14:50 Blood leukocytes automated count (number/volume) 9.0 10*3/uL 4.3-11.0 Blood erythrocytes automated count (number/volume) 4.72 10*6/uL 4.35-5.85 Venous blood hemoglobin measurement (mass/volume) 14.0 g/dL 13.3-17.7 Blood hematocrit (volume fraction) 42 % 40-54 Automated erythrocyte mean corpuscular volume 88 [ foz_us] 80-99 Automated erythrocyte mean corpuscular h emoglobin (mass per erythrocyte) 30 pg 25-34 Automated erythrocyte mean corpuscular h emoglobin concentration measurement (mass/volume) 34 g/dL 32-36 Automated erythrocyte distribution width ratio 14. 3 % 10.0- 14.5 Automated blood platelet count (count/volume) 237 10*3/uL [...] 10*3 1.0-4.0 Blood monocytes automated count (number/volume) 0. 6 10*3 0.0-1.0 Automated eosinophil count 0.1 10*3/uL 0 .0-0.3 Automated blood basophil count (count/volume) 0.0 10*3/uL 0.0-0.1 Comprehensive metabolic panel - 09/03/18 14:50 Serum or plasma sodium measurement (moles/volume) 137 mmol/L 135-145 Serum or plasma potassium measurement (moles/volume) 5.8 mmol/L 3.6-5.0 Serum or plasma chloride measurement (moles/volume) 104 mmol/L 98-107 Carbon dioxide 20 mmol/L 21-32 Serum or plasma anion gap determination (moles/volume) 13 mmol/L 5-14 Serum or plasma urea nitrogen measurement (mass/volume ) 14 mg/dL 7-18 Serum or plasma creatinine measurement (mass/volume) 0.98 mg/dL 0.60-1.30 Serum or plasma urea nitrogen/creatinine mass ratio 14 NRG Serum or plasma creatinine measurement w ith calculation of estimated glomerular filtration rate > NRG Serum or plasma glucose measurement (mass/volume) 144 mg/dL 70-105 Serum or plasma calcium measurement (mass/volume) 9.2 mg/dL 8.5-10.1 Serum or plasma total bilirubin measurement (mass/volu me) 0.7 mg/dL 0.1-1.0 Serum or plasma alkaline phosphatase dariela surement (enzymatic activity/volume) 62 U/L 40-136 Serum or plasma aspartate aminotransfera se measurement (enzymatic activity/volume) 38 U/L 5-34 Serum or plasma alanine aminotransferase measurement (enzymatic activity/volume) 32 U/L 0-55 Serum or plasma protein measurement (mass/volume) 7.8 g/dL 6.4-8.2 Serum or plasma albumin measurement (mass/volume) 4.6 g/dL 3.2-4.5 Magnesium - 09/03/18 14:50 Magnesium 2.7 mg/dL 1.8-2.4 Serum or plasma troponin i.cardiac measu rement (mass/volume) - 09/03/18 14:50 Serum or plasma troponin i.cardiac measurement (mass/v olume) < ng/mL <0.028 Myoglobin, serum - 09/03/18 14:50 Myoglobin, serum 140.8 ng/mL 10.0-92.0 PT panel in platelet poor plasma by coag ulation assay - 09/03/18 14:50 Prothrombin time (PT) in platelet poor plasma by coagu lation assay 13.4 s 12.2-14.7 INR in platelet poor plasma or blood by coagulation as say 1.0 0.8-1.4 Activated partial thromboplastin time (a PTT) in platelet poor plasma bycoagulation assay - 09/03/18 14:50 Activated partial thromboplastin time (a PTT) in platelet poor plasma bycoagulation assay 29 s 24-35 Capillary blood glucose measurement by g lucometer (mass/volume) - 09/03/18 20:31 Capillary blood glucose measurement by glucometer (mas s/volume) 184 mg/dL 70-110 Serum or plasma troponin i.cardiac measu rement (mass/volume) - 09/03/18 20:50 Serum or plasma troponin i.cardiac measurement (mass/v olume) < ng/mL <0.028 Myoglobin, serum - 09/03/18 20:50 Myoglobin, serum 91.8 ng/mL 10.0-92.0 Capillary blood glucose measurement by g lucometer (mass/volume) - 09/04/18 05:09 Capillary blood glucose measurement by glucometer (mas s/volume) 204 mg/dL 70-110 Complete blood count (CBC) with automate d white blood cell (WBC) differential - 09/04/18 05:45 Blood leukocytes automated count (number/volume) 6.8 10*3/uL 4.3-11.0 Blood erythrocytes automated count (number/volume) 4.39 10*6/uL 4.35-5.85 Venous blood hemoglobin measurement (mass/volume) 13.1 g/dL 13.3-17.7 Blood hematocrit (volume fraction) 39 % 40-54 Automated erythrocyte mean corpuscular volume 88 [ foz_us] 80-99 Automated erythrocyte mean corpuscular h emoglobin (mass per erythrocyte) 30 pg 25-34 Automated erythrocyte mean corpuscular h emoglobin concentration measurement (mass/volume) 34 g/dL 32-36 Automated erythrocyte distribution width ratio 14. 4 % 10.0- 14.5 Automated blood platelet count (count/volume) 222 10*3/uL [...] 10*3 1.0-4.0 Blood monocytes automated count (number/volume) 0. 6 10*3 0.0-1.0 Automated eosinophil count 0.1 10*3/uL 0 .0-0.3 Automated blood basophil count (count/volume) 0.0 10*3/uL 0.0-0.1 Comprehensive metabolic panel - 09/04/18 05:45 Serum or plasma sodium measurement (moles/volume) 139 mmol/L 135-145 Serum or plasma potassium measurement (moles/volume) 4.0 mmol/L 3.6-5.0 Serum or plasma chloride measurement (moles/volume) 107 mmol/L 98-107 Carbon dioxide 21 mmol/L 21-32 Serum or plasma anion gap determination (moles/volume) 11 mmol/L 5-14 Serum or plasma urea nitrogen measurement (mass/volume ) 15 mg/dL 7-18 Serum or plasma creatinine measurement (mass/volume) 0.83 mg/dL 0.60-1.30 Serum or plasma urea nitrogen/creatinine mass ratio 18 NRG Serum or plasma creatinine measurement w ith calculation of estimated glomerular filtration rate > NRG Serum or plasma glucose measurement (mass/volume) 187 mg/dL 70-105 Serum or plasma calcium measurement (mass/volume) 8.7 mg/dL 8.5-10.1 Serum or plasma total bilirubin measurement (mass/volu me) 1.1 mg/dL 0.1-1.0 Serum or plasma alkaline phosphatase dariela surement (enzymatic activity/volume) 58 U/L 40-136 Serum or plasma aspartate aminotransfera se measurement (enzymatic activity/volume) 17 U/L 5-34 Serum or plasma alanine aminotransferase measurement (enzymatic activity/volume) 26 U/L 0-55 Serum or plasma protein measurement (mass/volume) 6.1 g/dL 6.4-8.2 Serum or plasma albumin measurement (mass/volume) 4.0 g/dL 3.2-4.5 CALCIUM CORRECTED 8.7 mg/dL 8.5-10.1 Lipid 1996 panel - 09/04/18 05:45 Serum or plasma triglyceride measurement (mass/volume) 68 mg/dL <150 Serum or plasma cholesterol measurement (mass/volume) 90 mg/dL < 200 Serum or plasma cholesterol in HDL measurement (mass/v olume) 37 mg/dL 40-60 Cholesterol in LDL [mass/volume] in serum or plasma by direct assay 42 mg/dL 1-129 Serum or plasma cholesterol in VLDL measurement (mass/ volume) 14 mg/dL 5-40 Capillary blood glucose measurement by g lucometer (mass/volume) - 09/04/18 10:40 Capillary blood glucose measurement by glucometer (mas s/volume) 195 mg/dL 70-110 Capillary blood glucose measurement by g lucometer (mass/volume) - 10/19/18 06:20 Capillary blood glucose measurement by glucometer (mas s/volume) 173 mg/dL 70-110 Methicillin resistant Staphylococcus aur eus (MRSA) screening culture - 10/19/18 06:30 Methicillin resistant Staphylococcus aureus (MRSA) scr eening culture NEG NRG Capillary blood glucose measurement by g lucometer (mass/volume) - 10/19/18 11:28 Capillary blood glucose measurement by glucometer (mas s/volume) 228 mg/dL 70-110 Capillary blood glucose measurement by g lucometer (mass/volume) - 10/19/18 16:16 Capillary blood glucose measurement by glucometer (mas s/volume) 215 mg/dL 70-110 Capillary blood glucose measurement by g lucometer (mass/volume) - 10/19/18 20:22 Capillary blood glucose measurement by glucometer (mas s/volume) 192 mg/dL 70-110 Capillary blood glucose measurement by g lucometer (mass/volume) - 10/20/18 05:42 Capillary blood glucose measurement by glucometer (mas s/volume) 182 mg/dL 70-110 Complete blood count (CBC) with automate d white blood cell (WBC) differential - 11/30/18 08:35 Blood leukocytes automated count (number/volume) 6.5 10*3/uL 4.3-11.0 Blood erythrocytes automated count (number/volume) 4.56 10*6/uL 4.35-5.85 Venous blood hemoglobin measurement (mass/volume) 13.7 g/dL 13.3-17.7 Blood hematocrit (volume fraction) 40 % 40-54 Automated erythrocyte mean corpuscular volume 88 [ foz_us] 80-99 Automated erythrocyte mean corpuscular h emoglobin (mass per erythrocyte) 30 pg 25-34 Automated erythrocyte mean corpuscular h emoglobin concentration measurement (mass/volume) 34 g/dL 32-36 Automated erythrocyte distribution width ratio 14. 0 % 10.0- 14.5 Automated blood platelet count (count/volume) 237 10*3/uL [...] 10*3 1.0-4.0 Blood monocytes automated count (number/volume) 0. 6 10*3 0.0-1.0 Automated eosinophil count 0.1 10*3/uL 0 .0-0.3 Automated blood basophil count (count/volume) 0.0 10*3/uL 0.0-0.1 Comprehensive metabolic panel - 11/30/18 08:35 Serum or plasma sodium measurement (moles/volume) 141 mmol/L 135-145 Serum or plasma potassium measurement (moles/volume) 4.0 mmol/L 3.6-5.0 Serum or plasma chloride measurement (moles/volume) 110 mmol/L 98-107 Carbon dioxide 22 mmol/L 21-32 Serum or plasma anion gap determination (moles/volume) 9 mmol/L 5-14 Serum or plasma urea nitrogen measurement (mass/volume ) 14 mg/dL 7-18 Serum or plasma creatinine measurement (mass/volume) 0.82 mg/dL 0.60-1.30 Serum or plasma urea nitrogen/creatinine mass ratio 17 NRG Serum or plasma creatinine measurement w ith calculation of estimated glomerular filtration rate > NRG Serum or plasma glucose measurement (mass/volume) 210 mg/dL 70-105 Serum or plasma calcium measurement (mass/volume) 8.9 mg/dL 8.5-10.1 Serum or plasma total bilirubin measurement (mass/volu me) 0.5 mg/dL 0.1-1.0 Serum or plasma alkaline phosphatase dariela surement (enzymatic activity/volume) 69 U/L 40-136 Serum or plasma aspartate aminotransfera se measurement (enzymatic activity/volume) 12 U/L 5-34 Serum or plasma alanine aminotransferase measurement (enzymatic activity/volume) 27 U/L 0-55 Serum or plasma protein measurement (mass/volume) 6.5 g/dL 6.4-8.2 Serum or plasma albumin measurement (mass/volume) 4.3 g/dL 3.2-4.5 CALCIUM CORRECTED 8.7 mg/dL 8.5-10.1 Lipid 1996 panel - 11/30/18 08:35 Serum or plasma triglyceride measurement (mass/volume) 50 mg/dL <150 Serum or plasma cholesterol measurement (mass/volume) 97 mg/dL < 200 Serum or plasma cholesterol in HDL measurement (mass/v olume) 41 mg/dL 40-60 Cholesterol in LDL [mass/volume] in serum or plasma by direct assay 44 mg/dL 1-129 Serum or plasma cholesterol in VLDL measurement (mass/ volume) 10 mg/dL 5-40 THYROID STIMULATING HORMONE - 11/30/18 0 8:35 THYROID STIMULATING HORMONE 0.62 u[iU]/mL 0.35-4.94 Hemoglobin A1c - 11/30/18 08:35 Blood hemoglobin A1C measurement (mass/volume) 8.6 % 4.0-5.6 MEAN BLOOD GLUCOSE 200 % <=126 Serum or plasma troponin i.cardiac measu rement (mass/volume) - 12/09/18 15:00 Serum or plasma troponin i.cardiac measurement (mass/v olume) < ng/mL <0.028 Capillary blood glucose measurement by g lucometer (mass/volume) - 12/09/18 16:00 Capillary blood glucose measurement by glucometer (mas s/volume) 167 mg/dL 70-110 Capillary blood glucose measurement by g lucometer (mass/volume) - 12/09/18 20:07 Capillary blood glucose measurement by glucometer (mas s/volume) 209 mg/dL 70-110 Serum or plasma troponin i.cardiac measu rement (mass/volume) - 12/09/18 20:55 Serum or plasma troponin i.cardiac measurement (mass/v olume) < ng/mL <0.028 Complete blood count (CBC) with automate d white blood cell (WBC) differential - 12/10/18 05:45 Blood leukocytes automated count (number/volume) 7.5 10*3/uL 4.3-11.0 Blood erythrocytes automated count (number/volume) 4.54 10*6/uL 4.35-5.85 Venous blood hemoglobin measurement (mass/volume) 13.3 g/dL 13.3-17.7 Blood hematocrit (volume fraction) 40 % 40-54 Automated erythrocyte mean corpuscular volume 87 [ foz_us] 80-99 Automated erythrocyte mean corpuscular h emoglobin (mass per erythrocyte) 29 pg 25-34 Automated erythrocyte mean corpuscular h emoglobin concentration measurement (mass/volume) 34 g/dL 32-36 Automated erythrocyte distribution width ratio 13. 9 % 10.0- 14.5 Automated blood platelet count (count/volume) 254 10*3/uL 130-400 Automated blood platelet mean volume measurement 9.3 [foz_us] 7.4-10.4 Automated blood neutrophils/100 leukocytes 72 % 42-75 Automated blood lymphocytes/100 leukocytes 19 % 12-44 Blood monocytes/100 leukocytes 8 % 0-12 Automated blood eosinophils/100 leukocytes 2 % 0-10 Automated blood basophils/100 leukocytes 0 % 0-10 Blood neutrophils automated count (number/volume) 5.4 10*3 1.8-7.8 Blood lymphocytes automated count (number/volume) 1.4 10*3 1.0-4.0 Blood monocytes automated count (number/volume) 0. 6 10*3 0.0-1.0 Automated eosinophil count 0.1 10*3/uL 0 .0-0.3 Automated blood basophil count (count/volume) 0.0 10*3/uL 0.0-0.1 PT panel in platelet poor plasma by coag ulation assay - 12/10/18 05:45 Prothrombin time (PT) in platelet poor plasma by coagu lation assay 13.9 s 12.2-14.7 INR in platelet poor plasma or blood by coagulation as say 1.0 0.8-1.4 Comprehensive metabolic panel - 12/10/18 05:45 Serum or plasma sodium measurement (moles/volume) 138 mmol/L 135-145 Serum or plasma potassium measurement (moles/volume) 4.2 mmol/L 3.6-5.0 Serum or plasma chloride measurement (moles/volume) 107 mmol/L 98-107 Carbon dioxide 20 mmol/L 21-32 Serum or plasma anion gap determination (moles/volume) 11 mmol/L 5-14 Serum or plasma urea nitrogen measurement (mass/volume ) 17 mg/dL 7-18 Serum or plasma creatinine measurement (mass/volume) 0.84 mg/dL 0.60-1.30 Serum or plasma urea nitrogen/creatinine mass ratio 20 NRG Serum or plasma creatinine measurement w ith calculation of estimated glomerular filtration rate > NRG Serum or plasma glucose measurement (mass/volume) 227 mg/dL 70-105 Serum or plasma calcium measurement (mass/volume) 9.2 mg/dL 8.5-10.1 Serum or plasma total bilirubin measurement (mass/volu me) 0.8 mg/dL 0.1-1.0 Serum or plasma alkaline phosphatase dariela surement (enzymatic activity/volume) 63 U/L 40-136 Serum or plasma aspartate aminotransfera se measurement (enzymatic activity/volume) 14 U/L 5-34 Serum or plasma alanine aminotransferase measurement (enzymatic activity/volume) 30 U/L 0-55 Serum or plasma protein measurement (mass/volume) 6.4 g/dL 6.4-8.2 Serum or plasma albumin measurement (mass/volume) 4.2 g/dL 3.2-4.5 CALCIUM CORRECTED 9.0 mg/dL 8.5-10.1 Capillary blood glucose measurement by g lucometer (mass/volume) - 12/10/18 06:03 Capillary blood glucose measurement by glucometer (mas s/volume) 219 mg/dL 70-110 Capillary blood glucose measurement by g lucometer (mass/volume) - 12/10/18 13:24 Capillary blood glucose measurement by glucometer (mas s/volume) 284 mg/dL 70-110 Complete blood count (CBC) with automate d white blood cell (WBC) differential - 02/03/19 09:10 Blood leukocytes automated count (number/volume) 7.6 10*3/uL 4.3-11.0 Blood erythrocytes automated count (number/volume) 4.96 10*6/uL 4.35-5.85 Venous blood hemoglobin measurement (mass/volume) 14.8 g/dL 13.3-17.7 Blood hematocrit (volume fraction) 44 % 40-54 Automated erythrocyte mean corpuscular volume 88 [ foz_us] 80-99 Automated erythrocyte mean corpuscular h emoglobin (mass per erythrocyte) 30 pg 25-34 Automated erythrocyte mean corpuscular h emoglobin concentration measurement (mass/volume) 34 g/dL 32-36 Automated erythrocyte distribution width ratio 14. 1 % 10.0- 14.5 Automated blood platelet count (count/volume) 249 10*3/uL 130-400 Automated blood platelet mean volume measurement 9.5 [foz_us] 7.4-10.4 Automated blood neutrophils/100 leukocytes 73 % 42-75 Automated blood lymphocytes/100 leukocytes 18 % 12-44 Blood monocytes/100 leukocytes 7 % 0-12 Automated blood eosinophils/100 leukocytes 1 % 0-10 Automated blood basophils/100 leukocytes 0 % 0-10 Blood neutrophils automated count (number/volume) 5.6 10*3 1.8-7.8 Blood lymphocytes automated count (number/volume) 1.4 10*3 1.0-4.0 Blood monocytes automated count (number/volume) 0. 6 10*3 0.0-1.0 Automated eosinophil count 0.1 10*3/uL 0 .0-0.3 Automated blood basophil count (count/volume) 0.0 10*3/uL 0.0-0.1 Urine protein/creatinine mass ratio - 09:10 Urine protein measurement (mass/volume) < mg/dL 6-12 Urine creatinine measurement (mass/volume) 34 mg/d L 30-125 Urine protein/creatinine mass ratio TNP NRG Serum or plasma renal function panel (Na , K, Cl, CO2, BUN, Cr, glucose,Ca, phos, alb) - 02/03/19 09:10 Serum or plasma sodium measurement (moles/volume) 139 mmol/L 135-145 Serum or plasma potassium measurement (moles/volume) 3.8 mmol/L 3.6-5.0 Serum or plasma chloride measurement (moles/volume) 105 mmol/L 98-107 Carbon dioxide 22 mmol/L 21-32 Serum or plasma anion gap determination (moles/volume) 12 mmol/L 5-14 Serum or plasma urea nitrogen measurement (mass/volume ) 12 mg/dL 7-18 Serum or plasma creatinine measurement (mass/volume) 0.94 mg/dL 0.60-1.30 Serum or plasma urea nitrogen/creatinine mass ratio 13 NRG Serum or plasma creatinine measurement w ith calculation of estimated glomerular filtration rate > NRG Serum or plasma glucose measurement (mass/volume) 194 mg/dL 70-105 Serum or plasma calcium measurement (mass/volume) 9.3 mg/dL 8.5-10.1 Serum or plasma albumin measurement (mass/volume) 4.6 g/dL 3.2-4.5 Serum or plasma phosphate measurement (mass/volume) 3.5 mg/dL 2.3-4.7 Serum or plasma uric acid measurement (m ass/volume) - 02/03/19 09:10 Serum or plasma uric acid measurement (mass/volume) 5.4 mg/dL 2.6-7.2 Magnesium - 02/03/19 09:10 Magnesium 2.1 mg/dL 1.8-2.4 Serum or plasma intact pararthyroid horm one measurement (mass/volume) - 02/03/19 09:10 Serum or plasma intact parathyroid hormone measurement (mass/volume) 85.8 pg/mL 9.0-77.0 Bio-intact parathyroid hormone (PTH) measurement with calcium 9.3 % 8.5-10.5 VITAMIN D 25-HYDROXY - 02/03/19 09:10 VITAMIN D 25-HYDROXY (TOTAL) 43.0 % 3 0.0-100.0 Whole blood basic metabolic panel - 02/15 03/05 09:03 Serum or plasma sodium measurement (moles/volume) 140 mmol/L 135-145 Serum or plasma potassium measurement (moles/volume) 4.0 mmol/L 3.6-5.0 Serum or plasma chloride measurement (moles/volume) 108 mmol/L 98-107 Carbon dioxide 21 mmol/L 21-32 Serum or plasma anion gap determination (moles/volume) 11 mmol/L 5-14 Serum or plasma urea nitrogen measurement (mass/volume ) 17 mg/dL 7-18 Serum or plasma creatinine measurement (mass/volume) 0.95 mg/dL 0.60-1.30 Serum or plasma urea nitrogen/creatinine mass ratio 18 NRG Serum or plasma creatinine measurement w ith calculation of estimated glomerular filtration rate > NRG Serum or plasma glucose measurement (mass/volume) 114 mg/dL 70-105 Serum or plasma calcium measurement (mass/volume) 9.5 mg/dL 8.5-10.1 Comprehensive metabolic panel - 04/07/19 08:15 Serum or plasma sodium measurement (moles/volume) 142 mmol/L 135-145 Serum or plasma potassium measurement (moles/volume) 4.0 mmol/L 3.6-5.0 Serum or plasma chloride measurement (moles/volume) 107 mmol/L 98-107 Carbon dioxide 24 mmol/L 21-32 Serum or plasma anion gap determination (moles/volume) 11 mmol/L 5-14 Serum or plasma urea nitrogen measurement (mass/volume ) 13 mg/dL 7-18 Serum or plasma creatinine measurement (mass/volume) 0.91 mg/dL 0.60-1.30 Serum or plasma urea nitrogen/creatinine mass ratio 14 NRG Serum or plasma creatinine measurement w ith calculation of estimated glomerular filtration rate > NRG Serum or plasma glucose measurement (mass/volume) 117 mg/dL 70-105 Serum or plasma calcium measurement (mass/volume) 9.2 mg/dL 8.5-10.1 Serum or plasma total bilirubin measurement (mass/volu me) 0.6 mg/dL 0.1-1.0 Serum or plasma alkaline phosphatase dariela surement (enzymatic activity/volume) 75 U/L 40-136 Serum or plasma aspartate aminotransfera se measurement (enzymatic activity/volume) 17 U/L 5-34 Serum or plasma alanine aminotransferase measurement (enzymatic activity/volume) 27 U/L 0-55 Serum or plasma protein measurement (mass/volume) 7.5 g/dL 6.4-8.2 Serum or plasma albumin measurement (mass/volume) 4.6 g/dL 3.2-4.5 Serum or plasma triglyceride measurement (mass/volume) - 04/07/19 08:15 Serum or plasma triglyceride measurement (mass/volume) 54 mg/dL <150 Serum or plasma cholesterol measurement (mass/volume) - 04/07/19 08:15 Serum or plasma cholesterol measurement (mass/volume) 113 mg/dL < 200 Hemoglobin A1c measurement - 04/07/19 08 :15 Blood hemoglobin A1C measurement (mass/volume) 6.2 % 4.0-5.6 MEAN BLOOD GLUCOSE 131 % <=126 Urine microalbumin measurement by test s trip (mass/volume) - 04/07/19 08:18 MICROALBUMIN/CREATININE RATIO <11.8 0.0-30.0 Urine creatinine measurement (mass/volume) 17 % NRG Albumin/creatinine ratio panel in random urine for detection of microalbuminuria < % 0.0-20.0 Comprehensive metabolic panel - 07/29/19 09:25 Serum or plasma sodium measurement (moles/volume) 144 mmol/L 135-145 Serum or plasma potassium measurement (moles/volume) 3.7 mmol/L 3.6-5.0 Serum or plasma chloride measurement (moles/volume) 109 mmol/L 98-107 Carbon dioxide 21 mmol/L 21-32 Serum or plasma anion gap determination (moles/volume) 14 mmol/L 5-14 Serum or plasma urea nitrogen measurement (mass/volume ) 14 mg/dL 7-18 Serum or plasma creatinine measurement (mass/volume) 0.92 mg/dL 0.60-1.30 Serum or plasma urea nitrogen/creatinine mass ratio 15 NRG Serum or plasma creatinine measurement w ith calculation of estimated glomerular filtration rate > NRG Serum or plasma glucose measurement (mass/volume) 121 mg/dL 70-105 Serum or plasma calcium measurement (mass/volume) 9.2 mg/dL 8.5-10.1 Serum or plasma total bilirubin measurement (mass/volu me) 0.8 mg/dL 0.1-1.0 Serum or plasma alkaline phosphatase dariela surement (enzymatic activity/volume) 61 U/L 40-136 Serum or plasma aspartate aminotransfera se measurement (enzymatic activity/volume) 16 U/L 5-34 Serum or plasma alanine aminotransferase measurement (enzymatic activity/volume) 26 U/L 0-55 Serum or plasma protein measurement (mass/volume) 6.9 g/dL 6.4-8.2 Serum or plasma albumin measurement (mass/volume) 4.6 g/dL 3.2-4.5 Serum or plasma triglyceride measurement (mass/volume) - 07/29/19 09:25 Serum or plasma triglyceride measurement (mass/volume) 63 mg/dL <150 Serum or plasma cholesterol measurement (mass/volume) - 07/29/19 09:25 Serum or plasma cholesterol measurement (mass/volume) 110 mg/dL < 200 Hemoglobin A1c measurement - 07/29/19 09 :25 Blood hemoglobin A1C measurement (mass/volume) 6.6 % 4.0-5.6 MEAN BLOOD GLUCOSE 143 % <=126 Complete blood count (CBC) with automate d white blood cell (WBC) differential - 09/21/19 12:49 Blood leukocytes automated count (number/volume) 8.2 10*3/uL 4.3-11.0 Blood erythrocytes automated count (number/volume) 5.21 10*6/uL 4.35-5.85 Venous blood hemoglobin measurement (mass/volume) 15.4 g/dL 13.3-17.7 Blood hematocrit (volume fraction) 46 % 40-54 Automated erythrocyte mean corpuscular volume 88 [ foz_us] 80-99 Automated erythrocyte mean corpuscular h emoglobin (mass per erythrocyte) 30 pg 25-34 Automated erythrocyte mean corpuscular h emoglobin concentration measurement (mass/volume) 34 g/dL 32-36 Automated erythrocyte distribution width ratio 14. 6 % 10.0- 14.5 Automated blood platelet count (count/volume) 254 10*3/uL 130-400 Automated blood platelet mean volume measurement 8.8 [foz_us] 7.4-10.4 Automated blood neutrophils/100 leukocytes 75 % 42-75 Automated blood lymphocytes/100 leukocytes 17 % 12-44 Blood monocytes/100 leukocytes 7 % 0-12 Automated blood eosinophils/100 leukocytes 1 % 0-10 Automated blood basophils/100 leukocytes 0 % 0-10 Blood neutrophils automated count (number/volume) 6.2 10*3 1.8-7.8 Blood lymphocytes automated count (number/volume) 1.4 10*3 1.0-4.0 Blood monocytes automated count (number/volume) 0. 6 10*3 0.0-1.0 Automated eosinophil count 0.1 10*3/uL 0 .0-0.3 Automated blood basophil count (count/volume) 0.0 10*3/uL 0.0-0.1 PT panel in platelet poor plasma by coag ulation assay - 09/21/19 12:49 Prothrombin time (PT) in platelet poor plasma by coagu lation assay 13.2 s 12.2-14.7 INR in platelet poor plasma or blood by coagulation as say 1.0 0.8-1.4 Activated partial thromboplastin time (a PTT) in platelet poor plasma bycoagulation assay - 09/21/19 12:49 Activated partial thromboplastin time (a PTT) in platelet poor plasma bycoagulation assay 30 s 24-35 Fibrin D-dimer FEU measurement in platel et poor plasma (mass/volume) - 09/21/19 12:49 Fibrin D-dimer FEU measurement in platelet poor plasma (mass/volume) <= ug/mL 0.00-0.49 Comprehensive metabolic panel - 09/21/19 12:49 Serum or plasma sodium measurement (moles/volume) 142 mmol/L 135-145 Serum or plasma potassium measurement (moles/volume) 3.8 mmol/L 3.6-5.0 Serum or plasma chloride measurement (moles/volume) 106 mmol/L 98-107 Carbon dioxide 24 mmol/L 21-32 Serum or plasma anion gap determination (moles/volume) 12 mmol/L 5-14 Serum or plasma urea nitrogen measurement (mass/volume ) 18 mg/dL 7-18 Serum or plasma creatinine measurement (mass/volume) 1.01 mg/dL 0.60-1.30 Serum or plasma urea nitrogen/creatinine mass ratio 18 NRG Serum or plasma creatinine measurement w ith calculation of estimated glomerular filtration rate > NRG Serum or plasma glucose measurement (mass/volume) 170 mg/dL 70-105 Serum or plasma calcium measurement (mass/volume) 9.8 mg/dL 8.5-10.1 Serum or plasma total bilirubin measurement (mass/volu me) 0.6 mg/dL 0.1-1.0 Serum or plasma alkaline phosphatase dariela surement (enzymatic activity/volume) 64 U/L 40-136 Serum or plasma aspartate aminotransfera se measurement (enzymatic activity/volume) 12 U/L 5-34 Serum or plasma alanine aminotransferase measurement (enzymatic activity/volume) 24 U/L 0-55 Serum or plasma protein measurement (mass/volume) 7.3 g/dL 6.4-8.2 Serum or plasma albumin measurement (mass/volume) 4.8 g/dL 3.2-4.5 Magnesium - 09/21/19 12:49 Magnesium 1.9 mg/dL 1.6-2.4 Serum or plasma troponin i.cardiac measu rement (mass/volume) - 09/21/19 12:49 Serum or plasma troponin i.cardiac measurement (mass/v olume) < ng/mL <0.028 Myoglobin, serum - 09/21/19 12:49 Myoglobin, serum 56.4 ng/mL 10.0-92.0 Lipase - 09/21/19 12:49 Lipase 42 U/L 8-78 Serum or plasma troponin i.cardiac measu rement (mass/volume) - 09/21/19 14:54 Serum or plasma troponin i.cardiac measurement (mass/v olume) < ng/mL <0.028 COVID-19 ([facility]) - 01/31/20 11:21 CBC W/ AUTO DIFF (RFLX MAN DIFF IF IND) - 02/02/20 09:45 WBC 8.3 TH/CMM 4.5-10.8 RBC 5.66 ML/CMM 4.70-6.10 HGB 17.0 G/DL 14.0-18.0 HCT 49.5 % 42.0-52.0 MCV 88 FL 81-99 MCH 30.0 PG 27.0-33.0 MCHC 34.3 G/DL 31.0-36.0 RDW SD 44 FL 36-50 RDW CV 13.7 % 0.0-14.8 MPV 8.7 FL 9.3-12.5 PLT 285 TH/CMM 130-440 %NEUT 75.9 % NRG %LYMP 15.6 % NRG %MONO 7.5 % NRG %EOS 0.4 % NRG %BASO 0.2 % NRG #NEUT 6.27 TH/CMM 2.10-8.20 #LYMP 1.29 TH/CMM 0.90-5.20 #MONO 0.62 TH/CMM 0.16-1.00 #EOS 0.03 TH/CMM 0.00-0.80 #BASO 0.02 TH/CMM 0.00-0.20 CBC W/ AUTO DIFF (RFLX MAN DIFF IF IND) N/A NRG NRBC# 0.00 TH/CMM 0.00-0.00 NRBC% 0.0 /100WBC 0.0-2.0 MANUAL DIFF NOT IND NRG COMPREHENSIVE METABOLIC PANEL - 02/02/20 09:45 COMPREHENSIVE METABOLIC PANEL N/A NRG GLUCOSE 138 MG/DL 70-100 SODIUM 142 MEQ/L 135-148 POTASSIUM 3.4 MEQ/L 3.5-5.3 CHLORIDE 101 MEQ/L 96-110 CO2 27 MEQ/L 22-29 BUN 24 MG/DL 8-22 CREATININE 1.06 MG/DL 0.72-1.25 SGOT/AST 15 IU/L 10-40 SGPT/ALT 20 IU/L 8-54 ALK PHOS 72 IU/L 40-150 TOTAL PROTEIN 7.8 G/DL 5.5-8.5 ALBUMIN 5.0 G/DL 3.1-5.4 TOTAL BILI 0.8 MG/DL 0.0-1.5 CALCIUM 9.2 MG/DL 8.2-10.6 AGE 64 yrs NRG GFR NonAA 71 NRG GFR AA 86 NRG eGFR 71 mL/min/1.7 NRG eGFR AA* >60 mL/min/1.7 NRG LIPASE - 02/02/20 09:45 LIPASE 55 U/L 8-78 C REACTIVE PROTEIN - 02/02/20 09:45 C REACTIVE PROTEIN <0.5 MG/DL 0.0-1.0 UA ROUTINE C&S IF IND - 02/02/20 10:35 GLUCOSE >1000 NL: NEGATIVE mg/dl UA ROUTINE C&S IF IND N/A NRG COLOR Colorless NL: YELLOW CLARITY Clear NL: CLEAR SPEC GRAV 1.007 NL: 1.002 - 1.022 pH 5.0 NL: 5 - 9 PROTEIN Negative NL: NEGATIVE mg/dl KETONE Negative NL: NEGATIVE mg/dl BILIRUBIN Negative NL: NEGATIVE BLOOD Negative NL: NEGATIVE NITRITE Negative NL: NEGATIVE LEUK SCREEN Negative NL: NEGATIVE Micro Indicated? MICRO IND NRG RBC/HPF None Seen NL: NONE SEEN WBC/HPF None Seen NL: NONE SEEN BACTERIA/HPF None Seen NL: NONE SEEN SQUAMOUS EPI/LPF None Seen NL: NONE SE EN CULT SET UP? NO NRG TROPONIN-I ADV - 02/02/20 10:55 TROPONIN-I AD <0.04 ng/mL 0.04-0.40 Complete blood count (CBC) with automate d white blood cell (WBC) differential - 02/07/20 14:45 Blood leukocytes automated count (number/volume) 10.0 10*3/uL 4.3-11.0 Blood erythrocytes automated count (number/volume) 4.97 10*6/uL 4.35-5.85 Venous blood hemoglobin measurement (mass/volume) 14.9 g/dL 13.3-17.7 Blood hematocrit (volume fraction) 43 % 40-54 Automated erythrocyte mean corpuscular volume 87 [ foz_us] 80-99 Automated erythrocyte mean corpuscular h emoglobin (mass per erythrocyte) 30 pg 25-34 Automated erythrocyte mean corpuscular h emoglobin concentration measurement (mass/volume) 35 g/dL 32-36 Automated erythrocyte distribution width ratio 14. 0 % 10.0- 14.5 Automated blood platelet count (count/volume) 236 10*3/uL 130-400 Automated blood platelet mean volume measurement 9.2 [foz_us] 7.4-10.4 Automated blood neutrophils/100 leukocytes 79 % 42-75 Automated blood lymphocytes/100 leukocytes 15 % 12-44 Blood monocytes/100 leukocytes 6 % 0-12 Automated blood eosinophils/100 leukocytes 0 % 0-10 Automated blood basophils/100 leukocytes 0 % 0-10 Blood neutrophils automated count (number/volume) 7.9 10*3 1.8-7.8 Blood lymphocytes automated count (number/volume) 1.5 10*3 1.0-4.0 Blood monocytes automated count (number/volume) 0. 6 10*3 0.0-1.0 Automated eosinophil count 0.0 10*3/uL 0 .0-0.3 Automated blood basophil count (count/volume) 0.0 10*3/uL 0.0-0.1 Blood lactic acid measurement (moles/vol ume) - 02/07/20 14:45 Blood lactic acid measurement (moles/volume) 0.88 mmol/L 0.50-2.00 Erythrocyte sedimentation rate by zully gren method - 02/07/20 14:45 Erythrocyte sedimentation rate by westergren method 3 mm 0- 30 Comprehensive metabolic panel - 02/07/20 14:45 Serum or plasma sodium measurement (moles/volume) 142 mmol/L 135-145 Serum or plasma potassium measurement (moles/volume) 2.9 mmol/L 3.6-5.0 Serum or plasma chloride measurement (moles/volume) 101 mmol/L 98-107 Carbon dioxide 31 mmol/L 21-32 Serum or plasma anion gap determination (moles/volume) 10 mmol/L 5-14 Serum or plasma urea nitrogen measurement (mass/volume ) 21 mg/dL 7-18 Serum or plasma creatinine measurement (mass/volume) 1.21 mg/dL 0.60-1.30 Serum or plasma urea nitrogen/creatinine mass ratio 17 NRG Serum or plasma creatinine measurement w ith calculation of estimated glomerular filtration rate > NRG Serum or plasma glucose measurement (mass/volume) 128 mg/dL 70-105 Serum or plasma calcium measurement (mass/volume) 9.4 mg/dL 8.5-10.1 Serum or plasma total bilirubin measurement (mass/volu me) 0.5 mg/dL 0.1-1.0 Serum or plasma alkaline phosphatase dariela surement (enzymatic activity/volume) 67 U/L 40-136 Serum or plasma aspartate aminotransfera se measurement (enzymatic activity/volume) 17 U/L 5-34 Serum or plasma alanine aminotransferase measurement (enzymatic activity/volume) 21 U/L 0-55 Serum or plasma protein measurement (mass/volume) 7.3 g/dL 6.4-8.2 Serum or plasma albumin measurement (mass/volume) 4.6 g/dL 3.2-4.5 PROCALCITONIN (PCT) - 02/07/20 14:45 PROCALCITONIN (PCT) 0.05 ng/mL <0.10 Serum or plasma troponin i.cardiac measu rement (mass/volume) - 02/07/20 14:45 Serum or plasma troponin i.cardiac measurement (mass/v olume) < ng/mL <0.028 Serum or plasma amylase measurement (enz ymatic activity/volume) - 02/07/20 14:45 Serum or plasma amylase measurement (enzymatic activit y/volume) 112 U/L 25-125 Lipase - 02/07/20 14:45 Lipase 235 U/L 8-78 Serum or plasma C reactive protein measu rement (mass/volume) - 02/07/20 14:45 Serum or plasma C reactive protein measurement (mass/v olume) 1.10 mg/dL 0.00-0.50 Serum or plasma lithium measurement (mol es/volume) - 02/07/20 14:45 BNP PT 24.6 pg/mL <100.0 Complete urinalysis with reflex to cultu re - 02/07/20 14:59 Urine color determination YELLOW NRG Urine clarity determination CLEAR NR G Urine pH measurement by test strip 5.5 5-9 Specific gravity of urine by test strip <= 1.016-1.022 Urine protein assay by test strip, semi-quantitative NEGATIVE NEGATIVE Urine glucose detection by automated test strip 3+ NEGATIVE Erythrocytes detection in urine sediment by light micr oscopy NEGATIVE NEGATIVE Urine ketones detection by automated test strip TR HUI NEGATIVE Urine nitrite detection by test strip NEGATIVE NEGATIVE Urine total bilirubin detection by test strip NEGA TIVE NEGATIVE Urine urobilinogen measurement by automated test strip (mass/volume) 0.2 mg/dL < = 1.0 Urine leukocyte esterase detection by dipstick NEG ATIVE NEGATIVE Automated urine sediment erythrocyte cou nt by microscopy (number/high power field) RARE NRG Automated urine sediment leukocyte count by microscopy (number/high power field) NONE NRG Bacteria detection in urine sediment by light microsco py NEGATIVE NRG Squamous epithelial cells detection in u rine sediment by light microscopy RARE NRG Crystals detection in urine sediment by light microsco py NONE NRG Casts detection in urine sediment by light microscopy NONE NRG Mucus detection in urine sediment by light microscopy NEGATIVE NRG Complete urinalysis with reflex to culture NO NRG Encounters ACCT No. Visit Date/Time Discharge Status Pt. Type Provider Facility Loc./Unit Complaint [id number] 02/02/2020 09:14:43 Document Registration [id number] 02/02/2020 09:11:00 Document Registration [id number] 01/04/2020 11:24:55 Document Registration [id number] 12/08/2019 07:58:06 Document Registration [id number] 10/04/2019 11:51:26 Document Registration [id number] 05/20/2019 07:27:30 Document Registration [id number] 12/11/2018 20:11:22 Document Registration [id number] 12/09/2018 09:11:12 Document Registration [id number] 12/09/2018 08:56:51 Document Registration [id number] 12/09/2017 09:28:04 Document Registration [id number] 12/09/2017 09:24:47 Document Registration [id number] 12/04/2017 07:11:29 Document Registration [id number] 08/27/2017 07:54:03 Document Registration [id number] 06/26/2017 15:10:40 Document Registration [id number] 06/26/2017 12:29:00 Document Registration [id number] 06/26/2017 12:25:15 Document Registration [id number] 05/21/2017 07:15:33 Document Registration [id number] 04/05/2017 11:36:38 Document Registration [id number] 04/05/2017 11:24:29 Document Registration [id number] 02/18/2017 11:05:00 Document Registration [id number] 12/13/2019 10:35:00 23:59:59 CLS Outpatient Almaz SORENSEN MD [facility] CARD CAD [id number] 09/21/2019 12:43:00 16:20:00 DIS Emergency BRI DUCKWORTH MD [facility] ER BACK/CHEST PAIN [id number] 07/29/2019 09:20:00 23:59:59 CLS Outpatient JANEEN CRUZ DO [facility] LAB Z00.00 [id number] 04/12/2019 08:57:00 11:45:00 DIS Outpatient DENTON WOLFF DO [facility] ENDO LOOSE STOOLS [id number] 04/07/2019 08:08:00 23:59:59 CLS Outpatient JANEEN CRUZ DO [facility] LAB E78.0,E78.1 [id number] 04/05/2019 15:00:00 15:16:00 DIS Outpatient DENTON WOLFF DO [facility] PREOP COLONOSCOPY [id number] 03/29/2019 09:40:00 23:59:59 CLS Preadmit EDNTON WOLFF DO [facility] ENDO LOOSE STOOLS [id number] 03/09/2019 08:49:00 23:59:59 CLS Outpatient IQRA RED MD [facility] RAD LT RENAL CYSTS [id number] 03/03/2019 08:52:00 23:59:59 CLS Outpatient MATEUS GHOTRA APRN [facility] LAB DM2 UNCONTROLLE D [id number] 02/23/2019 09:43:00 23:59:59 CLS Outpatient FADY SORENSEN MD [facility] RAD RENAL CYSTS,BILAT [id number] 02/03/2019 12:18:00 23:59:59 CLS Outpatient FADY SORENSEN MD [facility] LAB HYPERTENSION [id number] 12/09/2018 13:15:00 13:00:00 DIS Outpatient Almaz SORENSEN MD [facility] CATH UNSTABLE ANGINA [id number] 11/30/2018 08:29:00 23:59:59 CLS Outpatient CRUZ DO, JANEEN [facility] LAB E11.65,Z00.00 [id number] 11/30/2018 08:27:00 23:59:59 CLS Outpatient FADY SORENSEN MD [facility] RAD RENAL CYSTS,BILAT [id number] 10/19/2018 05:52:00 09:30:00 DIS Outpatient SATHISH SALOMON MD [facility] SDC RADICULOPATHY [id number] 10/12/2018 08:58:00 10:44:00 DIS Outpatient SATHISH SALOMON MD [facility] PREOP PLACEMENT PERMANENT SPI NAL CORD STIMULATOR [id number] 09/16/2018 05:35:00 11:48:00 DIS Outpatient SATHISH SALOMON MD [facility] PREOP PLACEMENT PERMANENT SPI NAL CORD STIMULATOR [id number] 2018 17:45:00 16:30:00 DIS Inpatient CRUZ DO, JANEEN [facility] 4TH CHEST PAIN [id number] 08/06/2018 08:35:00 23:59:59 CLS Outpatient CRUZ DO, JANEEN [facility] LAB E11.65 [id number] 06/17/2018 09:31:00 018 23:59:59 CLS Outpatient FADY SORENSEN MD [facility] LAB HYPERTENSION,CKD [id number] 05/18/2018 08:31:00 018 23:59:59 CLS Outpatient Almaz SORENSEN MD [facility] CARD BRADYCARDIA,CAD,HTN,OBE SITY [id number] 01/08/2018 13:15:00 018 23:59:59 CLS Outpatient FADY SORENSEN MD [facility] RAD HYPERTENSION-BENIGN,CHR ONIC KIDNEY DISEASE, DM2 [id number] 12/10/2017 18:20:00 018 18:00:00 DIS Outpatient JANEEN CRUZ DO [facility] CATH CHEST PAIN, CAD [id number] 11/18/2017 08:39:00 018 23:59:59 CLS Outpatient Almaz SORENSEN MD [facility] CARD I25.10 CAD [id number] 09/15/2017 12:33:00 018 23:59:59 CLS Outpatient Almaz SORENSEN MD [facility] CARD 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 [id number] 08/21/2017 12:30:00 018 23:59:59 CLS Preadmit Almaz SORENSEN MD [facility] CARD CHEST TIGHTNESS R07.89 [id number] 06/12/2017 08:01:00 018 00:01:00 DIS Outpatient Almaz SORENSEN MD [facility] CARD CHEST TIGHTNESS R07.89 [id number] 06/18/2017 15:30:00 017 23:59:59 CLS Preadmit Almaz SORENSEN MD [facility] CARD BRADYCARDIA [id number] 05/15/2017 14:53:00 017 00:01:00 DIS Outpatient Almaz SORENSEN MD [facility] CARD CHEST TIGHTNESS R07.89 [id number] 05/13/2017 17:51:00 017 18:09:00 DIS Emergency BRI DUCKWORTH MD [facility] ER MID BACK PAIN [id number] 05/12/2017 10:40:00 017 23:59:59 CLS Outpatient Almaz SROENSEN MD [facility] CARD BRADYCARDIA [id number] 05/12/2017 10:38:00 017 23:59:59 CLS Outpatient Almaz SORENSEN MD [facility] CARD CHEST TIGHTNESS R07.89 [id number] 05/01/2017 16:45:00 017 16:45:00 DIS Inpatient JANEEN CRUZ DO, [facility] ICU CHEST PAIN POST RCA OVIDIO NT [id number] 04/25/2017 20:20:00 017 13:26:00 DIS Outpatient JANEEN CRUZ DO [facility] CATH CHEST PAIN [id number] 04/23/2017 15:32:00 017 23:59:59 CLS Preadmit Almaz SORENSEN MD [facility] CARD CHEST TIGHTNESS [id number] 05/17/2016 09:01:00 016 11:35:00 DIS Emergency JORDAN GRANADOS APRN [facility] ER POST NECK SURGERY [id number] 04/13/2015 09:03:00 015 23:59:59 CLS Outpatient SATHISH SALOMON MD [facility] RAD RADICULOPATHY [id number] 12/13/2014 06:44:00 015 08:44:00 DIS Emergency BRI DUCKWORTH MD [facility] ER RT SIDE ABD ROBERTA N [id number] 01/20/2014 15:48:00 014 00:01:00 DIS Outpatient CRUZ DO, JANEEN [facility] CARD PALP [id number] 03/17/2014 15:36:00 014 23:59:59 CLS Outpatient JUNE ALVAREZ MD [facility] RAD HEADACHE SINUS PRESSURE [id number] 02/07/2020 14:14:[address] Inpatient JANEEN CRUZ DO [facility] 4TH ABD PAIN [id number] 04/03/2018 06:01:00 Document Registration [id number] 04/21/2014 15:30:00 Document Registration [id number] 12/12/2011 07:45:00 Document Registration [id number] 11/13/2011 15:27:00 Document Registration [id number] 10/21/2011 11:58:00 Document Registration [id number] 10/17/2011 10:40:00 Document Registration [id number] 10/16/2011 10:24:00 Document Registration [id number] 09/25/2011 12:21:00 Document Registration [id number] 08/09/2011 20:48:00 Document Registration [id number] 06/01/2011 18:16:00 Document Registration [id number] 12/02/2019 09:32:00 12/02/2019 23:59 :00 DIS Outpatient NICK GAMLBE [id number] 05/18/2019 09:41:00 05/18/2019 23:59: 00 DIS Outpatient NICK GAMBLE [id number] 11/17/2018 09:53:00 11/17/2018 23:59: 00 DIS Outpatient NICK GAMBLE [id number] 05/19/2018 09:22:00 05/19/2018 23:59: 00 DIS Outpatient NICK GAMBLE [id number] 02/10/2018 16:10:00 02/10/2018 23:59: 00 DIS Outpatient Janeen Cruz [id number] 11/18/2017 10:26:00 11/18/2017 23:59: 00 DIS Outpatient NICK GAMBLE [id number] 08/28/2017 09:07:00 08/28/2017 23:59: 00 DIS Outpatient NICK GAMBLE [id number] 01/31/2020 10:40:00 01/31/2020 23:59: 59 CLS Outpatient SANDY MCDONALD LAC [id number] 01/31/2020 10:40:00 Document Registration [id number] 11/24/2018 18:04:16 11/24/2018 23:59: 59 CLS Outpatient Sri King [id number] 12/26/2017 17:12:32 12/26/2017 23:59: 59 CLS Outpatient Nancy Carrero [id number] 08/06/2017 16:44:48 08/06/2017 23:59: 59 CLS Outpatient Nancy Carrero [id number] 06/24/2017 16:03:20 06/24/2017 23:59: 59 CLS Outpatient Nancy Carrero [id number] 04/20/2016 11:10:47 04/20/2016 23:59: 59 CLS Outpatient Tej Hughes [id number] 03/21/2014 20:33:18 03/21/2014 23:59: 59 CLS Outpatient Nancy Carrero [id number] 12/06/2013 16:40:35 12/06/2013 23:59: 59 CLS Outpatient Chante Thompson [id number] 10/20/2013 15:46:00 10/20/2013 23:59: 59 [facility] [id number] 09/23/2013 09:06:24 09/23/2013 23:59: 59 CLS [facility] [id number] 09/16/2013 09:45:27 09/16/2013 23:59: 59 CLS Outpatient [facility] [id number] 09/02/2013 09:50:02 09/02/2013 23:59: 59 CLS Outpatient [facility] Thompson [id number] 08/06/2013 09:20:07 08/06/2013 23:59: 59 CLS [facility]
--- NOTE | 2020-02-07 18:48 | Consultation - Surgery ---
History of Present Illness History of Present Illness Patient Consulted On(samy/time) 02/07/20 18:42 Date Seen by Provider: Feb 07, 2020 Time Seen by Provider: 17:00 History of Present Illness Consult requested by Dr. Cruz for right lower quadrant abdominal pain. Patient is a 64 year old male who has been having pain in the right lower quadrant for about a week. Usually more intense during the mornings, but continues to have pain that radiates into his back. He first at onset of pain had diarrhea, which then resolved. Patient then had normal bowel movements without any blood. Urinating without difficulty. Pain is nagging type pain he currently rated it a 6-7/10. He states he also hada tick bite at initial start of pain and he reports tick panel is negative along with covid testing. He has had nausea without emesis. He states he had a ct scan as well earlier in the week without abnormalities. Denies fever sweats chills shortness of breath or chest pain. Acute abdominal series done today demonstrating nonspecific bowel gas pattern. There appear to be some mildly distended fluid-filled small bowel loops. Allergies and Home Medications Allergies Coded Allergies: Penicillins (Verified Allergy, Severe, Rash, 02/07/20) diclofenac sodium (Verified Allergy, Mild, DIZZINESS, 02/07/20) methocarbamol (Verified Allergy, Mild, RASH, 02/07/20) Home Medications Amlodipine Besylate 10 Mg Tablet, 10 MG PO DAILY, (Reported) Aspirin 81 Mg Tablet.dr, 81 MG PO DAILY, (Reported) Atorvastatin Calcium 40 Mg Tablet, 40 MG PO HS, (Reported) Cholecalciferol (Vitamin D3) 50,000 Unit Capsule, 50,000 UNIT PO MoTh, (Reported) Clopidogrel Bisulfate 75 Mg Tablet, 75 MG PO DAILY, (Reported) Dicyclomine HCl 10 Mg Capsule, 10 MG PO DAILY, (Reported) Doxazosin Mesylate 4 Mg Tablet, 4 MG PO HS, (Reported) Empagliflozin 25 Mg Tablet, 25 MG PO DAILY, (Reported) Epinephrine 0.3 Mg/0.3 Ml Auto.injct, 0.3 MG IJ UD PRN for ALLERGIC REACTION, (Reported) Fexofenadine HCl 180 Mg Tablet, 180 MG PO DAILY, (Reported) Fluticasone Propionate 16 Gm [place].susp, 2 SPRAYS NS DAILY, (Reported) Insulin Aspart 300 Units/3 Ml Solution, 1-10 UNITS SQ SLIDING/SCALE, (Reported) Insulin Detemir 100 Unit/1 Ml Insuln.pen, 80 UNITS SC HS, (Reported) Lisinopril 20 Mg Tablet, 20 MG PO HS, (Reported) Nitroglycerin 0.4 Mg Tab.subl, 0.4 MG SL UD PRN for CHEST PAIN, (Reported) Potassium Chloride 10 Meq Tablet.er, 10 MEQ PO DAILY, (Reported) Ranitidine HCl 75 Mg Tablet, 75 MG PO DAILY, (Reported) Spironolactone 50 Mg Tablet, 50 MG PO DAILY, (Reported) Torsemide 10 Mg Tablet, 10 MG PO DAILY, (Reported) Patient Home Medication List Home Medication List Reviewed: Yes Past Palvsym-Dbqqwa-Wzgxwg Hx Patient Social History Alcohol Use: Denies Use Recreational Drug Use: No Smoking Status: Never a Smoker Type Used: Cigarettes 2nd Hand Smoke Exposure: No Recent Foreign Travel: No Contact w/Someone Who Travel: No Recent Infectious Disease Expo: No Recent Hopitalizations: No Physical Abuse Screen: No Sexual Abuse: No Immunizations Up To Date Tetanus Booster (TDap): Unknown PED Vaccines UTD: No Date of Pneumonia Vaccine: Jun 08, 2017 Date of Influenza Vaccine: May 25, 2018 Seasonal Allergies Seasonal Allergies: No Surgeries History of Surgeries: Yes (cervical disc fusion, left shoulder surgery X2, CATARACTS) Surgeries: Coronary Stent, Gallbladder, Orthopedic, Tonsillectomy, Vasectomy Respiratory History of Respiratory Disorde: Yes Respiratory Disorders: Sleep Apnea Cardiovascular History of Cardiac Disorders: Yes (-2016) Cardiac Disorders: Coronary Artery Disease, High Cholesterol, Hypertension Neurological History of Neurological Disord: No Neurological Disorders: Neuropathy Reproductive System Sexually Transmitted Disease: No HIV/AIDS: No Genitourinary History of Genitourinary Disor: No Genitourinary Disorders: Renal Failure, Polycystic Kidney Disease Gastrointestinal History of Gastrointestinal Di: Yes Gastrointestinal Disorders: Gastroesophageal Reflux Musculoskeletal History of Musculoskeletal Dis: Yes Musculoskeletal Disorders: Degenerate Disk Disease, Arthritis, Chronic Back Pain Endocrine History of Endocrine Disorders: Yes Endocrine Disorders: Diabetes, Non-Insulin dep HEENT History of HEENT Disorders: Yes (GLASSES) HEENT Disorders: Cataract Loss of Vision: Bilateral Hearing Impairment: Denies Cancer History of Cancer: No Psychosocial History of Psychiatric Problem: No Integumentary History of Skin or Integumenta: No Blood Transfusions History of Blood Disorders: No Adverse Reaction to a Blood Tr: No (N/A) Reviewed Nursing Assessment Reviewed/Agree w Nursing PMH: Yes Family Medical History Significant Family History: Diabetes Family Medial History: Asthma 19 FATHER, Onset:Unknown Colon cancer maternal grandmother, Onset:Unknown Dementia 19 FATHER, Onset:60 years & older FH: congestive heart failure maternal grandfather, Onset:Unknown FHx: colon cancer Myocardial infarction 19 MOTHER, Onset:60 years & older Review of Systems-General Constitutional: No chills, No fever EENTM: no symptoms reported; No hearing loss, No ear pain Respiratory: no symptoms reported; No cough, No dyspnea on exertion Cardiovascular: No chest pain, No edema Gastrointestinal: RLQ, abdominal pain, nausea; No vomiting Genitourinary: no symptoms reported; No decreased output, No hematuria Musculoskeletal: back pain Skin: No change in color, No change in hair/nails Psychiatric/Neurological: Denies Anxiety, Denies Depressed, Denies Emotional Problems All Other Systems Reviewed Negative Unless Noted: Yes (Negative excepted noted.) Physical Exam-General Problems Physical Exam Vital Signs Vital Signs - First Documented Capillary Refill : Less Than 3 SecondsLess Than 3 Seconds General Appearance: WD/WN, no apparent distress, obese HEENT: PERRL/EOMI, normal ENT inspection Neck: non-tender, full range of motion, supple, normal inspection Respiratory: chest non-tender, no respiratory distress, no accessory muscle use Cardiovascular: regular rate, rhythm, no edema Gastrointestinal: No distended, No guarding, No rebound; tenderness (right lower quadrant, no guarding or rebounding) Back: CVA tenderness (R) (minimal) Extremities: non-tender, normal inspection, no pedal edema Neurologic/Psychiatric: carpet cleaner II-XII nml as tested, no motor/sensory deficits, alert, normal mood/affect, oriented x 3 Skin: normal color, warm/dry Lymphatic: no adenopathy Data Review Labs Laboratory Tests 02/07/20 14:45: White Blood Count 10.0, Red Blood Count 4.97, Hemoglobin 14.9, Hematocrit 43, Mean Corpuscular Volume 87, Mean Corpuscular Hemoglobin 30, Mean Corpuscular Hemoglobin Concent 35, Red Cell Distribution Width 14.0, Platelet Count 236, Mean Platelet Volume 9.2, Neutrophils (%) (Auto) 79H, Lymphocytes (%) (Auto) 15, Monocytes (%) (Auto) 6, Eosinophils (%) (Auto) 0, Basophils (%) (Auto) 0, Neutrophils # (Auto) 7.9H, Lymphocytes # (Auto) 1.5, Monocytes # (Auto) 0.6, Eosinophils # (Auto) 0.0, Basophils # (Auto) 0.0, Erythrocyte Sedimentation Rate 3, Sodium Level 142, Potassium Level 2.9L, Chloride Level 101, Carbon Dioxide Level 31, Anion Gap 10, Blood Urea Nitrogen 21H, Creatinine 1.21, Estimat Glomer ular Filtration Rate > 60, BUN/Creatinine Ratio 17, Glucose Level 128H, Lactic Acid Level 0.88, Calcium Level 9.4, Corrected Calcium , Total Bilirubin 0.5, Aspartate Amino Transf (AST/SGOT) 17, Alanine Aminotransferase (ALT/SGPT) 21, A lkaline Phosphatase 67, Troponin I < 0.028, C-Reactive Protein High Sensitivity 1.10H, B-Type Natriuretic Peptide 24.6, Total Protein 7.3, Albumin 4.6H, Amylase Level 112, Lipase 235H, Procalcitonin 0.05 02/07/20 14:59: Urine Color YELLOW, Urine Clarity CLEAR, Urine pH 5.5, Urine Specific [place] <= 1.005, Urine Protein NEGATIVE, Urine Glucose (UA) 3+H, Urine Ketones TRACEH, Urine Nitrite NEGATIVE, Urine Bilirubin NEGATIVE, Urine Urobilinogen 0.2, Urine Leukocyte Esterase NEGATIVE, Urine RBC (Auto) NEGATIVE, Urine RBC RARE, Urine WBC NONE, Urine Squamous Epithelial Cells RARE, Urine Crystals NONE, Urine Bacteria NEGATIVE, Urine Casts NONE, Urine Mucus NEGATIVE, Urine Culture Indicated NO Assessment/Plan Assessment/Plan Assessment/Plan right lower quadrant abdominal pain nausea hypokalemia lipase elevated On clear liquid diet. Abdominal x ray nonspecific bowel gas pattern with some mildly distended fluid-filled small bowel loops, elevated lipase, and reports normal ct scan earlier in the week. Potassium being replaced at this time. Awaiting ct report from outside hospital. Could have slight pancreatitis. Clear liquids repeat labs and see if abdominal exam changes, may need to repeat ct if pain persists. No surgical intervention at this time will follow. Clinical Quality Measures DVT/VTE Risk/Contraindication: Risk Factor Score Per Nursin RFS Level Per Nursing on Admit: 3=High SLOANE HERRON DO Feb 07, 2020 18:48
--- NOTE | 2020-02-07 19:07 | Progress Note ---
Progress Note Pt is a 64-year-old M presenting with Nausea Pt starting feeling nauseous last Friday and he never threw up, but he had some diarrhea Pt went to [facility] on Friday and was tested for COVID because he had some of the symptoms, but he did not have COVID. Pt went to [facility] on Friday because he thought he was having an appendicitis. Pt stated that his labs looked good and nothing was wrong with him. Pt was asked if he wanted to stay in the hospital overnight. Pt declined a hospital stay. Pt stated that the sharp pain in his stomach has gone away, but he still feels like he is nauseous. Pt also removed a tick from himself on Friday, but the tests for that were all negative also. Pt stated that his biggest complaint is the Nausea and now his back is hurting also and kind of shaking. Pt is urinating more than normal, but his blood sugars have been okay. Pt is having a little trouble with his BM. Pt stated whatever he was given in the ER slowed his BM. Pt confirmed that this has gone on for about a week. Pt has been to urgent care, the ER, and had a CT and Labs done. Pt has been drinking more water. Pt was given Doxycycline. Pt has finished that. Pt has not had any fevers also. Pt checks his temp when he checks his blood sugar. Pt has been taking care of his who just had back surgery. Pt had a Colonoscopy done by Dr. Ann. I stated that we have one preferred option. I stated that I do not really know what is going on, but my solution is that I could put the Pt in the hospital overnight. I stated that I can have someone watch over him and do some labs and have some IV fluids. I stated that the surgeon could look at him for further diagnosis. I stated that the hospital stay is the only thing we haven't tried yet. Pt stated that he would be okay with that. I stated sometimes all it takes is a surgeon looking at him. Pt will be admitted to the 4th floor at [facility] for overnight observation. Physical Examination: Pt does not have any pain on the top, bottom, or left side of his stomach. He only has pain on his right side. Pt has had gallbladder surgery. Pt has had a lot of gas production also. Pt has not had any other issues though. Pt's back has been bothering him off and on also. Pt was leaning on his left side a lot to relieve the pain on his right side. This document was scribed by JANEEN Thompson DO Feb 07, 2020 19:07
[2020-02-07] MEDS ORDERED: PANTOPRAZOLE 40 MG (PROTONIX) VIAL IV NR (19:15)
[2020-02-07 19:35] VITALS: BP 138/73
[2020-02-07] MEDS: MELATONIN 3 MG TABLET PO PRN (21:22)
[2020-02-08 00:30] VITALS: BP 131/80
[2020-02-08] MEDS: NS IV 1000 ML 1,000 ML IV SCH ×2 (03:00→14:57)
[2020-02-08 04:00] VITALS: BP 128/76
[2020-02-08 05:53] LABS: BASOPHILS % (AUTO) 0 % (0-10); EOSINOPHILS # (AUTO) 0.1 10^3/uL (0.0-0.3); EOSINOPHILS % (AUTO) 2 % (0-10); HEMATOCRIT 42 % (40-54); LYMPHOCYTES # (AUTO) 1.5 X 10^3 (1.0-4.0); LYMPHOCYTES % (AUTO) 20 % (12-44); MEAN CORPUSCULAR HEMOGLOBIN 30 PG (25-34); MEAN CORPUSCULAR HGB CONC 34 G/DL (32-36); MEAN CORPUSCULAR VOLUME 88 FL (80-99); MONOCYTES # (AUTO) 0.6 X 10^3 (0.0-1.0); MONOCYTES % (AUTO) 8 % (0-12); NEUTROPHILS # (AUTO) 5.2 X 10^3 (1.8-7.8); NEUTROPHILS % (AUTO) 70 % (42-75); PLATELET COUNT 229 10^3/uL (130-400); RED CELL DISTRIBUTION WIDTH 14.3 % (10.0-14.5); WHITE BLOOD COUNT 7.4 10^3/uL (4.3-11.0)
[2020-02-08 06:16] LABS: ALBUMIN 3.9 GM/DL (3.2-4.5); CHLORIDE 103 MMOL/L (98-107); SODIUM 141 MMOL/L (135-145)
[2020-02-08 06:17] LABS: CALCIUM 8.5 MG/DL (8.5-10.1)
[2020-02-08 06:18] LABS: GLUCOSE 129 MG/DL (70-105); TOTAL PROTEIN 6.1 GM/DL (6.4-8.2)
[2020-02-08 06:19] LABS: CARBON DIOXIDE 26 MMOL/L (21-32)
[2020-02-08 06:20] LABS: BILIRUBIN,TOTAL 0.9 MG/DL (0.1-1.0)
[2020-02-08 06:22] LABS: ALKALINE PHOSPHATASE 62 U/L (40-136); CREATININE SERUM 0.82 MG/DL (0.60-1.30); GFR ESTIMATED > 60
[2020-02-08 06:23] LABS: BUN/CREATININE RATIO 21
[2020-02-08 06:25] LABS: ALANINE AMINOTRANSFERASE 22 U/L (0-55); LIPASE 145 U/L (8-78)
--- NOTE | 2020-02-08 07:07 | History & Physical ---
History of Present Illness HPI/Chief Complaint CC: Abdominal Pain HPI: This is a 64yoWM very complex medical problems including diabetes insulin dependent, hypertension, hyperlipidemia, and CAD and CHELSEA who presented to my clinic with abdominal pain, had urgent care visit placed on Doxycycline since he found a tick on him. He completed that in addition to that he worsened, went to [facility] ER, CT scan, Labs all within normal limits and sent home. He presented again, I went ahead and admitted him to observation and it appears he has acute pancreatitis. Dr. Nieves was consulted and will manage conservatively. Pt feels much better, less nausea, hypokalemia aggressively being replaced, and overall will continue supportive care and hopefully pancreatitis will resolve. Source: patient Exam Limitations: no limitations Date Seen 02/08/20 Time Seen by a Provider: 10:00 Attending Physician Yulia Cruz DO PCP Yulia Cruz DO Referring Physician Date of Admission Feb 07, 2020 at 14:14 Home Medications & Allergies Home Medications Reviewed patient Home Medication Reconciliation performed by pharmacy medication reconciliations collections technician and/or nursing. Patients Allergies have been reviewed. Allergies Allergies Coded Allergies Penicillins (Verified Allergy, Severe, Rash, 02/07/20) diclofenac sodium (Verified Allergy, Mild, DIZZINESS, 02/07/20) methocarbamol (Verified Allergy, Mild, RASH, 02/07/20) Past Nbtmnxa-Ufccee-Ketgdc Hx Past Med/Social Hx: Reviewed Nursing Past Med/Soc Hx, Reviewed and Corrections made Patient Social History Marrital Status: Employed/Student: retired Alcohol Use: Denies Use Alcohol Beverage of Choice: Beer Recreational Drug Use: No Smoking Status: Never a Smoker Type Used: Cigarettes 2nd Hand Smoke Exposure: No Physical Abuse Screen: No Sexual Abuse: No Recent Foreign Travel: No Contact w/other who traveled: No Recent Hopitalizations: No Recent Infectious Disease Expo: No Immunizations Up To Date Tetanus Booster (TDap): Unknown Pediatric: No Date of Pneumonia Vaccine: Jun 08, 2017 Date of Influenza Vaccine: May 25, 2018 Seasonal Allergies Seasonal Allergies: No Past Medical History Surgeries: Coronary Stent, Gallbladder, Orthopedic, Tonsillectomy, Vasectomy Respiratory: Pneumonia, Sleep Apnea Currently Using CPAP: Yes (at home) Currently Using BIPAP: No Cardiac: Angina, Coronary Artery Disease, High Cholesterol, Hypertension Neurological: Neuropathy Sexually Transmitted Disease: No HIV/AIDS: No Genitourinary: Renal Failure, Polycystic Kidney Disease Gastrointestinal: Gastroesophageal Reflux, Chronic Constipation Musculoskeletal: Degenerate Disk Disease, Arthritis, Chronic Back Pain Endocrine: Diabetes, Insulin dep HEENT: Cataract Loss of Vision: Bilateral Hearing Impairment: Denies Did You Recieve Any Treatments: No History of Blood Disorders: No Adverse Reaction to Blood [place]: No (N/A) Family History Asthma 19 FATHER, Onset:Unknown Colon cancer maternal grandmother, Onset:Unknown Dementia 19 FATHER, Onset:60 years & older FH: congestive heart failure maternal grandfather, Onset:Unknown FHx: colon cancer Myocardial infarction 19 MOTHER, Onset:60 years & older Diabetes Review of Systems Constitutional: see HPI Gastrointestinal: abdominal pain, loss of appetite, nausea, vomiting Physical Exam Physical Exam Vital Signs Vital Signs - First Documented Capillary Refill : Less Than 3 SecondsLess Than 3 Seconds Height, Weight, BMI Height: 5'10.00" Weight: 249lbs. 0.0oz. [id number]; 35.93 BMI Method:Stated General Appearance: No Apparent Distress, WD/WN, Obese Eyes: Bilateral Eye Normal Inspection, Bilateral Eye PERRL HEENT: PERRL/EOMI, TMs Normal, Normal ENT Inspection, Pharynx Normal Neck: Full Range of Motion, Normal Inspection, Non Tender, Supple, Carotid Bruit Respiratory: Chest Non Tender, Lungs Clear, Normal Breath Sounds, No Accessory Muscle Use, No Respiratory Distress Cardiovascular: Regular Rate, Rhythm, No Edema, No Gallop, No JVD, No Murmur, Normal Peripheral Pulses Gastrointestinal: Normal Bowel Sounds, No Organomegaly, No Pulsatile Mass, Non Tender, Soft, Tenderness Back: Normal Inspection, No CVA Tenderness, No Vertebral Tenderness Extremity: Normal Capillary Refill, Normal Inspection, Normal Range of Motion, Non Tender, No Calf Tenderness, No Pedal Edema Neurologic/Psychiatric: Alert, Oriented x3, No Motor/Sensory Deficits, Normal Mood/Affect Skin: Normal Color, Warm/Dry Lymphatic: No Adenopathy Results Results/Procedures Labs Laboratory Tests 02/07/20 14:45 02/08/20 05:00 Patient resulted labs reviewed. Assessment/Plan Admission Diagnosis Assessment: Abdominal Pain recurrent in type now with acute pancreatitis history of Gallbladder removal in a non drinker DM HTN HLP CHELSEA CAD CRI Plan: Appreciate Dr. iNeves Supportive Care IV fluids Pain medication Admission Status: Inpatient Order (span 2 midnights) Reason for Inpatient Admission: Acute Pancreatitis Diagnosis/Problems Diagnosis/Problems (1) Pancreatitis (2) Right lower quadrant abdominal pain Status: Acute (3) Radiculopathy Status: Resolved Resolution Date/Time: 10/19/18 @ 10:29 (4) CHELSEA (obstructive sleep apnea) Status: Chronic (5) Obesity Status: Chronic (6) Hypertension Status: Chronic (7) Hyperlipidemia Status: Chronic (8) CAD (coronary artery disease) Status: Chronic (9) Diabetes mellitus Status: Chronic Clinical Quality Measures DVT/VTE Risk/Contraindication: Risk Factor Score Per Nursin RFS Level Per Nursing on Admit: 3=High YULIA CRUZ DO Feb 08, 2020 07:07
[2020-02-08 08:00] VITALS: BP 134/76
[2020-02-08] MEDS: PANTOPRAZOLE 40 MG (PROTONIX) VIAL IV SCH (08:39)
[2020-02-08] MEDS: CLOPIDOGREL 75 MG (PLAVIX) TABLET PO SCH (08:39)
[2020-02-08] MEDS: MAGNESIUM 1 GM/100 ML IVPB 100 ML IV NR ×2 (08:39→08:46)
[2020-02-08] MEDS ORDERED: POTA10TA PO (09:38)
[2020-02-08] MEDS ORDERED: ERGO50006 PO (09:38)
[2020-02-08] MEDS ORDERED: DOXY100C42 PO (09:44)
[2020-02-08] MEDS ORDERED: TIZA4TAB4 PO ×2 (09:44)
[2020-02-08] MEDS ORDERED: KETO5DRO OU (09:44)
[2020-02-08] MEDS ORDERED: DIPH25CA79 PO (09:44)
[2020-02-08] MEDS ORDERED: LORA10TA7 PO (09:44)
[2020-02-08] MEDS ORDERED: FAMO20TA5 PO (09:45)
--- NOTE | 2020-02-08 09:45 | NUR ---
SPOKE WITH PT (HE HAS HIS MEDS WITH HIM) AND WENT THRU THE EXT MED HISTORY TO COMPLETE THE MED REC PT WAS ABLE TO TELL ME WHEN/HOW HE TAKES EACH MEDICATION AND HIS INFORMATION MATCHED THE BOTTLES/EXT MED HISTORY OTC MEDS: EYE ITCH DROPS BENADRYL PRN LORATADINE FAMOTIDINE
[2020-02-08] MEDS: POTASSIUM CL 10MEQ/50ML IVPB 50 ML IV SCH ×4 (11:16→15:20)
[2020-02-08 12:00] VITALS: BP 144/81
--- NOTE | 2020-02-08 14:22 | Progress Note - Surgery ---
Subjective Date Seen by a Provider: Feb 08, 2020 Time Seen by a Provider: 14:20 Subjective/Events-last exam Patient feeling a little better today. Pain slightly improved compared to yesterday. Not having nausea today. Denies fever sweats chills shortness of breath or chest pain. Patient lipase down today. Still awaiting ct results outside facility. Focused Exam Lactate Level 02/07/20 14:45: Lactic Acid Level 0.88 Objective Exam Vital Signs Date Time Temp Pulse Resp B/P (MAP) Pulse Ox O2 Delivery O2 Flow Rate FiO2 02/08/20 12:00 36.5 67 16 144/81 (102) 96 Room Air 02/08/20 08:00 Room Air 02/08/20 08:00 36.4 74 16 134/76 (95) 97 Room Air 02/08/20 04:00 37.2 68 20 128/76 (93) 98 NIV CPAP 02/08/20 00:30 36.4 60 18 131/80 (97) 97 NIV CPAP 02/07/20 22:00 37.3 02/07/20 21:24 37.3 02/07/20 20:30 Room Air 02/07/20 19:35 37.3 70 20 138/73 (94) 94 Room Air 02/07/20 16:00 37.4 73 18 108/59 (75) 94 Room Air 02/07/20 15:35 95 Room Air 02/07/20 14:30 37.0 98 16 132/81 (98) 95 Room Air 02/07/20 14:30 37.0 98 16 132/81 95 Room Air I & O 02/08/20 07:00 Intake Total 2450 ml Output Total 900 ml Balance 1550 ml Capillary Refill : Less Than 3 SecondsLess Than 3 Seconds General Appearance: No Apparent Distress, WD/WN, Obese HEENT: PERRL/EOMI, TMs Normal, Normal ENT Inspection, Pharynx Normal Neck: Full Range of Motion, Normal Inspection, Non Tender, Supple Respiratory: Chest Non Tender, No Accessory Muscle Use, No Respiratory Distress Cardiovascular: Regular Rate, Rhythm, No Edema, Normal Peripheral Pulses Gastrointestinal: soft; No distended, No guarding, No rebound; tenderness (right side, no guarding or rebounding) Extremity: Normal Capillary Refill, Normal Inspection, Normal Range of Motion, Non Tender, No Calf Tenderness, No Pedal Edema Neurologic/Psychiatric: Alert, Oriented x3, No Motor/Sensory Deficits, Normal Mood/Affect Skin: Normal Color, Warm/Dry Lymphatic: No Adenopathy Results Lab Laboratory Tests 02/07/20 14:45: White Blood Count 10.0, Red Blood Count 4.97, Hemoglobin 14.9, Hematocrit 43, M ailin Corpuscular Volume 87, Mean Corpuscular Hemoglobin 30, Mean Corpuscular Hemoglobin Concent 35, Red Cell Distribution Width 14.0, Platelet Count 236, Mean Platelet Volume 9.2, Neutrophils (%) (Auto) 79H, Lymphocytes (%) (Auto) 15, Monocytes (%) (Auto) 6, Eosinophils (%) (Auto) 0, Basophils (%) (Auto) 0, Neutrophils # (Auto) 7.9H, Lymphocytes # (Auto) 1.5, Monocytes # (Auto) 0.6, Eosinophils # (Auto) 0.0, Basophils # (Auto) 0.0, Erythrocyte Sedimentation Rate 3, Sodium Level 142, Potassium Level 2.9L, Chloride Level 101, Carbon Dioxide Level 31, Anion Gap 10, Blood Urea Nitrogen 21H, Creatinine 1.21, Estimat Glomerular Filtration Rate > 60, BUN/Creatinine Ratio 17, Glucose Level 128H, Lactic Acid Level 0.88, Calcium Level 9.4, Corrected Calcium , Total Bilirubin 0.5, Aspartate Amino Transf (AST/SGOT) 17, Alanine Aminotransferase (ALT/SGPT) 21, Alkaline Phosphatase 67, Troponin I < 0.028, C-Reactive Protein High Sensitivity 1.10H, B-Type Natriuretic Peptide 24.6, Total Protein 7.3, Albumin 4.6H, Amylase Level 112, Lipase 235H, Procalcitonin 0.05 02/07/20 14:59: Urine Color YELLOW, Urine Clarity CLEAR, Urine pH 5.5, Urine Specific [place] <=1.005, Urine Protein NEGATIVE, Urine Glucose (UA) 3+H, Urine Ketones TRACEH, Urine Nitrite NEGATIVE, Urine Bilirubin NEGATIVE, Urine Urobilinogen 0.2, Urine Leukocyte Esterase NEGATIVE, Urine RBC (Auto) NEGATIVE, Urine RBC RARE, Urine WBC NONE, Urine Squamous Epithelial Cells RARE, Urine Crystals NONE, Urine Bacteria NEGATIVE, Urine Casts NONE, Urine Mucus NEGATIVE, Urine Culture Indicated NO 02/07/20 20:11: Glucometer 137H 02/08/20 05:00: White Blood Count 7.4, Red Blood Count 4.74, Hemoglobin 14.0, Hematocrit 42, Mean Corpuscular Volume 88, Mean Corpuscular Hemoglobin 30, Mean Corpuscular Hemoglobin Concent 34, Red Cell Distribution Width 14.3, Platelet Count 229, Mean Platelet Volume 9.0, Neutrophils (%) (Auto) 70, Lymphocytes (%) (Auto) 20, Monocytes (%) (Auto) 8, Eosinophils (%) (Auto) 2, Basophils (%) (Auto) 0, Neutrophils # (Auto) 5.2, Lymphocytes # (Auto) 1.5, Monocytes # (Auto) 0.6, Eosinophils # (Auto) 0.1, Basophils # (Auto) 0.0, Sodium Level 141, Potassium Level 3.0L, Chloride Level 103, Carbon Dioxide Level 26, Anion Gap 12, Blood Urea Nitrogen 17, Creatinine 0.82, Estimat Glomerular Filtration Rate > 60, BUN/Creatinine Ratio 21, Glucose Level 129H, Calcium Level 8.5, Corrected Calcium 8.6, Total Bilirubin 0.9, Aspartate Amino Transf (AST/SGOT) 14, Alanine Aminotransferase (ALT/SGPT) 22, Alkaline Phosphatase 62, Total Protein 6.1L, Albumin 3.9, Lipase 145H 02/08/20 11:41: Glucometer 132H Assessment/Plan Assessment/Plan Assessment/Plan right lower quadrant abdominal pain nausea hypokalemia lipase elevated/pancreatitis On clear liquid diet. Abdominal x ray nonspecific bowel gas pattern with some mildly distended fluid-filled small bowel loops, elevated lipase today improved slightly. Still awaiting ct report from outside hospital. Clear liquids repeat labs and see if abdominal exam changes, may need to repeat ct if pain persists. No surgical intervention at this time will follow. Clinical Quality Measures DVT/VTE Risk/Contraindication: Risk Factor Score Per Nursin RFS Level Per Nursing on Admit: 3=High SLOANE HERRON DO Feb 08, 2020 14:22
[2020-02-08] MEDS: ENOXAPARIN 40 MG/0.4 ML (LOVENOX) SYR SC SCH (14:58)
[2020-02-08 15:49] VITALS: BP 146/82
[2020-02-08 20:10] VITALS: BP 148/88
[2020-02-08] MEDS ORDERED: NITROGLYCERIN 0.4 MG SL TABS BTL 25'S SL PRN (20:15)
[2020-02-08] MEDS ORDERED: KETOTIFEN FUMARATE OU PRN (20:15)
[2020-02-08] MEDS ORDERED: diphenhydrAMINE 25 MG TAB (BENADRYL) PO PRN (20:15)
[2020-02-08] MEDS ORDERED: NON-FORMULARY MEDICATION 1 EA EA (Diphenhydramine HCl (Benadryl) 0 MG) PO PRN (20:15)
[2020-02-08] MEDS ORDERED: amLODIPine 5 MG (NORVASC) TAB PO NR (20:15)
[2020-02-08] MEDS ORDERED: NS IV 1000 ML 1,000 ML ONE (20:37)
[2020-02-08] MEDS: MELATONIN 3 MG TABLET PO PRN (20:44)
[2020-02-08] MEDS: doxAzosin 4 MG (CARDURA) TAB PO SCH (20:44)
[2020-02-08] MEDS: HYDROmorphone 2 MG/ML VIAL (DILAUDID) IVP PRN (20:48)
[2020-02-09] VITALS (7 sets, daily range): BP systolic 100–136; BP diastolic 61–77
[2020-02-09 05:24] LABS: BASOPHILS % (AUTO) 0 % (0-10); EOSINOPHILS # (AUTO) 0.1 10^3/uL (0.0-0.3); EOSINOPHILS % (AUTO) 2 % (0-10); HEMATOCRIT 40 % (40-54); HEMOGLOBIN 13.4 G/DL (13.3-17.7); LYMPHOCYTES # (AUTO) 1.4 X 10^3 (1.0-4.0); LYMPHOCYTES % (AUTO) 22 % (12-44); MEAN CORPUSCULAR HEMOGLOBIN 30 PG (25-34); MEAN CORPUSCULAR HGB CONC 34 G/DL (32-36); MEAN CORPUSCULAR VOLUME 88 FL (80-99); MEAN PLATELET VOLUME 9.1 FL (7.4-10.4); MONOCYTES # (AUTO) 0.5 X 10^3 (0.0-1.0); MONOCYTES % (AUTO) 8 % (0-12); NEUTROPHILS # (AUTO) 4.4 X 10^3 (1.8-7.8); NEUTROPHILS % (AUTO) 68 % (42-75); PLATELET COUNT 205 10^3/uL (130-400); RED CELL DISTRIBUTION WIDTH 13.7 % (10.0-14.5); WHITE BLOOD COUNT 6.5 10^3/uL (4.3-11.0)
[2020-02-09 05:46] LABS: ALBUMIN 3.7 GM/DL (3.2-4.5); CHLORIDE 108 MMOL/L (98-107); POTASSIUM 3.5 MMOL/L (3.6-5.0); SODIUM 140 MMOL/L (135-145)
[2020-02-09 05:48] LABS: GLUCOSE 137 MG/DL (70-105)
[2020-02-09 05:49] LABS: CARBON DIOXIDE 23 MMOL/L (21-32); TOTAL PROTEIN 5.7 GM/DL (6.4-8.2)
[2020-02-09 05:50] LABS: BILIRUBIN,TOTAL 0.6 MG/DL (0.1-1.0)
[2020-02-09 05:52] LABS: ALKALINE PHOSPHATASE 60 U/L (40-136); CREATININE SERUM 0.76 MG/DL (0.60-1.30); GFR ESTIMATED > 60
[2020-02-09 05:53] LABS: BUN/CREATININE RATIO 16
[2020-02-09 05:55] LABS: ALANINE AMINOTRANSFERASE 22 U/L (0-55); LIPASE 97 U/L (8-78)
[2020-02-09] MEDS: TORSEMIDE 20 MG (DEMADEX) TAB PO SCH (08:23)
[2020-02-09] MEDS: CLOPIDOGREL 75 MG (PLAVIX) TABLET PO SCH (08:23)
[2020-02-09] MEDS: FLUTICASONE NASAL SPRAY (FLONASE) 16 GM BTL NS SCH (08:23)
[2020-02-09] MEDS: LORATADINE (CLARITIN) 10 MG TAB PO SCH (08:23)
[2020-02-09] MEDS: amLODIPine 10 MG (NORVASC) TAB PO SCH (08:23)
[2020-02-09] MEDS: PANTOPRAZOLE 40 MG (PROTONIX) VIAL IV SCH (08:25)
[2020-02-09] MEDS ORDERED: NON-FORMULARY MEDICATION 1 EA EA (Torsemide 10 MG) PO SCH (09:00)
[2020-02-09] MEDS ORDERED: MAGNESIUM 1 GM/100 ML IVPB 100 ML IV ONE (09:30)
--- NOTE | 2020-02-09 09:33 | Progress Note ---
Subjective Date Seen by a Provider: Feb 09, 2020 Time Seen by a Provider: 09:30 Subjective/Events-last exam Pt doing a lot better but right flank pain persists Ultrasound may be needed to evaluate the right kidney mass, he does have the left kidney mass monitored closely by nephrology on a regular basis at [facility] No nausea, no vomiting Will advance diet and as long as he is able to tolerate that, will plan on going home tomorrow Will ambulate in the halls today Will add in Hydrocodone for pain medication to decrease the need for Dilaudid Potassium still requiring 80 mEQ IV, I will also give a gram of magnesium to help with that absorption Checked meds and labs Restarted most of his home medication, holding Statin therapy to decrease the chance of liver enzyme elevation Review of Systems Gastrointestinal: Abdominal Pain Focused Exam Lactate Level 02/07/20 14:45: Lactic Acid Level 0.88 Objective Exam Last Set of Vital Signs Vital Signs Date Time Temp Pulse Resp B/P (MAP) Pulse Ox O2 Delivery O2 Flow Rate FiO2 02/09/20 08:00 36.2 58 16 132/77 (95) 97 Room Air Capillary Refill : Less Than 3 SecondsLess Than 3 Seconds I&O Intake and Output 02/09/20 00:00 Intake Total 3430 ml Output Total 2650 ml Balance 780 ml Intake Oral 2030 ml IV Total 1400 ml Output Urine Total 2650 ml # Bowel Movements 2 General: Alert, Oriented X3, Cooperative, No Acute Distress Lungs: Clear to Auscultation, Normal Air Movement Heart: Regular Rate, Normal S1, Normal S2, No Murmurs Abdomen: Normal Bowel Sounds, Soft, No Tenderness, No Hepatosplenomegaly, No Masses Neuro: Normal Gait, Normal Speech, Strength at 5/5 X4 Ext, Normal Tone Results Lab Laboratory Tests 02/08/20 11:41: Glucometer 132H 02/08/20 15:51: Glucometer 145H 02/08/20 20:32: Glucometer 122H 02/09/20 05:04: White Blood Count 6.5, Red Blood Count 4.50, Hemoglobin 13.4, Hematocrit 40, Mean Corpuscular Volume 88, Mean Corpuscular Hemoglobin 30, Mean Corpuscular Hemoglobin Concent 34, Red Cell Distribution Width 13.7, Platelet Count 205, Mean Platelet Volume 9.1, Neutrophils (%) (Auto) 68, Lymphocytes (%) (Auto) 22, Monocytes (%) (Auto) 8, Eosinophils (%) (Auto) 2, Basophils (%) (Auto) 0, Neutrophils # (Auto) 4.4, Lymphocytes # (Auto) 1.4, Monocytes # (Auto) 0.5, Eosinophils # (Auto) 0.1, Basophils # (Auto) 0.0, Sodium Level 140, Potassium Level 3.5L, Chloride Level 108H, Carbon Dioxide Level 23, Anion Gap 9, Blood Urea Nitrogen 12, Creatinine 0.76, Estimat Glomerular Filtration Rate > 60, BUN/Creatinine Ratio 16, Glucose Level 137H, Calcium Level 8.0L, Corrected Calcium 8.2L, Total Bilirubin 0.6, Aspartate Amino Transf (AST/SGOT) 14, Alanine Aminotransferase (ALT/SGPT) 22, Alkaline Phosphatase 60, Total Protein 5.7L, Albumin 3.7, Lipase 97H Assessment/Plan Assessment/Plan Assess & Plan/Chief Complaint Assessment: Abdominal Pain recurrent in type now with acute pancreatitis history of Gallbladder removal in a non drinker DM HTN HLP CHELSEA CAD CRI Plan: Appreciate Dr. Nieves Supportive Care IV fluids heplock Pain medication DC tomorrow? Diagnosis/Problems Diagnosis/Problems (1) Pancreatitis (2) Right lower quadrant abdominal pain Status: Acute (3) Radiculopathy Status: Resolved Resolution Date/Time: 10/19/18 @ 10:29 (4) CHELSEA (obstructive sleep apnea) Status: Chronic (5) Obesity Status: Chronic (6) Hypertension Status: Chronic (7) Hyperlipidemia Status: Chronic (8) CAD (coronary artery disease) Status: Chronic (9) Diabetes mellitus Status: Chronic Clinical Quality Measures DVT/VTE Risk/Contraindication: Risk Factor Score Per Nursin RFS Level Per Nursing on Admit: 3=High JANEEN CHAMPION DO Feb 09, 2020 09:33
[2020-02-09] MEDS ORDERED: NS IV 1000 ML 1,000 ML IV SCH (09:45)
[2020-02-09] MEDS ORDERED: HYDROcodone/APAP 10 MG/325 MG (LORTAB) TAB PO PRN (10:15)
[2020-02-09] MEDS: POTASSIUM CL 10MEQ/50ML IVPB 50 ML IV SCH ×7 (10:16→14:07)
[2020-02-09] MEDS: HYDROmorphone 2 MG/ML VIAL (DILAUDID) IVP PRN (10:22)
--- NOTE | 2020-02-09 12:36 | Diagnostic Imaging Report ---
PROCEDURE: US Renal Bilateral. INDICATION: Renal cyst. TECHNIQUE: Multiple Real-time grayscale sonographic images were obtained of the kidneys. CORRELATION: 11/30/2018, CT 03/09/2019. FINDINGS: RIGHT KIDNEY: 13.0 x 7.0 x 5.7 cm. There is normal echotexture of the right renal parenchyma. No definitive calcification or hydronephrosis. The previously identified low-density mass medial interpolar region right kidney on CT imaging is not appreciated on this ultrasound study. LEFT KIDNEY: Enlarged 16.4 x 6.1 x 7.3 cm. There are multiple hypoechoic largely exophytic cystic masses of the left kidney appearing most pronounced at the inferior pole. Largest measures 10.8 x 9.0 x 7.8 cm. Definitive abnormal solid component does not appear to be suggested. The remainder of the renal parenchyma unremarkable. No overt left-sided hydronephrosis. URINARY BLADDER: The partially distended bladder has an unremarkable appearance. Bilateral ureteral jets are present. IMPRESSION: 1. Asymmetrically enlarged left kidney with a large exophytic cyst off the particularly inferior pole left kidney present. No definitive concerning solid component. 2. Unremarkable right kidney. A known low-density mass of the right kidney on CT imaging is not appreciated on this ultrasound study. Dictated by: Dictated on workstation # [id number]
[2020-02-09] MEDS: ENOXAPARIN 40 MG/0.4 ML (LOVENOX) SYR SC SCH (14:11)
[2020-02-09] MEDS ORDERED: lisINopril 20 MG (PRINIVIL) TABLET PO SCH (21:00)
[2020-02-09] MEDS: MELATONIN 3 MG TABLET PO PRN (21:48)
[2020-02-09] MEDS: doxAzosin 4 MG (CARDURA) TAB PO SCH (21:48)
--- NOTE | 2020-02-09 21:53 | Progress Note - Surgery ---
Subjective Date Seen by a Provider: Feb 09, 2020 Time Seen by a Provider: 10:13 Subjective/Events-last exam Patient states his abdominal pain has improved. However his back pain has worsened. Not having any nausea or emesis at this time. Tolerating clears. Lipase improving. Denies fever sweats chills shortness of breath or chest pain. Reviewed report for [facility] from [facility], left known cystic lesions and right renal lesion. Focused Exam Lactate Level 02/07/20 14:45: Lactic Acid Level 0.88 Objective Exam Vital Signs Date Time Temp Pulse Resp B/P (MAP) Pulse Ox O2 Delivery O2 Flow Rate FiO2 02/09/20 20:07 37.6 56 18 124/74 (91) 97 Room Air 02/09/20 15:30 36.6 62 18 128/76 (93) 96 Room Air 02/09/20 11:00 36.2 61 16 136/75 (95) 97 Room Air 02/09/20 08:00 Room Air 02/09/20 08:00 36.2 58 16 132/77 (95) 97 Room Air 02/09/20 04:00 37.6 56 18 117/74 (88) 98 Room Air 02/09/20 00:10 36.2 50 18 100/61 (74) 97 NIV CPAP I & O 02/09/20 07:00 Intake Total 3480 ml Output Total 2350 ml Balance 1130 ml Capillary Refill : Less Than 3 SecondsLess Than 3 Seconds General Appearance: No Apparent Distress, WD/WN, Obese HEENT: PERRL/EOMI, Normal ENT Inspection, Pharynx Normal Neck: Full Range of Motion, Normal Inspection, Non Tender, Supple Respiratory: Chest Non Tender, No Accessory Muscle Use, No Respiratory Distress Cardiovascular: Regular Rate, Rhythm, No Edema, No JVD, Normal Peripheral Pulses Gastrointestinal: soft; No distended, No guarding, No rebound, No tenderness Extremity: Normal Capillary Refill, Normal Inspection, Normal Range of Motion, Non Tender, No Calf Tenderness, No Pedal Edema Neurologic/Psychiatric: Alert, Oriented x3, No Motor/Sensory Deficits, Normal Mood/Affect Skin: Normal Color, Warm/Dry Lymphatic: No Adenopathy Results Lab Laboratory Tests 02/09/20 05:04: White Blood Count 6.5, Red Blood Count 4.50, Hemoglobin 13.4, Hematocrit 40, Mean Corpuscular Volume 88, Mean Corpuscular Hemoglobin 30, Mean Corpuscular Hemoglobin Concent 34, Red Cell Distribution Width 13.7, Platelet Count 205, Mean Platelet Volume 9.1, Neutrophils (%) (Auto) 68, Lymphocytes (%) (Auto) 22, Monocytes (%) (Auto) 8, Eosinophils (%) (Auto) 2, Basophils (%) (Auto) 0, N eutrophils # (Auto) 4.4, Lymphocytes # (Auto) 1.4, Monocytes # (Auto) 0.5, Eosinophils # (Auto) 0.1, Basophils # (Auto) 0.0, Sodium Level 140, Potassium Level 3.5L, Chloride Level 108H, Carbon Dioxide Level 23, Anion Gap 9, Blood Urea Nitrogen 12, Creatinine 0.76, Estimat Glomerular Filtration Rate > 60, BUN/Creatinine Ratio 16, Glucose Level 137H, Calcium Level 8.0L, Corrected Calcium 8.2L, Magnesium Level 2.6H, Total Bilirubin 0.6, Aspartate Amino Transf (AST/SGOT) 14, Alanine Aminotransferase (ALT/SGPT) 22, Alkaline Phosphatase 60, Total Protein 5.7L, Albumin 3.7, Lipase 97H 02/09/20 11:24: Glucometer 142H 02/09/20 15:16: Glucometer 134H 02/09/20 19:55: Glucometer 166H Assessment/Plan Assessment/Plan Assessment/Plan Abdominal Pain right side-improved acute pancreatitis history of Gallbladder removal in a non drinker back pain hyopkalemia improving Will get u/s to evaluate kidneys Lipase trending down and patient abdominal pain improved will advance diet Pain control if needed No surgical intervention will follow. Clinical Quality Measures DVT/VTE Risk/Contraindication: Risk Factor Score Per Nursin RFS Level Per Nursing on Admit: 3=High SLOANE HERRON DO Feb 09, 2020 21:53
[2020-02-10 04:00] VITALS: BP 109/67
[2020-02-10 06:32] LABS: HEMOGLOBIN 14.1 G/DL (13.3-17.7); MEAN PLATELET VOLUME 8.8 FL (7.4-10.4); WHITE BLOOD COUNT 5.6 10^3/uL (4.3-11.0)
[2020-02-10 06:47] LABS: ALBUMIN 3.8 GM/DL (3.2-4.5); CHLORIDE 109 MMOL/L (98-107); POTASSIUM 3.9 MMOL/L (3.6-5.0); SODIUM 141 MMOL/L (135-145)
[2020-02-10 06:48] LABS: CALCIUM 8.3 MG/DL (8.5-10.1)
[2020-02-10 06:49] LABS: GLUCOSE 129 MG/DL (70-105); TOTAL PROTEIN 5.9 GM/DL (6.4-8.2)
[2020-02-10 06:50] LABS: CARBON DIOXIDE 22 MMOL/L (21-32)
[2020-02-10 06:51] LABS: BILIRUBIN,TOTAL 0.5 MG/DL (0.1-1.0)
[2020-02-10 06:53] LABS: ALKALINE PHOSPHATASE 63 U/L (40-136); GFR ESTIMATED > 60
[2020-02-10 06:54] LABS: BUN/CREATININE RATIO 14
[2020-02-10 06:56] LABS: ALANINE AMINOTRANSFERASE 19 U/L (0-55); LIPASE 73 U/L (8-78)
[2020-02-10 08:00] VITALS: BP 144/83
[2020-02-10] MEDS ORDERED: PANTOPRAZOLE 40 MG (PROTONIX) TAB PO SCH (09:00)
[2020-02-10] MEDS ORDERED: SPIRONOLACTONE 100 MG (ALDACTONE) TABLET PO SCH (09:00)
[2020-02-10] MEDS: FLUTICASONE NASAL SPRAY (FLONASE) 16 GM BTL NS SCH (09:12)
[2020-02-10] MEDS: CLOPIDOGREL 75 MG (PLAVIX) TABLET PO SCH (09:13)
[2020-02-10] MEDS: TORSEMIDE 20 MG (DEMADEX) TAB PO SCH (09:13)
[2020-02-10] MEDS: amLODIPine 10 MG (NORVASC) TAB PO SCH (09:13)
[2020-02-10] MEDS: LORATADINE (CLARITIN) 10 MG TAB PO SCH (09:13)
[2020-02-10] MEDS ORDERED: ACHYD1T PO (10:03)
[2020-02-10] MEDS ORDERED: PANT40TA2 PO (10:03)
[2020-02-10] MEDS ORDERED: POTA10TA PO (10:03)
--- NOTE | 2020-02-10 10:05 | Discharge Summary ---
Diagnosis/Chief Complaint Date of Admission Feb 08, 2020 at 07:00 Date of Discharge Discharge Date: Feb 10, 2020 Discharge Diagnosis Assessment: Abdominal Pain recurrent in type now with acute pancreatitis history of Gallbladder removal in a non drinker DM HTN HLP CHELSEA CAD CRI Plan: Appreciate Dr. Nieves Supportive Care IV fluids heplock Pain medication DC today Discharge Summary Discharge Physical Examination Allergies: Coded Allergies: Penicillins (Verified Allergy, Severe, Rash, 02/07/20) diclofenac sodium (Verified Allergy, Mild, DIZZINESS, 02/07/20) methocarbamol (Verified Allergy, Mild, RASH, 02/07/20) Vitals & I&Os Vital Signs Date Time Temp Pulse Resp B/P (MAP) Pulse Ox O2 Delivery O2 Flow Rate FiO2 02/10/20 11:07 36.6 60 18 144/83 96 Room Air General Appearance: Alert, Oriented X3, Cooperative Respiratory: Clear to Auscultation Cardiovascular: Regular Rate Neuro: Normal Gait, Normal Speech, Strength at 5/5 X4 Ext Hospital Course Hospital Course: Pt had an uneventful hospital course after 3 days after directly admitted for abdominal pain of recurrent nature about 10 days with se [place] nausea and dehydration. He was found to have acute pancreatitis. He had had a cholecystectomy before and is a non drinker so Dr. Nieves saw him, managed him conservatively, placed him on supportive IV fluids and no evidence of any infectious source. Pt was placed on pain medication, lipase eventually normalized, severe hypokalemia required aggressive IV supplementation and ove rall he felt very good. Ultrasound was obtained showing some kidney abnormalities. Dr. Ingram manages that so we will get an appointment with him for follow up and I will see him next week for an appointment. I did double up on him for his potassium to twice a day and he will see me next week Labs (last 24 hrs) Laboratory Tests 02/07/20 14:45: White Blood Count 10.0, Red Blood Count 4.97, Hemoglobin 14.9, Hematocrit 43, Mean Corpuscular Volume 87, Mean Corpuscular Hemoglobin 30, Mean Corpuscular Hemoglobin Concent 35, Red Cell Distribution Width 14.0, Platelet Count 236, Mean Platelet Volume 9.2, Neutrophils (%) (Auto) 79H, Lymphocytes (%) (Auto) 15, Monocytes (%) (Auto) 6, Eosinophils (%) (Auto) 0, Basophils (%) (Auto) 0, Neutrophils # (Auto) 7.9H, Lymphocytes # (Auto) 1.5, Monocytes # (Auto) 0.6, Eosinophils # (Auto) 0.0, Basophils # (Auto) 0.0, Erythrocyte Sedimentation Rate 3, Sodium Level 142, Potassium Level 2.9L, Chloride Level 101, Carbon Dioxide Level 31, Anion Gap 10, Blood Urea Nitrogen 21H, Creatinine 1.21, Estimat Glom erular Filtration Rate > 60, BUN/Creatinine Ratio 17, Glucose Level 128H, Lactic Acid Level 0.88, Calcium Level 9.4, Corrected Calcium , Total Bilirubin 0.5, Aspartate Amino Transf (AST/SGOT) 17, Alanine Aminotransferase (ALT/SGPT) 21, Alkaline Phosphatase 67, Troponin I < 0.028, C-Reactive Protein High Sensitivity 1.10H, B-Type Natriuretic Peptide 24.6, Total Protein 7.3, Albumin 4.6H, Amylase Level 112, Lipase 235H, Procalcitonin 0.05 02/07/20 14:59: Urine Color YELLOW, Urine Clarity CLEAR, Urine pH 5.5, Urine Specific [place] <=1.005, Urine Protein NEGATIVE, Urine Glucose (UA) 3+H, Urine Ketones TRACEH, Urine Nitrite NEGATIVE, Urine Bilirubin NEGATIVE, Urine Urobilinogen 0.2, Urine Leukocyte Esterase NEGATIVE, Urine RBC (Auto) NEGATIVE, Urine RBC RARE, Urine WBC NONE, Urine Squamous Epithelial Cells RARE, Urine Crystals NONE, Urine Bacteria NEGATIVE, Urine Casts NONE, Urine Mucus NEGATIVE, Urine Culture Indicated NO 02/07/20 20:11: Glucometer 137H 02/08/20 05:00: White Blood Count 7.4, Red Blood Count 4.74, Hemoglobin 14.0, Hematocrit 42, Mean Corpuscular Volume 88, Mean Corpuscular Hemoglobin 30, Mean Corpuscular Hemoglobin Concent 34, Red Cell Distribution Width 14.3, Platelet Count 229, Mean Platelet Volume 9.0, Neutrophils (%) (Auto) 70, Lymphocytes (%) (Auto) 20, Monocytes (%) (Auto) 8, Eosinophils (%) (Auto) 2, Basophils (%) (Auto) 0, [place] trophils # (Auto) 5.2, Lymphocytes # (Auto) 1.5, Monocytes # (Auto) 0.6, Eosinophils # (Auto) 0.1, Basophils # (Auto) 0.0, Sodium Level 141, Potassium Level 3.0L, Chloride Level 103, Carbon Dioxide Level 26, Anion Gap 12, Blood Urea Nitrogen 17, Creatinine 0.82, Estimat Glomerular Filtration Rate > 60, BUN/Creatinine Ratio 21, Glucose Level 129H, Calcium Level 8.5, Corrected Calcium 8.6, Total Bilirubin 0.9, Aspartate Amino Transf (AST/SGOT) 14, Alanine Aminotransferase (ALT/SGPT) 22, Alkaline Phosphatase 62, Total Protein 6.1L, Albumin 3.9, Lipase 145H 02/08/20 11:41: Glucometer 132H 02/08/20 15:51: Glucometer 145H 02/08/20 20:32: Glucometer 122H 02/09/20 05:04: White Blood Count 6.5, Red Blood Count 4.50, Hemoglobin 13.4, Hematocrit 40, Mean Corpuscular Volume 88, Mean Corpuscular Hemoglobin 30, Mean Corpuscular Hemoglobin Concent 34, Red Cell Distribution Width 13.7, Platelet Count 205, Mean Platelet Volume 9.1, Neutrophils (%) (Auto) 68, Lymphocytes (%) (Auto) 22, Monocytes (%) (Auto) 8, Eosinophils (%) (Auto) 2, Basophils (%) (Auto) 0, Neutrophils # (Auto) 4.4, Lymphocytes # (Auto) 1.4, Monocytes # (Auto) 0.5, Eosinophils # (Auto) 0.1, Basophils # (Auto) 0.0, Sodium Level 140, Potassium Level 3.5L, Chloride Level 108H, Carbon Dioxide Level 23, Anion Gap 9, Blood Urea Nitrogen 12, Creatinine 0.76, Estimat Glomerular Filtration Rate > 60, BUN/Creatinine Ratio 16, Glucose Level 137H, Calcium Level 8.0L, Corrected Calcium 8.2L, Magnesium Level 2.6H, Total Bilirubin 0.6, Aspartate Amino Transf (AST/SGOT) 14, Alanine Aminotransferase (ALT/SGPT) 22, Alkaline Phosphatase 60, Total Protein 5.7L, Albumin 3.7, Lipase 97H 02/09/20 11:24: Glucometer 142H 02/09/20 15:16: Glucometer 134H 02/09/20 19:55: Glucometer 166H 02/10/20 06:03: Glucometer 120H 02/10/20 06:26: White Blood Count 5.6, Red Blood Count 4.68, Hemoglobin 14.1, Hematocrit 41, Mean Corpuscular Volume 87, Mean Corpuscular Hemoglobin 30, Mean Corpuscular Hemoglobin Concent 35, Red Cell Distribution Width 14.0, Platelet Count 217, Mean Platelet Volume 8.8, Sodium Level 141, Potassium Level 3.9, Chloride Level 109H, Carbon Dioxide Level 22, Anion Gap 10, Blood Urea Nitrogen 11, Creatinine 0.80, Estimat Glomerular Filtration Rate > 60, BUN/Creatinine Ratio 14, Glucose Level 129H, Calcium Level 8.3L, Corrected Calcium 8.5, Total Bilirubin 0.5, Aspartate Amino Transf (AST/SGOT) 12, Alanine Aminotransferase (ALT/SGPT) 19, Alkaline Phosphatase 63, Total Protein 5.9L, Albumin 3.8, Lipase 73 Pending Labs Laboratory Tests 02/07/20 14:45: White Blood Count 10.0, Red Blood Count 4.97, Hemoglobin 14.9, Hematocrit 43, Mean Corpuscular Volume 87, Mean Corpuscular Hemoglobin 30, Mean Corpuscular Hemoglobin Concent 35, Red Cell Distribution Width 14.0, Platelet Count 236, Mean Platelet Volume 9.2, Neutrophils (%) (Auto) 79, Lymphocytes (%) (Auto) 15, Monocytes (%) (Auto) 6, Eosinophils (%) (Auto) 0, Basophils (%) (Auto) 0, Neutrophils # (Auto) 7.9, Lymphocytes # (Auto) 1.5, Monocytes # (Auto) 0.6, Eosinophils # (Auto) 0.0, Basophils # (Auto) 0.0, Erythrocyte Sedimentation Rate 3, Sodium Level 142, Potassium Level 2.9, Chloride Level 101, Carbon Dioxide Level 31, Anion Gap 10, Blood Urea Nitrogen 21, Creatinine 1.21, Estimat Glomerular Filtration Rate > 60, BUN/Creatinine Ratio 17, Glucose Level 128, Lactic Acid Level 0.88, Calcium Level 9.4, Corrected Calcium , Total Bilirubin 0.5, Aspartate Amino Transf (AST/SGOT) 17, Alanine Aminotransferase (ALT/SGPT) 21, Alkaline Phosphatase 67, Troponin I < 0.028, C-Reactive Protein High Sensitivity 1.10, B-Type Natriuretic Peptide 24.6, Total Protein 7.3, Albumin 4.6, Amylase Level 112, Lipase 235, Procalcitonin 0.05 02/07/20 14:59: Urine Color YELLOW, Urine Clarity CLEAR, Urine pH 5.5, Urine Specific [place] <=1.005, Urine Protein NEGATIVE, Urine Glucose (UA) 3+, Urine Ketones TRACE, Urine Nitrite NEGATIVE, Urine Bilirubin NEGATIVE, Urine Urobilinogen 0.2, Urine Leukocyte Esterase NEGATIVE, Urine RBC (Auto) NEGATIVE, Urine RBC RARE, Urine WBC NONE, Urine Squamous Epithelial Cells RARE, Urine Crystals NONE, Urine Bacteria NEGATIVE, Urine Casts NONE, Urine Mucus NEGATIVE, Urine Culture Indicated NO 02/07/20 20:11: Glucometer 137 02/08/20 05:00: White Blood Count 7.4, Red Blood Count 4.74, Hemoglobin 14.0, Hematocrit 42, Mean Corpuscular Volume 88, Mean Corpuscular Hemoglobin 30, Mean Corpuscular Hemoglobin Concent 34, Red Cell Distribution Width 14.3, Platelet Count 229, Me an Platelet Volume 9.0, Neutrophils (%) (Auto) 70, Lymphocytes (%) (Auto) 20, Monocytes (%) (Auto) 8, Eosinophils (%) (Auto) 2, Basophils (%) (Auto) 0, Neutrophils # (Auto) 5.2, Lymphocytes # (Auto) 1.5, Monocytes # (Auto) 0.6, Eosinophils # (Auto) 0.1, Basophils # (Auto) 0.0, Sodium Level 141, Potassium Level 3.0, Chloride Level 103, Carbon Dioxide Level 26, Anion Gap 12, Blood Urea Nitrogen 17, Creatinine 0.82, Estimat Glomerular Filtration Rate > 60, BUN/Creatinine Ratio 21, Glucose Level 129, Calcium Level 8.5, Corrected Calcium 8.6, Total Bilirubin 0.9, Aspartate Amino Transf (AST/SGOT) 14, Alanine Aminotransferase (ALT/SGPT) 22, Alkaline Phosphatase 62, Total Protein 6.1, Albumin 3.9, Lipase 145 02/08/20 11:41: Glucometer 132 02/08/20 15:51: Glucometer 145 02/08/20 20:32: Glucometer 122 02/09/20 05:04: White Blood Count 6.5, Red Blood Count 4.50, Hemoglobin 13.4, Hematocrit 40, Mean Corpuscular Volume 88, Mean Corpuscular Hemoglobin 30, Mean Corpuscular Hemoglobin Concent 34, Red Cell Distribution Width 13.7, Platelet Count 205, Mean Platelet Volume 9.1, Neutrophils (%) (Auto) 68, Lymphocytes (%) (Auto) 22, Monocytes (%) (Auto) 8, Eosinophils (%) (Auto) 2, Basophils (%) (Auto) 0, Neutrophils # (Auto) 4.4, Lymphocytes # (Auto) 1.4, Monocytes # (Auto) 0.5, Eosinophils # (Auto) 0.1, Basophils # (Auto) 0.0, Sodium Level 140, Potassium Level 3.5, Chloride Level 108, Carbon Dioxide Level 23, Anion Gap 9, Blood Urea Nitrogen 12, Creatinine 0.76, Estimat Glomerular Filtration Rate > 60, BUN/Creatinine Ratio 16, Glucose Level 137, Calcium Level 8.0, Corrected Calcium 8.2, Magnesium Level 2.6, Total Bilirubin 0.6, Aspartate Amino Transf (AST/SGOT) 14, Alanine Aminotransferase (ALT/SGPT) 22, Alkaline Phosphatase 60, Total Protein 5.7, Albumin 3.7, Lipase 97 02/09/20 11:24: Glucometer 142 02/09/20 15:16: Glucometer 134 02/09/20 19:55: Glucometer 166 02/10/20 06:03: Glucometer 120 02/10/20 06:26: White Blood Count 5.6, Red Blood Count 4.68, Hemoglobin 14.1, Hematocrit 41, Mean Corpuscular Volume 87, Mean Corpuscular Hemoglobin 30, Mean Corpuscular Hemoglobin Concent 35, Red Cell Distribution Width 14.0, Platelet Count 217, Mean Platelet Volume 8.8, Sodium Level 141, Potassium Level 3.9, Chloride Level 109, Carbon Dioxide Level 22, Anion Gap 10, Blood Urea Nitrogen 11, Creatinine 0.80, Estimat Glomerular Filtration Rate > 60, BUN/Creatinine Ratio 14, Glucose Level 129, Calcium Level 8.3, Corrected Calcium 8.5, Total Bilirubin 0.5, Aspartate Amino Transf (AST/SGOT) 12, Alanine Aminotransferase (ALT/SGPT) 19, Alkaline Phosphatase 63, Total Protein 5.9, Albumin 3.8, Lipase 73 Discharge Home Medications: Active Scripts Active Protonix (Pantoprazole Sodium) 40 Mg Tablet.dr 40 Mg PO DAILY HYDROcodone/APAP 10/325 TABLET (Acetaminophen/Hydrocodone Bitart) 1 Ea Tab 1 Ea PO Q4H PRN K-Tab ER (Potassium Chloride) 10 Meq Tablet.er 10 Meq PO BID TAKES AFTER BREAKFAST Reported Famotidine 20 Mg Tablet 20 Mg PO DAILY Loratadine 10 Mg Tablet 10 Mg PO DAILY Benadryl (Diphenhydramine HCl) 25 Mg Capsule 25-50 Mg PO Q8H PRN Itchy Eye (Ketotifen Fumarate) 5 Ml Drops 2 Drops OU PRN PRN Tizanidine HCl 4 Mg Tablet 8 Mg PO HS TAKES 2 (4MG) TABS Tizanidine HCl 4 Mg Tablet 2-4 Mg PO 0700,1300 PRN TAKES TO 1 TAB IN THE MORNING AND AFTERNOON NEEDED Vitamin D2 (Ergocalciferol (Vitamin D2)) 1,250 Mcg Capsule 1,250 Mcg PO FRI, Jardiance (Empagliflozin) 25 Mg Tablet 25 Mg PO DAILY Plavix (Clopidogrel Bisulfate) 75 Mg Tablet 75 Mg PO HS Torsemide 10 Mg Tablet 10 Mg PO DAILY Lisinopril 20 Mg Tablet 20 Mg PO HS Spironolactone 50 Mg Tablet 50 Mg PO DAILY Levemir Flextouch (Insulin Detemir) 100 Unit/1 Ml Insuln.pen 80 Units SC HS Novolog Flexpen (Insulin Aspart) 300 Units/3 Ml Solution Units SQ TIDPC USES PER SLIDING SCALE Epipen (Epinephrine) 0.3 Mg/0.3 Ml Auto.injct 0.3 Mg IJ UD PRN Fluticasone Propionate 16 Gm [place].susp 2 Sprays NS DAILY Amlodipine Besylate 10 Mg Tablet 10 Mg PO DAILY Doxazosin Mesylate 4 Mg Tablet 4 Mg PO HS Atorvastatin Calcium 40 Mg Tablet 40 Mg PO HS Nitroglycerin 0.4 Mg Tab.subl 0.4 Mg SL UD PRN Instructions to patient/family Please see electronic discharge instructions given to patient. Diagnosis/Problems Diagnosis/Problems (1) Pancreatitis (2) Right lower quadrant abdominal pain Status: Acute (3) Radiculopathy Status: Resolved Resolution Date/Time: 10/19/18 @ 10:29 (4) CHELSEA (obstructive sleep apnea) Status: Chronic (5) Obesity Status: Chronic (6) Hypertension Status: Chronic (7) Hyperlipidemia Status: Chronic (8) CAD (coronary artery disease) Status: Chronic (9) Diabetes mellitus Status: Chronic Clinical Quality Measures DVT/VTE Risk/Contraindication: Risk Factor Score Per Nursin RFS Level Per Nursing on Admit: 3=High JANEEN CHAMPION DO Feb 10, 2020 10:05
[2020-02-10 11:07] VITALS: BP 144/83
== END 2020-02-10 11:21 | disposition home or self-care (01) | DRG 439 ==
LOC: 4TH 14:14 → OBSVTOIN 02-08 07:00 → 4TH 02-08 11:51
PROVIDERS: ADMIT Internal Medicine; ATTEND Internal Medicine
DX: K85.90 Acute pancreatitis without necrosis or infection, unspecified (principal); Q61.3 Polycystic kidney, unspecified; I12.9 Hypertensive chronic kidney disease with stage 1 through stage 4 chronic kidney disease, or unspecified chronic kidney disease; N18.9 Chronic kidney disease, unspecified; E87.6 Hypokalemia; E11.40 Type 2 diabetes mellitus with diabetic neuropathy, unspecified; I25.119 Atherosclerotic heart disease of native coronary artery with unspecified angina pectoris; E78.00 Pure hypercholesterolemia, unspecified; G47.33 Obstructive sleep apnea (adult) (pediatric); K21.9 Gastro-esophageal reflux disease without esophagitis; K59.09 Other constipation; M19.91 Primary osteoarthritis, unspecified site; M54.9 Dorsalgia, unspecified; Z95.5 Presence of coronary angioplasty implant and graft; Z79.4 Long term (current) use of insulin; N28.89 Other specified disorders of kidney and ureter; Z90.49 Acquired absence of other specified parts of digestive tract; Z98.1 Arthrodesis status; Z88.0 Allergy status to penicillin; Z88.8 Allergy status to other drugs, medicaments and biological substances; Z79.2 Long term (current) use of antibiotics; Z20.828 Contact with and (suspected) exposure to other viral communicable diseases; Z68.35 Body mass index [BMI] 35.0-35.9, adult
CPT/HCPCS: 36415; 74022; 76770; 80053; 81000; 82150; 82962; 83605; 83690; 83735; 83880; 84145; 84484; 85025; 85027; 85652; 86141; 93005; 99211; G0378

== ENCOUNTER → 2020-02-15 | Outpatient (CLI) | payer BC ==
[~2020-02-15] MED LIST changes: +DIPH25CA79 PO; +DOXY100C42 PO; +KETO5DRO OU; +PANT40TA2 PO; +POTA10TA PO
[2020-02-15 12:16] LABS: BASOPHILS % (AUTO) 0 % (0-10); EOSINOPHILS # (AUTO) 0.1 10^3/uL (0.0-0.3); EOSINOPHILS % (AUTO) 1 % (0-10); HEMATOCRIT 45 % (40-54); HEMOGLOBIN 15.3 G/DL (13.3-17.7); LYMPHOCYTES # (AUTO) 1.6 X 10^3 (1.0-4.0); LYMPHOCYTES % (AUTO) 21 % (12-44); MEAN CORPUSCULAR HEMOGLOBIN 30 PG (25-34); MEAN CORPUSCULAR HGB CONC 34 G/DL (32-36); MEAN CORPUSCULAR VOLUME 87 FL (80-99); MEAN PLATELET VOLUME 9.1 FL (7.4-10.4); MONOCYTES # (AUTO) 0.6 X 10^3 (0.0-1.0); MONOCYTES % (AUTO) 8 % (0-12); NEUTROPHILS # (AUTO) 5.3 X 10^3 (1.8-7.8); NEUTROPHILS % (AUTO) 70 % (42-75); PLATELET COUNT 276 10^3/uL (130-400); RED CELL DISTRIBUTION WIDTH 14.4 % (10.0-14.5); WHITE BLOOD COUNT 7.6 10^3/uL (4.3-11.0)
[2020-02-15 12:39] LABS: ALBUMIN 4.8 GM/DL (3.2-4.5); CHLORIDE 101 MMOL/L (98-107)
[2020-02-15 12:40] LABS: POTASSIUM 3.5 MMOL/L (3.6-5.0); SODIUM 141 MMOL/L (135-145)
[2020-02-15 12:41] LABS: CALCIUM 9.8 MG/DL (8.5-10.1)
[2020-02-15 12:42] LABS: GLUCOSE 111 MG/DL (70-105); TOTAL PROTEIN 7.6 GM/DL (6.4-8.2)
[2020-02-15 12:43] LABS: CARBON DIOXIDE 27 MMOL/L (21-32)
[2020-02-15 12:44] LABS: BILIRUBIN,TOTAL 0.5 MG/DL (0.1-1.0)
[2020-02-15 12:45] LABS: ALKALINE PHOSPHATASE 72 U/L (40-136); GFR ESTIMATED > 60
[2020-02-15 12:46] LABS: BUN/CREATININE RATIO 20
[2020-02-15 12:48] LABS: ALANINE AMINOTRANSFERASE 53 U/L (0-55)
[2020-02-15 12:49] LABS: LIPASE 59 U/L (8-78)
== END ==
LOC: LAB 11:42
PROVIDERS: ATTEND Internal Medicine
DX: K85.90 Acute pancreatitis without necrosis or infection, unspecified (principal); E87.6 Hypokalemia; N17.9 Acute kidney failure, unspecified
CPT/HCPCS: 36415; 80053; 83690; 85025

== ENCOUNTER → 2020-04-11 | Outpatient (CLI) | payer BC ==
[2020-04-11 09:19] LABS: ALANINE AMINOTRANSFERASE 20 U/L (0-55); ALBUMIN 4.6 GM/DL (3.2-4.5); ALKALINE PHOSPHATASE 69 U/L (40-136); BILIRUBIN,TOTAL 0.6 MG/DL (0.1-1.0); BUN/CREATININE RATIO 18; CALCIUM 9.4 MG/DL (8.5-10.1); CARBON DIOXIDE 20 MMOL/L (21-32); CHLORIDE 105 MMOL/L (98-107); CHOLESTEROL 104 MG/DL (< 200); CREATININE SERUM 0.99 MG/DL (0.60-1.30); GFR ESTIMATED > 60; GLUCOSE 160 MG/DL (70-105); POTASSIUM 4.6 MMOL/L (3.6-5.0); SODIUM 138 MMOL/L (135-145); TOTAL PROTEIN 7.3 GM/DL (6.4-8.2); TRIGLYCERIDES 47 MG/DL (<150)
== END ==
LOC: LAB 08:42
PROVIDERS: ATTEND Internal Medicine
DX: Z13.6 Encounter for screening for cardiovascular disorders (principal); E11.65 Type 2 diabetes mellitus with hyperglycemia; I10 Essential (primary) hypertension
CPT/HCPCS: 36415; 80053; 82043; 82465; 83036; 84478

== ENCOUNTER 2020-10-17 15:18 | Emergency (ER) | payer BC ==
[~2020-10-17] VITALS: Ht 177.8 cm; Wt 117.7 kg
[~2020-10-17 15:18] MED LIST changes: +AMLO-251 PO; -AMLO10TA7 PO; +ASPI-1238 PO; -ASPI-983 PO; -CETI10TA21 PO; +CETI10TA49 PO; -LISI-552 PO; -LISI10TA2 PO; +LISI10TA25 PO; +LISI20TA26 PO; -MONT10TA26 PO; +MONT10TA32 PO
[2020-10-17 16:18] LABS: BASOPHILS % (AUTO) 0 % (0-10); EOSINOPHILS # (AUTO) 0.1 10^3/uL (0.0-0.3); EOSINOPHILS % (AUTO) 1 % (0-10); HEMATOCRIT 42 % (40-54); LYMPHOCYTES # (AUTO) 1.5 10^3/uL (1.0-4.0); LYMPHOCYTES % (AUTO) 24 % (12-44); MEAN CORPUSCULAR HEMOGLOBIN 30 pg (25-34); MEAN CORPUSCULAR HGB CONC 34 g/dL (32-36); MEAN CORPUSCULAR VOLUME 88 fL (80-99); MEAN PLATELET VOLUME 8.9 fL (9.0-12.2); MONOCYTES # (AUTO) 0.5 10^3/uL (0.0-1.0); MONOCYTES % (AUTO) 8 % (0-12); NEUTROPHILS # (AUTO) 4.2 10^3/uL (1.8-7.8); NEUTROPHILS % (AUTO) 66 % (42-75); PLATELET COUNT 242 10^3/uL (130-400); WHITE BLOOD COUNT 6.3 10^3/uL (4.3-11.0)
[2020-10-17 16:25] LABS: BILIRUBIN,URINE NEGATIVE (NEGATIVE); CLARITY,URINE CLEAR; COLOR,URINE YELLOW; GLUCOSE, URINE (UA) NEGATIVE (NEGATIVE); KETONES,URINE NEGATIVE (NEGATIVE); LEUKOCYTE ESTERASE ,URINE NEGATIVE (NEGATIVE); NITRITE,URINE NEGATIVE (NEGATIVE); PH,URINE 5.5 (5-9); PROTEIN,URINE NEGATIVE (NEGATIVE)
[2020-10-17 16:32] LABS: BACTERIA,URINE NEGATIVE /HPF; SQUAMOUS EPITHELIAL CELL,UR 0-2 /HPF; WBC,URINE 0-2 /HPF
--- NOTE | 2020-10-17 16:34 | ED Abdominal Pain ---
General Chief Complaint: Abdominal/GI Problems Stated Complaint: ABD PAIN / BLOATING Nursing Triage Note: [facility] WAS IN HOSPITAL IN JANUARY FOR. FRIDAY HAVING ABD PAIN AND BLOATING. Sepsis Screen: No Definite Risk Source of Information: Patient Exam Limitations: No Limitations (JORDAN GRANADOS APRN) History of Present Illness Date Seen by Provider: Oct 17, 2020 Time Seen by Provider: 16:33 Initial Comments To ER with concerns of pancreatitis. He has a history of periumbilical upper abdominal pain in January. He had a recurrence of this abdominal pain nausea and abdominal distention starting about 48 hours ago. Timing/Duration: 2-3 Days Severity/Quality: Moderate, Severe Location: Epigastric Radiation: No Radiation Activities at Onset: None Associated Symptoms: Denies Symptoms (JORDAN GRANADOS APRN) Allergies and Home Medications Allergies Coded Allergies: Penicillins (Verified Allergy, Severe, Rash, 02/07/20) diclofenac sodium (Verified Allergy, Mild, DIZZINESS, 02/07/20) methocarbamol (Verified Allergy, Mild, RASH, 02/07/20) Home Medications Amlodipine Besylate 10 Mg Tablet, 10 MG PO DAILY, (Reported) Atorvastatin Calcium 40 Mg Tablet, 40 MG PO HS, (Reported) Clopidogrel Bisulfate 75 Mg Tablet, 75 MG PO HS, (Reported) Diphenhydramine HCl 25 Mg Capsule, 25-50 MG PO Q8H PRN for ALLERGY SYMPTOMS, (Reported) Doxazosin Mesylate 4 Mg Tablet, 4 MG PO HS, (Reported) Empagliflozin 25 Mg Tablet, 25 MG PO DAILY, (Reported) Epinephrine 0.3 Mg/0.3 Ml Auto.injct, 0.3 MG IJ UD PRN for ALLERGIC REACTION, (Reported) Ergocalciferol (Vitamin D2) 1,250 Mcg Capsule, 1,250 MCG PO FRI,, (Reported) Famotidine 20 Mg Tablet, 20 MG PO DAILY, (Reported) Fluticasone Propionate 16 Gm [place].susp, 2 SPRAYS NS DAILY, (Reported) Hydrocodone Bit/Acetaminophen 1 Ea Tab, 1 EA PO Q4H PRN for PAIN-MODERATE (5-7) Prescribed by: JANEEN CHAMPION on 02/10/20 1004 Insulin Aspart 300 Units/3 Ml Solution, UNITS SQ TIDPC, (Reported) USES PER SLIDING SCALE Insulin Detemir 100 Unit/1 Ml Insuln.pen, 80 UNITS SC HS, (Reported) Ketotifen Fumarate 5 Ml Drops, 2 DROPS OU PRN PRN for EYE ITCH, (Reported) Lisinopril 20 Mg Tablet, 20 MG PO HS, (Reported) Loratadine 10 Mg Tablet, 10 MG PO DAILY, (Reported) Nitroglycerin 0.4 Mg Tab.subl, 0.4 MG SL UD PRN for CHEST PAIN, (Reported) Pantoprazole Sodium 40 Mg Tablet.dr, 40 MG PO DAILY Prescribed by: JANEEN CHAMPION on 02/10/201002 Potassium Chloride 10 Meq Tablet.er, 10 MEQ PO BID TAKES AFTER BREAKFAST Prescribed by: JANEEN CHAMPION on 02/10/201002 Spironolactone 50 Mg Tablet, 50 MG PO DAILY, (Reported) Tizanidine HCl 4 Mg Tablet, 2-4 MG PO 0700,1300 PRN for MUSCLE SPASMS, (Reported) TAKES TO 1 TAB IN THE MORNING AND AFTERNOON NEEDED Tizanidine HCl 4 Mg Tablet, 8 MG PO HS, (Reported) TAKES 2 (4MG) TABS Torsemide 10 Mg Tablet, 10 MG PO DAILY, (Reported) Patient Home Medication List Home Medication List Reviewed: Yes (JORDAN GRANADOS APRN) Review of Systems Review of Systems Constitutional: see HPI EENTM: No Symptoms Reported Respiratory: No Symptoms Reported Cardiovascular: No Symptoms Reported Gastrointestinal: See HPI, Abdominal Pain, Nausea Genitourinary: No Symptoms Reported Musculoskeletal: no symptoms reported Skin: no symptoms reported Psychiatric/Neurological: No Symptoms Reported Endocrine: No Symptoms Reported Hematologic/Lymphatic: No Symptoms Reported (JORDAN GRANADOS APRN) Constitutional: No chills, No fever Respiratory: Denies Cough, Denies Shortness of Air Cardiovascular: Denies Chest Pain Musculoskeletal: no symptoms reported Skin: no symptoms reported (OMAR CHILDERS APRN) Past Wsproow-Vyfimu-Umcdrj Hx Patient Social History Alcohol Use: Past History Number of Drinks Today: AA Alcohol Beverage of Choice: Beer Smoking Status: Former Smoker Type Used: Cigarettes 2nd Hand Smoke Exposure: No Recent Infectious Disease Expo: No Recent Hopitalizations: No (JORDAN GRANADOS APRN) Immunizations Up To Date Tetanus Booster (TDap): Unknown PED Vaccines UTD: No Date of Pneumonia Vaccine: Jun 08, 2017 Date of Influenza Vaccine: May 25, 2018 (JORDAN GRANADOS APRN) Seasonal Allergies Seasonal Allergies: No (JORDAN GRANADOS APRN) Past Medical History Surgeries: Yes (cervical disc fusion, left shoulder surgery X2, CATARACTS) Coronary Stent, Gallbladder, Orthopedic, Tonsillectomy, Vasectomy Respiratory: Yes Sleep Apnea Currently Using CPAP: Yes (at home) Currently Using BIPAP: No Cardiac: Yes (STENT-2017) Angina, Coronary Artery Disease, High Cholesterol, Hypertension Neurological: No Neuropathy Sexually Transmitted Disease: No HIV/AIDS: No Genitourinary: No Renal Failure, Polycystic Kidney Disease Gastrointestinal: Yes Gastroesophageal Reflux, Chronic Constipation, Esophageal Varices Musculoskeletal: Yes Degenerate Disk Disease, Arthritis, Chronic Back Pain Endocrine: Yes Diabetes, Insulin dep HEENT: Yes (GLASSES) Cataract Loss of Vision: Bilateral Hearing Impairment: Denies Cancer: No Did You Recieve Any Treatments: No Psychosocial: No Integumentary: No Blood Disorders: No Adverse Reaction/Blood Tranf: No (N/A) (JORDAN GRANADOS APRN) Family Medical History Asthma 19 FATHER, Onset:Unknown Colon cancer maternal grandmother, Onset:Unknown Dementia 19 FATHER, Onset:60 years & older FH: congestive heart failure maternal grandfather, Onset:Unknown FHx: colon cancer Myocardial infarction 19 MOTHER, Onset:60 years & older Diabetes (JORDAN GRANADOS APRN) Physical Exam Vital Signs Vital Signs - First Documented 10/17/20 15:59 Temp 36.4 Pulse 63 Resp 18 B/P (MAP) 181/101 (127) Pulse Ox 97 O2 Delivery Room Air (OMAR CHILDERS APRN) Vital Signs Capillary Refill : Less Than 3 Seconds (JORDAN GRANADOS APRN) Height/Weight/BMI Height: 5'10.00" Weight: 249lbs. 0.0oz. [id number]; 37.00 BMI Method:Stated General Appearance: WD/WN, no apparent distress Neck: non-tender, full range of motion Respiratory: no respiratory distress, no accessory muscle use Cardiovascular: regular rate, rhythm, no murmur Gastrointestinal: normal bowel sounds, soft, tenderness Neurologic/Psychiatric: alert, normal mood/affect, oriented x 3 Skin: normal color, warm/dry (JORDAN GRANADOS APRN) Focused Exam Respiratory: Lungs Clear, Normal Breath Sounds, No Accessory Muscle Use Cardiovascular: Regular Rate, Rhythm, No Gallop, Normal Peripheral Pulses Skin: normal color, warm/dry (OMAR CHILDERS APRN) Progress/Results/Core Measures Results/Orders Lab Results Laboratory Tests Test 10/17/20 16:10 10/17/20 16:19 Range/Units White Blood Count 6.3 4.3-11.0 10^3/uL Red Blood Count 4.74 4.30-5.52 10^6/uL Hemoglobin 14.0 13.3-17.7 g/dL Hematocrit 42 40-54 % Mean Corpuscular Volume 88 80-99 fL Mean Corpuscular Hemoglobin 30 25-34 pg Mean Corpuscular Hemoglobin Concent 34 32-36 g/dL Red Cell Distribution Width 13.9 10.0-14.5 % Platelet Count 242 130-400 10^3/uL Mean Platelet Volume 8.9 L 9.0-12.2 fL Immature Granulocyte % (Auto) 1 % Neutrophils (%) (Auto) 66 42-75 % Lymphocytes (%) (Auto) 24 12-44 % Monocytes (%) (Auto) 8 0-12 % Eosinophils (%) (Auto) 1 0-10 % Basophils (%) (Auto) 0 0-10 % Neutrophils # (Auto) 4.2 1.8-7.8 10^3/uL Lymphocytes # (Auto) 1.5 1.0-4.0 10^3/uL Monocytes # (Auto) 0.5 0.0-1.0 10^3/uL Eosinophils # (Auto) 0.1 0.0-0.3 10^3/uL Basophils # (Auto) 0.0 0.0-0.1 10^3/uL Immature Granulocyte # (Auto) 0.0 0.0-0.1 10^3/uL Sodium Level 140 135-145 MMOL/L Potassium Level 3.8 3.6-5.0 MMOL/L Chloride Level 107 98-107 MMOL/L Carbon Dioxide Level 23 21-32 MMOL/L Anion Gap 10 5-14 MMOL/L Blood Urea Nitrogen 13 7-18 MG/DL Creatinine 0.88 0.60-1.30 MG/DL Estimat Glomerular Filtration Rate > 60 BUN/Creatinine Ratio 15 Glucose Level 104 70-105 MG/DL Calcium Level 8.8 8.5-10.1 MG/DL Corrected Calcium 8.5-10.1 MG/DL Total Bilirubin 0.7 0.1-1.0 MG/DL Aspartate Amino Transf (AST/SGOT) 14 5-34 U/L Alanine Aminotransferase (ALT/SGPT) 26 0-55 U/L Alkaline Phosphatase 63 40-136 U/L C-Reactive Protein High Sensitivity 0.17 0.00-0.50 MG/DL Total Protein 7.0 6.4-8.2 GM/DL Albumin 4.6 H 3.2-4.5 GM/DL Lipase 28 8-78 U/L Urine Color YELLOW Urine Clarity CLEAR Urine pH 5.5 5-9 Urine Specific [place] 1.020 1.016-1.022 Urine Protein NEGATIVE NEGATIVE Urine Glucose (UA) NEGATIVE NEGATIVE Urine Ketones NEGATIVE NEGATIVE Urine Nitrite NEGATIVE NEGATIVE Urine Bilirubin NEGATIVE NEGATIVE Urine Urobilinogen 0.2 < = 1.0 MG/DL Urine Leukocyte Esterase NEGATIVE NEGATIVE Urine RBC (Auto) NEGATIVE NEGATIVE Urine RBC NONE /HPF Urine WBC 0-2 /HPF Urine Squamous Epithelial Cells 0-2 /HPF Urine Crystals NONE /LPF Urine Bacteria NEGATIVE /HPF Urine Casts NONE /LPF Urine Mucus LARGE H /LPF Urine Culture Indicated NO (OMAR CHILDERS APRN) Medications Given in ED (OMAR CHILDERS APRN) Vital Signs/I&O 10/17/20 10/17/20 15:59 18:22 Temp 36.4 Pulse 63 64 Resp 18 18 B/P (MAP) 181/101 (127) 170/100 Pulse Ox 97 97 O2 Delivery Room Air (OMAR CHILDERS APRN) Blood Pressure Mean: 127 Progress Progress Note : Progress Note Care assumed from Jordan Granados APRN. Patient states that symptoms are same as prior episodes of pancreatitis. Reviewed labs, and lipase noted to be within normal limits and otherwise unremarkable. CT abdomen pelvis shows no acute or chronic inflammation of the pancreas, and no other acute pathology. Has history of renal cyst and he is being closely monitored. States that pain is still present, however since he drove himself to ER, I am unable to give opioid analgesics. He expressed understanding. States he has a sensitivity to NSAIDs so he declined Toradol as well. Discussed treating this as a sub acute pancreatitis with ice chips and clear liquids until pain subsided and to continue his home hydrocodone and Zofran. He is agreeable with this plan and will return if his symptoms worsen. (OMAR CHILDERS APRN) Departure Impression Primary Impression: Abdominal pain Additional Impression: Chronic pancreatitis Disposition: 20 Condition: Improved Departure-Patient Inst. Decision time for Depature: 17:59 (OMAR CHILDERS APRN) Referrals: JANEEN CHAMPION DO (PCP/Family) Primary Care Physician Patient Instructions: Pancreatitis Add. Discharge Instructions: Plan: 1. Follow up with your primary care provider this week. 2. Ice chips and water today and clear liquids until pain and nausea subside. 3. Use home pain medication and nausea pills as directed. 4. Return to ER for any new or worsening symptoms. All discharge instructions reviewed with patient and/or family. Voiced understanding. JORDAN GRANADOS APRN Oct 17, 2020 16:34 OMAR CHILDERS APRN Oct 17, 2020 18:07
[2020-10-17 16:42] LABS: ALBUMIN 4.6 GM/DL (3.2-4.5); CHLORIDE 107 MMOL/L (98-107); POTASSIUM 3.8 MMOL/L (3.6-5.0); SODIUM 140 MMOL/L (135-145)
[2020-10-17 16:43] LABS: CALCIUM 8.8 MG/DL (8.5-10.1)
[2020-10-17 16:45] LABS: GLUCOSE 104 MG/DL (70-105)
[2020-10-17] MEDS ORDERED: fentaNYL INJECTION 100 MCG/2 ML AMP IVP PRN (16:45)
[2020-10-17] MEDS ORDERED: LACTATED RINGERS 1,000 ML IV SCH (16:45)
[2020-10-17 16:46] LABS: CARBON DIOXIDE 23 MMOL/L (21-32)
[2020-10-17 16:47] LABS: BILIRUBIN,TOTAL 0.7 MG/DL (0.1-1.0)
[2020-10-17 16:48] LABS: ALKALINE PHOSPHATASE 63 U/L (40-136); CREATININE SERUM 0.88 MG/DL (0.60-1.30); GFR ESTIMATED > 60
[2020-10-17 16:50] LABS: BUN/CREATININE RATIO 15
[2020-10-17 16:51] LABS: ALANINE AMINOTRANSFERASE 26 U/L (0-55)
[2020-10-17 16:52] LABS: LIPASE 28 U/L (8-78)
[2020-10-17] MEDS ORDERED: NS 100 ML (IVPB) BAG IV ONE (17:45)
[2020-10-17] MEDS ORDERED: HOLD METFORMIN - RECEIVED CONTRAST 20 ML VIAL IV SCH (17:45)
[2020-10-17] MEDS ORDERED: IOHEXOL 350 MG/ML 100 ML (OMNIPAQUE 350) VIAL IV ONE (17:45)
[2020-10-17] MEDS ORDERED: CATHETER FLUSH 10 ML SYR IV PRN (17:45)
--- NOTE | 2020-10-17 17:48 | Diagnostic Imaging Report ---
PROCEDURE: CT abdomen and pelvis with contrast. TECHNIQUE: Multiple contiguous axial images were obtained through the abdomen and pelvis after administration of intravenous contrast. Auto Exposure Controls were utilized during the CT exam to meet ALARA standards for radiation dose reduction. All CT scans use one or more of the following dose optimizing techniques: automated exposure control, MA and/or KvP adjustment based on patient size and exam type or iterative reconstruction. INDICATION: Right-sided abdominal pain radiating to the back. CORRELATION is made with prior CT from 03/09/2019. The lung bases are clear. There is mild generalized low density throughout the liver consistent with hepatic steatosis. No discrete liver mass is identified. The gallbladder is surgically absent. There is no biliary ductal dilatation. Pancreas and spleen are unremarkable. No adrenal mass is identified. A cortical low-attenuation lesion right kidney measures 2.2 cm compared with 1.7 cm on prior. There are numerous low-attenuation lesions involving the left kidney, the largest lower pole medial measuring 11.1 cm compared with 9.6 cm. Aorta is non-aneurysmal. No central retroperitoneal or mesenteric lymphadenopathy is seen. Small and large bowel loops are normal caliber. There is no obstruction. No free fluid or fluid collection is seen. The bladder and prostate are unremarkable. There is no pelvic lymphadenopathy. The bony structures are nonacute. IMPRESSION: 1. No acute feature in the abdomen or pelvis is identified. 2. Hepatic steatosis. 3. Slight increase in size of renal cysts since the prior exam from 03/09/2019. Dictated by: Dictated on workstation # [id number]
[2020-10-17 18:22] VITALS: BP 170/100
== END 2020-10-17 18:21 | disposition home or self-care (01) ==
LOC: EDUNIT# 15:18 → ER 15:20
DX: K86.1 Other chronic pancreatitis (principal); I25.10 Atherosclerotic heart disease of native coronary artery without angina pectoris; E78.00 Pure hypercholesterolemia, unspecified; I10 Essential (primary) hypertension; K21.9 Gastro-esophageal reflux disease without esophagitis; G89.29 Other chronic pain; M54.9 Dorsalgia, unspecified; E11.9 Type 2 diabetes mellitus without complications; Z88.8 Allergy status to other drugs, medicaments and biological substances; Z88.0 Allergy status to penicillin; Z87.891 Personal history of nicotine dependence; Z95.5 Presence of coronary angioplasty implant and graft; Z80.0 Family history of malignant neoplasm of digestive organs; Z82.49 Family history of ischemic heart disease and other diseases of the circulatory system; Z83.3 Family history of diabetes mellitus; Z79.891 Long term (current) use of opiate analgesic; Z79.4 Long term (current) use of insulin
CPT/HCPCS: 36415; 74177; 80053; 81000; 83690; 85025; 86141

== ENCOUNTER → 2021-05-01 | Outpatient (CLI) | payer BC ==
[~2021-05-01] MED LIST changes: +CATHETER FLUSH 10 ML SYR IV PRN; +DOXY-311 PO; -DOXY100C42 PO; +ERGO1250 PO; -OMEP40CA27 PO; +OMEP40CA6 PO; +REGADENOSON 0.4 MG/5 ML SYR (LEXISCAN) IV ONE
[2021-05-01 09:13] VITALS: BP 155/88
--- NOTE | 2021-05-01 12:45 | STRESS TEST ---
DATE OF SERVICE: 05/01/2021 RESTING AND POST REGADENOSON TECHNETIUM-99M TETROFOSMIN SPECT CT IMAGING ORDERING PHYSICIAN: Dr. Deleon. PRIMARY PHYSICIAN: Dr. Cruz. CLINICAL DIAGNOSIS: Coronary artery disease. Baseline images were carried out after injection of 10.22 mCi of technetium-99m Tetrofosmin. This was followed by 0.4 mg of Regadenoson and 31.7 mCi of technetium-99m Tetrofosmin for stress imaging. The electrocardiogram showed sinus rhythm at baseline. It did not change significantly with the Regadenoson infusion. The patient tolerated the procedure well. Review of images at rest and following stress indicates an inferolateral perfusion defect that is predominantly fixed. Gated images show well preserved global left ventricular systolic function. There appears to be basal inferolateral hypokinesis. Left ventricular ejection fraction is calculated to be 83%. Left ventricular end diastolic volume is 69 mL. TID is absent (0.74). CONCLUSIONS: 1. Inferolateral myocardial infarction with a small amount of stephenie-infarct ischemia. 2. Basal inferolateral hypokinesis. 3. Well preserved global left ventricular systolic function. Left ventricular ejection fraction is calculated to be 83%. Job ID: [id number] DocumentID: [id number] Dictated Date: 05/01/2021 11:57:13 Catalogue Illustrator Date: 05/01/2021 12:44:50 Dictated By: ROXANNE DELEON MD, MA, FACP, FACC,
== END ==
LOC: CARD 08:15
PROVIDERS: ATTEND Internal Medicine Cardiovascular Disease
DX: I21.19 ST elevation (STEMI) myocardial infarction involving other coronary artery of inferior wall (principal); I25.119 Atherosclerotic heart disease of native coronary artery with unspecified angina pectoris
CPT/HCPCS: 78452; 93017; A9502

== ENCOUNTER → 2021-05-02 | Outpatient (CLI) | payer BC ==
[~2021-05-02] MED LIST changes: -CATHETER FLUSH 10 ML SYR IV PRN; -REGADENOSON 0.4 MG/5 ML SYR (LEXISCAN) IV ONE
== END ==
LOC: CARD 13:00
PROVIDERS: ATTEND Internal Medicine Cardiovascular Disease
DX: I27.21 Secondary pulmonary arterial hypertension (principal)
CPT/HCPCS: 93306

== ENCOUNTER 2021-05-08 13:00 | Day surgery (SDC) | payer BC ==
[2021-05-08] VITALS (12 sets, daily range): BP systolic 109–148; BP diastolic 68–84
[~2021-05-08] VITALS: Ht 177.8 cm; Wt 121.7 kg
[2021-05-08 11:50] LABS: HEMATOCRIT 41 % (40-54); HEMOGLOBIN 13.9 g/dL (13.3-17.7); MEAN CORPUSCULAR HEMOGLOBIN 29 pg (25-34); MEAN CORPUSCULAR HGB CONC 34 g/dL (32-36); MEAN CORPUSCULAR VOLUME 87 fL (80-99); MEAN PLATELET VOLUME 9.2 fL (9.0-12.2); PLATELET COUNT 260 10^3/uL (130-400); WHITE BLOOD COUNT 6.9 10^3/uL (4.3-11.0)
[2021-05-08 12:07] LABS: PROTHROMBIN TIME PATIENT 13.5 SEC (12.2-14.7)
[2021-05-08 12:08] LABS: ALBUMIN 4.2 GM/DL (3.2-4.5); BILIRUBIN,TOTAL 0.7 MG/DL (0.1-1.0); CREATININE SERUM 0.82 MG/DL (0.60-1.30); POTASSIUM 4.5 MMOL/L (3.6-5.0); TOTAL PROTEIN 6.8 GM/DL (6.4-8.2)
[~2021-05-08 13:00] MED LIST changes: -FLUT16SP22 NS; +FLUT16SP22 NSEACH; +HYDR-3820 PO; +NS IV 1000 ML 1,000 ML IV SCH; +NS IV 1000 ML 1,000 ML ONE; +PANT40TA52 PO
--- NOTE | 2021-05-08 13:10 | Cardiac Procedure Note-CS/ASA ---
Pre-Procedure Note Pre-Op Procedure Note H&P Reviewed The H&P was reviewed, patient examined and no changes noted. Date H&P Reviewed: May 08, 2021 Time H&P Reviewed: 12:30 Conscious Sedation Pre-Proced Time 12:30 ASA Score 3 For ASA 3 and 4: Consider anesthesia and medical clearance. Also, for patients with a history of failed moderate sedation consider anesthesia. Airway Lungs Heart ASA score ASA 1: a normal healthy patient ASA 2: a patient with a mild systemic disease (mid diabetes, controlled hypertension, obesity ASA 3: a patient with a severe systemic disease that limits activity (angina, COPD, prior Myocardial infarction) ASA 4: a patient with an incapacitating disease that is a constant threat to life (CHF, renal failure) ASA 5: a moribund patient not expected to survive 24 hrs. (ruptured aneurysm) ASA 6: a declared brain- patient whose organs are being harvested. For emergent operations, add the letter E after the classification Mallampati Classification Grade 2 Sedation Plan Analgesia, Amnesia, Plan communicated to team members, Discussed options with patient/fam, Discussed risks with patient/fam The patient is an appropriate candidate to undergo the planned procedure, sedation, and anesthesia. The patient immediately re-assessed prior to indication. ROXANNE AL MD FACP FAC CCDS May 08, 2021 13:10
--- NOTE | 2021-05-08 13:14 | Discharge Inst-Cardiology ---
Discharge Inst-Cardiac Discharge Medications Continued Medications: Amlodipine Besylate (Amlodipine Besylate) 10 Mg Tablet 10 MG PO DAILY, TAB Aspirin (Aspirin EC) 81 Mg Tablet.dr 81 MG PO DAILY, TAB Atorvastatin Calcium (Atorvastatin Calcium) 40 Mg Tablet 40 MG PO HS, TAB Clopidogrel Bisulfate (Plavix) 75 Mg Tablet 75 MG PO HS, TAB Doxazosin Mesylate (Doxazosin Mesylate) 4 Mg Tablet 4 MG PO HS, TAB Ergocalciferol (Vitamin D2) (Vitamin D2) 1,250 Mcg Capsule 1250 MCG PO MON,THUR, CAP Fluticasone Propionate (Fluticasone Propionate) 16 Gm [place].susp 2 SPRAYS NSEACH DAILY, EA Hydrocodone/Acetaminophen (Hydrocodone-Acetamin 10-325 mg) 1 Each Tablet 1 EACH PO QID PRN for PAIN-MODERATE (5-7), TAB Insulin Aspart (Novolog Flexpen) 300 Units/3 Ml Solution UNITS SQ TIDPC, EA USES PER SLIDING SCALE Insulin Detemir (Levemir Flextouch) 100 Unit/1 Ml Insuln.pen 90 UNITS SC HS, EA Lisinopril (Lisinopril) 20 Mg Tablet 20 MG PO HS, TAB Loratadine (Loratadine) 10 Mg Tablet 10 MG PO DAILY PRN for ALLERGY SYMPTOMS, TAB Montelukast Sodium (Montelukast Sodium) 10 Mg Tablet 10 MG PO DAILY, TAB Nitroglycerin (Nitroglycerin) 0.4 Mg Tab.subl 0.4 MG SL UD PRN for CHEST PAIN, TAB Pantoprazole Sodium (Pantoprazole Sodium) 40 Mg Tablet.dr 40 MG PO DAILY, TAB Potassium Chloride (K-Tab ER) 10 Meq Tablet.er 20 MEQ PO BID, TAB TAKES 2 (10MEQ) TABS Spironolactone (Spironolactone) 50 Mg Tablet 50 MG PO DAILY, TAB Tizanidine HCl (Tizanidine HCl) 4 Mg Tablet 2-4 MG PO 0700,1300 PRN for MUSCLE SPASMS, TAB TAKES TO 1 TAB IN THE MORNING AND AFTERNOON NEEDED Tizanidine HCl (Tizanidine HCl) 4 Mg Tablet 8 MG PO HS, TAB TAKES 2 (4MG) TABS Torsemide (Torsemide) 10 Mg Tablet 10 MG PO DAILY, TAB ROXANNE AL MD FACP FAC CCDS May 08, 2021 13:14
--- NOTE | 2021-05-08 13:14 | Discharge Inst-Post CATH ---
Discharge Inst-CATH/EP Post Cardiac Cath/EP D/C Inst Follow Up/Plan F/u with Dr Deleon in 2 weeks ACTIVITY * Go Home directly and rest. * Limit activity of the leg (or wrist if it was used) for 7 days including aerobics, swimming, jogging, bicycling, etc. * Restrict stair-climbing for 7 days if possible, if not, climb up with your no n-cath leg, then bring together on the same step. * Avoid lifting, pushing, pulling or excessive movement of the affected ext remity for 7 days. * Customary sexual activity may be resumed after 2 days-use caution not to use a position that strains or causes pain to the affected extremity. * No driving for 24 hours. * NO SMOKING. * Avoid straining for bowel movements for 7 days. * Gentle walking on level ground is allowed. * Returning to work will depend on the type of procedure and the results. Your doctor will discuss this with you. CALL YOUR DOCTOR FOR ANY OF THE FOLLOWING: *If bleeding from the puncture site occurs- Apply gentle pressure to site with clean cloth and call your doctor or EMS. * If a knot or lump forms under the skin, increases in size, or causes pain. * If bruising appears to be worsening or moving further down your leg instead of disappearing. * Temperature above 101 F. CARE OF YOUR GROIN INCISION; * Bruising or purple discoloration of the skin near the puncture site is common. * You may shower only, no bathtub bathing for 5 days. Be careful to avoid slipping as your leg may feel stiff. * If a closure device was used on your femoral artery, please see the attached guide regarding care of the device and your leg. * Leave dressing on FOR 24 hours. CARE OF YOUR WRIST INCISION; * Bruising or purple discoloration of the skin near the puncture site is common. * You may shower. * DO NOT submerge wrist. * Leave dressing on FOR 24 hours. ROXANNE DELEON MD FACP FAC CCDS May 08, 2021 13:14
[2021-05-08] MEDS ORDERED: NS IV 1000 ML 1,000 ML IV SCH (13:15)
[2021-05-08] MEDS ORDERED: PATIENT MAY USE OWN MEDS, ALL PO SCH (13:15)
--- NOTE | 2021-05-08 16:16 | CARDIAC CATHETERIZATION ---
DATE OF SERVICE: 05/08/2021 CARDIAC CATHETERIZATION REPORT The patient is a 65-year-old gentleman who is known to have coronary artery disease and has had stenting of the right coronary artery a few years ago. He has multiple coronary artery disease risk factors. Recent myocardial perfusion imaging study indicated inferolateral myocardial infarction with stephenie-infarct ischemia. There was inferolateral hypokinesis and global left ventricular systolic function was well preserved. He has been reporting symptoms of chest discomfort and shortness of breath. Given these data, cardiac catheterization was recommended and informed consent was obtained. DESCRIPTION OF PROCEDURE: He was brought to the cardiac catheterization laboratory in a fasting state. The right groin was prepared and draped in the usual sterile fashion. Lidocaine 1% was infused to local anesthesia. Modified Seldinger technique was used to advance a 5-[place] sheath into the right femoral artery, 5-[place] JL4 catheter for left coronary angiography, 5-[place] JR4 catheter was used for right coronary angiography, 5-[place] pigtail catheter was used for left heart catheterization and left ventricular angiography. Angiography of the right femoral artery was carried out through the sheath. Mynx was used to achieve hemostasis. He tolerated the procedure well. HEMODYNAMICS: Left ventricular end-diastolic pressure following coronary angiography was 27 mmHg. There is no significant pressure gradient on pullback across the aortic valve. Ascending aortic pressure was 126/74 with a mean of 97 mmHg. CORONARY ANGIOGRAPHY: Left main coronary artery, left anterior descending artery, left circumflex artery do not exhibit angiographically significant coronary artery disease. The right coronary artery is dominant. There is a patent stent in the mid right coronary artery. There is mild plaque in the right coronary artery. LEFT VENTRICULAR ANGIOGRAPHY: Global left ventricular systolic function is well preserved. No distinct regional wall motion abnormality is seen in the right anterior oblique projection. Left ventricular ejection fraction is approximately 65%. CONCLUSIONS: 1. Mild coronary artery disease. 2. Patent stent in the mid right coronary artery that is known to be Xience Alpine 4.0 x 15 mm stent that was placed in 2017. 3. Elevated left ventricular end-diastolic pressure. 4. Well preserved global left ventricular systolic function with an ejection fraction of 65%. DISCUSSION AND RECOMMENDATIONS: Based on results of the study, it appears appropriate to continue a conservative approach. Risk factor modification has been reviewed. Current regimen is being continued. Outpatient followup is advised. Job ID: [id number] DocumentID: [id number] Dictated Date: 05/08/2021 13:21:34 Advertising Strategist Date: 05/08/2021 16:14:51 Dictated By: ROXANNE AL MD, MA, FACP, FACC,
== END 2021-05-08 16:40 | disposition home or self-care (01) ==
LOC: CATH 13:00
PROVIDERS: ATTEND Internal Medicine Cardiovascular Disease
DX: R07.89 Other chest pain (principal); I25.10 Atherosclerotic heart disease of native coronary artery without angina pectoris; E11.22 Type 2 diabetes mellitus with diabetic chronic kidney disease; I12.9 Hypertensive chronic kidney disease with stage 1 through stage 4 chronic kidney disease, or unspecified chronic kidney disease; N18.2 Chronic kidney disease, stage 2 (mild); G47.33 Obstructive sleep apnea (adult) (pediatric); I47.1 Supraventricular tachycardia; I27.21 Secondary pulmonary arterial hypertension; E78.2 Mixed hyperlipidemia; I65.23 Occlusion and stenosis of bilateral carotid arteries; Z95.5 Presence of coronary angioplasty implant and graft; Z79.899 Other long term (current) drug therapy; Z79.82 Long term (current) use of aspirin; Z79.02 Long term (current) use of antithrombotics/antiplatelets; Z79.891 Long term (current) use of opiate analgesic
CPT/HCPCS: 80053; 80061; 85027; 85610; 85730; 87081; 93458; C1760; C1894; 36415